=== PATIENT | male | born 1980 | race Caucasian/White ===

== ENCOUNTER 2016-10-29 21:00 | Emergency (ER) | payer OTHER ==
[2016-10-29 21:20] VITALS: BP 158/86
--- NOTE | 2016-10-29 23:52 | ED ---
Antoine Weinberg Adam, scribed for Rashel Azevedo MD on 10/29/16 at 2129 . Complex/Multi-Sys Presentation - HPI Summary HPI Summary: Pt is a 35 year old male presenting with concerns about fluctuating body temperature today. He states that his temperature was 95.6 F at 14:00 today, using an oral thermometer. He also c/o sinus congestion for months and has been on prednisone for 6 days (with 4 left). He began having a sinus FOX today. He also c/o intermittent diarrhea and constipation for over a month. He reports having a productive cough with phlegm as well. PMHx of thyroid disease, asthma, sleep apnea, and anxiety. - History Of Current Complaint Chief Complaint: EDGeneral Time Seen by Provider: 10/29/16 21:21 Hx Obtained From: Patient Onset/Duration: Gradual Onset, Lasting Hours, Still Present Timing: Constant Severity Currently: Moderate Severity Initially: Moderate Character: Unable To Describe - Fluctuating temperature Aggravating Factor(s): Nothing Alleviating Factor(s): Nothing Associated Signs And Symptoms: Positive: Other - Sinus congestion - Allergies/Home Medications Allergies/Adverse Reactions: Allergies Allergy/AdvReac Type Severity Reaction Status Date / Time Bupropion [From Zyban] Allergy Severe Difficulty Verified 10/17/16 16:58 Breathing Penicillins Allergy Severe Rash Verified 10/17/16 16:58 Cephalexin [From Keflex] Allergy Mild Rash Verified 10/17/16 16:58 Famotidine [From Pepcid AC] Allergy Mild Rash Verified 10/17/16 16:58 Fluticasone Allergy Mild Difficulty Verified 10/17/16 16:58 [From Advair Diskus] Breathing Moxifloxacin [From Avelox] Allergy Mild Hives Verified 10/17/16 16:58 Omeprazole [From Prilosec] Allergy Mild Rash Verified 10/17/16 16:58 Quinolones Allergy Mild Rash Verified 10/17/16 16:58 Salmeterol Allergy Mild Difficulty Verified 10/17/16 16:58 [From Advair Diskus] Breathing Sulfamethoxazole Allergy Mild Rash Verified 10/17/16 16:58 w/Trimethoprim [From Bactrim] Codeine Allergy Unknown Difficulty Verified 10/17/16 16:58 Breathing Doxycycline Allergy Unknown Rash Verified 10/17/16 16:58 Sertraline [From Zoloft] AdvReac Severe Hallucinati Verified 10/17/16 16:58 ons Buspirone [From Buspar] AdvReac Mild Dizziness Verified 10/17/16 16:58 Escitalopram [From Lexapro] AdvReac Unknown See Comment Verified 10/17/16 16:58 Citalopram [From Celexa] AdvReac See Comment Verified 10/17/16 16:58 PMH/Surg Hx/FS Hx/Imm Hx Endocrine/Hematology History: Reports: Hx Thyroid Disease Denies: Hx Anticoagulant Therapy, Hx Diabetes Cardiovascular History: Denies: Hx Congestive Heart Failure, Hx Deep Vein Thrombosis, Hx Hypertension , Hx Myocardial Infarction, Hx Pacemaker/ICD Respiratory History: Reports: Hx Asthma, Hx Sleep Apnea - that was cured via surgery Denies: Hx Chronic Obstructive Pulmonary Disease (COPD), Hx Lung Cancer, Hx Pneumonia, Hx Pulmonary Embolism GI History: Denies: Hx Gall Bladder Disease, Hx Gastrointestinal Bleed, Hx Ulcer, Hx Urosepsis History: Denies: Hx Kidney Stones, Hx Renal Disease Sensory History: Denies: Hx Contacts or Glasses, Hx Hearing Aid Opthamlomology History: Denies: Hx Contacts or Glasses Neurological History: Denies: Hx Dementia, Hx Migraine, Hx Seizures Psychiatric History: Reports: Hx Anxiety, Hx Panic Disorder - TO TAKE MEDICATION PRIOR TO MRI Denies: Hx Depression, Hx Schizophrenia, Hx Bipolar Disorder, Hx Substance Abuse - Surgical History Surgery Procedure, Year, and Place: RIGHT ELBOW RECONSTRUCTION SURGERY 1983,. SLEEP APNEA SURGERY 2010 - Tonsilectomy, uvula, stretching throat. CHOLECYSTECTOMY - 09/10/16 - Immunization History Date of Tetanus Vaccine: unknown Date of Influenza Vaccine: 07/12/15 Infectious Disease History: No Infectious Disease History: Denies: Hx Clostridium Difficile, Hx Hepatitis, Hx Human Immunodeficiency Virus (HIV), Hx of Known/Suspected MRSA, Hx Shingles, Hx Tuberculosis, Hx Known/ Suspected VRE, Hx Known/Suspected VRSA, History Other Infectious Disease, Traveled Outside the [place] in Last 30 Days - Family History Known Family History: Positive: Cardiac Disease, Hypertension, Diabetes, Other - TIA on paternal side, cancer on both sides, blood clots Family History: FHx of seasonal allergies - both parents - Social History Occupation: Unemployed Lives: Alone Alcohol Use: None Hx Substance Use: Yes Substance Use Comment - Amount & Last Used: benzo's in the past Hx Tobacco Use: Yes Smoking Status (MU): Former Smoker Type: Cigarettes Amount Used/How Often: 8 cigs per day previously Length of Time of Smoking/Using Tobacco: mid April 2016 Have You Smoked in the Last Year: No Review of Systems Positive: Other - Fluctuating temperature Positive: Other - Sinus congestion Positive: Cough Positive: Diarrhea Positive: Headache All Other Systems Reviewed And Are Negative: Yes Physical Exam Triage Information Reviewed: Yes Vital Signs On Initial Exam: Initial Vitals Temp Pulse Resp BP Pulse Ox 98.7 F 77 16 158/86 95 10/29/16 21:16 10/29/16 21:16 10/29/16 21:16 10/29/16 21:16 10/29/16 21:16 Vital Signs Reviewed: Yes Appearance: Positive: Well-Appearing, No Pain Distress Skin: Positive: Warm, Skin Color Reflects Adequate Perfusion, Dry Head/Face: Positive: Normal Head/Face Inspection Eyes: Positive: Normal ENT: Positive: Normal ENT inspection Neck: Positive: Supple, Nontender Respiratory/Lung Sounds: Positive: Clear to Auscultation, Breath Sounds Present Cardiovascular: Positive: RRR Abdomen Description: Positive: Nontender, Soft Bowel Sounds: Positive: Present Musculoskeletal: Positive: Normal Neurological: Positive: Normal Psychiatric: Positive: Normal, Affect/Mood Appropriate Diagnostics - Vital Signs Vital Signs Temp Pulse Resp BP Pulse Ox 10/29/16 21:16 98.7 F 77 16 158/86 95 - Laboratory Lab Statement: Any lab studies that have been ordered have been reviewed, and results considered in the medical decision making process. Complex Multi-Symp Course/Dx - Diagnoses Provider Diagnoses: Anxiety Discharge - Discharge Plan Condition: Stable Disposition: HOME Referrals: Shad Uriostegui MD [Primary Care Provider] - Additional Instructions: Return to the ED for any problems. Follow up with Dr. Uriostegui. The documentation as recorded by the Antoine castillo Adam accurately reflects the service I personally performed and the decisions made by , Rashel Azevedo MD.
== END 2016-10-29 22:07 | disposition home or self-care (01) ==
LOC: ED 21:00
DX: F41.9 Anxiety disorder, unspecified (principal); Z86.39 Personal history of other endocrine, nutritional and metabolic disease
CPT/HCPCS: 99281

== ENCOUNTER 2016-10-30 19:05 | Emergency (ER) | payer OTHER ==
[2016-10-30 19:20] VITALS: BP 135/95
--- NOTE | 2016-10-30 20:33 | UC ---
Cardiac HPI - HPI Summary HPI Summary: Started getting crampy pain through upper chest, back, shoulders, and low back about 3 hours ago. Has been taking prednisone for several days for asthma symptoms. Denies SOB, sweating, n/v, or hx of cardiac disease. - History of Current Complaint Chief Complaint: UC Stated Complaint: CHEST PAIN Time Seen by Provider: 10/30/16 20:12 Hx Obtained From: Patient Onset/Duration: Sudden Onset, Lasting Minutes, Still Present Timing: Constant Initial Severity: Moderate Current Severity: Mild Chest Pain Location: Diffuse Character: Sharp/Stabbing Aggravating: Exertion, Movement Alleviating: Nothing - getting better over time Associated Signs & Symptoms: Positive: Chest Pain, Cough, Back Pain. Negative: Headaches, Numbness, Tingling, Weakness, Dizziness, SOB, Swelling, Syncope, Fever, Nausea/Vomiting, Hemoptysis - Risk Factors Cardiac Risk Factors: Smoking, Family History - Allergy/Home Medications Allergies/Adverse Reactions: Allergies Allergy/AdvReac Type Severity Reaction Status Date / Time Bupropion [From Zyban] Allergy Severe Difficulty Verified 10/17/16 16:58 Breathing Penicillins Allergy Severe Rash Verified 10/17/16 16:58 Cephalexin [From Keflex] Allergy Mild Rash Verified 10/17/16 16:58 Famotidine [From Pepcid AC] Allergy Mild Rash Verified 10/17/16 16:58 Fluticasone Allergy Mild Difficulty Verified 10/17/16 16:58 [From Advair Diskus] Breathing Moxifloxacin [From Avelox] Allergy Mild Hives Verified 10/17/16 16:58 Omeprazole [From Prilosec] Allergy Mild Rash Verified 10/17/16 16:58 Quinolones Allergy Mild Rash Verified 10/17/16 16:58 Salmeterol Allergy Mild Difficulty Verified 10/17/16 16:58 [From Advair Diskus] Breathing Sulfamethoxazole Allergy Mild Rash Verified 10/17/16 16:58 w/Trimethoprim [From Bactrim] Codeine Allergy Unknown Difficulty Verified 10/17/16 16:58 Breathing Doxycycline Allergy Unknown Rash Verified 10/17/16 16:58 Sertraline [From Zoloft] AdvReac Severe Hallucinati Verified 10/17/16 16:58 ons Buspirone [From Buspar] AdvReac Mild Dizziness Verified 10/17/16 16:58 Escitalopram [From Lexapro] AdvReac Unknown See Comment Verified 10/17/16 16:58 Citalopram [From Celexa] AdvReac See Comment Verified 10/17/16 16:58 Home Medications: Home Medications predniSONE TAB* [Deltasone TAB*] 40 mg PO DAILY 10/30/16 [History Confirmed 01/11] PMH/Surg Hx/FS Hx/Imm Hx Endocrine History Of: Reports: Thyroid Disease, Hypothyroidism, Dyslipidemia - Not on medications. Denies: Diabetes Cardiovascular History Of: Denies: Cardiac Disorders, Hypertension, Pacemaker/ICD, Myocardial Infarction , Congestive Heart Failure, Atrial Fibrillation, Deep Vein Thrombosis, Bleeding Disorders Respiratory History Of: Reports: Asthma Denies: COPD, Bronchitis, Pneumonia, Pulmonary Embolism GI/ History Of: Denies: Gastroesophageal Reflux, Ulcer, Gastrointestinal Bleed, Gall Bladder Disease, Kidney Stones, Diverticulitis, Renal Disease, Urosepsis Neurological History Of: Denies: CVA, Dementia, Seizures, Migraine Psychological History Of: Reports: Anxiety Denies: Depression, Bipolar Disorder, Schizophrenia, Post Traumatic Stress Disorder Cancer History Of: Denies: Lung Cancer, Colorectal Cancer, Breast Cancer, Prostate Cancer, Cervical Cancer Other History Of: Negative For: HIV, Hepatitis B, Hepatitis C, Anticoagulant Therapy - Surgical History Surgical History: Yes Surgery Procedure, Year, and Place: RIGHT ELBOW RECONSTRUCTION SURGERY 1983,. SLEEP APNEA SURGERY 2010 - Tonsilectomy, uvula, stretching throat. CHOLECYSTECTOMY - 09/10/16 - Family History Known Family History: Positive: Cardiac Disease - two uncles in their 40s, no primary relatives, Hypertension, Diabetes, Other - TIA on paternal side, cancer on both sides, blood clots Family History: FHx of seasonal allergies - both parents - Social History Occupation: Employed Part-time Alcohol Use: None Substance Use Type: None Substance Use Comment - Amount & Last Used: benzo's in the past Smoking Status (MU): Former Smoker Type: Cigarettes Amount Used/How Often: 8 cigs per day previously Length of Time of Smoking/Using Tobacco: mid April 2016 Have You Smoked in the Last Year: No When Did the Patient Quit Smoking/Using Tobacco: quit 4 days ago Household Exposure Type: Cigarettes - Immunization History Most Recent Influenza Vaccination: Most Recent Tetanus Shot: utd Most Recent Pneumonia Vaccination: 2016 Review of Systems Constitutional: Negative Skin: Negative Eyes: Negative ENT: Negative Respiratory: Cough Cardiovascular: Chest Pain Gastrointestinal: Negative Genitourinary: Negative Motor: Negative Neurovascular: Negative Musculoskeletal: Negative Neurological: Negative Psychological: Negative All Other Systems Reviewed And Are Negative: Yes Physical Exam Triage Information Reviewed: Yes Appearance: Well-Appearing, No Pain Distress, Well-Nourished Vital Signs: Initial Vital Signs Pulse 88 10/30/16 19:16 Resp 16 10/30/16 19:16 BP 135/95 10/30/16 19:16 Pulse Ox 96 10/30/16 19:16 Vital Signs Reviewed: Yes Eye Exam: Normal Eyes: Positive: Conjunctiva Clear ENT Exam: Normal ENT: Positive: Normal ENT inspection, Hearing grossly normal, Pharynx normal, TMs normal Dental Exam: Normal Dental: Negative: Percussion Tenderness @, Dental Fracture @ Neck exam: Normal Neck: Positive: Supple, Nontender, No Lymphadenopathy Respiratory: Positive: Lungs clear, Normal breath sounds, No respiratory distress, No accessory muscle use. Negative: Chest non-tender - mild soreness with palpation anterior sternum and low back Cardiovascular Exam: Normal Cardiovascular: Positive: RRR, No Murmur Musculoskeletal Exam: Normal Neurological Exam: Normal Neurological: Positive: Alert Psychological Exam: Normal Skin Exam: Normal - Clinical Impression Provider Diagnoses: chest wall pain Discharge - Discharge Plan Condition: Stable Disposition: HOME Patient Education Materials: Thoracic Pain (ED) Referrals: Shad Uriostegui MD [Primary Care Provider] - Additional Instructions: As we discussed, I do not see any strong indications of heart problems on exam. Furthermore, your age helps put you in a low-risk category. If your symptoms suddenly worsen, or if you develop nausea, vomiting, sweating, or shortness of breath, please go right to the emergency department.
== END 2016-10-30 20:28 | disposition home or self-care (01) ==
LOC: UCEAST 19:05
DX: R07.89 Other chest pain (principal); J45.909 Unspecified asthma, uncomplicated; Z87.891 Personal history of nicotine dependence; Z88.0 Allergy status to penicillin; Z88.1 Allergy status to other antibiotic agents; Z88.5 Allergy status to narcotic agent; Z88.8 Allergy status to other drugs, medicaments and biological substances
CPT/HCPCS: 93005; 99211; G0463

== ENCOUNTER 2016-11-01 22:31 | Emergency (ER) | payer OTHER ==
--- NOTE | 2016-11-01 23:47 | ED ---
Nina Weinberg Claudia, scribed for Tj Villarreal MD on 11/01/16 at 2309 . Abdominal Pain/Male - HPI Summary HPI Summary: 35 year old male presents to the ED with abd pain and nausea. Pt notes gradual onset over the last week worsening today. Pt describes the abd pain as cramping. Pt was able to eat a sub and several fiber one bars. Pt notes pain aggravated with PO intake. - History of Current Complaint Chief Complaint: EDAbdPain Stated Complaint: ABD PAIN Time Seen by Provider: 11/01/16 23:03 Hx Obtained From: Patient Onset/Duration: Gradual Onset, Lasting Days, Worse Since - today Timing: Constant Location: Diffuse Radiates: No Character: Cramping Aggravating Factor(s): Food Alleviating Factor(s): Nothing Associated Signs And Symptoms: Positive: Nausea. Negative: Vomiting, Diarrhea - Allergies/Home Medications Allergies/Adverse Reactions: Allergies Allergy/AdvReac Type Severity Reaction Status Date / Time Bupropion [From Zyban] Allergy Severe Difficulty Verified 10/17/16 16:58 Breathing Penicillins Allergy Severe Rash Verified 10/17/16 16:58 Cephalexin [From Keflex] Allergy Mild Rash Verified 10/17/16 16:58 Famotidine [From Pepcid AC] Allergy Mild Rash Verified 10/17/16 16:58 Fluticasone Allergy Mild Difficulty Verified 10/17/16 16:58 [From Advair Diskus] Breathing Moxifloxacin [From Avelox] Allergy Mild Hives Verified 10/17/16 16:58 Omeprazole [From Prilosec] Allergy Mild Rash Verified 10/17/16 16:58 Quinolones Allergy Mild Rash Verified 10/17/16 16:58 Salmeterol Allergy Mild Difficulty Verified 10/17/16 16:58 [From Advair Diskus] Breathing Sulfamethoxazole Allergy Mild Rash Verified 10/17/16 16:58 w/Trimethoprim [From Bactrim] Codeine Allergy Unknown Difficulty Verified 10/17/16 16:58 Breathing Doxycycline Allergy Unknown Rash Verified 10/17/16 16:58 Sertraline [From Zoloft] AdvReac Severe Hallucinati Verified 10/17/16 16:58 ons Buspirone [From Buspar] AdvReac Mild Dizziness Verified 10/17/16 16:58 Escitalopram [From Lexapro] AdvReac Unknown See Comment Verified 10/17/16 16:58 Citalopram [From Celexa] AdvReac See Comment Verified 10/17/16 16:58 PMH/Surg Hx/FS Hx/Imm Hx Previously Healthy: Yes Endocrine/Hematology History: Reports: Hx Thyroid Disease Denies: Hx Anticoagulant Therapy, Hx Diabetes Cardiovascular History: Denies: Hx Congestive Heart Failure, Hx Deep Vein Thrombosis, Hx Hypertension , Hx Myocardial Infarction, Hx Pacemaker/ICD Respiratory History: Reports: Hx Asthma, Hx Sleep Apnea - that was cured via surgery Denies: Hx Chronic Obstructive Pulmonary Disease (COPD), Hx Lung Cancer, Hx Pneumonia, Hx Pulmonary Embolism GI History: Denies: Hx Gall Bladder Disease, Hx Gastrointestinal Bleed, Hx Ulcer, Hx Urosepsis History: Denies: Hx Kidney Stones, Hx Renal Disease Sensory History: Denies: Hx Contacts or Glasses, Hx Hearing Aid Opthamlomology History: Denies: Hx Contacts or Glasses Neurological History: Denies: Hx Dementia, Hx Migraine, Hx Seizures Psychiatric History: Reports: Hx Anxiety, Hx Panic Disorder - TO TAKE MEDICATION PRIOR TO MRI Denies: Hx Depression, Hx Schizophrenia, Hx Bipolar Disorder, Hx Substance Abuse - Surgical History Surgery Procedure, Year, and Place: RIGHT ELBOW RECONSTRUCTION SURGERY 1983,. SLEEP APNEA SURGERY 2010 - Tonsilectomy, uvula, stretching throat. CHOLECYSTECTOMY - 09/10/16 - Immunization History Date of Tetanus Vaccine: unknown Date of Influenza Vaccine: 07/12/15 Infectious Disease History: Denies: Hx Clostridium Difficile, Hx Hepatitis, Hx Human Immunodeficiency Virus (HIV), Hx of Known/Suspected MRSA, Hx Shingles, Hx Tuberculosis, Hx Known/ Suspected VRE, Hx Known/Suspected VRSA, History Other Infectious Disease, Traveled Outside the [place] in Last 30 Days - Family History Known Family History: Positive: Cardiac Disease - two uncles in their 40s, no primary relatives, Hypertension, Diabetes, Other - TIA on paternal side, cancer on both sides, blood clots Family History: FHx of seasonal allergies - both parents - Social History Occupation: Employed Full-time Lives: With Family Alcohol Use: None Hx Substance Use: Yes Substance Use Type: Reports: None Substance Use Comment - Amount & Last Used: benzo's in the past Hx Tobacco Use: Yes Smoking Status (MU): Former Smoker Type: Cigarettes Amount Used/How Often: 8 cigs per day previously Length of Time of Smoking/Using Tobacco: mid April 2016 Have You Smoked in the Last Year: No Review of Systems Constitutional: Negative Negative: Fever Eyes: Negative ENT: Negative Cardiovascular: Negative Respiratory: Negative Positive: Abdominal Pain, Nausea. Negative: Vomiting Genitourinary: Negative Musculoskeletal: Negative Skin: Negative Neurological: Negative Psychological: Normal All Other Systems Reviewed And Are Negative: Yes Physical Exam Triage Information Reviewed: Yes Vital Signs Reviewed: Yes Appearance: Positive: Well-Appearing, No Pain Distress Skin: Positive: Warm Head/Face: Positive: Normal Head/Face Inspection Eyes: Positive: GABINO ENT: Positive: Hearing grossly normal Neck: Positive: Supple Respiratory/Lung Sounds: Positive: Clear to Auscultation, Breath Sounds Present Cardiovascular: Positive: Normal Abdomen Description: Positive: Nontender, No Organomegaly, Soft Bowel Sounds: Positive: Present Neurological: Positive: Sensory/Motor Intact, Alert, Oriented to Person Place, Time, Normal Gait Psychiatric: Positive: Affect/Mood Appropriate AVPU Assessment: Alert - [place] Coma Scale Coma Scale Total: 15 Re-Evaluation - Re-Evaluation First Eval Change: Improved Abdominal Pain Fem Course/Dx - Course Assessment/Plan: Pt presents with abd pain and nausea. After observation pt is agreeable with d/c home and follow-up with PCP and bland diet. - Diagnoses Provider Diagnoses: Abdominal pain Discharge - Discharge Plan Condition: Stable Disposition: HOME Patient Education Materials: Diet for Ulcers and Gastritis (ED), Acute Nausea and Vomiting (ED), Acute Abdominal Pain (ED) Referrals: Shad Uriostegui MD [Primary Care Provider] - 2 Days The documentation as recorded by the Nina castillo Claudia accurately reflects the service I personally performed and the decisions made by , Tj Villarreal MD.
== END 2016-11-01 23:29 | disposition home or self-care (01) ==
LOC: ED 22:31
DX: R10.9 Unspecified abdominal pain (principal); R11.0 Nausea; Z87.891 Personal history of nicotine dependence
CPT/HCPCS: 99285

== ENCOUNTER 2016-11-02 17:06 | Emergency (ER) | payer OTHER ==
[2016-11-02 17:29] VITALS: BP 135/95
[2016-11-03 12:14] LABS: Hematocrit 50 % (42-52); Hemoglobin 16.5 g/dl (14.0-18.0); Mean Corpuscular HGB Conc 33 g/dl (31-36); Mean Corpuscular Hemoglobin 29 pg (27-31); Mean Corpuscular Volume 87 fL (80-94); Mean Platelet Volume 10 um3 (7.4-10.4); Red Blood Count 5.75 10^6/ul (4.0-5.4); Red Cell Distribution Width 14 % (10.5-15); White Blood Count 13.2 10^3/ul (3.5-10.8)
[2016-11-03 12:15] LABS: Add Diff/Slide Review? Slide Review Added; Comments Flag Yes
[2016-11-03 12:31] LABS: TSH (Thyroid Stimulating Horm) 1.57 mcIU/mL (0.34-5.60)
[2016-11-03 13:02] LABS: BUN/Creatinine Ratio 13.4 (8-20); Calcium 10.3 mg/dL (8.6-10.3); EGFR Non-African American 105.7 (>60); Magnesium 2.4 mg/dL (1.9-2.7); Potassium 4.4 mmol/L (3.5-5.0)
--- NOTE | 2016-12-17 14:23 | UC ---
Qiana Weinberg Anna, scribed for Briana Andrade MD on 11/02/16 at 1812 . Dizzy HPI HPI Summary: Patient is a 35 y/o male coming to [facility] presenting with gradual worsening of dizziness and lightheadedness that began one week ago. The patient additionally reports left abdominal pain and shoulder pain that began at the same time. Per triage notes, he additionally reports his appetite has decreased over the last week. He has also felt some congestion. He had a thyroid panel done in July that came back normal. He reports his anxiety has been exacerbated lately, in addition to his depression. He has an appointment scheduled with his doctor for Saturday, four days from now. Mr. Segovia is requesting that his thyroid be checked. "I think it is off." - History Of Current Complaint Chief Complaint: UCDizziness Stated Complaint: LIGHTHEADED Time Seen by Provider: 11/02/16 17:47 Hx Obtained From: Patient - Allergies/Home Medications Allergies/Adverse Reactions: Allergies Allergy/AdvReac Type Severity Reaction Status Date / Time Bupropion [From Zyban] Allergy Severe Difficulty Verified 12/16/16 13:57 Breathing Penicillins Allergy Severe Rash Verified 12/16/16 13:57 Cephalexin [From Keflex] Allergy Mild Rash Verified 12/16/16 13:57 Famotidine [From Pepcid AC] Allergy Mild Rash Verified 12/16/16 13:57 Fluticasone Allergy Mild Difficulty Verified 12/16/16 13:57 [From Advair Diskus] Breathing Moxifloxacin [From Avelox] Allergy Mild Hives Verified 12/16/16 13:57 Omeprazole [From Prilosec] Allergy Mild Rash Verified 12/16/16 13:57 Quinolones Allergy Mild Rash Verified 12/16/16 13:57 Salmeterol Allergy Mild Difficulty Verified 12/16/16 13:57 [From Advair Diskus] Breathing Sulfamethoxazole Allergy Mild Rash Verified 12/16/16 13:57 w/Trimethoprim [From Bactrim] Codeine Allergy Unknown Difficulty Verified 12/16/16 13:57 Breathing Doxycycline Allergy Unknown Rash Verified 12/16/16 13:57 Albuterol [From Ventolin] Allergy Difficulty Verified 12/16/16 13:57 Breathing Sertraline [From Zoloft] AdvReac Severe Hallucinati Verified 12/16/16 13:57 ons Buspirone [From Buspar] AdvReac Mild Dizziness Verified 12/16/16 13:57 Escitalopram [From Lexapro] AdvReac Unknown See Comment Verified 12/16/16 13:57 Citalopram [From Celexa] AdvReac See Comment Verified 12/16/16 13:57 PMH/Surg Hx/FS Hx/Imm Hx Endocrine History Of: Reports: Thyroid Disease, Hypothyroidism, Dyslipidemia - Not on medications. Denies: Diabetes Cardiovascular History Of: Denies: Cardiac Disorders, Hypertension, Pacemaker/ICD, Myocardial Infarction , Congestive Heart Failure, Atrial Fibrillation, Deep Vein Thrombosis, Bleeding Disorders Respiratory History Of: Reports: Asthma Denies: COPD, Bronchitis, Pneumonia, Pulmonary Embolism GI/ History Of: Denies: Gastroesophageal Reflux, Ulcer, Gastrointestinal Bleed, Gall Bladder Disease, Kidney Stones, Diverticulitis, Renal Disease, Urosepsis Neurological History Of: Denies: CVA, Dementia, Seizures, Migraine Psychological History Of: Reports: Anxiety Denies: Depression, Bipolar Disorder, Schizophrenia, Post Traumatic Stress Disorder Cancer History Of: Denies: Lung Cancer, Colorectal Cancer, Breast Cancer, Prostate Cancer, Cervical Cancer Other History Of: Negative For: HIV, Hepatitis B, Hepatitis C, Anticoagulant Therapy - Surgical History Surgical History: Yes Surgery Procedure, Year, and Place: RIGHT ELBOW RECONSTRUCTION SURGERY 1983,. SLEEP APNEA SURGERY 2010 - Tonsilectomy, uvula, stretching throat. CHOLECYSTECTOMY - 09/10/16 - Family History Known Family History: Positive: Cardiac Disease - two uncles in their 40s, no primary relatives, Hypertension, Diabetes, Other - TIA on paternal side, cancer on both sides, blood clots Family History: FHx of seasonal allergies - both parents - Social History Alcohol Use: None Substance Use Type: None Substance Use Comment - Amount & Last Used: benzo's in the past Smoking Status (MU): Former Smoker Type: Cigarettes Amount Used/How Often: 8 cigs per day previously Length of Time of Smoking/Using Tobacco: mid April 2016 Have You Smoked in the Last Year: No When Did the Patient Quit Smoking/Using Tobacco: quit 4 days ago Household Exposure Type: Cigarettes - Immunization History Most Recent Influenza Vaccination: 2015/2016 Most Recent Tetanus Shot: utd Most Recent Pneumonia Vaccination: 2016 Review of Systems Constitutional: Other - change in appetite ENT: Other - Congestion Gastrointestinal: Abdominal Pain Musculoskeletal: Arthralgia - shoulder pain Neurological: Other - dizziness, lightheadedness Psychological: Anxious, Depressed All Other Systems Reviewed And Are Negative: Yes Physical Exam Triage Information Reviewed: Yes Appearance: Well-Nourished - d Vital Signs: Initial Vital Signs Temp 98.6 F 11/02/16 17:25 Pulse 78 11/02/16 17:25 Resp 18 11/02/16 17:25 BP 135/95 11/02/16 17:25 Pulse Ox 97 11/02/16 17:25 Vital Signs Reviewed: Yes Eye Exam: Normal ENT Exam: Normal ENT: Positive: TM dull - Left TM dull and mendez Neck exam: Normal - No adenopathy appreciated Respiratory Exam: Normal - No dyspnea, no tachypnea, normal respiratory rate. Chest non-tender, lungs clear, normal breath sounds, no respiratory distress, no accessory muscle use. Cardiovascular Exam: Normal - RRR, No murmur, pulses normal - sitting up, Brisk capillary refill Abdomen Description: Positive: Nontender, No Organomegaly, Soft Bowel Sounds: Positive: Hyperactive Musculoskeletal Exam: Normal Musculoskeletal: Positive: Strength Intact Neurological Exam: Normal - Nonfocal, grossly intact Psychological Exam: Normal - Conversing easily and appropriately Skin Exam: Normal - no visible or reported rash Diagnostics - EKG Cardiac Rate: NL - 64 bpm, SR, no change from 10/30/2016 Dizzy Course/Dx - Course Course Of Treatment: No new problems in CCC. Considered below differential diagnoses. Reviewed ed / ccc reports dating back to Aug 2016. Reviewed associated ancillaries. EKG w/o sign change from 10/30/16. Labs drawn (ft4, tsh , bmp, magn). [facility] glucose 113mg/dl. Reviewed w / pt and lubricator granulator present. F/u on Saturday as scheduled. Seek medical attention for worse or new problems in the meantime. Questions answered to the best of my ability. - Differential Dx/Diagnosis Provider Diagnoses: Lightheaded Discharge - Discharge Plan Condition: Stable Disposition: HOME Patient Education Materials: Lightheadedness (ED) Referrals: Shad Uriostegui MD [Primary Care Provider] - Additional Instructions: Please follow up with your primary care provider on Saturday as scheduled. Seek medical attention for worsening problems in the meantime. Blood tests today. See attached. Blood glucose fingerstick is 113mg/dl. The documentation as recorded by the Qiana castillo Anna accurately reflects the service I personally performed and the decisions made by me, Briana Andrade MD.
== END 2016-11-02 19:30 | disposition home or self-care (01) ==
LOC: UCEAST 17:06
DX: R42 Dizziness and giddiness (principal); R10.9 Unspecified abdominal pain; M25.519 Pain in unspecified shoulder; E03.9 Hypothyroidism, unspecified; Z90.49 Acquired absence of other specified parts of digestive tract; Z88.1 Allergy status to other antibiotic agents; Z88.0 Allergy status to penicillin; Z88.2 Allergy status to sulfonamides; Z88.8 Allergy status to other drugs, medicaments and biological substances; Z87.891 Personal history of nicotine dependence
CPT/HCPCS: 36415; 80048; 81002; 83735; 84439; 84443; 85025; 93005; 99211; G0463

== ENCOUNTER 2016-11-03 21:24 | Emergency (ER) | payer OTHER ==
[2016-11-03 21:41] VITALS: BP 147/84
--- NOTE | 2016-11-08 06:57 | ED ---
Praneeth Weinberg Billy, scribed for Tj Villarreal MD on 11/03/16 at 2155 . Complex/Multi-Sys Presentation - HPI Summary HPI Summary: 35 year-old male to the ED with CC of sinus congestion and intermittent dizziness for several days. He was seen at the [facility] a few days ago and was told to come to the ED if his symptoms do not improve. He has been taking benadryl and prednisone for his symptoms with little improvement. He denies any other complaints at this time. - History Of Current Complaint Chief Complaint: EDGeneral Time Seen by Provider: 11/03/16 21:48 Hx Obtained From: Patient Onset/Duration: Gradual Onset, Lasting Days, Still Present Timing: Intermittent, Lasting:, Days Severity Currently: Moderate Severity Initially: Moderate Aggravating Factor(s): n/a Alleviating Factor(s): benadryl, prednisone Associated Signs And Symptoms: Positive: Dizziness, Other - sinus discomfort - Allergies/Home Medications Allergies/Adverse Reactions: Allergies Allergy/AdvReac Type Severity Reaction Status Date / Time Bupropion [From Zyban] Allergy Severe Difficulty Verified 10/17/16 16:58 Breathing Penicillins Allergy Severe Rash Verified 10/17/16 16:58 Cephalexin [From Keflex] Allergy Mild Rash Verified 10/17/16 16:58 Famotidine [From Pepcid AC] Allergy Mild Rash Verified 10/17/16 16:58 Fluticasone Allergy Mild Difficulty Verified 10/17/16 16:58 [From Advair Diskus] Breathing Moxifloxacin [From Avelox] Allergy Mild Hives Verified 10/17/16 16:58 Omeprazole [From Prilosec] Allergy Mild Rash Verified 10/17/16 16:58 Quinolones Allergy Mild Rash Verified 10/17/16 16:58 Salmeterol Allergy Mild Difficulty Verified 10/17/16 16:58 [From Advair Diskus] Breathing Sulfamethoxazole Allergy Mild Rash Verified 10/17/16 16:58 w/Trimethoprim [From Bactrim] Codeine Allergy Unknown Difficulty Verified 10/17/16 16:58 Breathing Doxycycline Allergy Unknown Rash Verified 10/17/16 16:58 Sertraline [From Zoloft] AdvReac Severe Hallucinati Verified 10/17/16 16:58 ons Buspirone [From Buspar] AdvReac Mild Dizziness Verified 10/17/16 16:58 Escitalopram [From Lexapro] AdvReac Unknown See Comment Verified 10/17/16 16:58 Citalopram [From Celexa] AdvReac See Comment Verified 10/17/16 16:58 PMH/Surg Hx/FS Hx/Imm Hx Endocrine/Hematology History: Reports: Hx Thyroid Disease Denies: Hx Anticoagulant Therapy, Hx Diabetes Cardiovascular History: Denies: Hx Congestive Heart Failure, Hx Deep Vein Thrombosis, Hx Hypertension , Hx Myocardial Infarction, Hx Pacemaker/ICD Respiratory History: Reports: Hx Asthma, Hx Sleep Apnea - that was cured via surgery Denies: Hx Chronic Obstructive Pulmonary Disease (COPD), Hx Lung Cancer, Hx Pneumonia, Hx Pulmonary Embolism GI History: Denies: Hx Gall Bladder Disease, Hx Gastrointestinal Bleed, Hx Ulcer, Hx Urosepsis History: Denies: Hx Kidney Stones, Hx Renal Disease Sensory History: Denies: Hx Contacts or Glasses, Hx Hearing Aid Opthamlomology History: Denies: Hx Contacts or Glasses Neurological History: Denies: Hx Dementia, Hx Migraine, Hx Seizures Psychiatric History: Reports: Hx Anxiety, Hx Panic Disorder - TO TAKE MEDICATION PRIOR TO MRI Denies: Hx Depression, Hx Schizophrenia, Hx Bipolar Disorder, Hx Substance Abuse - Surgical History Surgery Procedure, Year, and Place: RIGHT ELBOW RECONSTRUCTION SURGERY 1983,. SLEEP APNEA SURGERY 2010 - Tonsilectomy, uvula, stretching throat. CHOLECYSTECTOMY - 09/10/16 - Immunization History Date of Tetanus Vaccine: unknown Date of Influenza Vaccine: 07/12/15 Infectious Disease History: No Infectious Disease History: Denies: Hx Clostridium Difficile, Hx Hepatitis, Hx Human Immunodeficiency Virus (HIV), Hx of Known/Suspected MRSA, Hx Shingles, Hx Tuberculosis, Hx Known/ Suspected VRE, Hx Known/Suspected VRSA, History Other Infectious Disease, Traveled Outside the [place] in Last 30 Days - Family History Known Family History: Positive: Cardiac Disease - two uncles in their 40s, no primary relatives, Hypertension, Diabetes, Other - TIA on paternal side, cancer on both sides, blood clots Family History: FHx of seasonal allergies - both parents - Social History Alcohol Use: None Hx Substance Use: Yes Substance Use Type: Reports: None Substance Use Comment - Amount & Last Used: benzo's in the past Hx Tobacco Use: Yes Smoking Status (MU): Former Smoker Type: Cigarettes Amount Used/How Often: 8 cigs per day previously Length of Time of Smoking/Using Tobacco: mid April 2016 Have You Smoked in the Last Year: No Review of Systems Positive: Other - sinus discomfort Neurological: Other - dizziness All Other Systems Reviewed And Are Negative: Yes Physical Exam Triage Information Reviewed: Yes Vital Signs On Initial Exam: Initial Vitals Temp Pulse Resp BP Pulse Ox 98.0 F 80 15 147/84 97 11/03/16 21:26 11/03/16 21:26 11/03/16 21:26 11/03/16 21:26 11/03/16 21:26 Vital Signs Reviewed: Yes Appearance: Positive: Well-Appearing, No Pain Distress Skin: Positive: Warm Eyes: Positive: Normal ENT: Positive: Hearing grossly normal Neck: Positive: Supple Respiratory/Lung Sounds: Positive: Clear to Auscultation, Breath Sounds Present Cardiovascular: Positive: Normal Abdomen Description: Positive: Nontender, Soft Bowel Sounds: Positive: Present Musculoskeletal: Positive: Strength/ROM Intact Neurological: Positive: Sensory/Motor Intact, Alert, Oriented to Person Place, Time, Normal Gait Psychiatric: Positive: Affect/Mood Appropriate Diagnostics - Vital Signs Vital Signs Temp Pulse Resp BP Pulse Ox 11/03/16 21:26 98.0 F 80 15 147/84 97 - Laboratory Lab Statement: Any lab studies that have been ordered have been reviewed, and results considered in the medical decision making process. Complex Multi-Symp Course/Dx - Diagnoses Provider Diagnoses: Upper respiratory infection Discharge - Discharge Plan Condition: Guarded Disposition: HOME Patient Education Materials: Upper Respiratory Infection (ED) Referrals: Shad Uriostegui MD [Primary Care Provider] - Additional Instructions: USE A HUMIDIFIER TO IMPROVE SYMPTOMS. The documentation as recorded by the Praneeth castillo Billy accurately reflects the service I personally performed and the decisions made by , Tj Villarreal MD.
== END 2016-11-03 22:04 | disposition home or self-care (01) ==
LOC: ED 21:24
DX: J06.9 Acute upper respiratory infection, unspecified (principal); Z87.891 Personal history of nicotine dependence; Z88.0 Allergy status to penicillin; Z88.2 Allergy status to sulfonamides; Z88.5 Allergy status to narcotic agent
CPT/HCPCS: 99281

== ENCOUNTER 2016-11-11 19:06 | Emergency (ER) | payer OTHER ==
[2016-11-11 19:25] VITALS: BP 145/89
[2016-11-11] MEDS ORDERED: Ondansetron ODT TAB* 4 MG PO ONE (19:27)
[2016-11-11] MEDS ORDERED: Ondansetron ODT TAB* 4 MG ONE (19:30)
--- NOTE | 2016-11-11 20:15 | UC ---
Denise Weinberg Michael, scribed for Marii Schultz MD on 11/11/16 at 1934 . General HPI - HPI Summary HPI Summary: 35 y/o male comes to the presenting with intermittent episodes for diarrhea for one month. The pt reports after every meal he has a diarrhea episode. He also c/o n/v that started 3 days ago and diffuse abd pain. The abd pain is rated a 7 out of 10 on a pain assessment scale. The pt denies fever. The PMHx is significant for Cholecystectomy in August 2016. 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 Negative: Fever - Allergy/Home Medications Allergies/Adverse Reactions: Allergies Allergy/AdvReac Type Severity Reaction Status Date / Time Bupropion [From Zyban] Allergy Severe Difficulty Verified 10/17/16 16:58 Breathing Penicillins Allergy Severe Rash Verified 10/17/16 16:58 Cephalexin [From Keflex] Allergy Mild Rash Verified 10/17/16 16:58 Famotidine [From Pepcid AC] Allergy Mild Rash Verified 10/17/16 16:58 Fluticasone Allergy Mild Difficulty Verified 10/17/16 16:58 [From Advair Diskus] Breathing Moxifloxacin [From Avelox] Allergy Mild Hives Verified 10/17/16 16:58 Omeprazole [From Prilosec] Allergy Mild Rash Verified 10/17/16 16:58 Quinolones Allergy Mild Rash Verified 10/17/16 16:58 Salmeterol Allergy Mild Difficulty Verified 10/17/16 16:58 [From Advair Diskus] Breathing Sulfamethoxazole Allergy Mild Rash Verified 10/17/16 16:58 w/Trimethoprim [From Bactrim] Codeine Allergy Unknown Difficulty Verified 10/17/16 16:58 Breathing Doxycycline Allergy Unknown Rash Verified 10/17/16 16:58 Sertraline [From Zoloft] AdvReac Severe Hallucinati Verified 10/17/16 16:58 ons Buspirone [From Buspar] AdvReac Mild Dizziness Verified 10/17/16 16:58 Escitalopram [From Lexapro] AdvReac Unknown See Comment Verified 10/17/16 16:58 Citalopram [From Celexa] AdvReac See Comment Verified 10/17/16 16:58 Home Medications: Home Medications Gabapentin CAP(*) [Neurontin 300 CAP(*)] 300 mg PO BEDTIME 11/11/16 [History Confirmed 11/11/16] PMH/Surg Hx/FS Hx/Imm Hx Endocrine History Of: Reports: Thyroid Disease, Hypothyroidism, Dyslipidemia - Not on medications. Respiratory History Of: Reports: Asthma Psychological History Of: Reports: Anxiety - Surgical History Surgical History: Yes Surgery Procedure, Year, and Place: RIGHT ELBOW RECONSTRUCTION SURGERY 1983,. SLEEP APNEA SURGERY 2010 - Tonsilectomy, uvula, stretching throat. CHOLECYSTECTOMY - 09/10/16 - Family History Known Family History: Positive: Cardiac Disease - two uncles in their 40s, no primary relatives, Hypertension, Diabetes, Other - TIA on paternal side, cancer on both sides, blood clots Family History: FHx of seasonal allergies - both parents - Social History Occupation: Unemployed Lives: Alone Alcohol Use: None Substance Use Type: None Substance Use Comment - Amount & Last Used: benzo's in the past Smoking Status (MU): Former Smoker Type: Cigarettes Amount Used/How Often: 8 cigs per day previously Length of Time of Smoking/Using Tobacco: mid April 2016 Have You Smoked in the Last Year: No When Did the Patient Quit Smoking/Using Tobacco: quit 4 days ago Household Exposure Type: Cigarettes - Immunization History Most Recent Influenza Vaccination: 2015/2016 Most Recent Tetanus Shot: utd Most Recent Pneumonia Vaccination: 2016 Review of Systems Constitutional: Negative - fever Gastrointestinal: Abdominal Pain, Vomiting, Diarrhea, Other - nausea All Other Systems Reviewed And Are Negative: Yes Physical Exam Triage Information Reviewed: Yes Appearance: No Pain Distress, Well-Nourished, Ill-Appearing Vital Signs: Initial Vital Signs Temp 99.0 F 11/11/16 19:22 Pulse 80 11/11/16 19:22 Resp 18 11/11/16 19:22 BP 145/89 11/11/16 19:22 Pulse Ox 97 11/11/16 19:22 Vital Signs Reviewed: Yes Eyes: Positive: Conjunctiva Clear ENT Exam: Normal Neck: Positive: Supple Respiratory: Positive: Lungs clear, Normal breath sounds, No respiratory distress Cardiovascular: Positive: RRR, No Murmur, Pulses Normal, Brisk Capillary Refill Abdomen Description: Positive: Nontender, No Organomegaly, Soft, Other: - well healed gallbladder scars. Negative: CVA Tenderness (R), CVA Tenderness (L), Distended, Guarding, McBurney's Point Tenderness, Peritoneal Signs, Splenomegaly Bowel Sounds: Positive: Present Musculoskeletal: Positive: Strength Intact, ROM Intact Neurological: Positive: Alert, Muscle Tone Normal Psychological Exam: Normal Skin Exam: Normal Course/Dx - Course Course Of Treatment: pt unable to provide stool speciment in UC. Sent home with stool kit. - Differential Dx - Multi-Symptom Differential Diagnoses: Metabolic Abnormality, Other - gastroenteritis Provider Diagnoses: gastroenteritis Discharge - Discharge Plan Condition: Stable Disposition: HOME Patient Education Materials: Gastroenteritis (ED) Referrals: Shad Uriostegui MD [Primary Care Provider] - Additional Instructions: Dr. Schultz has sent you home with a stool kit so you can give us a sample. We an base our treatment based on those results. Dr. Schultz gave you one tablet of ondansetron 4mg as treatment for nausea. The documentation as recorded by the Denise castillo Michael accurately reflects the service I personally performed and the decisions made by me, Marii Schultz MD.
== END 2016-11-11 20:16 | disposition home or self-care (01) ==
LOC: UCEAST 19:06
DX: K52.9 Noninfective gastroenteritis and colitis, unspecified (principal); Z88.1 Allergy status to other antibiotic agents; Z88.6 Allergy status to analgesic agent; Z88.0 Allergy status to penicillin; Z88.2 Allergy status to sulfonamides; Z88.8 Allergy status to other drugs, medicaments and biological substances; Z90.49 Acquired absence of other specified parts of digestive tract; Z87.891 Personal history of nicotine dependence
CPT/HCPCS: 99212; A9270-GY; G0463

== ENCOUNTER 2016-12-05 07:04 | Emergency (ER) | payer OTHER ==
[2016-12-05 07:20] VITALS: BP 155/92
--- NOTE | 2016-12-05 07:25 | UC ---
Respiratory Complaint HPI - HPI Summary HPI Summary: 1.5 WEEKS OF COUGH AND CONGESTION. NO FEVER, ST, EAR PAIN, N/V/D. - History of Current Complaint Chief Complaint: UCRespiratory Stated Complaint: COUGH CONGESTION Time Seen by Provider: 12/05/16 07:22 Hx Obtained From: Patient Onset/Duration: Gradual Onset, Lasting Days, Still Present Timing: Constant Severity Initially: Moderate Severity Currently: Moderate Pain Intensity: 0 Pain Scale Used: 0-10 Numeric Character: Cough: Productive Aggravating Factors: Nothing Alleviating Factors: Nothing Associated Signs And Symptoms: Positive: URI, Nasal Congestion. Negative: Dyspnea, Fever, Chills, Pleuritic Chest Pain, Wheezing, Hemoptysis, Dizziness - Allergies/Home Medications Allergies/Adverse Reactions: Allergies Allergy/AdvReac Type Severity Reaction Status Date / Time Bupropion [From Zyban] Allergy Severe Difficulty Verified 10/17/16 16:58 Breathing Penicillins Allergy Severe Rash Verified 10/17/16 16:58 Cephalexin [From Keflex] Allergy Mild Rash Verified 10/17/16 16:58 Famotidine [From Pepcid AC] Allergy Mild Rash Verified 10/17/16 16:58 Fluticasone Allergy Mild Difficulty Verified 10/17/16 16:58 [From Advair Diskus] Breathing Moxifloxacin [From Avelox] Allergy Mild Hives Verified 10/17/16 16:58 Omeprazole [From Prilosec] Allergy Mild Rash Verified 10/17/16 16:58 Quinolones Allergy Mild Rash Verified 10/17/16 16:58 Salmeterol Allergy Mild Difficulty Verified 10/17/16 16:58 [From Advair Diskus] Breathing Sulfamethoxazole Allergy Mild Rash Verified 10/17/16 16:58 w/Trimethoprim [From Bactrim] Codeine Allergy Unknown Difficulty Verified 10/17/16 16:58 Breathing Doxycycline Allergy Unknown Rash Verified 10/17/16 16:58 Albuterol [From Ventolin] Allergy Difficulty Verified 12/05/16 07:11 Breathing Sertraline [From Zoloft] AdvReac Severe Hallucinati Verified 10/17/16 16:58 ons Buspirone [From Buspar] AdvReac Mild Dizziness Verified 10/17/16 16:58 Escitalopram [From Lexapro] AdvReac Unknown See Comment Verified 10/17/16 16:58 Citalopram [From Celexa] AdvReac See Comment Verified 10/17/16 16:58 PMH/Surg Hx/FS Hx/Imm Hx Endocrine History Of: Reports: Thyroid Disease, Hypothyroidism, Dyslipidemia - Not on medications. Denies: Diabetes Cardiovascular History Of: Denies: Cardiac Disorders, Hypertension, Pacemaker/ICD, Myocardial Infarction , Congestive Heart Failure, Atrial Fibrillation, Deep Vein Thrombosis, Bleeding Disorders Respiratory History Of: Reports: Asthma Denies: COPD, Bronchitis, Pneumonia, Pulmonary Embolism GI/ History Of: Denies: Gastroesophageal Reflux, Ulcer, Gastrointestinal Bleed, Gall Bladder Disease, Kidney Stones, Diverticulitis, Renal Disease, Urosepsis Neurological History Of: Denies: CVA, Dementia, Seizures, Migraine Psychological History Of: Reports: Anxiety Denies: Depression, Bipolar Disorder, Schizophrenia, Post Traumatic Stress Disorder Cancer History Of: Denies: Lung Cancer, Colorectal Cancer, Breast Cancer, Prostate Cancer, Cervical Cancer Other History Of: Negative For: HIV, Hepatitis B, Hepatitis C, Anticoagulant Therapy - Surgical History Surgical History: Yes Surgery Procedure, Year, and Place: RIGHT ELBOW RECONSTRUCTION SURGERY 1983,. SLEEP APNEA SURGERY 2010 - Tonsilectomy, uvula, stretching throat. CHOLECYSTECTOMY - 09/10/16 - Family History Known Family History: Positive: Cardiac Disease - two uncles in their 40s, no primary relatives, Hypertension, Diabetes, Other - TIA on paternal side, cancer on both sides, blood clots Family History: FHx of seasonal allergies - both parents - Social History Alcohol Use: None Substance Use Type: None Substance Use Comment - Amount & Last Used: benzo's in the past Smoking Status (MU): Former Smoker Type: Cigarettes Amount Used/How Often: 8 cigs per day previously Length of Time of Smoking/Using Tobacco: mid April 2016 Have You Smoked in the Last Year: No When Did the Patient Quit Smoking/Using Tobacco: quit 4 days ago Household Exposure Type: Cigarettes - Immunization History Most Recent Influenza Vaccination: 2016/2016 Most Recent Tetanus Shot: utd Most Recent Pneumonia Vaccination: 2016 Review of Systems Constitutional: Negative ENT: Nasal Discharge Respiratory: Cough Cardiovascular: Negative Gastrointestinal: Negative All Other Systems Reviewed And Are Negative: Yes Physical Exam Triage Information Reviewed: Yes Appearance: Well-Appearing, No Pain Distress, Well-Nourished Vital Signs: Initial Vital Signs Temp 98.2 F 12/05/16 07:14 Pulse 100 12/05/16 07:14 Resp 16 12/05/16 07:14 BP 155/92 12/05/16 07:14 Pulse Ox 96 12/05/16 07:14 Vital Signs Reviewed: Yes Eyes: Positive: Conjunctiva Clear ENT: Positive: Hearing grossly normal, Pharynx normal, TMs normal Neck: Positive: Supple, Nontender, No Lymphadenopathy Respiratory Exam: Normal Cardiovascular Exam: Normal Abdomen Description: Positive: Soft Musculoskeletal: Positive: No Edema Neurological: Positive: Alert Psychological: Positive: Age Appropriate Behavior Skin: Negative: rashes UC Diagnostic Evaluation - Laboratory O2 Sat by Pulse Oximetry: 96 Respiratory Course/Dx - Differential Dx/Diagnosis Provider Diagnoses: ACUTE URI Discharge - Discharge Plan Condition: Stable Disposition: HOME Patient Education Materials: Upper Respiratory Infection (ED) Referrals: Shad Uriostegui MD [Primary Care Provider] - If Needed
== END 2016-12-05 07:41 | disposition home or self-care (01) ==
LOC: UCEAST 07:04
DX: J06.9 Acute upper respiratory infection, unspecified (principal); Z87.891 Personal history of nicotine dependence; Z88.5 Allergy status to narcotic agent; Z88.1 Allergy status to other antibiotic agents; Z88.0 Allergy status to penicillin
CPT/HCPCS: 99211; G0463

== ENCOUNTER 2016-12-16 13:03 | Emergency (ER) | payer OTHER ==
[2016-12-16 13:56] VITALS: BP 144/94
--- NOTE | 2016-12-16 14:14 | UC ---
Throat Pain/Nasal Casimiro HPI - HPI Summary HPI Summary: complaint of nasal congestion and cough that started approx 3 weeks ago took antibiotic but can't recall which one -he never felt any better since antibiotic productive cough with thick yellow phlegm constant cough - using albuterol inhaler with some relief some sinus pressure in his face and forehead denies fever and chills - History of Current Complaint Chief Complaint: UCRespiratory Stated Complaint: CHEST CONGESTION Time Seen by Provider: 12/16/16 14:06 Hx Obtained From: Patient - Allergies/Home Medications Allergies/Adverse Reactions: Allergies Allergy/AdvReac Type Severity Reaction Status Date / Time Bupropion [From Zyban] Allergy Severe Difficulty Verified 12/16/16 13:57 Breathing Penicillins Allergy Severe Rash Verified 12/16/16 13:57 Cephalexin [From Keflex] Allergy Mild Rash Verified 12/16/16 13:57 Famotidine [From Pepcid AC] Allergy Mild Rash Verified 12/16/16 13:57 Fluticasone Allergy Mild Difficulty Verified 12/16/16 13:57 [From Advair Diskus] Breathing Moxifloxacin [From Avelox] Allergy Mild Hives Verified 12/16/16 13:57 Omeprazole [From Prilosec] Allergy Mild Rash Verified 12/16/16 13:57 Quinolones Allergy Mild Rash Verified 12/16/16 13:57 Salmeterol Allergy Mild Difficulty Verified 12/16/16 13:57 [From Advair Diskus] Breathing Sulfamethoxazole Allergy Mild Rash Verified 12/16/16 13:57 w/Trimethoprim [From Bactrim] Codeine Allergy Unknown Difficulty Verified 12/16/16 13:57 Breathing Doxycycline Allergy Unknown Rash Verified 12/16/16 13:57 Albuterol [From Ventolin] Allergy Difficulty Verified 12/16/16 13:57 Breathing Sertraline [From Zoloft] AdvReac Severe Hallucinati Verified 12/16/16 13:57 ons Buspirone [From Buspar] AdvReac Mild Dizziness Verified 12/16/16 13:57 Escitalopram [From Lexapro] AdvReac Unknown See Comment Verified 12/16/16 13:57 Citalopram [From Celexa] AdvReac See Comment Verified 12/16/16 13:57 PMH/Surg Hx/FS Hx/Imm Hx Previously Healthy: Yes Endocrine History Of: Reports: Thyroid Disease, Hypothyroidism, Dyslipidemia - Not on medications. Denies: Diabetes Cardiovascular History Of: Denies: Cardiac Disorders, Hypertension, Pacemaker/ICD, Myocardial Infarction , Congestive Heart Failure, Atrial Fibrillation, Deep Vein Thrombosis, Bleeding Disorders Respiratory History Of: Reports: Asthma Denies: COPD, Bronchitis, Pneumonia, Pulmonary Embolism GI/ History Of: Denies: Gastroesophageal Reflux, Ulcer, Gastrointestinal Bleed, Gall Bladder Disease, Kidney Stones, Diverticulitis, Renal Disease, Urosepsis Neurological History Of: Denies: CVA, Dementia, Seizures, Migraine Psychological History Of: Reports: Anxiety Denies: Depression, Bipolar Disorder, Schizophrenia, Post Traumatic Stress Disorder Cancer History Of: Denies: Lung Cancer, Colorectal Cancer, Breast Cancer, Prostate Cancer, Cervical Cancer Other History Of: Negative For: HIV, Hepatitis B, Hepatitis C, Anticoagulant Therapy - Surgical History Surgical History: Yes Surgery Procedure, Year, and Place: RIGHT ELBOW RECONSTRUCTION SURGERY 1983,. SLEEP APNEA SURGERY 2010 - Tonsilectomy, uvula, stretching throat. CHOLECYSTECTOMY - 09/10/16 - Family History Known Family History: Positive: Cardiac Disease - two uncles in their 40s, no primary relatives, Hypertension, Diabetes, Other - TIA on paternal side, cancer on both sides, blood clots Family History: FHx of seasonal allergies - both parents - Social History Occupation: Employed Part-time Lives: With Family Alcohol Use: None Substance Use Type: None Substance Use Comment - Amount & Last Used: benzo's in the past Smoking Status (MU): Former Smoker Type: Cigarettes Amount Used/How Often: 8 cigs per day previously Length of Time of Smoking/Using Tobacco: mid April 2016 Have You Smoked in the Last Year: No When Did the Patient Quit Smoking/Using Tobacco: quit 4 days ago Household Exposure Type: Cigarettes - Immunization History Most Recent Influenza Vaccination: 2015/2016 Most Recent Tetanus Shot: utd Most Recent Pneumonia Vaccination: 2016 Review of Systems Constitutional: Negative Skin: Negative Eyes: Negative ENT: Nasal Discharge Respiratory: Cough Cardiovascular: Negative Gastrointestinal: Negative Genitourinary: Negative Motor: Negative Neurovascular: Negative Musculoskeletal: Negative Neurological: Negative Psychological: Negative All Other Systems Reviewed And Are Negative: Yes Physical Exam Triage Information Reviewed: Yes Appearance: No Pain Distress, Well-Nourished Vital Signs: Initial Vital Signs Temp 97.8 F 12/16/16 13:52 Pulse 94 12/16/16 13:52 Resp 20 02/19/17 13:52 BP 144/94 12/16/16 13:52 Pulse Ox 96 12/16/16 13:52 Vital Signs Reviewed: Yes Eyes: Positive: Conjunctiva Clear ENT: Positive: Pharyngeal erythema, Nasal congestion, Nasal drainage, TMs normal , Other: - frontal and maxillary sinus tenderness. Negative: TM bulging Neck: Positive: No Lymphadenopathy, Enlarged Nodes @ Respiratory: Positive: Lungs clear, Normal breath sounds, No respiratory distress Cardiovascular: Positive: RRR, No Murmur, Pulses Normal Abdomen Description: Positive: Nontender, Soft Bowel Sounds: Positive: Present Musculoskeletal: Positive: No Edema Neurological: Positive: Alert Psychological Exam: Normal Skin Exam: Normal Throat Pain/Nasal Course/Dx - Course Course Of Treatment: exam completed. d/t allergies will rx for zithromax- encouraged sinus rinse - Differential Dx/Diagnosis Differential Diagnosis/HQI/PQRI: Pharyngitis, Sinusitis, Tonsillitis, URI Provider Diagnoses: sinusitis Discharge - Discharge Plan Condition: Stable Disposition: HOME Prescriptions: Azithromycin TAB* [Zithromax TAB (Z-SHANT) 250 mg #6 tabs] 2 tab PO .TODAY, THEN 1 DAILY #1 shant Patient Education Materials: Sinusitis (ED) Referrals: Shad Uriostegui MD [Primary Care Provider] - Additional Instructions: SINUSITIS What is Sinusitis? Sinusitis is inflammation or infection of the lining of the sinuses behind the bones in your cheeks or forehead. Sinusitis may occur following a common cold, flu, or other infection; allergies; a tooth infection that spreads to the sinuses; swimming in contaminated water; pressure changes in airplanes at high altitudes; violent sneezing or nose blowing or smoking or breathing other peoples smoke. Symptoms Might Include: Nasal Congestion Sneezing Watery eyes, eye irritation, or eye itching Headaches Pressure in the cheeks Wheezing Trouble smelling Sore throat and coughing may occur Treatment Recommendations: Take medicines as prescribed until completely gone. Drink plenty of fluids. Use saline nose spray to thin the mucous and help the sinuses drain. Use a vaporizer or humidifier. Apply warm compresses to the face or forehead several times a day for 10 to 20 minutes. Call Your Doctor or Return Here IF: Your pain increases during treatment. You develop a high temperature. You develop unusual swelling around the eyes. You have difficulty with your vision. You develop a severe headache, earache, or toothache. You develop increased fever or fever that does not respond to medication such as Tylenol?. You have difficulty breathing or catching your breath. You begin to have any other new symptoms that worry you.
== END 2016-12-16 14:23 | disposition home or self-care (01) ==
LOC: UCEAST 13:03
DX: J02.9 Acute pharyngitis, unspecified (principal); J32.9 Chronic sinusitis, unspecified; J03.90 Acute tonsillitis, unspecified; J06.9 Acute upper respiratory infection, unspecified
CPT/HCPCS: 99212; G0463

== ENCOUNTER 2017-01-12 16:18 | Emergency (ER) | payer OTHER ==
[2017-01-12 16:51] VITALS: BP 142/88
--- NOTE | 2017-01-12 17:19 | UC ---
Respiratory Complaint HPI - History of Current Complaint Chief Complaint: UCRespiratory Stated Complaint: COUGH Time Seen by Provider: 01/12/17 17:01 Hx Obtained From: Patient Onset/Duration: Gradual Onset - pt has been exp URI symps over past week. pover past 2 days he feels his cough is worse, no SOB, coughing up just a little phlegm Timing: Intermittent Episodes Severity Initially: Mild Severity Currently: Mild Character: Cough: Productive Aggravating Factors: Recumbent Position Alleviating Factors: Nothing Associated Signs And Symptoms: Positive: Nasal Congestion. Negative: Dyspnea, Fever, Chills, Hemoptysis, Dizziness - Allergies/Home Medications Allergies/Adverse Reactions: Allergies Allergy/AdvReac Type Severity Reaction Status Date / Time Bupropion [From Zyban] Allergy Severe Difficulty Verified 01/12/17 16:52 Breathing Penicillins Allergy Severe Rash Verified 01/12/17 16:52 Cephalexin [From Keflex] Allergy Mild Rash Verified 01/12/17 16:52 Famotidine [From Pepcid AC] Allergy Mild Rash Verified 01/12/17 16:52 Fluticasone Allergy Mild Difficulty Verified 01/12/17 16:52 [From Advair Diskus] Breathing Moxifloxacin [From Avelox] Allergy Mild Hives Verified 01/12/17 16:52 Omeprazole [From Prilosec] Allergy Mild Rash Verified 01/12/17 16:52 Quinolones Allergy Mild Rash Verified 01/12/17 16:52 Salmeterol Allergy Mild Difficulty Verified 01/12/17 16:52 [From Advair Diskus] Breathing Sulfamethoxazole Allergy Mild Rash Verified 01/12/17 16:52 w/Trimethoprim [From Bactrim] Codeine Allergy Unknown Difficulty Verified 01/12/17 16:52 Breathing Doxycycline Allergy Unknown Rash Verified 01/12/17 16:52 Albuterol [From Ventolin] Allergy Difficulty Verified 01/12/17 16:52 Breathing Sertraline [From Zoloft] AdvReac Severe Hallucinati Verified 01/12/17 16:52 ons Buspirone [From Buspar] AdvReac Mild Dizziness Verified 01/12/17 16:52 Escitalopram [From Lexapro] AdvReac Unknown See Comment Verified 01/12/17 16:52 Citalopram [From Celexa] AdvReac See Comment Verified 01/12/17 16:52 Home Medications: Home Medications Albuterol HFA INHALER* [Ventolin HFA Inhaler*] 2 puff INH TID PRN 01/12/17 [ History Confirmed 01/12/17] PMH/Surg Hx/FS Hx/Imm Hx Previously Healthy: Yes Endocrine History Of: Reports: Thyroid Disease, Hypothyroidism, Dyslipidemia - Not on medications. Denies: Diabetes Cardiovascular History Of: Denies: Cardiac Disorders, Hypertension, Pacemaker/ICD, Myocardial Infarction , Congestive Heart Failure, Atrial Fibrillation, Deep Vein Thrombosis, Bleeding Disorders Respiratory History Of: Reports: Asthma Denies: COPD, Bronchitis, Pneumonia, Pulmonary Embolism GI/ History Of: Denies: Gastroesophageal Reflux, Ulcer, Gastrointestinal Bleed, Gall Bladder Disease, Kidney Stones, Diverticulitis, Renal Disease, Urosepsis Neurological History Of: Denies: CVA, Dementia, Seizures, Migraine Psychological History Of: Reports: Anxiety Denies: Depression, Bipolar Disorder, Schizophrenia, Post Traumatic Stress Disorder Cancer History Of: Denies: Lung Cancer, Colorectal Cancer, Breast Cancer, Prostate Cancer, Cervical Cancer Other History Of: Negative For: HIV, Hepatitis B, Hepatitis C, Anticoagulant Therapy - Surgical History Surgical History: Yes Surgery Procedure, Year, and Place: RIGHT ELBOW RECONSTRUCTION SURGERY 1983,. SLEEP APNEA SURGERY 2010 - Tonsilectomy, uvula, stretching throat. CHOLECYSTECTOMY - 09/10/16 - Family History Known Family History: Positive: Cardiac Disease - two uncles in their 40s, no primary relatives, Hypertension, Diabetes, Other - TIA on paternal side, cancer on both sides, blood clots Family History: FHx of seasonal allergies - both parents - Social History Occupation: Employed Full-time - [employer] Lives: With Family Alcohol Use: None Substance Use Type: None Substance Use Comment - Amount & Last Used: benzo's in the past Smoking Status (MU): Former Smoker Type: Cigarettes Amount Used/How Often: 8 cigs per day previously Length of Time of Smoking/Using Tobacco: mid April 2016 Have You Smoked in the Last Year: No When Did the Patient Quit Smoking/Using Tobacco: quit 4 days ago Household Exposure Type: Cigarettes - Immunization History Most Recent Influenza Vaccination: 2015/2016 Most Recent Tetanus Shot: utd Most Recent Pneumonia Vaccination: 2016 Review of Systems Constitutional: Negative Skin: Negative Eyes: Negative ENT: Negative Respiratory: Cough Cardiovascular: Negative Gastrointestinal: Negative Neurological: Negative Psychological: Negative All Other Systems Reviewed And Are Negative: Yes Physical Exam Triage Information Reviewed: Yes Appearance: Well-Appearing, No Pain Distress, Obese Vital Signs: Initial Vital Signs Temp 97.9 F 01/12/17 16:44 Pulse 69 01/12/17 16:44 Resp 18 01/12/17 16:44 BP 142/88 01/12/17 16:44 Pulse Ox 97 01/12/17 16:44 Vital Signs Reviewed: Yes Eyes: Positive: Conjunctiva Clear Neck exam: Normal Neck: Positive: Supple, Nontender, No Lymphadenopathy Respiratory: Positive: Lungs clear, Other: - no cough. Negative: Rhonchi, Wheezing Cardiovascular Exam: Normal Cardiovascular: Positive: RRR, No Murmur, Pulses Normal Musculoskeletal: Positive: Strength Intact Psychological Exam: Normal Skin Exam: Normal Skin: Negative: rashes UC Diagnostic Evaluation - Laboratory O2 Sat by Pulse Oximetry: 97 Respiratory Course/Dx - Differential Dx/Diagnosis Differential Diagnosis/HQI/PQRI: Asthma, Bronchitis, Influenza, Lower Resp Infection Provider Diagnoses: Upper Respiratory Infection Discharge - Discharge Plan Condition: Good Disposition: HOME Patient Education Materials: Upper Respiratory Infection (ED) Forms: *Gen. Provider Communication Referrals: Shad Uriostegui MD [Primary Care Provider] - 2 Days (for recheck) Additional Instructions: drink plenty of fluids try over the counter cough syrup if needed Return here or to the ER if your symptoms worsen at anytime
--- NOTE | 2017-01-12 18:25 | RAD ---
Indication: Persistent cough. Comparison is made with previous exam dated October 27, 2016. 2 views of the chest including dual energy PA views demonstrate no mediastinal shift. Heart is of normal size and configuration. Lung sandoval demonstrate no pleural fluid, pneumonia or pneumothorax. IMPRESSION: NO ACTIVE CARDIOPULMONARY DISEASE IS IDENTIFIED.
== END 2017-01-12 18:10 | disposition home or self-care (01) ==
LOC: UCEAST 16:18
DX: J06.9 Acute upper respiratory infection, unspecified (principal); E66.9 Obesity, unspecified; Z90.49 Acquired absence of other specified parts of digestive tract; Z88.1 Allergy status to other antibiotic agents; Z88.5 Allergy status to narcotic agent; Z88.0 Allergy status to penicillin; Z88.2 Allergy status to sulfonamides; Z88.8 Allergy status to other drugs, medicaments and biological substances; Z87.891 Personal history of nicotine dependence
CPT/HCPCS: 71020; 99212; G0463

== ENCOUNTER 2017-02-01 08:47 | Emergency (ER) | payer OTHER ==
--- NOTE | 2017-02-01 10:40 | UC ---
Throat Pain/Nasal Casimiro HPI - HPI Summary HPI Summary: started 2 weeks ago-nasal congestion and cough, sore throat saw PCP put on zpack and cough medication and ligia felt better for 2 days after antibiotics and now all his symptoms have returned - finishe zpack 3 days ago cough - productive nasal congestion - frequent headaches sinus tenderness in face and forehead denies ear pain, sore throat, denies N/V/D denies muscle achiness denies fever, wheezing using his albuterol 2x day - History of Current Complaint Chief Complaint: UCRespiratory Stated Complaint: COUGH CONGESTION Time Seen by Provider: 02/01/17 10:38 Hx Obtained From: Patient - Allergies/Home Medications Allergies/Adverse Reactions: Allergies Allergy/AdvReac Type Severity Reaction Status Date / Time Bupropion [From Zyban] Allergy Severe Difficulty Verified 02/01/17 09:14 Breathing Penicillins Allergy Severe Rash Verified 02/01/17 09:14 Cephalexin [From Keflex] Allergy Mild Rash Verified 02/01/17 09:14 Famotidine [From Pepcid AC] Allergy Mild Rash Verified 02/01/17 09:14 Fluticasone Allergy Mild Difficulty Verified 02/01/17 09:14 [From Advair Diskus] Breathing Moxifloxacin [From Avelox] Allergy Mild Hives Verified 02/01/17 09:14 Omeprazole [From Prilosec] Allergy Mild Rash Verified 02/01/17 09:14 Quinolones Allergy Mild Rash Verified 02/01/17 09:14 Salmeterol Allergy Mild Difficulty Verified 02/01/17 09:14 [From Advair Diskus] Breathing Sulfamethoxazole Allergy Mild Rash Verified 02/01/17 09:14 w/Trimethoprim [From Bactrim] Codeine Allergy Unknown Difficulty Verified 02/01/17 09:14 Breathing Doxycycline Allergy Unknown Rash Verified 02/01/17 09:14 Albuterol [From Ventolin] Allergy Difficulty Verified 02/01/17 09:14 Breathing Sertraline [From Zoloft] AdvReac Severe Hallucinati Verified 02/01/17 09:14 ons Buspirone [From Buspar] AdvReac Mild Dizziness Verified 02/01/17 09:14 Escitalopram [From Lexapro] AdvReac Unknown See Comment Verified 02/01/17 09:14 Citalopram [From Celexa] AdvReac See Comment Verified 02/01/17 09:14 Home Medications: Home Medications Oxymetazoline HCl [Afrin Nasal [place]] 0.05 % NA DAILY 02/01/17 [History Confirmed 02/01/17] [id number] W/ APAP [Delsym Cough + Cold D... [id number] mg/10Ml] 1 liq PO DAILY 02/01/17 [History Confirmed 02/01/17] PMH/Surg Hx/FS Hx/Imm Hx Previously Healthy: No - URI Endocrine History Of: Reports: Thyroid Disease - hypo, Hypothyroidism, Dyslipidemia - Not on medications. Denies: Diabetes Cardiovascular History Of: Denies: Cardiac Disorders, Hypertension, Pacemaker/ICD, Myocardial Infarction , Congestive Heart Failure, Atrial Fibrillation, Deep Vein Thrombosis, Bleeding Disorders Respiratory History Of: Reports: Asthma Denies: COPD, Bronchitis, Pneumonia, Pulmonary Embolism GI/ History Of: Denies: Gastroesophageal Reflux, Ulcer, Gastrointestinal Bleed, Gall Bladder Disease, Kidney Stones, Diverticulitis, Renal Disease, Urosepsis Neurological History Of: Denies: CVA, Dementia, Seizures, Migraine Psychological History Of: Reports: Anxiety Denies: Depression, Bipolar Disorder, Schizophrenia, Post Traumatic Stress Disorder Cancer History Of: Denies: Lung Cancer, Colorectal Cancer, Breast Cancer, Prostate Cancer, Cervical Cancer Other History Of: Negative For: HIV, Hepatitis B, Hepatitis C, Anticoagulant Therapy - Surgical History Surgical History: Yes Surgery Procedure, Year, and Place: RIGHT ELBOW RECONSTRUCTION SURGERY 1983,. SLEEP APNEA SURGERY 2010 - Tonsilectomy, uvula, stretching throat. CHOLECYSTECTOMY - 09/10/16 - Family History Known Family History: Positive: Cardiac Disease - two uncles in their 40s, no primary relatives, Hypertension, Diabetes, Other - TIA on paternal side, cancer on both sides, blood clots Family History: FHx of seasonal allergies - both parents - Social History Occupation: Employed Full-time Lives: With Family Alcohol Use: None Substance Use Type: None Substance Use Comment - Amount & Last Used: benzo's in the past Smoking Status (MU): Former Smoker Type: Cigarettes Amount Used/How Often: 1/2 ppd Length of Time of Smoking/Using Tobacco: 15 yrs Have You Smoked in the Last Year: No When Did the Patient Quit Smoking/Using Tobacco: April 2016 Household Exposure Type: Cigarettes - Immunization History Most Recent Influenza Vaccination: Most Recent Tetanus Shot: utd Most Recent Pneumonia Vaccination: 2016 Review of Systems Constitutional: Negative Skin: Negative Eyes: Negative ENT: Nasal Discharge Respiratory: Cough Cardiovascular: Negative Gastrointestinal: Negative Genitourinary: Negative Motor: Negative Neurovascular: Negative Musculoskeletal: Negative Neurological: Headache Psychological: Negative All Other Systems Reviewed And Are Negative: Yes Physical Exam Triage Information Reviewed: Yes Appearance: No Pain Distress, Well-Nourished, Obese Vital Signs: Initial Vital Signs Temp 96.8 F 02/01/17 09:05 Pulse 85 02/01/17 09:05 Resp 14 02/01/17 09:05 BP 160/98 02/01/17 09:05 Pulse Ox 96 02/01/17 09:05 Vital Signs Reviewed: Yes Eyes: Positive: Conjunctiva Clear ENT: Positive: Pharyngeal erythema, Nasal congestion, Nasal drainage, TMs normal , Other: - frontal and maxillary sinus tenderness Neck: Positive: No Lymphadenopathy Respiratory: Positive: Lungs clear, Normal breath sounds, No respiratory distress Cardiovascular: Positive: RRR, No Murmur, Pulses Normal Bowel Sounds: Positive: Present Musculoskeletal: Positive: No Edema Neurological Exam: Normal Psychological Exam: Normal Skin Exam: Normal Throat Pain/Nasal Course/Dx - Differential Dx/Diagnosis Differential Diagnosis/HQI/PQRI: Influenza, Sinusitis, URI Provider Diagnoses: elevated blood pressure without dx of HTN. sinusitis Discharge - Discharge Plan Condition: Stable Disposition: HOME Prescriptions: Clarithromycin TAB* [Biaxin 500 MG TAB*] 500 mg PO BID #20 tab Patient Education Materials: Sinusitis (ED) Referrals: Shad Uriostegui MD [Primary Care Provider] - Additional Instructions: Your blood pressure is elevated. Please contact your primary care provider within 1 day -4 weeks for further evaluation Do not take zofran while taking your antibiotic SINUSITIS What is Sinusitis? Sinusitis is inflammation or infection of the lining of the sinuses behind the bones in your cheeks or forehead. Sinusitis may occur following a common cold, flu, or other infection; allergies; a tooth infection that spreads to the sinuses; swimming in contaminated water; pressure changes in airplanes at high altitudes; violent sneezing or nose blowing or smoking or breathing other peoples smoke. Symptoms Might Include: Nasal Congestion Sneezing Watery eyes, eye irritation, or eye itching Headaches Pressure in the cheeks Wheezing Trouble smelling Sore throat and coughing may occur Treatment Recommendations: Take medicines as prescribed until completely gone. Drink plenty of fluids. Use saline nose spray to thin the mucous and help the sinuses drain. Use a vaporizer or humidifier. Apply warm compresses to the face or forehead several times a day for 10 to 20 minutes. Call Your Doctor or Return Here IF: Your pain increases during treatment. You develop a high temperature. You develop unusual swelling around the eyes. You have difficulty with your vision. You develop a severe headache, earache, or toothache. You develop increased fever or fever that does not respond to medication such as Tylenol?. You have difficulty breathing or catching your breath. You begin to have any other new symptoms that worry you.
[2017-02-01 11:06] VITALS: BP 146/97
== END 2017-02-01 11:11 | disposition home or self-care (01) ==
LOC: UCEAST 08:47
DX: J32.9 Chronic sinusitis, unspecified (principal); R03.0 Elevated blood-pressure reading, without diagnosis of hypertension; Z87.891 Personal history of nicotine dependence; E03.9 Hypothyroidism, unspecified; Z88.0 Allergy status to penicillin; Z88.5 Allergy status to narcotic agent
CPT/HCPCS: 99212; G0463

== ENCOUNTER 2017-02-16 21:46 | Emergency (ER) | payer OTHER ==
[2017-02-16 22:48] VITALS: BP 136/96
--- NOTE | 2017-02-16 23:23 | UC ---
Respiratory Complaint HPI - HPI Summary HPI Summary: The patient comes in today for: 1. Cough Onset: "a couple weeks." Palliative/provocative: Laying down makes it better. Quality: Irritating. Region: Chest Severity: 0/10 Time: cough comes and goes. Associated symptoms: Productive: Clear to yellow. Rhinitis: Clear. Vomiting: Today, he vomited 3 times. No blood or coffee ground material. Diarrhea: He had been seen for this previously by his primary care provider. He has stool studies ordered. He only had two stools today. Imbalance: He feels this also. Chest pain: only with cough. Dyspnea: None. Inhalers: albuterol regularly recently. * - History of Current Complaint Chief Complaint: UCRespiratory Stated Complaint: COUGHING,VOMITING Time Seen by Provider: 02/16/17 23:17 Hx Obtained From: Patient - Allergies/Home Medications Allergies/Adverse Reactions: Allergies Allergy/AdvReac Type Severity Reaction Status Date / Time Bupropion [From Zyban] Allergy Severe Difficulty Verified 02/16/17 22:50 Breathing Penicillins Allergy Severe Rash Verified 02/16/17 22:50 Cephalexin [From Keflex] Allergy Mild Rash Verified 02/16/17 22:50 Famotidine [From Pepcid AC] Allergy Mild Rash Verified 02/16/17 22:50 Fluticasone Allergy Mild Difficulty Verified 02/16/17 22:50 [From Advair Diskus] Breathing Moxifloxacin [From Avelox] Allergy Mild Hives Verified 02/16/17 22:50 Omeprazole [From Prilosec] Allergy Mild Rash Verified 02/16/17 22:50 Quinolones Allergy Mild Rash Verified 02/16/17 22:50 Salmeterol Allergy Mild Difficulty Verified 02/16/17 22:50 [From Advair Diskus] Breathing Sulfamethoxazole Allergy Mild Rash Verified 02/16/17 22:50 w/Trimethoprim [From Bactrim] Codeine Allergy Unknown Difficulty Verified 02/16/17 22:50 Breathing Doxycycline Allergy Unknown Rash Verified 02/16/17 22:50 Albuterol [From Ventolin] Allergy Difficulty Verified 02/16/17 22:50 Breathing Sertraline [From Zoloft] AdvReac Severe Hallucinati Verified 02/16/17 22:50 ons Buspirone [From Buspar] AdvReac Mild Dizziness Verified 02/16/17 22:50 Escitalopram [From Lexapro] AdvReac Unknown See Comment Verified 02/16/17 22:50 Citalopram [From Celexa] AdvReac See Comment Verified 02/16/17 22:50 Home Medications: Home Medications LoraTADine TAB(NF) [Claritin 10 MG TAB(NF)] 10 mg PO DAILY 02/16/17 [History Confirmed 02/16/17] Loratadine [Claritin 10 MG CAP] 10 mg PO 02/16/17 [History] PMH/Surg Hx/FS Hx/Imm Hx Previously Healthy: No Endocrine History Of: Reports: Thyroid Disease - hypo, Hypothyroidism, Dyslipidemia - Not on medications. Denies: Diabetes Cardiovascular History Of: Denies: Cardiac Disorders, Hypertension, Pacemaker/ICD, Myocardial Infarction , Congestive Heart Failure, Atrial Fibrillation, Deep Vein Thrombosis, Bleeding Disorders Respiratory History Of: Reports: Asthma Denies: COPD, Bronchitis, Pneumonia, Pulmonary Embolism GI/ History Of: Denies: Gastroesophageal Reflux, Ulcer, Gastrointestinal Bleed, Gall Bladder Disease, Kidney Stones, Diverticulitis, Renal Disease, Urosepsis Neurological History Of: Denies: CVA, Dementia, Seizures, Migraine Psychological History Of: Reports: Anxiety Denies: Depression, Bipolar Disorder, Schizophrenia, Post Traumatic Stress Disorder Cancer History Of: Denies: Lung Cancer, Colorectal Cancer, Breast Cancer, Prostate Cancer, Cervical Cancer Other History Of: Negative For: HIV, Hepatitis B, Hepatitis C, Anticoagulant Therapy - Surgical History Surgical History: Yes Surgery Procedure, Year, and Place: RIGHT ELBOW RECONSTRUCTION SURGERY 1983,. SLEEP APNEA SURGERY 2010 - Tonsilectomy, uvula, stretching throat. CHOLECYSTECTOMY - 09/10/16. cicumcision with biopsy - Family History Known Family History: Positive: Cardiac Disease - two uncles in their 40s, no primary relatives, Hypertension, Diabetes, Other - TIA on paternal side, cancer on both sides, blood clots Family History: FHx of seasonal allergies - both parents - Social History Occupation: Employed Full-time Alcohol Use: Rare Substance Use Type: None Substance Use Comment - Amount & Last Used: benzo's in the past Smoking Status (MU): Former Smoker Type: Cigarettes Amount Used/How Often: 1/2 ppd Length of Time of Smoking/Using Tobacco: 15 yrs Have You Smoked in the Last Year: No When Did the Patient Quit Smoking/Using Tobacco: April 2016 Household Exposure Type: Cigarettes - Immunization History Most Recent Influenza Vaccination: fall 2015 Most Recent Tetanus Shot: utd Most Recent Pneumonia Vaccination: fall 2015 Review of Systems Constitutional: Negative Skin: Negative Eyes: Negative ENT: Nasal Discharge Respiratory: Cough Cardiovascular: Negative Gastrointestinal: Negative, Vomiting, Diarrhea Genitourinary: Negative All Other Systems Reviewed And Are Negative: Yes Physical Exam Triage Information Reviewed: Yes Appearance: Well-Appearing, No Pain Distress, Well-Nourished Vital Signs: Initial Vital Signs Temp 98.2 F 02/16/17 22:36 Pulse 71 02/16/17 22:36 Resp 18 02/16/17 22:36 BP 136/96 02/16/17 22:36 Pulse Ox 97 02/16/17 22:36 Vital Signs Reviewed: Yes Eyes: Positive: Conjunctiva Clear. Negative: Discharge ENT: Positive: Hearing grossly normal. Negative: Pharyngeal erythema, Nasal congestion, Nasal drainage, TM bulging, TM dull, TM red, Tonsillar swelling, Tonsillar exudate Dental: Negative: Gross Decay/Caries @, Dental Fracture @ Neck: Positive: Supple, Nontender, No Lymphadenopathy. Negative: Nuchal Rigidity Respiratory: Positive: Chest non-tender, Lungs clear, No respiratory distress, No accessory muscle use. Negative: Crackles, Wheezing Cardiovascular: Positive: RRR, No Murmur Abdomen Description: Positive: Nontender, No Organomegaly, Soft. Negative: Distended, Guarding Musculoskeletal: Positive: Strength Intact, ROM Intact Neurological: Positive: Alert, Muscle Tone Normal Psychological: Positive: Age Appropriate Behavior, Consolable Skin: Negative: rashes, breakdown UC Diagnostic Evaluation - Laboratory O2 Sat by Pulse Oximetry: 97 Respiratory Course/Dx - Differential Dx/Diagnosis Differential Diagnosis/HQI/PQRI: Asthma, Bronchitis, Laryngitis Provider Diagnoses: Upper respiratory infection. Bronchitis. Asthma Discharge - Discharge Plan Condition: Stable Disposition: HOME Patient Education Materials: Acute Bronchitis (ED), Asthma (ED) Forms: *Work Release Referrals: Shad Uriostegui MD [Primary Care Provider] -
[2017-02-16] MEDS ORDERED: Azithromycin TAB* 250 MG PO ONE (23:34)
== END 2017-02-16 23:45 | disposition home or self-care (01) ==
LOC: UCEAST 21:46
DX: J06.9 Acute upper respiratory infection, unspecified (principal); J45.909 Unspecified asthma, uncomplicated; Z88.1 Allergy status to other antibiotic agents; Z88.0 Allergy status to penicillin; Z88.2 Allergy status to sulfonamides; Z88.8 Allergy status to other drugs, medicaments and biological substances; F41.9 Anxiety disorder, unspecified; Z90.49 Acquired absence of other specified parts of digestive tract; Z87.891 Personal history of nicotine dependence
CPT/HCPCS: 99212; A9270-GY; G0463

== ENCOUNTER 2017-05-18 18:36 | Emergency (ER) | payer OTHER ==
[2017-05-18 18:49] VITALS: BP 147/93
[2017-05-18] MEDS ORDERED: Azithromycin TAB* 250 MG PO ONE (19:14)
--- NOTE | 2017-05-18 19:15 | UC ---
Respiratory Complaint HPI - HPI Summary HPI Summary: 36 yo male with cough x 4-5 days wheezing using rescue inhaler no f/c low energy - History of Current Complaint Chief Complaint: UCRespiratory Stated Complaint: COUGH Time Seen by Provider: 05/18/17 19:00 Hx Obtained From: Patient Onset/Duration: Gradual Onset, Lasting Days Timing: Constant Severity Initially: Mild Severity Currently: Moderate Pain Intensity: 2 Pain Scale Used: 0-10 Numeric Character: Cough: Nonproductive Aggravating Factors: Exertion, Deep Breaths Alleviating Factors: Bronchodilator Associated Signs And Symptoms: Positive: Dizziness Related History: Similar Episode/Dx as: - bronchitis - Allergies/Home Medications Allergies/Adverse Reactions: Allergies Allergy/AdvReac Type Severity Reaction Status Date / Time Bupropion [From Zyban] Allergy Severe Difficulty Verified 05/18/17 18:50 Breathing Penicillins Allergy Severe Rash Verified 05/18/17 18:50 Cephalexin [From Keflex] Allergy Mild Rash Verified 05/18/17 18:50 Famotidine [From Pepcid AC] Allergy Mild Rash Verified 05/18/17 18:50 Fluticasone Allergy Mild Difficulty Verified 05/18/17 18:50 [From Advair Diskus] Breathing Moxifloxacin [From Avelox] Allergy Mild Hives Verified 05/18/17 18:50 Omeprazole [From Prilosec] Allergy Mild Rash Verified 05/18/17 18:50 Quinolones Allergy Mild Rash Verified 05/18/17 18:50 Salmeterol Allergy Mild Difficulty Verified 05/18/17 18:50 [From Advair Diskus] Breathing Sulfamethoxazole Allergy Mild Rash Verified 05/18/17 18:50 w/Trimethoprim [From Bactrim] Codeine Allergy Unknown Difficulty Verified 05/18/17 18:50 Breathing Doxycycline Allergy Unknown Rash Verified 05/18/17 18:50 Albuterol [From Ventolin] Allergy Difficulty Verified 05/18/17 18:50 Breathing Sertraline [From Zoloft] AdvReac Severe Hallucinati Verified 05/18/17 18:50 ons Buspirone [From Buspar] AdvReac Mild Dizziness Verified 05/18/17 18:50 Escitalopram [From Lexapro] AdvReac Unknown See Comment Verified 05/18/17 18:50 Citalopram [From Celexa] AdvReac See Comment Verified 05/18/17 18:50 Home Medications: Home Medications Atorvastatin* [Lipitor 40 MG*] 05/18/17 [History] PMH/Surg Hx/FS Hx/Imm Hx Endocrine History: Dyslipidemia Respiratory History: Asthma Psychological History: Anxiety Other History Of: Negative For: HIV, Hepatitis B, Hepatitis C, Anticoagulant Therapy - Surgical History Surgical History: Yes Surgery Procedure, Year, and Place: RIGHT ELBOW RECONSTRUCTION SURGERY 1983,. SLEEP APNEA SURGERY 2010 - Tonsilectomy, uvula, stretching throat. CHOLECYSTECTOMY - 09/10/16. cicumcision with biopsy - Family History Known Family History: Positive: Cardiac Disease - two uncles in their 40s, no primary relatives, Hypertension, Diabetes, Other - TIA on paternal side, cancer on both sides, blood clots Family History: FHx of seasonal allergies - both parents - Social History Alcohol Use: Rare Substance Use Type: None Substance Use Comment - Amount & Last Used: benzo's in the past Smoking Status (MU): Former Smoker Type: Cigarettes Amount Used/How Often: 1/2 ppd Length of Time of Smoking/Using Tobacco: 15 yrs Have You Smoked in the Last Year: No When Did the Patient Quit Smoking/Using Tobacco: April 2016 Household Exposure Type: Cigarettes - Immunization History Most Recent Influenza Vaccination: fall 2015 Most Recent Tetanus Shot: utd Most Recent Pneumonia Vaccination: fall 2015 Review of Systems Constitutional: Fatigue Skin: Negative Eyes: Negative ENT: Negative Respiratory: Cough, Other - wheezing Cardiovascular: Negative Gastrointestinal: Other - anorexia Genitourinary: Negative Motor: Negative Neurovascular: Negative Musculoskeletal: Negative Neurological: Negative Psychological: Negative All Other Systems Reviewed And Are Negative: Yes Physical Exam Triage Information Reviewed: Yes Appearance: Well-Appearing, No Pain Distress, Well-Nourished Vital Signs: Initial Vital Signs Temp 98.6 F 05/18/17 18:46 Pulse 95 05/18/17 18:46 Resp 12 05/18/17 18:46 BP 147/93 05/18/17 18:46 Pulse Ox 99 05/18/17 18:46 Eyes: Positive: Conjunctiva Clear ENT: Positive: Hearing grossly normal. Negative: Nasal congestion, Nasal drainage, Trismus, Muffled/hoarse voice Neck: Positive: Supple, Nontender Respiratory: Positive: No respiratory distress, No accessory muscle use, Wheezing - with forced expiration Cardiovascular: Positive: RRR, No Murmur Bowel Sounds: Positive: Present Musculoskeletal: Positive: ROM Intact, No Edema Neurological Exam: Normal Neurological: Positive: Alert Psychological Exam: Normal UC Diagnostic Evaluation - Laboratory O2 Sat by Pulse Oximetry: 99 - normal/not hypoxic Respiratory Course/Dx - Differential Dx/Diagnosis Provider Diagnoses: bronchospasm/bronchitis Discharge - Discharge Plan Condition: Stable Disposition: HOME Prescriptions: Azithromycin TAB* [Zithromax TAB*] 250 mg PO DAILY #6 tab Patient Education Materials: Acute Bronchitis (ED) Referrals: Shad Uriostegui MD [Primary Care Provider] - 3 Days
== END 2017-05-18 19:20 | disposition home or self-care (01) ==
LOC: UCEAST 18:36
DX: J20.9 Acute bronchitis, unspecified (principal); E78.5 Hyperlipidemia, unspecified; Z72.0 Tobacco use
CPT/HCPCS: 99212; A9270-GY; G0463

== ENCOUNTER 2017-05-31 19:15 | Emergency (ER) | payer OTHER ==
[2017-05-31 19:20] VITALS: BP 152/94
--- NOTE | 2017-05-31 20:05 | UC ---
Respiratory Complaint HPI - HPI Summary HPI Summary: Mild chest congestion with ST starting 3 days ago. Feels tightness and wheezing in the morning, but feels better after using inhaler. Denies fever, chest pain, or nasal congestion. Pt has hx of tachycardia, for which he has seen director integrated and no major problems found. Pt denies CP, palpitations, or trouble breathing - History of Current Complaint Chief Complaint: UCRespiratory Stated Complaint: CHEST CONGESTION Time Seen by Provider: 05/31/17 19:44 Hx Obtained From: Patient Onset/Duration: Gradual Onset, Lasting Days Timing: Constant Severity Initially: Mild Severity Currently: Mild Character: Cough: Productive Aggravating Factors: Deep Breaths, Recumbent Position Alleviating Factors: Bronchodilator Associated Signs And Symptoms: Positive: Wheezing. Negative: Dyspnea, Fever, Chills, URI, Nasal Congestion - Allergies/Home Medications Allergies/Adverse Reactions: Allergies Allergy/AdvReac Type Severity Reaction Status Date / Time Bupropion [From Zyban] Allergy Severe Difficulty Verified 05/31/17 19:20 Breathing Penicillins Allergy Severe Rash Verified 05/31/17 19:20 Cephalexin [From Keflex] Allergy Mild Rash Verified 05/31/17 19:20 Famotidine [From Pepcid AC] Allergy Mild Rash Verified 05/31/17 19:20 Fluticasone Allergy Mild Difficulty Verified 05/31/17 19:20 [From Advair Diskus] Breathing Moxifloxacin [From Avelox] Allergy Mild Hives Verified 05/31/17 19:20 Omeprazole [From Prilosec] Allergy Mild Rash Verified 05/31/17 19:20 Quinolones Allergy Mild Rash Verified 05/31/17 19:20 Salmeterol Allergy Mild Difficulty Verified 05/31/17 19:20 [From Advair Diskus] Breathing Sulfamethoxazole Allergy Mild Rash Verified 05/31/17 19:20 w/Trimethoprim [From Bactrim] Codeine Allergy Unknown Difficulty Verified 05/31/17 19:20 Breathing Doxycycline Allergy Unknown Rash Verified 05/31/17 19:20 Albuterol [From Ventolin] Allergy Difficulty Verified 05/31/17 19:20 Breathing Sertraline [From Zoloft] AdvReac Severe Hallucinati Verified 05/31/17 19:20 ons Buspirone [From Buspar] AdvReac Mild Dizziness Verified 05/31/17 19:20 Escitalopram [From Lexapro] AdvReac Unknown See Comment Verified 05/31/17 19:20 Citalopram [From Celexa] AdvReac See Comment Verified 05/31/17 19:20 PMH/Surg Hx/FS Hx/Imm Hx Cardiovascular History: Hypertension Other Cardiovascular History: hx tachycardia Respiratory History: Asthma Psychological History: Anxiety Other History Of: Negative For: HIV, Hepatitis B, Hepatitis C, Anticoagulant Therapy - Surgical History Surgical History: Yes Surgery Procedure, Year, and Place: RIGHT ELBOW RECONSTRUCTION SURGERY 1983,. SLEEP APNEA SURGERY 2010 - Tonsilectomy, uvula, stretching throat. CHOLECYSTECTOMY - 09/10/16. cicumcision with biopsy - Family History Known Family History: Positive: Cardiac Disease - two uncles in their 40s, no primary relatives, Hypertension, Diabetes, Other - TIA on paternal side, cancer on both sides, blood clots Family History: FHx of seasonal allergies - both parents - Social History Alcohol Use: Rare Substance Use Type: None Substance Use Comment - Amount & Last Used: benzo's in the past Smoking Status (MU): Former Smoker Type: Cigarettes Amount Used/How Often: 1/2 ppd Length of Time of Smoking/Using Tobacco: 15 yrs Have You Smoked in the Last Year: No When Did the Patient Quit Smoking/Using Tobacco: April 2016 Household Exposure Type: Cigarettes - Immunization History Most Recent Influenza Vaccination: fall 2015 Most Recent Tetanus Shot: utd Most Recent Pneumonia Vaccination: fall 2015 Review of Systems Constitutional: Negative Skin: Negative Eyes: Negative ENT: Sore Throat Respiratory: Cough Cardiovascular: Negative Gastrointestinal: Negative Genitourinary: Negative Motor: Negative Neurovascular: Negative Musculoskeletal: Negative Neurological: Negative Psychological: Negative All Other Systems Reviewed And Are Negative: Yes Physical Exam Triage Information Reviewed: Yes Appearance: Well-Appearing, No Pain Distress, Well-Nourished Vital Signs: Initial Vital Signs Temp 96.3 F 05/31/17 19:17 Pulse 120 05/31/17 19:17 Resp 18 05/31/17 19:17 BP 152/94 05/31/17 19:17 Pulse Ox 98 05/31/17 19:17 Vital Signs Reviewed: Yes Eye Exam: Normal Eyes: Positive: Conjunctiva Clear ENT Exam: Normal ENT: Positive: Normal ENT inspection, Hearing grossly normal, Pharynx normal, TMs normal. Negative: Tonsillar swelling Dental Exam: Normal Neck exam: Normal Neck: Positive: Supple, Nontender, No Lymphadenopathy Respiratory Exam: Normal Respiratory: Positive: Chest non-tender, Lungs clear, Normal breath sounds, No respiratory distress, No accessory muscle use Cardiovascular Exam: Other - HR low 100s on exam Cardiovascular: Positive: No Murmur, Tachycardia Musculoskeletal Exam: Normal Neurological Exam: Normal Neurological: Positive: Alert Psychological Exam: Normal Skin Exam: Normal UC Diagnostic Evaluation - Laboratory O2 Sat by Pulse Oximetry: 98 Respiratory Course/Dx - Differential Dx/Diagnosis Provider Diagnoses: URI, likely viral. tachycardia Discharge - Discharge Plan Condition: Stable Disposition: HOME Patient Education Materials: Upper Respiratory Infection (ED) Referrals: Shad Uriostegui MD [Primary Care Provider] - Additional Instructions: Keep using your inhaler as needed for coughing and wheezing. Your symptoms are all within the realm of normal for your -- it will probably take another week or more for you to go back to normal.
== END 2017-05-31 20:07 | disposition home or self-care (01) ==
LOC: UCEAST 19:15
DX: J06.9 Acute upper respiratory infection, unspecified (principal); R00.0 Tachycardia, unspecified; I10 Essential (primary) hypertension; J45.909 Unspecified asthma, uncomplicated; F41.9 Anxiety disorder, unspecified; Z90.49 Acquired absence of other specified parts of digestive tract; Z88.1 Allergy status to other antibiotic agents; Z88.0 Allergy status to penicillin; Z88.2 Allergy status to sulfonamides; Z88.8 Allergy status to other drugs, medicaments and biological substances; Z87.891 Personal history of nicotine dependence
CPT/HCPCS: 99212; G0463

== ENCOUNTER 2017-06-01 22:40 | Emergency (ER) | payer OTHER ==
[2017-06-01 23:44] LABS: Hematocrit 44 % (42-52); Hemoglobin 15.1 g/dl (14.0-18.0); Mean Corpuscular HGB Conc 34 g/dl (31-36); Mean Corpuscular Hemoglobin 29 pg (27-31); Mean Corpuscular Volume 84 fL (80-94); Mean Platelet Volume 8 um3 (7.4-10.4); Red Blood Count 5.23 10^6/ul (4.0-5.4); Red Cell Distribution Width 14 % (10.5-15); White Blood Count 10.8 10^3/ul (3.5-10.8)
[2017-06-02 00:01] LABS: Albumin 3.9 g/dL (3.2-5.2); BUN/Creatinine Ratio 18.9 (8-20); Calcium 9.4 mg/dL (8.6-10.3); EGFR African American 152.2 (>60); EGFR Non-African American 118.4 (>60); Globulin 3.1 g/dL (2-4); Total Bilirubin 0.4 mg/dL (0.2-1.0)
--- NOTE | 2017-06-02 04:12 | ED ---
I, Oh,Kathryn, scribed for Peggy Baltazar MD on 06/01/17 at 2317 . HPI Chest Pain - HPI Summary HPI Summary: This 36 y/o male presents to ED for acute onset of CP since 0 PM. Pain radiates to right jaws. ASA and NTG given en route [employer] as EMS, which alleviate pain. PMH xincludes HLD, GERD, anxiety, and asthma, which is controlled with inhaler. FHx is positive for HTN. Former smoker, nondrinker. Plan of care involving bloodwork with trop is discussed with pt, and he is agreeable. Pt is requesting his anxiety medication at this moment. - History of Current Complaint Chief Complaint: EDChestPainROMI Time Seen by Provider: 06/01/17 22:42 Hx Obtained From: Patient, Medical Records Onset/Duration: Started Hours Ago, Atraumatic, Still Present Timing: Constant Pain Intensity: 6 Pain Scale Used: 0-10 Numeric Chest Pain Location: Diffuse Chest Pain Radiates: Yes Chest Pain Radiates To:: Jaw Character: Dull/Aching Aggravating Factor(s): Nothing Alleviating Factor(s): NTG 123, EMS Tx - ASA and NTG Associated Signs and Symptoms: Positive: Chest Pain, Shortness of Breath. Negative: Fever - Allergy/Home Medications Allergies/Adverse Reactions: Allergies Allergy/AdvReac Type Severity Reaction Status Date / Time Bupropion [From Zyban] Allergy Severe Difficulty Verified 05/31/17 19:20 Breathing Penicillins Allergy Severe Rash Verified 05/31/17 19:20 Cephalexin [From Keflex] Allergy Mild Rash Verified 05/31/17 19:20 Famotidine [From Pepcid AC] Allergy Mild Rash Verified 05/31/17 19:20 Fluticasone Allergy Mild Difficulty Verified 05/31/17 19:20 [From Advair Diskus] Breathing Moxifloxacin [From Avelox] Allergy Mild Hives Verified 05/31/17 19:20 Omeprazole [From Prilosec] Allergy Mild Rash Verified 05/31/17 19:20 Quinolones Allergy Mild Rash Verified 05/31/17 19:20 Salmeterol Allergy Mild Difficulty Verified 05/31/17 19:20 [From Advair Diskus] Breathing Sulfamethoxazole Allergy Mild Rash Verified 05/31/17 19:20 w/Trimethoprim [From Bactrim] Codeine Allergy Unknown Difficulty Verified 05/31/17 19:20 Breathing Doxycycline Allergy Unknown Rash Verified 05/31/17 19:20 Albuterol [From Ventolin] Allergy Difficulty Verified 05/31/17 19:20 Breathing Sertraline [From Zoloft] AdvReac Severe Hallucinati Verified 05/31/17 19:20 ons Buspirone [From Buspar] AdvReac Mild Dizziness Verified 05/31/17 19:20 Escitalopram [From Lexapro] AdvReac Unknown See Comment Verified 05/31/17 19:20 Citalopram [From Celexa] AdvReac See Comment Verified 05/31/17 19:20 PMH/Surg Hx/FS Hx/Imm Hx Endocrine/Hematology History: Reports: Hx Thyroid Disease - hypothyroid Denies: Hx Anticoagulant Therapy, Hx Diabetes Cardiovascular History: Denies: Hx Congestive Heart Failure, Hx Deep Vein Thrombosis, Hx Hypertension , Hx Myocardial Infarction, Hx Pacemaker/ICD Respiratory History: Reports: Hx Asthma, Hx Sleep Apnea - that was cured via surgery, Other Respiratory Problems/Disorders - pneumonia 2x Denies: Hx Chronic Obstructive Pulmonary Disease (COPD), Hx Lung Cancer, Hx Pneumonia, Hx Pulmonary Embolism GI History: Denies: Hx Gall Bladder Disease, Hx Gastrointestinal Bleed, Hx Ulcer, Hx Urosepsis History: Denies: Hx Kidney Stones, Hx Renal Disease Sensory History: Denies: Hx Contacts or Glasses, Hx Hearing Aid Opthamlomology History: Denies: Hx Contacts or Glasses Neurological History: Denies: Hx Dementia, Hx Migraine, Hx Seizures Psychiatric History: Reports: Hx Anxiety, Hx Panic Disorder - TO TAKE MEDICATION PRIOR TO MRI Denies: Hx Depression, Hx Schizophrenia, Hx Bipolar Disorder, Hx Substance Abuse - Surgical History Surgery Procedure, Year, and Place: RIGHT ELBOW RECONSTRUCTION SURGERY 1983,. SLEEP APNEA SURGERY 2010 - Tonsilectomy, uvula, stretching throat. CHOLECYSTECTOMY - 09/10/16. cicumcision with biopsy - Immunization History Date of Tetanus Vaccine: unknown Date of Influenza Vaccine: 07/12/15 Infectious Disease History: No Infectious Disease History: Denies: Hx Clostridium Difficile, Hx Hepatitis, Hx Human Immunodeficiency Virus (HIV), Hx of Known/Suspected MRSA, Hx Shingles, Hx Tuberculosis, Hx Known/ Suspected VRE, Hx Known/Suspected VRSA, History Other Infectious Disease, Traveled Outside the [place] in Last 30 Days - Family History Known Family History: Positive: Cardiac Disease - two uncles in their 40s, no primary relatives, Hypertension, Diabetes, Other - TIA on paternal side, cancer on both sides, blood clots Family History: FHx of seasonal allergies - both parents - Social History Alcohol Use: None Hx Substance Use: Yes Substance Use Type: Reports: None Substance Use Comment - Amount & Last Used: benzo's in the past Hx Tobacco Use: Yes Smoking Status (MU): Former Smoker Type: Cigarettes Amount Used/How Often: 1/2 ppd Length of Time of Smoking/Using Tobacco: 15 yrs Have You Smoked in the Last Year: No Review of Systems Negative: Fever Positive: Chest Pain Negative: Shortness Of Breath All Other Systems Reviewed And Are Negative: Yes Physical Exam Triage Information Reviewed: Yes Vital Signs On Initial Exam: Initial Vitals Temp Pulse Resp BP Pulse Ox 98.3 F 94 16 132/78 98 06/01/17 22:44 06/01/17 22:44 06/01/17 22:44 06/01/17 22:44 06/01/17 22:44 Vital Signs Reviewed: Yes Appearance: Positive: Well-Appearing, No Pain Distress Skin: Positive: Warm, Skin Color Reflects Adequate Perfusion, Dry Head/Face: Positive: Normal Head/Face Inspection Eyes: Positive: EOMI, GABINO Neck: Positive: Supple, Nontender Respiratory/Lung Sounds: Positive: Clear to Auscultation, Breath Sounds Present Cardiovascular: Positive: RRR, Pulses are Symmetrical in both Upper and Lower Extremities. Negative: Murmur, Rub, Other - gallops Abdomen Description: Positive: Other: - RUQ tenderness Musculoskeletal: Positive: Strength/ROM Intact Neurological: Positive: Sensory/Motor Intact, Alert, Oriented to Person Place, Time Psychiatric: Positive: Affect/Mood Appropriate AVPU Assessment: Alert - Yolande Coma Scale Coma Scale Total: 15 Diagnostics - Vital Signs Vital Signs Temp Pulse Resp BP Pulse Ox 06/01/17 22:49 98.3 F 98 18 132/78 99 06/01/17 22:44 98.3 F 94 16 132/78 98 - Laboratory Lab Results: Lab Results 06/01/17 06/01/17 06/01/17 Range/Units 23:35 23:35 23:35 WBC 10.8 (3.5-10.8) 10^3/ul RBC 5.23 (4.0-5.4) 10^6/ul Hgb 15.1 (14.0-18.0) g/dl Hct 44 (42-52) % MCV 84 (80-94) fL MCH 29 (27-31) pg MCHC 34 (31-36) g/dl RDW 14 (10.5-15) % Plt Count 222 (150-450) 10^3/ul MPV 8 (7.4-10.4) um3 Neut % (Auto) 56.9 (38-83) % Lymph % (Auto) 28.8 (25-47) % Mcclain % (Auto) 9.2 H (1-9) % Eos % (Auto) 4.6 (0-6) % Baso % (Auto) 0.5 (0-2) % Absolute Neuts (auto) 6.1 (1.5-7.7) 10^3/ul Absolute Lymphs (auto) 3.1 (1.0-4.8) 10^3/ul Absolute Monos (auto) 1.0 H (0-0.8) 10^3/ul Absolute Eos (auto) 0.5 (0-0.6) 10^3/ul Absolute Basos (auto) 0.1 (0-0.2) 10^3/ul Absolute Nucleated RBC 0.01 10^3/ul Nucleated RBC % 0.1 Sodium 136 (133-145) mmol/L Potassium 4.0 (3.5-5.0) mmol/L Chloride 105 (101-111) mmol/L Carbon Dioxide 25 (22-32) mmol/L Anion Gap 6 (2-11) mmol/L BUN 14 (6-24) mg/dL Creatinine 0.74 (0.67-1.17) mg/dL Est GFR ( Amer) 152.2 (>60) Est GFR (Non-Af Amer) 118.4 (>60) BUN/Creatinine Ratio 18.9 (8-20) Glucose 108 H (70-100) mg/dL Lactic Acid 1.3 (0.5-2.0) mmol/L Calcium 9.4 (8.6-10.3) mg/dL Total Bilirubin 0.40 (0.2-1.0) mg/dL AST 36 (13-39) U/L ALT 28 (7-52) U/L Alkaline Phosphatase 83 (34-104) U/L Troponin I 0.00 (<0.04) ng/mL Total Protein 7.0 (6.4-8.9) g/dL Albumin 3.9 (3.2-5.2) g/dL Globulin 3.1 (2-4) g/dL Albumin/Globulin Ratio 1.3 (1-3) 06/02/17 Range/Units 03:08 WBC (3.5-10.8) 10^3/ul RBC (4.0-5.4) 10^6/ul Hgb (14.0-18.0) g/dl Hct (42-52) % MCV (80-94) fL MCH (27-31) pg MCHC (31-36) g/dl RDW (10.5-15) % Plt Count (150-450) 10^3/ul MPV (7.4-10.4) um3 Neut % (Auto) (38-83) % Lymph % (Auto) (25-47) % Mcclain % (Auto) (1-9) % Eos % (Auto) (0-6) % Baso % (Auto) (0-2) % Absolute Neuts (auto) (1.5-7.7) 10^3/ul Absolute Lymphs (auto) (1.0-4.8) 10^3/ul Absolute Monos (auto) (0-0.8) 10^3/ul Absolute Eos (auto) (0-0.6) 10^3/ul Absolute Basos (auto) (0-0.2) 10^3/ul Absolute Nucleated RBC 10^3/ul Nucleated RBC % Sodium (133-145) mmol/L Potassium (3.5-5.0) mmol/L Chloride (101-111) mmol/L Carbon Dioxide (22-32) mmol/L Anion Gap (2-11) mmol/L BUN (6-24) mg/dL Creatinine (0.67-1.17) mg/dL Est GFR ( Amer) (>60) Est GFR (Non-Af Amer) (>60) BUN/Creatinine Ratio (8-20) Glucose (70-100) mg/dL Lactic Acid (0.5-2.0) mmol/L Calcium (8.6-10.3) mg/dL Total Bilirubin (0.2-1.0) mg/dL AST (13-39) U/L ALT (7-52) U/L Alkaline Phosphatase (34-104) U/L Troponin I 0.01 (<0.04) ng/mL Total Protein (6.4-8.9) g/dL Albumin (3.2-5.2) g/dL Globulin (2-4) g/dL Albumin/Globulin Ratio (1-3) Result Diagrams: 06/01/17 23:35 06/01/17 23:35 Lab Statement: Any lab studies that have been ordered have been reviewed, and results considered in the medical decision making process. - Radiology CXR Xray Interpretation: No Acute Changes Radiology Interpretation Completed By: ED Physician - EKG 2250 Cardiac Rate: NL - 90 bpm EKG Rhythm: Sinus Rhythm EKG Comparison: No Significant Change - 11/02/2016 Chest Pain Course/Dx - Course Course Of Treatment: 36 yo male with cp two neg trops normal ekg ok to go home with stress test as an outpt - Diagnoses Provider Diagnoses: Chest pain Discharge - Discharge Plan Condition: Stable Disposition: HOME The documentation as recorded by the Ascencion castillo Soohyun accurately reflects the service I personally performed and the decisions made by me, Peggy Baltazar MD.
[2017-06-02 04:17] VITALS: BP 108/72
--- NOTE | 2017-06-02 11:41 | RAD ---
Indication: Asthma. Mid chest pain radiating into the RIGHT jaw. Comparison: January 12, 2017 Technique: Upright AP 2348 hours Report: Obesity limits image quality. No pulmonary infiltrate, focal pulmonary lesion, pleural effusion, pneumothorax. Upper normal heart size accounting for AP portable technique. Unremarkable central pulmonary vasculature and mediastinal contours. IMPRESSION: No evidence for acute intrathoracic disease.
== END 2017-06-02 04:23 | disposition home or self-care (01) ==
LOC: ED 22:40
DX: R07.9 Chest pain, unspecified (principal); R06.02 Shortness of breath; Z87.891 Personal history of nicotine dependence
CPT/HCPCS: 36415; 71010; 80053; 83605; 84484; 85025; 93005; 99282

== ENCOUNTER 2017-06-18 11:04 | Emergency (ER) | payer OTHER ==
--- NOTE | 2017-06-18 11:31 | UC ---
Respiratory Complaint HPI - HPI Summary HPI Summary: Mr Segovia is a 36 yo gentleman, presents today accompanied by mom, c/o approx several weeks of productive cough, wheezing, worse the last 4 days. No hemoptysis, + productive cough (doesn't look at color). No n/v. + constipation , taking miralax. Some pain R upper abd, attributes to constipation and /or gas , no n/v. Appetite good. No rash. Denies urinary sx. Reports that he is allergic to lots of abx, but can take clarithromycin and azithromycin. - History of Current Complaint Chief Complaint: UCRespiratory Stated Complaint: COUGH CONGESTION Time Seen by Provider: 06/18/17 11:30 Hx Obtained From: Patient Onset/Duration: Gradual Onset Severity Initially: Moderate Severity Currently: Moderate Character: Cough: Productive - Allergies/Home Medications Allergies/Adverse Reactions: Allergies Allergy/AdvReac Type Severity Reaction Status Date / Time Bupropion [From Zyban] Allergy Severe Difficulty Verified 06/18/17 11:25 Breathing Penicillins Allergy Severe Rash Verified 06/18/17 11:25 Cephalexin [From Keflex] Allergy Mild Rash Verified 06/18/17 11:25 Famotidine [From Pepcid AC] Allergy Mild Rash Verified 06/18/17 11:25 Fluticasone Allergy Mild Difficulty Verified 06/18/17 11:25 [From Advair Diskus] Breathing Moxifloxacin [From Avelox] Allergy Mild Hives Verified 06/18/17 11:25 Omeprazole [From Prilosec] Allergy Mild Rash Verified 06/18/17 11:25 Quinolones Allergy Mild Rash Verified 06/18/17 11:25 Salmeterol Allergy Mild Difficulty Verified 06/18/17 11:25 [From Advair Diskus] Breathing Sulfamethoxazole Allergy Mild Rash Verified 06/18/17 11:25 w/Trimethoprim [From Bactrim] Codeine Allergy Unknown Difficulty Verified 06/18/17 11:25 Breathing Doxycycline Allergy Unknown Rash Verified 06/18/17 11:25 Albuterol [From Ventolin] Allergy Difficulty Verified 06/18/17 11:25 Breathing Sertraline [From Zoloft] AdvReac Severe Hallucinati Verified 06/18/17 11:25 ons Buspirone [From Buspar] AdvReac Mild Dizziness Verified 06/18/17 11:25 Escitalopram [From Lexapro] AdvReac Unknown See Comment Verified 06/18/17 11:25 Citalopram [From Celexa] AdvReac See Comment Verified 06/18/17 11:25 Home Medications: Home Medications Albuterol Sulfate [Proair Respiclick] 2 puff INH DAILY PRN 06/18/17 [History Confirmed 06/18/17] Diphenhydramine HCl 50 mg PO BID PRN 06/18/17 [History Confirmed 06/18/17] Polyethylene Glycol 3350* [Miralax*] 1 packet PO BID 06/18/17 [History Confirmed 06/18/17] PMH/Surg Hx/FS Hx/Imm Hx Previously Healthy: Yes - except as noted Other History Of: Negative For: HIV, Hepatitis B, Hepatitis C, Anticoagulant Therapy - Surgical History Surgical History: Yes Surgery Procedure, Year, and Place: RIGHT ELBOW RECONSTRUCTION SURGERY 1983,. SLEEP APNEA SURGERY 2010 - Tonsilectomy, uvula, stretching throat. CHOLECYSTECTOMY - 09/10/16. cicumcision with biopsy - Family History Known Family History: Positive: Cardiac Disease - two uncles in their 40s, no primary relatives, Hypertension, Diabetes, Other - TIA on paternal side, cancer on both sides, blood clots Family History: FHx of seasonal allergies - both parents - Social History Alcohol Use: None Substance Use Type: None Substance Use Comment - Amount & Last Used: benzo's in the past Smoking Status (MU): Former Smoker Type: Cigarettes Amount Used/How Often: 1/2 ppd Length of Time of Smoking/Using Tobacco: 15 yrs Have You Smoked in the Last Year: No When Did the Patient Quit Smoking/Using Tobacco: April 2016 Household Exposure Type: Cigarettes - Immunization History Most Recent Influenza Vaccination: fall 2015 Most Recent Tetanus Shot: utd Most Recent Pneumonia Vaccination: fall 2015 Review of Systems Constitutional: Fatigue Skin: Negative Eyes: Negative ENT: Negative Respiratory: Negative Cardiovascular: Negative Gastrointestinal: Negative Genitourinary: Negative Motor: Negative Neurovascular: Negative Musculoskeletal: Negative Neurological: Negative Psychological: Negative All Other Systems Reviewed And Are Negative: Yes Physical Exam Triage Information Reviewed: Yes Appearance: Well-Nourished Vital Signs: Initial Vital Signs Temp 99.0 F 06/18/17 11:19 Pulse 110 06/18/17 11:19 Resp 18 06/18/17 11:19 BP 143/102 06/18/17 11:19 Pulse Ox 97 06/18/17 11:19 Vital Signs Reviewed: Yes Eye Exam: Normal ENT Exam: Other ENT: Positive: TM dull - dull, mendez au Neck exam: Normal Neck: Positive: Supple, Nontender, No Lymphadenopathy Respiratory Exam: Normal - rhonchorus cough Respiratory: Positive: Chest non-tender, Lungs clear, No respiratory distress, Wheezing - occas exp wheeze Cardiovascular Exam: Normal Cardiovascular: Positive: RRR, No Murmur, Pulses Normal, Brisk Capillary Refill Abdominal Exam: Normal Abdomen Description: Positive: Nontender, No Organomegaly, Soft Bowel Sounds: Positive: Present - gait steady Musculoskeletal Exam: Normal Neurological Exam: Normal - grossly nonfocal Psychological Exam: Normal - conversing easily and appropriately Skin Exam: Normal - no visible or reported rash UC Diagnostic Evaluation - Laboratory O2 Sat by Pulse Oximetry: 97 Respiratory Course/Dx - Course Course Of Treatment: Reports feeling constipated, has started generic miralax, some bm, but still constipated. Uses proair at home, it helps but still coughs. Urine dip noted. D/w pt. Reviewed cxr report from 06/01/17. Mr. Segovia will f/u with Dr. Uriostegui in the next 1-2 weeks. Seems pleased with care today, questions answered to the best of my ability. Aware to seek more immediate care for worse or new problems. - Differential Dx/Diagnosis Provider Diagnoses: Bronchitis Discharge - Discharge Plan Condition: Stable Disposition: HOME Prescriptions: Azithromyxin SHANT (NF) [Z-Shant (Zithromax) 250 mg tabs #6] 2 tab PO .TODAY, THEN 1 DAILY #6 tab Patient Education Materials: Acute Bronchitis (ED), Hypertension (ED) Referrals: Shad Uriostegui MD [Primary Care Provider] - Additional Instructions: Blood pressure 143 / 102 - please follow up with your doctor in the next 7 days if posssible. Seek medical attention for worse or new problems. Avoid "decongestants."
[2017-06-18 12:12] VITALS: BP 138/98
== END 2017-06-18 12:15 | disposition home or self-care (01) ==
LOC: UCEAST 11:04
DX: J40 Bronchitis, not specified as acute or chronic (principal); Z88.6 Allergy status to analgesic agent; Z88.1 Allergy status to other antibiotic agents; Z88.5 Allergy status to narcotic agent; Z88.8 Allergy status to other drugs, medicaments and biological substances
CPT/HCPCS: 81003; 99212; G0463

== ENCOUNTER 2017-07-08 19:50 | Emergency (ER) | payer OTHER ==
[2017-07-08 20:05] VITALS: BP 151/101
--- NOTE | 2017-07-08 20:24 | UC ---
Respiratory Complaint HPI - HPI Summary HPI Summary: 36 YEAR OLD MALE PRESENTS WITH COMPLAINS OF PRODUCTIVE COUGH AND CHEST CONGESTION. - History of Current Complaint Chief Complaint: UCRespiratory Stated Complaint: COUGH, AND CONGESTION Time Seen by Provider: 07/08/17 20:19 Hx Obtained From: Patient Onset/Duration: Sudden Onset Severity Initially: Moderate Severity Currently: Moderate Pain Scale Used: 0-10 Numeric - 5 - Allergies/Home Medications Allergies/Adverse Reactions: Allergies Allergy/AdvReac Type Severity Reaction Status Date / Time Bupropion [From Zyban] Allergy Severe Difficulty Verified 07/08/17 20:06 Breathing Penicillins Allergy Severe Rash Verified 07/08/17 20:06 Cephalexin [From Keflex] Allergy Mild Rash Verified 07/08/17 20:06 Famotidine [From Pepcid AC] Allergy Mild Rash Verified 07/08/17 20:06 Fluticasone Allergy Mild Difficulty Verified 07/08/17 20:06 [From Advair Diskus] Breathing Moxifloxacin [From Avelox] Allergy Mild Hives Verified 07/08/17 20:06 Omeprazole [From Prilosec] Allergy Mild Rash Verified 07/08/17 20:06 Quinolones Allergy Mild Rash Verified 07/08/17 20:06 Salmeterol Allergy Mild Difficulty Verified 07/08/17 20:06 [From Advair Diskus] Breathing Sulfamethoxazole Allergy Mild Rash Verified 07/08/17 20:06 w/Trimethoprim [From Bactrim] Codeine Allergy Unknown Difficulty Verified 07/08/17 20:06 Breathing Doxycycline Allergy Unknown Rash Verified 07/08/17 20:06 Albuterol [From Ventolin] Allergy Difficulty Verified 07/08/17 20:06 Breathing Sertraline [From Zoloft] AdvReac Severe Hallucinati Verified 07/08/17 20:06 ons Buspirone [From Buspar] AdvReac Mild Dizziness Verified 07/08/17 20:06 Escitalopram [From Lexapro] AdvReac Unknown See Comment Verified 07/08/17 20:06 Citalopram [From Celexa] AdvReac See Comment Verified 06/18/17 11:25 PMH/Surg Hx/FS Hx/Imm Hx Previously Healthy: Yes Other History Of: Negative For: HIV, Hepatitis B, Hepatitis C, Anticoagulant Therapy - Surgical History Surgical History: Yes Surgery Procedure, Year, and Place: RIGHT ELBOW RECONSTRUCTION SURGERY 1983,. SLEEP APNEA SURGERY 2010 - Tonsilectomy, uvula, stretching throat. CHOLECYSTECTOMY - 09/10/16. cicumcision with biopsy - Family History Known Family History: Positive: Cardiac Disease - two uncles in their 40s, no primary relatives, Hypertension, Diabetes, Other - TIA on paternal side, cancer on both sides, blood clots Family History: FHx of seasonal allergies - both parents - Social History Alcohol Use: None Substance Use Type: None Substance Use Comment - Amount & Last Used: benzo's in the past Smoking Status (MU): Former Smoker Type: Cigarettes Amount Used/How Often: 1/2 ppd Length of Time of Smoking/Using Tobacco: 15 yrs Have You Smoked in the Last Year: No When Did the Patient Quit Smoking/Using Tobacco: April 2016 Household Exposure Type: Cigarettes - Immunization History Most Recent Influenza Vaccination: fall 2015 Most Recent Tetanus Shot: utd Most Recent Pneumonia Vaccination: fall 2015 Review of Systems Constitutional: Negative Skin: Negative Eyes: Negative ENT: Negative, Nasal Discharge, Sinus Congestion, Sinus Pain/Tenderness Respiratory: Cough Cardiovascular: Negative Gastrointestinal: Negative Genitourinary: Negative Motor: Negative Neurovascular: Negative Musculoskeletal: Negative Neurological: Negative Psychological: Negative All Other Systems Reviewed And Are Negative: Yes Physical Exam Triage Information Reviewed: Yes Vital Signs: Initial Vital Signs Temp 36.1 C 07/08/17 20:02 Pulse 117 07/08/17 20:02 Resp 18 07/08/17 20:02 BP 151/101 07/08/17 20:02 Pulse Ox 99 07/08/17 20:02 Eye Exam: Normal ENT Exam: Normal Dental Exam: Normal Neck exam: Normal Neck: Positive: 1 Respiratory: Positive: Rhonchi, Wheezing Cardiovascular Exam: Normal Abdominal Exam: Normal Musculoskeletal Exam: Normal Neurological Exam: Normal Psychological Exam: Normal Skin Exam: Normal UC Diagnostic Evaluation - Laboratory O2 Sat by Pulse Oximetry: 99 Respiratory Course/Dx - Differential Dx/Diagnosis Provider Diagnoses: PRODUCTIVE COUGH. SINUS CONGESTION Discharge - Discharge Plan Condition: Stable Disposition: HOME Prescriptions: Azithromyxin SHANT (NF) [Z-Shant (Zithromax) 250 mg tabs #6] 2 tab PO .TODAY, THEN 1 DAILY #6 tab Promethazine-Dm [Promethazine/Dextromethor 6.25-15 mg/5Ml] 5 ml PO Q8H #120 ml Patient Education Materials: Acute Bronchitis (ED) Referrals: Kari Jensen MD [Medical Doctor] - Shad Uriostegui MD [Primary Care Provider] -
[2017-07-08] MEDS ORDERED: Azithromycin TAB* 250 MG PO ONE (20:29)
== END 2017-07-08 20:39 | disposition home or self-care (01) ==
LOC: UCEAST 19:50
DX: R05 Cough (principal); J34.89 Other specified disorders of nose and nasal sinuses; Z87.891 Personal history of nicotine dependence
CPT/HCPCS: 99212; A9270-GY; G0463

== ENCOUNTER 2017-07-24 11:07 | Emergency (ER) | payer OTHER ==
[2017-07-24] MEDS ORDERED: Al Hydrox/Mg Hydrox/Simet LIQ* 30 ML UDC PO ONE (12:20)
[2017-07-24] MEDS ORDERED: Lidocaine 2% VISCOUS* 15 ML UDC PO ONE (12:22)
--- NOTE | 2017-07-24 12:28 | UC ---
Abdominal Pain Male HPI - HPI Summary HPI Summary: INTERMITTENT EPIGASTRIC, SHARP PAIN THIS MORNING. ATE SOME CHOCOLATE CHIP COOKIES AND A CHOCOLATE MILKSHAKE - SYMPTOMS UNCHANGED. IS BURPING. NO FEVER. DENIES CP, SO. - History of Current Complaint Chief Complaint: UCGI Stated Complaint: CHEST COMPLAINT Time Seen by Provider: 07/24/17 12:12 Hx Obtained From: Patient Onset/Duration: Sudden Onset, Lasting Hours, Still Present Timing: Intermittent Episodes Lasting: Severity Initially: Moderate Severity Currently: None Pain Intensity: 0 Pain Scale Used: 0-10 Numeric Location: Epigastric Character: Cramping Aggravating Factor(s): Nothing Alleviating Factor(s): Nothing Associated Signs And Symptoms: Positive: Decreased Appetite, Nausea - Allergies/Home Medications Allergies/Adverse Reactions: Allergies Allergy/AdvReac Type Severity Reaction Status Date / Time Bupropion [From Zyban] Allergy Severe Difficulty Verified 07/08/17 20:06 Breathing Penicillins Allergy Severe Rash Verified 07/08/17 20:06 Cephalexin [From Keflex] Allergy Mild Rash Verified 07/08/17 20:06 Famotidine [From Pepcid AC] Allergy Mild Rash Verified 07/08/17 20:06 Fluticasone Allergy Mild Difficulty Verified 07/08/17 20:06 [From Advair Diskus] Breathing Moxifloxacin [From Avelox] Allergy Mild Hives Verified 07/08/17 20:06 Omeprazole [From Prilosec] Allergy Mild Rash Verified 07/08/17 20:06 Quinolones Allergy Mild Rash Verified 07/08/17 20:06 Salmeterol Allergy Mild Difficulty Verified 07/08/17 20:06 [From Advair Diskus] Breathing Sulfamethoxazole Allergy Mild Rash Verified 07/08/17 20:06 w/Trimethoprim [From Bactrim] Codeine Allergy Unknown Difficulty Verified 07/08/17 20:06 Breathing Doxycycline Allergy Unknown Rash Verified 07/08/17 20:06 Albuterol [From Ventolin] Allergy Difficulty Verified 07/08/17 20:06 Breathing Sertraline [From Zoloft] AdvReac Severe Hallucinati Verified 07/08/17 20:06 ons Buspirone [From Buspar] AdvReac Mild Dizziness Verified 07/08/17 20:06 Escitalopram [From Lexapro] AdvReac Unknown See Comment Verified 07/08/17 20:06 Citalopram [From Celexa] AdvReac See Comment Verified 06/18/17 11:25 PMH/Surg Hx/FS Hx/Imm Hx Endocrine History: Hypothyroidism, Dyslipidemia Respiratory History: Asthma GI/ History: Gastroesophageal Reflux Psychological History: Anxiety Other History Of: Negative For: HIV, Hepatitis B, Hepatitis C, Anticoagulant Therapy - Surgical History Surgical History: Yes Surgery Procedure, Year, and Place: RIGHT ELBOW RECONSTRUCTION SURGERY 1983,. SLEEP APNEA SURGERY 2010 - Tonsilectomy, uvula, stretching throat. CHOLECYSTECTOMY - 09/10/16. cicumcision with biopsy - Family History Known Family History: Positive: Cardiac Disease - two uncles in their 40s, no primary relatives, Hypertension, Diabetes, Other - TIA on paternal side, cancer on both sides, blood clots Family History: FHx of seasonal allergies - both parents - Social History Alcohol Use: None Substance Use Type: None Substance Use Comment - Amount & Last Used: benzo's in the past Smoking Status (MU): Former Smoker Type: Cigarettes Amount Used/How Often: 1/2 ppd Length of Time of Smoking/Using Tobacco: 15 yrs Have You Smoked in the Last Year: No When Did the Patient Quit Smoking/Using Tobacco: April 2016 Household Exposure Type: Cigarettes - Immunization History Most Recent Influenza Vaccination: fall 2015 Most Recent Tetanus Shot: utd Most Recent Pneumonia Vaccination: fall 2015 Review of Systems Constitutional: Negative Respiratory: Negative Cardiovascular: Negative Gastrointestinal: Abdominal Pain, Nausea Genitourinary: Negative All Other Systems Reviewed And Are Negative: Yes Physical Exam Triage Information Reviewed: Yes Appearance: Well-Appearing, No Pain Distress, Well-Nourished Vital Signs: Initial Vital Signs Temp 99.1 F 07/24/17 11:17 Pulse 93 07/24/17 11:17 Resp 16 07/24/17 11:17 BP 132/94 07/24/17 11:17 Pulse Ox 97 07/24/17 11:17 Vital Signs Reviewed: Yes Eyes: Positive: Conjunctiva Clear ENT: Positive: Hearing grossly normal Neck: Positive: Supple Respiratory Exam: Normal Cardiovascular Exam: Normal Abdomen Description: Positive: Soft, Other: - TTP UPPER ABD AND LLQ. NO REBOUND OR RIGIDITY. Negative: CVA Tenderness (R), CVA Tenderness (L), Distended, Guarding Bowel Sounds: Positive: Present Musculoskeletal: Positive: No Edema Neurological: Positive: Alert Psychological: Positive: Age Appropriate Behavior Skin: Negative: rashes Re-Evaluation - Re-Evaluation First Eval Re-Evaluation Time: 13:13 - NO CHANGE IN HIS ABD PAIN WITH GI COCKTAIL. PT OPTS TO GO TO ER AND REQUESTS AMBULANCE Change: Unchanged Abd Pain Male Course/Dx - Differential Dx/Clinical Impression Provider Diagnoses: EPIGASTRIC/LLQ PAIN - Physician Notification/Consults Discussed Patient Care With: Rashel Azevedo - [place] [facility] [place] Time Discussed With Above Provider: 13:17 Instructed by Provider To: Will See In ED Discharge - Discharge Plan Condition: Stable Disposition: TRANS HIGHER LVL OF CARE FAC Referrals: Shad Uriostegui MD [Primary Care Provider] -
[2017-07-24 13:15] VITALS: BP 132/90
== END 2017-07-24 13:55 | disposition short-term general hospital (02) ==
LOC: UCEAST 11:07
DX: R10.32 Left lower quadrant pain (principal); Z88.1 Allergy status to other antibiotic agents; Z88.2 Allergy status to sulfonamides; Z87.891 Personal history of nicotine dependence; R10.13 Epigastric pain
CPT/HCPCS: 99213; A9270-GY; G0463

== ENCOUNTER → 2017-07-24 14:00 | Emergency (ER) | payer OTHER ==
[~2017-07-24 14:00] MED LIST: NS 0.9% 1000 ML* 1,000 ML IV ONE; Sucralfate TAB* 1 GM PO ONE
[2017-07-24 14:46] LABS: Albumin 4.5 g/dL (3.2-5.2); BUN/Creatinine Ratio 11.5 (8-20); C Reactive Protein 12.69 mg/L (< 5.00); Calcium 9.9 mg/dL (8.6-10.3); EGFR African American 143.3 (>60); EGFR Non-African American 111.4 (>60); Globulin 3.6 g/dL (2-4); Total Bilirubin 0.5 mg/dL (0.2-1.0); Total Protein 8.1 g/dL (6.4-8.9)
[2017-07-24 14:48] LABS: Hematocrit 48 % (42-52); Mean Corpuscular HGB Conc 33 g/dl (31-36); Mean Corpuscular Hemoglobin 28 pg (27-31); Mean Corpuscular Volume 85 fL (80-94); Mean Platelet Volume 9 um3 (7.4-10.4); Red Blood Count 5.67 10^6/ul (4.0-5.4); Red Cell Distribution Width 14 % (10.5-15); White Blood Count 9.8 10^3/ul (3.5-10.8)
--- NOTE | 2017-07-24 17:05 | RAD ---
INDICATION: Right upper quadrant pain. COMPARISON: Comparison is made with a prior CT of the abdomen and pelvis from October 14, 2016. TECHNIQUE: Multiple real-time images of the right upper quadrant were obtained. FINDINGS: The patient is status post cholecystectomy. No intra or extrahepatic ductal distention is present. The common bile duct measured 0.6 cm in diameter. The liver is increased in echogenicity which correlates with fatty infiltration on the prior CT study. No significant focal abnormality is seen. The pancreas is partially obscured by overlying bowel gas. The right kidney is normal in size without evidence for hydronephrosis. IMPRESSION: 1. STATUS POST CHOLECYSTECTOMY. 2. HEPATIC STEATOSIS.
[2017-07-24 17:47] VITALS: BP 143/78
--- NOTE | 2017-07-26 11:46 | ED ---
Kenny Weinberg Benjamin, scribed for Rashel Azevedo MD on 07/24/17 at 1419 . Abdominal Pain/Male - HPI Summary HPI Summary: 36yo male c/o epigastric pain since this morning. Pt states that he didnt wake up with the pain but was asymptomatic last night. Pt describes the pain in diffuse abdomen, but mostly in the epigastric region. Also reports nausea and burning sensation in his throat. Surgical hx of cholecystectomy, and PMHx of thyroid sz, anxiety, asthma, sleep apnea, and HLD. 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 Onset/Duration: Sudden Onset - this morning, Still Present Timing: Constant Severity Initially: Mild Severity Currently: Mild Location: Diffuse, Epigastric - mostly in epigastric Radiates: No Aggravating Factor(s): Nothing Alleviating Factor(s): Nothing Associated Signs And Symptoms: Positive: Nausea, Other - burning sensation in throat - Allergies/Home Medications Allergies/Adverse Reactions: Allergies Allergy/AdvReac Type Severity Reaction Status Date / Time Bupropion [From Zyban] Allergy Severe Difficulty Verified 07/08/17 20:06 Breathing Penicillins Allergy Severe Rash Verified 07/08/17 20:06 Cephalexin [From Keflex] Allergy Mild Rash Verified 07/08/17 20:06 Famotidine [From Pepcid AC] Allergy Mild Rash Verified 07/08/17 20:06 Fluticasone Allergy Mild Difficulty Verified 07/08/17 20:06 [From Advair Diskus] Breathing Moxifloxacin [From Avelox] Allergy Mild Hives Verified 07/08/17 20:06 Omeprazole [From Prilosec] Allergy Mild Rash Verified 07/08/17 20:06 Quinolones Allergy Mild Rash Verified 07/08/17 20:06 Salmeterol Allergy Mild Difficulty Verified 07/08/17 20:06 [From Advair Diskus] Breathing Sulfamethoxazole Allergy Mild Rash Verified 07/08/17 20:06 w/Trimethoprim [From Bactrim] Codeine Allergy Unknown Difficulty Verified 07/08/17 20:06 Breathing Doxycycline Allergy Unknown Rash Verified 07/08/17 20:06 Albuterol [From Ventolin] Allergy Difficulty Verified 07/08/17 20:06 Breathing Sertraline [From Zoloft] AdvReac Severe Hallucinati Verified 07/08/17 20:06 ons Buspirone [From Buspar] AdvReac Mild Dizziness Verified 07/08/17 20:06 Escitalopram [From Lexapro] AdvReac Unknown See Comment Verified 07/08/17 20:06 Citalopram [From Celexa] AdvReac See Comment Verified 06/18/17 11:25 PMH/Surg Hx/FS Hx/Imm Hx Endocrine/Hematology History: Reports: Hx Thyroid Disease - hypothyroid Denies: Hx Anticoagulant Therapy, Hx Diabetes Cardiovascular History: Denies: Hx Congestive Heart Failure, Hx Deep Vein Thrombosis, Hx Hypertension , Hx Myocardial Infarction, Hx Pacemaker/ICD Respiratory History: Reports: Hx Asthma, Hx Sleep Apnea - that was cured via surgery, Other Respiratory Problems/Disorders - pneumonia 2x Denies: Hx Chronic Obstructive Pulmonary Disease (COPD), Hx Lung Cancer, Hx Pneumonia, Hx Pulmonary Embolism GI History: Denies: Hx Gall Bladder Disease, Hx Gastrointestinal Bleed, Hx Ulcer, Hx Urosepsis History: Denies: Hx Kidney Stones, Hx Renal Disease Sensory History: Denies: Hx Contacts or Glasses, Hx Hearing Aid Opthamlomology History: Denies: Hx Contacts or Glasses Neurological History: Denies: Hx Dementia, Hx Migraine, Hx Seizures Psychiatric History: Reports: Hx Anxiety, Hx Panic Disorder - TO TAKE MEDICATION PRIOR TO MRI Denies: Hx Depression, Hx Schizophrenia, Hx Bipolar Disorder, Hx Substance Abuse - Surgical History Surgery Procedure, Year, and Place: RIGHT ELBOW RECONSTRUCTION SURGERY 1983,. SLEEP APNEA SURGERY 2010 - Tonsilectomy, uvula, stretching throat. CHOLECYSTECTOMY - 09/10/16. cicumcision with biopsy - Immunization History Date of Tetanus Vaccine: unknown Date of Influenza Vaccine: 07/12/15 Infectious Disease History: Denies: Hx Clostridium Difficile, Hx Hepatitis, Hx Human Immunodeficiency Virus (HIV), Hx of Known/Suspected MRSA, Hx Shingles, Hx Tuberculosis, Hx Known/ Suspected VRE, Hx Known/Suspected VRSA, History Other Infectious Disease - Family History Known Family History: Positive: Cardiac Disease - two uncles in their 40s, no primary relatives, Hypertension, Diabetes, Other - TIA on paternal side, cancer on both sides, blood clots Family History: FHx of seasonal allergies - both parents - Social History Lives: With Family Alcohol Use: None Hx Substance Use: Yes Substance Use Type: Reports: None Substance Use Comment - Amount & Last Used: benzo's in the past Hx Tobacco Use: Yes Smoking Status (MU): Former Smoker Type: Cigarettes Amount Used/How Often: 1/2 ppd Length of Time of Smoking/Using Tobacco: 15 yrs Have You Smoked in the Last Year: No Review of Systems Constitutional: Negative Eyes: Negative Positive: Sore Throat - burning Cardiovascular: Negative Respiratory: Negative Positive: Abdominal Pain - epigastric, Nausea Genitourinary: Negative Positive: no symptoms reported Musculoskeletal: Negative Skin: Negative Neurological: Negative Psychological: Normal All Other Systems Reviewed And Are Negative: Yes Physical Exam Triage Information Reviewed: Yes Vital Signs On Initial Exam: Initial Vitals Temp Pulse Resp BP Pulse Ox 97.9 F 80 16 139/75 96 07/24/17 14:15 07/24/17 14:15 07/24/17 14:15 07/24/17 14:15 07/24/17 14:15 Vital Signs Reviewed: Yes Appearance: Positive: Well-Appearing, No Pain Distress, Obese Skin: Positive: Warm, Skin Color Reflects Adequate Perfusion, Dry Head/Face: Positive: Normal Head/Face Inspection Eyes: Positive: Normal, EOMI, GABINO ENT: Positive: Normal ENT inspection, Hearing grossly normal Neck: Positive: Supple, Nontender Respiratory/Lung Sounds: Positive: Clear to Auscultation, Breath Sounds Present Cardiovascular: Positive: RRR, Pulses are Symmetrical in both Upper and Lower Extremities Abdomen Description: Positive: Soft, Other: - obese. Negative: Nontender - epigastric tenderness Bowel Sounds: Positive: Present Musculoskeletal: Positive: Strength/ROM Intact Neurological: Positive: Sensory/Motor Intact, Alert, Oriented to Person Place, Time Psychiatric: Positive: Affect/Mood Appropriate Diagnostics - Vital Signs Vital Signs Temp Pulse Resp BP Pulse Ox 07/24/17 18:02 98.0 F 77 16 143/78 07/24/17 17:30 74 18 143/78 93 07/24/17 17:00 75 15 142/75 96 07/24/17 16:30 77 20 142/90 96 07/24/17 16:00 75 13 135/60 97 07/24/17 15:30 74 16 139/74 96 07/24/17 15:00 80 16 128/67 97 07/24/17 14:37 83 20 94 07/24/17 14:36 139/75 07/24/17 14:15 97.9 F 80 16 139/75 96 - Laboratory Lab Results: Lab Results 07/24/17 07/24/17 07/24/17 Range/Units 13:26 13:26 13:26 WBC 9.8 (3.5-10.8) 10^3/ul RBC 5.67 H (4.0-5.4) 10^6/ul Hgb 16.0 (14.0-18.0) g/dl Hct 48 (42-52) % MCV 85 (80-94) fL MCH 28 (27-31) pg MCHC 33 (31-36) g/dl RDW 14 (10.5-15) % Plt Count 261 (150-450) 10^3/ul MPV 9 (7.4-10.4) um3 Neut % (Auto) 49.3 (38-83) % Lymph % (Auto) 35.6 (25-47) % Rolette % (Auto) 9.3 H (1-9) % Eos % (Auto) 4.6 (0-6) % Baso % (Auto) 1.2 (0-2) % Absolute Neuts (auto) 4.8 (1.5-7.7) 10^3/ul Absolute Lymphs (auto) 3.5 (1.0-4.8) 10^3/ul Absolute Monos (auto) 0.9 H (0-0.8) 10^3/ul Absolute Eos (auto) 0.5 (0-0.6) 10^3/ul Absolute Basos (auto) 0.1 (0-0.2) 10^3/ul Absolute Nucleated RBC 0.01 10^3/ul Nucleated RBC % 0.1 Sodium 137 (133-145) mmol/L Potassium 4.0 (3.5-5.0) mmol/L Chloride 103 (101-111) mmol/L Carbon Dioxide 26 (22-32) mmol/L Anion Gap 8 (2-11) mmol/L BUN 9 (6-24) mg/dL Creatinine 0.78 (0.67-1.17) mg/dL Est GFR ( Amer) 143.3 (>60) Est GFR (Non-Af Amer) 111.4 (>60) BUN/Creatinine Ratio 11.5 (8-20) Glucose 88 (70-100) mg/dL Lactic Acid 1.1 (0.5-2.0) mmol/L Calcium 9.9 (8.6-10.3) mg/dL Total Bilirubin 0.50 (0.2-1.0) mg/dL AST 42 H (13-39) U/L ALT 36 (7-52) U/L Alkaline Phosphatase 110 H (34-104) U/L Troponin I 0.00 (<0.04) ng/mL C-Reactive Protein 12.69 H (< 5.00) mg/L Total Protein 8.1 (6.4-8.9) g/dL Albumin 4.5 (3.2-5.2) g/dL Globulin 3.6 (2-4) g/dL Albumin/Globulin Ratio 1.3 (1-3) Lipase 23 (11.0-82.0) U/L Result Diagrams: 07/24/17 13:26 07/24/17 13:26 Lab Statement: Any lab studies that have been ordered have been reviewed, and results considered in the medical decision making process. - Additional Comments Diagnostic Additional Comments: US ABDOMEN LIMITED IMPRESSION: 1. STATUS POST CHOLECYSTECTOMY. 2. HEPATIC STEATOSIS. ED physician has reviewed the radiology report and agrees with the findings. Re-Evaluation - Re-Evaluation First Eval Re-Evaluation Time: 17:39 Comment: Reviewed pts lab and imaging results with the pt. Abdominal Pain Fem Course/Dx - Course Course Of Treatment: Mr. Segovia presented with epigastric and RUQ pain. He is S /P choecyctectomy but his ALP was elevated so he got an U?S which was negative. He did get some relief from sucralfate (he is intolerant of PPI's and H2 Blockers) so I will give him a trial of a few days and recommend close F/U. - Diagnoses Provider Diagnoses: Epigastric abdominal pain Discharge - Discharge Plan Condition: Stable Disposition: HOME Prescriptions: Sucralfate TAB* [Carafate*] 1 gm PO QID #40 tab Patient Education Materials: Epigastric Pain (ED) Referrals: Shad Uriostegui MD [Primary Care Provider] - The documentation as recorded by the Kenny castillo Benjamin accurately reflects the service I personally performed and the decisions made by , Rashel Azevedo MD.
== END | disposition home or self-care (01) ==
LOC: ED 14:00
DX: R10.13 Epigastric pain (principal); R11.0 Nausea; N28.89 Other specified disorders of kidney and ureter; J02.9 Acute pharyngitis, unspecified; Z87.891 Personal history of nicotine dependence
CPT/HCPCS: 36415; 76705; 80053; 83605; 83690; 84484; 85025; 86140; 99284; A9270-GY

== ENCOUNTER 2017-08-27 22:21 | Emergency (ER) | payer OTHER ==
[2017-08-28 00:14] LABS: Hematocrit 41 % (42-52); Hemoglobin 13.7 g/dl (14.0-18.0); Mean Corpuscular HGB Conc 34 g/dl (31-36); Mean Corpuscular Hemoglobin 28 pg (27-31); Mean Corpuscular Volume 83 fL (80-94); Mean Platelet Volume 9 um3 (7.4-10.4); Red Cell Distribution Width 14 % (10.5-15); White Blood Count 7.9 10^3/ul (3.5-10.8)
--- NOTE | 2017-08-28 00:29 | ED ---
HPI Chest Pain - HPI Summary HPI Summary: 36M w/ PMH of asthma and GERD presents for intermittent chest pain today. He states he had eaten some fast food and then 15 mins later felt some sharp burning pain in his chest off the the side of his chest. This episode lasted 15 mins. then later that day he had a cough fit and developed right side sharp chest pain that radiated to his jaw for 10 mins. He has not had chest pain in 3 hours. He admits to cough and nasal congestion. He states he feels he is developing bronchitis again. He had a negative stress test two months ago. He is follow up with his GI dr the end of the month. He denies any pain into his arm. He states he has occasionally SOB. He has been using his inhaler more frequently. He denies any nausea. He had a cholecystecomy. He has a follow up with his pulomonologist to discuss his multiple episode of bronchitis. He recently restarted his CPAP again and it is triggering his asthma. He denies any fever. He admits to epigastric pain occasionally that is relieved with tums. He did not take an ASA. - History of Current Complaint Chief Complaint: EDChestPainROMI Time Seen by Provider: 08/27/17 23:29 Pain Intensity: 8 - Allergy/Home Medications Allergies/Adverse Reactions: Allergies Allergy/AdvReac Type Severity Reaction Status Date / Time Bupropion [From Zyban] Allergy Severe Difficulty Verified 08/27/17 22:26 Breathing Penicillins Allergy Severe Rash Verified 08/27/17 22:26 Cephalexin [From Keflex] Allergy Mild Rash Verified 08/27/17 22:26 Famotidine [From Pepcid AC] Allergy Mild Rash Verified 08/27/17 22:26 Fluticasone Allergy Mild Difficulty Verified 08/27/17 22:26 [From Advair Diskus] Breathing Moxifloxacin [From Avelox] Allergy Mild Hives Verified 08/27/17 22:26 Omeprazole [From Prilosec] Allergy Mild Rash Verified 08/27/17 22:26 Quinolones Allergy Mild Rash Verified 08/27/17 22:26 Salmeterol Allergy Mild Difficulty Verified 08/27/17 22:26 [From Advair Diskus] Breathing Sulfamethoxazole Allergy Mild Rash Verified 08/27/17 22:26 w/Trimethoprim [From Bactrim] Codeine Allergy Unknown Difficulty Verified 08/27/17 22:26 Breathing Doxycycline Allergy Unknown Rash Verified 08/27/17 22:26 Albuterol [From Ventolin] Allergy Difficulty Verified 08/27/17 22:26 Breathing Sertraline [From Zoloft] AdvReac Severe Hallucinati Verified 08/27/17 22:26 ons Buspirone [From Buspar] AdvReac Mild Dizziness Verified 08/27/17 22:26 Escitalopram [From Lexapro] AdvReac Unknown See Comment Verified 08/27/17 22:26 Citalopram [From Celexa] AdvReac See Comment Verified 08/27/17 22:26 PMH/Surg Hx/FS Hx/Imm Hx Endocrine/Hematology History: Reports: Hx Thyroid Disease - hypothyroid Denies: Hx Anticoagulant Therapy, Hx Diabetes Cardiovascular History: Denies: Hx Congestive Heart Failure, Hx Deep Vein Thrombosis, Hx Hypertension , Hx Myocardial Infarction, Hx Pacemaker/ICD Respiratory History: Reports: Hx Asthma, Hx Sleep Apnea - that was cured via surgery, Other Respiratory Problems/Disorders - pneumonia 2x Denies: Hx Chronic Obstructive Pulmonary Disease (COPD), Hx Lung Cancer, Hx Pneumonia, Hx Pulmonary Embolism GI History: Denies: Hx Gall Bladder Disease, Hx Gastrointestinal Bleed, Hx Ulcer, Hx Urosepsis History: Denies: Hx Kidney Stones, Hx Renal Disease Sensory History: Denies: Hx Contacts or Glasses, Hx Hearing Aid Opthamlomology History: Denies: Hx Contacts or Glasses Neurological History: Denies: Hx Dementia, Hx Migraine, Hx Seizures Psychiatric History: Reports: Hx Anxiety, Hx Panic Disorder - TO TAKE MEDICATION PRIOR TO MRI Denies: Hx Depression, Hx Schizophrenia, Hx Bipolar Disorder, Hx Substance Abuse - Surgical History Surgery Procedure, Year, and Place: RIGHT ELBOW RECONSTRUCTION SURGERY 1983,. SLEEP APNEA SURGERY 2010 - Tonsilectomy, uvula, stretching throat. CHOLECYSTECTOMY - 09/10/16. cicumcision with biopsy - Immunization History Date of Tetanus Vaccine: unknown Date of Influenza Vaccine: 07/12/15 Infectious Disease History: No Infectious Disease History: Denies: Hx Clostridium Difficile, Hx Hepatitis, Hx Human Immunodeficiency Virus (HIV), Hx of Known/Suspected MRSA, Hx Shingles, Hx Tuberculosis, Hx Known/ Suspected VRE, Hx Known/Suspected VRSA, History Other Infectious Disease, Traveled Outside the [place] in Last 30 Days - Family History Known Family History: Positive: Cardiac Disease - two uncles in their 40s, no primary relatives, Hypertension, Diabetes, Other - TIA on paternal side, cancer on both sides, blood clots Family History: FHx of seasonal allergies - both parents - Social History Alcohol Use: None Hx Substance Use: Yes Substance Use Type: Reports: None Substance Use Comment - Amount & Last Used: benzo's in the past Hx Tobacco Use: Yes Smoking Status (MU): Former Smoker Type: Cigarettes Amount Used/How Often: 1/2 ppd Length of Time of Smoking/Using Tobacco: 15 yrs Have You Smoked in the Last Year: No Review of Systems Negative: Fever Positive: Chest Pain Positive: Shortness Of Breath, Cough All Other Systems Reviewed And Are Negative: Yes Physical Exam Triage Information Reviewed: Yes Vital Signs On Initial Exam: Initial Vitals Temp Pulse Resp BP Pulse Ox 98.2 F 81 16 115/79 97 08/27/17 22:23 08/27/17 22:23 08/27/17 22:23 08/27/17 22:23 08/27/17 22:23 Vital Signs Reviewed: Yes Appearance: Positive: Well-Appearing Skin: Positive: Warm, Dry Head/Face: Positive: Normal Head/Face Inspection Eyes: Positive: Normal, EOMI, GABINO, Conjunctiva Clear ENT: Positive: Normal ENT inspection, Pharynx normal, Nasal congestion, TMs normal Neck: Positive: Supple, Nontender, No Lymphadenopathy Respiratory/Lung Sounds: Positive: Clear to Auscultation, Breath Sounds Present , Other - neg egophony Cardiovascular: Positive: Normal, RRR Abdomen Description: Positive: Soft, Other: - mild epigastric pain Bowel Sounds: Positive: Present Musculoskeletal: Positive: Normal Neurological: Positive: Normal Psychiatric: Positive: Normal Diagnostics - Vital Signs Vital Signs Temp Pulse Resp BP Pulse Ox 08/27/17 22:23 98.2 F 81 16 115/79 97 - Laboratory Lab Results: Lab Results 08/27/17 Range/Units 23:05 WBC 7.9 (3.5-10.8) 10^3/ul RBC 4.90 (4.0-5.4) 10^6/ul Hgb 13.7 L (14.0-18.0) g/dl Hct 41 L (42-52) % MCV 83 (80-94) fL MCH 28 (27-31) pg MCHC 34 (31-36) g/dl RDW 14 (10.5-15) % Plt Count 238 (150-450) 10^3/ul MPV 9 (7.4-10.4) um3 Neut % (Auto) 51.8 (38-83) % Lymph % (Auto) 34.3 (25-47) % [place] % (Auto) 7.9 (1-9) % Eos % (Auto) 4.8 (0-6) % Baso % (Auto) 1.2 (0-2) % Absolute Neuts (auto) 4.1 (1.5-7.7) 10^3/ul Absolute Lymphs (auto) 2.7 (1.0-4.8) 10^3/ul Absolute Monos (auto) 0.6 (0-0.8) 10^3/ul Absolute Eos (auto) 0.4 (0-0.6) 10^3/ul Absolute Basos (auto) 0.1 (0-0.2) 10^3/ul Absolute Nucleated RBC 0.01 10^3/ul Nucleated RBC % 0.1 Result Diagrams: 08/27/17 23:05 08/27/17 23:05 Lab Statement: Any lab studies that have been ordered have been reviewed, and results considered in the medical decision making process. - EKG No standard instances Cardiac Rate: NL EKG Rhythm: Sinus Rhythm ST Segment: Normal EKG Interpretation: normal sinus rhythm EKG Comparison: No Significant Change Chest Pain Course/Dx - Course Course Of Treatment: 36M w/ PMH of asthma and GERD presents for intermittent chest pain today. He states he had eaten some fast food and then 15 mins later felt some sharp burning pain in his chest off the the side of his chest. This episode lasted 15 mins. then later that day he had a cough fit and developed right side sharp chest pain that radiated to his jaw for 10 mins. He has not had chest pain in 3 hours. He admits to cough and nasal congestion. He states he feels he is developing bronchitis again. He had a negative stress test two months ago. He is follow up with his GI dr the end of the month. He denies any pain into his arm. He states he has occasionally SOB. He has been using his inhaler more frequently. He denies any nausea. He had a cholecystecomy. He has a follow up with his pulomonologist to discuss his multiple episode of bronchitis. He recently restarted his CPAP again and it is triggering his asthma. He denies any fever. He admits to epigastric pain occasionally that is relieved with tums. He did not take an ASA. on exam heart RRR and lungs CTA. ekg sinus rhythmn. chest xray normal, may be possible infiltrate. due to normal ekg, troponin 3 hour out from chest pain normal and negative stress test two months ago will discharge without second troponin which patient agrees to as unlikely cardiac related. will treat as bronchitis with zpack which patient can take. symptoms either due to GERD or bronchitis. patient understand and agrees with plan. - Chest Pain Differential Diagnosis/HQI/PQRI: ACS, Chest Wall, GI Disease, Lower Respiratory Infection, Pulmonary Embolism - Diagnoses Provider Diagnoses: Chest pain, Bronchitis Discharge - Discharge Plan Condition: Good Disposition: HOME Prescriptions: Azithromycin TAB* [Zithromax TAB (Z-SHANT) 250 mg #6 tabs] 250 mg PO DAILY #4 tab Patient Education Materials: Acute Bronchitis (ED) Referrals: Shad Uriostegui MD [Primary Care Provider] - Additional Instructions: Take antibiotic once a day starting tomorrow for 4 more days Take inhaler every 4-6 hours for SOB or cough Take tums for acid reflex Follow up with primary, pulmonology and GI Return to ED if develop any new or worsening symptoms
[2017-08-28 00:36] LABS: Albumin 3.9 g/dL (3.2-5.2); BUN/Creatinine Ratio 8.2 (8-20); Calcium 9.4 mg/dL (8.6-10.3); EGFR African American 154.6 (>60); EGFR Non-African American 120.2 (>60); Globulin 3.1 g/dL (2-4); Potassium 3.3 mmol/L (3.5-5.0); Total Bilirubin 0.5 mg/dL (0.2-1.0)
[2017-08-28] MEDS ORDERED: Azithromycin TAB* 250 MG PO ONE (00:57)
[2017-08-28 01:21] VITALS: BP 122/73
--- NOTE | 2017-08-28 07:49 | RAD ---
INDICATION: Cough. Short of breath COMPARISON: June 01, 2017 TECHNIQUE: PA and lateral dual-energy views were obtained. FINDINGS: Bones/Soft Tissues: There are no acute bony findings. Cardiomediastinal: The cardiomediastinal silhouette is normal. Lungs: There are no infiltrates. Pleura: There are no pleural effusions. Other: None IMPRESSION: NO ACTIVE DISEASE.
== END 2017-08-28 01:20 | disposition home or self-care (01) ==
LOC: ED 22:21
DX: R07.9 Chest pain, unspecified (principal); J40 Bronchitis, not specified as acute or chronic; Z87.09 Personal history of other diseases of the respiratory system; R06.02 Shortness of breath; Z87.891 Personal history of nicotine dependence
CPT/HCPCS: 36415; 71020; 80053; 83605; 84484; 85025; 85379; 93005; 99284; A9270-GY

== ENCOUNTER 2017-09-19 01:14 | Emergency (ER) | payer OTHER ==
[2017-09-19] MEDS ORDERED: Metoclopramide IV* 5 MG/ML 2 ML VIAL IV ONE (01:49)
[2017-09-19] MEDS ORDERED: Morphine INJ* 4 MG/ML 1 ML CARPUJECT IV ONE (01:49)
[2017-09-19] MEDS ORDERED: NS 0.9% 1000 ML* 1,000 ML IV ONE (01:49)
[2017-09-19 02:07] LABS: Hematocrit 43 % (42-52); Hemoglobin 14.7 g/dl (14.0-18.0); Mean Corpuscular HGB Conc 34 g/dl (31-36); Mean Corpuscular Hemoglobin 29 pg (27-31); Mean Corpuscular Volume 85 fL (80-94); Mean Platelet Volume 8 um3 (7.4-10.4); Red Blood Count 5.08 10^6/ul (4.0-5.4); Red Cell Distribution Width 14 % (10.5-15); White Blood Count 9.3 10^3/ul (3.5-10.8)
[2017-09-19 02:21] LABS: Albumin 4.2 g/dL (3.2-5.2); C Reactive Protein 8.31 mg/L (< 5.00); Calcium 9.8 mg/dL (8.6-10.3); EGFR African American 170.7 (>60); EGFR Non-African American 132.8 (>60); Potassium 3.3 mmol/L (3.5-5.0); Total Bilirubin 0.5 mg/dL (0.2-1.0); Total Protein 7.2 g/dL (6.4-8.9)
[2017-09-19 03:24] LABS: Urine Bacteria Absent (Absent); Urine Bilirubin Negative (Negative); Urine Glucose Negative (Negative); Urine Nitrite Negative (Negative)
[2017-09-19] MEDS ORDERED: Iohexol 300* (CONTRAST) 10 ML SDV IV ONE (03:27)
[2017-09-19] MEDS ORDERED: Dexamethasone IV* 4 MG/ML 5 ML VIAL (20 MG) ONE (03:56)
[2017-09-19] MEDS ORDERED: diPHENhydraMINE IV* 50 MG/ML 1 ml VIAL (BENADRYL) ONE (03:56)
[2017-09-19] MEDS ORDERED: Dexamethasone IV* 4 MG/ML 1 ML (4 MG) ONE (03:57)
[2017-09-19] MEDS ORDERED: diPHENhydraMINE IV* 50 MG/ML 1 ml VIAL (BENADRYL) IV ONE (04:01)
[2017-09-19] MEDS ORDERED: Dexamethasone IV* 4 MG/ML 1 ML (4 MG) IV SLOW PU ONE (04:02)
[2017-09-19] MEDS ORDERED: Potassium Chlor TAB* 20 MEQ TAB.ER PO ONE (04:43)
[2017-09-19 04:44] VITALS: BP 147/90
--- NOTE | 2017-09-19 04:54 | ED ---
Temo Weinberg Nilda, scribed for Mabel Patel MD on 09/19/17 at 0155 . Abdominal Pain/Male - HPI Summary HPI Summary: This patient is a 36 year old M presenting to [facility] with a chief complaint of diffuse intermittent (lasting 30 mins) abd pain that radiates to back since 4 days ago. Today, abd cramping has lasted for a few hours. The patient rates the pain 8/10 in severity. Symptoms aggravated by palpation and alleviated by nothing. Patient reports nausea and difficulty moving bowels. Last BM was 2 days ago. Patient states he is seeing a GI specialist who placed him on a bland diet. He denies GI PMHx. - History of Current Complaint Chief Complaint: EDAbdPain Stated Complaint: ABD CRAMPS/BACK PAIN Time Seen by Provider: 09/19/17 01:38 Hx Obtained From: Patient Onset/Duration: Gradual Onset, Lasting Days, Still Present Timing: Intermittent Severity Currently: Severe Pain Intensity: 8 Pain Scale Used: 0-10 Numeric Location: Diffuse Radiates: Yes Radiates to: Back Character: Cramping Aggravating Factor(s): Other: - palpation Alleviating Factor(s): Nothing Associated Signs And Symptoms: Positive: Nausea, Other - difficulty moving bowels - Allergies/Home Medications Allergies/Adverse Reactions: Allergies Allergy/AdvReac Type Severity Reaction Status Date / Time Bupropion [From Zyban] Allergy Severe Difficulty Verified 08/27/17 22:26 Breathing Penicillins Allergy Severe Rash Verified 08/27/17 22:26 Cephalexin [From Keflex] Allergy Mild Rash Verified 08/27/17 22:26 Famotidine [From Pepcid AC] Allergy Mild Rash Verified 08/27/17 22:26 Fluticasone Allergy Mild Difficulty Verified 08/27/17 22:26 [From Advair Diskus] Breathing Iodinated Diagnostic Agents Allergy Mild Itching Verified 09/19/17 04:05 Moxifloxacin [From Avelox] Allergy Mild Hives Verified 08/27/17 22:26 Omeprazole [From Prilosec] Allergy Mild Rash Verified 08/27/17 22:26 Quinolones Allergy Mild Rash Verified 08/27/17 22:26 Salmeterol Allergy Mild Difficulty Verified 08/27/17 22:26 [From Advair Diskus] Breathing Sulfamethoxazole Allergy Mild Rash Verified 08/27/17 22:26 w/Trimethoprim [From Bactrim] Codeine Allergy Unknown Difficulty Verified 08/27/17 22:26 Breathing Doxycycline Allergy Unknown Rash Verified 08/27/17 22:26 Albuterol [From Ventolin] Allergy Difficulty Verified 08/27/17 22:26 Breathing Sertraline [From Zoloft] AdvReac Severe Hallucinati Verified 08/27/17 22:26 ons Buspirone [From Buspar] AdvReac Mild Dizziness Verified 08/27/17 22:26 Escitalopram [From Lexapro] AdvReac Unknown See Comment Verified 08/27/17 22:26 Citalopram [From Celexa] AdvReac See Comment Verified 08/27/17 22:26 PMH/Surg Hx/FS Hx/Imm Hx Endocrine/Hematology History: Reports: Hx Thyroid Disease - hypothyroid Denies: Hx Anticoagulant Therapy, Hx Diabetes Cardiovascular History: Denies: Hx Congestive Heart Failure, Hx Deep Vein Thrombosis, Hx Hypertension , Hx Myocardial Infarction, Hx Pacemaker/ICD Respiratory History: Reports: Hx Asthma, Hx Sleep Apnea - that was cured via surgery, Other Respiratory Problems/Disorders - pneumonia 2x Denies: Hx Chronic Obstructive Pulmonary Disease (COPD), Hx Lung Cancer, Hx Pneumonia, Hx Pulmonary Embolism GI History: Denies: Hx Gall Bladder Disease, Hx Gastrointestinal Bleed, Hx Ulcer, Hx Urosepsis History: Denies: Hx Kidney Stones, Hx Renal Disease Sensory History: Denies: Hx Contacts or Glasses, Hx Hearing Aid Opthamlomology History: Denies: Hx Contacts or Glasses Neurological History: Denies: Hx Dementia, Hx Migraine, Hx Seizures Psychiatric History: Reports: Hx Anxiety, Hx Panic Disorder - TO TAKE MEDICATION PRIOR TO MRI Denies: Hx Depression, Hx Schizophrenia, Hx Bipolar Disorder, Hx Substance Abuse - Surgical History Surgery Procedure, Year, and Place: RIGHT ELBOW RECONSTRUCTION SURGERY 1983,. SLEEP APNEA SURGERY 2010 - Tonsilectomy, uvula, stretching throat. CHOLECYSTECTOMY - 09/10/16. cicumcision with biopsy - Immunization History Date of Tetanus Vaccine: unknown Date of Influenza Vaccine: 07/12/15 Infectious Disease History: No Infectious Disease History: Denies: Hx Clostridium Difficile, Hx Hepatitis, Hx Human Immunodeficiency Virus (HIV), Hx of Known/Suspected MRSA, Hx Shingles, Hx Tuberculosis, Hx Known/ Suspected VRE, Hx Known/Suspected VRSA, History Other Infectious Disease, Traveled Outside the [place] in Last 30 Days - Family History Known Family History: Positive: Cardiac Disease - two uncles in their 40s, no primary relatives, Hypertension, Diabetes, Other - TIA on paternal side, cancer on both sides, blood clots Family History: FHx of seasonal allergies - both parents - Social History Alcohol Use: None Hx Substance Use: Yes Substance Use Type: Reports: None Substance Use Comment - Amount & Last Used: benzo's in the past Hx Tobacco Use: Yes Smoking Status (MU): Former Smoker Type: Cigarettes Amount Used/How Often: 1/2 ppd Length of Time of Smoking/Using Tobacco: 15 yrs Have You Smoked in the Last Year: No Review of Systems Positive: Abdominal Pain, Nausea, Other - difficulty moving bowels Positive: Other - back pain All Other Systems Reviewed And Are Negative: Yes Physical Exam - Summary Physical Exam Summary: GENERAL: Patient is a well-developed and nourished male who is lying comfortable in the stretcher. Patient is not in any acute respiratory distress. HEAD AND FACE: No signs of trauma. No ecchymosis, hematomas or skull depressions. No sinus tenderness. EYES: PERRLA, EOMI x 2, No injected conjunctiva, no nystagmus. EARS: Hearing grossly intact. Ear canals and tympanic membranes are within normal limits. MOUTH: Oropharynx within normal limits. NECK: Supple, trachea is midline, no adenopathy, no JVD, no carotid bruit, no c- spine tenderness, neck with full ROM. CHEST: Symmetric, no tenderness at palpation LUNGS: Clear to auscultation bilaterally. No wheezing or crackles. CVS: Regular rate and rhythm, S1 and S2 present, no murmurs or gallops appreciated. ABDOMEN: Soft with bilateral lower quadrant tenderness (right worse than left). No signs of distention. No rebound no guarding, and no masses palpated. Bowel sounds are normal. EXTREMITIES: FROM in all major joints, no edema, no cyanosis or clubbing. NEURO: Alert and oriented x 3. No acute neurological deficits. Speech is normal and follows commands. SKIN: Dry and warm Triage Information Reviewed: Yes Vital Signs On Initial Exam: Initial Vitals Temp Pulse Resp BP Pulse Ox 98.2 F 86 18 151/92 97 09/19/17 01:22 09/19/17 01:22 09/19/17 01:22 09/19/17 01:22 09/19/17 01:22 Vital Signs Reviewed: Yes Diagnostics - Vital Signs Vital Signs Temp Pulse Resp BP Pulse Ox 09/19/17 01:22 98.2 F 86 18 151/92 97 - Laboratory Result Diagrams: 09/19/17 01:55 09/19/17 01:55 Lab Statement: Any lab studies that have been ordered have been reviewed, and results considered in the medical decision making process. - CT Abd/Pel CT Interpretation Completed By: Radiologist - CT Abd/Pel, per radiologist, reveals no acute pathology. Solid splenic lesion can be further evaluated with nonemergent MRI. Degenerative changes of the spine as described above. ED Taryn reviewed this report and agrees. Re-Evaluation - Re-Evaluation First Eval Re-Evaluation Time: 03:55 Comment: Pt feels better after pain medication administered. Discussed lab results. Abdominal Pain Fem Course/Dx - Course Course Of Treatment: This patient is a 36 year old M presenting to [facility] with a chief complaint of diffuse intermittent (lasting 30 mins) abd pain that radiates to back since 4 days ago. Today, abd cramping has lasted for a few hours. The patient rates the pain 8/10 in severity. Symptoms aggravated by palpation and alleviated by nothing. Patient reports nausea and difficulty moving bowels. Last BM was 2 days ago. Patient states he is seeing a GI specialist who placed him on a bland diet. He denies GI PMHx. Pending CT Abd/ Pel. CT Abd/Pel, per radiologist, reveals no acute pathology. Solid splenic lesion can be further evaluated with nonemergent MRI. Degenerative changes of the spine as described above. ED Taryn reviewed this report and agrees. Pt feels better after pain medication administered. Discussed lab results. Pt is stable and will be D/C with a diagnosis of abdominal pain and follow up with PCP and GI. Pt understands and is agreeable with this plan. - Diagnoses Provider Diagnoses: Abdominal pain Discharge - Discharge Plan Condition: Stable Disposition: HOME Patient Education Materials: Abdominal Pain (ED) Referrals: Shad Uriostegui MD [Primary Care Provider] - 2 Days Additional Instructions: Follow up with PCP and GI doctors in two days. RETURN TO THE EMERGENCY DEPARTMENT FOR CHANGING OR WORSENING SYMPTOMS. The documentation as recorded by the scribe, Plascencia,Chayito accurately reflects the service I personally performed and the decisions made by me, Mabel Patel MD.
--- NOTE | 2017-09-19 09:54 | RAD ---
CLINICAL HISTORY: Abdominal cramps and "difficulty with moving bowels". Relevant surgical history includes cholecystectomy. COMPARISON: Multiple prior CTs, most recently dated October 14, 2016 TECHNIQUE: Contrast enhanced CT examination of the abdomen and pelvis from the lung bases through the initial tuberosities. The patient received 150 mL Omnipaque 300 intravenously prior to imaging.The patient received oral contrast as well prior to imaging. FINDINGS: Unless otherwise specified, comparisons made below reference to October 14, 2016 CT. VISUALIZED LUNG BASES: The visualized lung bases are grossly clear. There is no pleural effusion. ABDOMEN AND PELVIS: In the spleen there is a focal hypodense lesion measuring 2 cm in axial dimension similar appearance to images on the ninth 1114 CT examination. The liver is homogenously hypodense relative to the spleen. There are no focal suspicious masses or lesions. The pancreas and adrenal glands are grossly normal in appearance. The gallbladder is normal. The kidneys are normal in appearance without focal mass, calcification or signs of hydronephrosis. Contrast has progressed as far as the proximal transverse colon. The small and large bowel are not distended. The patient's normal appendix is identified in the right lower quadrant measuring just under 5 mm in diameter (axial image 63). There are rectosigmoid diverticula but none exhibit focal inflammatory change characteristic of acute diverticulitis. There is no gross retroperitoneal or mesenteric lymphadenopathy. The pelvic viscera is normal in appearance. The abdominal aorta and iliac arteries are normal in course and diameter. Degenerative changes include multilevel loss of intervertebral disc height involving the lower thoracic and lumbar spine.There are no sinister bone lesions. IMPRESSION: 1. Stable 2 cm solid lesion in the spleen has not changed since the July 08, 2014 CT examination. A benign etiology is favored. 2. Diverticulosis without acute inflammatory change characteristic of diverticulitis. 3. Likely hepatic steatosis.
== END 2017-09-19 05:00 | disposition home or self-care (01) ==
LOC: ED 01:14
DX: R10.84 Generalized abdominal pain (principal); Z53.21 Procedure and treatment not carried out due to patient leaving prior to being seen by health care provider
CPT/HCPCS: 36415; 74177; 80053; 81003; 81015; 82150; 83690; 85025; 86140; 87086; A9270-GY; J1100; J1200; J2270; J2765; Q9967

== ENCOUNTER 2017-10-10 13:11 | Emergency (ER) | payer OTHER ==
[2017-10-10 13:28] VITALS: BP 128/80
--- NOTE | 2017-10-10 14:11 | UC ---
Respiratory Complaint HPI - HPI Summary HPI Summary: 36 y/o male presents to the urgent care c/o chest congestion, sore throat for the past 4 days. Pt reports his Left ear started to hurt this morning. Pt reports symptoms started about 1 week ago with a common cold. Now nasal congestion is worse with green nasal discharge, PND and sinus pain and FOX. Pain is 5/10. He has taken tylenol to alleviate symptoms Denies fever, SOB, chest pain, abdominal pain, N/V/D. - History of Current Complaint Chief Complaint: UCRespiratory Stated Complaint: CONGESTED, COUGH Time Seen by Provider: 10/10/17 14:07 Hx Obtained From: Patient Onset/Duration: Gradual Onset, Lasting Weeks - 1 week, Worse Since - yesterday Timing: Constant Severity Initially: Mild Severity Currently: Moderate Pain Intensity: 5 Pain Scale Used: 0-10 Numeric Character: Cough: Nonproductive Alleviating Factors: OTC Meds Associated Signs And Symptoms: Positive: URI, Nasal Congestion, Sinus Discomfort. Negative: Fever - Risk Factors Pulmonary Embolism Risk Factors: Negative Cardiac Risk Factors: Negative Pseudomonas Risk Factors: Negative Tuberculosis Risk Factors: Negative - Allergies/Home Medications Allergies/Adverse Reactions: Allergies Allergy/AdvReac Type Severity Reaction Status Date / Time Bupropion [From Zyban] Allergy Severe Difficulty Verified 10/10/17 13:31 Breathing Penicillins Allergy Severe Rash Verified 10/10/17 13:31 Cephalexin [From Keflex] Allergy Mild Rash Verified 10/10/17 13:31 Famotidine [From Pepcid AC] Allergy Mild Rash Verified 10/10/17 13:31 Fluticasone Allergy Mild Difficulty Verified 10/10/17 13:31 [From Advair Diskus] Breathing Iodinated Diagnostic Agents Allergy Mild Itching Verified 10/10/17 13:31 Moxifloxacin [From Avelox] Allergy Mild Hives Verified 10/10/17 13:31 Omeprazole [From Prilosec] Allergy Mild Rash Verified 10/10/17 13:31 Quinolones Allergy Mild Rash Verified 10/10/17 13:31 Salmeterol Allergy Mild Difficulty Verified 10/10/17 13:31 [From Advair Diskus] Breathing Sulfamethoxazole Allergy Mild Rash Verified 10/10/17 13:31 w/Trimethoprim [From Bactrim] Codeine Allergy Unknown Difficulty Verified 10/10/17 13:31 Breathing Doxycycline Allergy Unknown Rash Verified 10/10/17 13:31 Albuterol [From Ventolin] Allergy Difficulty Verified 10/10/17 13:31 Breathing Sertraline [From Zoloft] AdvReac Severe Hallucinati Verified 10/10/17 13:31 ons Buspirone [From Buspar] AdvReac Mild Dizziness Verified 10/10/17 13:31 Escitalopram [From Lexapro] AdvReac Unknown See Comment Verified 10/10/17 13:31 Citalopram [From Celexa] AdvReac See Comment Verified 10/10/17 13:31 Home Medications: Home Medications Oxymetazoline HCl [Afrin] 0.05 % NA PRN 10/10/17 [History] PMH/Surg Hx/FS Hx/Imm Hx Previously Healthy: Yes Endocrine History: Hyperthyroidism, Dyslipidemia Respiratory History: Asthma Other History Of: Negative For: HIV, Hepatitis B, Hepatitis C, Anticoagulant Therapy - Surgical History Surgical History: Yes Surgery Procedure, Year, and Place: RIGHT ELBOW RECONSTRUCTION SURGERY 1983,. SLEEP APNEA SURGERY 2010 - Tonsilectomy, uvula, stretching throat. CHOLECYSTECTOMY - 09/10/16. cicumcision with biopsy - Family History Known Family History: Positive: Cardiac Disease - two uncles in their 40s, no primary relatives, Hypertension, Diabetes, Other - TIA on paternal side, cancer on both sides, blood clots Family History: FHx of seasonal allergies - both parents - Social History Occupation: Employed Full-time Lives: With Family Alcohol Use: None Substance Use Type: None Substance Use Comment - Amount & Last Used: benzo's in the past Smoking Status (MU): Former Smoker Type: Cigarettes Amount Used/How Often: 1/2 ppd Length of Time of Smoking/Using Tobacco: 15 yrs Have You Smoked in the Last Year: No When Did the Patient Quit Smoking/Using Tobacco: 2016 Household Exposure Type: Cigarettes - Immunization History Most Recent Influenza Vaccination: fall 2015 Most Recent Tetanus Shot: utd Most Recent Pneumonia Vaccination: fall 2015 Review of Systems Constitutional: Negative Skin: Negative Eyes: Negative ENT: Sore Throat, Ear Ache, Nasal Discharge, Sinus Congestion, Sinus Pain/ Tenderness Respiratory: Cough - dry Cardiovascular: Negative Gastrointestinal: Negative Genitourinary: Negative Motor: Negative Neurovascular: Negative Musculoskeletal: Negative Neurological: Headache Psychological: Negative Is Patient Immunocompromised?: No All Other Systems Reviewed And Are Negative: Yes Physical Exam Triage Information Reviewed: Yes Vital Signs: Initial Vital Signs Temp 97.9 F 10/10/17 13:22 Pulse 62 10/10/17 13:22 Resp 14 10/10/17 13:22 BP 128/80 10/10/17 13:22 Pulse Ox 99 10/10/17 13:22 - Additional Comments Vitals: reviewed General: Well developed, well-nourished male patient with NAD. Head and face: Normocephalic and atraumatic, Positive tenderness over the frontal and maxillary sinuses.. Eyes: PERRLA, EOMI x 2. Normal conjunctiva. No eye discharge. ENT: Ears and TM with normal limits. Nose: with moderate yellowish discharge and erythematous mucosa. Pharynx with erythema, no exudate. Neck: Supple, no JVD, no carotid bruits and no lymphadenopathy. Lungs: clear, no rales, no rhonchi, no wheezes. CVS: RRR, S1 and S2 present no murmurs or gallops appreciated. Abdomen: soft nontender with positive bowel sounds. Extremities: no edema noted. Neuro: WNL. Skin: warm and dry UC Diagnostic Evaluation - Laboratory O2 Sat by Pulse Oximetry: 99 Respiratory Course/Dx - Course Course Of Treatment: 36 y/o male presents to the urgent care c/o chest congestion, sore throat for the past 4 days. Pt reports his Left ear started to hurt this morning. Pt reports symptoms started about 1 week ago with a common cold. Now nasal congestion is worse with green nasal discharge, PND and sinus pain and FOX. Pain is 5/10. He has taken tylenol to alleviate symptoms Denies fever, SOB, chest pain, abdominal pain, N/V/D. Hx obtained. Pt with a sinusitis on examination. Pt with 1 week of symptoms getting worse. Pt PNC allergic Rx Z- shant PO. Discharge instructions explained to Pt. Advised to Return to the clinic or PCP if symptoms do not improve.Pt understood and agreed with plan of care. - Differential Dx/Diagnosis Differential Diagnosis/HQI/PQRI: Asthma, Bronchitis, Influenza, Laryngitis, Lower Resp Infection, MRSA, Sinusitis Provider Diagnoses: 1- Acute bacterial sinusitis Discharge - Discharge Plan Condition: Stable Disposition: HOME Prescriptions: Azithromyxin SHANT (NF) [Z-Shant (Zithromax) 250 mg tabs #6] 2 tab PO .TODAY, THEN 1 DAILY #6 tab Patient Education Materials: Sinusitis (ED) Print Language: ROMANSH Referrals: [facility] [Outside] - 3 Days Additional Instructions: 1- Please increase fluid intake and rest. take full course of antibiotic to avoid resistance 2-Use saline drops to clear sinuses as directed 3-Take Sudafed or Claritin PO to alleviates sinus congestion 4-Return to the clinic or PCP if symptoms do not improve for further management and treatment
== END 2017-10-10 14:29 | disposition home or self-care (01) ==
LOC: UCEAST 13:11
DX: J01.90 Acute sinusitis, unspecified (principal); B96.89 Other specified bacterial agents as the cause of diseases classified elsewhere; Z87.891 Personal history of nicotine dependence
CPT/HCPCS: 99212; G0463

== ENCOUNTER 2017-10-27 23:22 | Emergency (ER) | payer OTHER ==
[2017-10-27 23:26] VITALS: BP 138/88
[2017-10-28] MEDS ORDERED: Acetaminophen TAB* 325 MG PO ONE (01:53)
--- NOTE | 2017-10-28 08:58 | RAD ---
Indication: Bilateral low back pain post fall yesterday. Comparison: September 19, 2017 CT. Technique: AP and lateral views lumbar sacral spine. Report: Alignment is anatomic. No cortical disruption or trabecular impaction to indicate a vertebral body fracture. Multilevel mild vertebral endplate osteophytosis. Moderate L4-L5 and L5-S1 disc space narrowing without significant change. Facet joint osteoarthritis most prominent at L4-L5 and L5-S1. Unremarkable paraspinal soft tissue contours. IMPRESSION: No traumatic lumbar sacral spine injury evident. Moderate degenerative spondylosis and facet joint osteoarthritis without significant change.
--- NOTE | 2017-11-02 00:27 | ED ---
Complex/Multi-Sys Presentation - HPI Summary HPI Summary: Pt here w/ low back pain and groin pain since falling while in shower today. Simply lost his footing and started to slip - tried to catch himself but couldn' t. Fell longterm out of the tub in a contorted fashion as he tried not to hit his head on the sink or toilet. Denies head or neck injury but thinks he pulled something in his back and B/L groin regions as he's sore in both places. Denies numbness, tingling, weakness, change in bowel/bladder habits since injury. 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 - History Of Current Complaint Chief Complaint: EDBackInjuryPain Time Seen by Provider: 10/28/17 01:11 Hx Obtained From: Patient - Allergies/Home Medications Allergies/Adverse Reactions: Allergies Allergy/AdvReac Type Severity Reaction Status Date / Time Bupropion [From Zyban] Allergy Severe Difficulty Verified 10/10/17 13:31 Breathing Penicillins Allergy Severe Rash Verified 10/10/17 13:31 Cephalexin [From Keflex] Allergy Mild Rash Verified 10/10/17 13:31 Famotidine [From Pepcid AC] Allergy Mild Rash Verified 10/10/17 13:31 Fluticasone Allergy Mild Difficulty Verified 10/10/17 13:31 [From Advair Diskus] Breathing Iodinated Diagnostic Agents Allergy Mild Itching Verified 10/10/17 13:31 Moxifloxacin [From Avelox] Allergy Mild Hives Verified 10/10/17 13:31 Omeprazole [From Prilosec] Allergy Mild Rash Verified 10/10/17 13:31 Quinolones Allergy Mild Rash Verified 10/10/17 13:31 Salmeterol Allergy Mild Difficulty Verified 10/10/17 13:31 [From Advair Diskus] Breathing Sulfamethoxazole Allergy Mild Rash Verified 10/10/17 13:31 w/Trimethoprim [From Bactrim] Codeine Allergy Unknown Difficulty Verified 10/10/17 13:31 Breathing Doxycycline Allergy Unknown Rash Verified 10/10/17 13:31 Albuterol [From Ventolin] Allergy Difficulty Verified 10/10/17 13:31 Breathing Sertraline [From Zoloft] AdvReac Severe Hallucinati Verified 10/10/17 13:31 ons Buspirone [From Buspar] AdvReac Mild Dizziness Verified 10/10/17 13:31 Escitalopram [From Lexapro] AdvReac Unknown See Comment Verified 10/10/17 13:31 Citalopram [From Celexa] AdvReac See Comment Verified 10/10/17 13:31 PMH/Surg Hx/FS Hx/Imm Hx Previously Healthy: Yes Endocrine/Hematology History: Reports: Hx Thyroid Disease - hypothyroid Denies: Hx Anticoagulant Therapy, Hx Diabetes Cardiovascular History: Denies: Hx Congestive Heart Failure, Hx Deep Vein Thrombosis, Hx Hypertension , Hx Myocardial Infarction, Hx Pacemaker/ICD Respiratory History: Reports: Hx Asthma, Hx Sleep Apnea - that was cured via surgery, Other Respiratory Problems/Disorders - pneumonia 2x Denies: Hx Chronic Obstructive Pulmonary Disease (COPD), Hx Lung Cancer, Hx Pneumonia, Hx Pulmonary Embolism GI History: Denies: Hx Gall Bladder Disease, Hx Gastrointestinal Bleed, Hx Ulcer, Hx Urosepsis History: Denies: Hx Kidney Stones, Hx Renal Disease Sensory History: Denies: Hx Contacts or Glasses, Hx Hearing Aid Opthamlomology History: Denies: Hx Contacts or Glasses Neurological History: Denies: Hx Dementia, Hx Migraine, Hx Seizures Psychiatric History: Reports: Hx Anxiety, Hx Panic Disorder - TO TAKE MEDICATION PRIOR TO MRI Denies: Hx Depression, Hx Schizophrenia, Hx Bipolar Disorder, Hx Substance Abuse - Surgical History Surgery Procedure, Year, and Place: RIGHT ELBOW RECONSTRUCTION SURGERY 1983,. SLEEP APNEA SURGERY 2010 - Tonsilectomy, uvula, stretching throat. CHOLECYSTECTOMY - 09/10/16. cicumcision with biopsy - Immunization History Date of Tetanus Vaccine: unknown Date of Influenza Vaccine: 07/12/15 Infectious Disease History: No Infectious Disease History: Denies: Hx Clostridium Difficile, Hx Hepatitis, Hx Human Immunodeficiency Virus (HIV), Hx of Known/Suspected MRSA, Hx Shingles, Hx Tuberculosis, Hx Known/ Suspected VRE, Hx Known/Suspected VRSA, History Other Infectious Disease, Traveled Outside the [place] in Last 30 Days - Family History Known Family History: Positive: Cardiac Disease - two uncles in their 40s, no primary relatives, Hypertension, Diabetes, Other - TIA on paternal side, cancer on both sides, blood clots Family History: FHx of seasonal allergies - both parents - Social History Occupation: Employed Full-time - [employer] Lives: With Family Alcohol Use: None Hx Substance Use: Yes Substance Use Type: Reports: None Substance Use Comment - Amount & Last Used: benzo's in the past Hx Tobacco Use: Yes Smoking Status (MU): Former Smoker Type: Cigarettes Amount Used/How Often: 1/2 ppd Length of Time of Smoking/Using Tobacco: 15 yrs Have You Smoked in the Last Year: No Review of Systems Constitutional: Negative Negative: Fatigue Eyes: Negative Negative: Photophobia, Blurred Vision, Diplopia ENT: Negative Negative: Dental Pain Cardiovascular: Negative Negative: Chest Pain Respiratory: Negative Negative: Shortness Of Breath Gastrointestinal: Negative Negative: Vomiting, Nausea Positive: no symptoms reported. Negative: incontinence Positive: Arthralgia, Myalgia, Decreased ROM - lumbar movements and hip stretches produce soreness but he is able to move. Negative: Edema Skin: Negative Negative: Bruising Neurological: Negative Negative: Headache, Weakness, Paresthesia, Numbness, Syncope, Slurred Speech Positive: Anxious All Other Systems Reviewed And Are Negative: Yes Physical Exam Triage Information Reviewed: Yes Vital Signs On Initial Exam: Initial Vitals Temp Pulse Resp BP Pulse Ox 98.2 F 98 16 138/88 96 10/27/17 23:23 10/27/17 23:23 10/27/17 23:23 10/27/17 23:23 10/27/17 23:23 Vital Signs Reviewed: Yes Appearance: Positive: Well-Appearing, No Pain Distress - at rest, Obese Skin: Positive: Warm, Dry - no erythema, no ecchymosis Head/Face: Positive: Normal Head/Face Inspection Eyes: Positive: Normal, EOMI, GABINO - no photophobia ENT: Positive: Normal ENT inspection, Hearing grossly normal, Pharynx normal. Negative: Nasal drainage - lips are dry Neck: Positive: Supple, Nontender Respiratory/Lung Sounds: Positive: Breath Sounds Present Cardiovascular: Positive: Normal, Pulses are Symmetrical in both Upper and Lower Extremities Abdomen Description: Positive: Nontender, Soft Bowel Sounds: Positive: Present Male Genital Exam: Positive: normal genitalia Musculoskeletal: Positive: Strength/ROM Intact - pt can stand independently on single leg B/L w/ FROM - has some pulling soreness w/ abduction of both leg movements; strength intact, Pain @ - Lumbar region w/ mild TTP Neurological: Positive: Normal, Sensory/Motor Intact, Alert, Oriented to Person Place, Time, CN Intact II-III Psychiatric: Positive: Anxious Diagnostics - Vital Signs Vital Signs Temp Pulse Resp BP Pulse Ox 10/28/17 02:53 98.2 F 98 16 138/88 98 10/27/17 23:23 98.2 F 98 16 138/88 96 - Laboratory Diagnostic Studies Comment: Lumbar XR: no acute findings Lab Statement: Any lab studies that have been ordered have been reviewed, and results considered in the medical decision making process. Complex Multi-Symp Course/Dx Course Of Treatment: Pt appears to have muscle strains d/t near fall/fall earlier today. He was able to bear weight and ambulate w/o difficulty throughout his work shift after injury. Lumbar XR neg for acute pathology and B/ L groin muscles are strained from incident. Advised rest, ice, ibuprofen with food alternating with acetaminophen and gentle stretches to prevent stiffness. Advised to f/u w/ PCP but return to ED if danger s/sx present. Offered out of work tomorrow d/t injuries and nature of his job however pt declines. Pt agrees w/ plan. - Diagnoses Provider Diagnoses: Fall in (into) shower or empty bathtub, initial encounter, Lumbar strain, Strain of groin Discharge - Discharge Plan Condition: Stable Disposition: HOME Prescriptions: Ibuprofen TAB* [Motrin TAB* 600 MG] 600 mg PO Q6H PRN #20 tab PRN Reason: Pain Patient Education Materials: Low Back Strain (ED), Groin Strain (ED), Fall Prevention (ED) Forms: *Work Release Referrals: Shad Uriostegui MD [Primary Care Provider] - Additional Instructions: Rest, alternate ice with heat - gentle stretches Continue ibuprofen with food alternating with acetaminophen Follow-up with PCP this week if pain is same or worse - otherwise, it will take time to heal so soreness is to be expected. *If you develop numbness, tingling, weakness, inability to bear weight, change in bowel/bladder habits, return to the ED
== END 2017-10-28 02:54 | disposition home or self-care (01) ==
LOC: ED 23:22
DX: S39.012A Strain of muscle, fascia and tendon of lower back, initial encounter (principal); S39.011A Strain of muscle, fascia and tendon of abdomen, initial encounter; M54.5 Low back pain; Z87.891 Personal history of nicotine dependence; W18.2XXA Fall in (into) shower or empty bathtub, initial encounter; Y92.89 Other specified places as the place of occurrence of the external cause
CPT/HCPCS: 72100; 99281; A9270-GY

== ENCOUNTER 2018-01-17 14:43 | Emergency (ER) | payer OTHER ==
[2018-01-17 15:04] VITALS: BP 122/80
--- NOTE | 2018-01-17 15:44 | RAD ---
Indication: Cough. 2 views of the chest demonstrates no mediastinal shift. Heart is of normal size and configuration. Lung sandoval are clear. When compared to previous exam of August 27, 2017 no significant change is noted. IMPRESSION: No active cardiopulmonary disease is noted.
--- NOTE | 2018-01-17 21:32 | UC ---
Dale Weinberg Nikita, scribed for Claude Doshi MD on 01/17/18 at 1512 . Respiratory Complaint HPI - HPI Summary HPI Summary: This patient is a 37 year old M presenting to [facility] with a chief complaint of chest congestion and productive cough with yellow sputum since a couple days ago. The patient rates the pain 0/10 in severity. Symptoms aggravated by nothing. Symptoms alleviated by nothing. Patient reports sore throat. Patient denies fever, N/V/D, and nasal congestion. - History of Current Complaint Chief Complaint: UCRespiratory Stated Complaint: COUGH,CONGESTED Time Seen by Provider: 01/17/18 14:44 Hx Obtained From: Patient Onset/Duration: Sudden Onset, Lasting Days, Still Present Timing: Constant Severity Currently: None Pain Intensity: 0 Pain Scale Used: 0-10 Numeric Character: Cough: Productive - yellow sputum Aggravating Factors: Nothing Alleviating Factors: Nothing Associated Signs And Symptoms: Negative: Nasal Congestion - Patient reports sore throat. Patient denies fever, N/V/D, and nasal congestion. - Allergies/Home Medications Allergies/Adverse Reactions: Allergies Allergy/AdvReac Type Severity Reaction Status Date / Time MS Bupropion [From Zyban] Allergy Severe Difficulty Verified 01/17/18 14:57 Breathing MS Penicillins [Penicillins] Allergy Severe Rash Verified 01/17/18 14:57 MS Cephalexin [From Keflex] Allergy Mild Rash Verified 01/17/18 14:57 MS Famotidine Allergy Mild Rash Verified 01/17/18 14:57 [From Pepcid AC] MS Fluticasone Allergy Mild Difficulty Verified 01/17/18 14:57 [From Advair Diskus] Breathing MS Iodinated Diagnostic Allergy Mild Itching Verified 01/17/18 14:57 Agents [Iodinated Diagnostic Agents] MS Moxifloxacin [From Avelox] Allergy Mild Hives Verified 01/17/18 14:57 MS Omeprazole [From Prilosec] Allergy Mild Rash Verified 01/17/18 14:57 MS Quinolones [Quinolones] Allergy Mild Rash Verified 01/17/18 14:57 MS Salmeterol Allergy Mild Difficulty Verified 01/17/18 14:57 [From Advair Diskus] Breathing MS Sulfamethoxazole Allergy Mild Rash Verified 01/17/18 14:57 w/Trimethoprim [From Bactrim] MS Codeine [Codeine] Allergy Unknown Difficulty Verified 01/17/18 14:57 Breathing MS Doxycycline [Doxycycline] Allergy Unknown Rash Verified 01/17/18 14:57 MS Albuterol [From Ventolin] Allergy Difficulty Verified 01/17/18 14:57 Breathing MS Sertraline [From Zoloft] AdvReac Severe Hallucinati Verified 01/17/18 14:57 ons MS Buspirone [From Buspar] AdvReac Mild Dizziness Verified 01/17/18 14:57 MS Escitalopram AdvReac Unknown See Comment Verified 01/17/18 14:57 [From Lexapro] MS Citalopram [From Celexa] AdvReac See Comment Verified 01/17/18 14:57 PMH/Surg Hx/FS Hx/Imm Hx Endocrine History: Hypothyroidism, Other Other Endocrine History: HLD Respiratory History: Asthma, Pneumonia Psychological History: Anxiety Other History Of: Negative For: HIV, Hepatitis B, Hepatitis C, Anticoagulant Therapy - Surgical History Surgical History: Yes Surgery Procedure, Year, and Place: RIGHT ELBOW RECONSTRUCTION SURGERY 1983,. SLEEP APNEA SURGERY 2010 - Tonsilectomy, uvula, stretching throat. CHOLECYSTECTOMY - 09/10/16. cicumcision with biopsy. R carpal tunnel 2018 - Family History Known Family History: Positive: Cardiac Disease - two uncles in their 40s, no primary relatives, Hypertension, Diabetes, Other - TIA on paternal side, cancer on both sides, blood clots Family History: FHx of seasonal allergies - both parents - Social History Alcohol Use: None Substance Use Type: None Substance Use Comment - Amount & Last Used: benzo's in the past Smoking Status (MU): Former Smoker Type: Cigarettes Amount Used/How Often: 1/2 ppd Length of Time of Smoking/Using Tobacco: 15 yrs Have You Smoked in the Last Year: No When Did the Patient Quit Smoking/Using Tobacco: 2016 Household Exposure Type: Cigarettes - Immunization History Most Recent Influenza Vaccination: fall 2015 Most Recent Tetanus Shot: utd Most Recent Pneumonia Vaccination: fall 2015 Review of Systems Constitutional: Other - no fever ENT: Sore Throat, Other - chest congestion; denies nasal congestion Respiratory: Cough - productive cough with yellow sputum Gastrointestinal: Other - denies N/V/D All Other Systems Reviewed And Are Negative: Yes Physical Exam - Summary Physical Exam Summary: VITAL SIGNS: Reviewed. GENERAL: ~Patient is a well-developed and nourished MALE who is lying comfortable in the stretcher. ~Patient is not in any acute respiratory distress. HEAD AND FACE: Normocephalic EYES: PERRLA, EOMI x 2. EARS: Hearing grossly intact. MOUTH: Oropharynx within normal limits. NECK: Supple, trachea is midline, no adenopathy, no JVD, no carotid bruit. CHEST: Symmetric, no tenderness at palpation LUNGS: Clear to auscultation bilaterally. No wheezing or crackles. CVS: Regular rate and rhythm, S1 and S2 present, no murmurs or gallops appreciated. ABDOMEN: Soft, non-tender. Bowel sounds are normal. No abdominal abnormal pulsations. EXTREMITIES: Full ROM in all major joints, no edema, no cyanosis or clubbing. NEURO: Alert and oriented x 3. No acute neurological deficits. Speech is normal and follows commands. SKIN: Dry and warm Triage Information Reviewed: Yes Vital Signs: Initial Vital Signs Temp 98.5 F 01/17/18 14:59 Pulse 70 01/17/18 14:59 Resp 18 01/17/18 14:59 BP 122/80 01/17/18 14:59 Pulse Ox 99 01/17/18 14:59 Diagnostic Evaluation - Laboratory O2 Sat by Pulse Oximetry: 99 - Radiology Radiology Interpretation Completed By: Radiologist - CXR reveals no active cardiopulmonary disease is noted. [facility] physician has reviewed this radiology report. Respiratory Course/Dx - Course Course Of Treatment: CXR reveals no active cardiopulmonary disease is noted. [facility] physician has reviewed this radiology report. I discussed all the findings and test results with the patient. Patient was instructed to return to the urgent care or go to ER immediately if any of the symptoms return or worsens. Plan of care was discussed with the patient, and patient understands and agrees. All questions were answered to patient satisfaction. There were no further complaints or concerns. - Differential Dx/Diagnosis Differential Diagnosis/HQI/PQRI: Other - URI Provider Diagnoses: URI Discharge - Sign-Out/Discharge Documenting (check all that apply): Discharge - Discharge Plan Condition: Stable Disposition: HOME Prescriptions: Benzonatate CAP* [Tessalon 100 MG CAP*] 100 mg PO TID PRN #12 cap PRN Reason: Cough Patient Education Materials: Antitussives (By mouth), Upper Respiratory Infection (DC) Referrals: Shad Uriostegui MD [Primary Care Provider] - Additional Instructions: Take medications as instructed Increase your fluid intake Return to the UC if symptoms worsen The documentation as recorded by the Dale castillo Nikita accurately reflects the service I personally performed and the decisions made by me, Claude Doshi MD.
== END 2018-01-17 15:48 | disposition home or self-care (01) ==
LOC: UCEAST 14:43
DX: J06.9 Acute upper respiratory infection, unspecified (principal); E03.9 Hypothyroidism, unspecified; E78.5 Hyperlipidemia, unspecified; J45.909 Unspecified asthma, uncomplicated; F41.9 Anxiety disorder, unspecified; Z88.0 Allergy status to penicillin; Z88.2 Allergy status to sulfonamides; Z88.8 Allergy status to other drugs, medicaments and biological substances; Z88.1 Allergy status to other antibiotic agents; Z91.041 Radiographic dye allergy status; Z87.891 Personal history of nicotine dependence
CPT/HCPCS: 71046; 87502; 99212; G0463

== ENCOUNTER 2018-01-30 12:06 | Emergency (ER) | payer OTHER ==
--- OUTSIDE RECORDS SUMMARY | 2018-01-30 12:15 | XMS REPORT ---
:1980 External Reference #:[id number] Author Organization [facility] Address [address] [address] Phone [phone] Care Team Providers Name Role Phone Shad Uriostegui MD Primary Care Physician Unavailable Payers Type Date Identification Numbers Payment Provider Subscriber Commercial Effective: Policy Number: Lifetime Benefit Amanda Napier 2016 [id number] Solution Expires: 2016 PayID: [id number] [address] [place] [address] Commercial Policy Number: [id number] Joshua Napier Group Number: [id number] [address] PayID: [id number] [place] [address] Problems Date Description Provider Status Onset: 06/13/2010 Hypothyroidism Arsh Baird M.D. Active Onset: 06/13/2010 Allergy Kahlil Montgomery M.D. Active Onset: 06/13/2010 Pure hypercholesterolemia Kahlil Montgomery M.D. Active Onset: 06/13/2010 Sleep disorder Elaine Colin M.D. Active Onset: 06/13/2010 Anxiety state Elaine Colin M.D. Active Onset: 08/01/2011 Carpal tunnel syndrome Arsh Baird M.D. Active Onset: 01/01/2012 Spermatocele Arsh Baird M.D. Active Onset: 01/01/2012 Neuralgia Neuritis & Radiculitis Arsh Baird M.D. Active Unspec Onset: 01/01/2012 Hyperlipidemia Arsh Baird M.D. Active Onset: 01/08/2012 Lymphadenopathy Arsh Baird M.D. Active Onset: 01/15/2012 Arthralgia of the pelvic region and Arsh Baird M.D. Active thigh Onset: 02/25/2012 Gastroesophageal reflux disease Arsh Baird M.D. Active Onset: 02/25/2012 Mixed hyperlipidemia Arsh Baird M.D. Active Onset: 02/25/2012 Asthma without status asthmaticus Arsh Baird M.D. Active Onset: 02/25/2012 Hypothyroidism Arsh Baird M.D. Active Onset: 03/04/2012 Prostatitis Arsh Baird M.D. Active Onset: 03/04/2012 Benign localized hyperplasia of Arsh Baird M.D. 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 he is straight. Allergies, Adverse Reactions, Alerts Date Description Reaction Status Severity Comments 12/16/2009 Keflex active 12/16/2009 Zyban active 12/16/2009 Advair Diskus active 12/16/2009 Prednisone active 12/16/2009 Xanax active 12/19/2009 Codeine nauseated, lightheadedness active 01/31/2010 Avelox rash active 06/13/2010 Quinolones active 06/13/2010 Lexapro active 06/13/2010 active 06/13/2010 Prilosec active 06/13/2010 Pepcid active 02/15/2012 Penicillin sob, rash active 02/15/2012 Levaquin sob, rash active 04/06/2016 Zoloft active 06/15/2016 Sulfa Antibiotics Rash active Rash 06/18/2016 Bactrim active rash 08/14/2017 Ventolin Made breathing worse active 08/14/2017 Flovent Made breathing worse active 08/16/2017 Biaxin active Medications Medication Date Status Form Strength Qnty SIG Indications Ordering Provider Asmanex HFA 08/16 Active Aerosol 100mcg/Ac 26uni 2 puff J45.909 Kari /2017 t ts twice a day MD Camila (not currently taking) Proair HFA 06/08 Active Aerosol 108(90Bas 25.5g 1 to 2 J45.30 e) m inhalations MD Camila mcg/Act every 4 hours as needed Levothyroxine Active Tablets 150mcg 1 by mouth Unknown Sodium /0000 every day Klonopin Active Tablets 3mg 1 tabs po Unknown /0000 daily Atorvastatin Active Tablets 40mg 1 by mouth Unknown Calcium /0000 every day Flovent HFA 08/22 Hx Aerosol 110mcg/Ac 24gm 2 puffs /2016 t twice a day MD Camila - 09/12 Nitrofurantoin 06/13 Hx Capsules 100mg 14cap 1 by mouth N39.0 Lesley Monohyd Macro s twice a day Varn, N.P. - for 7 days 06/20 Prednisone 06/08 Hx Tablets 10mg 14tab take 3 J45.30 s daily for 3 Varn, N.P. - days, take 06/11 2 tablets /2015 for 2 days, then 1 tablet for 1 day Pulmicort 06/06 Hx Aerosol 180mcg/Ac 1unit 2 puffs J45.30 Lesley Flexhaler /2015 t s twice daily Varn, N.P. - 05/21 Qvar 06/05 Hx Aerosol 40mcg/Act 8.700 2 puff Francisco /2015 gm twice a day Mely Gonzalez M.D.,FACP 06/06 Diclofenac 05/31 Hx Gel 1% 100gm Apply to M89.8x8 David Sodium affected JACQUELINE [place] - area twice 06/17 daily /2015 Flomax 03/04 Hx Capsules 0.4mg 30cap 1 po qd at 600.20 Ozone /2011 s 6pm Mely Baird M.D. 04/06 Albuterol 02/24 Hx Nebulizer 0.63mg/3M 120un four times J45.909 David Sulfate L its a day as JACQUELINE [place] - needed 05/21 Nexium 01/[address] 40mg 20cap 1 po qd 530.81 Karly /2011 Mely Oliva M.D. 04/06 Naprosyn 01/23 Hx Tablets 500mg 60tab one twice a s day with Cuauhtemoc, Mely food M.DNatalie 02/24 Celebrex 01/14 Hx Capsules 200mg 2box 1 po qd 719.45 Mely Leo M.D. 03/04 Tums E-X 750 11/01 Hx Chewtabs 750mg 1 daily Mely Leo M.D. 04/17 Azithromycin 11/01 Hx Tablets 250mg 6tabs take 2 tab 461.9 on day 1 Felipa, - then 1 tab M.D. 12/31 daily x days Medrol Dosepak 11/01 Hx Tablets 4mg 1tabs as directed 786.2 on the edmund Mely Leo M.D. 01/27 Zithromax Z-Edmund 01/03 Hx Tablets 250mg 1tabs 2tab today 461.9 Claude E. and 1tab Rose, - daily x M.D. 11/01 4d Celebrex 01/03 Hx Capsules 200mg 30cap 1 po qd 724.2 Mely Meyer M.D. 02/26 Zithromax Z-Edmund 12/05 Hx Tablets 250mg 1tabs 2tab today 244.8 and 1tab Oli, - daily x M.D. 12/15 4d Zithromax Z-Edmund 11/29 Hx Tablets 250mg 1tabs 2tab today 466.0 and 1tab Pachika, - daily x M.D. 12/05 4d Celebrex 10/17 Hx Capsules 200mg 30cap 1 po qd 722.91 Mely Meyer M.D. 02/26 Off Work For 08/11 Hx 722.0 Claude Rodriguez Mely Rose M.D. 10/03 Celebrex 08/04 Hx Capsules 200mg 40cap 1 po bid 722.0 Francisco Mely Whittaker M.D.,[facility] 10/03 Azithromycin 08/04 Hx Tablets 250mg 6tabs 2 tabs po 493.00 Francisco on day 1; 1 Syed Mcdonald, - tab po qd M.DNatalie,[facility] 08/07 on days 2- Zithromax Z-Edmund 07/24 Hx Tablets 250mg 1tabs 2tab today 466.0 and 1tab Sherronika, - daily x M.D. 08/04 4d Levothyroxine 06/13 Hx Tablets 75mcg 30tab 1 by mouth Laz Sodium s every day [place]nut - M.D. 05/21 Zithromax Z-Edmund 06/13 Hx Tablets 250mg 6tabs 2tab today 466.0 and 1tab Sherronika, - daily x M.D. 06/28 4d Sudafed 12 Hour 01/20 Hx Tablets ER 120mg 995.3 12HR Valentina - M.DNatalie 01/20 Ibuprofen 01/17 Hx Capsules 200mg 30cap one or two 789.01 s every six Valentina, - hours as M.D. 06/13 needed Peak Flow Meter 01/16 Hx 1unit use as s directed Valentina - M.DNatalie 05/21 Levothyroxine 01/16 Hx Tablets 88mcg po qam Murli Sodium Valentina, - M.D. 06/13 Nasonex 01/13 Hx Suspension 50mcg/Act 1mont 2 sprays auguste each Valentina, - nostril M.D. 03/04 Vitamin D 01/10 Hx Capsules 15586Mgwa 3caps every four 272.0 Murli (Ergocalciferol /2009 weeks for 3 Valentina, ) - months. M.D. 06/13 Flonase 01/10 Hx Suspension 50mcg/Act 1Bott 1 272.0 le intranasal Valentina, - puff to M.D. 01/10 nostril daily Astelin 01/10 Hx Solution 137mcg/Sp 30ml two spray 272.0 Murli ray each Valentina, - nostril M.D. 06/13 once a day. Azithromycin 12/23 Hx Tablets 250mg 6tabs 2 tabs po 463 Elaine on day 1; 1 Cotton, - tab po qd M.D. 01/03 on days 2- Klonopin 12/16 Hx Tablets 1mg 60tab 1.5 mg po Ozone /2009 s bid Sherronika, - M.D. 05/21 Levothyroxine 12/16 Hx Tablets 100mcg 90tab take 1 Elaine Sodium s tablet by Cotton, - mouth 6 M.D. 01/16 days/ week Albuterol 12/16 Hx 1unit 2 puffs up Elaine Inhaler s to qid prn Cristi - M.D. 04/06 Fluticasone 12/16 Hx Suspension 50mcg/Act 16gm 2 477.9 Elaine Propionate intranasal Cotton, - puffs qd M.D. 01/03 Neurontin Hx Capsules 500mg 2 PO in am Unknown /0000 - 04/06 Azithromycin Hx Tablets 250mg 6tabs two tabs Unknown /0000 day one, - one daily 01/27 till Zithromax Hx Tablets 250mg 5tabs 2 qd x Unknown /0000 10 - 02/24 Tylenol Hx Capsules 500mg/15M 6-8 tablets Unknown /0000 L daily prn - 04/06 Proair HFA Hx Aerosol 108(90Bas 2 puffs by Unknown /0000 e) mouth every mcg/Act 4 hours as needed Ventolin HFA Hx Aerosol 108(90Bas 2 puffs by Unknown /0000 e) mouth four - mcg/Act times a day 06/11 as needed Sulfamethoxazol Hx Tablets 800-160mg Unknown e/Trimethoprim /0000 DS - 06/13 Azithromycin Hx Tablets 250mg Unknown /0000 - 05/21 Gabapentin Hx Capsules 300mg 1 by mouth Unknown /0000 tid - 01/27 Metamucil Hx Powder 1 cap by Unknown /0000 mouth twice - a day with 08/15 Immunizations CPT Code Status Date Vaccine Lot # [id number] Given 08/06/2016 Influenza Virus 3Yrs & Over [id number] Given 09/27/2010 Influenza Virus 3Yrs & Over [id number] Vital Signs Date Vital Result Comment 01/28/2018 Height 70 inches 5'10" Weight 249.00 lb Heart Rate 76 /min BP Systolic Sitting 112 mmHg BP Diastolic Sitting 80 mmHg Respiratory Rate 14 /min O2 % BldC Oximetry 96 % BMI (Body Mass Index) 35.7 kg/m2 09/13/2017 Height 70 inches 5'10" Weight 263.00 lb Heart Rate 56 /min BP Systolic Sitting 118 mmHg BP Diastolic Sitting 72 mmHg Respiratory Rate 14 /min O2 % BldC Oximetry 98 % BMI (Body Mass Index) 37.7 kg/m2 08/16/2017 Height 70 inches 5'10" Weight 274.00 lb Heart Rate 68 /min BP Systolic Sitting 130 mmHg BP Diastolic Sitting 86 mmHg Respiratory Rate 14 /min O2 % BldC Oximetry 99 % BMI (Body Mass Index) 39.3 kg/m2 08/14/2017 Height 70 inches 5'10" Weight 275.25 lb with shoes Heart Rate 104 /min BP Systolic Sitting 132 mmHg Lue large cuff BP Diastolic Sitting 86 mmHg Lue large cuff Respiratory Rate 16 /min O2 % BldC Oximetry 96 % BMI (Body Mass Index) 39.5 kg/m2 05/22/2017 Height 70 inches 5'10" Weight 276.00 lb Heart Rate 94 /min BP Systolic Sitting 126 mmHg BP Diastolic Sitting 84 mmHg Respiratory Rate 20 /min O2 % BldC Oximetry 98 % room air BMI (Body Mass Index) 39.6 kg/m2 Neck Circumference in inches 18 06/26/2016 Weight 218.00 lb Heart Rate 63 /min BP Systolic Sitting 111 mmHg BP Diastolic Sitting 69 mmHg Respiratory Rate 15 /min Body Temperature 97.9 F O2 % BldC Oximetry 98 % 06/18/2016 Heart Rate 65 /min BP Systolic Sitting 125 mmHg BP Diastolic Sitting 82 mmHg O2 % BldC Oximetry 97 % 06/13/2016 Weight 215.00 lb Heart Rate 78 /min BP Systolic Sitting 126 mmHg BP Diastolic Sitting 84 mmHg Respiratory Rate 15 /min Body Temperature 98.5 F O2 % BldC Oximetry 98 % 06/11/2016 Weight 219.00 lb Heart Rate 62 /min BP Systolic Sitting 122 mmHg BP Diastolic Sitting 86 mmHg Body Temperature 97.9 F O2 % BldC Oximetry 98 % 06/08/2016 Heart Rate 62 /min BP Systolic Sitting 105 mmHg BP Diastolic Sitting 64 mmHg O2 % BldC Oximetry 97 % 06/06/2016 Heart Rate 80 /min BP Systolic Sitting 111 mmHg BP Diastolic Sitting 71 mmHg Body Temperature 97.8 F O2 % BldC Oximetry 97 % 05/31/2016 Weight 218.75 lb Heart Rate 81 /min BP Systolic Sitting 111 mmHg BP Diastolic Sitting 67 mmHg O2 % BldC Oximetry 97 % 04/17/2016 Height 68.5 inches 5'8.50" Weight 218.12 lb Heart Rate 64 /min BP Systolic Sitting 129 mmHg BP Diastolic Sitting 78 mmHg Body Temperature 97.7 F O2 % BldC Oximetry 98 % BMI (Body Mass Index) 32.7 kg/m2 04/06/2016 Height 68.5 inches 5'8.50" Weight 219.00 lb Heart Rate 82 /min BP Systolic Sitting 128 mmHg BP Diastolic Sitting 92 mmHg Respiratory Rate 14 /min Body Temperature 98.5 F O2 % BldC Oximetry 98 % BMI (Body Mass Index) 32.8 kg/m2 03/11/2012 Height 69.5 inches 5'9.50" Weight 190.00 lb Heart Rate 74 /min BP Systolic Sitting 110 mmHg BP Diastolic Sitting 68 mmHg Body Temperature 98.1 F rt ear BMI (Body Mass Index) 27.7 kg/m2 03/04/2012 Height 69.5 inches 5'9.50" Weight 189.00 lb Heart Rate 56 /min BP Systolic Sitting 100 mmHg BP Diastolic Sitting 68 mmHg Body Temperature 98.0 F BMI (Body Mass Index) 27.5 kg/m2 02/25/2012 Height 69.5 inches 5'9.50" Weight 178.00 lb Heart Rate 63 /min BP Systolic Sitting 102 mmHg BP Diastolic Sitting 78 mmHg BMI (Body Mass Index) 25.9 kg/m2 02/15/2012 Height 69.5 inches 5'9.50" Weight 178.00 lb Heart Rate 104 /min BP Systolic Sitting 100 mmHg BP Diastolic Sitting 88 mmHg Body Temperature 98.4 F BMI (Body Mass Index) 25.9 kg/m2 01/31/2012 Height 69.5 inches 5'9.50" Weight 183.00 lb BP Systolic Sitting 118 mmHg L BP Diastolic Sitting 70 mmHg L Body Temperature 98.0 F BMI (Body Mass Index) 26.6 kg/m2 01/28/2012 Height 69.5 inches 5'9.50" Weight 188.00 lb Heart Rate 64 /min BP Systolic Sitting 108 mmHg L BP Diastolic Sitting 60 mmHg L Body Temperature 97.9 F BMI (Body Mass Index) 27.4 kg/m2 01/15/2012 Height 69.5 inches 5'9.50" Weight 190.00 lb Heart Rate 64 /min BP Systolic Sitting 110 mmHg BP Diastolic Sitting 70 mmHg BMI (Body Mass Index) 27.7 kg/m2 01/08/2012 Height 69.5 inches 5'9.50" Weight 193.00 lb Heart Rate 76 /min BP Systolic Sitting 124 mmHg BP Diastolic Sitting 90 mmHg BMI (Body Mass Index) 28.1 kg/m2 01/01/2012 Height 69.5 inches 5'9.50" Weight 198.00 lb Heart Rate 74 /min BP Systolic Sitting 132 mmHg L BP Diastolic Sitting 72 mmHg L Body Temperature 97.5 F BMI (Body Mass Index) 28.8 kg/m2 11/01/2011 Height 69.5 inches 5'9.50" Weight 187.75 lb Heart Rate 92 /min BP Systolic Sitting 110 mmHg BP Diastolic Sitting 62 mmHg Body Temperature 98.1 F BMI (Body Mass Index) 27.3 kg/m2 08/09/2011 Height 70 inches 5'10" Weight 186.00 lb Heart Rate 73 /min BP Systolic 125 mmHg BP Diastolic 75 mmHg Body Temperature 98.1 F BMI (Body Mass Index) 26.7 kg/m2 08/01/2011 Height 70 inches 5'10" Weight 193.00 lb Heart Rate 60 /min BP Systolic Sitting 120 mmHg BP Diastolic Sitting 80 mmHg BMI (Body Mass Index) 27.7 kg/m2 06/18/2011 Height 70 inches 5'10" Weight 199.00 lb Heart Rate 78 /min BP Systolic Sitting 108 mmHg BP Diastolic Sitting 70 mmHg BMI (Body Mass Index) 28.6 kg/m2 05/31/2011 Weight 205.00 lb Heart Rate 64 /min BP Systolic Sitting 110 mmHg BP Diastolic Sitting 80 mmHg 03/08/2011 Weight 256.00 lb Heart Rate 76 /min BP Systolic Sitting 120 mmHg BP Diastolic Sitting 82 mmHg 02/26/2011 Height 70 inches 5'10" Weight 256.00 lb Heart Rate 82 /min BP Systolic Sitting 130 mmHg BP Diastolic Sitting 80 mmHg BMI (Body Mass Index) 36.7 kg/m2 01/03/2011 Heart Rate 96 /min BP Systolic Sitting 134 mmHg BP Diastolic Sitting 88 mmHg 12/15/2010 Weight 259.00 lb Heart Rate 87 /min BP Systolic Sitting 124 mmHg BP Diastolic Sitting 90 mmHg Body Temperature 96.8 F tympanically O2 % BldC Oximetry 95 % 12/05/2010 Heart Rate 91 /min BP Systolic Sitting 132 mmHg BP Diastolic Sitting 84 mmHg O2 % BldC Oximetry 96 % 11/29/2010 Weight 256.00 lb Heart Rate 85 /min BP Systolic Sitting 132 mmHg BP Diastolic Sitting 82 mmHg Body Temperature 96.5 F O2 % BldC Oximetry 95 % 11/07/2010 Weight 259.00 lb Heart Rate 75 /min BP Systolic Sitting 122 mmHg BP Diastolic Sitting 84 mmHg O2 % BldC Oximetry 95 % 10/30/2010 Heart Rate 105 /min BP Systolic Sitting 140 mmHg BP Diastolic Sitting 80 mmHg Body Temperature 97.9 F 10/17/2010 Weight 250.00 lb Heart Rate 78 /min BP Systolic Sitting 122 mmHg BP Diastolic Sitting 88 mmHg 10/02/2010 Weight 248.00 lb Heart Rate 75 /min BP Systolic Sitting 130 mmHg BP Diastolic Sitting 80 mmHg O2 % BldC Oximetry 97 % 09/18/2010 Weight 250.00 lb Heart Rate 100 /min BP Systolic Sitting 134 mmHg BP Diastolic Sitting 82 mmHg 09/06/2010 Weight 248.00 lb Heart Rate 84 /min BP Systolic Sitting 120 mmHg BP Diastolic Sitting 90 mmHg 08/28/2010 Weight 247.00 lb Heart Rate 72 /min BP Systolic Sitting 124 mmHg BP Diastolic Sitting 80 mmHg 08/11/2010 Weight 239.00 lb Heart Rate 74 /min BP Systolic Sitting 130 mmHg BP Diastolic Sitting 80 mmHg 08/07/2010 Weight 239.00 lb Heart Rate 98 /min BP Systolic Sitting 120 mmHg BP Diastolic Sitting 80 mmHg 08/04/2010 Weight 239.00 lb Heart Rate 80 /min BP Systolic Sitting 120 mmHg BP Diastolic Sitting 80 mmHg O2 % BldC Oximetry 98 % 07/31/2010 Weight 239.00 lb Heart Rate 82 /min BP Systolic Sitting 120 mmHg BP Diastolic Sitting 90 mmHg 07/24/2010 Weight 238.00 lb 07/18/2010 Weight 237.00 lb Heart Rate 76 /min BP Systolic Sitting 120 mmHg BP Diastolic Sitting 88 mmHg 06/28/2010 Weight 240.00 lb Heart Rate 78 /min BP Systolic Sitting 138 mmHg BP Diastolic Sitting 80 mmHg 06/21/2010 Weight 240.00 lb Heart Rate 97 /min BP Systolic Sitting 120 mmHg BP Diastolic Sitting 82 mmHg Body Temperature 97.3 F 06/13/2010 Height 70 inches 5'10" Weight 236.00 lb Heart Rate 86 /min BP Systolic Sitting 130 mmHg BP Diastolic Sitting 90 mmHg Body Temperature 96.8 F O2 % BldC Oximetry 97 % BMI (Body Mass Index) 33.9 kg/m2 01/31/2010 Height 70 inches 5'10" Weight 247.75 lb Heart Rate 84 /min BP Systolic Sitting 120 mmHg BP Diastolic Sitting 80 mmHg BMI (Body Mass Index) 35.5 kg/m2 01/24/2010 Heart Rate 100 /min BP Systolic 132 mmHg BP Diastolic 90 mmHg Respiratory Rate 16 /min 01/20/2010 Height 70 inches 5'10" Weight 249.00 lb Heart Rate 72 /min BP Systolic 124 mmHg BP Diastolic 90 mmHg Body Temperature 97.7 F BMI (Body Mass Index) 35.7 kg/m2 01/17/2010 Height 70 inches 5'10" Weight 254.00 lb Heart Rate 80 /min BP Systolic 130 mmHg BP Diastolic 90 mmHg BMI (Body Mass Index) 36.4 kg/m2 01/10/2010 Height 70 inches 5'10" Weight 249.00 lb Heart Rate 66 /min BP Systolic Sitting 124 mmHg BP Diastolic Sitting 82 mmHg BMI (Body Mass Index) 35.7 kg/m2 01/06/2010 Heart Rate 78 /min BP Systolic Sitting 110 mmHg BP Diastolic Sitting 70 mmHg 01/03/2010 Weight 249.00 lb Heart Rate 80 /min BP Systolic Sitting 114 mmHg BP Diastolic Sitting 80 mmHg 12/27/2009 Height 69.75 inches 5'9.75" Weight 250.00 lb Heart Rate 78 /min BP Systolic Sitting 130 mmHg BP Diastolic Sitting 90 mmHg BMI (Body Mass Index) 36.1 kg/m2 12/23/2009 Height 69.75 inches 5'9.75" Weight 283.00 lb Heart Rate 60 /min BP Systolic Sitting 126 mmHg BP Diastolic Sitting 80 mmHg Body Temperature 97.3 F BMI (Body Mass Index) 40.9 kg/m2 12/19/2009 Height 69.75 inches 5'9.75" Weight 246.00 lb Heart Rate 64 /min BP Systolic Sitting 110 mmHg BP Diastolic Sitting 60 mmHg Body Temperature 98.2 F BMI (Body Mass Index) 35.5 kg/m2 12/16/2009 Height 69.75 inches 5'9.75" Weight 252.00 lb Heart Rate 80 /min BP Systolic Sitting 120 mmHg BP Diastolic Sitting 94 mmHg Respiratory Rate 16 /min Body Temperature 97.9 F BMI (Body Mass Index) 36.4 kg/m2 Results Test Date Test Result H/L Range Note CBC Auto Diff 06/27/2016 White Blood Count 8.9 10^3/uL 3.5-10.8 Red Blood Count 5.01 10^6/uL 4.0-5.4 Hemoglobin 14.8 g/dL 14.0-18.0 Hematocrit 44 % 42-52 Mean Corpuscular Volume 87 fL 80-94 Mean Corpuscular Hemoglobin 30 pg 27-31 Mean Corpuscular HGB Conc 34 g/dL 31-36 Red Cell Distribution Width 13 % 10.5-15 Platelet Count 223 10^3/uL 150-450 Mean Platelet Volume 9 um3 7.4-10.4 Abs Neutrophils 4.1 10^3/uL 1.5-7.7 Abs Lymphocytes 3.7 10^3/uL 1.0-4.8 Abs Monocytes 0.8 10^3/uL 0-0.8 Abs Eosinophils 0.3 10^3/uL 0-0.6 Abs Basophils 0 10^3/uL 0-0.2 Abs Nucleated RBC 0.01 10^3/uL Granulocyte % 46.5 % 38-83 Lymphocyte % 41.3 % 25-47 Monocyte % 8.5 % 1-9 Eosinophil % 3.5 % 0-6 Basophil % 0.2 % 0-2 Nucleated Red Blood Cells % 0.1 Comp Metabolic Panel 06/27/2016 Sodium 138 mmol/L 133-145 Potassium 3.9 mmol/L 3.5-5.0 Chloride 105 mmol/L 101-111 Co2 Carbon Dioxide 27 mmol/L 22-32 Anion Gap 6 mmol/L 2-11 Glucose 90 mg/dL 70-100 Blood Urea Nitrogen 11 mg/dL 6-24 Creatinine 0.72 mg/dL 0.67-1.17 BUN/Creatinine Ratio 15.3 8-20 Calcium 9.6 mg/dL 8.6-10.3 Total Protein 6.9 g/dL 6.4-8.9 Albumin 4.1 g/dL 3.2-5.2 Globulin 2.8 g/dL 2-4 Albumin/Globulin Ratio 1.5 1-3 Total Bilirubin 0.40 mg/dL 0.2-1.0 Alkaline Phosphatase 63 U/L 34-104 Alt 8 U/L 7-52 Ast 12 U/L Low 13-39 Egfr Non- 122.8 >60 Egfr 158.0 >60 1 Laboratory test finding 06/27/2016 Lipase 29 U/L 11.0-82.0 C Reactive Protein 2.41 mg/L < 5.00 2 Lactic Acid 1.2 mmol/L 0.5-2.0 3 Urinalysis Profile 06/27/2016 Urine Color Yellow Urine Appearance Cloudy Urine Specific [place] 1.012 1.010-1.030 Urine pH 7.0 5-9 Urine Urobilinogen Negative Negative Urine Ketones Negative Negative Urine Protein Negative Negative Urine Leukocytes Trace Negative Urine Blood Negative Negative Urine Nitrite Negative Negative Urine Bilirubin Negative Negative Urine Glucose Negative Negative Urine White Blood Cell 1+(6-10/hpf) Absent Urine Red Blood Cell Trace(0-2/hpf) Absent Urine Bacteria Absent Absent Urine Yeast Present Absent Urine Culture And 06/27/2016 Urine Culture SEE RESULT BELOW 4 Sensitivities CBC Auto Diff 06/16/2016 White Blood Count 10.0 10^3/uL 3.5-10.8 5 Red Blood Count 5.07 10^6/uL 4.0-5.4 5 Hemoglobin 14.8 g/dL 14.0-18.0 5 Hematocrit 45 % 42-52 5 Mean Corpuscular Volume 88 fL 80-94 5 Mean Corpuscular Hemoglobin 29 pg 27-31 5 Mean Corpuscular HGB Conc 33 g/dL 31-36 5 Red Cell Distribution Width 14 % 10.5-15 5 Platelet Count 265 10^3/uL 150-450 5 Mean Platelet Volume 9 um3 7.4-10.4 5 Abs Neutrophils 5.6 10^3/uL 1.5-7.7 5 Abs Lymphocytes 3.0 10^3/uL 1.0-4.8 5 Abs Monocytes 0.9 10^3/uL High 0-0.8 5 Abs Eosinophils 0.4 10^3/uL 0-0.6 5 Abs Basophils 0.1 10^3/uL 0-0.2 5 Abs Nucleated RBC 0.01 10^3/uL 5 Granulocyte % 56.4 % 38-83 5 Lymphocyte % 30.0 % 25-47 5 Monocyte % 8.5 % 1-9 5 Eosinophil % 3.7 % 0-6 5 Basophil % 1.4 % 0-2 5 Nucleated Red Blood Cells % 0.1 5 Comp Metabolic Panel 06/16/2016 Sodium 138 mmol/L 133-145 5 Potassium 3.9 mmol/L 3.5-5.0 5 Chloride 104 mmol/L 101-111 5 Co2 Carbon Dioxide 28 mmol/L 22-32 5 Anion Gap 6 mmol/L 2-11 5 Glucose 89 mg/dL 70-100 5 Blood Urea Nitrogen 7 mg/dL 6-24 5 Creatinine 0.82 mg/dL 0.67-1.17 5 BUN/Creatinine Ratio 8.5 8-20 5 Calcium 9.6 mg/dL 8.6-10.3 5 Total Protein 7.0 g/dL 6.4-8.9 5 Albumin 4.5 g/dL 3.2-5.2 5 Globulin 2.5 g/dL 2-4 5 Albumin/Globulin Ratio 1.8 1-3 5 Total Bilirubin 0.30 mg/dL 0.2-1.0 5 Alkaline Phosphatase 62 U/L 34-104 5 Alt 7 U/L 7-52 5 Ast 14 U/L 13-39 5 Egfr Non- 105.7 >60 5 Egfr 136.0 >60 5, 6 Laboratory test finding 06/16/2016 TSH (Thyroid Stim 4.39 mcIU/mL 0.34- 5.60 5, 7 Horm) Ua Routine 06/13/2016 Ua Specific [place] 1.005 Ua PH 8 Ua Color yellow Ua Appera clear Ua WBC small Ua Protein neg Ua Glucose neg Ua Ketones neg Ua Bilirubin neg Ua Urobilinogen neg Ua Nitrite neg Ua Occult Blood neg GC/Chlamydia Amplified Rna 06/13/2016 Chlamydia trachomatis Rna Negative Negative Neisseria gonorrhoeae (GC) Rna Negative Negative CBC Auto Diff 06/12/2016 White Blood Count 9.9 10^3/uL 3.5-10.8 Red Blood Count 5.47 10^6/uL High 4.0-5.4 Hemoglobin 15.9 g/dL 14.0-18.0 Hematocrit 48 % 42-52 Mean Corpuscular Volume 88 fL 80-94 Mean Corpuscular Hemoglobin 29 pg 27-31 Mean Corpuscular HGB Conc 33 g/dL 31-36 Red Cell Distribution Width 14 % 10.5-15 Platelet Count 304 10^3/uL 150-450 Mean Platelet Volume 9 um3 7.4-10.4 Abs Neutrophils 5.4 10^3/uL 1.5-7.7 Abs Lymphocytes 3.4 10^3/uL 1.0-4.8 Abs Monocytes 0.6 10^3/uL 0-0.8 Abs Eosinophils 0.4 10^3/uL 0-0.6 Abs Basophils 0.1 10^3/uL 0-0.2 Abs Nucleated RBC 0.02 10^3/uL Granulocyte % 54.7 % 38-83 Lymphocyte % 34.3 % 25-47 Monocyte % 6.0 % 1-9 Eosinophil % 3.7 % 0-6 Basophil % 1.3 % 0-2 Nucleated Red Blood Cells % 0.2 Urinalysis Profile 06/12/2016 Urine Color Yellow Urine Appearance Clear Urine Specific [place] 1.009 Low 1.010-1.030 Urine pH 6.0 5-9 Urine Urobilinogen Negative Negative Urine Ketones Negative Negative Urine Protein Negative Negative Urine Leukocytes 3+ Negative Urine Blood Negative Negative Urine Nitrite Negative Negative Urine Bilirubin Negative Negative Urine Glucose Negative Negative Urine White Blood Cell 3+(>20/hpf) Absent Urine Red Blood Cell Trace(0-2/hpf) Absent Urine Bacteria Absent Absent Urine Squamous Epithelial Cell Present Absent Comp Metabolic Panel 06/12/2016 Sodium 137 mmol/L 133-145 Potassium 3.8 mmol/L 3.5-5.0 Chloride 102 mmol/L 101-111 Co2 Carbon Dioxide 29 mmol/L 22-32 Anion Gap 6 mmol/L 2-11 Glucose 84 mg/dL 70-100 Blood Urea Nitrogen 11 mg/dL 6-24 Creatinine 0.74 mg/dL 0.67-1.17 BUN/Creatinine Ratio 14.9 8-20 Calcium 9.9 mg/dL 8.6-10.3 Total Protein 8.0 g/dL 6.4-8.9 Albumin 4.6 g/dL 3.2-5.2 Globulin 3.4 g/dL 2-4 Albumin/Globulin Ratio 1.4 1-3 Total Bilirubin 0.50 mg/dL 0.2-1.0 Alkaline Phosphatase 71 U/L 34-104 Alt 9 U/L 7-52 Ast 15 U/L 13-39 Egfr Non- 119.0 >60 Egfr 153.1 >60 8 Laboratory test finding 06/12/2016 Amylase 33 U/L 29-103 Lipase 12 U/L 11.0-82.0 C Reactive Protein 3.88 mg/L < 5.00 9 Urine Culture And 06/12/2016 Urine Culture SEE RESULT BELOW 10, 11 Sensitivities Ua Routine 06/11/2016 Ua Specific [place] 1.000 Ua PH 8 Ua Color yellow Ua Appera clear Ua WBC trace Ua Protein neg Ua Glucose neg Ua Ketones neg Ua Bilirubin neg Ua Urobilinogen normal Ua Nitrite neg Ua Occult Blood neg Laboratory test finding 06/10/2016 Troponin-I (TnI) 0.00 ng/mL <0.03 12 Inr/Protime 06/10/2016 Inr 0.91 0.89-1.11 Laboratory test finding 06/10/2016 Partial Thrombo Time 29.4 seconds 26.0 -36.3 PTT CBC Auto Diff 06/10/2016 White Blood Count 8.3 10^3/uL 3.5-10.8 Red Blood Count 5.20 10^6/uL 4.0-5.4 Hemoglobin 15.2 g/dL 14.0-18.0 Hematocrit 46 % 42-52 Mean Corpuscular Volume 88 fL 80-94 Mean Corpuscular Hemoglobin 29 pg 27-31 Mean Corpuscular HGB Conc 33 g/dL 31-36 Red Cell Distribution Width 14 % 10.5-15 Platelet Count 277 10^3/uL 150-450 Mean Platelet Volume 9 um3 7.4-10.4 Abs Neutrophils 4.9 10^3/uL 1.5-7.7 Abs Lymphocytes 2.5 10^3/uL 1.0-4.8 Abs Monocytes 0.5 10^3/uL 0-0.8 Abs Eosinophils 0.2 10^3/uL 0-0.6 Abs Basophils 0.1 10^3/uL 0-0.2 Abs Nucleated RBC 0.01 10^3/uL Granulocyte % 59.4 % 38-83 Lymphocyte % 30.0 % 25-47 Monocyte % 6.6 % 1-9 Eosinophil % 2.7 % 0-6 Basophil % 1.3 % 0-2 Nucleated Red Blood Cells % 0.1 Laboratory test finding 06/10/2016 Lactic Acid 1.0 mmol/L 0.5-2.0 13 Comp Metabolic Panel 06/10/2016 Sodium 138 mmol/L 133-145 Potassium 4.1 mmol/L 3.5-5.0 Chloride 105 mmol/L 101-111 Co2 Carbon Dioxide 28 mmol/L 22-32 Anion Gap 5 mmol/L 2-11 Glucose 85 mg/dL 70-100 Blood Urea Nitrogen 11 mg/dL 6-24 Creatinine 0.77 mg/dL 0.67-1.17 BUN/Creatinine Ratio 14.3 8-20 Calcium 9.5 mg/dL 8.6-10.3 Total Protein 7.1 g/dL 6.4-8.9 Albumin 4.3 g/dL 3.2-5.2 Globulin 2.8 g/dL 2-4 Albumin/Globulin Ratio 1.5 1-3 Total Bilirubin 0.50 mg/dL 0.2-1.0 Alkaline Phosphatase 57 U/L 34-104 Alt 10 U/L 7-52 Ast 16 U/L 13-39 Egfr Non- 113.7 >60 Egfr 146.2 >60 14 CBC Auto Diff 05/25/2016 White Blood Count 10.5 10^3/uL 3.5-10.8 Red Blood Count 5.20 10^6/uL 4.0-5.4 Hemoglobin 15.1 g/dL 14.0-18.0 Hematocrit 46 % 42-52 Mean Corpuscular Volume 88 fL 80-94 Mean Corpuscular Hemoglobin 29 pg 27-31 Mean Corpuscular HGB Conc 33 g/dL 31-36 Red Cell Distribution Width 14 % 10.5-15 Platelet Count 247 10^3/uL 150-450 Mean Platelet Volume 9 um3 7.4-10.4 Abs Neutrophils 6.3 10^3/uL 1.5-7.7 Abs Lymphocytes 3.1 10^3/uL 1.0-4.8 Abs Monocytes 0.5 10^3/uL 0-0.8 Abs Eosinophils 0.4 10^3/uL 0-0.6 Abs Basophils 0.3 10^3/uL High 0-0.2 Abs Nucleated RBC 0 10^3/uL Granulocyte % 59.8 % 38-83 Lymphocyte % 29.3 % 25-47 Monocyte % 4.7 % 1-9 Eosinophil % 3.6 % 0-6 Basophil % 2.6 % High 0-2 Nucleated Red Blood Cells % 0 Comp Metabolic Panel 05/25/2016 Sodium 138 mmol/L 133-145 Potassium 3.3 mmol/L Low 3.5-5.0 Chloride 103 mmol/L 101-111 Co2 Carbon Dioxide 26 mmol/L 22-32 Anion Gap 9 mmol/L 2-11 Glucose 117 mg/dL High 70-100 Blood Urea Nitrogen 8 mg/dL 6-24 Creatinine 0.65 mg/dL Low 0.67-1.17 BUN/Creatinine Ratio 12.3 8-20 Calcium 9.5 mg/dL 8.6-10.3 Total Protein 7.2 g/dL 6.4-8.9 Albumin 4.3 g/dL 3.2-5.2 Globulin 2.9 g/dL 2-4 Albumin/Globulin Ratio 1.5 1-3 Total Bilirubin 0.50 mg/dL 0.2-1.0 Alkaline Phosphatase 63 U/L 34-104 Alt 10 U/L 7-52 Ast 16 U/L 13-39 Egfr Non- 138.2 >60 Egfr 177.8 >60 15 Laboratory test finding 05/25/2016 Troponin-I (TnI) 0.00 ng/mL <0.03 16 Urinalysis Profile 05/25/2016 Urine Color Colorless Urine Appearance Clear Urine Specific [place] 1.002 Low 1.010-1.030 Urine pH 7.0 5-9 Urine Urobilinogen Negative Negative Urine Ketones Negative Negative Urine Protein Negative Negative Urine Leukocytes Trace Negative Urine Blood 1+ Negative Urine Nitrite Negative Negative Urine Bilirubin Negative Negative Urine Glucose Negative Negative Urine White Blood Cell Trace(0-5/hpf) Absent Urine Red Blood Cell Absent Absent Urine Bacteria Absent Absent Urine Culture And 05/25/2016 Urine Culture SEE RESULT BELOW 17 Sensitivities Comp Metabolic Panel 05/12/2016 Sodium 137 mmol/L 133-145 Potassium 3.7 mmol/L 3.5-5.0 Chloride 105 mmol/L 101-111 Co2 Carbon Dioxide 27 mmol/L 22-32 Anion Gap 5 mmol/L 2-11 Glucose 84 mg/dL 70-100 Blood Urea Nitrogen 8 mg/dL 6-24 Creatinine 0.69 mg/dL 0.67-1.17 BUN/Creatinine Ratio 11.6 8-20 Calcium 9.5 mg/dL 8.6-10.3 Total Protein 7.1 g/dL 6.4-8.9 Albumin 4.3 g/dL 3.2-5.2 Globulin 2.8 g/dL 2-4 Albumin/Globulin Ratio 1.5 1-3 Total Bilirubin 0.50 mg/dL 0.2-1.0 Alkaline Phosphatase 66 U/L 34-104 Alt 7 U/L 7-52 Ast 17 U/L 13-39 Egfr Non- 129.0 >60 Egfr 165.9 >60 18 Laboratory test finding 05/12/2016 Magnesium 2.2 mg/dL 1.9-2.7 Creatine Kinase(CK) 203 U/L 10-223 Troponin-I (TnI) 0.00 ng/mL <0.03 19 CKMB 05/12/2016 CKMB ng/mL 4.0 ng/mL 0.6-6.3 Laboratory test 05/12/2016 D Dimer Quantitative < 200 ng/mL Less Than 230 20 finding CBC Auto Diff 05/12/2016 White Blood Count 10.8 10^3/uL 3.5-10.8 Red Blood Count 5.20 10^6/uL 4.0-5.4 Hemoglobin 15.1 g/dL 14.0-18.0 Hematocrit 45 % 42-52 Mean Corpuscular Volume 87 fL 80-94 Mean Corpuscular Hemoglobin 29 pg 27-31 Mean Corpuscular HGB Conc 33 g/dL 31-36 Red Cell Distribution Width 14 % 10.5-15 Platelet Count 248 10^3/uL 150-450 Mean Platelet Volume 9 um3 7.4-10.4 Abs Neutrophils 8.3 10^3/uL High 1.5-7.7 Abs Lymphocytes 1.4 10^3/uL 1.0-4.8 Abs Monocytes 0.3 10^3/uL 0-0.8 Abs Eosinophils 0.2 10^3/uL 0-0.6 Abs Basophils 0.5 10^3/uL High 0-0.2 Abs Nucleated RBC 0.02 10^3/uL Granulocyte % 77.3 % 38-83 Lymphocyte % 13.0 % Low 25-47 Monocyte % 2.6 % 1-9 Eosinophil % 2.2 % 0-6 Basophil % 4.9 % High 0-2 Nucleated Red Blood Cells % 0.2 Laboratory test finding 04/09/2016 TSH (Thyroid Stim Horm) 1.39 ?IU/mL 0.34-5.60 Lipid Profile 04/09/2016 Triglycerides 198 mg/dL 21 (Trig/Chol/HDL) Cholesterol 273 mg/dL 22 HDL Cholesterol 38.1 mg/dL 23 LDL Cholesterol 195 mg/dL 24 CBC Auto Diff 03/18/2014 White Blood Count 10.9 10^3/uL High 4.8-10.8 Red Blood Count 5.33 10^6/uL 4.0-5.4 Hemoglobin 15.9 g/dL 14.0-18.0 Hematocrit 46 % 42-52 Mean Corpuscular Volume 87 fL 80-94 Mean Corpuscular Hemoglobin 30 pg 27-31 Mean Corpuscular HGB Conc 34 g/dL 31-36 Red Cell Distribution Width 14 % 10.5-15 Platelet Count 225 10^3/uL 150-450 Mean Platelet Volume 9 um3 7.4-10.4 Abs Neutrophils 7.4 10^3/uL 1.5-7.7 Abs Lymphocytes 2.4 10^3/uL 1.0-4.8 Abs Monocytes 0.6 10^3/uL 0-0.8 Abs Eosinophils 0.2 10^3/uL 0-0.6 Abs Basophils 0.1 10^3/uL 0-0.2 Abs Nucleated RBC 0.01 10^3/uL Granulocyte % 68.5 % 38-83 Lymphocyte % 22.5 % Low 25-47 Monocyte % 5.7 % 1-9 Eosinophil % 2.1 % 0-6 Basophil % 1.2 % 0-2 Nucleated Red Blood Cells % 0 Comp Metabolic Panel 03/18/2014 Sodium 136 mmol/L 133-145 Potassium 4.1 mmol/L 3.7-5.6 Chloride 102 mmol/L 101-111 Co2 Carbon Dioxide 29 mmol/L 22-32 Anion Gap 5 mmol/L 2-11 Glucose 85 mg/dL 70-100 Blood Urea Nitrogen 12 mg/dL 6-24 Creatinine 0.80 mg/dL 0.67-1.17 BUN/Creatinine Ratio 15.0 8-20 Calcium 9.9 mg/dL 8.6-10.3 Total Protein 7.6 g/dL 6.4-8.9 Albumin 4.7 g/dL 3.2-5.2 Globulin 2.9 g/dL 2-4 Albumin/Globulin Ratio 1.6 1-3 Total Bilirubin 0.40 mg/dL 0.2-1.0 Alkaline Phosphatase 75 U/L 34-104 Alt 8 U/L 7-52 Ast 17 U/L 13-39 Egfr Non- 110.0 >60 Egfr 141.5 >60 25 Basic Metabolic Panel 07/18/2012 Sodium 139 mmol/L 135-145 Potassium 3.8 mmol/L 3.5-5.0 Chloride 103 mmol/L 101-111 Co2 (Carbon Dioxide) 28.0 mmol/L 22-32 Anion Gap 8.0 mmol/L 2-11 26 Glucose 98 mg/dL 70-100 BUN 14 mg/dL 6-24 Creatinine 0.8 mg/dL 0.50-1.40 One Over Creatinine 1.25 BUN/Creatinine Ratio 17.5 8-20 Calcium 9.8 mg/dL 8.1-9.9 eGFR Non- 111.3 > 60 eGFR 143.2 > 60 27 CBC Auto Diff 07/18/2012 White Blood Count 10.6 CUMM 4.8-10.8 Red Cell Count 5.45 CUMM 4.6-6.2 Hemoglobin 16.1 g/dL 14.0-18.0 Hematocrit 47 % 42-52 Mean Corpuscular Volume 86 um3 80-94 Mean Corpuscular Hemoglob 30 pg 27-31 Mean Corpuscular HGB Cone 34 g/dL 32-36 Redcell Distribution WDTH 14 % 10.5-15 Platelet Count 250 CUMM 150-450 Mean Platelet Volume 8.7 um3 7.4-10.4 Gran % 58.8 % 38-83 Lymph % 30.0 % 20-45 Mononuclear % 7.7 % 1-9 Eosinophil % 2.7 % 0-6 Basophil % 0.8 % 0-2 Abs Lymphs 3.2 1.0-4.8 Abs Mononuclear 0.8 0-0.8 Absolute Neutrophil Count 6.2 1.5-7.7 Abs Eosinophils 0.3 0-0.6 Abs Basophils 0.1 0-0.2 Urinalysis W/Microscopic 07/18/2012 Ua Color YELLOW Yellow Appearance-Urine CLEAR Clear Specific [place]-Ur 1.026 1.010-1.030 Esterase-Urine 1+ Negative Nitrite NEGATIVE Negative [id number]-[id number] NEGATIVE Negative Protein-Urine NEGATIVE Negative PH-Urine 5.5 5-9 Blood-Urine NEGATIVE Negative Ketones-Urine NEGATIVE Negative Bilirubin-Ur NEGATIVE Negative Glucose-Urine NEGATIVE Negative WBC-Urine 10-15 0-5 RBC-Urine 0-2 0-2 Epith Cells-Ur RARE None Bacteria-Urine TRACE None Amorphous Sed-U TRACE None Urine Culture & 07/18/2012 M <SEE 28 Sensitivi NOTE> Urine Culture & 02/14/2012 M <SEE 29 Sensitivi NOTE> Laboratory test 01/28/2012 Throat Culture <SEE 30 finding Full NOTE> Rapid Strep A 10/23/2011 M <SEE 31 NOTE> MRSA/Vre Screen 03/21/2011 MRSA/Vre Culture [facility] 32 CBC With Electronic 12/05/2010 White Blood 9.7 CUMM 4.8-10.8 Diff Count Red Cell Count 5.42 CUMM 4.6-6.2 Hemoglobin 15.2 g/dL 14.0-18.0 Hematocrit 46 % 42-52 Mean Corpuscular Volume 86 um3 80-94 Mean Corpuscular Hemoglob 28 pg 27-31 Mean Corpuscular HGB Cone 33 g/dL 32-36 Redcell Distribution WDTH 13 % 10.5-15 Platelet Count 223 CUMM 150-450 Mean Platelet Volume 10.0 um3 7.4-10.4 Gran % 50.9 % 38-83 Lymph % 38.2 % 25-47 Mononuclear % 7.3 % 1-9 Eosinophil % 2.9 % 0-6 Basophil % 0.7 % 0-2 Abs Lymphs 3.7 1.0-4.8 Abs Mononuclear 0.7 0-0.8 Absolute Neutrophil Count 4.9 1.5-7.7 Abs Eosinophils 0.3 0-0.6 Abs Basophils 0.1 0-0.2 Comp Metabolic Panel 12/05/2010 Sodium 140 mmol/L 135-145 Potassium 4.2 mmol/L 3.5-5.0 Chloride 103 mmol/L 101-111 Co2 (Carbon Dioxide) 28.0 mmol/L 22-32 Anion Gap 9.0 mmol/L 2-11 33 Glucose 77 mg/dL 70-100 BUN 11 mg/dL 6-24 Creatinine 0.70 mg/dL 0.50-1.40 One Over Creatinine 1.40 BUN/Creatinine Ratio 15.7 8-20 Calcium 9.8 mg/dL 8.1-9.9 Total Protein 7.2 GM/DL 6.2-8.1 Albumin 4.0 GM/DL 3.6-5.4 Globulin 3.2 GM/DL 2-4 Albumin/Globulin Ratio 1.3 1-3 Bilirubin Total 0.7 mg/dL 0.4-1.5 34 Alkaline Phosphatase 69 U/L 39-117 Alt (SGPT) 26 U/L 17-63 Ast (Sgot) 32 U/L 12-42 eGFR Non- 131.5 > 60 eGFR 169.2 > 60 35 Laboratory test finding 12/05/2010 TSH 2.87 MIU/ML 0.34-5.60 Thyroxine Free 0.62 NG/ML 0.61-1.24 CBC With Electronic Diff 10/30/2010 White Blood Count 12.8 CUMM High 4.8- 10.8 Red Cell Count 5.50 CUMM 4.6-6.2 Hemoglobin 15.8 g/dL 14.0-18.0 Hematocrit 47 % 42-52 Mean Corpuscular Volume 85 um3 80-94 Mean Corpuscular Hemoglob 29 pg 27-31 Mean Corpuscular HGB Cone 34 g/dL 32-36 Redcell Distribution WDTH 14 % 10.5-15 Platelet Count 231 CUMM 150-450 Mean Platelet Volume 8.4 um3 7.4-10.4 36 Comp Metabolic Panel 10/30/2010 Sodium 135 mmol/L 135-145 Potassium 3.9 mmol/L 3.5-5.0 Chloride 100 mmol/L Low 101-111 Co2 (Carbon Dioxide) 27.0 mmol/L 22-32 Anion Gap 8.0 mmol/L 2-11 37 Glucose 96 mg/dL 70-100 BUN 7 mg/dL 6-24 Creatinine 0.80 mg/dL 0.50-1.40 One Over Creatinine 1.20 BUN/Creatinine Ratio 8.8 8-20 Calcium 10.0 mg/dL High 8.1-9.9 Total Protein 6.9 GM/DL 6.2-8.1 Albumin 4.2 GM/DL 3.6-5.4 Globulin 2.7 GM/DL 2-4 Albumin/Globulin Ratio 1.6 1-3 Bilirubin Total 1.0 mg/dL 0.4-1.5 38 Alkaline Phosphatase 87 U/L 39-117 Alt (SGPT) 21 U/L 17-63 Ast (Sgot) 23 U/L 12-42 eGFR Non- 119.8 > 60 eGFR 145.0 > 60 39 Manual Differential 10/30/2010 Polysegmented Neutrophil 67 % 38-83 Band Neutrophil 3 % 0-8 Lymphocyte 19 % Low 25-47 Monocyte 7 % 0-13 Eosinophil 3 % 0-6 Basophil 1 % 0-2 Absolute Neutrophil Count 8.9 RBC Morphology NORMAL Urinalysis 10/13/2010 Ua Color YELLOW Yellow Appearance-Urine CLEAR Clear Specific [place]-Ur 1.014 1.010-1.030 Esterase-Urine NEGATIVE Negative Nitrite NEGATIVE Negative [id number] NEGATIVE Negative Protein-Urine NEGATIVE Negative PH-Urine 6.5 5-9 Blood-Urine NEGATIVE Negative Ketones-Urine NEGATIVE Negative Bilirubin-Ur NEGATIVE Negative Glucose-Urine NEGATIVE Negative Comp Metabolic Panel 06/26/2010 Sodium 139 mmol/L 135-145 Potassium 3.6 mmol/L 3.5-5.0 Chloride 105 mmol/L 101-111 Co2 (Carbon Dioxide) 28.0 mmol/L 22-32 Anion Gap 6.0 mmol/L 2-11 40 Glucose 92 mg/dL 70-100 41 BUN 9 mg/dL 6-24 Creatinine 0.73 mg/dL 0.50-1.40 One Over Creatinine 1.30 BUN/Creatinine Ratio 12.3 8-20 Calcium 9.9 mg/dL 8.1-9.9 42 Total Protein 8.4 GM/DL High 6.2-8.1 Albumin 4.4 GM/DL 3.6-5.4 Globulin 4.0 GM/DL 2-4 Albumin/Globulin Ratio 1.1 1-3 Bilirubin Total 0.5 mg/dL 0.4-1.5 43 Alkaline Phosphatase 83 U/L 39-117 Alt (SGPT) 18 U/L 17-63 Ast (Sgot) 31 U/L 12-42 eGFR Non- 133.2 > 60 eGFR 161.2 > 60 44 Laboratory test 06/26/2010 Troponin-I (TnI) 0.01 NG/ML 45 finding Urine Drug SCR ED 06/26/2010 Amphetamines Urine NONE DETECTED None Detect Pain Clinic Screen Barbituates Urine Screen NONE DETECTED None Detect Benzodiazepine Ur Screen NONE DETECTED None Detect Cannabinoid Urine Screen NONE DETECTED None Detect Cocaine Metabolites Urine NONE DETECTED None Detect Opiates Urine Screen NONE DETECTED None Detect PCP Urine Screen NONE DETECTED None Detect 46 Urinalysis 06/26/2010 Ua Color YELLOW Yellow Appearance-Urine CLEAR Clear Specific [place]-Ur 1.006 Low 1.010-1.030 Esterase-Urine NEGATIVE Negative Nitrite NEGATIVE Negative Uyumjosblcbn-[id number] NEGATIVE Negative Protein-Urine NEGATIVE Negative PH-Urine 7.5 5-9 Blood-Urine NEGATIVE Negative Ketones-Urine NEGATIVE Negative Bilirubin-Ur NEGATIVE Negative Glucose-Urine NEGATIVE Negative CBC With Electronic Diff 06/26/2010 White Blood Count 11.6 CUMM High 4.8- 10.8 Red Cell Count 5.63 CUMM 4.6-6.2 Hemoglobin 16.3 g/dL 14.0-18.0 Hematocrit 47 % 42-52 Mean Corpuscular Volume 84 um3 80-94 Mean Corpuscular Hemoglob 29 pg 27-31 Mean Corpuscular HGB Cone 34 g/dL 32-36 Redcell Distribution WDTH 13 % 10.5-15 Platelet Count 267 CUMM 150-450 Mean Platelet Volume 7.9 um3 7.4-10.4 47 Manual Differential 06/26/2010 Polysegmented Neutrophil 66 % 38-83 Lymphocyte 27 % 25-47 Monocyte 4 % 0-13 Eosinophil 3 % 0-6 Absolute Neutrophil Count 7.6 Anisocytosis SLIGHT Thyroid Panel 06/16/2010 Free Thyroxine 0.65 NG/ML 0.61-1.24 48 Thyroxine 7.0 g/dL 5-12 TSH 4.22 MIU/ML 0.34-5.60 Comp Metabolic Panel 06/16/2010 Sodium 138 mmol/L 135-145 Potassium 3.9 mmol/L 3.5-5.0 Chloride 106 mmol/L 101-111 Co2 (Carbon Dioxide) 27.0 mmol/L 22-32 Anion Gap 5.0 mmol/L 2-11 49 Glucose 83 mg/dL 70-100 50 BUN 8 mg/dL 6-24 Creatinine 0.90 mg/dL 0.50-1.40 One Over Creatinine 1.10 BUN/Creatinine Ratio 8.9 8-20 Calcium 9.8 mg/dL 8.1-9.9 51 Total Protein 7.2 GM/DL 6.2-8.1 Albumin 4.1 GM/DL 3.6-5.4 Globulin 3.1 GM/DL 2-4 Albumin/Globulin Ratio 1.3 1-3 Bilirubin Total 0.7 mg/dL 0.4-1.5 52 Alkaline Phosphatase 78 U/L 39-117 Alt (SGPT) 15 U/L Low 17-63 Ast (Sgot) 23 U/L 12-42 eGFR Non- 104.6 > 60 eGFR 126.6 > 60 53 Lipid Profile (Trig/Chol/HDL) 06/16/2010 Triglyceride 303 mg/dL High 40- 200 Cholesterol 254 mg/dL High Less Than 200 54 High Density Lipoprotein 32 mg/dL Low 40-60 55 Cholesterol/HDL Ratio 7.94 AVERAGE High 1-4.97 Low Density Lipoprotein 161 mg/dL High Less Than 100 56 Hepatitis Acute Panel 01/17/2010 Hepatitis C Antibody NEGATIVE Negative Hepatitis A AB Igm NONREACTIVE Negative Hepatitis B Core Igm NONREACTIVE Negative Hepatitis B Surface Ag NONREACTIVE Negative Liver Function Panel 01/17/2010 Total Protein 6.6 GM/DL 6.2-8.1 Albumin 4.0 GM/DL 3.6-5.4 Globulin 2.6 GM/DL 2-4 Albumin/Globulin Ratio 1.5 1-3 Bilirubin Total 0.7 mg/dL 0.4-1.5 57 Bilirubin Direct 0.2 mg/dL 0.1-0.5 Indirect Bilirubin 0.5 mg/dL 0.1-0.75 Alkaline Phosphatase 72 U/L 39-117 Alt (SGPT) 51 U/L 17-63 Ast (Sgot) 80 U/L High 12-42 Laboratory test finding 01/10/2010 Culture Sensitivity BETA STREP GROUP 58 <SEE NOTE> Culture & 01/10/2010 Ampicillin <=0.25 Sensitivies 1 Levofloxacin 2 Linezolid 2 Penicillin <=0.12 Tetracycline >=16 Tigecycline <=0.12 Vancomycin <=0.5 Urinalysis W/Microscopic 01/09/2010 Ua Color YELLOW Yellow Appearance-Urine CLEAR Clear Specific [place]-Ur 1.015 1.010-1.030 Esterase-Urine NEGATIVE Negative Nitrite NEGATIVE Negative Hjzgkuwxpgxc-Rz-XRT NEGATIVE Negative Protein-Urine NEGATIVE Negative PH-Urine 6.0 5-9 Blood-Urine NEGATIVE Negative Ketones-Urine NEGATIVE Negative Bilirubin-Ur NEGATIVE Negative Glucose-Urine NEGATIVE Negative WBC-Urine 0-2 0-5 RBC-Urine NONE 0-2 Epith Cells-Ur NONE None Bacteria-Urine TRACE None Amorphous Sed-U TRACE None Urine Culture & 01/09/2010 Urine Culture NG 59 Sensitivi Sensitivi Vitamin D 1,25 And 01/04/2010 Vitamin D, 1,25 44 pg/mL 18-64 60 Vitamin D,2 Dihydroxy Vitamin D, 25 Hydroxy 01/04/2010 25-Hydroxy Vitamin D2 <4.0 ng/mL () 25-Hydroxy Vitamin D3 17 ng/mL () 25-Hydroxy Vitamin D Total 17 ng/mL () 61 PTH Intact, Inc Total Calcium 01/04/2010 PTH Intact 2.8 PMOL/L 1.3-9.3 62 Calcium For Pthi 9.8 mg/dL 8.1-9.9 63 Laboratory test finding 01/04/2010 Calcium Ionized 4.74 mg/dL 4.65-5.28 CBC With Electronic Diff 01/04/2010 White Blood Count 6.8 CUMM 4.8-10.8 Red Cell Count 5.58 CUMM 4.6-6.2 Hemoglobin 16.4 g/dL 14.0-18.0 Hematocrit 48 % 42-52 Mean Corpuscular Volume 85 um3 80-94 Mean Corpuscular Hemoglob 29 pg 27-31 Mean Corpuscular HGB Cone 34 g/dL 32-36 Redcell Distribution WDTH 12 % 10.5-15 Platelet Count 216 CUMM 150-450 Mean Platelet Volume 9.4 um3 7.4-10.4 Gran % 54.9 % 38-83 Lymph % 33.6 % 25-47 Mononuclear % 6.4 % 1-9 Eosinophil % 3.5 % 0-6 Basophil % 1.6 % 0-2 Abs Lymphs 2.3 1.0-4.8 Abs Mononuclear 0.4 0-0.8 Absolute Neutrophil Count 3.8 1.5-7.7 Abs Eosinophils 0.2 0-0.6 Abs Basophils 0.1 0-0.2 CBC With Electronic Diff 01/03/2010 White Blood Count 8.9 CUMM 4.8-10.8 Red Cell Count 5.79 CUMM 4.6-6.2 Hemoglobin 16.4 g/dL 14.0-18.0 Hematocrit 51 % 42-52 Mean Corpuscular Volume 87 um3 80-94 Mean Corpuscular Hemoglob 28 pg 27-31 Mean Corpuscular HGB Cone 33 g/dL 32-36 Redcell Distribution WDTH 13 % 10.5-15 Platelet Count 255 CUMM 150-450 Mean Platelet Volume 9.4 um3 7.4-10.4 Gran % 50.7 % 38-83 Lymph % 38.8 % 25-47 Mononuclear % 6.4 % 1-9 Eosinophil % 3.5 % 0-6 Basophil % 0.6 % 0-2 Abs Lymphs 3.5 1.0-4.8 Abs Mononuclear 0.6 0-0.8 Absolute Neutrophil Count 4.5 1.5-7.7 Abs Eosinophils 0.3 0-0.6 Abs Basophils 0.1 0-0.2 Laboratory test finding 01/03/2010 Ictotest-Urine NEGATIVE 64 Laboratory test finding 01/03/2010 TSH 0.24 MIU/ML Low 0.34-5.60 Urinalysis W/Microscopic 01/03/2010 Ua Color RISA Yellow Appearance-Urine CLEAR Clear Specific [place]-Ur 1.030 1.010-1.030 Esterase-Urine 1+ Negative Nitrite NEGATIVE Negative Cppejhntuphc-Hk-ELX NEGATIVE Negative Protein-Urine TRACE Negative PH-Urine 6.0 5-9 Blood-Urine NEGATIVE Negative Ketones-Urine TRACE Negative Bilirubin-Ur SEE ICTOTEST Negative Glucose-Urine NEGATIVE Negative WBC-Urine 5-10 0-5 RBC-Urine 0-2 0-2 Mucus Urine LARGE None Bacteria-Urine TRACE None Lipid Profile (Trig/Chol/HDL) 01/03/2010 Triglyceride 190 mg/dL 40-200 Cholesterol 265 mg/dL High Less Than 200 65 High Density Lipoprotein 35 mg/dL Low 40-60 66 Cholesterol/HDL Ratio 7.57 AVERAGE High 1-4.97 Low Density Lipoprotein 192 mg/dL High Less Than 100 67 Comp Metabolic Panel 01/03/2010 Sodium 135 mmol/L 135-145 Potassium 3.9 mmol/L 3.5-5.0 Chloride 99 mmol/L Low 101-111 Co2 (Carbon Dioxide) 28.0 mmol/L 22-32 Anion Gap 8.0 mmol/L 2-11 68 Glucose 95 mg/dL 70-100 69 BUN 7 mg/dL 6-24 Creatinine 0.80 mg/dL 0.50-1.40 One Over Creatinine 1.20 BUN/Creatinine Ratio 8.8 8-20 Calcium 10.0 mg/dL High 8.1-9.9 70 Total Protein 7.2 GM/DL 6.2-8.1 Albumin 4.2 GM/DL 3.6-5.4 Globulin 3.0 GM/DL 2-4 Albumin/Globulin Ratio 1.4 1-3 Bilirubin Total 1.5 mg/dL 0.4-1.5 71 Alkaline Phosphatase 74 U/L 39-117 Alt (SGPT) 64 U/L High 17-63 Ast (Sgot) 104 U/L High 12-42 eGFR Non- 119.8 > 60 eGFR 145.0 > 60 72 Laboratory test finding 01/03/2010 Acth 18 pg/mL () 73 Urine Culture & 01/03/2010 Urine Culture BETA STREP GROUP 74 Sensitivi Sensitivi <SEE NOTE> 1 Because ethnic data is not always readily available, this report includes an eGFR for both -Americans and non- Americans. The National Kidney Disease Education Program (NKDEP) does not endorse the use of the MDRD equation for patients that are not between the ages of 18 and 70, are , have extremes of body size, muscle mass, or nutritional status, or are non- or non-. According to the National Kidney Foundation, irrespective of diagnosis, the stage of the disease is based on the level of kidney function: Stage Description GFR(mL/min/1.73 m(2)) 1 Kidney damage with normal or decreased GFR 90 2 Kidney damage with mild decrease in GFR 60-89 3 Moderate decrease in GFR 30-59 4 Severe decrease in GFR 15-29 5 Kidney failure <15 (or dialysis) 2 Acute inflammation: >10.00 3 [place] Severe Sepsis and Septic Shock Management Bundle Measure requires all lactic acids initially measuring >2.0 mmol/L be repeated. 4 SEE RESULT BELOW Name: AMANDA NAPIER Madelaine : [address]: Lalo Head MD Acct: [id number] Unit: [id number] AGE: 35 Location: ED Re06/27/16 SEX: M Status: DEP ER SPEC: [id number] JAIRO: 06/27/16-[address]: Lalo Head MD REQ: [id number] RECD: 06/27/16 STATUS: SARI BANUELOS DR: Laz Shiedls MD _ SOURCE: URINE SPDESC: ORDERED: Urine Culture Procedure Result Reported Site Urine Culture Final 06/28/16- 0906 ML No Growth (<1,000 CFU/mL) * ML - MAIN LAB ([facility]) . END OF REPORT * ML=Testing performed at Main Lab DEPARTMENT OF PATHOLOGY, [address] [place] [address] Ahsan Fam M.D. Director [facility] # [id number] 5 [id number] 6 Because ethnic data is not always readily available, this report includes an eGFR for both -Americans and non- Americans. The National Kidney Disease Education Program (NKDEP) does not endorse the use of the MDRD equation for patients that are not between the ages of 18 and 70, are , have extremes of body size, muscle mass, or nutritional status, or are non- or non-. According to the National Kidney Foundation, irrespective of diagnosis, the stage of the disease is based on the level of kidney function: Stage Description GFR(mL/min/1.73 m(2)) 1 Kidney damage with normal or decreased GFR 90 2 Kidney damage with mild decrease in GFR 60-89 3 Moderate decrease in GFR 30-59 4 Severe decrease in GFR 15-29 5 Kidney failure <15 (or dialysis) 7 [id number] 8 Because ethnic data is not always readily available, this report includes an eGFR for both -Americans and non- Americans. The National Kidney Disease Education Program (NKDEP) does not endorse the use of the MDRD equation for patients that are not between the ages of 18 and 70, are , have extremes of body size, muscle mass, or nutritional status, or are non- or non-. According to the National [employer], irrespective of diagnosis, the stage of the disease is based on the level of kidney function: Stage Description GFR(mL/min/1.73 m(2)) 1 Kidney damage with normal or decreased GFR 90 2 Kidney damage with mild decrease in GFR 60-89 3 Moderate decrease in GFR 30-59 4 Severe decrease in GFR 15-29 5 Kidney failure <15 (or dialysis) 9 Acute inflammation: >10.00 10 [id number] SEE RESULT BELOW Name: AMANDA NAPIER : [address]: Janiya Lucas MD Acct: [id number] Unit: [id number] AGE: 35 Location: [facility] Re06/12/16 SEX: M Status: DEP ER SPEC: [id number] JAIRO: 06/12/16-1613 [facility] DR: Janiya Lucas MD REQ: [id number] RECD: 06/12/16 STATUS: SARI BANUELOS DR: Laz Shields MD _ SOURCE: URINE SPDESC: ORDERED: Urine Culture COMMENTS: [id number] Procedure Result Reported Site Urine Culture Final 06/14/16- 0853 ML No Growth (<1,000 CFU/mL) * ML - MAIN LAB ([facility]) . END OF REPORT * ML=Testing performed at Main Lab DEPARTMENT OF PATHOLOGY, [address] [place] [address] Ahsan Fam M.D. Director [facility] # [id number] 12 Reference Range and Interpretation: TnI (ng/mL) Interpretation Less Than 0.03 ng/mL Not supportive of diagnosis of ND 0.03 - 0.50 ng/mL Indeterminate: suggest serial studies if clinically indicated. Greater than 0.5 ng/mL Consistent with diagnosis of ND 13 [facility] Severe Sepsis and Septic Shock Management Bundle Measure requires all lactic acids initially measuring >2.0 mmol/L be repeated. 14 Because ethnic data is not always readily available, this report includes an eGFR for both -Americans and non- Americans. The National Kidney Disease Education Program (NKDEP) does not endorse the use of the MDRD equation for patients that are not between the ages of 18 and 70, are , have extremes of body size, muscle mass, or nutritional status, or are non- or non-. According to the National Kid[employer] Foundation, irrespective of diagnosis, the stage of the disease is based on the level of kidney function: Stage Description GFR(mL/min/1.73 m(2)) 1 Kidney damage with normal or decreased GFR 90 2 Kidney damage with mild decrease in GFR 60-89 3 Moderate decrease in GFR 30-59 4 Severe decrease in GFR 15-29 5 Kidney failure <15 (or dialysis) 15 Because ethnic data is not always readily available, this report includes an eGFR for both -Americans and non- Americans. The National Kidney Disease Education Program (NKDEP) does not endorse the use of the MDRD equation for patients that are not between the ages of 18 and 70, are , have extremes of body size, muscle mass, or nutritional status, or are non- or non-. According to the National Kidney Foundation, irrespective of diagnosis, the stage of the disease is based on the level of kidney function: Stage Description GFR(mL/min/1.73 m(2)) 1 Kidney damage with normal or decreased GFR 90 2 Kidney damage with mild decrease in GFR 60-89 3 Moderate decrease in GFR 30-59 4 Severe decrease in GFR 15-29 5 Kidney failure <15 (or dialysis) 16 Reference Range and Interpretation: TnI (ng/mL) Interpretation Less Than 0.03 ng/mL Not supportive of diagnosis of ND 0.03 - 0.50 ng/mL Indeterminate: suggest serial studies if clinically indicated. Greater than 0.5 ng/mL Consistent with diagnosis of ND 17 SEE RESULT BELOW Name: AMANDA NAPIER : [address]: Rashel Azevedo MD Acct: [id number] Unit: [id number] AGE: 35 Location: ED Re05/25/16 SEX: M Status: DEP ER SPEC: [id number] JAIRO: 05/25/[address] [facility] [address]: Rashel Azevedo MD REQ: [id number] RECD: 05/25/16 STATUS: SARI BANUELOS DR: Laz Shields MD _ SOURCE: URINE SPDESC: ORDERED: Urine Culture Procedure Result Reported Site Urine Culture Final 05/26/16- 1617 ML No Growth (<1,000 CFU/mL) * ML - [facility] . END OF REPORT * ML=Testing performed at Main Lab DEPARTMENT OF PATHOLOGY, [address] [place] [address] Ahsan Fam M.D. Director [facility] # [id number] 18 Because ethnic data is not always readily available, this report includes an eGFR for both -Americans and non- Americans. The National Kidney Disease Education Program (NKDEP) does not endorse the use of the MDRD equation for patients that are not between the ages of 18 and 70, are , have extremes of body size, muscle mass, or nutritional status, or are non- or non-. According to the National Kidney Foundation, irrespective of diagnosis, the stage of the disease is based on the level of kidney function: Stage Description GFR(mL/min/1.73 m(2)) 1 Kidney damage with normal or decreased GFR 90 2 Kidney damage with mild decrease in GFR 60-89 3 Moderate decrease in GFR 30-59 4 Severe decrease in GFR 15-29 5 Kidney failure <15 (or dialysis) 19 Reference Range and Interpretation: TnI (ng/mL) Interpretation Less Than 0.03 ng/mL Not supportive of diagnosis of ND 0.03 - 0.50 ng/mL Indeterminate: suggest serial studies if clinically indicated. Greater than 0.5 ng/mL Consistent with diagnosis of ND 20 Please note: The following may produce a false positive D Dimer test: - Rheumatoid factor greater than 60 IU/ml - Plasma hemoglobin greater than 0.05 gm/dl - Bilirubin greater than 50 mg/dl - Lipids greater than 1000 mg/dl - FDP greater than 20 ug/ml 21 Desirable <150 Borderline high 150-199 High 200-499 Very High >500 22 Desirable <200 Borderline high 200-239 High >239 23 Low <40 Desirable: 40-60 High: >60 24 Desirable: <100 mg/dL Near Optimal: 100-129 mg/dL Borderline High: 130-159 mg/dL High: 160-189 mg/dL Very High: >189 mg/dL 25 Because ethnic data is not always readily available, this report includes an eGFR for both -Americans and non- Americans. The National Kidney Disease Education Program (NKDEP) does not endorse the use of the MDRD equation for patients that are not between the ages of 18 and 70, are , have extremes of body size, muscle mass, or nutritional status, or are non- or non-. According to the National Kidney Foundation, irrespective of diagnosis, the stage of the disease is based on the level of kidney function: Stage Description GFR(mL/min/1.73 m(2)) 1 Kidney damage with normal or decreased GFR 90 2 Kidney damage with mild decrease in GFR 60-89 3 Moderate decrease in GFR 30-59 4 Severe decrease in GFR 15-29 5 Kidney failure <15 (or dialysis) 26 Anion gap measurement may be of limited value in the presence of any alkalosis, especially in a combined acid base disorder. . 27 Because ethnic data is not always readily available, this report includes an eGFR for both -Americans and non- Americans. The National Kidney Disease Education Program (NKDEP) does not endorse the use of the MDRD equation for patients that are not between the ages of 18 and 70, are , have extremes of body size, muscle mass, or nutritional status, or are non- or non-. According to the National Kidney Foundation, irrespective of diagnosis, the stage of the disease is based on the level of kidney function: Stage Description GFR(mL/min/1.73 m(2)) 1 Kidney damage with normal or decreased GFR 90 2 Kidney damage with mild decrease in GFR 60-89 3 Moderate decrease in GFR 30-59 4 Severe decrease in GFR 15-29 5 Kidney failure <15 (or dialysis) 28 RUN DATE: 07/20/12 [facility] NMI LIVE PAGE 1 RUN TIME: 1000 Specimen Inquiry RUN USER: INTERFACE Name: AMANDA NAPIER Status: DEP ER Re07/18/12 Age/Sex: 31/M Unit#: [id number] Location: : 76 SPEC #: [id number] JAIRO: 07/18/12 STATUS: COMP REQ #: [id number] RECD: 07/18/[address] [facility] [address]: Roberto Carlos DRAKE,Rashel Joaquin SOURCE: URINE ENTR: 07/18/12 [facility] [address]: Oli DRAKE, Arsh Barragan [facility]: ORDERED: URINE C S ACT WKST: UR 07/20/12 #1 Procedure Result Verified Site > URINE CULTURE SENSITIVI Final -1000 ML FINAL: NO GROWTH DAY 2 (<1,000 CFU/mL) [facility] Permit #[id number] [address] [place] [address] DEPARTMENT OF PATHOLOGY, [address] [place] [address] [facility] Permit #[id number] Ahsan Fam M.D. Director Consuelo Herrera M.D. [employer]ana [employer] 29 RUN DATE: 02/17/12 [facility] NMI LIVE PAGE 1 RUN TIME: 105 Specimen Inquiry RUN USER: INTERFACE Name: AMANDA NAPIER Status: DEP CLI Re02/14/12 Age/Sex: 31/M Unit#: [id number] Location: [facility] : 76 SPEC #: [id number] JAIRO: 02/14/12 STATUS: COMP REQ #: [id number] RECD: 02/15/[address] [facility] [address]: Ignacio DRAKE,Tj Campos SOURCE: URINE ENTR: 02/15/[address]: Oli DRAKE, Arsh Barragan SPDESC: ORDERED: URINE C S QUERIES: SPECIMEN DESCRIPTION: URINE, CLEAN CATCH ACT WKST: UR 02/17/12 #1 Procedure Result Verified Site > URINE CULTURE SENSITIVI Final -1051 ML FINAL: NO GROWTH DAY 2 (<1,000 CFU/mL) ML - [facility] Permit #[id number] [address] [place] [address] DEPARTMENT OF PATHOLOGY, [address] [place] [address] [facility] Permit #[id number] Kirsten Seaman M.D. Banana Grader 30 RUN DATE: 01/30/12 [facility] NMI LIVE PAGE 1 RUN TIME: 1107 Specimen Inquiry RUN USER: INTERFACE Name: QUYENTHELMAAMANDA Madelaine Status: REG REF Re01/28/12 Age/Sex: 31/M Unit#: [id number] Location: [facility] : 76 SPEC #: [id number] JAIRO: 01/28/12-1206 STATUS: COMP REQ #: [id number] RECD: 01/28/[address] [facility] [address] SOURCE: THROAT ENTR: 01/28/[address]: QUE: ORDERED: THROAT CULTURE QUERIES: MEDENT REQUISITION # [id number] ACT WKST: B 01/30/12 #1 Procedure Result Verified Site > THROAT CULTURE FULL Final -1107 ML NORMAL THROAT LING FULL THROAT CULTURES ARE CLINICALLY INDICATED TO DETECT THE PRESENCE OF GROUP A STREP, ARCANOBACTERIUM AND YEAST. - [facility] Permit #[id number] [address] [place] [address] DEPARTMENT OF PATHOLOGY, [address] [place] [address] [facility] Permit #[id number] Ahsan Fam M.D. Director Consuelo Herrera M.D. Banana Grader 31 RUN DATE: 10/25/11 [facility] NMI LIVE PAGE 1 RUN TIME: 815 Specimen Inquiry RUN USER: INTERFACE Name: QUYENTHELMAAMANDA Madelaine Status: ANGELA ER Re10/22/11 Age/Sex: 30/M Unit#: [id number] Location: [facility] : 76 SPEC #: [id number] JAIRO: 10/23/11 STATUS: SARI REQ #: [id number] RECD: 10/23/[address]: Ayden Garcia DO SOURCE: THROAT ENTR: 10/23/[address]: Oli DRAKE, Arsh Barragan SPDESC: ORDERED: RAPID STREP A, THROAT-BETA STR ACT WKST: BS 12/29/11 #1 Procedure Result Verified Site > RAPID STREP A Final -0056 ML RAPID STREP NEGATIVE FOR GROUP A STREP BY ENZYME IMMUNOASSAY The iron launder operator and regulatory agencies both recommend that a throat culture for beta strep be performed if a Rapid Group A Strep assay yields a negative result. Therefore a culture will be automatically performed on all negative samples. > THROAT-BETA STREP CULTURE Final -0816 ML NEGATIVE FOR GROUP A BETA STREPTOCOCCUS ML - [facility] Permit #[id number] [address] [place] [address] DEPARTMENT OF PATHOLOGY, [address] [place] [address] [facility] Permit #[id number] Ahsan Fam M.D. Director Consuelo Herrera M.D. Banana Grader 32 NO MRSA ISOLATED 33 Anion gap measurement may be of limited value in the presence of any alkalosis, especially in a combined acid base disorder. . 34 A metabolite of Naproxen, O-desmethylnaproxen, has been shown to interfere with the [place]rass[place] method for measuring total bilirubin. Samples from patients who have taken Naproxen have shown spurious elevation in total bilirubin levels. 35 Because ethnic data is not always readily available, this report includes an eGFR for both -Americans and non- Americans. The National Kidney Disease Education Program (NKDEP) does not endorse the use of the MDRD equation for patients that are not between the ages of 18 and 70, are , have extremes of body size, muscle mass, or nutritional status, or are non- or non-. According to the National Kidney Foundation, irrespective of diagnosis, the stage of the disease is based on the level of kidney function: Stage Description GFR(mL/min/1.73 m(2)) 1 Kidney damage with normal or decreased GFR 90 2 Kidney damage with mild decrease in GFR 60-89 3 Moderate decrease in GFR 30-59 4 Severe decrease in GFR 15-29 5 Kidney failure <15 (or dialysis) 36 Imm. NE 1 37 Anion gap measurement may be of limited value in the presence of any alkalosis, especially in a combined acid base disorder. . 38 A metabolite of Naproxen, O-desmethylnaproxen, has been shown to interfere with the Jendrassik-Neisha method for measuring total bilirubin. Samples from patients who have taken Naproxen have shown spurious elevation in total bilirubin levels. 39 Because ethnic data is not always readily available, this report includes an eGFR for both -Americans and non- Americans. The National Kidney Disease Education Program (NKDEP) does not endorse the use of the MDRD equation for patients that are not between the ages of 18 and 70, are , have extremes of body size, muscle mass, or nutritional status, or are non- or non-. According to the National Kidney Foundation, irrespective of diagnosis, the stage of the disease is based on the level of kidney function: Stage Description GFR(mL/min/1.73 m(2)) 1 Kidney damage with normal or decreased GFR 90 2 Kidney damage with mild decrease in GFR 60-89 3 Moderate decrease in GFR 30-59 4 Severe decrease in GFR 15-29 5 Kidney failure <15 (or dialysis) 40 Anion gap measurement may be of limited value in the presence of any alkalosis, especially in a combined acid base disorder. . 41 Note change in reference range as of 06/17/08. The change was based on recommendations from the [place] [employer]. 42 Please note change in reference range effective 08 . 43 A metabolite of Naproxen, O-desmethylnaproxen, has been shown to interfere with the [place]rass[place] method for measuring total bilirubin. Samples from patients who have taken Naproxen have shown spurious elevation in total bilirubin levels. 44 Because ethnic data is not always readily available, this report includes an eGFR for both -Americans and non- Americans. The National Kidney Disease Education Program (NKDEP) does not endorse the use of the MDRD equation for patients that are not between the ages of 18 and 70, are , have extremes of body size, muscle mass, or nutritional status, or are non- or non-. According to the National Kidney Foundation, irrespective of diagnosis, the stage of the disease is based on the level of kidney function: Stage Description GFR(mL/min/1.73 m(2)) 1 Kidney damage with normal or decreased GFR 90 2 Kidney damage with mild decrease in GFR 60-89 3 Moderate decrease in GFR 30-59 4 Severe decrease in GFR 15-29 5 Kidney failure <15 (or dialysis) 45 New Reference Range and Interpretation effective 07/31/2002 TnI (ng/ml) INTERPRETATION Less Than 0.06 ng/mL NOT SUPPORTIVE OF DIAGNOSIS OF ND 0.06 - 0.50 ng/ml INDETERMINATE: SUGGEST SERIAL STUDIES IF CLINICALLY INDICATED. Greater than 0.5 ng/mL CONSISTENT WITH DIAGNOSIS OF ND . 46 THE URINE SPECIMEN WAS TESTED AT THE LISTED CUTOFFS: DRUG CLASS TEST LEVEL (NG/ML) AMPHETAMINES 300 BARBITUATES 200 BENZODIAZEPINE METABOLITES 200 COCAINE METABOLITES 300 CANNABINOIDS 25 OPIATES 200 PCP 25 THIS IS A SCREENING PROCEDURE. POSITIVE RESULTS ARE NOT CONFIRMED. SPECIMEN WAS RECEIVED WITHOUT CHAIN OF CUSTODY. RESULTS SHOULD BE USED FOR MEDICAL PURPOSES ONLY. . 47 Imm. NE 1 48 PLEASE NOTE NEW REFERENCE RANGES. 49 Anion gap measurement may be of limited value in the presence of any alkalosis, especially in a combined acid base disorder. . 50 Note change in reference range as of 06/17/08. The change was based on recommendations from the [place] [employer]. 51 Please note change in reference range effective 08 . 52 A metabolite of Naproxen, O-desmethylnaproxen, has been shown to interfere with the Jendrassik-Neisha method for measuring total bilirubin. Samples from patients who have taken Naproxen have shown spurious elevation in total bilirubin levels. 53 Because ethnic data is not always readily available, this report includes an eGFR for both -Americans and non- Americans. The National Kidney Disease Education Program (NKDEP) does not endorse the use of the MDRD equation for patients that are not between the ages of 18 and 70, are , have extremes of body size, muscle mass, or nutritional status, or are non- or non-. According to the National Kidney Foundation, irrespective of diagnosis, the stage of the disease is based on the level of kidney function: Stage Description GFR(mL/min/1.73 m(2)) 1 Kidney damage with normal or decreased GFR 90 2 Kidney damage with mild decrease in GFR 60-89 3 Moderate decrease in GFR 30-59 4 Severe decrease in GFR 15-29 5 Kidney failure <15 (or dialysis) 54 CHOLESTEROL INTERPRETATION: Desirable: Less than 200 MG/DL Borderline-High Risk: 200-239 MG/DL High-Risk: 240 MG/DL and over 55 HDL INTERPRETATION: Undesirable: High Risk: Less than 40 MG/DL Desirable: Low Risk: Greater than 60 MG/DL 56 LDL INTERPRETATION: Low Risk Optimal Level: LDL Less than 100 MG/DL Near or Above Optimal: LDL 100-129 MG/DL Borderline High Risk: LDL 130-159 MG/DL High Risk: LDL 160-189 MG/DL Very High Risk: LDL Greater than 189 MG/DL 57 A metabolite of Naproxen, O-desmethylnaproxen, has been shown to interfere with the [place]endrassik-[place] method for measuring total bilirubin. Samples from patients who have taken Naproxen have shown spurious elevation in total bilirubin levels. 58 BETA STREP GROUP B MOD^MODERATE^QTY NORMAL LING MOD^MODERATE^QTY 59 FINAL: NO GROWTH DAY 2 (<1,000 CFU/mL) 60 Test Performed by: [facility] Dpt of Lab Med and Pathology [address] [place] [address] Inspector Final Assembly Electrical: Darian Paul III, M.D. 61 Interpretation: 10-24 (mild to moderate deficiency) -- REFERENCE VALUE -- 25-HYDROXY D TOTAL (D2+D3) Optimum levels in the normal population are 25-80 Test Performed by: [facility] Dpt of Lab Med and Pathology [address] [place] [address] Inspector Final Assembly Electrical: Darian Paul III, M.D. 62 PLEASE NOTE CHANGE IN REFERENCE RANGE OF 11/04/06. 63 Please note change in reference range effective 08 . 64 ICTOTEST IS A QUALITATIVE CONFIRMATORY TEST FOR BILIRUBIN. 65 CHOLESTEROL INTERPRETATION: Desirable: Less than 200 MG/DL Borderline-High Risk: 200-239 MG/DL High-Risk: 240 MG/DL and over 66 HDL INTERPRETATION: Undesirable: High Risk: Less than 40 MG/DL Desirable: Low Risk: Greater than 60 MG/DL 67 LDL INTERPRETATION: Low Risk Optimal Level: LDL Less than 100 MG/DL Near or Above Optimal: LDL 100-129 MG/DL Borderline High Risk: LDL 130-159 MG/DL High Risk: LDL 160-189 MG/DL Very High Risk: LDL Greater than 189 MG/DL 68 Anion gap measurement may be of limited value in the presence of any alkalosis, especially in a combined acid base disorder. . 69 Note change in reference range as of 06/17/08. The change was based on recommendations from the [place] [employer]. 70 Please note change in reference range effective 08 . 71 A metabolite of Naproxen, O-desmethylnaproxen, has been shown to interfere with the Jendrassik-Neisha method for measuring total bilirubin. Samples from patients who have taken Naproxen have shown spurious elevation in total bilirubin levels. 72 Because ethnic data is not always readily available, this report includes an eGFR for both -Americans and non- Americans. The National Kidney Disease Education Program (NKDEP) does not endorse the use of the MDRD equation for patients that are not between the ages of 18 and 70, are , have extremes of body size, muscle mass, or nutritional status, or are non- or non-. According to the National Kidney Foundation, irrespective of diagnosis, the stage of the disease is based on the level of kidney function: Stage Description GFR(mL/min/1.73 m(2)) 1 Kidney damage with normal or decreased GFR 90 2 Kidney damage with mild decrease in GFR 60-89 3 Moderate decrease in GFR 30-59 4 Severe decrease in GFR 15-29 5 Kidney failure <15 (or dialysis) 73 -- REFERENCE VALUE -- 10-60 (a.m. draw) Test Performed by: [facility] Dpt of Lab Med and Pathology [address] [place] [address] Inspector Final Assembly Electrical: Darian Paul III, M.D. 74 BETA STREP GROUP B 10^1-10,000 ORGANISMS/ML (FEW)^CCU Procedures Date CPT Code Description Status 10/03/2017 67463 Diffusing Capacity Completed 10/03/2017 49035 Plethysmography Determination Lung Volumes & Per Completed Airway Resist 10/03/2017 16533 Spirometry Incl Graphic Record Completed 07/23/2017 61454 Polysomnography Sleep Staging 4+ Parameters Completed 02/28/2012 43937 Pulmonary Function><Bronchodilator Completed 08/04/2010 63153 Noninvasive Ear Or Pulse Oximetry For Oxygen Saturation Completed 06/30/2010 33514 Treadmill Interp/Report Only Completed 06/30/2010 81372 Stress Test Supervsn W/Out I/R Completed 06/13/2010 47391 Noninvasive Ear Or Pulse Oximetry For Oxygen Saturation Completed 06/13/2010 25824 EKG Tracing & Interpretation Completed Encounters Type Date Location Provider CPT E/M Dx Office Visit 09/13/2017 [place] [address] J45.909 9:45a [facility] G47.33 K21.9 Office Visit 08/16/2017 7:30a [facility] [address] J45.909 [facility] G47.33 E66.01 K21.9 Office Visit 08/14/2017 9:30a [facility] Cassie Leong 15689 G47.33 [facility] RN[facility]- Z68.39 Office Visit 05/22/2017 8:45a [facility] [address] G47.33 [facility] E66.01 Z68.39 Office Visit 06/26/2016 11:40a [facility] [place] [address] J18.8 Nada Office Visit 06/18/2016 2:00p [facility] [place] [address] M89.8x8 Mo M54.9 R10.10 Office Visit 06/13/2016 1:00p [facility] Internal Lesley Mari, N.P. 96196 T37.0x5A Medicine - Mo L27.1 N30.00 Office Visit 06/11/2016 11:40a [facility] Medicine Claude Rose 65535 R10.10 - Mo Curtis R39.12 Office Visit 06/08/2016 1:00p [facility] Lesley Mari N.P. 29036 J45.30 - Nada J30.9 Office Visit 06/06/2016 2:20p [facility] Lesley Mari N.P. 56948 J45.30 - Nada J30.9 Office Visit 05/31/2016 2:40p [facility] Medicine - David Cleveland, BAND SAWYER 37294 R10.9 Nada M89.8x8 Office Visit 04/17/2016 1:20p [facility] Arsh Baird M.D. 52498 E03.9 Medicine - [address] E78.2 J45.909 F41.9 Z12.5 Z00.00 Office Visit 04/06/2016 3:00p [facility] Laz Shields M.D. 53624 E03.9 - Nada E78.2 R05 G56.01 M54.5 Office Visit 03/11/2012 4:40p [facility] Qiana Nichols M.D. 22769 461.1 - Nada Office Visit 03/04/2012 10:40a [facility] rAsh Baird, 23825 600.20 - Mo Curtis Office Visit 02/25/2012 3:20p [facility] Arsh Baird 98410 530.81 - Mo Curtis 272.2 493.90 244.9 Office Visit 02/15/2012 3:30p [facility] Claude Rose, 52668 599.72 - Mo Curtis 466.0 Office Visit 01/31/2012 2:15p [facility] Karly Leo 60930 719.45 - Mo Curtis 244.8 780.79 530.81 Office Visit 01/28/2012 11:30a [facility] Karly Leo 64239 465.9 Mo Curtis Office Visit 01/24/2012 2:30p [facility], 83627 724.3 C.MDaina Curtis 848.8 Office Visit 01/15/2012 3:20p [facility] Arsh Baird 98078 719.45 Medicine Mo Curtis Office Visit 01/08/2012 9:00a [facility], 21712 785.6 Medicine - Mo Curtis Office Visit 01/01/2012 3:20p [facility], 61076 608.1 Medicine Mo Curtis 729.2 244.8 272.4 Office Visit 11/01/2011 2:30p [facility] Karly Leo M.D. 89094 461.9 - Nada 786.2 Office Visit 08/09/2011 4:00p DO Not Use [facility] At Claude Rose, 23590 466.0 Dulce Curtis Office Visit 08/09/2011 10:15a [facility] 24144 354.0 Indira Robles M.D. Office Visit 08/01/2011 2:40p DO Not Use [employer] At Arsh Baird, 41759 354.0 Dulce Curtis 244.9 272.4 Office Visit 06/18/2011 1:40p DO Not Use [employer] At Arsh Baird, 10340 354.0 Dulce Curtis Office Visit 05/31/2011 1:45p DO Not Use [employer] At Brooke Mcclain, N.P. 47646 724.2 [facility] Office Visit 03/08/2011 2:40p DO Not Use [employer] At Qiana Nichols M.D. 71825 722.91 [place] Office Visit 02/26/2011 4:00p DO Not Use [employer] At Arsh Baird, 51301 722.91 Dulce Curtis 278.00 244.9 272.4 Office Visit 01/03/2011 4:40p DO Not Use [employer] At Arsh Baird M.D. 56371 461.9 Dulce 724.2 Office Visit 12/15/2010 2:40p DO Not Use [employer] At Francisco Mcdonald, 08155 079.99 Dulce Curtis,FACP Office Visit 12/05/2010 2:40p DO Not Use [employer] At Arsh Baird 27227 780.79 [place] M.D. Office Visit 11/29/2010 1:20p DO Not Use [employer] At [facility], 20130 466.0 [place] M.D. 530.81 272.4 Office Visit 11/07/2010 4:20p DO Not Use [employer] Developer At [facility], 27236 722.91 [place] M.D. Office Visit 10/30/2010 9:40a DO Not Use [employer] Developer At [facility] 65842 789.03 [place] M.D. Office Visit 10/17/2010 11:20a DO Not Use [employer] At [facility], 02314 722.91 [place] M.D. 300.02 Office Visit 10/02/2010 4:20p DO Not Use [employer] Developer At [facility], 10363 722.0 [place] M.D. Office Visit 09/18/2010 1:00p DO Not Use [employer] At [facility], 80051 752.69 [place] M.D. 757.39 722.91 Office Visit 09/14/2010 3:30p [facility] Lew Herring, 10805 723.1 Of Django Developer M.D. Office Visit 09/06/2010 4:20p DO Not Use [employer] Developer At [facility], 11394 722.0 [place] M.D. Office Visit 08/28/2010 9:40a DO Not Use [employer] Developer At [facility], [id number] 722.91 [place] M.D. 272.4 Office Visit 08/11/2010 10:20a DO Not Use [employer] Developer At [place] Jennifer Rose, 72500 722.0 [place] M.D. Office Visit 08/07/2010 3:00p DO Not Use [employer] Developer At [place] Rose, 98550 722.0 [place] M.D. Office Visit 08/04/2010 1:20p DO Not Use Django Developer At Francisco Mcdonald, 76901 722.0 [place] M.D.,FACP 493.00 Office Visit 07/31/2010 4:00p DO Not Use Django Developer At [facility], 51971 722.91 [place] M.D. Office Visit 07/24/2010 4:40p DO Not Use Django Developer At [facility], 72003 722.91 [facility] M.DNatalie 466.0 Office Visit 07/18/2010 4:00p DO Not Use Django Developer At [facility], 85773 722.91 [facility] M.DNatalie 477.9 Office Visit 06/30/2010 10:00a [facility] Robi Louise, 40520 794.31 M.D. 786.50 272.4 Office Visit 06/28/2010 10:40a DO Not Use Django Developer At [facility], [address]18 786.50 [facility] M.[facility]. Office Visit 06/21/2010 2:40p DO Not Use Django Developer At [facility], 30819 780.79 [facility] M.D. 300.02 272.4 786.59 Office Visit 06/13/2010 2:20p DO Not Use [employer] Developer At Arsh Baird M.D. 22472 244.8 [facility] 571.49 307.49 466.0 278.00 300.02 786.50 Office Visit 01/31/2010 8:30a DO Not Use [employer] Developer At Kahlil Montgomery M.D. 45916 465.9 [facility] 693.0 Office Visit 01/24/2010 4:00p DO Not Use [employer] Developer At Kahlil Montgomery M.D. 12230 388.30 [facility] Office Visit 01/20/2010 3:00p DO Not Use [employer] Developer At Kahlil Montgomery M.D. 69755 995.3 [facility] Office Visit 01/17/2010 3:45p DO Not Use [employer] Developer At Kahlil Montgomery M.D. 85350 789.01 [facility] Office Visit 01/10/2010 3:00p DO Not Use [employer] Developer At Kahlil Montgomery M.D. 67322 272.0 [facility] 607.1 790.6 Office Visit 01/03/2010 8:30a DO Not Use [employer] Developer At Kahlil Montgomery M.D. 99657 465.9 [facility] 477.9 Office Visit 12/27/2009 10:45a DO Not Use [employer] Developer At Kahlil Montgomery M.D. 23997 995.20 [facility] Office Visit 12/23/2009 3:00p DO Not Use Django Developer At [facility], 79497 463 Dulce Curtis Office Visit 12/19/2009 3:30p DO Not [place] [address] 477.9 [facility] 847.1 Office Visit 12/16/2009 4:00p DO Not Use Django Developer At [facility], 35709 477.9 [place] 307.49 300.00 786.50 790.4 Plan of Care Future Appointment(s):01/28/2019 11:30 am - Kari Jensen MD at [facility]01/28/2018 - Kari Jensen MDJ45.909 Unspecified asthma, uncomplicatedFollow up:1 yearG47.33 Obstructive sleep apnea (adult) ( pediatric)E66.09 Other obesity due to excess calories
[2018-01-30 12:16] VITALS: BP 148/99
--- NOTE | 2018-01-30 13:14 | UC ---
Respiratory Complaint HPI - HPI Summary HPI Summary: 37 yo WM c/o cough x 3 weeks , cough not improving in spite of taking a course of Z shant after a bout of the flu 2 weeks ago. Denies f/c/sputum but still c/o pleuritic CP and refractory nasal congestion - History of Current Complaint Chief Complaint: UCRespiratory Stated Complaint: COUGH,CONGESTED Time Seen by Provider: 01/30/18 12:39 Hx Obtained From: Patient Onset/Duration: Lasting Weeks, Still Present Severity Initially: Moderate Severity Currently: Moderate Pain Intensity: 0 Character: Cough: Nonproductive Aggravating Factors: Deep Breaths Alleviating Factors: Nothing - Allergies/Home Medications Allergies/Adverse Reactions: Allergies Allergy/AdvReac Type Severity Reaction Status Date / Time albuterol [From Ventolin HFA] Allergy Difficulty Verified 01/30/18 12:52 Breathing bupropion Allergy Difficulty Verified 01/30/18 12:52 Breathing buspirone [From BuSpar] Allergy Dizziness Verified 01/30/18 12:52 cephalexin Allergy Rash Verified 01/30/18 12:52 codeine Allergy Difficulty Verified 01/30/18 12:52 Breathing doxycycline Allergy Rash Verified 01/30/18 12:52 escitalopram [From Lexapro] Allergy See Comment Verified 01/30/18 12:52 famotidine Allergy Rash Verified 01/30/18 12:52 fluticasone Allergy Difficulty Verified 01/30/18 12:52 [From Advair Diskus] Breathing Iodinated Contrast- Oral and Allergy Itching Verified 01/30/18 12:52 IV Dye moxifloxacin Allergy Hives Verified 01/30/18 12:52 MS Albuterol [From Ventolin] Allergy Difficulty Verified 01/17/18 14:57 Breathing omeprazole [From Prilosec] Allergy Rash Verified 01/30/18 12:52 Penicillins Allergy Rash Verified 01/30/18 12:52 Quinolones Allergy Rash Verified 01/30/18 12:52 salmeterol Allergy Difficulty Verified 01/30/18 12:52 [From Advair Diskus] Breathing sertraline [From Zoloft] Allergy Hallucinati Verified 01/30/18 12:52 ons sulfamethoxazole Allergy Rash Verified 01/30/18 12:52 [From Bactrim] trimethoprim [From Bactrim] Allergy Rash Verified 01/30/18 12:52 MS Sertraline [From Zoloft] AdvReac Severe Hallucinati Verified 01/17/18 14:57 ons MS Buspirone [From Buspar] AdvReac Mild Dizziness Verified 01/17/18 14:57 MS Escitalopram AdvReac Unknown See Comment Verified 01/17/18 14:57 [From Lexapro] MS Citalopram [From Celexa] AdvReac See Comment Verified 01/17/18 14:57 PMH/Surg Hx/FS Hx/Imm Hx Previously Healthy: Yes Other History Of: Negative For: HIV, Hepatitis B, Hepatitis C, Anticoagulant Therapy - Surgical History Surgical History: Yes Surgery Procedure, Year, and Place: RIGHT ELBOW RECONSTRUCTION SURGERY 1983,. SLEEP APNEA SURGERY 2010 - Tonsilectomy, uvula, stretching throat. CHOLECYSTECTOMY - 09/10/16. cicumcision with biopsy. R carpal tunnel 2017 - Family History Known Family History: Positive: Cardiac Disease - two uncles in their 40s, no primary relatives, Hypertension, Diabetes, Other - TIA on paternal side, cancer on both sides, blood clots Family History: FHx of seasonal allergies - both parents - Social History Alcohol Use: None Substance Use Type: None Substance Use Comment - Amount & Last Used: benzo's in the past Smoking Status (MU): Former Smoker Type: Cigarettes Amount Used/How Often: 1/2 ppd Length of Time of Smoking/Using Tobacco: 15 yrs Have You Smoked in the Last Year: No When Did the Patient Quit Smoking/Using Tobacco: 2016 Household Exposure Type: Cigarettes - Immunization History Most Recent Influenza Vaccination: fall 2015 Most Recent Tetanus Shot: utd Most Recent Pneumonia Vaccination: fall 2015 Review of Systems Constitutional: Negative Skin: Negative Eyes: Negative ENT: Negative Respiratory: Cough Cardiovascular: Negative Gastrointestinal: Negative Genitourinary: Negative Motor: Negative Neurovascular: Negative Musculoskeletal: Negative Neurological: Negative Psychological: Negative All Other Systems Reviewed And Are Negative: Yes Physical Exam Triage Information Reviewed: Yes Vital Signs: Initial Vital Signs Temp 36.2 C 01/30/18 12:11 Pulse 75 01/30/18 12:11 Resp 16 01/30/18 12:11 BP 148/99 01/30/18 12:11 Pulse Ox 98 01/30/18 12:11 Eye Exam: Normal ENT Exam: Normal Dental Exam: Normal Neck exam: Normal Neck: Positive: No Lymphadenopathy Respiratory: Positive: Other: - Coarse B/S B/L. Negative: Crackles, Rhonchi, Stridor, Wheezing Cardiovascular Exam: Normal Abdominal Exam: Normal Musculoskeletal Exam: Normal Neurological Exam: Normal Psychological Exam: Normal Skin Exam: Normal UC Diagnostic Evaluation - Laboratory O2 Sat by Pulse Oximetry: 98 Respiratory Course/Dx - Course Course Of Treatment: CXR- Faint bibasilar haziness, and in light of persistent cough x 3 weeks wiht h/o asthma, will tx with additional course of abx but due to his "many drug allergies" will do another round of Z-shant with PO prednisone - Differential Dx/Diagnosis Provider Diagnoses: asthmatic bronchitis Discharge - Sign-Out/Discharge Documenting (check all that apply): Discharge - Discharge Plan Condition: Stable Disposition: HOME Prescriptions: Azithromycin TAB* [Zithromax TAB (Z-SHANT) 250 mg #6 tabs] 2 tab PO .TODAY, THEN 1 DAILY #1 shant predniSONE TAB* [Deltasone TAB*] 10 mg PO DAILY 5 Days #5 tab Patient Education Materials: Acute Bronchitis (ED) Referrals: Shad Uriostegui MD [Primary Care Provider] - - Billing Disposition and Condition Condition: STABLE Disposition: HOME
--- NOTE | 2018-01-30 13:30 | RAD ---
INDICATION: Bilateral chest pain, shortness of breath, cough. Cough and cold symptoms for 3 weeks. History of asthma. COMPARISON: January 17, 2018 TECHNIQUE: Dual energy PA and routine lateral views of the chest were obtained. REPORT: Clear lungs and pleural spaces. Negative for pneumothorax. The heart, pulmonary vasculature, and mediastinal contours are unremarkable. Unremarkable osseous structures and soft tissue contours. IMPRESSION: No evidence for pneumonia. Negative exam.
== END 2018-01-30 13:53 | disposition home or self-care (01) ==
LOC: UCEAST 12:06
DX: J45.909 Unspecified asthma, uncomplicated (principal); Z88.5 Allergy status to narcotic agent; Z88.0 Allergy status to penicillin; Z88.2 Allergy status to sulfonamides; Z88.8 Allergy status to other drugs, medicaments and biological substances; Z88.1 Allergy status to other antibiotic agents; Z91.041 Radiographic dye allergy status; Z87.891 Personal history of nicotine dependence
CPT/HCPCS: 71046; 99212; G0463

== ENCOUNTER 2018-04-12 07:24 | Emergency (ER) | payer OTHER ==
[2018-04-12 08:37] VITALS: BP 133/87
--- NOTE | 2018-04-12 09:13 | UC ---
Respiratory Complaint HPI - HPI Summary HPI Summary: 37 y/o male presents to the urgent care c/o sinus congestion, pain, FOX and yellowish nasal discharge, w/ +PND for the past week. Pt also states mild sore throat. Pain is 4/10. He has taken ibuprofen PO to alleviate symptoms w/o any improvement. Pt states multiple medication allergies and states only Z-shant is the one that works. Pt denies fever, SOB, chest pain, cough, abdominal pain, N/v/D, - History of Current Complaint Chief Complaint: UCGeneralIllness Stated Complaint: URI Time Seen by Provider: 04/12/18 09:05 Hx Obtained From: Patient Onset/Duration: Gradual Onset, Lasting Weeks - 1 week, Still Present, Worse Since - yesterday Timing: Constant Severity Initially: Mild Severity Currently: Mild Pain Intensity: 4 Pain Scale Used: 0-10 Numeric Character: Cough: Nonproductive Aggravating Factors: Recumbent Position Alleviating Factors: OTC Meds Associated Signs And Symptoms: Positive: URI, Nasal Congestion, Sinus Discomfort. Negative: Dyspnea, Fever, Chills, Wheezing Related History: Seasonal Allergies - Risk Factors Pulmonary Embolism Risk Factors: Negative Cardiac Risk Factors: Negative Pseudomonas Risk Factors: Negative Tuberculosis Risk Factors: Negative - Allergies/Home Medications Allergies/Adverse Reactions: Allergies Allergy/AdvReac Type Severity Reaction Status Date / Time albuterol [From Ventolin HFA] Allergy Difficulty Verified 01/30/18 12:52 Breathing bupropion Allergy Difficulty Verified 01/30/18 12:52 Breathing buspirone [From BuSpar] Allergy Dizziness Verified 01/30/18 12:52 cephalexin Allergy Rash Verified 01/30/18 12:52 citalopram [From Celexa] Allergy See Comment Verified 04/12/18 08:29 codeine Allergy Difficulty Verified 01/30/18 12:52 Breathing doxycycline Allergy Rash Verified 01/30/18 12:52 escitalopram [From Lexapro] Allergy See Comment Verified 01/30/18 12:52 famotidine Allergy Rash Verified 01/30/18 12:52 fluticasone Allergy Difficulty Verified 01/30/18 12:52 [From Advair Diskus] Breathing Iodinated Contrast- Oral and Allergy Itching Verified 01/30/18 12:52 IV Dye moxifloxacin Allergy Hives Verified 01/30/18 12:52 omeprazole [From Prilosec] Allergy Rash Verified 01/30/18 12:52 Penicillins Allergy Rash Verified 01/30/18 12:52 Quinolones Allergy Rash Verified 01/30/18 12:52 salmeterol Allergy Difficulty Verified 01/30/18 12:52 [From Advair Diskus] Breathing sertraline [From Zoloft] Allergy Hallucinati Verified 01/30/18 12:52 ons sulfamethoxazole Allergy Rash Verified 01/30/18 12:52 [From Bactrim] trimethoprim [From Bactrim] Allergy Rash Verified 01/30/18 12:52 PMH/Surg Hx/FS Hx/Imm Hx Previously Healthy: Yes Endocrine History: Hypothyroidism Psychological History: Depression Other History Of: Negative For: HIV, Hepatitis B, Hepatitis C, Anticoagulant Therapy - Surgical History Surgical History: Yes Surgery Procedure, Year, and Place: RIGHT ELBOW RECONSTRUCTION SURGERY 1983,. SLEEP APNEA SURGERY 2010 - Tonsilectomy, uvula, stretching throat. CHOLECYSTECTOMY - 09/10/16. cicumcision with biopsy. R carpal tunnel 2017 - Family History Known Family History: Positive: Cardiac Disease - two uncles in their 40s, no primary relatives, Hypertension, Diabetes Family History: FHx of seasonal allergies - both parents. TIA on paternal side, cancer on both sides, blood clots - Social History Occupation: Employed Full-time Lives: With Family Alcohol Use: None Substance Use Type: None Substance Use Comment - Amount & Last Used: benzo's in the past Smoking Status (MU): Former Smoker Type: Cigarettes Amount Used/How Often: 1/2 ppd Length of Time of Smoking/Using Tobacco: 15 yrs Have You Smoked in the Last Year: No When Did the Patient Quit Smoking/Using Tobacco: 2016 Household Exposure Type: Cigarettes - Immunization History Most Recent Influenza Vaccination: fall 2015 Most Recent Tetanus Shot: utd Most Recent Pneumonia Vaccination: fall 2015 Review of Systems Constitutional: Negative Skin: Negative Eyes: Negative ENT: Sore Throat, Nasal Discharge, Sinus Congestion, Sinus Pain/Tenderness Respiratory: Negative Cardiovascular: Negative Gastrointestinal: Negative Genitourinary: Negative Motor: Negative Neurovascular: Negative Musculoskeletal: Negative Neurological: Headache Psychological: Negative Is Patient Immunocompromised?: No All Other Systems Reviewed And Are Negative: Yes Physical Exam - Summary Physical Exam Summary: Vitals: reviewed General: Well developed, well-nourished male patient with NAD. Head and face: Normocephalic and atraumatic, Positive tenderness over the frontal and maxillary sinuses.. Eyes: PERRLA, EOMI x 2. Normal conjunctiva. No eye discharge. ENT: Ears and TM with normal limits. Nose: edematous and erythematous nasal mucosa with with yellowish discharge and erythematous mucosa. Pharynx with erythema, no exudate. +PND yellowish Neck: Supple, no JVD, no carotid bruits and no lymphadenopathy. Lungs: clear, no rales, no rhonchi, no wheezes. CVS: RRR, S1 and S2 present no murmurs or gallops appreciated. Abdomen: soft nontender with positive bowel sounds. Extremities: no edema noted. Neuro: WNL. Skin: warm and dry Triage Information Reviewed: Yes Vital Signs: Initial Vital Signs Temp 98.5 F 04/12/18 08:31 Pulse 82 04/12/18 08:31 Resp 18 04/12/18 08:31 BP 133/87 04/12/18 08:31 Pulse Ox 95 04/12/18 08:31 UC Diagnostic Evaluation - Laboratory O2 Sat by Pulse Oximetry: 95 Respiratory Course/Dx - Course Course Of Treatment: 37 y/o male presents to the urgent care c/o sinus congestion, pain, FOX and yellowish nasal discharge, w/ +PND for the past week. Pt also states mild sore throat. Pain is 4/10. He has taken ibuprofen PO to alleviate symptoms w/o any improvement. Pt states multiple medication allergies and states only Z-shant is the one that works. Pt denies fever, SOB, chest pain, cough, abdominal pain, N/v/D. Hx obtained. Pt w/ acute bacterial sinusitis on examination. Pt with 1 week of symptoms getting worse. Pt Rx Azitromycin PO. Advised to use saline drops to clear sinuses since he is allergi to fluticasone. Also advised to take Claritin PO. Discharge instructions explained to Pt. Advised to Return to the clinic or PCP if symptoms do not improve.Pt understood and agreed with plan of care. - Differential Dx/Diagnosis Differential Diagnosis/HQI/PQRI: Asthma, Bronchitis, Laryngitis, Lower Resp Infection, Sinusitis Provider Diagnoses: 1- Acute bacterial sinusitis Discharge - Sign-Out/Discharge Documenting (check all that apply): Discharge/Admit/Transfer - D/c home - Discharge Plan Condition: Stable Disposition: HOME Prescriptions: Azithromyxin SHANT (NF) [Z-Shant (Zithromax) 250 mg tabs #6] 2 tab PO .TODAY, THEN 1 DAILY #6 tab Patient Education Materials: Sinusitis (ED) Referrals: Shad Uriostegui MD [Primary Care Provider] - 3 Days Additional Instructions: 1- Please increase fluid intake and rest. take full course of antibiotic to avoid resistance 2-Use saline drops to clear sinuses 3-Take Claritin PO to alleviates sinus congestion 4-Return to the clinic or PCP 3 days if symptoms do not improve for further management and treatment - Billing Disposition and Condition Condition: STABLE Disposition: Home
== END 2018-04-12 09:32 | disposition home or self-care (01) ==
LOC: UCEAST 07:24
DX: J01.90 Acute sinusitis, unspecified (principal); E03.9 Hypothyroidism, unspecified; F32.9 Major depressive disorder, single episode, unspecified; Z88.5 Allergy status to narcotic agent; Z88.0 Allergy status to penicillin; Z88.2 Allergy status to sulfonamides; Z88.8 Allergy status to other drugs, medicaments and biological substances; Z88.1 Allergy status to other antibiotic agents; Z91.041 Radiographic dye allergy status; Z87.891 Personal history of nicotine dependence; Z82.49 Family history of ischemic heart disease and other diseases of the circulatory system; Z80.9 Family history of malignant neoplasm, unspecified; Z83.2 Family history of diseases of the blood and blood-forming organs and certain disorders involving the immune mechanism
CPT/HCPCS: 99212; G0463

== ENCOUNTER 2018-05-19 01:28 | Emergency (ER) | payer OTHER ==
[2018-05-19] MEDS ORDERED: Ibuprofen TAB* 800 MG PO ONE (02:36)
[2018-05-19] MEDS ORDERED: LoraTADine TAB(NF) 10 MG TAB (AUTOSUB to CETIRIZINE) PO ONE (02:36)
[2018-05-19] MEDS ORDERED: Pseudoephedrine TAB* 30 MG PO ONE (02:37)
--- NOTE | 2018-05-19 03:34 | ED ---
HPI Chest Pain - HPI Summary HPI Summary: This is scribe Hari Cordero documenting for attending Dr. Mabel Patel MD. A 37 y/o male presents to the ED c/o chest congestion. Additionally c/o nasal congestion. As per triage, "37y/o male PMH of HLD, asthma, sleep apnea, anxiety , hypothyroidism presents to ER with c/c of sinus and chest congestion which is worse with exertion". According to the patient he has been experiencing chest congrestion and nasal congestion for the past week. Pt denies any coughing. Patient has no major surgeries. Current medications are for thyroid, anxiety and asthma. - History of Current Complaint Chief Complaint: EDChestPainROMI Time Seen by Provider: 05/19/18 02:35 Hx Obtained From: Patient Onset/Duration: Started Weeks Ago, Still Present Timing: Constant Initial Severity: Moderate Current Severity: Moderate Pain Intensity: 6 Pain Scale Used: 0-10 Numeric Chest Pain Radiates: No Character: Other: - Congestion Aggravating Factor(s): Nothing Alleviating Factor(s): Nothing Associated Signs and Symptoms: Positive: Other: - Nasal congestion. Negative: Cough - Allergy/Home Medications Allergies/Adverse Reactions: Allergies Allergy/AdvReac Type Severity Reaction Status Date / Time albuterol [From Ventolin HFA] Allergy Difficulty Verified 01/30/18 12:52 Breathing bupropion Allergy Difficulty Verified 01/30/18 12:52 Breathing buspirone [From BuSpar] Allergy Dizziness Verified 01/30/18 12:52 cephalexin Allergy Rash Verified 01/30/18 12:52 citalopram [From Celexa] Allergy See Comment Verified 04/12/18 08:29 codeine Allergy Difficulty Verified 01/30/18 12:52 Breathing doxycycline Allergy Rash Verified 01/30/18 12:52 escitalopram [From Lexapro] Allergy See Comment Verified 01/30/18 12:52 famotidine Allergy Rash Verified 01/30/18 12:52 fluticasone Allergy Difficulty Verified 01/30/18 12:52 [From Advair Diskus] Breathing Iodinated Contrast- Oral and Allergy Itching Verified 01/30/18 12:52 IV Dye moxifloxacin Allergy Hives Verified 01/30/18 12:52 omeprazole [From Prilosec] Allergy Rash Verified 01/30/18 12:52 Penicillins Allergy Rash Verified 01/30/18 12:52 Quinolones Allergy Rash Verified 01/30/18 12:52 salmeterol Allergy Difficulty Verified 01/30/18 12:52 [From Advair Diskus] Breathing sertraline [From Zoloft] Allergy Hallucinati Verified 01/30/18 12:52 ons sulfamethoxazole Allergy Rash Verified 01/30/18 12:52 [From Bactrim] trimethoprim [From Bactrim] Allergy Rash Verified 01/30/18 12:52 PMH/Surg Hx/FS Hx/Imm Hx Endocrine/Hematology History: Reports: Hx Thyroid Disease Denies: Hx Anticoagulant Therapy, Hx Diabetes Cardiovascular History: Denies: Hx Congestive Heart Failure, Hx Deep Vein Thrombosis, Hx Hypertension , Hx Myocardial Infarction, Hx Pacemaker/ICD Respiratory History: Reports: Hx Asthma - ON MEDS, Hx Sleep Apnea - that was cured via surgery, Other Respiratory Problems/Disorders - pneumonia 2x Denies: Hx Chronic Obstructive Pulmonary Disease (COPD), Hx Lung Cancer, Hx Pneumonia, Hx Pulmonary Embolism GI History: Denies: Hx Gall Bladder Disease, Hx Gastrointestinal Bleed, Hx Ulcer, Hx Urosepsis History: Denies: Hx Kidney Stones, Hx Renal Disease Sensory History: Denies: Hx Contacts or Glasses, Hx Hearing Aid Opthamlomology History: Denies: Hx Contacts or Glasses Neurological History: Denies: Hx Dementia, Hx Migraine, Hx Seizures Psychiatric History: Reports: Hx Anxiety, Hx Panic Disorder - TO TAKE MEDICATION PRIOR TO MRI Denies: Hx Depression, Hx Schizophrenia, Hx Bipolar Disorder, Hx Substance Abuse - Surgical History Surgery Procedure, Year, and Place: RIGHT ELBOW RECONSTRUCTION SURGERY 1983,. SLEEP APNEA SURGERY 2010 - Tonsilectomy, uvula, stretching throat. CHOLECYSTECTOMY - 09/10/16. cicumcision with biopsy. R carpal tunnel 2018 - Immunization History Date of Tetanus Vaccine: unknown Date of Influenza Vaccine: 07/12/15 Infectious Disease History: No Infectious Disease History: Denies: Hx Clostridium Difficile, Hx Hepatitis, Hx Human Immunodeficiency Virus (HIV), Hx of Known/Suspected MRSA, Hx Shingles, Hx Tuberculosis, Hx Known/ Suspected VRE, Hx Known/Suspected VRSA, History Other Infectious Disease, Traveled Outside the [place] in Last 30 Days - Family History Known Family History: Positive: Cardiac Disease - two uncles in their 40s, no primary relatives, Hypertension, Diabetes, Other - TIA on paternal side, cancer on both sides, blood clots Family History: FHx of seasonal allergies - both parents. TIA on paternal side, cancer on both sides, blood clots - Social History Alcohol Use: None Hx Substance Use: Yes Substance Use Type: Reports: None Substance Use Comment - Amount & Last Used: benzo's in the past Hx Tobacco Use: No Smoking Status (MU): Former Smoker Type: Cigarettes Amount Used/How Often: 1/2 ppd Length of Time of Smoking/Using Tobacco: 15 yrs Have You Smoked in the Last Year: No Review of Systems Negative: Fever Positive: Other - POSITIVE: Nasal congestion Positive: Other - POSITIVE: Chest congestion Negative: Cough All Other Systems Reviewed And Are Negative: Yes Physical Exam - Summary Physical Exam Summary: VITAL SIGNS: Reviewed. GENERAL: Patient is a well-developed and nourished MALE who is lying comfortable in the stretcher. Patient is not in any acute respiratory distress. HEAD AND FACE: No signs of trauma. No ecchymosis, hematomas or skull depressions. No sinus tenderness. EYES: PERRLA, EOMI x 2, No injected conjunctiva, no nystagmus. EARS: Hearing grossly intact. Ear canals and tympanic membranes are within normal limits. MOUTH: Oropharynx within normal limits. NECK: Supple, trachea is midline, no adenopathy, no JVD, no carotid bruit, no c- spine tenderness, neck with full ROM. CHEST: Symmetric, no tenderness at palpation LUNGS: Clear to auscultation bilaterally. No wheezing or crackles. CVS: Regular rate and rhythm, S1 and S2 present, no murmurs or gallops appreciated. ABDOMEN: Soft, non-tender. No signs of distention. No rebound no guarding, and no masses palpated. Bowel sounds are normal. EXTREMITIES: FROM in all major joints, no edema, no cyanosis or clubbing. NEURO: Alert and oriented x 3. No acute neurological deficits. Speech is normal and follows commands. SKIN: Dry and warm Triage Information Reviewed: Yes Vital Signs On Initial Exam: Initial Vitals Temp Pulse Resp BP Pulse Ox 97.8 F 75 16 136/88 98 05/19/18 01:38 05/19/18 01:38 05/19/18 01:38 05/19/18 01:38 05/19/18 01:38 Vital Signs Reviewed: Yes Diagnostics - Vital Signs Vital Signs Temp Pulse Resp BP Pulse Ox 05/19/18 01:38 97.8 F 75 16 136/88 98 - Laboratory Lab Statement: Any lab studies that have been ordered have been reviewed, and results considered in the medical decision making process. Chest Pain Course/Dx - Course Course Of Treatment: A 37 y/o male presents to the ED c/o chest congestion. Additionally c/o nasal congestion. No laboratory scans were done. In the ED course, the patient recieved Motrin, Claritin, Zyrtec and Sudafed. Patient will be discharged with a diagnosis of viral URI. Pt is to follow up with PCP in 1-2 days. Pt is agreeable with this plan. - Diagnoses Provider Diagnoses: Viral URI Discharge - Sign-Out/Discharge Documenting (check all that apply): Patient Departure - DISCHARGE - Discharge Plan Condition: Stable Disposition: HOME Prescriptions: Cetirizine HCl/Pseudoephedrine [Zyrtec-D Tablet] 1 each PO BID #10 tab.er.12h Ibuprofen TAB* [Motrin TAB* 800 MG] 800 mg PO Q6H PRN #30 tab PRN Reason: Pain Patient Education Materials: Upper Respiratory Infection (ED) Referrals: Shad Uriostegui MD [Primary Care Provider] - 2 Days Additional Instructions: FOLLOW UP WITH PRIMARY CARE PHYSICIAN IN 1-2 DAYS. RETURN TO ED FOR ANY NEW OR WORSENING SYMPTOMS.
[2018-05-19 03:46] VITALS: BP 118/82
[2018-05-19] MEDS ORDERED: Cetirizine* 10 MG TAB PO ONE (04:00)
== END 2018-05-19 03:40 | disposition home or self-care (01) ==
LOC: ED 01:28
DX: J06.9 Acute upper respiratory infection, unspecified (principal); R09.89 Other specified symptoms and signs involving the circulatory and respiratory systems; Z87.891 Personal history of nicotine dependence
CPT/HCPCS: 99282; A9270-GY

== ENCOUNTER 2018-06-03 14:28 | Emergency (ER) | payer OTHER ==
[2018-06-03 15:30] VITALS: BP 143/89
--- NOTE | 2018-06-03 16:03 | UC ---
Throat Pain/Nasal Casimiro HPI - HPI Summary HPI Summary: This is scribe Cirilo Madden documenting for attending Lalo Head MD. This patient is a 37 year old M presenting to [facility] with a chief complaint of worsening chest cold since 2 weeks ago. The patient rates the pain 6/10 in severity. Patient reports chest congestion, sinus congestion, cough, sore throat , post nasal drip, rhinorrhea, and hoarse voice. Patient denies fever, colored nasal discharge, or wheezing. Pt also reports jaw pain because of a root canal earlier today. Pt tried to take allergy pills to alleviate his symptoms, but states it has gotten worse since he started them. Pt says he responds well to Z- paks. Pts dentist gave him an antibiotic but said to use the one from a doctor if they prescribe him one. PMHx asthma. No PMHx HTN. SHx former smoker. FHx asthma, HTN. Rx albuterol inhaler. I, Dr. Head, personally performed the services described in this documentation as scribed in my presence and it is both accurate and complete. - History of Current Complaint Chief Complaint: UCRespiratory Stated Complaint: CONGESTION COUGH Time Seen by Provider: 06/03/18 15:38 Hx Obtained From: Patient Onset/Duration: Gradual Onset, Lasting Weeks - 2 Severity: Moderate Pain Intensity: 6 Pain Scale Used: 0-10 Numeric Cough: Nonproductive Associated Signs & Symptoms: Positive: Hoarseness, Sinus Discomfort, Nasal Discharge. Negative: Wheezing - Allergies/Home Medications Allergies/Adverse Reactions: Allergies Allergy/AdvReac Type Severity Reaction Status Date / Time albuterol [From Ventolin HFA] Allergy Difficulty Verified 06/03/18 15:31 Breathing bupropion Allergy Difficulty Verified 06/03/18 15:31 Breathing buspirone [From BuSpar] Allergy Dizziness Verified 06/03/18 15:31 cephalexin Allergy Rash Verified 06/03/18 15:31 citalopram [From Celexa] Allergy See Comment Verified 06/03/18 15:31 codeine Allergy Difficulty Verified 06/03/18 15:31 Breathing doxycycline Allergy Rash Verified 06/03/18 15:31 escitalopram [From Lexapro] Allergy See Comment Verified 06/03/18 15:31 famotidine Allergy Rash Verified 06/03/18 15:31 fluticasone Allergy Difficulty Verified 06/03/18 15:31 [From Advair Diskus] Breathing Iodinated Contrast- Oral and Allergy Itching Verified 06/03/18 15:31 IV Dye moxifloxacin Allergy Hives Verified 06/03/18 15:31 omeprazole [From Prilosec] Allergy Rash Verified 06/03/18 15:31 Penicillins Allergy Rash Verified 06/03/18 15:31 Quinolones Allergy Rash Verified 06/03/18 15:31 salmeterol Allergy Difficulty Verified 06/03/18 15:31 [From Advair Diskus] Breathing sertraline [From Zoloft] Allergy Hallucinati Verified 06/03/18 15:31 ons sulfamethoxazole Allergy Rash Verified 06/03/18 15:31 [From Bactrim] trimethoprim [From Bactrim] Allergy Rash Verified 06/03/18 15:31 PMH/Surg Hx/FS Hx/Imm Hx Cardiovascular History: Other - none Other Cardiovascular History: . Respiratory History: Asthma Other History Of: Negative For: HIV, Hepatitis B, Hepatitis C, Anticoagulant Therapy - Surgical History Surgical History: Yes Surgery Procedure, Year, and Place: RIGHT ELBOW RECONSTRUCTION SURGERY 1983,. SLEEP APNEA SURGERY 2010 - Tonsilectomy, uvula, stretching throat. CHOLECYSTECTOMY - 09/10/16. carpal tunnel 2018. cicumcision with biopsy. R carpal tunnel 2018 - Family History Known Family History: Positive: Cardiac Disease - two uncles in their 40s, no primary relatives, Hypertension, Diabetes, Other - TIA on paternal side, cancer on both sides, blood clots, asthma Family History: FHx of seasonal allergies - both parents. TIA on paternal side, cancer on both sides, blood clots - Social History Alcohol Use: None Substance Use Type: None Substance Use Comment - Amount & Last Used: benzo's in the past Smoking Status (MU): Former Smoker Type: Cigarettes Amount Used/How Often: 1/2 ppd Length of Time of Smoking/Using Tobacco: 15 yrs Have You Smoked in the Last Year: No When Did the Patient Quit Smoking/Using Tobacco: 2016 Household Exposure Type: Cigarettes - Immunization History Most Recent Influenza Vaccination: fall 2015 Most Recent Tetanus Shot: utd Most Recent Pneumonia Vaccination: fall 2015 Review of Systems Constitutional: Negative ENT: Sore Throat, Nasal Discharge, Sinus Congestion, Other - hoarse voice Respiratory: Cough All Other Systems Reviewed And Are Negative: Yes Physical Exam - Summary Physical Exam Summary: General: well-appearing, no pain distress Skin: warm, color reflects adequate perfusion, dry Head: normal Eyes: EOMI, GABINO ENT: positive rhinorrhea, positive posterior pharynx erythema. Neck: supple, nontender Respiratory: CTA, breath sounds present. Lungs clear. Cardiovascular: RRR Abdomen: soft, nontender Bowel: present Musculoskeletal: normal, strength/ROM intact Neurological: sensory/motor intact, A&O x3 Psychological: affect/mood appropriate Triage Information Reviewed: Yes Vital Signs: Initial Vital Signs Temp 98.2 F 06/03/18 15:26 Pulse 82 06/03/18 15:26 Resp 18 06/03/18 15:26 BP 143/89 06/03/18 15:26 Pulse Ox 98 06/03/18 15:26 Vital Signs Reviewed: Yes Throat Pain/Nasal Course/Dx - Course Course Of Treatment: SX > 10 DAYS. PATIENT HAS HIS OWN ALBUTEROL RX. F/U PMD; RECHECK SOONER IF WORSE. - Differential Dx/Diagnosis Provider Diagnoses: SINUSITIS. BRONCHITIS Discharge - Sign-Out/Discharge Documenting (check all that apply): Patient Departure - Discharge Plan Condition: Stable Disposition: HOME Prescriptions: Azithromyxin EDMUND (NF) [Z-Edmund (Zithromax) 250 mg tabs #6] 2 tab PO .TODAY, THEN 1 DAILY #6 tab Patient Education Materials: Sinusitis (ED), Acute Bronchitis (ED) Referrals: Shad Uriostegui MD [Primary Care Provider] - Additional Instructions: FOLLOW UP WITH YOUR DOCTOR IF NOT COMPLETELY IMPROVED. GET RECHECKED FOR ANY WORSENING OF YOUR CONDITION OR QUESTIONS OR CONCERNS. - Billing Disposition and Condition Condition: STABLE Disposition: Home
== END 2018-06-03 16:12 | disposition home or self-care (01) ==
LOC: UCEAST 14:28
DX: J45.909 Unspecified asthma, uncomplicated (principal); Z88.8 Allergy status to other drugs, medicaments and biological substances; Z87.891 Personal history of nicotine dependence
CPT/HCPCS: 99212; G0463

== ENCOUNTER 2018-06-17 01:07 | Emergency (ER) | payer OTHER ==
[2018-06-17] MEDS ORDERED: Benzonatate CAP* 100 MG PO ONE (01:51)
--- NOTE | 2018-06-17 01:55 | ED ---
HPI Febrile Illness - HPI Summary HPI Summary: Pt is 37 y/o M who presents to ED c/o cough for a few days. Notes that hes been coughing all day today and it has gotten worse which prompted him to come to ED. Rates his pain intensity a 7/10 in severity. He visited walk-in clinic earlier this month for very similar symptoms and was given antibiotics. The antibiotics helped him feel a little bit better, but not a full recovery. Sometimes the cough is productive with phlegm, but not a large amount. Notes nasal congestion but states it could be from allergies. Denies SOB or fever. PMHx of bronchitis. Previously was a smoker. - History of Current Complaint Chief Complaint: EDUpperRespComplaint Time Seen by Provider: 06/17/18 01:30 Hx Obtained From: Patient Onset/Duration: Started Days Ago, Still Present Temperature: 36.9 C Current Severity: Moderate Pain Intensity: 7 Pain Scale Used: 0-10 Numeric Aggravating Factors: Nothing Alleviating Factors: Nothing Associated Signs and Symptoms: Cough, SOB - NEGATIVE, Other: - nasal congestion - Allergy/Home Medications Allergies/Adverse Reactions: Allergies Allergy/AdvReac Type Severity Reaction Status Date / Time albuterol [From Ventolin HFA] Allergy Difficulty Verified 06/03/18 15:31 Breathing bupropion Allergy Difficulty Verified 06/03/18 15:31 Breathing buspirone [From BuSpar] Allergy Dizziness Verified 06/03/18 15:31 cephalexin Allergy Rash Verified 06/03/18 15:31 citalopram [From Celexa] Allergy See Comment Verified 06/03/18 15:31 codeine Allergy Difficulty Verified 06/03/18 15:31 Breathing doxycycline Allergy Rash Verified 06/03/18 15:31 escitalopram [From Lexapro] Allergy See Comment Verified 06/03/18 15:31 famotidine Allergy Rash Verified 06/03/18 15:31 fluticasone Allergy Difficulty Verified 06/03/18 15:31 [From Advair Diskus] Breathing Iodinated Contrast- Oral and Allergy Itching Verified 06/03/18 15:31 IV Dye moxifloxacin Allergy Hives Verified 06/03/18 15:31 omeprazole [From Prilosec] Allergy Rash Verified 06/03/18 15:31 Penicillins Allergy Rash Verified 06/03/18 15:31 Quinolones Allergy Rash Verified 06/03/18 15:31 salmeterol Allergy Difficulty Verified 06/03/18 15:31 [From Advair Diskus] Breathing sertraline [From Zoloft] Allergy Hallucinati Verified 06/03/18 15:31 ons sulfamethoxazole Allergy Rash Verified 06/03/18 15:31 [From Bactrim] trimethoprim [From Bactrim] Allergy Rash Verified 06/03/18 15:31 PMH/Surg Hx/FS Hx/Imm Hx Endocrine/Hematology History: Reports: Hx Thyroid Disease Denies: Hx Anticoagulant Therapy, Hx Diabetes Cardiovascular History: Denies: Hx Congestive Heart Failure, Hx Deep Vein Thrombosis, Hx Hypertension , Hx Myocardial Infarction, Hx Pacemaker/ICD Respiratory History: Reports: Hx Asthma - ON MEDS, Hx Sleep Apnea - that was cured via surgery, Other Respiratory Problems/Disorders - pneumonia 2x Denies: Hx Chronic Obstructive Pulmonary Disease (COPD), Hx Lung Cancer, Hx Pneumonia, Hx Pulmonary Embolism GI History: Denies: Hx Gall Bladder Disease, Hx Gastrointestinal Bleed, Hx Ulcer, Hx Urosepsis History: Denies: Hx Kidney Stones, Hx Renal Disease Sensory History: Denies: Hx Contacts or Glasses, Hx Hearing Aid Opthamlomology History: Denies: Hx Contacts or Glasses Neurological History: Denies: Hx Dementia, Hx Migraine, Hx Seizures Psychiatric History: Reports: Hx Anxiety, Hx Panic Disorder - TO TAKE MEDICATION PRIOR TO MRI Denies: Hx Depression, Hx Schizophrenia, Hx Bipolar Disorder, Hx Substance Abuse - Surgical History Surgery Procedure, Year, and Place: RIGHT ELBOW RECONSTRUCTION SURGERY 1983,. SLEEP APNEA SURGERY 2010 - Tonsilectomy, uvula, stretching throat. CHOLECYSTECTOMY - 09/10/16. carpal tunnel 2018. cicumcision with biopsy. R carpal tunnel 2018 - Immunization History Date of Tetanus Vaccine: unknown Date of Influenza Vaccine: 07/12/15 Infectious Disease History: No Infectious Disease History: Denies: Hx Clostridium Difficile, Hx Hepatitis, Hx Human Immunodeficiency Virus (HIV), Hx of Known/Suspected MRSA, Hx Shingles, Hx Tuberculosis, Hx Known/ Suspected VRE, Hx Known/Suspected VRSA, History Other Infectious Disease, Traveled Outside the [place] in Last 30 Days - Family History Known Family History: Positive: Cardiac Disease - two uncles in their 40s, no primary relatives, Hypertension, Diabetes, Other - TIA on paternal side, cancer on both sides, blood clots, asthma Family History: FHx of seasonal allergies - both parents. TIA on paternal side, cancer on both sides, blood clots - Social History Alcohol Use: None Hx Substance Use: Yes Substance Use Type: Reports: None Substance Use Comment - Amount & Last Used: benzo's in the past Hx Tobacco Use: No Smoking Status (MU): Former Smoker Type: Cigarettes Amount Used/How Often: 1/2 ppd Length of Time of Smoking/Using Tobacco: 15 yrs Have You Smoked in the Last Year: No Review of Systems Negative: Fever Positive: Other - Nasal congestion Positive: Cough. Negative: Shortness Of Breath All Other Systems Reviewed And Are Negative: Yes Physical Exam - Summary Physical Exam Summary: Appearance: Well-appearing, Well-nourished, lying in bed comfortable Skin: Warm, dry, no obvious rash Eyes: sclera anicteric, no conjunctival pallor ENT: mucous membranes moist Neck: deferred Respiratory: No signs of respiratory distress Cardiovascular: Appears well perfused, pulses are nml Abdomen: deferred Musculoskeletal: Moving all 4 extremities without obvious discomfort Neurological: Awake and alert, mentation is normal, speech is fluent and appropriate Psychiatric: affect is normal, does not appear anxious or depressed Triage Information Reviewed: Yes Vital Signs On Initial Exam: Initial Vitals Temp Pulse Resp BP Pulse Ox 98.5 F 85 16 161/93 96 06/17/18 01:10 06/17/18 01:10 06/17/18 01:10 06/17/18 01:10 06/17/18 01:10 Vital Signs Reviewed: Yes Diagnostics - Vital Signs Vital Signs Temp Pulse Resp BP Pulse Ox 06/17/18 01:10 98.5 F 85 16 161/93 96 - Laboratory Lab Statement: Any lab studies that have been ordered have been reviewed, and results considered in the medical decision making process. Course/Dx - Course Course Of Treatment: This is a generally healthy middle-aged man with acute cough for a couple of days, consistent with acute bronchitis. There are no findings to suggest pneumonia, such as high fever, purulent sputum, chest pain, dyspnea, or other red flags. Accordingly, he will be treated for his cough, but I have deferred further antibiotic therapy. - Diagnoses Provider Diagnoses: Acute bronchitis Discharge - Sign-Out/Discharge Documenting (check all that apply): Patient Departure - Discharge Plan Condition: Good Disposition: HOME Prescriptions: Benzonatate CAP* [Tessalon 100 MG CAP*] 100 mg PO TID PRN #20 cap PRN Reason: Cough Patient Education Materials: Acute Bronchitis (ED) Referrals: Shad Uriostegui MD [Primary Care Provider] - - Billing Disposition and Condition Condition: GOOD Disposition: Home - Attestation Statements Document Initiated by Scribe: Yes Documenting Scribe: Jean-Claude Estrada Provider For Whom Aroldoibe is Documenting (Include Credential): Rashel So MD Scribe Attestation: Jean-Claude Weinberg, scribed for Rashel So MD on 06/17/18 at 0557. Scribe Documentation Reviewed: Yes Provider Attestation: The documentation as recorded by the Jean-Claude castillo accurately reflects the service I personally performed and the decisions made by me, Rashel So MD
[2018-06-17 02:06] VITALS: BP 133/94
== END 2018-06-17 02:05 | disposition home or self-care (01) ==
LOC: ED 01:07
DX: J20.9 Acute bronchitis, unspecified (principal); R09.81 Nasal congestion; J45.909 Unspecified asthma, uncomplicated; Z79.899 Other long term (current) drug therapy; Z87.09 Personal history of other diseases of the respiratory system; Z87.891 Personal history of nicotine dependence; Z82.49 Family history of ischemic heart disease and other diseases of the circulatory system; Z82.3 Family history of stroke; Z83.2 Family history of diseases of the blood and blood-forming organs and certain disorders involving the immune mechanism; Z88.3 Allergy status to other anti-infective agents; Z88.5 Allergy status to narcotic agent; Z88.0 Allergy status to penicillin; Z88.2 Allergy status to sulfonamides; Z91.041 Radiographic dye allergy status
CPT/HCPCS: 99282; A9270-GY

== ENCOUNTER 2018-07-28 02:29 | Emergency (ER) | payer OTHER ==
[2018-07-28] MEDS ORDERED: Meclizine TAB* 12.5 MG PO ONE (03:21)
--- NOTE | 2018-07-28 03:23 | ED ---
Dizziness - HPI Summary HPI Summary: This patient is a 37 year old M presenting to [facility] with a chief complaint of dizziness since 0000. He endorses intermittent CP and lightheadedness. Pt denies N/V, and SOB. He notes his dizziness is aggravated by head movements and change in position. Pt endorses a stress test last year, unsure about cardiac catheterization. He denies any recent URIs or ear infections. - History Of Current Complaint Chief Complaint: EDChestPainROMI Stated Complaint: CHEST PAIN/DIZZINESS Time Seen by Provider: 07/28/18 02:39 Hx Obtained From: Patient Onset/Duration: Suddenly Timing: Constant Severity Initially: Moderate Severity Currently: Mild Character: Lightheaded, Dizzy Aggravating Factor(s): Position Change, Change In Head Position Alleviating Factor(s): Nothing Associated Signs And Symptoms: Positive: Chest Pain. Negative: Nausea, Vomiting , SOB, Fever - Allergies/Home Medications Allergies/Adverse Reactions: Allergies Allergy/AdvReac Type Severity Reaction Status Date / Time albuterol [From Ventolin HFA] Allergy Difficulty Verified 07/28/18 02:51 Breathing bupropion Allergy Difficulty Verified 07/28/18 02:51 Breathing buspirone [From BuSpar] Allergy Dizziness Verified 07/28/18 02:51 cephalexin Allergy Rash Verified 07/28/18 02:51 citalopram [From Celexa] Allergy See Comment Verified 07/28/18 02:51 codeine Allergy Difficulty Verified 07/28/18 02:51 Breathing doxycycline Allergy Rash Verified 07/28/18 02:51 escitalopram [From Lexapro] Allergy See Comment Verified 07/28/18 02:51 famotidine Allergy Rash Verified 07/28/18 02:51 fluticasone Allergy Difficulty Verified 07/28/18 02:51 [From Advair Diskus] Breathing Iodinated Contrast- Oral and Allergy Itching Verified 07/28/18 02:51 IV Dye moxifloxacin Allergy Hives Verified 07/28/18 02:51 omeprazole [From Prilosec] Allergy Rash Verified 07/28/18 02:51 Penicillins Allergy Rash Verified 07/28/18 02:51 Quinolones Allergy Rash Verified 07/28/18 02:51 salmeterol Allergy Difficulty Verified 07/28/18 02:51 [From Advair Diskus] Breathing sertraline [From Zoloft] Allergy Hallucinati Verified 07/28/18 02:51 ons sulfamethoxazole Allergy Rash Verified 07/28/18 02:51 [From Bactrim] trimethoprim [From Bactrim] Allergy Rash Verified 07/28/18 02:51 PMH/Surg Hx/FS Hx/Imm Hx Endocrine/Hematology History: Reports: Hx Thyroid Disease Denies: Hx Anticoagulant Therapy, Hx Diabetes Cardiovascular History: Denies: Hx Congestive Heart Failure, Hx Deep Vein Thrombosis, Hx Hypertension , Hx Myocardial Infarction, Hx Pacemaker/ICD Respiratory History: Reports: Hx Asthma - ON MEDS, Hx Sleep Apnea - that was cured via surgery, Other Respiratory Problems/Disorders - pneumonia 2x Denies: Hx Chronic Obstructive Pulmonary Disease (COPD), Hx Lung Cancer, Hx Pneumonia, Hx Pulmonary Embolism GI History: Denies: Hx Gall Bladder Disease, Hx Gastrointestinal Bleed, Hx Ulcer, Hx Urosepsis History: Denies: Hx Kidney Stones, Hx Renal Disease Sensory History: Denies: Hx Contacts or Glasses, Hx Hearing Aid Opthamlomology History: Denies: Hx Contacts or Glasses Neurological History: Denies: Hx Dementia, Hx Migraine, Hx Seizures Psychiatric History: Reports: Hx Anxiety, Hx Panic Disorder - TO TAKE MEDICATION PRIOR TO MRI Denies: Hx Depression, Hx Schizophrenia, Hx Bipolar Disorder, Hx Substance Abuse - Surgical History Surgery Procedure, Year, and Place: RIGHT ELBOW RECONSTRUCTION SURGERY 1983,. SLEEP APNEA SURGERY 2010 - Tonsilectomy, uvula, stretching throat. CHOLECYSTECTOMY - 09/10/16. carpal tunnel 2018. cicumcision with biopsy. R carpal tunnel 2018 - Immunization History Date of Tetanus Vaccine: unknown Date of Influenza Vaccine: 07/12/15 Infectious Disease History: No Infectious Disease History: Denies: Hx Clostridium Difficile, Hx Hepatitis, Hx Human Immunodeficiency Virus (HIV), Hx of Known/Suspected MRSA, Hx Shingles, Hx Tuberculosis, Hx Known/ Suspected VRE, Hx Known/Suspected VRSA, History Other Infectious Disease, Traveled Outside the [place] in Last 30 Days - Family History Known Family History: Positive: Cardiac Disease - two uncles in their 40s, no primary relatives, Hypertension, Diabetes, Other - TIA on paternal side, cancer on both sides, blood clots, asthma Family History: FHx of seasonal allergies - both parents. TIA on paternal side, cancer on both sides, blood clots - Social History Alcohol Use: None Hx Substance Use: No Substance Use Type: Reports: None Substance Use Comment - Amount & Last Used: benzo's in the past Hx Tobacco Use: Yes Smoking Status (MU): Former Smoker Type: Cigarettes Amount Used/How Often: 1/2 ppd Length of Time of Smoking/Using Tobacco: 15 yrs Have You Smoked in the Last Year: No Review of Systems Negative: Fever Positive: Chest Pain Negative: Shortness Of Breath Negative: Vomiting, Nausea Positive: no symptoms reported Neurological: Other - Lightheaded, dizzy All Other Systems Reviewed And Are Negative: Yes Physical Exam - Summary Physical Exam Summary: Appearance: Well appearing, no pain distress Skin: warm, dry, reflects adequate perfusion Head/face: normal Eyes: EOMI, GABINO ENT: normal Neck: supple, non-tender Respiratory: CTA, breath sounds present Cardiovascular: RRR, pulses symmetrical Abdomen: non-tender, soft Bowel: present Musculoskeletal: normal, strength/ROM intact Neuro: dizziness with head movement, sensory motor intact, A&Ox3 Triage Information Reviewed: Yes Vital Signs On Initial Exam: Initial Vitals Temp Pulse Resp BP Pulse Ox 98.2 F 75 15 149/95 98 07/28/18 02:31 07/28/18 02:31 07/28/18 02:31 07/28/18 02:31 07/28/18 02:31 Vital Signs Reviewed: Yes - Hamilton Coma Scale Best Eye Response: 4 - Spontaneous Best Motor Response: 6 - Obeys Commands Best Verbal Response: 5 - Oriented Coma Scale Total: 15 Diagnostics - Vital Signs Vital Signs Temp Pulse Resp BP Pulse Ox 07/28/18 02:31 98.2 F 75 15 149/95 98 - Laboratory Result Diagrams: 07/28/18 03:24 07/28/18 03:24 Lab Statement: Any lab studies that have been ordered have been reviewed, and results considered in the medical decision making process. - Radiology CXR Xray Interpretation: No Acute Changes Radiology Interpretation Completed By: ED Physician - Negative. Pending official imaging report. - CT Brain CT Interpretation: No Acute Changes CT Interpretation Completed By: Radiologist - No acute abnormality. If symptoms persist a short interval MRI can be obtained if there are no contraindications for MRI. Dr. Herndon has reviewed this report. - EKG 0236 Cardiac Rate: NL - 0236 EKG Rhythm: Sinus Rhythm ST Segment: Normal Ectopy: None EKG Interpretation: No acute changes. Dizzy Course/Dx - Course Course Of Treatment: A 37-year-old M presents to the ED with a CC of dizziness since 0000. (+) CP, lightheadedness. (-) N/V, SOB. Sx worsened with head movement and position change. A CXR was (-). A CT brain was (-). An EKG reveals NSR at 73 BPM with no acute changes. In the ED course, pt was given meclizine. Labs obtained and reviewed. pt feels better at present so will dc home on meclizine, - Diagnoses Differential Diagnosis/HQI/PQRI: Benign Paroxysmal Positional Vertigo, Labyrinthitis, Vasovagal Reaction Provider Diagnoses: Vertigo, Atypical chest pain Discharge - Sign-Out/Discharge Documenting (check all that apply): Patient Departure - discharge - Discharge Plan Condition: Stable Disposition: HOME Prescriptions: Meclizine TAB* [Antivert 12.5 TAB*] 25 mg PO TID PRN #15 tab MDD 3 PRN Reason: Dizziness Patient Education Materials: Chest Pain (ED), Vertigo (ED) Referrals: Shad Uriostegui MD [Primary Care Provider] - 3 Days Additional Instructions: Return to the emergency department for any new or worsening symptoms. - Billing Disposition and Condition Condition: STABLE Disposition: Home - Attestation Statements Document Initiated by Jean: Yes Documenting Scribe: Ras Huynh Provider For Whom Jean is Documenting (Include Credential): Dr. Simba Herndon MD Scribe Attestation: Ras Weinberg scribed for Dr. Simba Herndon MD on 07/28/18 at 0532. Scribe Documentation Reviewed: Yes Provider Attestation: The documentation as recorded by the Ras castillo accurately reflects the service I personally performed and the decisions made by me, Dr. Simba Herndon MD
[2018-07-28 03:36] LABS: ABS Basophils 0.1 10^3/ul (0-0.2); ABS Eosinophils 0.4 10^3/ul (0-0.6); ABS Lymphocytes 3.6 10^3/ul (1.0-4.8); ABS Monocytes 0.9 10^3/ul (0-0.8); ABS Neutrophils 4.9 10^3/ul (1.5-7.7); ABS Nucleated RBC 0 10^3/ul; Eosinophil % 4.1 % (0-6); Hematocrit 45 % (42-52); Hemoglobin 14.8 g/dl (14.0-18.0); Lymphocyte % 35.8 % (25-47); Mean Corpuscular HGB Conc 33 g/dl (31-36); Mean Corpuscular Hemoglobin 29 pg (27-31); Mean Corpuscular Volume 87 fL (80-94); Mean Platelet Volume 8.2 um3 (7.4-10.4); Nucleated Red Blood Cells % 0.1; Platelet Count 235 10^3/ul (150-450); Red Blood Count 5.11 10^6/ul (4.00-5.40); Red Cell Distribution Width 14 % (10.5-15); White Blood Count 9.9 10^3/ul (3.5-10.8)
[2018-07-28 03:43] LABS: INR 0.91 (0.77-1.02)
[2018-07-28 03:52] LABS: EGFR Non-African American 129.8 (>60)
--- NOTE | 2018-07-28 04:07 | RAD ---
EXAM: CT Head Without Intravenous Contrast CLINICAL HISTORY: 37 years old, male; Signs and symptoms; Dizziness; Additional info: Dizzy TECHNIQUE: Axial computed tomography images of the head/brain without intravenous contrast. All CT scans at this facility use at least one of these dose optimization techniques: automated exposure control; mA and/or kV adjustment per patient size (includes targeted exams where dose is matched to clinical indication); or iterative reconstruction. COMPARISON: No relevant prior studies available. FINDINGS: Brain: Unremarkable. No hemorrhage. No significant white matter disease. No edema. Ventricles: Unremarkable. No ventriculomegaly. Bones/joints: Unremarkable. No acute fracture. Soft tissues: Unremarkable. Sinuses: Unremarkable as visualized. No acute sinusitis. Mastoid air cells: Unremarkable as visualized. No mastoid effusion. IMPRESSION: No acute abnormality. If symptoms persist a short interval MRI can be obtained if there are no contraindications for MRI.
[2018-07-28 04:29] LABS: Urine Appearance Clear; Urine Blood Negative (Negative); Urine Color Straw; Urine Ketones Negative (Negative); Urine Protein Negative (Negative); Urine Specific Gravity 1.003 (1.010-1.030); Urine Urobilinogen Negative (Negative)
[2018-07-28 05:31] VITALS: BP 137/96
--- NOTE | 2018-07-28 08:33 | RAD ---
HISTORY: cp COMPARISONS: January 30, 2018 VIEWS: 1: frontal AP view of the chest at 3:57 AM FINDINGS: LINES AND TUBES: None. CARDIOMEDIASTINAL SILHOUETTE: The cardiomediastinal silhouette is normal for portable technique. PLEURA: The costophrenic angles are sharp. No pleural abnormalities are noted. LUNG PARENCHYMA: The lungs are clear. ABDOMEN: The upper abdomen is clear. There is no subphrenic gas. BONES AND SOFT TISSUES: No bone or soft tissue abnormalities are noted. IMPRESSION: NO ACTIVE CARDIOPULMONARY DISEASE. R0
== END 2018-07-28 05:36 | disposition home or self-care (01) ==
LOC: ED 02:29
DX: R42 Dizziness and giddiness (principal); R07.89 Other chest pain; J45.909 Unspecified asthma, uncomplicated; F41.0 Panic disorder [episodic paroxysmal anxiety]; Z88.5 Allergy status to narcotic agent; Z88.0 Allergy status to penicillin; Z88.2 Allergy status to sulfonamides; Z88.8 Allergy status to other drugs, medicaments and biological substances; Z88.1 Allergy status to other antibiotic agents; Z91.041 Radiographic dye allergy status; Z87.891 Personal history of nicotine dependence
CPT/HCPCS: 36415; 70450; 71045; 80053; 81003; 83690; 84484; 85025; 85610; 85730; 93005; 99283; A9270-GY

== ENCOUNTER 2018-09-26 22:23 | Emergency (ER) | payer OTHER ==
--- OUTSIDE RECORDS SUMMARY | 2018-09-26 22:34 | XMS REPORT | Continuity of Care Document ---
:1980 External Reference #:[id number] Author Name Baron Collado M.D. Address [address] [address] Care Team Providers Name Role Phone Love Naqvi Care Team Information Video Games Storywriter Unavailable Gila DRAKE, Shad Primary Care Physician Unavailable Payers Type Date Identification Numbers Payment Provider Subscriber Expires: 2016 Policy Number: [id number] [facility] Amanda Segovia PayID: [id number] [address] [address] [place] [address] Policy Number: [id number] [facility] Amanda Segovia Group Number: [id number] [address] PayID: [id number] [place] [address] Advance Directives Description No Information Available Problems Date Description Provider Status Onset: 07/26/2011 Obstructive sleep apnea syndrome Baron Collado M.D. Active Onset: 07/26/2011 Hypertrophy of tonsils Baron Collado M.D. Active Onset: 07/26/2011 Hypertrophy of nasal turbinates Baron Collado M.D. Active Onset: 07/26/2011 Disorder of nasal cavity Baron Collado M.D. Active Onset: 07/26/2011 Disorder of nasal cavity Baron Collado M.D. Active Onset: 07/26/2011 Morbid obesity Baron Collado M.D. Active Onset: 08/07/2011 Allergic rhinitis Baron Collado M.D. Active Family History Date Family Member(s) Problem(s) Comments General Allergies General Asthma General Cancer General Diabetes General Heart Attack General Thyroid Disease Social History Type Date Description Comments Sex Unknown Occupation [employer] Ghulam Santana Tobacco Use Start: Unknown End: Former Cigarette Smoker Packs for 5 years Unknown Daily 2 Tobacco Use Start: Unknown quit at age 25 Tobacco Use Start: Unknown Never Smoked Cigars Tobacco Use Start: Unknown Never Smoked A Pipe Smoking Status Reviewed: 09/02/18 Never Smoked A Pipe Smokeless Tobacco Never Used Smokeless Tobacco ETOH Use Denies alcohol use Tobacco Use Start: Unknown End: Patient is a former smoker Unknown Allergies, Adverse Reactions, Alerts Date Description Reaction Status Severity Comments 01/30/2011 Penicillin rash Active 01/30/2011 Codeine breathing Active 01/30/2011 Keflex rash Active 01/30/2011 Advair HFA breathing and rash Active 01/30/2011 Prilosec Active 01/30/2011 Pepcid Active 01/30/2011 Buspar Active 01/30/2011 Xonox Active 01/30/2011 Lexapro Active 01/30/2011 Doxycycline Active 01/30/2011 Quinolones Active 07/28/2018 Albuteral breathing problems Active 07/28/2018 Sulfamethoxazole/Trimethopri rash Active m 07/28/2018 Dye Urticaria Active 07/28/2018 Moxifloxacin rash Active 07/28/2018 Morphine respitory reaction Active 07/28/2018 Bupropion respitory reaction Active 07/28/2018 Pantoprazole rash Active 01/30/2011 Ibuprofen Inactive Medications Medication Date Status Form Strength Qnty SIG Indications Ordering Provider Neurontin / Active Capsules 300mg 100ca 1 tab qhs Unknown 0000 ps for 3 days, then 1 tab bid for 3 days, then 1 tab tid Neurontin / Active Capsules 100mg Unknown 0000 Levothyroxine / Active Unknown Sodium 0000 Clonazepam / Active Unknown 0000 Proair HFA / Active Aerosol 108(90Bas 2unit use as Unknown 0000 e) mcg/ac s directed Nasonex / Active Suspension 50mcg/Act 17GMS 2 sprays Baron N. 0000 intranasal Strominge daily r, M.D. Tums / Active Unknown 0000 Clindamycin HCL 07/28/ Hx Capsules 300mg 56cap Take 1 J32.4 Baron NNatalie 2018 - s capsule by Strominge 09/02/ mouth every r, M.D. 2018 6 hours for 14 days for infection Immunizations Description No Information Available Vital Signs Date Vital Result Comment 07/28/2018 11:31am Weight 260.00 lb Weight 117.936 kg Height 70 inches 5'10" Height in cm's 177.8 cm BMI (Body Mass Index) 37.3 kg/m2 08/07/2011 3:37pm BP Systolic 118 mmHg BP Diastolic 77 mmHg Heart Rate 64 /min Respiratory Rate 16 /min Weight 193.00 lb Weight 87.545 kg Height 70 inches 5'10" Height in cm's 177.8 cm BMI (Body Mass Index) 27.7 kg/m2 03/07/2011 3:42pm BP Systolic 128 mmHg BP Diastolic 88 mmHg Heart Rate 76 /min Respiratory Rate 16 /min 02/13/2011 3:17pm Weight 253.00 lb Weight 114.761 kg Height 70 inches 5'10" Height in cm's 177.8 cm BMI (Body Mass Index) 36.3 kg/m2 02/13/2011 3:01pm BP Systolic 136 mmHg BP Diastolic 85 mmHg Heart Rate 69 /min Respiratory Rate 16 /min Results Test Date Facility Test Result H/L Range Note Surgical 03/21/2011 [facility] Surgical 1 Pathology c/o Department of Laboratories Pathology ----- <[place] [address] NOTE> [phone] MRSA/Vre Screen 03/21/2011 [facility] MRSA/Vre NFICU 2 c/o Department [place] [address] [phone] CBC No Diff 03/14/2011 [facility] White Blood 9.6 CUMM 4.8-10.8 c/o Department of Laboratories Count [place], [place] [id number] [phone] Red Cell Count 5.52 CUMM 4.6-6.2 Hemoglobin 15.5 g/dL 14.0-18.0 Hematocrit 47 % 42-52 Mean Corpuscular Volume 86 um3 80-94 Mean Corpuscular Hemoglob 28 pg 27-31 Mean Corpuscular HGB [facility] 33 g/dL 32-36 Redcell Distribution WDTH 14 % 10.5-15 Platelet Count 231 CUMM 150-450 Mean Platelet Volume 9.4 um3 7.4-10.4 Basic Metabolic 03/14/2011 [facility] Sodium 138 mmol/ L 135-145 Panel c/o Department [place] [address] [phone] Potassium 4.0 mmol/L 3.5-5.0 Chloride 104 mmol/L 101-111 Co2 (Carbon Dioxide) 27.0 mmol/L 22-32 Anion Gap 7.0 mmol/L 2-11 3 Glucose 102 mg/dL High 70-100 BUN 9 mg/dL 6-24 Creatinine 0.80 mg/dL 0.50-1.40 One Over Creatinine 1.20 BUN/Creatinine Ratio 11.3 8-20 Calcium 9.9 mg/dL 8.1-9.9 eGFR Non- 112.0 > 60 eGFR 144.1 > 60 4 1 --- RUN DATE: 03/22/11 [facility] NMI LIVE PAGE 1 RUN TIME: 1429 Specimen Inquiry RUN USER: INTERFACE -- Name: AMANDA SEGOVIA Status: DIS IN Re03/21/11 Age/Sex: 30/M Unit#: [id number] Location: ICU : 78 -- Specimen: [id number] Spec Date: 03/21/[address]: Baron soto MD Spec Type: SURGICAL P Received: 03/21/11-1258 Copies to: SPECIMEN 1) RIGHT TONSIL 2) LEFT TONSIL 3) TIP OF UVULA HISTORY PRE-OP DIAGNOSIS: Sleep apnea. GROSS DESCRIPTION 1) The specimen is received in formalin labelled Amanda Segovia, Right Tonsil, and consists of a tonsil measuring 4.0 x 1.5 x 1.5 cm. Cut section demonstrates moss-pink, lobulated parenchyma. Frame Repairer section, one cassette. 2) The specimen is received in formalin labelled Amanda Segovia, Left Tonsil, and consists of a tonsil measuring 3.0 x 2.0 x 1.2 cm. Cut section demonstrates lobulated moss fleshy parenchyma. Frame Repairer section, one cassette. 3) The specimen is received in formalin labelled Amanda Segovia, Uvula Tip, and consists of a uvula tip measuring 0.7 x 0.6 x 0.5 cm. Submitted entirely, one cassette. DIAGNOSIS 1) Oropharynx, right tonsil, tonsillectomy: Tonsillar tissue with follicular lymphoid hyperplasia. 2) Oropharynx, left tonsil, tonsillectomy: Tonsillar tissue with follicular lymphoid hyperplasia. 3) Tip of uvula, resection: Segment of uvula. Signed Electronically by: AHSAN FAM MD 03/22/11 1429 -- -- DEPARTMENT OF PATHOLOGY, [address] [place] [address] [facility] Permit #[id number] Ahsan Fam M.D. Director Consuelo Herrera M.D. Occupational Therapy Specialist Dir elmo -- 2 NO MRSA ISOLATED 3 Anion gap measurement may be of limited value in the presence of any alkalosis, especially in a combined acid base disorder. . 4 Because ethnic data is not always readily [...] 15-29 5 Kidney failure <15 (or dialysis) Procedures Date Code Description Status 09/02/2018 32542 Bronchospasm Evaluation Completed 03/21/2011 79578 Tonsillectomy Age 12 And Over Completed 03/21/2011 25754 Uvulopalatopharyngoplasty Completed 03/21/2011 53427 Cautery Of Turbinates/Intramural Completed Encounters Type Date Location Provider Dx Diagnosis Office Visit 09/02/2018 [place] Baron Santana.20 Mild intermittent 2:15p 10/28/07 Kirsten Collado asthma, uncomplicated J32.4 Chronic pansinusitis Office Visit 07/28/2018 [place] Baron Acosta J32.4 Chronic 11:15a 10/28/07 Kirsten Collado pansinusitis J45.20 Mild intermittent asthma, uncomplicated G47.33 Obstructive sleep apnea (adult) (pediatric) Office Visit 08/07/2011 [place] Baron Acosta 327.23 Obstructive 3:30p 10/28/07 Kirsten Collado Sleep Apnea Adult Pediatric 477.9 Rhinitis, Allergic Office Visit 03/07/2011 [place] Baron Acosta 327.23 Obstructive 3:45p 10/28/07 Kirsten Collado Sleep Apnea Adult Pediatric 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 478.1-4 Obstruction Of Nasal Airway 474.11 Hypertrophy, Tonsils 478.0 Hypertrophy, Nasal Turbinates Office Visit 02/13/2011 [place] Baron Acosta 327.23 Obstructive 3:00p 10/28/07 Kirsten Collado Sleep Apnea Adult Pediatric 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 He uses his Proair up to once per week. He had a PFT at [facility] in March thatlooks really good. Today on his PFT there is no evidence of reversible obstruction. I think it is okfor him to continue as he is.J32.4 Chronic pansinusitisComments: He responded to the Clindamycin and is doing well.
--- NOTE | 2018-09-27 00:31 | ED ---
Respiratory - HPI Summary HPI Summary: 37-year-old male presents with cough for the past 3 days. He admits to some chest tightness. He has a history of asthma. He is nonsmoker currently. He states his cough is productive. Denies any fevers. He denies any sinus congestion or sore throat. He denies any bowel pain nausea or vomiting. He states he can only take pro-air as he is allergic to everything else. He has been taking his inhaler with minimal relief. - History of Current Complaint Chief Complaint: EDGeneral Stated Complaint: CONGESTION/DIFF BREATHING Time Seen by Provider: 09/27/18 00:15 Pain Intensity: 0 - Allergy/Home Medications Allergies/Adverse Reactions: Allergies Allergy/AdvReac Type Severity Reaction Status Date / Time albuterol [From Ventolin HFA] Allergy Difficulty Verified 07/28/18 02:51 Breathing bupropion Allergy Difficulty Verified 07/28/18 02:51 Breathing buspirone [From BuSpar] Allergy Dizziness Verified 07/28/18 02:51 cephalexin Allergy Rash Verified 07/28/18 02:51 citalopram [From Celexa] Allergy See Comment Verified 07/28/18 02:51 codeine Allergy Difficulty Verified 07/28/18 02:51 Breathing doxycycline Allergy Rash Verified 07/28/18 02:51 escitalopram [From Lexapro] Allergy See Comment Verified 07/28/18 02:51 famotidine Allergy Rash Verified 07/28/18 02:51 fluticasone Allergy Difficulty Verified 07/28/18 02:51 [From Advair Diskus] Breathing Iodinated Contrast- Oral and Allergy Itching Verified 07/28/18 02:51 IV Dye moxifloxacin Allergy Hives Verified 07/28/18 02:51 omeprazole [From Prilosec] Allergy Rash Verified 07/28/18 02:51 Penicillins Allergy Rash Verified 07/28/18 02:51 Quinolones Allergy Rash Verified 07/28/18 02:51 salmeterol Allergy Difficulty Verified 07/28/18 02:51 [From Advair Diskus] Breathing sertraline [From Zoloft] Allergy Hallucinati Verified 07/28/18 02:51 ons sulfamethoxazole Allergy Rash Verified 07/28/18 02:51 [From Bactrim] trimethoprim [From Bactrim] Allergy Rash Verified 10/01/18 02:51 PMH/Surg Hx/FS Hx/Imm Hx Endocrine/Hematology History: Reports: Hx Thyroid Disease Denies: Hx Anticoagulant Therapy, Hx Diabetes Cardiovascular History: Denies: Hx Congestive Heart Failure, Hx Deep Vein Thrombosis, Hx Hypertension , Hx Myocardial Infarction, Hx Pacemaker/ICD Respiratory History: Reports: Hx Asthma - ON MEDS, Hx Sleep Apnea - that was cured via surgery, Other Respiratory Problems/Disorders - pneumonia 2x Denies: Hx Chronic Obstructive Pulmonary Disease (COPD), Hx Lung Cancer, Hx Pneumonia, Hx Pulmonary Embolism GI History: Denies: Hx Gall Bladder Disease, Hx Gastrointestinal Bleed, Hx Ulcer, Hx Urosepsis History: Denies: Hx Kidney Stones, Hx Renal Disease Sensory History: Denies: Hx Contacts or Glasses, Hx Hearing Aid Opthamlomology History: Denies: Hx Contacts or Glasses Neurological History: Denies: Hx Dementia, Hx Migraine, Hx Seizures Psychiatric History: Reports: Hx Anxiety, Hx Panic Disorder - TO TAKE MEDICATION PRIOR TO MRI Denies: Hx Depression, Hx Schizophrenia, Hx Bipolar Disorder, Hx Substance Abuse - Surgical History Surgery Procedure, Year, and Place: RIGHT ELBOW RECONSTRUCTION SURGERY 1983,. SLEEP APNEA SURGERY 2010 - Tonsilectomy, uvula, stretching throat. CHOLECYSTECTOMY - 09/10/16. carpal tunnel 2018. cicumcision with biopsy. R carpal tunnel 2018 - Immunization History Date of Tetanus Vaccine: unknown Date of Influenza Vaccine: 07/12/15 Infectious Disease History: No Infectious Disease History: Denies: Hx Clostridium Difficile, Hx Hepatitis, Hx Human Immunodeficiency Virus (HIV), Hx of Known/Suspected MRSA, Hx Shingles, Hx Tuberculosis, Hx Known/ Suspected VRE, Hx Known/Suspected VRSA, History Other Infectious Disease, Traveled Outside the [place] in Last 30 Days - Family History Known Family History: Positive: Cardiac Disease - two uncles in their 40s, no primary relatives, Hypertension, Diabetes, Other - TIA on paternal side, cancer on both sides, blood clots, asthma Family History: FHx of seasonal allergies - both parents. TIA on paternal side, cancer on both sides, blood clots - Social History Alcohol Use: None Hx Substance Use: No Substance Use Type: Reports: None Substance Use Comment - Amount & Last Used: benzo's in the past Hx Tobacco Use: Yes Smoking Status (MU): Former Smoker Type: Cigarettes Amount Used/How Often: 1/2 ppd Length of Time of Smoking/Using Tobacco: 15 yrs Have You Smoked in the Last Year: No Review of Systems Negative: Fever Negative: Chest Pain Positive: Shortness Of Breath, Cough Negative: Abdominal Pain All Other Systems Reviewed And Are Negative: Yes Physical Exam Triage Information Reviewed: Yes Vital Signs On Initial Exam: Initial Vitals Temp Pulse Resp BP Pulse Ox 98.9 F 82 18 155/104 96 09/26/18 22:25 09/26/18 22:25 09/26/18 22:25 09/26/18 22:25 09/26/18 22:25 Vital Signs Reviewed: Yes Appearance: Positive: Well-Appearing Skin: Positive: Warm, Dry Head/Face: Positive: Normal Head/Face Inspection Eyes: Positive: Normal, Conjunctiva Clear ENT: Positive: Normal ENT inspection, Pharynx normal, TMs normal Neck: Positive: Supple, Nontender, No Lymphadenopathy Respiratory/Lung Sounds: Positive: Clear to Auscultation, Breath Sounds Present , Wheezes - mild Cardiovascular: Positive: Normal, RRR Abdomen Description: Positive: Nontender, Soft Bowel Sounds: Positive: Present Musculoskeletal: Positive: Normal Neurological: Positive: Normal Psychiatric: Positive: Normal Diagnostics - Vital Signs Vital Signs Temp Pulse Resp BP Pulse Ox 09/26/18 22:25 98.9 F 82 18 155/104 96 - Laboratory Lab Statement: Any lab studies that have been ordered have been reviewed, and results considered in the medical decision making process. - Radiology chest Radiology Interpretation Completed By: ED Physician Summary of Radiographic Findings: possible pneumonia RLL Disposition - Course Course Of Treatment: 37-year-old male presents with cough for the past 3 days. He admits to some chest tightness. He has a history of asthma. He is nonsmoker currently. He states his cough is productive. Denies any fevers. He denies any sinus congestion or sore throat. He denies any bowel pain nausea or vomiting. He states he can only take pro-air as he is allergic to everything else. He has been taking his inhaler with minimal relief. On exam has mild wheezing noted. Chest x-ray shows possible right lower pneumonia as read by me. Discussed will place on the Z-Shant. will give low-dose of prednisone as it makes his anxiety worse. Told to follow up primary. Patient understands agrees plan. - Differential Dx - Cardiopulmonary Differential Diagnoses - Cardiopulmonary: Asthma, Bronchitis, Lower Resp Infection - Diagnoses Provider Diagnoses: Bronchitis, Asthma Discharge - Sign-Out/Discharge Documenting (check all that apply): Patient Departure - Discharge Plan Condition: Good Disposition: HOME Prescriptions: Azithromycin TAB* [Zithromax TAB (Z-SHANT) 250 mg #6 tabs] 250 mg PO DAILY #4 tab predniSONE TAB* [Deltasone 20 MG TAB*] 20 mg PO DAILY #5 tab Patient Education Materials: Acute Bronchitis (ED) Forms: *Work Release Referrals: Shad Uriostegui MD [Primary Care Provider] - Additional Instructions: Use inhaler up to two puffs every 4 hours for cough and wheezing Take steroid once a day for 5 days Take antibiotic once daily starting tomorrow for 4 days Take Tylenol or ibuprofen for pain every 6 hours Return to ED if develop severe shortness of breath, worsening chest pain, or any new or worsening symptoms - Billing Disposition and Condition Condition: GOOD Disposition: Home
[2018-09-27] MEDS ORDERED: Azithromycin TAB* 250 MG PO ONE (00:34)
[2018-09-27 00:55] VITALS: BP 150/79
== END 2018-09-27 00:54 | disposition home or self-care (01) ==
LOC: ED 22:23
DX: J40 Bronchitis, not specified as acute or chronic (principal); J45.909 Unspecified asthma, uncomplicated; R06.02 Shortness of breath; R05 Cough; Z87.891 Personal history of nicotine dependence; Z88.0 Allergy status to penicillin; Z88.6 Allergy status to analgesic agent
CPT/HCPCS: 71046; 99282; A9270-GY

== ENCOUNTER 2018-10-11 22:55 | Emergency (ER) | payer OTHER ==
[2018-10-11] MEDS ORDERED: predniSONE TAB* 20 MG PO ONE (23:33)
--- NOTE | 2018-10-11 23:42 | ED ---
Respiratory - HPI Summary HPI Summary: The patient is a 37 y/o M presenting to [facility] with a chief complaint of an intermittent nonproductive cough and SOB for a few days. He was recently being treated for bronchitis with Zithromax and prednisone, but these are similar symptoms that have returned. He also initially thought that it was his asthma flaring up, but his symptoms have been continuing to worsen. The pain is currently rated 6/10 in severity. He denies sore throat and rhinorrhea. 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 Former smoker. - History of Current Complaint Chief Complaint: EDGeneral Stated Complaint: CHEST DISCOMFORT Time Seen by Provider: 10/11/18 23:24 Hx Obtained From: Patient Onset/Duration: Lasting Days, Still Present Initial Severity: Mild Current Severity: Moderate Pain Intensity: 6 Character: Cough (Nonproductive) - intermittent Sputum Amount: None Aggravating Factor(s): Nothing Alleviating Factor(s): Other - proair inhaler Associated Signs and Symptoms: SOB - Allergy/Home Medications Allergies/Adverse Reactions: Allergies Allergy/AdvReac Type Severity Reaction Status Date / Time albuterol [From Ventolin HFA] Allergy Difficulty Verified 10/11/18 23:01 Breathing bupropion Allergy Difficulty Verified 07/28/18 02:51 Breathing buspirone [From BuSpar] Allergy Dizziness Verified 07/28/18 02:51 cephalexin Allergy Rash Verified 10/11/18 23:01 citalopram [From Celexa] Allergy See Comment Verified 10/11/18 23:01 codeine Allergy Difficulty Verified 10/11/18 23:01 Breathing doxycycline Allergy Rash Verified 10/11/18 23:01 escitalopram [From Lexapro] Allergy See Comment Verified 10/11/18 23:01 famotidine Allergy Rash Verified 10/11/18 23:01 fluticasone Allergy Difficulty Verified 10/11/18 23:01 [From Advair Diskus] Breathing Iodinated Contrast- Oral and Allergy Itching Verified 10/11/18 23:01 IV Dye moxifloxacin Allergy Hives Verified 10/11/18 23:01 omeprazole [From Prilosec] Allergy Rash Verified 10/11/18 23:01 Penicillins Allergy Rash Verified 10/11/18 23:01 Quinolones Allergy Rash Verified 10/11/18 23:01 salmeterol Allergy Difficulty Verified 10/11/18 23:01 [From Advair Diskus] Breathing sertraline [From Zoloft] Allergy Hallucinati Verified 10/11/18 23:01 ons sulfamethoxazole Allergy Rash Verified 10/11/18 23:01 [From Bactrim] trimethoprim [From Bactrim] Allergy Rash Verified 10/11/18 23:01 Home Medications: Home Medications Buspirone HCl 1 tab PO DAILY 10/11/18 [History Confirmed 10/11/18] PMH/Surg Hx/FS Hx/Imm Hx Endocrine/Hematology History: Reports: Hx Thyroid Disease Denies: Hx Anticoagulant Therapy, Hx Diabetes Cardiovascular History: Denies: Hx Congestive Heart Failure, Hx Deep Vein Thrombosis, Hx Hypertension , Hx Myocardial Infarction, Hx Pacemaker/ICD Respiratory History: Reports: Hx Asthma - ON MEDS, Hx Sleep Apnea - that was cured via surgery, Other Respiratory Problems/Disorders - pneumonia 2x Denies: Hx Chronic Obstructive Pulmonary Disease (COPD), Hx Lung Cancer, Hx Pneumonia, Hx Pulmonary Embolism GI History: Denies: Hx Gall Bladder Disease, Hx Gastrointestinal Bleed, Hx Ulcer, Hx Urosepsis History: Denies: Hx Kidney Stones, Hx Renal Disease Sensory History: Denies: Hx Contacts or Glasses, Hx Hearing Aid Opthamlomology History: Denies: Hx Contacts or Glasses Neurological History: Denies: Hx Dementia, Hx Migraine, Hx Seizures Psychiatric History: Reports: Hx Anxiety, Hx Panic Disorder - TO TAKE MEDICATION PRIOR TO MRI Denies: Hx Depression, Hx Schizophrenia, Hx Bipolar Disorder, Hx Substance Abuse - Surgical History Surgery Procedure, Year, and Place: RIGHT ELBOW RECONSTRUCTION SURGERY 1983,. SLEEP APNEA SURGERY 2010 - Tonsilectomy, uvula, stretching throat. CHOLECYSTECTOMY - 09/10/16. carpal tunnel 2018. cicumcision with biopsy. R carpal tunnel 2018 - Immunization History Date of Tetanus Vaccine: unknown Date of Influenza Vaccine: 07/12/15 Infectious Disease History: No Infectious Disease History: Denies: Hx Clostridium Difficile, Hx Hepatitis, Hx Human Immunodeficiency Virus (HIV), Hx of Known/Suspected MRSA, Hx Shingles, Hx Tuberculosis, Hx Known/ Suspected VRE, Hx Known/Suspected VRSA, History Other Infectious Disease, Traveled Outside the [place] in Last 30 Days - Family History Known Family History: Positive: Cardiac Disease - two uncles in their 40s, no primary relatives, Hypertension, Diabetes, Other - TIA on paternal side, cancer on both sides, blood clots, asthma Family History: FHx of seasonal allergies - both parents. TIA on paternal side, cancer on both sides, blood clots - Social History Alcohol Use: None Hx Substance Use: No Substance Use Type: Reports: None Substance Use Comment - Amount & Last Used: benzo's in the past Hx Tobacco Use: Yes Smoking Status (MU): Former Smoker Type: Cigarettes Amount Used/How Often: 1/2 ppd Length of Time of Smoking/Using Tobacco: 15 yrs Have You Smoked in the Last Year: No Review of Systems Negative: Sore Throat, Nasal Discharge Positive: Shortness Of Breath, Cough - nonproductive, intermittent All Other Systems Reviewed And Are Negative: Yes Physical Exam - Summary Physical Exam Summary: Appearance: Well-appearing, Well-nourished, lying in bed comfortable Skin: Warm, dry, no obvious rash Eyes: sclera anicteric, no conjunctival pallor ENT: mucous membranes moist Neck: deferred Respiratory: No signs of respiratory distress Cardiovascular: Appears well perfused, pulses are nml Abdomen: deferred Musculoskeletal: Moving all 4 extremities without obvious discomfort Neurological: Awake and alert, mentation is normal, speech is fluent and appropriate Psychiatric: affect is normal, does not appear anxious or depressed Triage Information Reviewed: Yes Vital Signs On Initial Exam: Initial Vitals Temp Pulse Resp BP Pulse Ox 99.0 F 78 16 125/92 94 10/11/18 22:57 10/11/18 22:57 10/11/18 22:57 10/11/18 22:57 10/11/18 22:57 Vital Signs Reviewed: Yes Diagnostics - Vital Signs Vital Signs Temp Pulse Resp BP Pulse Ox 10/11/18 23:13 84 97 10/11/18 23:12 89 153/105 95 10/11/18 22:57 99.0 F 78 16 125/92 94 - Laboratory Lab Statement: Any lab studies that have been ordered have been reviewed, and results considered in the medical decision making process. Disposition - Course Course Of Treatment: The patient is a 37 y/o M presenting with a chief complaint of an intermittent nonproductive cough and SOB for a few days. He denies sore throat and rhinorrhea. He was recently being treated for bronchitis with Zithromax and prednisone. 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 Former smoker. Physical exam is normal. In the ED course, the patient is given Prednisone. He is diagnosed with bronchitis. He will be discharged home with a prescription for Beclomethasone and Prednisone. He will follow up with his PCP. He agrees with this plan and understands the need for return to the ED if symptoms worsen. - Diagnoses Provider Diagnoses: Bronchitis Discharge - Sign-Out/Discharge Documenting (check all that apply): Patient Departure - Patient will be discharged home. - Discharge Plan Condition: Good Disposition: HOME Prescriptions: Beclomethasone 80 MCG MDI(NF) [Qvar 80 MCG MDI(NF)] 1 puff INH BID #1 mdi predniSONE TAB* [Deltasone 20 MG TAB*] 40 mg PO DAILY 4 Days #8 tab Forms: *Work Release Referrals: Shad Uriostegui MD [Primary Care Provider] - 2 Days Additional Instructions: Given your extensive history of allergies to antibiotics, I have decided to hold on an antibiotic as I don't think it is likely to be very helpful to you. Close followup with your primary care doctor to manage your asthma better is important. The ED is not set up to provide that kind of ongoing help. - Billing Disposition and Condition Condition: GOOD Disposition: Home - Attestation Statements Document Initiated by Jean: Yes Documenting Aroldoibe: Cammie Yanez Provider For Whom Jean is Documenting (Include Credential): MD Jean Lucia Attestation: Cammie Weinberg scribed for Dr. Rashel So MD on 10/12/18 at 0646. Scribe Documentation Reviewed: Yes Provider Attestation: The documentation as recorded by the Cammie castillo accurately reflects the service I personally performed and the decisions made by me, Dr. Rashel So MD Status of Scrjames Document: Viewed
[2018-10-11 23:51] VITALS: BP 158/102
== END 2018-10-11 23:53 | disposition home or self-care (01) ==
LOC: ED 22:55
DX: J45.909 Unspecified asthma, uncomplicated (principal); F41.0 Panic disorder [episodic paroxysmal anxiety]; Z88.5 Allergy status to narcotic agent; Z88.0 Allergy status to penicillin; Z88.2 Allergy status to sulfonamides; Z88.8 Allergy status to other drugs, medicaments and biological substances; Z88.1 Allergy status to other antibiotic agents; Z91.041 Radiographic dye allergy status; Z87.891 Personal history of nicotine dependence
CPT/HCPCS: 99283; J7512

== ENCOUNTER 2018-11-08 16:39 | Emergency (ER) | payer OTHER ==
[2018-11-08 17:07] VITALS: BP 141/105
--- NOTE | 2018-11-08 18:09 | UC ---
Throat Pain/Nasal Casimiro HPI - HPI Summary HPI Summary: 7-10 days of worsening sinus pain nasal and chest congestion, low grade temps- no cough - History of Current Complaint Chief Complaint: UCGeneralIllness Stated Complaint: CONGESTED Time Seen by Provider: 11/08/18 17:56 Hx Obtained From: Patient Onset/Duration: Gradual Onset, Lasting Days - 7 Pain Intensity: 6 Pain Scale Used: 0-10 Numeric Cough: None Associated Signs & Symptoms: Positive: Negative - Allergies/Home Medications Allergies/Adverse Reactions: Allergies Allergy/AdvReac Type Severity Reaction Status Date / Time albuterol [From Ventolin HFA] Allergy Difficulty Verified 10/11/18 23:01 Breathing bupropion Allergy Difficulty Verified 07/28/18 02:51 Breathing buspirone [From BuSpar] Allergy Dizziness Verified 07/28/18 02:51 cephalexin Allergy Rash Verified 10/11/18 23:01 citalopram [From Celexa] Allergy See Comment Verified 10/11/18 23:01 codeine Allergy Difficulty Verified 10/11/18 23:01 Breathing doxycycline Allergy Rash Verified 10/11/18 23:01 escitalopram [From Lexapro] Allergy See Comment Verified 10/11/18 23:01 famotidine Allergy Rash Verified 10/11/18 23:01 fluticasone Allergy Difficulty Verified 10/11/18 23:01 [From Advair Diskus] Breathing Iodinated Contrast- Oral and Allergy Itching Verified 10/11/18 23:01 IV Dye moxifloxacin Allergy Hives Verified 10/11/18 23:01 omeprazole [From Prilosec] Allergy Rash Verified 10/11/18 23:01 Penicillins Allergy Rash Verified 10/11/18 23:01 Quinolones Allergy Rash Verified 10/11/18 23:01 salmeterol Allergy Difficulty Verified 10/11/18 23:01 [From Advair Diskus] Breathing sertraline [From Zoloft] Allergy Hallucinati Verified 10/11/18 23:01 ons sulfamethoxazole Allergy Rash Verified 10/11/18 23:01 [From Bactrim] trimethoprim [From Bactrim] Allergy Rash Verified 10/11/18 23:01 Home Medications: Home Medications Ibuprofen [Ibu] 600 mg PO 11/08/18 [History] PMH/Surg Hx/FS Hx/Imm Hx Endocrine History: Hypothyroidism, Dyslipidemia Psychological History: Anxiety Other History Of: Negative For: HIV, Hepatitis B, Hepatitis C, Anticoagulant Therapy - Surgical History Surgical History: Yes Surgery Procedure, Year, and Place: RIGHT ELBOW RECONSTRUCTION SURGERY 1983,. SLEEP APNEA SURGERY 2010 - Tonsilectomy, uvula, stretching throat. CHOLECYSTECTOMY - 09/10/16. carpal tunnel 2018. cicumcision with biopsy. R carpal tunnel 2018 - Family History Known Family History: Positive: Cardiac Disease - two uncles in their 40s, no primary relatives, Hypertension, Diabetes, Other - TIA on paternal side, cancer on both sides, blood clots, asthma Family History: FHx of seasonal allergies - both parents. TIA on paternal side, cancer on both sides, blood clots - Social History Occupation: Unemployed Lives: With Family Alcohol Use: None Substance Use Type: None Substance Use Comment - Amount & Last Used: benzo's in the past Smoking Status (MU): Former Smoker Type: Cigarettes Amount Used/How Often: 1/2 ppd Length of Time of Smoking/Using Tobacco: 15 yrs Have You Smoked in the Last Year: No When Did the Patient Quit Smoking/Using Tobacco: 2016 Household Exposure Type: Cigarettes - Immunization History Most Recent Influenza Vaccination: fall 2015 Most Recent Tetanus Shot: utd Most Recent Pneumonia Vaccination: fall 2015 Review of Systems All Other Systems Reviewed And Are Negative: Yes Constitutional: Positive: Fever, Fatigue Skin: Positive: Negative Eyes: Positive: Negative ENT: Positive: Nasal Discharge, Sinus Congestion Respiratory: Positive: Negative Cardiovascular: Positive: Negative Gastrointestinal: Positive: Negative Genitourinary: Positive: Negative Motor: Positive: Negative Neurovascular: Positive: Negative Musculoskeletal: Positive: Arthralgia Neurological: Positive: Headache Psychological: Positive: Negative Is Patient Immunocompromised?: No Physical Exam Triage Information Reviewed: Yes Appearance: Well-Appearing, No Pain Distress, Obese Vital Signs: Initial Vital Signs Temp 99.7 F 11/08/18 17:02 Pulse 114 11/08/18 17:02 Resp 16 11/08/18 17:02 BP 141/105 11/08/18 17:02 Pulse Ox 98 11/08/18 17:02 Vital Signs Reviewed: Yes Eye Exam: Normal Eyes: Positive: Conjunctiva Clear ENT Exam: Normal ENT: Positive: Normal ENT inspection, Hearing grossly normal, Pharynx normal, Nasal congestion, Nasal drainage, TMs normal, Sinus tenderness, Uvula midline. Negative: Tonsillar swelling, Tonsillar exudate, Trismus, Muffled voice, Hoarse voice, Dental tenderness Dental Exam: Normal Neck exam: Normal Neck: Positive: Supple, Nontender, No Lymphadenopathy Respiratory Exam: Normal Respiratory: Positive: Chest non-tender, Lungs clear, Normal breath sounds, No respiratory distress, No accessory muscle use Cardiovascular Exam: Normal Cardiovascular: Positive: RRR, No Murmur, Pulses Normal, Brisk Capillary Refill Musculoskeletal Exam: Normal Musculoskeletal: Positive: Strength Intact, ROM Intact, No Edema Neurological Exam: Normal Neurological: Positive: Alert, Muscle Tone Normal Psychological Exam: Normal Skin Exam: Normal Throat Pain/Nasal Course/Dx - Course Assessment/Plan: stop benadryl, use nasal saline, zithromax, increase fluids follow wiht pcp prn - Differential Dx/Diagnosis Provider Diagnosis: Hypertension, Sinusitis Discharge - Sign-Out/Discharge Documenting (check all that apply): Patient Departure All imaging exams completed and their final reports reviewed: No Studies - Discharge Plan Condition: Stable Disposition: HOME Prescriptions: Azithromycin TAB* [Zithromax TAB (Z-SHANT) 250 mg #6 tabs] 2 tab PO .TODAY, THEN 1 DAILY #1 shant Patient Education Materials: Sodium Chloride (Into the nose), Sinusitis (ED), Hypertension (ED), Cold Symptoms (ED), How to Use Nasal [place] (ED) Referrals: Shad Uriostegui MD [Primary Care Provider] - 2 Weeks - Billing Disposition and Condition Condition: STABLE Disposition: Home - Attestation Statements Provider Attestation: Per institutional requirements, I have reviewed the chart, however, I was not consulted specifically or made aware of this patient by the midlevel provider. I did not personally evaluate, interact with , or disposition this patient.
== END 2018-11-08 18:19 | disposition home or self-care (01) ==
LOC: UCEAST 16:39
DX: J32.9 Chronic sinusitis, unspecified (principal); I10 Essential (primary) hypertension; Z88.5 Allergy status to narcotic agent; Z88.0 Allergy status to penicillin; Z88.2 Allergy status to sulfonamides; Z88.8 Allergy status to other drugs, medicaments and biological substances; Z88.1 Allergy status to other antibiotic agents; Z91.041 Radiographic dye allergy status; Z87.891 Personal history of nicotine dependence
CPT/HCPCS: 99202; G0463

== ENCOUNTER 2018-12-14 23:01 | Emergency (ER) | payer OTHER ==
--- OUTSIDE RECORDS SUMMARY | 2018-12-14 23:25 | XMS REPORT | Continuity of Care Document ---
:1980 External Reference #:[id number] Author Name Shannon Mayer PA-C Address [address] [place] [address] Care Team Providers Name Role Phone Shad Uriostegui MD Care Team Information Machine Specialist Unavailable Shad Uriostegui MD Primary Care Physician Unavailable Payers Date Identification Numbers Payment Provider Subscriber Expires: 2016 Policy Number: [id number] [facility] Amanda Segovia PayID: [id number] [address] [address] [place] [address] Policy Number: [id number] [facility] Amanda Segovia Group Number: [id number] [address] PayID: [id number] [place] [address] Advance Directives Description No Information Available Problems [...] M.D. 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 Tobacco Use Start: Unknown End: Former Cigarette Smoker Packs for 5 years Unknown Daily 2 Tobacco Use Start: Unknown quit at age 25 Tobacco Use Start: Unknown Never Smoked Cigars Tobacco Use Start: Unknown Never Smoked A Pipe Smoking Status Reviewed: 12/10/18 Never Smoked A Pipe Smokeless Tobacco Never [...] Form Strength Qnty SIG Indications Ordering Provider Clonazepam / Active Unknown 0000 Proair HFA / Active Aerosol 108(90Bas 2unit use as Unknown 0000 e) mcg/ac s directed Tums / Active Unknown 0000 Levothyroxine / Active Tablets 137mcg Earl Sodium 0000 , Natali PHILLIPS Losartan / Active Tablets 100mg Earl Potassium 0000 , Natali PHILLIPS Clindamycin HCL 07/28/ Hx Capsules 300mg 56cap Take 1 J32.4 Baron Acosta 2018 - s capsule by Cody 09/02/ mouth every r, M.D. 2018 6 hours for 14 days for infection Neurontin /00/ Hx Capsules 300mg 100ca 1 tab qhs Unknown 0000 - ps for 3 days, then 1 tab 2019 bid for 3 days, then 1 tab tid Neurontin /00/ Hx Capsules 100mg Unknown 0000 - 2018 Levothyroxine / Hx Unknown Sodium 0000 - 2018 Nasonex 00/ Hx Suspension 50mcg/Act 17GMS 2 sprays Baron N. 0000 - intranasal Strominge 12/10/ daily Kirsten bernal 2019 Immunizations Description No Information Available Vital Signs Date Vital Result Comment 12/10/2018 1:59pm Weight 280.00 lb Weight 127.008 kg Height 70 inches 5'10" Height in cm's 177.8 cm BMI (Body Mass Index) 40.2 kg/m2 07/28/2018 11:31am Weight 260.00 lb Weight 117.936 [...] Test Result H/L Range Note Surgical 03/21/2011 [facility] Surgical 1 Pathology c/o Department of Laboratories Pathology ----- <[place] [address] NOTE> [phone] MRSA/Vre Screen 03/21/2011 [facility] MRSA/Vre NFICU 2 c/o Department [place] [address] [phone] CBC No Diff 03/14/2011 [facility] White Blood 9.6 CUMM 4.8-10.8 c/o Department [place] [address] [phone] Red Cell Count 5.52 CUMM 4.6-6.2 Hemoglobin 15.5 g/dL 14.0-18.0 Hematocrit 47 % 42-52 Mean Corpuscular Volume 86 um3 80-94 Mean Corpuscular Hemoglob 28 pg 27-31 Mean Corpuscular HGB Cone 33 g/dL 32-36 Redcell Distribution WDTH 14 % 10.5-15 Platelet Count 231 CUMM 150-450 Mean Platelet Volume 9.4 um3 7.4-10.4 Basic Metabolic 03/14/2011 [facility] Sodium 138 mmol/ L 135-145 Panel c/o Department [place] [address] [phone] Potassium 4.0 mmol/L 3.5-5.0 Chloride 104 mmol/L 101-111 Co2 (Carbon Dioxide) 27.0 mmol/L 22-32 Anion Gap 7.0 mmol/L 2-11 3 Glucose 102 mg/dL High 70-100 BUN 9 mg/dL 6-24 Creatinine 0.80 mg/dL 0.50-1.40 One Over Creatinine 1.20 BUN/Creatinine Ratio 11.3 8-20 Calcium 9.9 mg/dL 8.1-9.9 eGFR Non- 112.0 > 60 eGFR 144.1 > 60 4 1 --- RUN DATE: 03/22/11 [facility] NMI LIVE PAGE 1 RUN TIME: 1429 Specimen Inquiry RUN USER: INTERFACE -- Name: AMANDA SEGOVIA#: [id number] Status: DIS IN Re03/21/11 Age/Sex: 30/M Unit#: [id number] Location: [facility]. : 76 -- Specimen: [id number] SOUT Spec Date: 03/21/[address] [facility] [address]: Baron soto MD Spec Type: SURGICAL P Received: 03/21/11-1258 Copies to: SPECIMEN 1) RIGHT TONSIL 2) LEFT TONSIL 3) TIP OF UVULA HISTORY PRE-OP DIAGNOSIS: Sleep apnea. GROSS DESCRIPTION 1) The specimen is received in formalin labelled Amanda Segovia, Right Tonsil, and consists of a tonsil measuring 4.0 x 1.5 x 1.5 cm. Cut section demonstrates moss-pink, lobulated parenchyma. Senior Web Applications Developer section, one cassette. 2) The specimen is received in formalin labelled Amanda Segovia, Left Tonsil, and consists of a tonsil measuring 3.0 x 2.0 x 1.2 cm. Cut section demonstrates lobulated moss fleshy parenchyma. Senior Web Applications Developer section, one cassette. 3) The specimen is [...] 03/22/11 1429 -- -- DEPARTMENT OF PATHOLOGY, [address] [place] [address] [facility] Permit #[id number] Ahsan Fam M.D. Director Consuelo Herrera M.D. Arm Rest Builder Dir elmo -- 2 NO MRSA ISOLATED [...] (or dialysis) Procedures Date Code Description Status 12/10/2018 19967 Nasal Endoscopy, Diagnostic Completed 09/02/2018 89496 Bronchospasm Evaluation Completed 03/21/2011 92621 Tonsillectomy Age 12 And Over Completed 03/21/2011 95929 Uvulopalatopharyngoplasty Completed 03/21/2011 76746 Cautery Of Turbinates/Intramural Completed Encounters Type Date Location Provider Dx Diagnosis Office Visit 12/10/2018 [place] Saud Neal45.20 Mild intermittent 1:45p 10/28/07 [facility] asthma, uncomplicated J32.4 Chronic pansinusitis G47.33 Obstructive sleep apnea (adult) (pediatric) J41.0 Simple chronic bronchitis Office Visit 09/02/2018 [place] Baron Villavicencio45.20 Mild intermittent 2:15p 10/28/07 Kirsten Collado asthma, uncomplicated J32.4 Chronic pansinusitis Office Visit 07/28/2018 [place] Baron Villavicencio32.4 Chronic 11:15a 10/28/07 Kirsten Collado pansinusitis J45.20 Mild intermittent asthma, uncomplicated G47.33 Obstructive sleep apnea (adult) (pediatric) Office Visit 08/07/2011 [place] Baron Acosta 327.23 Obstructive 3:30p 10/28/07 Kirsten Collado Sleep Apnea Adult Pediatric 477.9 Rhinitis, Allergic Office Visit 03/07/2011 [place] Baron Acosta 327.23 Obstructive 3:45p 10/28/07 Kirsten Collado Sleep Apnea Adult Pediatric 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 478.1-4 Obstruction Of Nasal Airway 474.11 Hypertrophy, Tonsils 478.0 Hypertrophy, Nasal Turbinates Office Visit 02/13/2011 [place] Baron Acosta 327.23 Obstructive 3:00p 10/28/07 Kirsten Collado Sleep Apnea Adult Pediatric 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
--- NOTE | 2018-12-14 23:37 | ED ---
Hypertension - HPI Summary HPI Summary: This patient is a 38 year old M brought in by ambulance to ED with a chief complaint of heart racing and HTN since yesterday afternoon. BP showed 170/99 earlier today. Patient takes BP medicine but did not take it today, because he takes it at night. The patient rates the pain 4/10 in severity. Symptoms aggravated by nothing. Symptoms alleviated by nothing. PMHx of clonopin (3mg 1x a day usually at night, took it today at around 2145, for anxiety). - History of Current Complaint Chief Complaint: EDDysrhythmPalp Stated Complaint: CARDIAC ISSUE Time Seen by Provider: 12/14/18 23:12 Hx Obtained From: Patient Onset/Duration: Started Hours Ago Aggravating Factor(s): Nothing Alleviating Factor(s): Nothing - Allergies/Home Medications Allergies/Adverse Reactions: Allergies Allergy/AdvReac Type Severity Reaction Status Date / Time albuterol [From Ventolin HFA] Allergy Difficulty Verified 10/11/18 23:01 Breathing bupropion Allergy Difficulty Verified 07/28/18 02:51 Breathing buspirone [From BuSpar] Allergy Dizziness Verified 07/28/18 02:51 cephalexin Allergy Rash Verified 10/11/18 23:01 citalopram [From Celexa] Allergy See Comment Verified 10/11/18 23:01 codeine Allergy Difficulty Verified 10/11/18 23:01 Breathing doxycycline Allergy Rash Verified 10/11/18 23:01 escitalopram [From Lexapro] Allergy See Comment Verified 10/11/18 23:01 famotidine Allergy Rash Verified 10/11/18 23:01 fluticasone Allergy Difficulty Verified 10/11/18 23:01 [From Advair Diskus] Breathing Iodinated Contrast- Oral and Allergy Itching Verified 10/11/18 23:01 IV Dye moxifloxacin Allergy Hives Verified 10/11/18 23:01 omeprazole [From Prilosec] Allergy Rash Verified 10/11/18 23:01 Penicillins Allergy Rash Verified 10/11/18 23:01 Quinolones Allergy Rash Verified 10/11/18 23:01 salmeterol Allergy Difficulty Verified 10/11/18 23:01 [From Advair Diskus] Breathing sertraline [From Zoloft] Allergy Hallucinati Verified 10/11/18 23:01 ons sulfamethoxazole Allergy Rash Verified 10/11/18 23:01 [From Bactrim] trimethoprim [From Bactrim] Allergy Rash Verified 10/11/18 23:01 Home Medications: Home Medications Losartan Potassium 100 mg PO DAILY 12/14/18 [History Confirmed 12/14/18] PMH/Surg Hx/FS Hx/Imm Hx Endocrine/Hematology History: Reports: Hx Thyroid Disease Denies: Hx Anticoagulant Therapy, Hx Diabetes Cardiovascular History: Denies: Hx Congestive Heart Failure, Hx Deep Vein Thrombosis, Hx Hypertension , Hx Myocardial Infarction, Hx Pacemaker/ICD Respiratory History: Reports: Hx Asthma - ON MEDS, Hx Sleep Apnea - that was cured via surgery, Other Respiratory Problems/Disorders - pneumonia 2x Denies: Hx Chronic Obstructive Pulmonary Disease (COPD), Hx Lung Cancer, Hx Pneumonia, Hx Pulmonary Embolism GI History: Denies: Hx Gall Bladder Disease, Hx Gastrointestinal Bleed, Hx Ulcer, Hx Urosepsis History: Denies: Hx Kidney Stones, Hx Renal Disease Sensory History: Denies: Hx Contacts or Glasses, Hx Hearing Aid Opthamlomology History: Denies: Hx Contacts or Glasses Neurological History: Denies: Hx Dementia, Hx Migraine, Hx Seizures Psychiatric History: Reports: Hx Anxiety, Hx Panic Disorder - TO TAKE MEDICATION PRIOR TO MRI Denies: Hx Depression, Hx Schizophrenia, Hx Bipolar Disorder, Hx Substance Abuse - Surgical History Surgery Procedure, Year, and Place: RIGHT ELBOW RECONSTRUCTION SURGERY 1983,. SLEEP APNEA SURGERY 2010 - Tonsilectomy, uvula, stretching throat. CHOLECYSTECTOMY - 09/10/16. carpal tunnel 2018. cicumcision with biopsy. R carpal tunnel 2018 - Immunization History Date of Tetanus Vaccine: unknown Date of Influenza Vaccine: 07/12/15 Infectious Disease History: No Infectious Disease History: Denies: Hx Clostridium Difficile, Hx Hepatitis, Hx Human Immunodeficiency Virus (HIV), Hx of Known/Suspected MRSA, Hx Shingles, Hx Tuberculosis, Hx Known/ Suspected VRE, Hx Known/Suspected VRSA, History Other Infectious Disease, Traveled Outside the [place] in Last 30 Days - Family History Known Family History: Positive: Cardiac Disease - two uncles in their 40s, no primary relatives, Hypertension, Diabetes, Other - TIA on paternal side, cancer on both sides, blood clots, asthma Family History: FHx of seasonal allergies - both parents. TIA on paternal side, cancer on both sides, blood clots - Social History Alcohol Use: None Hx Substance Use: No Substance Use Type: Reports: None Substance Use Comment - Amount & Last Used: benzo's in the past Hx Tobacco Use: Yes Smoking Status (MU): Former Smoker Type: Cigarettes Amount Used/How Often: 1/2 ppd Length of Time of Smoking/Using Tobacco: 15 yrs Have You Smoked in the Last Year: No Review of Systems Negative: Fever Positive: Palpitations - heart racing, Other - HTN All Other Systems Reviewed And Are Negative: Yes Physical Exam - Summary Physical Exam Summary: VITAL SIGNS: Reviewed. GENERAL: Patient is a well-developed and nourished MALE who is lying comfortable in the stretcher. Patient is not in any acute respiratory distress. HEAD AND FACE: No signs of trauma. No ecchymosis, hematomas or skull depressions. No sinus tenderness. EYES: PERRLA, EOMI x 2, No injected conjunctiva, no nystagmus. EARS: Hearing grossly intact. Ear canals and tympanic membranes are within normal limits. MOUTH: Oropharynx within normal limits. NECK: Supple, trachea is midline, no adenopathy, no JVD, no carotid bruit, no c- spine tenderness, neck with full ROM. CHEST: Symmetric, no tenderness at palpation LUNGS: Clear to auscultation bilaterally. No wheezing or crackles. CVS: Regular rate and rhythm, S1 and S2 present, no murmurs or gallops appreciated. ABDOMEN: Soft, non-tender. No signs of distention. No rebound no guarding, and no masses palpated. Bowel sounds are normal. EXTREMITIES: FROM in all major joints, no edema, no cyanosis or clubbing. NEURO: Alert and oriented x 3. No acute neurological deficits. Speech is normal and follows commands. SKIN: Dry and warm Triage Information Reviewed: Yes Vital Signs On Initial Exam: Initial Vitals Temp Pulse Resp BP Pulse Ox 98.6 F 100 18 117/92 94 12/14/18 23:05 12/14/18 23:05 12/14/18 23:05 12/14/18 23:05 12/14/18 23:05 Vital Signs Reviewed: Yes Diagnostics - Vital Signs Vital Signs Temp Pulse Resp BP Pulse Ox 12/14/18 23:05 98.6 F 100 18 117/92 94 - Laboratory Lab Statement: Any lab studies that have been ordered have been reviewed, and results considered in the medical decision making process. - EKG 2311 Cardiac Rate: NL - 102 BPM EKG Rhythm: Sinus Rhythm Summary of EKG Findings: Normal axis. Normal interval. No ischemic changes. Hypertension Course/Dx - Course Assessment/Plan: This patient is a 38 year old M brought in by ambulance to ED with a chief complaint of heart racing and HTN since yesterday afternoon. BP showed 170/99 earlier today. Patient takes BP medicine but did not take it today , because he takes it at night. Upon arrival in the ED, the patient's BP is normal. EKG done at 2312 reveals NSR at 102 BPM and normal axis, normal interval , and no ischemic changes. This patient has been asymptomatic since he arrived in the ED. He will be discharged with dx of anxiety. Patient understands and agrees with this plan. - Diagnoses Differential Diagnosis/HQI PQRI: Other - anxiety Provider Diagnoses: Anxiety Discharge - Sign-Out/Discharge Documenting (check all that apply): Patient Departure - discharge Patient Received Moderate/Deep Sedation with Procedure: No - Discharge Plan Condition: Stable Disposition: HOME Patient Education Materials: Anxiety (ED) Referrals: Shad Uriostegui MD [Primary Care Provider] - (Follow up in 1-2 days.) Additional Instructions: RETURN TO THE EMERGENCY DEPARTMENT FOR CHANGING OR WORSENING SYMPTOMS. FOLLOW UP WITH PCP IN 1-2 DAYS. - Attestation Statements Document Initiated by Scribe: Yes Documenting Scribe: Bernardo Hunter Provider For Whom Scribe is Documenting (Include Credential): Mabel Patel MD Scribe Attestation: Bernardo Weinberg, scribed for Mabel Patel MD on 12/15/18 at 0018. Status of Scribe Document: Ready
[2018-12-15 00:50] VITALS: BP 101/81
== END 2018-12-15 00:50 | disposition home or self-care (01) ==
LOC: ED 23:01
DX: F41.0 Panic disorder [episodic paroxysmal anxiety] (principal); J45.909 Unspecified asthma, uncomplicated; Z88.5 Allergy status to narcotic agent; Z88.0 Allergy status to penicillin; Z88.2 Allergy status to sulfonamides; Z88.8 Allergy status to other drugs, medicaments and biological substances; Z88.1 Allergy status to other antibiotic agents; Z91.041 Radiographic dye allergy status; Z82.49 Family history of ischemic heart disease and other diseases of the circulatory system; Z83.3 Family history of diabetes mellitus; Z82.5 Family history of asthma and other chronic lower respiratory diseases; Z80.9 Family history of malignant neoplasm, unspecified; Z87.891 Personal history of nicotine dependence
CPT/HCPCS: 93005; 99283

== ENCOUNTER 2019-01-17 15:44 | Emergency (ER) | payer OTHER ==
--- OUTSIDE RECORDS SUMMARY | 2019-01-17 15:51 | XMS REPORT | Continuity of Care Document ---
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 Shad Uriostegui MD Primary Care Physician Unavailable Payers Date Identification Numbers Payment Provider Subscriber Expires: 2016 Policy Number: [id number] [facility] Amanda Napier PayID: [id number] [address] [address] [place] [address] Policy Number: [id number] [facility] Amanda Napier Group Number: [id number] [address] PayID: [id number] [place] [address] Advance Directives Description No Information Available Problems [...] Type Date Description Comments Sex Unknown 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 0000 - intranasal Strominge 12/10/ rnadall bernal M.D. 2019 Immunizations Description No Information Available Vital Signs Date Vital Result Comment 12/22/2018 2:16pm Weight 280.00 lb Weight 127.008 kg Height 70 inches 5'10" Height in cm's 177.8 cm BMI (Body Mass Index) 40.2 kg/m2 12/10/2018 1:59pm Weight 280.00 lb Weight 127.008 [...] Test Result H/L Range Note Surgical 03/21/2011 [facility] Surgical 1 Pathology c/o Department of Laboratories Pathology ----- <[place] [address] NOTE> [phone] MRSA/Vre Screen 03/21/2011 [facility] MRSA/Vre NFICU 2 c/o Department [place] [address] [phone] CBC No Diff 03/14/2011 [facility] White Blood 9.6 CUMM 4.8-10.8 c/o Department [place] [address] [phone] Red Cell Count 5.52 CUMM 4.6-6.2 Hemoglobin 15.5 g/dL 14.0-18.0 Hematocrit 47 % 42-52 Mean Corpuscular Volume 86 um3 80-94 Mean Corpuscular Hemoglob 28 pg 27-31 Mean Corpuscular HGB Cone 33 g/dL 32-36 Redcell Distribution WDTH 14 % 10.5-15 Platelet Count 231 CUMM 150-450 Mean Platelet Volume 9.4 um3 7.4-10.4 Basic Metabolic 03/14/2011 [facility] Sodium 138 mmol/ L 135-145 Panel c/o Department [place] [address] [phone] Potassium 4.0 mmol/L 3.5-5.0 Chloride 104 mmol/L 101-111 Co2 (Carbon Dioxide) 27.0 mmol/L 22-32 Anion Gap 7.0 mmol/L 2-11 3 Glucose 102 mg/dL High 70-100 BUN 9 mg/dL 6-24 Creatinine 0.80 mg/dL 0.50-1.40 One Over Creatinine 1.20 BUN/Creatinine Ratio 11.3 8-20 Calcium 9.9 mg/dL 8.1-9.9 eGFR Non- 112.0 > 60 eGFR 144.1 > 60 4 1 --- RUN DATE: 03/22/11 [facility] NMI LIVE PAGE 1 RUN TIME: 1429 Specimen Inquiry RUN USER: INTERFACE -- [id number] Status: DIS IN Re03/21/11 Age/Sex: 30/M Unit#: [id number] Location: [facility]. : [birth year] -- Specimen: [id number] [facility] Spec Date: 03/21/[address] [facility] [address]: Baron soto MD Spec Type: SURGICAL P Received: 03/21/11-1258 Copies to: SPECIMEN 1) RIGHT TONSIL 2) LEFT TONSIL 3) TIP OF UVULA HISTORY PRE-OP DIAGNOSIS: Sleep apnea. GROSS DESCRIPTION 1) The specimen is received in formalin labelled Amanda Napier, Right Tonsil, and consists of a tonsil measuring 4.0 x 1.5 x 1.5 cm. Cut section demonstrates moss-pink, lobulated parenchyma. Supervisor [employer] section, one cassette. 2) The specimen is received in formalin labelled Amanda Napier, Left Tonsil, and consists of a tonsil measuring 3.0 x 2.0 x 1.2 cm. Cut section demonstrates lobulated moss fleshy parenchyma. Supervisor [employer] section, one cassette. 3) The specimen is received in formalin labelled Amanda Napier, Uvula Tip, and consists of a uvula tip measuring 0.7 x 0.6 x 0.5 cm. Submitted entirely, one cassette. DIAGNOSIS 1) Oropharynx, right tonsil, tonsillectomy: Tonsillar tissue with follicular lymphoid hyperplasia. 2) Oropharynx, left tonsil, tonsillectomy: Tonsillar tissue with follicular lymphoid hyperplasia. 3) Tip of uvula, resection: Segment of uvula. Signed Electronically by: AHSAN FAM MD 03/22/11 1429 -- -- DEPARTMENT OF PATHOLOGY, [address] [place] [address] [facility] Permit #[id number] Ahsan Fam M.D. Director Consuelo Herrera M.D. Music Video Producer Dir elmo -- 2 NO MRSA ISOLATED [...] dialysis) Procedures Date Code Description Status 12/10/2018 50866 Nasal Endoscopy, Diagnostic Completed 09/02/2018 81794 Bronchospasm Evaluation Completed 03/21/2011 57042 Tonsillectomy Age 12 And Over Completed 03/21/2011 84213 Uvulopalatopharyngoplasty Completed 03/21/2011 75283 Cautery Of Turbinates/Intramural Completed Encounters Type Date Location Provider Dx Diagnosis Office Visit 12/10/2018 [place] Esther Neal.20 Mild intermittent 1:45p 10/28/07 [facility] asthma, uncomplicated J32.4 Chronic pansinusitis G47.33 Obstructive sleep apnea (adult) (pediatric) J41.0 Simple chronic bronchitis Office Visit 09/02/2018 [place],After Baron Santana.20 Mild intermittent 2:15p 10/28/07 Kirsten Collado asthma, uncomplicated J32.4 Chronic pansinusitis Office Visit 07/28/2018 [place],After Baron Billings4 Chronic 11:15a 10/28/07 Kirsten Collado pansinusitis J45.20 Mild intermittent asthma, uncomplicated G47.33 Obstructive sleep apnea (adult) (pediatric) Office Visit 08/07/2011 [place],After Baron De La Cruz.23 Obstructive 3:30p 10/28/07 Kirsten Clolado Sleep Apnea Adult Pediatric 477.9 Rhinitis, Allergic Office Visit 03/07/2011 [place],After Baron De La Cruz.23 Obstructive 3:45p 10/28/07 Kirsten Collado Sleep Apnea Adult Pediatric 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
[2019-01-17 15:54] VITALS: BP 134/92
[2019-01-17] MEDS ORDERED: Levalbuterol 0.63MG/3ML NEB* UNIT OF USE INH ONE (16:06)
--- NOTE | 2019-01-17 16:09 | UC ---
Throat Pain/Nasal Casimiro HPI - HPI Summary HPI Summary: feeling ill for about a week with head and chest congestion, cough, lightheadedness, headache. had a CT of the sinuses which showed acute sinusitis , he was prescribed something but insurance would not cover it so he was never treated. - History of Current Complaint Chief Complaint: UCRespiratory Stated Complaint: CONGESTED Time Seen by Provider: 01/17/19 15:54 Hx Obtained From: Patient Onset/Duration: Gradual Onset, Lasting Weeks Severity: Moderate Pain Intensity: 4 Associated Signs & Symptoms: Positive: Sinus Discomfort, Nasal Discharge - Allergies/Home Medications Allergies/Adverse Reactions: Allergies Allergy/AdvReac Type Severity Reaction Status Date / Time albuterol [From Ventolin HFA] Allergy Difficulty Verified 01/17/19 15:55 Breathing bupropion Allergy Difficulty Verified 01/17/19 15:55 Breathing buspirone [From BuSpar] Allergy Dizziness Verified 01/17/19 15:55 cephalexin Allergy Rash Verified 01/17/19 15:55 citalopram [From Celexa] Allergy See Comment Verified 01/17/19 15:55 codeine Allergy Difficulty Verified 01/17/19 15:55 Breathing doxycycline Allergy Rash Verified 01/17/19 15:55 escitalopram [From Lexapro] Allergy See Comment Verified 01/17/19 15:55 famotidine Allergy Rash Verified 01/17/19 15:55 fluticasone Allergy Difficulty Verified 01/17/19 15:55 [From Advair Diskus] Breathing Iodinated Contrast- Oral and Allergy Itching Verified 01/17/19 15:55 IV Dye moxifloxacin Allergy Hives Verified 01/17/19 15:55 omeprazole [From Prilosec] Allergy Rash Verified 01/17/19 15:55 Penicillins Allergy Rash Verified 01/17/19 15:55 Quinolones Allergy Rash Verified 01/17/19 15:55 salmeterol Allergy Difficulty Verified 01/17/19 15:55 [From Advair Diskus] Breathing sertraline [From Zoloft] Allergy Hallucinati Verified 01/17/19 15:55 ons sulfamethoxazole Allergy Rash Verified 01/17/19 15:55 [From Bactrim] trimethoprim [From Bactrim] Allergy Rash Verified 01/17/19 15:55 Home Medications: Home Medications Calcium Carbonate CHEW TAB* [Tums*] 1,000 mg PO BID PRN 01/17/19 [History Confirmed 01/17/19] diphenhydrAMINE HCl [Benadryl Allergy 25 MG CAP] 25 mg PO QPM PRN 01/17/19 [ History Confirmed 01/17/19] PMH/Surg Hx/FS Hx/Imm Hx Previously Healthy: Yes Other History Of: Negative For: HIV, Hepatitis B, Hepatitis C, Anticoagulant Therapy - Surgical History Surgical History: Yes Surgery Procedure, Year, and Place: RIGHT ELBOW RECONSTRUCTION SURGERY 1983,. SLEEP APNEA SURGERY 2010 - Tonsilectomy, uvula, stretching throat. CHOLECYSTECTOMY - 09/10/16, deviated septum. carpal tunnel 2017. cicumcision with biopsy. R carpal tunnel 2017 - Family History Known Family History: Positive: Cardiac Disease - two uncles in their 40s, no primary relatives, Hypertension, Diabetes, Other - TIA on paternal side, cancer on both sides, blood clots, asthma Family History: FHx of seasonal allergies - both parents. TIA on paternal side, cancer on both sides, blood clots - Social History Alcohol Use: None Substance Use Type: None Substance Use Comment - Amount & Last Used: benzo's in the past Smoking Status (MU): Former Smoker Type: Cigarettes Amount Used/How Often: 1/2 ppd Length of Time of Smoking/Using Tobacco: 15 yrs Have You Smoked in the Last Year: No When Did the Patient Quit Smoking/Using Tobacco: 2016 Household Exposure Type: Cigarettes - Immunization History Most Recent Influenza Vaccination: fall 2015 Most Recent Tetanus Shot: utd Most Recent Pneumonia Vaccination: fall 2015 Review of Systems All Other Systems Reviewed And Are Negative: Yes Constitutional: Positive: Negative Skin: Positive: Negative Eyes: Positive: Negative ENT: Positive: Sinus Congestion, Sinus Pain/Tenderness Respiratory: Positive: Shortness Of Breath, Cough Cardiovascular: Positive: Negative Gastrointestinal: Positive: Negative Genitourinary: Positive: Negative Motor: Positive: Negative Neurovascular: Positive: Negative Musculoskeletal: Positive: Negative Neurological: Positive: Negative Psychological: Positive: Negative Is Patient Immunocompromised?: No Physical Exam Triage Information Reviewed: Yes Appearance: Ill-Appearing, Pain Distress, Obese Vital Signs: Initial Vital Signs Temp 98.8 F 01/17/19 15:48 Pulse 110 01/17/19 15:48 Resp 24 01/17/19 15:48 BP 134/92 01/17/19 15:48 Pulse Ox 95 01/17/19 15:48 Vital Signs Reviewed: Yes Eye Exam: Normal ENT: Positive: Pharynx normal, Nasal congestion, Nasal drainage, TM bulging Dental Exam: Normal Neck exam: Normal Respiratory Exam: Normal Respiratory: Positive: Chest non-tender, Lungs clear, Normal breath sounds Cardiovascular Exam: Normal Cardiovascular: Positive: RRR, No Murmur, Pulses Normal Abdominal Exam: Normal Bowel Sounds: Positive: Present Musculoskeletal Exam: Normal Neurological Exam: Normal Psychological Exam: Normal Skin Exam: Normal Throat Pain/Nasal Course/Dx - Course Course Of Treatment: hx obtained, exam performed ,meds reviewed, neb treatment given and prescribed augmentin for his sinusitis that has remained untreated. - Differential Dx/Diagnosis Differential Diagnosis/HQI/PQRI: Influenza, Laryngitis, Otitis Media, Pharyngitis, Sinusitis, URI Provider Diagnosis: Sinusitis, Bronchospasm Discharge - Sign-Out/Discharge Documenting (check all that apply): Patient Departure All imaging exams completed and their final reports reviewed: No Studies - Discharge Plan Condition: Stable Disposition: HOME Prescriptions: Amoxicillin/Clavulanate TAB* [Augmentin TAB 875*] 875 mg PO BID #14 tab Patient Education Materials: Sinusitis (ED) Referrals: Shad Uriostegui MD [Primary Care Provider] - Additional Instructions: 1. take the medication as prescribed. 2. Get rest and use t your ihaler as needed. 3. Follow up if not improving with treatment - Billing Disposition and Condition Condition: STABLE Disposition: Home
== END 2019-01-17 16:52 | disposition home or self-care (01) ==
LOC: UCEAST 15:44
DX: J32.9 Chronic sinusitis, unspecified (principal); J98.01 Acute bronchospasm; Z88.8 Allergy status to other drugs, medicaments and biological substances; Z88.1 Allergy status to other antibiotic agents; Z91.041 Radiographic dye allergy status; Z87.891 Personal history of nicotine dependence; E66.9 Obesity, unspecified
CPT/HCPCS: 99212; G0463

== ENCOUNTER 2019-01-19 12:27 | Emergency (ER) | payer OTHER ==
[2019-01-19 12:36] VITALS: BP 126/87
--- NOTE | 2019-01-19 12:43 | UC ---
FLU HPI - HPI Summary HPI Summary: 38 y/o male presents to the urgent care c/o sinus pressure getting worse, productive cough w/ mild SOB specially at night time for the past 10 days. Pt reports symptoms started w/ a common cold and then worsen w/ the days, despite taking OTC medication. He was seen here at the clinic 2 days ago and Dx Sinusitis and Rx Biaxen PO. He also has Hx of chronic sinusitis and a sinus CT was done by his ENT DR Grimes or Dr Mayer and a nasal spur was found. He has a f/ u appt next Saturday01/26/2019. In the Ct sinusitis was also observed, but he never got treatment. He has been taken Biaxen and taken Delsym and other OTC medication to alleviate sinus congestion. He has also been using the the CPAV at night. Sinus pain and pressure w/ FOX is 8/10. Pt denies fever, SOB, chest pain, abdominal pain, N/v/D, dizziness, ear pain. - History of Current Complaint Chief Complaint: UCRespiratory Stated Complaint: FLU LIKE SYMP Time Seen by Provider: 01/19/19 12:41 Hx Obtained From: Patient Onset/Duration: Gradual Onset, Lasting Weeks - 10 days, Still Present, Worse Since - 2 days Severity Currently: Mild Severity Initially: Moderate Pain Intensity: 8 Pain Scale Used: 0-10 Numeric Associated Signs & Symptoms: Positive: Cough, Nasal Congestion - yellowish, Headache - Risk Factors Influenza Risk Factors: Negative - Allergy/Home Medications Allergies/Adverse Reactions: Allergies Allergy/AdvReac Type Severity Reaction Status Date / Time albuterol [From Ventolin HFA] Allergy Difficulty Verified 01/19/19 12:37 Breathing bupropion Allergy Difficulty Verified 01/19/19 12:37 Breathing cephalexin Allergy Rash Verified 01/19/19 12:37 citalopram [From Celexa] Allergy See Comment Verified 01/19/19 12:37 codeine Allergy Difficulty Verified 01/19/19 12:37 Breathing doxycycline Allergy Rash Verified 01/19/19 12:37 escitalopram [From Lexapro] Allergy See Comment Verified 01/19/19 12:37 famotidine Allergy Rash Verified 01/19/19 12:37 fluticasone Allergy Difficulty Verified 01/19/19 12:37 [From Advair Diskus] Breathing Iodinated Contrast- Oral and Allergy Itching Verified 01/19/19 12:37 IV Dye moxifloxacin Allergy Hives Verified 01/19/19 12:37 omeprazole [From Prilosec] Allergy Rash Verified 01/19/19 12:37 Penicillins Allergy Rash Verified 01/19/19 12:37 Quinolones Allergy Rash Verified 01/19/19 12:37 salmeterol Allergy Difficulty Verified 01/19/19 12:37 [From Advair Diskus] Breathing sertraline [From Zoloft] Allergy Hallucinati Verified 01/19/19 12:37 ons sulfamethoxazole Allergy Rash Verified 01/19/19 12:37 [From Bactrim] trimethoprim [From Bactrim] Allergy Rash Verified 01/19/19 12:37 Home Medications: Home Medications Diphenhydra/Phenyleph/Acetamin [Delsym Cough-Cold Nighttime Lq] 10 mg PO ONCE PRN 01/19/19 [History Confirmed 01/19/19] PMH/Surg Hx/FS Hx/Imm Hx Previously Healthy: Yes Endocrine History: Hypothyroidism Respiratory History: Asthma Other Respiratory History: Sleep apnea Other History Of: Negative For: HIV, Hepatitis B, Hepatitis C, Anticoagulant Therapy - Surgical History Surgical History: Yes Surgery Procedure, Year, and Place: RIGHT ELBOW RECONSTRUCTION SURGERY 1983,. SLEEP APNEA SURGERY 2010 - Tonsilectomy, uvula, stretching throat. CHOLECYSTECTOMY - 09/10/16, deviated septum. carpal tunnel 2018. cicumcision with biopsy - Family History Known Family History: Positive: Cardiac Disease - two uncles in their 40s, no primary relatives, Hypertension, Diabetes, Other - TIA on paternal side, cancer on both sides, blood clots, asthma Family History: FHx of seasonal allergies - both parents. TIA on paternal side, cancer on both sides, blood clots - Social History Occupation: Employed Full-time Lives: With Family Alcohol Use: None Substance Use Type: None Substance Use Comment - Amount & Last Used: benzo's in the past Smoking Status (MU): Former Smoker Type: Cigarettes Amount Used/How Often: 1/2 ppd Length of Time of Smoking/Using Tobacco: 15 yrs Have You Smoked in the Last Year: No When Did the Patient Quit Smoking/Using Tobacco: 2016 Household Exposure Type: Cigarettes - Immunization History Most Recent Influenza Vaccination: fall 2015 Most Recent Tetanus Shot: utd Most Recent Pneumonia Vaccination: fall 2015 Review of Systems All Other Systems Reviewed And Are Negative: Yes Constitutional: Positive: Negative Skin: Positive: Negative Eyes: Positive: Negative ENT: Positive: Nasal Discharge - yellowish, Sinus Congestion, Sinus Pain/ Tenderness - a lot of pressure, Other - moderate PND Respiratory: Positive: Cough - productive Cardiovascular: Positive: Negative Gastrointestinal: Positive: Negative Genitourinary: Positive: Negative Motor: Positive: Negative Neurovascular: Positive: Negative Musculoskeletal: Positive: Negative Neurological: Positive: Headache Psychological: Positive: Negative Is Patient Immunocompromised?: No Physical Exam - Summary Physical Exam Summary: Vitals: reviewed General: Well developed, well-nourished obese male patient with NAD. Head and face: Normocephalic and atraumatic, Positive tenderness over the frontal and maxillary sinuses.. Eyes: PERRLA, EOMI x 2. Normal conjunctiva. No eye discharge. ENT: Ears and TM with normal limits. Nose: edematous and erythematous nasal mucosa with with yellowish discharge and erythematous mucosa. Pharynx with erythema, no exudate. Moderate yellowish PND Neck: Supple, no JVD, no carotid bruits and no lymphadenopathy. Lungs: clear, no rales, no rhonchi, no wheezes. CVS: RRR, S1 and S2 present no murmurs or gallops appreciated. Abdomen: soft nontender with positive bowel sounds. Extremities: no edema noted. Neuro: WNL. Skin: warm and dry Triage Information Reviewed: Yes Vital Signs: Initial Vital Signs Temp 99.1 F 01/19/19 12:32 Pulse 108 01/19/19 12:32 Resp 24 01/19/19 12:32 BP 126/87 01/19/19 12:32 Pulse Ox 97 01/19/19 12:32 Flu Course/Dx - Course Course Of Treatment: 38 y/o male presents to the urgent care c/o sinus pressure getting worse, productive cough w/ mild SOB specially at night time for the past 10 days. Pt reports symptoms started w/ a common cold and then worsen w/ the days, despite taking OTC medication. He was seen here at the clinic 2 days ago and Dx Sinusitis and Rx Biaxen PO. He also has Hx of chronic sinusitis and a sinus CT was done by his ENT DR Grimes or Dr Mayer and a nasal spur was found. He has a f/ u appt next Saturday01/26/2019. In the Ct sinusitis was also observed, but he never got treatment. He has been taken Biaxen and taken Delsym and other OTC medication to alleviate sinus congestion. He has also been using the the CPAV at night. Sinus pain and pressure w/ FOX is 8/10. Pt denies fever, SOB, chest pain, abdominal pain, N/v/D, dizziness, ear pain. Hx obtained. Pt with 10 days of symptoms getting worse. Seen here at the clinic 2 days ago and Rx Biaxen. RApid influenxa A&B ordered to r/o co-infection, result: negative. Pt is hemodinamically stable, lungs are clear on auscultation. Pt Rx APrednisone PO and Tessalon tabs to alleviate symptoms. Advised to increase hydration, rest, continue w/ antibiotic. Discharge instructions explained to Pt. Strongly advised to f/u w/ his ENT DR Mayer at Dr Magana office for further management. Pt understood and agreed with plan of care. - Differential Dx/Diagnosis Differential Diagnosis/HQI/PQRI: Bronchitis, Influenza, Pneumonia, Upper Respiratory Infection, Other - sinusitis Provider Diagnosis: Acute bacterial sinusitis, Cough Discharge - Sign-Out/Discharge Documenting (check all that apply): Patient Departure - d/c home All imaging exams completed and their final reports reviewed: No Studies - Discharge Plan Condition: Stable Disposition: HOME Prescriptions: Benzonatate CAP* [Tessalon 100 MG CAP*] 100 mg PO TID PRN #21 cap PRN Reason: Cough predniSONE TAB* [Deltasone 20 MG TAB*] 20 mg PO DAILY #11 tab Patient Education Materials: Sinusitis (ED) Forms: *Work Release Referrals: Ezekiel Grimes MD [Medical Doctor] - 3 Days Shad Uriostegui MD [Primary Care Provider] - 2 Days Additional Instructions: 1- Please increase fluid intake and rest. Continue taking Biaxen PO full course of antibiotic to avoid resistance as directed. 2-Use saline drops as directed to help drain fluid. 3-Take Tessalon tab PO as directed to alleviate cough, Stop taken OTC cough combination medications which lead miner blasting increase your Heart rate. Also use your Albuterol inhaler specially at night to alleviate bronchospam and cough. 4-F/u w/ your ENT Dr Grimes or DR Mayer in 3 days or your appt next week for further management in your chronic sinusitis 5-If you develop SOB, chest pain please go immediately to the ER for further management - Billing Disposition and Condition Condition: STABLE Disposition: Home
[2019-01-19 13:01] LABS: Influenza A Molecular NEGATIVE (Negative); Influenza B Molecular NEGATIVE (Negative)
== END 2019-01-19 13:15 | disposition home or self-care (01) ==
LOC: UCEAST 12:27
DX: J01.90 Acute sinusitis, unspecified (principal); B96.89 Other specified bacterial agents as the cause of diseases classified elsewhere; R05 Cough; R06.02 Shortness of breath; J45.909 Unspecified asthma, uncomplicated; Z88.5 Allergy status to narcotic agent; Z88.1 Allergy status to other antibiotic agents; Z88.0 Allergy status to penicillin; Z88.2 Allergy status to sulfonamides; Z88.8 Allergy status to other drugs, medicaments and biological substances; Z91.041 Radiographic dye allergy status; Z87.891 Personal history of nicotine dependence
CPT/HCPCS: 99212; G0463

== ENCOUNTER 2019-02-26 20:55 | Emergency (ER) | payer OTHER ==
[2019-02-26 21:07] VITALS: BP 140/87
[2019-02-26] MEDS ORDERED: Azithromycin TAB* 250 MG PO ONE (21:23)
--- NOTE | 2019-02-26 21:25 | UC ---
Respiratory Complaint HPI - HPI Summary HPI Summary: 38-year-old male comes in with a chief complaint of upper respiratory tract infection symptoms for 4 days. He's had some runny nose cough chest congestion. He's been using his albuterol inhaler which does help with the chest congestion. He has had some chills and feeling hot. Here in clinic his temperature is 100.6. He has been making some sputum production. - History of Current Complaint Chief Complaint: UCRespiratory Stated Complaint: CHEST CONGESTION, AND SINUS PRESSURE Time Seen by Provider: 02/26/19 21:11 Pain Intensity: 0 - Allergies/Home Medications Allergies/Adverse Reactions: Allergies Allergy/AdvReac Type Severity Reaction Status Date / Time albuterol [From Ventolin HFA] Allergy Difficulty Verified 02/26/19 21:08 Breathing bupropion Allergy Difficulty Verified 02/26/19 21:08 Breathing cephalexin Allergy Rash Verified 02/26/19 21:08 citalopram [From Celexa] Allergy See Comment Verified 02/26/19 21:08 codeine Allergy Difficulty Verified 02/26/19 21:08 Breathing doxycycline Allergy Rash Verified 02/26/19 21:08 escitalopram [From Lexapro] Allergy See Comment Verified 02/26/19 21:08 famotidine Allergy Rash Verified 02/26/19 21:08 fluticasone Allergy Difficulty Verified 02/26/19 21:08 [From Advair Diskus] Breathing Iodinated Contrast- Oral and Allergy Itching Verified 02/26/19 21:08 IV Dye moxifloxacin Allergy Hives Verified 02/26/19 21:08 omeprazole [From Prilosec] Allergy Rash Verified 02/26/19 21:08 Penicillins Allergy Rash Verified 02/26/19 21:08 Quinolones Allergy Rash Verified 02/26/19 21:08 salmeterol Allergy Difficulty Verified 02/26/19 21:08 [From Advair Diskus] Breathing sertraline [From Zoloft] Allergy Hallucinati Verified 02/26/19 21:08 ons sulfamethoxazole Allergy Rash Verified 02/26/19 21:08 [From Bactrim] trimethoprim [From Bactrim] Allergy Rash Verified 02/26/19 21:08 PMH/Surg Hx/FS Hx/Imm Hx Previously Healthy: Yes Endocrine History: Hypothyroidism, Dyslipidemia Cardiovascular History: Hypertension Respiratory History: Asthma Other History Of: Negative For: HIV, Hepatitis B, Hepatitis C, Anticoagulant Therapy - Surgical History Surgical History: Yes Surgery Procedure, Year, and Place: RIGHT ELBOW RECONSTRUCTION SURGERY 1983,. SLEEP APNEA SURGERY 2010 - Tonsilectomy, uvula, stretching throat. CHOLECYSTECTOMY - 09/10/16, deviated septum. carpal tunnel 2018. cicumcision with biopsy - Family History Known Family History: Positive: Cardiac Disease - two uncles in their 40s, no primary relatives, Hypertension, Diabetes, Other - TIA on paternal side, cancer on both sides, blood clots, asthma Family History: FHx of seasonal allergies - both parents. TIA on paternal side, cancer on both sides, blood clots - Social History Alcohol Use: None Substance Use Type: None Substance Use Comment - Amount & Last Used: benzo's in the past Smoking Status (MU): Former Smoker Type: Cigarettes Amount Used/How Often: 1/2 ppd Length of Time of Smoking/Using Tobacco: 15 yrs Have You Smoked in the Last Year: No When Did the Patient Quit Smoking/Using Tobacco: 2016 Household Exposure Type: Cigarettes - Immunization History Most Recent Influenza Vaccination: fall 2015 Most Recent Tetanus Shot: utd Most Recent Pneumonia Vaccination: fall 2015 Review of Systems All Other Systems Reviewed And Are Negative: Yes Constitutional: Positive: Fever Skin: Positive: Negative Eyes: Positive: Negative ENT: Positive: Sore Throat, Nasal Discharge, Sinus Congestion Respiratory: Positive: Cough, Other - SEE HPI Cardiovascular: Positive: Negative Gastrointestinal: Positive: Negative Motor: Positive: Negative Neurovascular: Positive: Negative Musculoskeletal: Positive: Negative Neurological: Positive: Negative Psychological: Positive: Negative Is Patient Immunocompromised?: No Physical Exam Triage Information Reviewed: Yes Appearance: No Pain Distress, Well-Nourished, Ill-Appearing - MILD Vital Signs: Initial Vital Signs Temp 100.6 F 02/26/19 21:05 Pulse 110 02/26/19 21:05 Resp 18 02/26/19 21:05 BP 140/87 02/26/19 21:05 Pulse Ox 96 02/26/19 21:05 Vital Signs Reviewed: Yes Eye Exam: Normal Eyes: Positive: Conjunctiva Clear ENT: Positive: Pharyngeal erythema, Nasal congestion, Nasal drainage, TMs normal Neck exam: Normal Neck: Positive: Supple Respiratory: Positive: Lungs clear, Normal breath sounds, No respiratory distress Cardiovascular: Positive: Tachycardia Musculoskeletal Exam: Normal Musculoskeletal: Positive: Strength Intact, ROM Intact Neurological Exam: Normal Neurological: Positive: Alert Psychological Exam: Normal Psychological: Positive: Age Appropriate Behavior Skin Exam: Normal Respiratory Course/Dx - Course Course Of Treatment: DISCUSSED VIRAL VERSES BACTERIAL INFECTION AND THE ROLE OF ANTIBIOTICS. THE PATIENT PREFERS TO BE ON ANTIBIOTICS AT THIS TIME. - Differential Dx/Diagnosis Provider Diagnosis: Bronchitis with bronchospasm Discharge - Sign-Out/Discharge Documenting (check all that apply): Patient Departure All imaging exams completed and their final reports reviewed: No Studies - Discharge Plan Condition: Stable Disposition: HOME Prescriptions: Azithromycin 250 mg PO DAILY #4 tablet Patient Education Materials: Acute Bronchitis (ED), Bronchospasm (ED) Referrals: Shad Uriostegui MD [Primary Care Provider] - Additional Instructions: FOLLOW UP WITH YOUR DOCTOR IF NOT COMPLETELY IMPROVED. GO TO THE EMERGENCY DEPARTMENT IF YOUR CONDITION WORSENS OR ANY QUESTIONS OR CONCERNS. - Billing Disposition and Condition Condition: STABLE Disposition: Home
== END 2019-02-26 21:30 | disposition home or self-care (01) ==
LOC: UCEAST 20:55
DX: J20.9 Acute bronchitis, unspecified (principal); E03.9 Hypothyroidism, unspecified; E78.5 Hyperlipidemia, unspecified; I10 Essential (primary) hypertension; J45.909 Unspecified asthma, uncomplicated; Z88.5 Allergy status to narcotic agent; Z88.0 Allergy status to penicillin; Z88.2 Allergy status to sulfonamides; Z88.8 Allergy status to other drugs, medicaments and biological substances; Z88.1 Allergy status to other antibiotic agents; Z91.041 Radiographic dye allergy status; Z87.891 Personal history of nicotine dependence
CPT/HCPCS: 99212; A9270-GY; G0463

== ENCOUNTER 2019-03-23 14:43 | Emergency (ER) | payer OTHER ==
[2019-03-23 15:17] VITALS: BP 132/86
--- NOTE | 2019-03-23 15:40 | UC ---
Respiratory Complaint HPI - HPI Summary HPI Summary: pt had rhinoplasty for deviated septum 3 days ago. doing well overall, see surgeon tomorrow and today started feeling a bit anxious. is currently on antibiotic and tramadol from ENT. has hx of anxiety and so takes clonazepam qd. took one early today which helped calm him a bit. still feels like heart is beating faster than normal. occasional productive cough, no SOB, - History of Current Complaint Chief Complaint: UCRespiratory Stated Complaint: CONGESTED Time Seen by Provider: 03/23/19 15:16 Hx Obtained From: Patient Onset/Duration: Gradual Onset - over today Timing: Constant Severity Initially: Moderate Severity Currently: Moderate Pain Intensity: 5 Character: Cough: Productive Aggravating Factors: Nothing Alleviating Factors: Nothing Associated Signs And Symptoms: Positive: Nasal Congestion. Negative: Fever, Chills, Hemoptysis, Dizziness - Allergies/Home Medications Allergies/Adverse Reactions: Allergies Allergy/AdvReac Type Severity Reaction Status Date / Time albuterol [From Ventolin HFA] Allergy Difficulty Verified 03/23/19 15:06 Breathing bupropion Allergy Difficulty Verified 03/23/19 15:06 Breathing cephalexin Allergy Rash Verified 03/23/19 15:06 citalopram [From Celexa] Allergy See Comment Verified 03/23/19 15:06 codeine Allergy Difficulty Verified 03/23/19 15:06 Breathing doxycycline Allergy Rash Verified 03/23/19 15:06 escitalopram [From Lexapro] Allergy See Comment Verified 03/23/19 15:06 famotidine Allergy Rash Verified 03/23/19 15:06 fluticasone Allergy Difficulty Verified 03/23/19 15:06 [From Advair Diskus] Breathing Iodinated Contrast- Oral and Allergy Itching Verified 03/23/19 15:06 IV Dye moxifloxacin Allergy Hives Verified 03/23/19 15:06 omeprazole [From Prilosec] Allergy Rash Verified 03/23/19 15:06 Penicillins Allergy Rash Verified 03/23/19 15:06 Quinolones Allergy Rash Verified 03/23/19 15:06 salmeterol Allergy Difficulty Verified 03/23/19 15:06 [From Advair Diskus] Breathing sertraline [From Zoloft] Allergy Hallucinati Verified 03/23/19 15:06 ons sulfamethoxazole Allergy Rash Verified 03/23/19 15:06 [From Bactrim] trimethoprim [From Bactrim] Allergy Rash Verified 03/23/19 15:06 Home Medications: Home Medications Clindamycin HCl 300 mg PO TID 03/23/19 [History Confirmed 03/23/19] Ketorolac TAB * [Toradol TAB *] 10 mg PO Q6H 03/23/19 [History Confirmed ] Mupirocin 2% OINT* [Bactroban 2 % Oint*] 1 applic TOPICAL BID 03/23/19 [History Confirmed 03/23/19] PMH/Surg Hx/FS Hx/Imm Hx Previously Healthy: Yes Endocrine History: Hypothyroidism, Dyslipidemia Cardiovascular History: Hypertension Respiratory History: Other - sleep apnea Psychological History: Anxiety Other History Of: Negative For: HIV, Hepatitis B, Hepatitis C, Anticoagulant Therapy - Surgical History Surgical History: Yes Surgery Procedure, Year, and Place: RIGHT ELBOW RECONSTRUCTION SURGERY 1983,. SLEEP APNEA SURGERY 2010 - Tonsilectomy, uvula, stretching throat. CHOLECYSTECTOMY - 09/10/16, deviated septum. carpal tunnel 2017. cicumcision with biopsy. Nasal septum surgery 03/20/2019 - Family History Known Family History: Positive: Cardiac Disease - two uncles in their 40s, no primary relatives, Hypertension, Diabetes, Other - TIA on paternal side, cancer on both sides, blood clots, asthma Family History: FHx of seasonal allergies - both parents. 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 Lives: Alone Alcohol Use: None Substance Use Type: None Substance Use Comment - Amount & Last Used: benzo's in the past Smoking Status (MU): Former Smoker Type: Cigarettes Amount Used/How Often: 1/2 ppd Length of Time of Smoking/Using Tobacco: 15 yrs Have You Smoked in the Last Year: No When Did the Patient Quit Smoking/Using Tobacco: 2016 Household Exposure Type: Cigarettes - Immunization History Most Recent Influenza Vaccination: fall 2015 Most Recent Tetanus Shot: utd Most Recent Pneumonia Vaccination: fall 2015 Review of Systems All Other Systems Reviewed And Are Negative: Yes Constitutional: Positive: Negative Skin: Positive: Negative. Negative: Rash Respiratory: Positive: Cough Cardiovascular: Positive: Other - pulse elevated today Musculoskeletal: Positive: Negative Neurological: Positive: Negative. Negative: Headache Psychological: Positive: Anxious Physical Exam Triage Information Reviewed: Yes Appearance: Well-Appearing, No Pain Distress, Obese Vital Signs: Initial Vital Signs Temp 99.3 F 03/23/19 15:11 Pulse 104 03/23/19 15:11 Resp 18 03/23/19 15:11 BP 132/86 03/23/19 15:11 Pulse Ox 98 03/23/19 15:11 Vital Signs Reviewed: Yes Eyes: Positive: Conjunctiva Clear ENT: Positive: Nasal congestion - packing. Negative: Nasal drainage, Sinus tenderness Neck exam: Normal Neck: Positive: No Lymphadenopathy Respiratory Exam: Normal Respiratory: Positive: Lungs clear, Normal breath sounds Cardiovascular: Positive: RRR, Brisk Capillary Refill Neurological Exam: Normal Neurological: Positive: Alert Psychological Exam: Other - appears anxious about not working since , cannot use CPAP and will see surgeon tomorrow. He Googled how the packin gis removed and feels anxious about procedure Skin Exam: Normal Skin: Negative: Rashes Respiratory Course/Dx - Course Course Of Treatment: pt was offered Tylenol for fever but declines preferring to take it at home - Differential Dx/Diagnosis Differential Diagnosis/HQI/PQRI: Bronchitis, Lower Resp Infection, Pulmonary Embolism, Sinusitis, Other - anxiety Provider Diagnosis: Anxiety Discharge - Sign-Out/Discharge Documenting (check all that apply): Patient Departure All imaging exams completed and their final reports reviewed: No Studies - Discharge Plan Condition: Stable Disposition: HOME Patient Education Materials: Generalized Anxiety Disorder (ED) Referrals: Shad Uriostegui MD [Primary Care Provider] - Additional Instructions: rest and drink plenty of fluids use Tylenol as directed for fever Make sure you follow-up with Surgeon tomorrow as planned Please return here or to ER if at anytime your anxiety worsens or other symptoms develop - Billing Disposition and Condition Condition: STABLE Disposition: Home - Attestation Statements Provider Attestation: I was available for consult. This patient was seen by the [facility]. The patient was not presented to , seen by or examined by ny -Celso Calloway MD
== END 2019-03-23 15:58 | disposition home or self-care (01) ==
LOC: UCEAST 14:43
DX: F41.9 Anxiety disorder, unspecified (principal); E03.9 Hypothyroidism, unspecified; E78.5 Hyperlipidemia, unspecified; I10 Essential (primary) hypertension; Z88.5 Allergy status to narcotic agent; Z88.0 Allergy status to penicillin; Z88.2 Allergy status to sulfonamides; Z87.891 Personal history of nicotine dependence
CPT/HCPCS: 99211; G0463

== ENCOUNTER 2019-04-12 02:52 | Emergency (ER) | payer MEDICAID, OTHER ==
--- NOTE | 2019-04-12 03:13 | ED ---
Upper Extremity Pain - HPI Summary HPI Summary: This patient is a 38 year old M presenting to [facility] with a chief complaint of right shoulder pain s/p shoulder surgery on 04/10/19 at [place]. Patient has been taking Tylenol for pain without relief. He states he called to make an appointment with his surgeon on Saturday, but was instructed to come to the Emergency Department if he was unable to manage his pain. Pain rated 8/10 in severity. Denies fever. - History of Current Complaint Chief Complaint: EDShoulderClavicDavij Stated Complaint: SHOULDER PAIN POST OP SATURDAY PER PT Time Seen by Provider: 04/12/19 03:01 Hx Obtained From: Patient Mechanism Of Injury: Other - post surgical Onset/Duration: Started Days Ago Timing: Constant Severity Currently: Severe Pain Location: Shoulder Alleviating Factor(s): Nothing Associated Signs & Symptoms: Positive: Negative - Allergies/Home Medications Allergies/Adverse Reactions: Allergies Allergy/AdvReac Type Severity Reaction Status Date / Time albuterol [From Ventolin HFA] Allergy Difficulty Verified 03/23/19 15:06 Breathing bupropion Allergy Difficulty Verified 03/23/19 15:06 Breathing cephalexin Allergy Rash Verified 03/23/19 15:06 citalopram [From Celexa] Allergy See Comment Verified 03/23/19 15:06 codeine Allergy Difficulty Verified 03/23/19 15:06 Breathing doxycycline Allergy Rash Verified 03/23/19 15:06 escitalopram [From Lexapro] Allergy See Comment Verified 03/23/19 15:06 famotidine Allergy Rash Verified 03/23/19 15:06 fluticasone Allergy Difficulty Verified 03/23/19 15:06 [From Advair Diskus] Breathing Iodinated Contrast- Oral and Allergy Itching Verified 03/23/19 15:06 IV Dye moxifloxacin Allergy Hives Verified 03/23/19 15:06 omeprazole [From Prilosec] Allergy Rash Verified 03/23/19 15:06 Penicillins Allergy Rash Verified 03/23/19 15:06 Quinolones Allergy Rash Verified 03/23/19 15:06 salmeterol Allergy Difficulty Verified 03/23/19 15:06 [From Advair Diskus] Breathing sertraline [From Zoloft] Allergy Hallucinati Verified 03/23/19 15:06 ons sulfamethoxazole Allergy Rash Verified 03/23/19 15:06 [From Bactrim] trimethoprim [From Bactrim] Allergy Rash Verified 03/23/19 15:06 PMH/Surg Hx/FS Hx/Imm Hx Endocrine/Hematology History: Reports: Hx Thyroid Disease Denies: Hx Anticoagulant Therapy, Hx Diabetes Cardiovascular History: Reports: Hx Hypertension Denies: Hx Congestive Heart Failure, Hx Deep Vein Thrombosis, Hx Myocardial Infarction, Hx Pacemaker/ICD Respiratory History: Reports: Hx Asthma - ON MEDS, Hx Sleep Apnea - that was cured via surgery, Other Respiratory Problems/Disorders - pneumonia 2x Denies: Hx Chronic Obstructive Pulmonary Disease (COPD), Hx Lung Cancer, Hx Pneumonia, Hx Pulmonary Embolism GI History: Denies: Hx Gall Bladder Disease, Hx Gastrointestinal Bleed, Hx Ulcer, Hx Urosepsis History: Denies: Hx Kidney Stones, Hx Renal Disease Sensory History: Denies: Hx Contacts or Glasses, Hx Hearing Aid Opthamlomology History: Denies: Hx Contacts or Glasses Neurological History: Denies: Hx Dementia, Hx Migraine, Hx Seizures Psychiatric History: Reports: Hx Anxiety, Hx Panic Disorder - TO TAKE MEDICATION PRIOR TO MRI Denies: Hx Depression, Hx Schizophrenia, Hx Bipolar Disorder, Hx Substance Abuse - Surgical History Surgery Procedure, Year, and Place: RIGHT ELBOW RECONSTRUCTION SURGERY 1983,. SLEEP APNEA SURGERY 2010 - Tonsilectomy, uvula, stretching throat. CHOLECYSTECTOMY - 09/10/16, deviated septum. carpal tunnel 2018. cicumcision with biopsy. Nasal septum surgery 03/20/2019 - Immunization History Date of Tetanus Vaccine: unknown Date of Influenza Vaccine: 07/12/15 Infectious Disease History: No Infectious Disease History: Denies: Hx Clostridium Difficile, Hx Hepatitis, Hx Human Immunodeficiency Virus (HIV), Hx of Known/Suspected MRSA, Hx Shingles, Hx Tuberculosis, Hx Known/ Suspected VRE, Hx Known/Suspected VRSA, History Other Infectious Disease, Traveled Outside the [place] in Last 30 Days - Family History Known Family History: Positive: Cardiac Disease - two uncles in their 40s, no primary relatives, Hypertension, Diabetes, Other - TIA on paternal side, cancer on both sides, blood clots, asthma Family History: FHx of seasonal allergies - both parents. TIA on paternal side, cancer on both sides, blood clots - Social History Alcohol Use: None Hx Substance Use: No Substance Use Type: Reports: None Substance Use Comment - Amount & Last Used: benzo's in the past Hx Tobacco Use: Yes Smoking Status (MU): Former Smoker Type: Cigarettes Amount Used/How Often: 1/2 ppd Length of Time of Smoking/Using Tobacco: 15 yrs Have You Smoked in the Last Year: No Review of Systems Negative: Fever Positive: Myalgia - right shoulder pain All Other Systems Reviewed And Are Negative: Yes Physical Exam - Summary Physical Exam Summary: VITAL SIGNS: Reviewed. GENERAL: Patient is a well-developed and nourished male who is lying comfortable in the stretcher. Patient is not in any acute respiratory distress. HEAD AND FACE: No signs of trauma. No ecchymosis, hematomas or skull depressions. No sinus tenderness. EYES: PERRLA, EOMI x 2, No injected conjunctiva, no nystagmus. EARS: Hearing grossly intact. Ear canals and tympanic membranes are within normal limits. MOUTH: Oropharynx within normal limits. NECK: Supple, trachea is midline, no adenopathy, no JVD, no carotid bruit, no c- spine tenderness, neck with full ROM CHEST: Symmetric, no tenderness at palpation LUNGS: Clear to auscultation bilaterally. No wheezing or crackles. CVS: Regular rate and rhythm, S1 and S2 present, no murmurs or gallops appreciated. ABDOMEN: Soft, non-tender. No signs of distention. No rebound no guarding, and no masses palpated. Bowel sounds are normal. EXTREMITIES: no cyanosis or clubbing. Dressing over right shoulder; Swelling of the right arm; Decreased ROM in Right due to Pain NEURO: Alert and oriented x 3. No acute neurological deficits. Speech is normal and follows commands. SKIN: Dry and warm Triage Information Reviewed: Yes Vital Signs On Initial Exam: Initial Vitals Temp Pulse Resp BP Pulse Ox 98.4 F 75 20 141/94 95 04/12/19 02:55 04/12/19 02:55 04/12/19 02:55 04/12/19 02:55 04/12/19 02:55 Vital Signs Reviewed: Yes Diagnostics - Vital Signs Vital Signs Temp Pulse Resp BP Pulse Ox 04/12/19 02:55 98.4 F 75 20 141/94 95 - Laboratory Lab Statement: Any lab studies that have been ordered have been reviewed, and results considered in the medical decision making process. Course/Dx - Course Course Of Treatment: 38 year old M presenting to [facility] with a chief complaint of right shoulder pain s/p shoulder surgery on 04/10/19 at [place]. Patient has been taking Tylenol for pain without relief. He states he called to make an appointment with his surgeon on Saturday, but was instructed to come to the Emergency Department if he was unable to manage his pain. Patient is given 10mg compazine and 30mg toradol. Patient reports improved pain. Patient will be discharged home with a prescription for toradol. Patient will follow up with his surgeon on Saturday. - Diagnoses Provider Diagnoses: Right shoulder pain Discharge - Sign-Out/Discharge Documenting (check all that apply): Patient Departure - discharge Patient Received Moderate/Deep Sedation with Procedure: No - Discharge Plan Condition: Stable Disposition: HOME Prescriptions: traMADol TAB* [Ultram*] 50 mg PO Q6HR PRN #14 tab MDD 4 PRN Reason: Pain Patient Education Materials: Shoulder Pain (ED) Referrals: Shad Uriostegui MD [Primary Care Provider] - Additional Instructions: RETURN TO THE EMERGENCY DEPARTMENT FOR CHANGING OR WORSENING SYMPTOMS. - Attestation Statements Document Initiated by Scribe: Yes Documenting Scribe: Priscila Hallman Provider For Whom Aroldoibjordy is Documenting (Include Credential): Mabel Patel MD Scribe Attestation: Priscila Weinberg scribed for Mabel Patel MD on 04/12/19 at 0417. Status of Scribe Document: Ready
[2019-04-12] MEDS ORDERED: Morphine 4 MG/ML VIAL (1 ml) 4 MG/ML VIAL IM ONE (03:18)
[2019-04-12] MEDS ORDERED: PROCHLORPERAZINE INJ 5 MG/ML 2 ML VIAL IM ONE ×2 (03:18)
[2019-04-12] MEDS ORDERED: Ketorolac INJ* 30 MG/ML 1 ML VIAL ONE ×2 (03:30)
[2019-04-12] MEDS: Ketorolac INJ* 30 MG/ML 1 ML VIAL IM ONE ×2 (03:30→03:31)
[2019-04-12 04:14] VITALS: BP 0/0
== END 2019-04-12 04:13 | disposition home or self-care (01) ==
LOC: ED 02:52
DX: M25.511 Pain in right shoulder (principal); Z98.890 Other specified postprocedural states; Z88.5 Allergy status to narcotic agent; Z88.0 Allergy status to penicillin; Z88.2 Allergy status to sulfonamides; Z88.8 Allergy status to other drugs, medicaments and biological substances; Z88.1 Allergy status to other antibiotic agents; Z91.041 Radiographic dye allergy status; Z87.891 Personal history of nicotine dependence
CPT/HCPCS: 96372; 99282; J0780; J1885; J2270

== ENCOUNTER 2019-04-12 14:13 | Emergency (ER) | payer MEDICAID ==
[2019-04-12 14:21] VITALS: BP 138/94
--- NOTE | 2019-04-12 14:43 | UC ---
Respiratory Complaint HPI - HPI Summary HPI Summary: Pt had shoulder surgery on Saturday (04/10/19) and did well. last pm went to ER for shot Toradol for pain. is feeling well except for some chest congestion and prod cough which he has had since Saturday. no worsening cough or SOB, no CP, used his albuterol inhaler and feels it helped. He is mostly worried that he doesn't know the med he got last night and may be having a reaction. denies rash - History of Current Complaint Chief Complaint: UCRespiratory Stated Complaint: RESP Time Seen by Provider: 04/12/19 14:21 Hx Obtained From: Patient Onset/Duration: Gradual Onset Severity Initially: Moderate Severity Currently: Moderate Pain Intensity: 5 Character: Cough: Productive - "small amount white mucous" Aggravating Factors: Nothing Alleviating Factors: Bronchodilator Associated Signs And Symptoms: Positive: Negative, Nasal Congestion. Negative: Dyspnea, Fever, Chills, Hemoptysis - Allergies/Home Medications Allergies/Adverse Reactions: Allergies Allergy/AdvReac Type Severity Reaction Status Date / Time albuterol [From Ventolin HFA] Allergy Difficulty Verified 04/12/19 14:22 Breathing bupropion Allergy Difficulty Verified 04/12/19 14:22 Breathing cephalexin Allergy Rash Verified 04/12/19 14:22 citalopram [From Celexa] Allergy See Comment Verified 04/12/19 14:22 codeine Allergy Difficulty Verified 04/12/19 14:22 Breathing doxycycline Allergy Rash Verified 04/12/19 14:22 escitalopram [From Lexapro] Allergy See Comment Verified 04/12/19 14:22 famotidine Allergy Rash Verified 04/12/19 14:22 fluticasone Allergy Difficulty Verified 04/12/19 14:22 [From Advair Diskus] Breathing Iodinated Contrast- Oral and Allergy Itching Verified 04/12/19 14:22 IV Dye moxifloxacin Allergy Hives Verified 04/12/19 14:22 omeprazole [From Prilosec] Allergy Rash Verified 04/12/19 14:22 Penicillins Allergy Rash Verified 04/12/19 14:22 Quinolones Allergy Rash Verified 04/12/19 14:22 salmeterol Allergy Difficulty Verified 04/12/19 14:22 [From Advair Diskus] Breathing sertraline [From Zoloft] Allergy Hallucinati Verified 04/12/19 14:22 ons sulfamethoxazole Allergy Rash Verified 04/12/19 14:22 [From Bactrim] trimethoprim [From Bactrim] Allergy Rash Verified 04/12/19 14:22 Home Medications: Home Medications Ibuprofen 600 mg PO 04/12/19 [History] PMH/Surg Hx/FS Hx/Imm Hx Previously Healthy: Yes Endocrine History: Hypothyroidism Cardiovascular History: Hypertension Respiratory History: Asthma Psychological History: Anxiety Other History Of: Negative For: HIV, Hepatitis B, Hepatitis C, Anticoagulant Therapy - Surgical History Surgical History: Yes Surgery Procedure, Year, and Place: RIGHT ELBOW RECONSTRUCTION SURGERY 1983,. SLEEP APNEA SURGERY 2010 - Tonsilectomy, uvula, stretching throat. CHOLECYSTECTOMY - 09/10/16, deviated septum. carpal tunnel 2017. cicumcision with biopsy. Nasal septum surgery 03/20/2019. rt shoulder surgery-bone spurs removed and bursitis - Family History Known Family History: Positive: Cardiac Disease - two uncles in their 40s, no primary relatives, Hypertension, Diabetes, Other - TIA on paternal side, cancer on both sides, blood clots, asthma Family History: FHx of seasonal allergies - both parents. TIA on paternal side, cancer on both sides, blood clots - Social History Occupation: Unemployed Lives: Alone Alcohol Use: None Substance Use Type: None Substance Use Comment - Amount & Last Used: benzo's in the past Smoking Status (MU): Former Smoker Type: Cigarettes Amount Used/How Often: 1/2 ppd Length of Time of Smoking/Using Tobacco: 15 yrs Have You Smoked in the Last Year: No When Did the Patient Quit Smoking/Using Tobacco: 2016 Household Exposure Type: Cigarettes - Immunization History Most Recent Influenza Vaccination: fall 2015 Most Recent Tetanus Shot: utd Most Recent Pneumonia Vaccination: fall 2015 Review of Systems All Other Systems Reviewed And Are Negative: Yes Constitutional: Positive: Negative. Negative: Fever, Chills Skin: Positive: Negative. Negative: Rash Respiratory: Positive: Cough Cardiovascular: Positive: Negative. Negative: Palpitations, Chest Pain Gastrointestinal: Positive: Negative. Negative: Abdominal Pain, Nausea Neurological: Positive: Negative. Negative: Headache Is Patient Immunocompromised?: No Physical Exam Triage Information Reviewed: Yes Appearance: Well-Appearing, No Pain Distress, Obese Vital Signs: Initial Vital Signs Temp 98.4 F 04/12/19 14:17 Pulse 105 04/12/19 14:17 Resp 18 04/12/19 14:17 BP 138/94 04/12/19 14:17 Pulse Ox 99 04/12/19 14:17 Vital Signs Reviewed: Yes Respiratory Exam: Normal Respiratory: Positive: Lungs clear, Other: - no cough heard during exam Cardiovascular Exam: Normal Cardiovascular: Positive: RRR, Brisk Capillary Refill - bilateral distal fingers Neurological Exam: Normal Neurological: Positive: Alert Psychological Exam: Normal Skin Exam: Normal Skin: Negative: Rashes Respiratory Course/Dx - Differential Dx/Diagnosis Differential Diagnosis/HQI/PQRI: Asthma, Bronchitis, Lower Resp Infection, Pulmonary Embolism Provider Diagnosis: Cough, Asthma Discharge - Sign-Out/Discharge Documenting (check all that apply): Patient Departure All imaging exams completed and their final reports reviewed: No Studies - Discharge Plan Condition: Good Disposition: HOME Patient Education Materials: Asthma (ED) Referrals: Shad Uriostegui MD [Primary Care Provider] - 2 Days (if no better) Additional Instructions: rest and drink plenty of fluids be sure to use your prescribed inhalers as directed report to ER if you experience shortness of breath or chest pain - Billing Disposition and Condition Condition: GOOD Disposition: Home
== END 2019-04-12 14:54 | disposition home or self-care (01) ==
LOC: UCEAST 14:13
DX: R05 Cough (principal); J45.909 Unspecified asthma, uncomplicated; Z87.891 Personal history of nicotine dependence; I10 Essential (primary) hypertension; Z87.39 Personal history of other diseases of the musculoskeletal system and connective tissue; Z98.890 Other specified postprocedural states; Z88.5 Allergy status to narcotic agent; Z88.8 Allergy status to other drugs, medicaments and biological substances; Z88.0 Allergy status to penicillin; Z88.1 Allergy status to other antibiotic agents
CPT/HCPCS: 99212; G0463

== ENCOUNTER 2019-04-20 20:42 | Emergency (ER) | payer MEDICAID ==
[2019-04-20 20:55] VITALS: BP 137/95
--- NOTE | 2019-04-20 21:50 | UC ---
Respiratory Complaint HPI - HPI Summary HPI Summary: 38 yo male asthmatic with productive cough x 2 weeks no fever using rescue inhaler had shoulder surgery recently and in sling no cp - History of Current Complaint Chief Complaint: UCRespiratory Stated Complaint: CHEST CONGESTION Time Seen by Provider: 04/20/19 21:34 Hx Obtained From: Patient Onset/Duration: Gradual Onset, Lasting Weeks Timing: Constant Severity Initially: Mild Severity Currently: Moderate Pain Intensity: 4 Pain Scale Used: 0-10 Numeric Character: Cough: Productive Aggravating Factors: Nothing Alleviating Factors: Bronchodilator Associated Signs And Symptoms: Positive: Wheezing Related History: Similar Episode/Dx as: - bronchitis - Allergies/Home Medications Allergies/Adverse Reactions: Allergies Allergy/AdvReac Type Severity Reaction Status Date / Time albuterol [From Ventolin HFA] Allergy Difficulty Verified 04/20/19 20:56 Breathing bupropion Allergy Difficulty Verified 04/20/19 20:56 Breathing cephalexin Allergy Rash Verified 04/20/19 20:56 citalopram [From Celexa] Allergy See Comment Verified 04/20/19 20:56 codeine Allergy Difficulty Verified 04/20/19 20:56 Breathing doxycycline Allergy Rash Verified 04/20/19 20:56 escitalopram [From Lexapro] Allergy See Comment Verified 04/20/19 20:56 famotidine Allergy Rash Verified 04/20/19 20:56 fluticasone Allergy Difficulty Verified 04/20/19 20:56 [From Advair Diskus] Breathing Iodinated Contrast- Oral and Allergy Itching Verified 04/20/19 20:56 IV Dye moxifloxacin Allergy Hives Verified 04/20/19 20:56 omeprazole [From Prilosec] Allergy Rash Verified 04/20/19 20:56 Penicillins Allergy Rash Verified 04/20/19 20:56 Quinolones Allergy Rash Verified 04/20/19 20:56 salmeterol Allergy Difficulty Verified 04/20/19 20:56 [From Advair Diskus] Breathing sertraline [From Zoloft] Allergy Hallucinati Verified 04/20/19 20:56 ons sulfamethoxazole Allergy Rash Verified 04/20/19 20:56 [From Bactrim] trimethoprim [From Bactrim] Allergy Rash Verified 04/20/19 20:56 Home Medications: Home Medications Levothyroxine TAB* [Synthroid 137 MCG TAB*] 137 mcg PO DAILY 04/20/19 [History Confirmed 04/20/19] PMH/Surg Hx/FS Hx/Imm Hx Previously Healthy: Yes Endocrine History: Dyslipidemia Cardiovascular History: Hypertension Respiratory History: Asthma Other History Of: Negative For: HIV, Hepatitis B, Hepatitis C, Anticoagulant Therapy - Surgical History Surgical History: Yes Surgery Procedure, Year, and Place: RIGHT ELBOW RECONSTRUCTION SURGERY 1983,. SLEEP APNEA SURGERY 2010 - Tonsilectomy, uvula, stretching throat. CHOLECYSTECTOMY - 09/10/16, deviated septum. carpal tunnel 2017. cicumcision with biopsy. Nasal septum surgery 03/20/2019. rt shoulder surgery-bone spurs removed and bursitis - Family History Known Family History: Positive: Cardiac Disease - two uncles in their 40s, no primary relatives, Hypertension, Diabetes, Other - TIA on paternal side, cancer on both sides, blood clots, asthma Family History: FHx of seasonal allergies - both parents. TIA on paternal side, cancer on both sides, blood clots - Social History Alcohol Use: None Substance Use Type: None Substance Use Comment - Amount & Last Used: benzo's in the past Smoking Status (MU): Former Smoker Type: Cigarettes Amount Used/How Often: 1/2 ppd Length of Time of Smoking/Using Tobacco: 15 yrs Have You Smoked in the Last Year: No When Did the Patient Quit Smoking/Using Tobacco: 2016 Household Exposure Type: Cigarettes - Immunization History Most Recent Influenza Vaccination: fall 2015 Most Recent Tetanus Shot: utd Most Recent Pneumonia Vaccination: fall 2015 Review of Systems All Other Systems Reviewed And Are Negative: Yes Constitutional: Positive: Negative Skin: Positive: Negative Eyes: Positive: Negative ENT: Positive: Negative Respiratory: Positive: Cough Cardiovascular: Positive: Negative Gastrointestinal: Positive: Negative Genitourinary: Positive: Negative Motor: Positive: Negative Neurovascular: Positive: Negative Musculoskeletal: Positive: Negative Neurological: Positive: Negative Psychological: Positive: Negative Physical Exam Triage Information Reviewed: Yes Appearance: Well-Appearing, No Pain Distress, Well-Nourished Vital Signs: Initial Vital Signs Temp 97.9 F 04/20/19 20:48 Pulse 105 04/20/19 20:48 Resp 18 04/20/19 20:48 BP 137/95 04/20/19 20:48 Pulse Ox 98 04/20/19 20:48 Vital Signs Reviewed: Yes Eyes: Positive: Conjunctiva Clear ENT: Positive: Hearing grossly normal, TMs normal, Uvula midline. Negative: Nasal congestion, Nasal drainage, Trismus, Muffled voice, Hoarse voice, Dental tenderness, Sinus tenderness Neck: Positive: Supple, Nontender, No Lymphadenopathy Cardiovascular: Positive: RRR, No Murmur, Pulses Normal Musculoskeletal: Positive: ROM Intact, No Edema Neurological: Positive: Alert Psychological Exam: Normal Skin Exam: Normal Respiratory Course/Dx - Differential Dx/Diagnosis Provider Diagnosis: Acute bronchitis Discharge - Sign-Out/Discharge Documenting (check all that apply): Patient Departure All imaging exams completed and their final reports reviewed: No Studies - Discharge Plan Condition: Stable Disposition: HOME Prescriptions: Clarithromycin TAB* [Biaxin 500 MG TAB*] 500 mg PO BID #14 tab Patient Education Materials: Acute Bronchitis (ED) Referrals: Shad Uriostegui MD [Primary Care Provider] - 1 Week Additional Instructions: don't take lipitor while on antibiotic use your inhalers as directed - Billing Disposition and Condition Condition: STABLE Disposition: Home
== END 2019-04-20 21:57 | disposition home or self-care (01) ==
LOC: UCEAST 20:42
DX: J20.9 Acute bronchitis, unspecified (principal); J45.909 Unspecified asthma, uncomplicated; I10 Essential (primary) hypertension; Z87.891 Personal history of nicotine dependence; Z88.8 Allergy status to other drugs, medicaments and biological substances
CPT/HCPCS: 99212; G0463

== ENCOUNTER 2019-04-27 01:17 | Emergency (ER) | payer MEDICAID, OTHER ==
[2019-04-27] MEDS ORDERED: Albuterol/Ipratropium NEB.SOL* Albuterol 2.5 MG/Ipratropium 0.5 MG 3 ML INH ONE (01:33)
[2019-04-27] MEDS ORDERED: predniSONE TAB* 20 MG PO ONE (01:35)
--- NOTE | 2019-04-27 01:47 | ED ---
Shortness of Breath - HPI Summary HPI Summary: This patient is a 38 year old M [facility] with a chief complaint of SOB since a week ago. Patient also has diffuse abdominal pain, productive cough, and vomiting 1x. Patient states he used his inhaler which made his symptoms worse. Patient denies swelling of legs and CP. The patient rates the pain 10/10 in severity. Symptoms aggravated by inhaler use. Symptoms alleviated by nothing. - History of Current Complaint Chief Complaint: EDShortnessOfBreath Time Seen by Provider: 04/27/19 01:28 Hx Obtained From: Patient Onset/Duration: Lasting Weeks - 1 week, Still Present Aggravating Factors: Other - Inhaler use Alleviating Factors: Nothing Associated Signs & Symptoms: Negative - Edema, CP, Cough (Productive) - Allergy/Home Medications Allergies/Adverse Reactions: Allergies Allergy/AdvReac Type Severity Reaction Status Date / Time albuterol [From Ventolin HFA] Allergy Difficulty Verified 04/20/19 20:56 Breathing bupropion Allergy Difficulty Verified 04/20/19 20:56 Breathing cephalexin Allergy Rash Verified 04/20/19 20:56 citalopram [From Celexa] Allergy See Comment Verified 04/20/19 20:56 codeine Allergy Difficulty Verified 04/20/19 20:56 Breathing doxycycline Allergy Rash Verified 04/20/19 20:56 escitalopram [From Lexapro] Allergy See Comment Verified 04/20/19 20:56 famotidine Allergy Rash Verified 04/20/19 20:56 fluticasone Allergy Difficulty Verified 04/20/19 20:56 [From Advair Diskus] Breathing Iodinated Contrast- Oral and Allergy Itching Verified 04/20/19 20:56 IV Dye moxifloxacin Allergy Hives Verified 04/20/19 20:56 omeprazole [From Prilosec] Allergy Rash Verified 04/20/19 20:56 Penicillins Allergy Rash Verified 04/20/19 20:56 Quinolones Allergy Rash Verified 04/20/19 20:56 salmeterol Allergy Difficulty Verified 04/20/19 20:56 [From Advair Diskus] Breathing sertraline [From Zoloft] Allergy Hallucinati Verified 04/20/19 20:56 ons sulfamethoxazole Allergy Rash Verified 04/20/19 20:56 [From Bactrim] trimethoprim [From Bactrim] Allergy Rash Verified 04/20/19 20:56 PMH/Surg Hx/FS Hx/Imm Hx Endocrine/Hematology History: Reports: Hx Thyroid Disease Denies: Hx Anticoagulant Therapy, Hx Diabetes Cardiovascular History: Reports: Hx Hypertension Denies: Hx Congestive Heart Failure, Hx Deep Vein Thrombosis, Hx Myocardial Infarction, Hx Pacemaker/ICD Respiratory History: Reports: Hx Asthma - ON MEDS, Hx Sleep Apnea - that was cured via surgery, Other Respiratory Problems/Disorders - pneumonia 2x Denies: Hx Chronic Obstructive Pulmonary Disease (COPD), Hx Lung Cancer, Hx Pneumonia, Hx Pulmonary Embolism GI History: Denies: Hx Gall Bladder Disease, Hx Gastrointestinal Bleed, Hx Ulcer, Hx Urosepsis History: Denies: Hx Kidney Stones, Hx Renal Disease Sensory History: Denies: Hx Contacts or Glasses, Hx Hearing Aid Opthamlomology History: Denies: Hx Contacts or Glasses Neurological History: Denies: Hx Dementia, Hx Migraine, Hx Seizures Psychiatric History: Reports: Hx Anxiety, Hx Panic Disorder - TO TAKE MEDICATION PRIOR TO MRI Denies: Hx Depression, Hx Schizophrenia, Hx Bipolar Disorder, Hx Substance Abuse - Surgical History Surgery Procedure, Year, and Place: RIGHT ELBOW RECONSTRUCTION SURGERY 1983,. SLEEP APNEA SURGERY 2010 - Tonsilectomy, uvula, stretching throat. CHOLECYSTECTOMY - 09/10/16, deviated septum. carpal tunnel 2017. cicumcision with biopsy. Nasal septum surgery 03/20/2019. rt shoulder surgery-bone spurs removed and bursitis - Immunization History Date of Tetanus Vaccine: unknown Date of Influenza Vaccine: 07/12/15 Infectious Disease History: No Infectious Disease History: Denies: Hx Clostridium Difficile, Hx Hepatitis, Hx Human Immunodeficiency Virus (HIV), Hx of Known/Suspected MRSA, Hx Shingles, Hx Tuberculosis, Hx Known/ Suspected VRE, Hx Known/Suspected VRSA, History Other Infectious Disease, Traveled Outside the [place] in Last 30 Days - Family History Known Family History: Positive: Cardiac Disease - two uncles in their 40s, no primary relatives, Hypertension, Diabetes, Other - TIA on paternal side, cancer on both sides, blood clots, asthma Family History: FHx of seasonal allergies - both parents. TIA on paternal side, cancer on both sides, blood clots - Social History Alcohol Use: None Hx Substance Use: No Substance Use Type: Reports: None Substance Use Comment - Amount & Last Used: benzo's in the past Hx Tobacco Use: Yes Smoking Status (MU): Former Smoker Type: Cigarettes Amount Used/How Often: 1/2 ppd Length of Time of Smoking/Using Tobacco: 15 yrs Have You Smoked in the Last Year: No Review of Systems Negative: Chest Pain Positive: Shortness Of Breath, Cough Positive: Abdominal Pain, Vomiting Negative: Edema All Other Systems Reviewed And Are Negative: Yes Physical Exam - Summary Physical Exam Summary: Appearance: Well appearing, no pain distress Skin: warm, dry, reflects adequate perfusion Head/face: normal Eyes: EOMI, GABINO ENT: normal Neck: supple, non-tender Respiratory: occasional wheezes bilaterally Cardiovascular: RRR, pulses symmetrical Abdomen: non-tender, soft Musculoskeletal: normal, strength/ROM intact Neuro: normal, sensory motor intact, A&Ox3 Triage Information Reviewed: Yes Vital Signs On Initial Exam: Initial Vitals Temp Pulse Resp BP Pulse Ox 98.3 F 104 18 140/97 97 04/27/19 01:22 04/27/19 01:22 04/27/19 01:22 04/27/19 01:22 04/27/19 01:22 Vital Signs Reviewed: Yes Diagnostics - Vital Signs Vital Signs Temp Pulse Resp BP Pulse Ox 04/27/19 01:22 98.3 F 104 18 140/97 97 - Laboratory Result Diagrams: 04/27/19 01:45 04/27/19 01:45 Lab Statement: Any lab studies that have been ordered have been reviewed, and results considered in the medical decision making process. - Radiology CXR Radiology Interpretation Completed By: ED Physician Summary of Radiographic Findings: No acute processes, pending official radiology report. - EKG 0150 Cardiac Rate: NL - 97 BPM EKG Rhythm: Sinus Rhythm EKG Comparison: No Significant Change Summary of EKG Findings: NSR at 97 BPM, minimal ST elevation similar to previous EKG taken 12/14/2018. Re-Evaluation - Re-Evaluation First Eval Re-Evaluation Time: 03:19 Comment: Discussed results with patient. Pt will be discharged w dx of asthma exacerbation and anxiety. Pt understands and agrees with this plan. Course/Dx - Course Course Of Treatment: This patient is a 38 year old M [facility] with a chief complaint of SOB since a week ago. In the ED course, patient received Duoneb and Deltasone. EKG at 0150 revealed NSR at 97 BPM, minimal ST elevation similar to previous EKG taken 12/14/2018. CXR revealed no acute processes, pending official radiology report. Pt will be discharged w dx of asthma exacerbation and anxiety. Pt understands and agrees with this plan. - Diagnoses Differential Diagnosis/HQI/PQRI: Positive: Asthma, Bronchitis, Pneumonia Provider Diagnoses: Asthma exacerbation, Anxiety Discharge - Sign-Out/Discharge Documenting (check all that apply): Patient Departure - Discharge Patient Received Moderate/Deep Sedation with Procedure: No - Discharge Plan Condition: Stable Disposition: HOME Prescriptions: methylPREDNISolone [Medrol Dosepak 4 MG*] 0 mg PO .SEE SHANT INSTRUCTION #1 tab Patient Education Materials: Asthma (ED), Anxiety (ED) Referrals: Shad Uriostegui MD [Primary Care Provider] - 3 Days Additional Instructions: Follow-up with your primary care provider in three days. RETURN TO THE ER FOR WORSENING OR CHANGING SYMPTOMS. - Billing Disposition and Condition Condition: STABLE Disposition: Home - Attestation Statements Document Initiated by Scribe: Yes Documenting Scribe: Shad Gao Provider For Whom Jean is Documenting (Include Credential): Simba Herndon MD Scribe Attestation: Shad Weinberg, scribed for Simba Herndon MD on 04/27/19 at 0443. Scribe Documentation Reviewed: Yes Provider Attestation: The documentation as recorded by the Shad castillo accurately reflects the service I personally performed and the decisions made by me, Simba Herndon MD Status of Scribe Document: Viewed
[2019-04-27 01:54] LABS: ABS Eosinophils 0.3 10^3/ul (0-0.6); ABS Lymphocytes 2.8 10^3/ul (1.0-4.8); ABS Monocytes 0.7 10^3/ul (0-0.8); ABS Neutrophils 5.5 10^3/ul (1.5-7.7); Eosinophil % 2.8 %; Hematocrit 43 % (42-52); Hemoglobin 14.6 g/dL (14.0-18.0); Lymphocyte % 29.7 %; Mean Corpuscular HGB Conc 34 g/dL (31-36); Mean Corpuscular Hemoglobin 29 pg (27-31); Mean Corpuscular Volume 85 fL (80-94); Mean Platelet Volume 8.4 fL (7.4-10.4); Platelet Count 245 10^3/uL (150-450); Red Blood Count 5.06 10^6 /uL (4.18-5.48); Red Cell Distribution Width 14 % (10-15); White Blood Count 9.3 10^3/uL (3.5-10.8)
[2019-04-27 02:11] LABS: Albumin 4.1 g/dL (3.2-5.2); Albumin/Globulin Ratio 1.3 (1-3); Calcium 9.5 mg/dL (8.6-10.3); Globulin 3.1 g/dL (2-4); Potassium 3.4 mmol/L (3.5-5.0); Total Bilirubin 0.4 mg/dL (0.2-1.0); Total Protein 7.2 g/dL (6.4-8.9)
[2019-04-27 03:29] VITALS: BP 133/78
== END 2019-04-27 03:28 | disposition home or self-care (01) ==
LOC: ED 01:17
DX: J45.901 Unspecified asthma with (acute) exacerbation (principal); F41.9 Anxiety disorder, unspecified; Z88.5 Allergy status to narcotic agent; Z88.0 Allergy status to penicillin; Z88.2 Allergy status to sulfonamides; Z88.8 Allergy status to other drugs, medicaments and biological substances; Z88.1 Allergy status to other antibiotic agents; Z91.041 Radiographic dye allergy status; E07.9 Disorder of thyroid, unspecified; I10 Essential (primary) hypertension; F41.0 Panic disorder [episodic paroxysmal anxiety]; Z79.899 Other long term (current) drug therapy; Z87.891 Personal history of nicotine dependence
CPT/HCPCS: 36415; 71046; 80053; 83690; 83880; 84484; 85025; 93005; 99283; A9270-GY; J7512

== ENCOUNTER 2019-05-06 19:45 | Emergency (ER) | payer OTHER ==
[2019-05-06 19:57] VITALS: BP 146/94
--- NOTE | 2019-05-06 21:05 | UC ---
Knee Pain HPI - History of Current Complaint Chief Complaint: UCGeneralIllness Stated Complaint: SINUS COMPLAINT Time Seen by Provider: 05/06/19 20:54 Pain Intensity: 6 - Allergies/Home Medications Allergies/Adverse Reactions: Allergies Allergy/AdvReac Type Severity Reaction Status Date / Time albuterol [From Ventolin HFA] Allergy Difficulty Verified 05/06/19 19:58 Breathing bupropion Allergy Difficulty Verified 05/06/19 19:58 Breathing cephalexin Allergy Rash Verified 05/06/19 19:58 citalopram [From Celexa] Allergy See Comment Verified 05/06/19 19:58 codeine Allergy Difficulty Verified 05/06/19 19:58 Breathing doxycycline Allergy Rash Verified 05/06/19 19:58 escitalopram [From Lexapro] Allergy See Comment Verified 05/06/19 19:58 famotidine Allergy Rash Verified 05/06/19 19:58 fluticasone Allergy Difficulty Verified 05/06/19 19:58 [From Advair Diskus] Breathing Iodinated Contrast- Oral and Allergy Itching Verified 05/06/19 19:58 IV Dye moxifloxacin Allergy Hives Verified 05/06/19 19:58 omeprazole [From Prilosec] Allergy Rash Verified 05/06/19 19:58 Penicillins Allergy Rash Verified 05/06/19 19:58 Quinolones Allergy Rash Verified 05/06/19 19:58 salmeterol Allergy Difficulty Verified 05/06/19 19:58 [From Advair Diskus] Breathing sertraline [From Zoloft] Allergy Hallucinati Verified 05/06/19 19:58 ons sulfamethoxazole Allergy Rash Verified 05/06/19 19:58 [From Bactrim] trimethoprim [From Bactrim] Allergy Rash Verified 05/06/19 19:58 Home Medications: Home Medications Atorvastatin* [Lipitor*] 40 mg PO 2100 05/06/19 [History Confirmed 05/06/19] PMH/Surg Hx/FS Hx/Imm Hx Other History Of: Negative For: HIV, Hepatitis B, Hepatitis C, Anticoagulant Therapy - Surgical History Surgical History: Yes Surgery Procedure, Year, and Place: RIGHT ELBOW RECONSTRUCTION SURGERY 1983,. SLEEP APNEA SURGERY 2010 - Tonsilectomy, uvula, stretching throat. CHOLECYSTECTOMY - 09/10/16, deviated septum. carpal tunnel 2017. cicumcision with biopsy. Nasal septum surgery 03/20/2019. rt shoulder surgery-bone spurs removed and bursitis 04/10/19 - Family History Known Family History: Positive: Cardiac Disease - two uncles in their 40s, no primary relatives, Hypertension, Diabetes, Other - TIA on paternal side, cancer on both sides, blood clots, asthma Family History: FHx of seasonal allergies - both parents. TIA on paternal side, cancer on both sides, blood clots - Social History Alcohol Use: None Substance Use Type: None Substance Use Comment - Amount & Last Used: benzo's in the past Smoking Status (MU): Former Smoker Type: Cigarettes Amount Used/How Often: 1/2 ppd Length of Time of Smoking/Using Tobacco: 15 yrs Have You Smoked in the Last Year: No When Did the Patient Quit Smoking/Using Tobacco: 2016 Household Exposure Type: Cigarettes - Immunization History Most Recent Influenza Vaccination: fall 2015 Most Recent Tetanus Shot: utd Most Recent Pneumonia Vaccination: fall 2015 Physical Exam Vital Signs: Initial Vital Signs Temp 99.5 F 05/06/19 19:52 Pulse 109 05/06/19 19:52 Resp 24 05/06/19 19:52 BP 146/94 05/06/19 19:52 Pulse Ox 97 05/06/19 19:52 Discharge - Discharge Plan Referrals: Shad Uriostegui MD [Primary Care Provider] -
[2019-05-06] MEDS ORDERED: NS 0.9% 1000 ML** 1,000 ML IV ONE (21:17)
[2019-05-06] MEDS ORDERED: Ondansetron INJ* 2 MG/ML VIAL IV ONE (21:18)
--- NOTE | 2019-05-06 21:22 | UC ---
Abdominal Pain Male HPI - HPI Summary HPI Summary: PATIENT ARRIVES COMPLAINING OF ABOUT 1 MONTH OF COUGH AND MILD CONGESTION WITH SOME SINUS PRESSURE. HAD DEVIATED SEPTUM SURGERY AT THE END OF FEBRUARY AT [facility]. HE ALSO IS COMPLAINING OF 2-3 WEEKS OF UPPER ABDOMINAL/EPIGASTRIC PAIN AND NAUSEA. HE HAS HAD SOME LOOSE STOOLS RECENTLY. HE DENIES FEVER. STATES HE HAS BEEN HYDRATING WELL BUT STILL FEELS VERY THIRSTY. - History of Current Complaint Chief Complaint: UCGeneralIllness Stated Complaint: SINUS COMPLAINT Time Seen by Provider: 05/06/19 20:54 Hx Obtained From: Patient Onset/Duration: Gradual Onset, Lasting Weeks, Still Present Timing: Constant Severity Initially: Moderate Severity Currently: Moderate Pain Intensity: 6 Pain Scale Used: 0-10 Numeric Location: Epigastric Radiates: No Character: Sharp Aggravating Factor(s): Nothing Alleviating Factor(s): Nothing Associated Signs And Symptoms: Positive: Cough, Decreased Appetite, Nausea, Diarrhea. Negative: Diaphoresis, Fever, Back Pain, Vomiting - Allergies/Home Medications Allergies/Adverse Reactions: Allergies Allergy/AdvReac Type Severity Reaction Status Date / Time albuterol [From Ventolin HFA] Allergy Difficulty Verified 05/06/19 19:58 Breathing bupropion Allergy Difficulty Verified 05/06/19 19:58 Breathing cephalexin Allergy Rash Verified 05/06/19 19:58 citalopram [From Celexa] Allergy See Comment Verified 05/06/19 19:58 codeine Allergy Difficulty Verified 05/06/19 19:58 Breathing doxycycline Allergy Rash Verified 05/06/19 19:58 escitalopram [From Lexapro] Allergy See Comment Verified 05/06/19 19:58 famotidine Allergy Rash Verified 05/06/19 19:58 fluticasone Allergy Difficulty Verified 05/06/19 19:58 [From Advair Diskus] Breathing Iodinated Contrast- Oral and Allergy Itching Verified 05/06/19 19:58 IV Dye moxifloxacin Allergy Hives Verified 05/06/19 19:58 omeprazole [From Prilosec] Allergy Rash Verified 05/06/19 19:58 Penicillins Allergy Rash Verified 05/06/19 19:58 Quinolones Allergy Rash Verified 05/06/19 19:58 salmeterol Allergy Difficulty Verified 05/06/19 19:58 [From Advair Diskus] Breathing sertraline [From Zoloft] Allergy Hallucinati Verified 05/06/19 19:58 ons sulfamethoxazole Allergy Rash Verified 05/06/19 19:58 [From Bactrim] trimethoprim [From Bactrim] Allergy Rash Verified 05/06/19 19:58 Home Medications: Home Medications Atorvastatin* [Lipitor*] 40 mg PO 2100 05/06/19 [History Confirmed 05/06/19] PMH/Surg Hx/FS Hx/Imm Hx Endocrine History: Hypothyroidism, Dyslipidemia Cardiovascular History: Hypertension Respiratory History: Asthma Psychological History: Anxiety Other History Of: Negative For: HIV, Hepatitis B, Hepatitis C, Anticoagulant Therapy - Surgical History Surgical History: Yes Surgery Procedure, Year, and Place: RIGHT ELBOW RECONSTRUCTION SURGERY 1983,. SLEEP APNEA SURGERY 2010 - Tonsilectomy, uvula, stretching throat. CHOLECYSTECTOMY - 09/10/16, deviated septum. carpal tunnel 2017. cicumcision with biopsy. Nasal septum surgery 03/20/2019. rt shoulder surgery-bone spurs removed and bursitis 04/10/19 - Family History Known Family History: Positive: Cardiac Disease - two uncles in their 40s, no primary relatives, Hypertension, Diabetes, Other - TIA on paternal side, cancer on both sides, blood clots, asthma Family History: FHx of seasonal allergies - both parents. TIA on paternal side, cancer on both sides, blood clots - Social History Alcohol Use: None Substance Use Type: None Substance Use Comment - Amount & Last Used: benzo's in the past Smoking Status (MU): Former Smoker Type: Cigarettes Amount Used/How Often: 1/2 ppd Length of Time of Smoking/Using Tobacco: 15 yrs Have You Smoked in the Last Year: No When Did the Patient Quit Smoking/Using Tobacco: 2016 Household Exposure Type: Cigarettes - Immunization History Most Recent Influenza Vaccination: fall 2015 Most Recent Tetanus Shot: utd Most Recent Pneumonia Vaccination: fall 2015 Review of Systems All Other Systems Reviewed And Are Negative: Yes Constitutional: Positive: Negative Skin: Positive: Negative ENT: Positive: Nasal Discharge, Sinus Congestion Respiratory: Positive: Cough Cardiovascular: Positive: Negative Gastrointestinal: Positive: Abdominal Pain, Diarrhea, Nausea Physical Exam Triage Information Reviewed: Yes Appearance: Well-Appearing, No Pain Distress, Well-Nourished Vital Signs: Initial Vital Signs Temp 99.5 F 05/06/19 19:52 Pulse 109 05/06/19 19:52 Resp 24 05/06/19 19:52 BP 146/94 05/06/19 19:52 Pulse Ox 97 05/06/19 19:52 Vital Signs Reviewed: Yes Eyes: Positive: Conjunctiva Clear ENT: Positive: Hearing grossly normal, Pharynx normal, TMs normal Neck: Positive: Supple, Nontender, No Lymphadenopathy Respiratory Exam: Normal Cardiovascular: Positive: Tachycardia Abdomen Description: Positive: Soft, Other: - epigastric tenderness. No rebound or rigidity. Negative: CVA Tenderness (R), CVA Tenderness (L), Distended Bowel Sounds: Positive: Present Musculoskeletal: Positive: No Edema Neurological: Positive: Alert Psychological: Positive: Age Appropriate Behavior Skin: Negative: Rashes Abd Pain Male Course/Dx - Course Course Of Treatment: PATIENT'S COUGH AND CONGESTION ARE LIKELY ALLERGICALLY MEDIATED. SX HAVE BEEN GOING ON FOR OVER A MONTH. ADVISED OTC ANTIHISTAMINES AND CONSERVATIVE MANAGEMENT FOR NOW. OF GREATER CONCERN TODAY IS HIS EPIGASTRIC ABDOMINAL PAIN AND NAUSEA. PATIENT IS SLIGHTLY TACHYCARDIC ON PRESENTATION. DISCUSSED CONSERVATIVE MANAGEMENT AT HOME WITH CLEAR LIQUIDS AND NAUSEA MEDICINE HOWEVER PATIENT PREFERS TO BE EVALUATED IN THE ER AT THIS TIME. - Differential Dx/Clinical Impression Provider Diagnosis: Epigastric abdominal pain, Allergic cough - Physician Notification/Consults Discussed Patient Care With: Tj Monahan - TO [facility] [place] [facility] BY JOSEPHINE Time Discussed With Above Provider: 21:25 Instructed by Provider To: Will See In ED Discharge - Sign-Out/Discharge Documenting (check all that apply): Patient Departure All imaging exams completed and their final reports reviewed: No Studies - Discharge Plan Condition: Stable Disposition: HOME-RECOMMEND TO ED Referrals: Shad Uriostegui MD [Primary Care Provider] - - Billing Disposition and Condition Condition: STABLE Disposition: Home-Recommend to ED
== END 2019-05-06 21:45 | disposition home health service (06) ==
LOC: UCEAST 19:45
DX: R05 Cough (principal); R10.13 Epigastric pain; I10 Essential (primary) hypertension; E03.9 Hypothyroidism, unspecified; E78.5 Hyperlipidemia, unspecified; F41.9 Anxiety disorder, unspecified; J45.909 Unspecified asthma, uncomplicated; Z88.0 Allergy status to penicillin; Z88.2 Allergy status to sulfonamides; Z88.5 Allergy status to narcotic agent; Z87.891 Personal history of nicotine dependence
CPT/HCPCS: 96360; 96374; 99213; G0463; J2405

== ENCOUNTER 2019-05-06 21:59 | Emergency (ER) | payer OTHER ==
[2019-05-06 22:39] LABS: ABS Basophils 0.1 10^3/ul (0-0.2); ABS Eosinophils 0.3 10^3/ul (0-0.6); ABS Lymphocytes 2.7 10^3/ul (1.0-4.8); ABS Monocytes 0.9 10^3/ul (0-0.8); ABS Neutrophils 7.4 10^3/ul (1.5-7.7); Eosinophil % 2.9 %; Hematocrit 47 % (42-52); Hemoglobin 15.5 g/dL (14.0-18.0); Lymphocyte % 23.7 %; Mean Corpuscular HGB Conc 33 g/dL (31-36); Mean Corpuscular Hemoglobin 28 pg (27-31); Mean Corpuscular Volume 86 fL (80-94); Platelet Count 255 10^3/uL (150-450); Red Blood Count 5.46 10^6 /uL (4.18-5.48); Red Cell Distribution Width 14 % (10-15); White Blood Count 11.5 10^3/uL (3.5-10.8)
[2019-05-06] MEDS ORDERED: NS 0.9% 1000 ML** 1,000 ML IV ONE (22:41)
[2019-05-06 22:55] LABS: Albumin 4.3 g/dL (3.2-5.2); Albumin/Globulin Ratio 1.2 (1-3); BUN/Creatinine Ratio 13.4 (8-20); C Reactive Protein 21.06 mg/L (<8.01); Calcium 9.9 mg/dL (8.6-10.3); EGFR African American 125.9 (>60); EGFR Non-African American 104.1 (>60); Globulin 3.5 g/dL (2-4); Total Bilirubin 0.6 mg/dL (0.2-1.0); Total Protein 7.8 g/dL (6.4-8.9)
[2019-05-06] MEDS ORDERED: diPHENhydraMINE IV* 50 MG/ML 1 ml VIAL (BENADRYL) IV ONE (23:08)
[2019-05-06 23:10] LABS: Potassium 3.9 mmol/L (3.5-5.0)
--- NOTE | 2019-05-06 23:25 | ED ---
Abdominal Pain/Male - HPI Summary HPI Summary: Patient sent from urgent care to ED for further evaluation of bilateral upper quadrant abdominal pain 2.5 weeks. Associated nausea. Patient states pain is intermittent, not altered with food, at worst 7/10. Current pain 4/10. Denies fever, cough, sore throat, CP, SOB, V/D, change in urine, change in BM, penile or testicular symptoms. Medical history is HTN, HDL. Abdominal surgical history is cholecystectomy. - History of Current Complaint Chief Complaint: EDAbdPain Stated Complaint: ABD PAIN PER EMS Time Seen by Provider: 05/06/19 22:16 Hx Obtained From: Patient Onset/Duration: Gradual Onset, Lasting Weeks Timing: Intermittent, Lasting Hours Severity Initially: Moderate Severity Currently: Mild Pain Intensity: 4 Pain Scale Used: 0-10 Numeric Location: Discrete At: RUQ, Discrete At: LUQ, Epigastric Radiates: No Character: Sharp, Dull, Cramping Aggravating Factor(s): Nothing Alleviating Factor(s): Nothing Associated Signs And Symptoms: Positive: Nausea - Allergies/Home Medications Allergies/Adverse Reactions: Allergies Allergy/AdvReac Type Severity Reaction Status Date / Time albuterol [From Ventolin HFA] Allergy Difficulty Verified 05/06/19 22:13 Breathing bupropion Allergy Difficulty Verified 05/06/19 22:13 Breathing cephalexin Allergy Rash Verified 05/06/19 22:13 citalopram [From Celexa] Allergy See Comment Verified 05/06/19 22:13 codeine Allergy Difficulty Verified 05/06/19 22:13 Breathing doxycycline Allergy Rash Verified 05/06/19 22:13 escitalopram [From Lexapro] Allergy See Comment Verified 05/06/19 22:13 famotidine Allergy Rash Verified 05/06/19 22:13 fluticasone Allergy Difficulty Verified 05/06/19 22:13 [From Advair Diskus] Breathing Iodinated Contrast- Oral and Allergy Itching Verified 05/06/19 22:13 IV Dye moxifloxacin Allergy Hives Verified 05/06/19 22:13 omeprazole [From Prilosec] Allergy Rash Verified 05/06/19 22:13 Penicillins Allergy Rash Verified 05/06/19 22:13 Quinolones Allergy Rash Verified 05/06/19 22:13 salmeterol Allergy Difficulty Verified 05/06/19 22:13 [From Advair Diskus] Breathing sertraline [From Zoloft] Allergy Hallucinati Verified 05/06/19 22:13 ons sulfamethoxazole Allergy Rash Verified 05/06/19 22:13 [From Bactrim] trimethoprim [From Bactrim] Allergy Rash Verified 05/06/19 22:13 PMH/Surg Hx/FS Hx/Imm Hx Endocrine/Hematology History: Reports: Hx Thyroid Disease Denies: Hx Anticoagulant Therapy, Hx Diabetes Cardiovascular History: Reports: Hx Hypertension Denies: Hx Congestive Heart Failure, Hx Deep Vein Thrombosis, Hx Myocardial Infarction, Hx Pacemaker/ICD Respiratory History: Reports: Hx Asthma - ON MEDS, Hx Sleep Apnea - that was cured via surgery, Other Respiratory Problems/Disorders - pneumonia 2x Denies: Hx Chronic Obstructive Pulmonary Disease (COPD), Hx Lung Cancer, Hx Pneumonia, Hx Pulmonary Embolism GI History: Denies: Hx Gall Bladder Disease, Hx Gastrointestinal Bleed, Hx Ulcer, Hx Urosepsis History: Denies: Hx Kidney Stones, Hx Renal Disease Sensory History: Denies: Hx Contacts or Glasses, Hx Hearing Aid Opthamlomology History: Denies: Hx Contacts or Glasses EENT History: Denies: Hx Deafness Neurological History: Denies: Hx Dementia, Hx Migraine, Hx Seizures Psychiatric History: Reports: Hx Anxiety, Hx Panic Disorder - TO TAKE MEDICATION PRIOR TO MRI Denies: Hx Depression, Hx Schizophrenia, Hx Bipolar Disorder, Hx Substance Abuse - Surgical History Surgery Procedure, Year, and Place: RIGHT ELBOW RECONSTRUCTION SURGERY 1983,. SLEEP APNEA SURGERY 2010 - Tonsilectomy, uvula, stretching throat. CHOLECYSTECTOMY - 09/10/16, deviated septum. carpal tunnel 2018. cicumcision with biopsy. Nasal septum surgery 03/20/2019. rt shoulder surgery-bone spurs removed and bursitis 04/10/19 - Immunization History Date of Tetanus Vaccine: unknown Date of Influenza Vaccine: 07/12/15 Infectious Disease History: No Infectious Disease History: Denies: Hx Clostridium Difficile, Hx Hepatitis, Hx Human Immunodeficiency Virus (HIV), Hx of Known/Suspected MRSA, Hx Shingles, Hx Tuberculosis, Hx Known/ Suspected VRE, Hx Known/Suspected VRSA, History Other Infectious Disease, Traveled Outside the [place] in Last 30 Days - Family History Known Family History: Positive: Cardiac Disease - two uncles in their 40s, no primary relatives, Hypertension, Diabetes, Other - TIA on paternal side, cancer on both sides, blood clots, asthma Family History: FHx of seasonal allergies - both parents. TIA on paternal side, cancer on both sides, blood clots - Social History Alcohol Use: None Hx Substance Use: No Substance Use Type: Reports: None Substance Use Comment - Amount & Last Used: benzo's in the past Hx Tobacco Use: Yes Smoking Status (MU): Former Smoker Type: Cigarettes Amount Used/How Often: 1/2 ppd Length of Time of Smoking/Using Tobacco: 15 yrs Have You Smoked in the Last Year: No Review of Systems Constitutional: Negative Eyes: Negative ENT: Negative Cardiovascular: Negative Respiratory: Negative Positive: Abdominal Pain, Nausea Genitourinary: Negative Musculoskeletal: Negative Skin: Negative Neurological: Negative Psychological: Normal All Other Systems Reviewed And Are Negative: Yes Physical Exam - Summary Physical Exam Summary: Moderate tenderness to palpation of bilateral upper quadrants and epigastrium. Area mild tenderness to palpation lower quadrants bilaterally. Triage Information Reviewed: Yes Vital Signs On Initial Exam: Initial Vitals Temp Pulse Resp BP Pulse Ox 98.5 F 104 16 149/91 95 05/06/19 22:00 05/06/19 22:00 05/06/19 22:00 05/06/19 22:00 05/06/19 22:00 Vital Signs Reviewed: Yes Appearance: Positive: Well-Appearing Skin: Positive: Warm Head/Face: Positive: Normal Head/Face Inspection Eyes: Positive: Normal Neck: Positive: Supple Respiratory/Lung Sounds: Positive: Clear to Auscultation Cardiovascular: Positive: Normal Abdomen Description: Positive: Other: Musculoskeletal: Positive: Normal Neurological: Positive: Normal Psychiatric: Positive: Normal AVPU Assessment: Alert - [place] Coma Scale Best Eye Response: 4 - Spontaneous Best Motor Response: 6 - Obeys Commands Best Verbal Response: 5 - Oriented Coma Scale Total: 15 Diagnostics - Vital Signs Vital Signs Temp Pulse Resp BP Pulse Ox 05/06/19 22:07 149/91 05/06/19 22:00 98.5 F 104 16 149/91 95 - Laboratory Lab Results: Lab Results 05/06/19 05/06/19 Range/Units 21:30 21:30 WBC 11.5 H (3.5-10.8) 10^3/uL RBC 5.46 (4.18-5.48) 10^6 /uL Hgb 15.5 (14.0-18.0) g/dL Hct 47 (42-52) % MCV 86 (80-94) fL MCH 28 (27-31) pg MCHC 33 (31-36) g/dL RDW 14 (10-15) % Plt Count 255 (150-450) 10^3/uL MPV 9.0 (7.4-10.4) fL Neut % (Auto) 64.9 % Lymph % (Auto) 23.7 % Curry % (Auto) 7.6 % Eos % (Auto) 2.9 % Baso % (Auto) 0.9 % Absolute Neuts (auto) 7.4 (1.5-7.7) 10^3/ul Absolute Lymphs (auto) 2.7 (1.0-4.8) 10^3/ul Absolute Monos (auto) 0.9 H (0-0.8) 10^3/ul Absolute Eos (auto) 0.3 (0-0.6) 10^3/ul Absolute Basos (auto) 0.1 (0-0.2) 10^3/ul Absolute Nucleated RBC 0.0 10^3/ul Nucleated RBC % 0.0 Sodium 137 (135-145) mmol/L Potassium 3.9 (3.5-5.0) mmol/L Chloride 102 (101-111) mmol/L Carbon Dioxide 24 (22-32) mmol/L Anion Gap 11 (2-11) mmol/L BUN 11 (6-24) mg/dL Creatinine 0.82 (0.67-1.17) mg/dL Est GFR ( Amer) 125.9 (>60) Est GFR (Non-Af Amer) 104.1 (>60) BUN/Creatinine Ratio 13.4 (8-20) Glucose 117 H (70-100) mg/dL Calcium 9.9 (8.6-10.3) mg/dL Total Bilirubin 0.60 (0.2-1.0) mg/dL AST 57 H (13-39) U/L ALT 50 (7-52) U/L Alkaline Phosphatase 118 H (34-104) U/L C-Reactive Protein 21.06 H (<8.01) mg/L Total Protein 7.8 (6.4-8.9) g/dL Albumin 4.3 (3.2-5.2) g/dL Globulin 3.5 (2-4) g/dL Albumin/Globulin Ratio 1.2 (1-3) Lipase 31 (11.0-82.0) U/L Result Diagrams: 05/06/19 21:30 05/06/19 21:30 Lab Statement: Any lab studies that have been ordered have been reviewed, and results considered in the medical decision making process. Abdominal Pain Male Course/Dx - Course Course Of Treatment: Patient sent from urgent care to ED for further evaluation of bilateral upper quadrant abdominal pain 2.5 weeks. Associated nausea. Patient states pain is intermittent, not altered with food, at worst 7/10. Current pain 4/10. Denies fever, cough, sore throat, CP, SOB, V/D, change in urine, change in BM, penile or testicular symptoms. Medical history is HTN, HDL. Abdominal surgical history is cholecystectomy. Vital signs within normal limits. Labs unremarkable. CT abdomen and pelvis positive for fatty infiltration of the liver seen on prior CT. Solitary stable splenic lesion of indeterminate etiology and change from prior CT. Small fat-containing umbilical hernia. Symptoms possibly due to gastritis or acid reflux. Patient allergic to PPIs. Discussed following up with his GI doctor. Patient understands and approves of plan. - Diagnoses Provider Diagnoses: Abdominal pain Discharge - Sign-Out/Discharge Documenting (check all that apply): Patient Departure Patient Received Moderate/Deep Sedation with Procedure: No - Discharge Plan Condition: Stable Disposition: HOME Patient Education Materials: Abdominal Pain (ED) Referrals: Shad Uriostegui MD [Primary Care Provider] - Additional Instructions: Follow-up with your GI doctor for further evaluation of symptoms and splenic lesion. Return to the ED for any new or worsening symptoms. - Billing Disposition and Condition Condition: STABLE Disposition: Home
[2019-05-06 23:44] LABS: Urine Appearance Clear; Urine Bilirubin Negative (Negative); Urine Blood Negative (Negative); Urine Color Straw; Urine Glucose Negative (Negative); Urine Ketones Negative (Negative); Urine Nitrite Negative (Negative); Urine Protein Negative (Negative); Urine Specific Gravity 1.003 (1.010-1.030); Urine Urobilinogen Negative (Negative)
[2019-05-07] MEDS ORDERED: methylPREDNISolone 125 MG* 2 ML VIAL IV ONE (00:42)
[2019-05-07] MEDS ORDERED: Iohexol 300* (CONTRAST) 10 ML SDV IV ONE (00:58)
[2019-05-07 02:35] VITALS: BP 125/81
== END 2019-05-07 02:37 | disposition home or self-care (01) ==
LOC: ED 21:59
DX: R10.10 Upper abdominal pain, unspecified (principal); R11.0 Nausea; Z88.0 Allergy status to penicillin; Z88.2 Allergy status to sulfonamides; I10 Essential (primary) hypertension; Z86.39 Personal history of other endocrine, nutritional and metabolic disease; F41.9 Anxiety disorder, unspecified; Z87.891 Personal history of nicotine dependence
CPT/HCPCS: 36415; 74177; 80053; 81003; 83690; 85025; 86140; 96361; 96374; 96375; 99284; J1200; J2930; Q9967

== ENCOUNTER 2019-06-03 19:52 | Emergency (ER) | payer OTHER ==
--- NOTE | 2019-06-03 20:44 | ED ---
Abdominal Pain/Male - HPI Summary HPI Summary: A 38 y/o male presents to [facility] with a chief complaint of RLQ abdominal pain since yesterday. He denies any back pain but notes that he had some blood in his urine. He reports nausea without vomiting. He notes some constipation but denies dysuria, fevers, chills, CP, SOB, sore throat, runny nose, cough, new swelling on his legs or rashes anywhere. He has been taking Ibuprofen but it has not been alleviating his symptoms. He came to the ED because a provider at [facility] told him to come to the ED today if his symptoms worsened. He says that he took his first Z-pack and was diagnosed with a UTI today. He also says that he is on his last dose of Prednisone for an asthma flare up. - History of Current Complaint Chief Complaint: EDAbdPain Stated Complaint: ABD PAIN PER PT Time Seen by Provider: 06/03/19 20:15 Hx Obtained From: Patient Onset/Duration: Sudden Onset, Lasting Hours, Still Present Timing: Constant Severity Initially: Moderate Severity Currently: Severe Pain Intensity: 10 Pain Scale Used: 0-10 Numeric Location: Discrete At: RLQ Radiates: No Character: Other: - unable to describe Aggravating Factor(s): Nothing Alleviating Factor(s): Nothing Associated Signs And Symptoms: Positive: Urinary Symptoms - blood in urine, UTI , Nausea. Negative: Fever, Cough, Chest Pain, Vomiting, Diarrhea - Allergies/Home Medications Allergies/Adverse Reactions: Allergies Allergy/AdvReac Type Severity Reaction Status Date / Time albuterol [From Ventolin HFA] Allergy Difficulty Verified 05/06/19 22:13 Breathing bupropion Allergy Difficulty Verified 05/06/19 22:13 Breathing cephalexin Allergy Rash Verified 05/06/19 22:13 citalopram [From Celexa] Allergy See Comment Verified 05/06/19 22:13 codeine Allergy Difficulty Verified 05/06/19 22:13 Breathing doxycycline Allergy Rash Verified 05/06/19 22:13 escitalopram [From Lexapro] Allergy See Comment Verified 05/06/19 22:13 famotidine Allergy Rash Verified 05/06/19 22:13 fluticasone Allergy Difficulty Verified 05/06/19 22:13 [From Advair Diskus] Breathing Iodinated Contrast- Oral and Allergy Itching Verified 05/06/19 22:13 IV Dye moxifloxacin Allergy Hives Verified 05/06/19 22:13 omeprazole [From Prilosec] Allergy Rash Verified 05/06/19 22:13 Penicillins Allergy Rash Verified 05/06/19 22:13 Quinolones Allergy Rash Verified 05/06/19 22:13 salmeterol Allergy Difficulty Verified 05/06/19 22:13 [From Advair Diskus] Breathing sertraline [From Zoloft] Allergy Hallucinati Verified 05/06/19 22:13 ons sulfamethoxazole Allergy Rash Verified 05/06/19 22:13 [From Bactrim] trimethoprim [From Bactrim] Allergy Rash Verified 05/06/19 22:13 Home Medications: Home Medications Azithromycin 250 mg PO DAILY 06/03/19 [History Confirmed 06/03/19] PMH/Surg Hx/FS Hx/Imm Hx Endocrine/Hematology History: Reports: Hx Thyroid Disease Denies: Hx Anticoagulant Therapy, Hx Diabetes Cardiovascular History: Reports: Hx Hypertension Denies: Hx Congestive Heart Failure, Hx Deep Vein Thrombosis, Hx Myocardial Infarction, Hx Pacemaker/ICD Respiratory History: Reports: Hx Asthma - ON MEDS, Hx Sleep Apnea - that was cured via surgery, Other Respiratory Problems/Disorders - pneumonia 2x Denies: Hx Chronic Obstructive Pulmonary Disease (COPD), Hx Lung Cancer, Hx Pneumonia, Hx Pulmonary Embolism GI History: Denies: Hx Gall Bladder Disease, Hx Gastrointestinal Bleed, Hx Ulcer, Hx Urosepsis History: Denies: Hx Kidney Stones, Hx Renal Disease Sensory History: Denies: Hx Contacts or Glasses, Hx Deafness, Hx Hearing Aid Opthamlomology History: Denies: Hx Contacts or Glasses Neurological History: Denies: Hx Dementia, Hx Migraine, Hx Seizures Psychiatric History: Reports: Hx Anxiety, Hx Panic Disorder - TO TAKE MEDICATION PRIOR TO MRI Denies: Hx Depression, Hx Schizophrenia, Hx Bipolar Disorder, Hx Substance Abuse - Surgical History Surgery Procedure, Year, and Place: RIGHT ELBOW RECONSTRUCTION SURGERY 1983,. SLEEP APNEA SURGERY 2010 - Tonsilectomy, uvula, stretching throat. CHOLECYSTECTOMY - 09/10/16, deviated septum. carpal tunnel 2018. cicumcision with biopsy. Nasal septum surgery 03/20/2019. rt shoulder surgery-bone spurs removed and bursitis 04/10/19 - Immunization History Date of Tetanus Vaccine: unknown Date of Influenza Vaccine: 07/12/15 Infectious Disease History: No Infectious Disease History: Denies: Hx Clostridium Difficile, Hx Hepatitis, Hx Human Immunodeficiency Virus (HIV), Hx of Known/Suspected MRSA, Hx Shingles, Hx Tuberculosis, Hx Known/ Suspected VRE, Hx Known/Suspected VRSA, History Other Infectious Disease, Traveled Outside the [place] in Last 30 Days - Family History Known Family History: Positive: Cardiac Disease - two uncles in their 40s, no primary relatives, Hypertension, Diabetes, Other - TIA on paternal side, cancer on both sides, blood clots, asthma Family History: FHx of seasonal allergies - both parents. TIA on paternal side, cancer on both sides, blood clots - Social History Alcohol Use: None Hx Substance Use: No Substance Use Type: Reports: None Substance Use Comment - Amount & Last Used: benzo's in the past Hx Tobacco Use: Yes Smoking Status (MU): Former Smoker Type: Cigarettes Amount Used/How Often: 1/2 ppd Length of Time of Smoking/Using Tobacco: 15 yrs Have You Smoked in the Last Year: No Review of Systems Negative: Fever, Chills Negative: Sore Throat Negative: Chest Pain Negative: Shortness Of Breath, Cough Positive: Abdominal Pain, Nausea. Negative: Vomiting, Diarrhea, Other - constipation Negative: dysuria Negative: Myalgia - back pain, Edema Negative: Rash All Other Systems Reviewed And Are Negative: Yes Physical Exam - Summary Physical Exam Summary: Constitutional: Well-developed, Well-nourished, Alert. (-) Distressed Skin: Warm, Dry HENT: Normocephalic; Atraumatic Eyes: Conjunctiva normal Neck: Musculoskeletal ROM normal neck. (-) JVD, (-) Stridor, (-) Tracheal deviation Cardio: Rhythm regular, rate normal, Heart sounds normal; Intact distal pulses; The pedal pulses are 2+ and symmetric. Radial pulses are 2+ and symmetric. (-) Murmur Pulmonary/Chest wall: Effort normal. (-) Respiratory distress, (-) Wheezes, (-) Rales Abd: Soft, (-) tenderness, (-) Distension, (-) Guarding, (-) Rebound Musculoskeletal: (-) Edema Lymph: (-) Cervical adenopathy Neuro: Alert, Oriented x3 Psych: Mood and affect Normal Triage Information Reviewed: Yes Vital Signs On Initial Exam: Initial Vitals Temp Pulse Resp BP Pulse Ox 99 F 97 22 152/100 95 06/03/19 20:00 06/03/19 20:00 06/03/19 20:00 06/03/19 20:00 06/03/19 20:00 Vital Signs Reviewed: Yes Diagnostics - Vital Signs Vital Signs Temp Pulse Resp BP Pulse Ox 06/03/19 20:00 99 F 97 22 152/100 95 - Laboratory Result Diagrams: 06/03/19 22:21 06/03/19 22:21 Lab Statement: Any lab studies that have been ordered have been reviewed, and results considered in the medical decision making process. - CT abdomen/pelvis Summary of CT Findings: 1. No CT findings to correlate with patient's symptomatology. Specifically no appendicitis. 2. Right nephrolithiasis. 3. Moderate hepatic steatosis (14-28% fat fraction). 4. Stable splenic lymphangioma, hemangioma, or hamartoma. No followup imaging. indicated per ACR guidelines. ED physician has reviewed this imaging report. Re-Evaluation - Re-Evaluation First Eval Re-Evaluation Time: 23:42 Change: Unchanged Comment: has mild tenderness on prostate exam, complains of constipation. Abdominal Pain Male Course/Dx - Course Course Of Treatment: A 38 y/o male presents to [facility] with a chief complaint of RLQ abdominal pain since yesterday. The physical exam revealed RLQ tenderness. CT abdomen/pelvis impression: 1. No CT findings to correlate with patient's symptomatology. Specifically no appendicitis. 2. Right nephrolithiasis. 3. Moderate hepatic steatosis (14-28% fat fraction). 4. Stable splenic lymphangioma, hemangioma, or hamartoma. No followup imaging. indicated per ACR guidelines. Blood work, chemistries and urines obtained. Urine blood 2+, trace Ur leukocyte esterase, Urine WBC 1+, Urine RBC 3+. Upon re-eval he has mild tenderness on prostate exam, complains of constipation. In the ED course the patient was given Toradol IV, Macrodantin PO, Magnesium Citrate PO and Monurol PO. Discussed case with Dr. Patel who recommended discharge. The patient will be discharged with prescriptions for Macrobid and Miralax and follow up with Dr. Patel and his PCP. THe patient is agreeable with this plan. - Diagnoses Provider Diagnoses: Constipation, Cystitis - Provider Notifications Discussed Care Of Patient With: Andrea Patel Time Discussed With Above Provider: 23:53 Instructed by Provider To: Other Discharge - Sign-Out/Discharge Documenting (check all that apply): Patient Departure - DC Patient Received Moderate/Deep Sedation with Procedure: No - Discharge Plan Condition: Stable Disposition: HOME Prescriptions: Nitrofurantoin Monohyd/M-Cryst [Macrobid 100 mg Capsule] 100 mg PO BID #19 cap Polyethylene Glycol 3350 [Miralax] 17 gm PO BEDTIME #10 [email or web address] Patient Education Materials: Constipation (ED), Urinary Tract Infection in Men (ED) Print Language: CITIZEN OF [place] Referrals: Shad Uriostegui MD [Primary Care Provider] - Andrea Patel MD [Medical Doctor] - - Billing Disposition and Condition Condition: STABLE Disposition: Home - Attestation Statements Document Initiated by Aroldoibe: Yes Documenting Scribe: Renny Ferguson Provider For Whom Scribe is Documenting (Include Credential): Qiana Messina MD Scribe Attestation: Renny Weinberg, scribed for Qiana Leone MD on 06/04/19 at 0643. Scribe Documentation Reviewed: Yes Provider Attestation: The documentation as recorded by the Renny castillo accurately reflects the service I personally performed and the decisions made by , Qiana Leone MD Status of Scribe Document: Viewed
--- OUTSIDE RECORDS SUMMARY | 2019-06-03 20:45 | XMS REPORT | Summary of Care ---
:1980 Author Organization [facility] Address [address] [facility] [place] [address] Care Team Providers Name Role Phone Shad Uriostegui MD Primary Care Provider Reason for Referral Refer to Department Only (Routine) Status Reason Specialty Diagnoses / Referred By Referred To Procedures Contact Contact Pending Review ALLERGY Diagnoses Multiple drug allergies Kym Lincoln MD [address] [place] [address] MRI/CAT/PET Scan (Routine) Status Reason Specialty Diagnoses / Procedures Referred By Referred To Contact Contact Authorized Diagnoses Generalized abdominal pain Cannariato, Procedures US RETROPERITONEAL COMPLETE Kym Villavicencio MD [address] [place] [address] MRI/CAT/PET Scan (Routine) Status Reason Specialty Diagnoses / Referred By Contact Referred To Procedures Contact Authorized Diagnoses Mass of left chest wall Cannariato, Procedures US BREAST LIMITED LEFT Kym Villavicencio MD [address] [place] [address] Reason for Visit Reason Comments Other lump on breast bone seems larger Encounter Details Date Type Department Care Team Description 06/03/2019 Office Visit [facility] [place], Mass of left chest wall ( Primary Dx); Practice Kym Villavicencio MD Generalized abdominal pain; [address] [address] [facility] Hematuria, unspecified type; [place] [address] [place] [address] Acute cystitis with hematuria; [phone] Multiple drug allergies Allergies Active Allergy Reactions Severity Noted Date Comments Advair Diskus Respiratory Reaction 08/30/2016 Moxifloxacin Rash 08/30/2016 Sulfamethoxazole Rash 09/10/2016 W/Trimethoprim Clarithromycin Other 08/15/2017 Pharmacist advised not to take it with Atorvastatin. Cephalexin Monohydrate Rash Low 08/23/2016 Citalopram Other 08/23/2016 Codeine Respiratory Reaction 08/30/2016 Doxy Rash 06/03/2019 Doxycycline Rash 09/26/2016 Per pt report Dye Intravenous Hives 09/21/2017 Itchy, hives Radiographic Imaging Contrast Escitalopram Other 08/23/2016 Famotidine Rash 10/11/2018 Fluticasone Other Low 08/23/2016 Headaches, breathing problems Iodinated Diagnostic Dermatologic Reaction Low 01/17/2018 Agents Keflex Rash 08/30/2016 Lexapro Other 08/30/2016 Suicidal thoughts Morphine Respiratory Reaction 09/21/2017 Pantoprazole Rash 12/02/2017 Penicillins Rash 08/30/2016 Pepcid Complete Rash 08/30/2016 Prednisone SDC TEACHER Reaction 08/23/2016 Prilosec Otc Rash 08/30/2016 Quinolones Rash 08/30/2016 Sertraline SDC TEACHER Reaction, Other High 08/23/2016 Trimethoprim Rash 01/30/2018 Albuterol Sulfate Other 12/07/2016 Not effective Zantac Rash Medium 11/26/2017 Bupropion Respiratory Reaction 08/30/2016 Hives documented as of this encounter (statuses as of 06/03/2019) Medications Medication Sig Dispensed Refills Start Date End Date Status clonazePAM (KLONOPIN) 1 Take 3 mg by 0 Active MG Oral Tab mouth EVERY BEDTIME. diphenhydrAMINE Take 50 mg by 0 Active (BENADRYL) 25 MG Oral mouth EVERY SIX Cap HOURS NEEDED. Calcium Carbonate Take by mouth 0 Active Antacid (TUMS PO) DAILY NEEDED. albuterol HFA (PROAIR Take 2 Puffs by 1 Inhaler 3 05/23/2018 Active HFA) 108 (90 Base) inhalation EVERY MCG/ACT Inhalation Aero FOUR HOURS SolnIndications: Mild NEEDED intermittent asthma (wheezing). with acute exacerbation atorvastatin (LIPITOR) Take 1 Tab by 90 Tab 1 04/07/2019 Active 40 MG Oral mouth DAILY. TabIndications: Mixed hyperlipidemia SALINE NASAL SPRAY NA Gay in nose 0 Active NEEDED. meclizine (ANTIVERT) 25 Take 1 Tab by 90 Tab 0 04/14/2019 Active MG Oral Tab mouth TWO TIMES DAILY NEEDED for dizziness/vertigo . Spacer/Aero Chamber 1 Act by Does not 1 Device 0 04/23/2019 Active Mouthpiece Does not apply route apply Misc NEEDED (use with inhalor, wheezing). levothyroxine Take 1 Tab by 30 Tab 4 04/27/2019 Active (SYNTHROID) 150 MCG mouth BEFORE Oral Tab BREAKFAST. predniSONE (DELTASONE) Take 1 Tab by 27 Tab 0 05/19/2019 Active 20 MG Oral Tab mouth TWICE DAILY. mometasone furoate Take 2 Puffs by 1 Inhaler 5 05/19/2019 Active (ASMANEX 60 METERED inhalation DAILY. DOSES) 220 MCG/INH LOT: [id number] Inhalation AEROSOL EXP: MARCH 27, 2020 POWDER, BREATH (2) ACTIVATED cetirizine (ZYRTEC) 10 Take 1 Tab by 30 Tab 5 05/21/2019 Active MG Oral Tab mouth DAILY. Losartan Potassium 100 TAKE 1 TABLET BY 30 Tab 5 05/26/2019 Active MG Oral Tab MOUTH EVERY DAY mometasone (NASONEX) 50 Gay 1 Gay in 1 Bottle 5 05/29/2019 Active MCG/ACT Nasal nose EVERY TWELVE Suspension HOURS. azithromycin Take 2 pills on 6 Tab 0 06/03/2019 Active (ZITHROMAX) 250 MG Oral the first day and TabIndications: Acute 1 pill each day cystitis with hematuria for 4 days Hospital, Clinic, or Other Ordered Dose Route Frequency Start Date End Date Status Facility Administered Medication ibuprofen (MOTRIN) tablet 600 mg PO Q6 HRS PRN 02/06/2019 Active 600 mg documented as of this encounter (statuses as of 06/03/2019) Active Problems Problem Noted Date Essential hypertension 05/07/2019 Seasonal allergies 05/07/2019 S/P nasal septoplasty 03/20/2019 Trigger middle finger of right hand 07/31/2018 S/P carpal tunnel release 02/10/2018 Carpal tunnel syndrome of right wrist 12/09/2017 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 Family history of early CAD 02/26/2017 Overview: Dad Irritable bowel syndrome with both constipation and diarrhea 11/14/2016 History of tobacco use 10/23/2016 S/P laparoscopic cholecystectomy 10/04/2016 Extreme obesity 08/15/2016 Obstructive sleep apnea 08/15/2016 Overview: S/p UVPP surgery 2011 retest for obstructive sleep apnea normal 2012 Hypothyroidism due to acquired atrophy of thyroid 08/15/2016 Generalized anxiety disorder 08/15/2016 Overview: Therapist [facility] Mild intermittent asthma without complication 08/15/2016 Overview: [facility] 2011 JASWINDER on CPAP Overview: [facility]- CPAP. AHI 35 on 07/23/17 NPSG through [facility] documented as of this encounter (statuses as of 06/03/2019) Resolved Problems Problem Noted Date Resolved Date Problem 03/03/2019 05/07/2019 Right wrist pain 12/09/2017 05/07/2019 Calculus of gallbladder without cholecystitis without 09/10/2016 10/04/2016 obstruction Gallbladder polyp 08/15/2016 10/04/2016 documented as of this encounter (statuses as of 06/03/2019) Immunizations Name Administration Dates Next Due Influenza (IM) Preservative Free 11/06/2018, 07/16/2017, 08/15/2016, 08/16/2015 MMR VACCINE 02/16/2019, 01/12/2019 PNEUMOCOCCAL POLYSACCHARIDE VACCINE 11/06/2016 Pneumococcal Conjugate(13 Valent) 08/15/2016 TDAP Vaccine 12/09/2018 documented as of this encounter Social History Tobacco Use Types Packs/Day Years Used Date Former Smoker Smokeless Tobacco: Never Used Alcohol Use Drinks/Week oz/Week Comments No Alcohol Habits Answer Date Recorded How often do you have a drink containing alcohol? Not asked How many drinks containing alcohol do you have on a typical Not asked day when you are drinking? How often do you have six or more drinks on one occasion? Never 03/11/2019 Sex Assigned at Date Recorded Not on file Job Start Date Occupation Industry Not on file Not on file Not on file Travel History Travel Start Travel End No recent travel history available. documented as of this encounter Last Filed Vital Signs Vital Sign Reading Time Taken Comments Blood Pressure 130/80 06/03/2019 9:01 AM EDT Pulse 96 06/03/2019 9:01 AM EDT Temperature - - Respiratory Rate - - Oxygen Saturation 94% 06/03/2019 9:01 AM EDT Inhaled Oxygen Concentration - - Weight 129.3 kg (285 lb) 06/03/2019 9:01 AM EDT Height 177.8 cm (5' 10") 06/03/2019 9:01 AM EDT Body Mass Index 40.89 06/03/2019 9:01 AM EDT documented in this encounter Patient Instructions Patient InstructionsKym Lincoln MD - 06/03/2019 9:00 AM EDTYou may have a urinary tract infection: The only antibiotic you can take is azithromycin. I sent this in for you. I ordered a renal ultrasound to rule out a renal stone. I odered laboratory tests also. I ordered an ultrasound of chest wall lump. Please go to ER for any worsening pain, especially in the right lower quadrant as this is where yourappendix is. Follow a bland dietElectronically signed by Kym Lincoln MD at 06/03 9:30 AM EDT documented in this encounter Progress Notes Kym Lincoln MD - 06/03/2019 9:00 AM EDT Nursing Notes: Rebekah Street LPN 06/03/2019 9:08 AM Signed Chief Complaint Patient presents with Other lump on breast bone seems larger Primary care provider: Shad Uriostegui Thank you, Kym Lincoln MD 06/03/2019 09:41 Chief Complaint: Be Segovia is a 38-y.o. male who presents for lump on his chest History of Present Illness/ROS: Patient has had a lump on his chest x 2 years, thinks it might be a bit larger. No pain, not red, no drainage. Also reports he came in for abdominal pain: right upper quadrant and epigastric area, radiates to right groin. Denies testicular pain. Started yesterday: comes and goes, mild. It is right upper quadrant and radiates to right lower quadrant and groin. He had similar pain in September, CT was negative for appendicitis. Appetite is up, not down. Not worsened by eating. Mild constipation: Mom helped a little Denies fevers, chills, bloody or black stool, dysuria, hematuria, nausea, vomiting. Has has intermittent constipation, but had 2 episodes of diarrhea after MOM. Review of Systems - General ROS: negative for - chills, fever or weight loss Respiratory ROS: no cough, shortness of breath, or wheezing Cardiovascular ROS: no chest pain or dyspnea on exertion Gastrointestinal ROS: positive for - abdominal pain negative for - appetite loss, blood in stools, melena or nausea/vomiting Genito-Urinary ROS: no dysuria, trouble voiding, or hematuria Past Medical History: Diagnosis Date Anxiety Asthma Disorder of thyroid High cholesterol Hypertension Hypothyroidism JASWINDER on CPAP pt uses a bipap Osteoarthritis Past Surgical History: Procedure Laterality Date ARTHROSCOPY, SHOULDER ACROMIOPLASTY, DISTAL CLAVICLE Right 04/10/2019 Procedure: RIGHT SHOULDER ARTHROSCOPIC SUBACROMIAL DECOMPRESSION ; Surgeon: Percy Funes MD; Location: [facility] MAIN OR CARPAL TUNNEL RELEASE Right CIRCUMCISION EGD N/A 11/26/2017 Procedure: EGD with biopsies; Surgeon: Brianda Fairbanks MD; Location: [facility] MAIN OR ELBOW ARTHROPLASTY NEC Right LAPAROSCOPIC CHOLECYSTECTOMY N/A 09/10/2016 Procedure: LAPAROSCOPIC CHOLECYSTECTOMY; Surgeon: Mars Nicholas MD; Location: [facility] MAIN OR NASAL SINUS OPERATIONS MO RECONSTR NOSE+JIMENEZ SEPTAL REPAIR N/A 03/20/2019 Procedure: SEPTORHINOPLASTY, REDUCTION OF INFERIOR TURBINATES; Surgeon: Zechariah Suggs Jr., MD; Location: [facility] MAIN OR MO REMOVAL GALLBLADDER 2016 MO REVISE MEDIAN N/CARPAL TUNNEL SURG Right 01/15/2018 Procedure: RELEASE CARPAL TUNNEL/RIGHT CARPAL TUNNEL RELEASE; Surgeon: Abelardo Alvarado MD; Location: [facility] MAIN OR TONSILLECTOMY Current Outpatient Medications: albuterol HFA (PROAIR HFA) 108 (90 Base) MCG/ACT Inhalation Aero Soln, Take 2 Puffs by inhalation EVERY FOUR HOURS NEEDED (wheezing)., Disp: 1 Inhaler, Rfl: 3 atorvastatin (LIPITOR) 40 MG Oral Tab, Take 1 Tab by mouth DAILY., Disp : 90 Tab, Rfl: 1 azithromycin (ZITHROMAX) 250 MG Oral Tab, Take 2 pills on the first day and 1 pill each day for 4 days, Disp: 6 Tab, Rfl: 0 Calcium Carbonate Antacid (TUMS PO), Take by mouth DAILY NEEDED., Disp: , Rfl: cetirizine (ZYRTEC) 10 MG Oral Tab, Take 1 Tab by mouth DAILY., Disp: 30 Tab, Rfl: 5 clonazePAM (KLONOPIN) 1 MG Oral Tab, Take 3 mg by mouth EVERY BEDTIME., Disp: , Rfl: diphenhydrAMINE (BENADRYL) 25 MG Oral Cap, Take 50 mg by mouth EVERY SIX HOURS NEEDED., Disp: , Rfl: levothyroxine (SYNTHROID) 150 MCG Oral Tab, Take 1 Tab by mouth BEFORE BREAKFAST., Disp: 30 Tab, Rfl: 4 Losartan Potassium 100 MG Oral Tab, TAKE 1 TABLET BY MOUTH EVERY DAY, Disp: 30 Tab, Rfl: 5 meclizine (ANTIVERT) 25 MG Oral Tab, Take 1 Tab by mouth TWO TIMES DAILY NEEDED for dizziness/vertigo., Disp: 90 Tab, Rfl: 0 mometasone (NASONEX) 50 MCG/ACT Nasal Suspension, Gay 1 Gay in nose EVERY TWELVE HOURS.,Disp: 1 Bottle, Rfl: 5 mometasone furoate (ASMANEX 60 METERED DOSES) 220 MCG/INH Inhalation AEROSOL POWDER, BREATH ACTIVATED, Take 2 Puffs by inhalation DAILY. LOT: [id number] EXP: MARCH 27, 2020 (2), Disp: 1 Inhaler, Rfl: 5 predniSONE (DELTASONE) 20 MG Oral Tab, Take 1 Tab by mouth TWICE DAILY. , Disp: 27 Tab, Rfl: 0 SALINE NASAL SPRAY NA, Gay in nose NEEDED., Disp: , Rfl: Spacer/Aero Chamber Mouthpiece Does not apply Misc, 1 Act by Does not apply route NEEDED (use with inhalor, wheezing)., Disp: 1 Device, Rfl: 0 Current Facility-Administered Medications: ibuprofen (MOTRIN) tablet 600 mg, 600 mg, Oral, Q6H PRN, Abelardo Alvarado MD Allergies Allergen Reactions Sertraline SDC TEACHER Reaction and Other Zantac Rash Advair Diskus Respiratory Reaction Avelox [Moxifloxacin] Rash Bactrim [Sulfamethoxazole W/Trimethoprim] Rash Biaxin [Clarithromycin] Other Pharmacist advised not to take it with Atorvastatin. Citalopram Other Codeine Respiratory Reaction Doxy Rash Doxycycline Rash Per pt report Dye Intravenous Radiographic Imaging Contrast Hives Itchy, hives Escitalopram Other Famotidine Rash Keflex Rash Lexapro Other Suicidal thoughts Morphine Respiratory Reaction Pantoprazole Rash Penicillins Rash Pepcid Complete Rash Prednisone SDC TEACHER Reaction Prilosec Otc Rash Quinolones Rash Trimethoprim Rash Ventolin [Albuterol Sulfate] Other Not effective Zyban [Bupropion] Respiratory Reaction Hives Cephalexin Monohydrate Rash Fluticasone Other Headaches, breathing problems Iodinated Diagnostic Agents Dermatologic Reaction Social History Socioeconomic History Marital status: Single Spouse name: Not on file Number of children: Not on file Years of education: Not on file Highest education level: Not on file Occupational History Not on file Social Needs Financial resource strain: Not on file Food insecurity: Worry: Not on file Inability: Not on file Transportation needs: Medical: Not on file Non-medical: Not on file Tobacco Use Smoking status: Former Smoker Smokeless tobacco: Never Used Substance and Sexual Activity Alcohol use: No Binge frequency: Never Drug use: No Sexual activity: Never Lifestyle Physical activity: Days per week: Not on file Minutes per session: Not on file Stress: Not on file Relationships Social connections: Talks on phone: Not on file Gets together: Not on file Attends advent service: Not on file Active member of club or organization: Not on file Attends meetings of clubs or organizations: Not on file Relationship status: Not on file Intimate partner violence: Fear of current or ex partner: Not on file Emotionally abused: Not on file Physically abused: Not on file Forced sexual activity: Not on file Other Topics Concern Back Care Not Asked Bike Helmet Not Asked Blood Transfusions Not Asked Caffeine Concern Not Asked Exercise No Hobby Hazards Not Asked International Travel Not Asked Service No Occupational Exposure Not Asked Seat Belt Not Asked Self-Exams Not Asked Sleep Concern Not Asked Special Diet No Stress Concern No Weight Concern Yes Comment: would like to 60 lbs Social History Narrative Lives in [place], [place] Lives alone no significant other Never No children 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 Family History Problem Relation Age of Onset Cancer Maternal Aunt stomach Cancer Maternal Grandmother lung Heart Maternal Grandmother PA Cancer Other colon Hypertension Mother Hypertension Father High Cholesterol Father Anesth Problems No family history Arthritis No family history Clotting Disorder No family history Diabetes No family history Heart Disease No family history Kidney Disease No family history Thyroid Disease No family history PHYSICAL EXAMINATION: BP 130/80 (BP Location: Right arm, Patient Position: Sitting) | Pulse 96 | Ht 5' 10" (1.778 m) | Wt 285 lb (129.3 kg) | SpO2 94% | BMI 40.89 kg/m Physical Examination: General appearance - alert, well appearing, and in no distress Mental status - alert, oriented to person, place, and time, normal mood, behavior, speech, dress, motor activity, and thought processes Eyes - pupils equal.sclera anicteric Neck - supple, no cervical or supraclavicular adenopathy, carotids upstroke normal bilaterally, no bruits, thyroid exam: thyroid is normal in size without nodules or tenderness, no neck masses palpated. Chest/Lungs - clear to auscultation, no wheezes, rales or rhonchi, symmetric air entry, good aeration Chest wall: 1.5 cm soft mobile mass medial to left breast, suspect lipoma. Heart - normal rate, regular rhythm, normal S1, S2, no murmurs, rubs, clicks or gallops Abdomen - soft, mildly tender right upper quadrant, right groin, intermittent with palpation in right lower quadrant, mild suprapubic tenderness and mild left lower quadrant tenderness., nondistended, no masses or hepatosplenomegaly, bowel sounds normal, normal to percussion, no guarding or rebound. No pain with walking, jumping. Negative psoas and obturator signs. No costervertebral angle tenderness Neurological - alert, oriented, normal speech, no gross focal findings or movement disorder noted Extremities - dorsalis pedis pulses normal, no pedal edema, no clubbing or cyanosis : normal circumcised male, no testicular pain or lumps, no hernias Urine dip positive for blood and leukoctyes ASSESSMENT/PLAN: ICD-9-CM ICD-10-CM 1. Mass of left chest wall 786.6 R22.2 US BREAST LIMITED LEFT 2. Generalized abdominal pain 789.07 R10.84 CBC WITH DIFFERENTIAL COMPREHENSIVE METABOLIC PANEL LIPASE URINE DIP MANUAL (AMB POCT) US RETROPERITONEAL COMPLETE 3. Hematuria, unspecified type 599.70 R31.9 URINE CULTURE (C&S) 4. Acute cystitis with hematuria 595.0 N30.01 URINE CULTURE (C&S) azithromycin (ZITHROMAX) 250 MG Oral Tab 5. Multiple drug allergies V14.9 Z88.9 REFER TO ALLERGY Do laboratory tests today. Ultrasound ordered for this afternoon Doubt appendicitis, but to to ER for any worsening pain where they can do a CT and treat appendicitis. Follow up with Dr Uriostegui next week. Many antibiotic allergies make treatment of urinary tract infection difficult. He says all he can take is azithromycin. Prescription sent. Refer to allergy for the medication allergies. Patient Instructions You may have a urinary tract infection: The only antibiotic you can take is azithromycin. I sent this in for you. I ordered a renal ultrasound to rule out a renal stone. I odered laboratory tests also. I ordered an ultrasound of chest wall lump. Please go to ER for any worsening pain, especially in the right lower quadrant as this is where yourappendix is. Follow a bland diet Author: Kym Lincoln MD 06/03/2019 09:41 documented in this encounter Plan of Treatment Date Type Specialty Care Team Description 06/03/2019 Ancillary Procedure Radiology 06/05/2019 Office Visit Orthopedics Percy Funes MD [address] [address] 06/08/2019 Ancillary Procedure Radiology 06/09/2019 Office Visit Otorhinolaryngology Zechariah Suggs Jr., MD [address] [place] [address] 07/01/2019 Office Visit Internal Medicine Shad Uriostegui MD [address] [place] [address] [phone] 09/03/2019 Office Visit Pulmonary Sandro Iyer MD [address] [place] [address] [phone] 03/09/2020 Office Visit Cardiology Jeanie Whitt CRNP [address] [address] 04/21/2020 Office Visit Endocrinology Cheri Redmond FNP [address] [facility] [place] [address] Name Type Priority Associated Diagnoses Order Schedule US BREAST LIMITED LEFT Imaging Routine Mass of left chest Expected: 2018, wall Expires: 09/03/2020 CBC WITH DIFFERENTIAL Lab Routine Generalized abdominal Expected: 2018 pain (Approximate), Expires: 06/03/2020 COMPREHENSIVE METABOLIC Lab Routine Generalized abdominal Expected: 2018 PANEL pain (Approximate), Expires: 06/03/2020 LIPASE Lab Routine Generalized abdominal Expected: 06/03/2019 pain (Approximate), Expires: 06/03/2020 URINE CULTURE (C&S) Lab Routine Hematuria, 1 Occurrences unspecified type starting 06/03/2019 Acute cystitis with until 11/30/2019 hematuria US RETROPERITONEAL Imaging Routine Generalized abdominal Expected: 2018, COMPLETE pain Expires: 06/02/2020 Name Type Priority Associated Diagnoses Order Schedule REFER TO ALLERGY Referral Routine Multiple drug allergies Expected: 2018, Expires: 06/03/2020 documented as of this encounter Goals Goal Patient Goal Associated Recent Patient-Stated? Author Type Problems Progress Blood Pressure Blood Pressure 130/80 No Earl, < 140/90 (06/03/2019 NATALIYA Hurst 9:01 AM EDT) Note: This is an individualized treatment (blood pressure) goal for Be Madelaine Segovia: Displayed above (on the left) is your goal for blood pressure control. Your most recent blood pressure is also shown above, on the right. You should try to achieve blood pressures that are lower than your goal listed above (on the left). Weight loss vs. 18 mo Lifestyle 13 (06/03/2019 9:01 AM No Natali Elliott FNP max (lbs) >=10 EDT) Note: This is an individualized lifestyle goal for Be Segovia: Your body mass index (BMI) is more than 30. You should lose weight. A reasonable starting goal is to lose 10 pounds. Displayed above is how many pounds you have lost thus far towards your 10 pound weight loss goal. Take all prescribed medications as Self-management No Natali Elliott FNP directed Note: This is an individualized self-management goal for Be Segovia: Please take all prescribed medications as directed. 1. Do not skip doses. If you cannot afford your medications, talk with your doctor. 2. Use a pill reminder system such as a pill box if needed. Your pharmacist can help you with this. 3. Contact your Pharmacy 5 days before your medication runs out. If you cannot take your medications for any reasons, talk with your doctor. 4. Please bring all of your medication bottles and inhalers (or a list of all your medications/inhalers) with you to every visit. Potential barriers to meeting all of your care plan goals will continue to be addressed on an ongoing basis. documented as of this encounter Procedures Procedure Name Priority Date/Time Associated Diagnosis Comments URINE DIP MANUAL Routine 06/03/2019 9:20 AM Generalized Results for this (AMB POCT) EDT abdominal pain procedure are in the results section. documented in this encounter Results URINE DIP MANUAL (AMB POCT) (06/03/2019 9:20 AM EDT) URINE GLUCOSE (POCT) Negative Negative mg/dl [facility] POCT URINE BILIRUBIN Negative Negative [facility] [place] (POCT) POCT Urine Ketones (POCT) Negative Negative [facility] POCT URINE SPECIFIC 1.010 1.005 - 1.030 [facility] GRAVITY (POCT) POCT URINE BLOOD (POCT) Large (A) Negative [facility] POCT URINE PH (POCT) 6.5 5.0 - 8.0 [facility] POCT URINE PROTEIN (POCT) Negative Negative mg/dl [facility] POCT URINE UROBILINOGEN 0.2 0.2 - 1.0 mg/dl [facility] (POCT) POCT URINE NITRITES Negative Negative [facility] (POCT) POCT URINE LEUKOCYTES Moderate (A) Negative [facility] (POCT) Cells/uL POCT Specimen Urine Performing Organization Address City/State/Zipcode Phone Number [facility] [address] [place] [address] documented in this encounter Visit Diagnoses Diagnosis Mass of left chest wall - Primary Generalized abdominal pain Abdominal pain, generalized Hematuria, unspecified type Acute cystitis with hematuria Acute cystitis Multiple drug allergies Other drug allergy documented in this encounter ([address] [place], [place] (Work) [id number] documented as of this encounter
[2019-06-03 22:28] LABS: ABS Eosinophils 0.2 10^3/ul (0-0.6); ABS Lymphocytes 4.3 10^3/ul (1.0-4.8); ABS Monocytes 1.1 10^3/ul (0-0.8); ABS Neutrophils 8.2 10^3/ul (1.5-7.7); Eosinophil % 1.4 %; Hematocrit 43 % (42-52); Hemoglobin 14.3 g/dL (14.0-18.0); Mean Corpuscular HGB Conc 33 g/dL (31-36); Mean Corpuscular Hemoglobin 29 pg (27-31); Mean Corpuscular Volume 87 fL (80-94); Mean Platelet Volume 8.4 fL (7.4-10.4); Nucleated Red Blood Cells % 0.1; Platelet Count 230 10^3/uL (150-450); Red Blood Count 4.99 10^6 /uL (4.18-5.48); Red Cell Distribution Width 15 % (10-15); White Blood Count 13.8 10^3/uL (3.5-10.8)
[2019-06-03 22:47] LABS: Albumin/Globulin Ratio 1.4 (1-3); BUN/Creatinine Ratio 22.6 (8-20); C Reactive Protein 5.97 mg/L (<8.01); Calcium 9.5 mg/dL (8.6-10.3); EGFR African American 173.9 (>60); EGFR Non-African American 143.7 (>60); Globulin 2.8 g/dL (2-4); Total Bilirubin 0.4 mg/dL (0.2-1.0); Total Protein 6.8 g/dL (6.4-8.9)
[2019-06-03] MEDS ORDERED: Ketorolac INJ* 30 MG/ML 1 ML VIAL IM ONE (23:15)
[2019-06-03 23:24] LABS: Urine Appearance Clear; Urine Bacteria Absent (Absent); Urine Bilirubin Negative (Negative); Urine Blood 2+ (Negative); Urine Color Yellow; Urine Glucose Negative (Negative); Urine Ketones Negative (Negative); Urine Nitrite Negative (Negative); Urine Protein Negative (Negative); Urine Red Blood Cell 3+(>10/hpf) (Absent); Urine Urobilinogen Negative (Negative); Urine White Blood Cell 1+(6-10/hpf) (Absent)
[2019-06-03] MEDS ORDERED: Ketorolac INJ* 30 MG/ML 1 ML VIAL IV PUSH ONE (23:27)
[2019-06-03] MEDS ORDERED: Fosfomycin(NF) 3 GM PAK PO ONE (23:40)
[2019-06-03] MEDS ORDERED: Nitrofurantoin Macrocrystals* 100 MG CAP PO ONE (23:58)
[2019-06-04] MEDS ORDERED: Magnesium CITRATE* 300 ML BTL PO ONE (00:01)
[2019-06-04 00:28] VITALS: BP 130/82
== END 2019-06-04 00:28 | disposition home or self-care (01) ==
LOC: ED 19:52
DX: K59.00 Constipation, unspecified (principal); N30.90 Cystitis, unspecified without hematuria; E07.9 Disorder of thyroid, unspecified; I10 Essential (primary) hypertension; J45.909 Unspecified asthma, uncomplicated; Z79.899 Other long term (current) drug therapy; Z88.5 Allergy status to narcotic agent; Z88.0 Allergy status to penicillin; Z88.2 Allergy status to sulfonamides; Z88.8 Allergy status to other drugs, medicaments and biological substances; Z88.1 Allergy status to other antibiotic agents; Z91.041 Radiographic dye allergy status; Z87.891 Personal history of nicotine dependence
CPT/HCPCS: 36415; 74176; 80053; 81003; 81015; 83605; 83690; 85025; 86140; 87040; 87086; 96372; 96374; 99284; A9270-GY; J1885

== ENCOUNTER 2019-06-07 16:55 | Emergency (ER) | payer OTHER ==
[2019-06-07 17:31] LABS: ABS Basophils 0.1 10^3/ul (0-0.2); ABS Eosinophils 0.3 10^3/ul (0-0.6); ABS Lymphocytes 2.9 10^3/ul (1.0-4.8); ABS Neutrophils 7.7 10^3/ul (1.5-7.7); Eosinophil % 2.4 %; Hematocrit 46 % (42-52); Hemoglobin 15.1 g/dL (14.0-18.0); Lymphocyte % 24.2 %; Mean Corpuscular HGB Conc 33 g/dL (31-36); Mean Corpuscular Hemoglobin 29 pg (27-31); Mean Corpuscular Volume 87 fL (80-94); Mean Platelet Volume 8.2 fL (7.4-10.4); Platelet Count 234 10^3/uL (150-450); Red Blood Count 5.25 10^6 /uL (4.18-5.48); Red Cell Distribution Width 15 % (10-15)
--- NOTE | 2019-06-07 17:34 | ED ---
Abdominal Pain/Male - HPI Summary HPI Summary: This patient is a 38 year old M presenting to [facility] with a chief complaint of worsening right flank pain since 06/05/19. Pt was seen at [facility] on 06/05/19 , and was dx with kidney stones. However he reports pain has only worsened. This was pts first dx of kidney stones. Patient reports fevers. Patient denies chills. Per triage, the patient rates the pain 8/10 in severity. - History of Current Complaint Chief Complaint: EDFlankPain Stated Complaint: KIDNEY STONES IN PAIN PER PT Time Seen by Provider: 06/07/19 17:15 Hx Obtained From: Patient Onset/Duration: Lasting Days, Still Present, Worse Since Timing: Lasting Days Severity Initially: Moderate Severity Currently: Severe Pain Intensity: 8 Pain Scale Used: 0-10 Numeric Location: Flank Aggravating Factor(s): Nothing Alleviating Factor(s): Nothing Associated Signs And Symptoms: Positive: Fever. Negative: Other - chills - Allergies/Home Medications Allergies/Adverse Reactions: Allergies Allergy/AdvReac Type Severity Reaction Status Date / Time albuterol [From Ventolin HFA] Allergy Difficulty Verified 06/07/19 17:01 Breathing bupropion Allergy Difficulty Verified 06/07/19 17:01 Breathing cephalexin Allergy Rash Verified 06/07/19 17:01 citalopram [From Celexa] Allergy See Comment Verified 06/07/19 17:01 codeine Allergy Difficulty Verified 06/07/19 17:01 Breathing doxycycline Allergy Rash Verified 06/07/19 17:01 escitalopram [From Lexapro] Allergy See Comment Verified 06/07/19 17:01 famotidine Allergy Rash Verified 06/07/19 17:01 fluticasone Allergy Difficulty Verified 06/07/19 17:01 [From Advair Diskus] Breathing Iodinated Contrast Media Allergy Itching Verified 06/07/19 17:01 [Iodinated Contrast- Oral and IV Dye] moxifloxacin Allergy Hives Verified 06/07/19 17:01 omeprazole [From Prilosec] Allergy Rash Verified 06/07/19 17:01 Penicillins Allergy Rash Verified 06/07/19 17:01 Quinolones Allergy Rash Verified 06/07/19 17:01 salmeterol Allergy Difficulty Verified 06/07/19 17:01 [From Advair Diskus] Breathing sertraline [From Zoloft] Allergy Hallucinati Verified 06/07/19 17:01 ons sulfamethoxazole Allergy Rash Verified 06/07/19 17:01 [From Bactrim] trimethoprim [From Bactrim] Allergy Rash Verified 06/07/19 17:01 Home Medications: Home Medications Mometasone 220 MCG MDI * [Asmanex 220 MCG MDI *] 1 puff INH DAILY 06/07/19 [ History Confirmed 06/07/19] PMH/Surg Hx/FS Hx/Imm Hx Endocrine/Hematology History: Reports: Hx Thyroid Disease Denies: Hx Anticoagulant Therapy, Hx Diabetes Cardiovascular History: Reports: Hx Hypertension Denies: Hx Congestive Heart Failure, Hx Deep Vein Thrombosis, Hx Myocardial Infarction, Hx Pacemaker/ICD Respiratory History: Reports: Hx Asthma - ON MEDS, Hx Sleep Apnea - that was cured via surgery, Other Respiratory Problems/Disorders - pneumonia 2x Denies: Hx Chronic Obstructive Pulmonary Disease (COPD), Hx Lung Cancer, Hx Pneumonia, Hx Pulmonary Embolism GI History: Denies: Hx Gall Bladder Disease, Hx Gastrointestinal Bleed, Hx Ulcer, Hx Urosepsis History: Denies: Hx Kidney Stones, Hx Renal Disease Sensory History: Denies: Hx Contacts or Glasses, Hx Deafness, Hx Hearing Aid Opthamlomology History: Denies: Hx Contacts or Glasses Neurological History: Denies: Hx Dementia, Hx Migraine, Hx Seizures Psychiatric History: Reports: Hx Anxiety, Hx Panic Disorder - TO TAKE MEDICATION PRIOR TO MRI Denies: Hx Depression, Hx Schizophrenia, Hx Bipolar Disorder, Hx Substance Abuse - Surgical History Surgery Procedure, Year, and Place: RIGHT ELBOW RECONSTRUCTION SURGERY 1983,. SLEEP APNEA SURGERY 2010 - Tonsilectomy, uvula, stretching throat. CHOLECYSTECTOMY - 09/10/16, deviated septum. carpal tunnel 2018. cicumcision with biopsy. Nasal septum surgery 03/20/2019. rt shoulder surgery-bone spurs removed and bursitis 04/10/19 - Immunization History Date of Tetanus Vaccine: unknown Date of Influenza Vaccine: 07/12/15 Infectious Disease History: No Infectious Disease History: Denies: Hx Clostridium Difficile, Hx Hepatitis, Hx Human Immunodeficiency Virus (HIV), Hx of Known/Suspected MRSA, Hx Shingles, Hx Tuberculosis, Hx Known/ Suspected VRE, Hx Known/Suspected VRSA, History Other Infectious Disease, Traveled Outside the [place] in Last 30 Days - Family History Known Family History: Positive: Cardiac Disease - two uncles in their 40s, no primary relatives, Hypertension, Diabetes, Other - TIA on paternal side, cancer on both sides, blood clots, asthma Family History: FHx of seasonal allergies - both parents. TIA on paternal side, cancer on both sides, blood clots - Social History Alcohol Use: None Hx Substance Use: No Substance Use Type: Reports: None Substance Use Comment - Amount & Last Used: benzo's in the past Hx Tobacco Use: Yes Smoking Status (MU): Former Smoker Type: Cigarettes Amount Used/How Often: 1/2 ppd Length of Time of Smoking/Using Tobacco: 15 yrs Have You Smoked in the Last Year: No Review of Systems Positive: Fever. Negative: Chills Positive: Abdominal Pain All Other Systems Reviewed And Are Negative: Yes Physical Exam - Summary Physical Exam Summary: GENERAL: Patient is a well-developed and nourished M who is lying comfortable in the stretcher. Patient is not in any acute respiratory distress. HEAD AND FACE: Normocephalic EYES: PERRLA, EOMI x 2. EARS: Hearing grossly intact. MOUTH: Oropharynx within normal limits. NECK: Supple, trachea is midline, no adenopathy, no JVD, no carotid bruit. CHEST: Symmetric, no tenderness at palpation LUNGS: Clear to auscultation bilaterally. No wheezing or crackles. CVS: Regular rate and rhythm, S1 and S2 present, no murmurs or gallops appreciated. ABDOMEN: Soft, tender to palpation in epigastric region. Bowel sounds are normal. No abnormal abdominal pulsations. EXTREMITIES: Full ROM in all major joints, no edema, no cyanosis or clubbing. NEURO: Alert and oriented x 3. No acute neurological deficits. Speech is normal and follows commands. SKIN: Dry and warm Triage Information Reviewed: Yes Vital Signs On Initial Exam: Initial Vitals Temp Pulse Resp BP Pulse Ox 98.2 F 84 18 131/95 98 06/07/19 16:57 06/07/19 16:57 06/07/19 16:57 06/07/19 16:57 06/07/19 16:57 Vital Signs Reviewed: Yes Diagnostics - Vital Signs Vital Signs Temp Pulse Resp BP Pulse Ox 06/07/19 16:57 98.2 F 84 18 131/95 98 - Laboratory Result Diagrams: 06/07/19 17:25 06/07/19 17:25 Lab Statement: Any lab studies that have been ordered have been reviewed, and results considered in the medical decision making process. Re-Evaluation - Re-Evaluation First Eval Re-Evaluation Time: 18:46 Comment: Discussed plan of care with pt. Abdominal Pain Male Course/Dx - Course Course Of Treatment: This patient is a 38 year old M presenting to [facility] with a chief complaint of worsening right flank pain since 06/05/19. Physical exam findings nml except for tender to palpation in epigastric region. Blood work obtained. WBC is 12.0, and AST is 45. UA obtained. Urine is red. Ur Specific [place] is 1.003, Urine blood is 3+, Ur Leukocycte Esterase is trace, Urine bacteria is 1+. In the ED course the patient was given Toradol, Zofran, and fluids. I discussed results with patient, and he reports feeling better. He is hemodynamically stable and safe for discharge. Strict return precautions given and he will otherwise follow up with his PCP. I Reviewed patients CT scan from 4 days ago, which showed stones in kidney but none were obstructive. The patients UA is similar to previous, except previously there were no red blood cells. Urine culture did not grow bacteria, and pt still has prescription for macrobid and should take it until called with culture result. Pt will follow up with urology. I discussed results with patient, and he reports feeling better. He is hemodynamically stable and safe for discharge. Strict return precautions given and he will otherwise follow up with urologist. Pt will be discharged. - Diagnoses Provider Diagnoses: Hematuria Discharge - Sign-Out/Discharge Documenting (check all that apply): Patient Departure - Discharge Patient Received Moderate/Deep Sedation with Procedure: No - Discharge Plan Condition: Stable Disposition: HOME Patient Education Materials: Hematuria (ED) Referrals: Shad Uriostegui MD [Primary Care Provider] - Terrence Emmanuel MD [Medical Doctor] - 3 Days Additional Instructions: Follow up with urologist in 1-3 days. Pt still has prescription for macrobid and should take it until called with culture result. RETURN TO THE EMERGENCY DEPARTMENT FOR CHANGING OR WORSENING SYMPTOMS. - Billing Disposition and Condition Condition: STABLE Disposition: Home - Attestation Statements Document Initiated by Scribe: Yes Documenting Scribe: Jessika Everton Provider For Whom Scribe is Documenting (Include Credential): Dr. Brenda Meraz MD Scribe Attestation: Jessika Weinberg, scribed for Dr. Brenda Meraz MD on 06/08/19 at 1206. Scribe Documentation Reviewed: Yes Provider Attestation: The documentation as recorded by the [email or web address] spence accurately reflects the service I personally performed and the decisions made by me, Dr. Brenda Meraz MD Status of Scribe Document: Viewed
[2019-06-07] MEDS ORDERED: NS 0.9% 1000 ML** 1,000 ML IV ONE (17:47)
[2019-06-07] MEDS ORDERED: Ketorolac INJ* 30 MG/ML 1 ML VIAL IV PUSH ONE (17:47)
[2019-06-07] MEDS ORDERED: Ondansetron INJ* 2 MG/ML VIAL IV ONE (17:47)
[2019-06-07 17:48] LABS: Albumin 4.3 g/dL (3.2-5.2); Albumin/Globulin Ratio 1.4 (1-3); BUN/Creatinine Ratio 8.6 (8-20); EGFR African American 127.7 (>60); EGFR Non-African American 105.5 (>60); Potassium 3.8 mmol/L (3.5-5.0); Total Bilirubin 0.6 mg/dL (0.2-1.0); Total Protein 7.3 g/dL (6.4-8.9)
[2019-06-07 18:33] LABS: Urine Appearance Clear; Urine Bacteria 1+ (Absent); Urine Bilirubin Negative (Negative); Urine Blood 3+ (Negative); Urine Color Red; Urine Glucose Negative (Negative); Urine Ketones Negative (Negative); Urine Nitrite Negative (Negative); Urine Protein Negative (Negative); Urine Red Blood Cell 3+(>10/hpf) (Absent); Urine Specific Gravity 1.003 (1.010-1.030); Urine Urobilinogen Negative (Negative); Urine White Blood Cell 2+(11-20/hpf) (Absent)
[2019-06-07 18:45] LABS: C Reactive Protein 14.47 mg/L (<8.01)
[2019-06-07 19:41] VITALS: BP 117/95
--- OUTSIDE RECORDS SUMMARY | 2019-06-08 01:26 | XMS REPORT | Summary of Care ---
:1980 Author Organization [facility] Address [address] [address] Care Team Providers Name Role Phone Shad Uriostegui MD Primary Care Provider Reason for Visit Reason Comments Abdominal Pain Encounter Details Date Type Department Care Team Description 06/05/2019 Emergency [facility] Emergency Department Emergency [address] [id number] Allergies Active Allergy Reactions Severity Noted Date [...] Rash 08/30/2016 Pepcid Complete Rash 08/30/2016 Prednisone FIRST LEVELER Reaction 08/23/2016 Prilosec Otc Rash 08/30/2016 Quinolones Rash 08/30/2016 Sertraline FIRST LEVELER Reaction, Other High 08/23/2016 Trimethoprim Rash 01/30/2018 Albuterol Sulfate Other 12/07/2016 Not effective Zantac Rash Medium 11/26/2017 Bupropion Respiratory Reaction 08/30/2016 Hives documented as of this encounter (statuses as of 06/06/2019) Medications Medication Sig Dispensed Refills Start End Date Status Date clonazePAM Take 3 mg by 0 Active (KLONOPIN) 1 MG Oral mouth EVERY Tab BEDTIME. albuterol HFA Take 2 Puffs 1 Inhaler 3 Active (PROAIR HFA) 108 (90 by inhalation 8 Base) MCG/ACT EVERY FOUR Inhalation Aero HOURS SolnIndications: NEEDED Mild intermittent (wheezing). asthma with acute exacerbation atorvastatin Take 1 Tab by 90 Tab 1 Active (LIPITOR) 40 MG Oral mouth DAILY. 9 TabIndications: Mixed hyperlipidemia meclizine (ANTIVERT) Take 1 Tab by 90 Tab 0 Active 25 MG Oral Tab mouth TWO 9 TIMES DAILY NEEDED for dizziness/vert igo. Spacer/Aero Chamber 1 Act by Does 1 Device 0 Active Mouthpiece Does not not apply 9 apply Misc route NEEDED (use with inhalor, wheezing). levothyroxine Take 1 Tab by 30 Tab 4 Active (SYNTHROID) 150 MCG mouth BEFORE 9 Oral Tab BREAKFAST. mometasone furoate Take 2 Puffs 1 Inhaler 5 Active (ASMANEX 60 METERED by inhalation 9 DOSES) 220 MCG/INH DAILY. LOT: Inhalation AEROSOL [id number] POWDER, BREATH EXP: MARCH 272019 (2) cetirizine (ZYRTEC) Take 1 Tab by 30 Tab 5 Active 10 MG Oral Tab mouth DAILY. 9 Losartan Potassium TAKE 1 TABLET 30 Tab 5 Active 100 MG Oral Tab BY MOUTH EVERY 9 DAY fluticasone [place] 2 Sprays 1 Bottle 5 06/02/20 Active (FLONASE) 50 MCG/ACT in nose DAILY. 9 20 Nasal Suspension ondansetron (ZOFRAN Take 1 Tab by 12 Tab 0 06/12/20 Active ODT) 4 MG Oral mouth EVERY 9 19 TABLET DISPERSIBLE EIGHT HOURS NEEDED (nausea and vomiting) for up to 7 days. Tamsulosin HCl Take 1 Cap by 14 Cap 0 06/19/20 Active (FLOMAX) 0.4 MG Oral mouth DAILY 9 19 Cap for 14 days. diphenhydrAMINE Take 50 mg by 0 06/05/20 Discontinued (BENADRYL) 25 MG mouth EVERY 19 (Error) Oral Cap SIX HOURS NEEDED. Calcium Carbonate Take by mouth 0 06/05/20 Discontinued Antacid (TUMS PO) DAILY 19 (Error) NEEDED. SALINE NASAL SPRAY [place] in nose 0 06/05/20 Discontinued NA NEEDED. 19 (Error) predniSONE Take 1 Tab by 27 Tab 0 06/05/20 Discontinued (DELTASONE) 20 MG mouth TWICE 9 19 (Error) Oral Tab DAILY. azithromycin Take 2 pills 6 Tab 0 06/05/20 Discontinued (ZITHROMAX) 250 MG on the first 07 16 (Error) Oral TabIndications: day and 1 pill Acute cystitis with each day for 4 hematuria days Tamsulosin HCl Take 1 Cap by 60 Cap 0 06/05/20 Discontinued (FLOMAX) 0.4 MG Oral mouth DAILY. 9 19 (Reorder) Cap Hospital, Clinic, or Other Ordered Dose Route Frequency Start Date End Date Status Facility Administered Medication ibuprofen (MOTRIN) tablet 600 mg PO Q6 HRS PRN 02/06/2019 Active 600 mg documented as of this encounter (statuses as of 06/06/2019) Active Problems Problem Noted Date Essential hypertension [...] 2011 retest for obstructive sleep apnea normal 2011 Hypothyroidism due to acquired atrophy of thyroid 08/15/2016 Generalized anxiety disorder 08/15/2016 Overview: Therapist [facility] Mild intermittent asthma without complication 08/15/2016 Overview: pfts [facility] 2011 JASWINDER on CPAP Overview: [facility]- CPAP. AHI 35 on 07/23/17 [place] [facility] [place] as of this encounter (statuses as of 06/06/2019) Resolved Problems Problem Noted Date Resolved Date Problem 03/03/2019 05/07/2019 Right wrist pain 12/09/2017 05/07/2019 Calculus of gallbladder without cholecystitis without 09/10/2016 10/04/2016 obstruction Gallbladder polyp 08/15/2016 10/04/2016 documented as of this encounter (statuses as of 06/06/2019) Immunizations Name Administration Dates Next Due Influenza [...] Sign Reading Time Taken Comments Blood Pressure 124/68 06/05/2019 6:00 PM EDT Pulse 73 06/05/2019 6:00 PM EDT Temperature 36.4 06/05/2019 3:41 PM EDT C (97.6 F) Respiratory Rate 18 06/05/2019 6:00 PM EDT Oxygen Saturation 95% 06/05/2019 6:00 PM EDT Inhaled Oxygen Concentration - - Weight - - Height - - Body Mass Index - - documented in this encounter Discharge Instructions Raj Mills PA-C - 06/05/2019Ibuprofen as needed for pain as directed. Max 2400 mg/day Zofran, 1 tablet every 8 hours as needed for nausea and vomiting Flomax, 1 tablet daily Drink plenty of water [place] diet as tolerated: Bananas, rice, apple sauce, toast, chicken broth Strain urine for stone. Bring stone to Urology appointment. Follow-up with Urology Follow-up with PCP Return to the emergency department or call if your symptoms worsen or you have any other concerns: worsening pain, fever, shortness of breath, chest pain documented in this encounter Plan of Treatment Date Type Specialty Care Team Description 06/08/2019 Ancillary Procedure Radiology 06/09/2019 Office Visit Otorhinolaryngology Zechariah Suggs Jr., MD [address] [place] [address] 07/01/2019 Office Visit Internal Medicine Shad Uriostegui MD [address] [place] [address] 07/01/2019 Office Visit Orthopedics Percy Funes MD [address] [address] 09/03/2019 Office Visit Pulmonary Sandro Iyer MD [address] [place] [address] 03/09/2020 Office Visit Cardiology Jeanie Whitt CRNP [address] [address] 04/21/2020 Office Visit Endocrinology Cheri Redmond FNP [address] [facility] [place] [address] documented as of this encounter Goals Goal Patient Goal Associated Recent Patient-Stated? Author Type Problems Progress Blood Pressure Blood Pressure 124/68 No Earl, < 140/90 (06/05/2019 NATALIYA Hurst 6:00 PM EDT) Note: This is an individualized treatment (blood pressure) goal for Be Segovia: Displayed above (on the left) is your goal for blood pressure control. Your most recent blood pressure is also shown above, on the right. You should try to achieve blood pressures that are lower than your goal listed above (on the left). Weight loss vs. 18 mo Lifestyle 15 (06/05/2019 2:22 PM No Natali Elliott FNP max (lbs) >=10 [...] encounter Procedures Procedure Name Priority Date/Time Associated Comments Diagnosis CBC WITH DIFFERENTIAL STAT 06/05/2019 5:26 Results for this PM EDT procedure are in the results section. URINE MICROSCOPIC WITH STAT 06/05/2019 5:26 Results for this REFLEX CULTURE PM EDT procedure are in the results section. URINALYSIS (LAB) WITH STAT 06/05/2019 5:26 Results for this REFLEX CULTURE PM EDT procedure are in the results section. LIPASE STAT 06/05/2019 5:26 Results for this PM EDT procedure are in the results section. COMPREHENSIVE STAT 06/05/2019 5:26 Results for this METABOLIC PANEL PM EDT procedure are in the results section. CT ABDOMEN PELVIS STAT 06/05/2019 5:18 Results for this WITHOUT IV CONTRAST PM EDT procedure are in the results section. documented in this encounter Results URINE MICROSCOPIC WITH REFLEX CULTURE (06/05/2019 5:26 PM EDT) Urine Wbc 0-2 0 - 5 /HPF [facility] Urine Rbc TNTC (A) 0 - 2 /HPF [facility] Urine Epithelial Few None Seen /HPF [facility] Specimen Urine Performing Organization Address [facility] [place] Phone Number [facility] [address] [address] LIPASE (06/05/2019 5:26 PM EDT) Lipase 370 (H) 23 - 300 U/L [facility] Specimen Blood Performing Organization Address [facility] [place] Phone Number [facility] [address] [place] [address] COMPREHENSIVE METABOLIC PANEL (06/05/2019 5:26 PM EDT) Sodium 140 134 - 145 mmol/L [facility] Potassium 3.7 3.5 - 5.1 mmol/L [facility] Chloride 104 98 - 107 mmol/L [facility] CO2 27 22 - 30 mmol/L [facility] Calcium 9.4 8.3 - 10.1 mg/dl [facility] Albumin 4.3 3.5 - 5.0 g/dl [facility] BUN 10 9 - 20 mg/dl [facility] Creatinine 0.7 (L) 0.8 - 1.5 mg/dl [facility] Glucose 83 70 - 99 mg/dl [facility] Total Protein 7.7 6.3 - 8.2 g/dl [facility] Total Bilirubin 0.9 0.0 - 1.1 MG/DL [facility] AST 82 (H) 17 - 59 U/L [facility] ALT 74 (H) 21 - 72 U/L [facility] Alkaline 102 40 - 150 U/L [facility] Phosphatase [facility] eGFR >60 See Interpretation [facility] Comment: Below ml/min/1.73ml GROUP Sq LABORATORY Estimated GFR Interpretation: Above 60ml/min/1.97h0=Pynynx Renal Function 30-59 ml/min/1.49m4=Dgjnr 3 Chronic Kidney Disease 15-29 ml/min/1.13x8=Hcdok 4 Chronic Kidney Disease Less than 15 ml/min/1.41i5=Jwvda 5 Chronic Kidney Disease The GFR value is calculated using the Modification of Diet in Renal Disease ( MDRD) Study Equation which can be found at: https://www.kidney.org/content/prfd-bqwvn-bdipmdbx BUN/Creatinine 14 6 - 22 RATIO [facility] Anion Gap 9 3 - 11 mmol/L [facility] A/G Ratio 1.3 0.8 - 2.0 ratio [facility] Specimen Blood Performing Organization Address City/State/Zipcode Phone Number [facility] [address] [place] [address] [phone] CBC WITH DIFFERENTIAL (06/05/2019 5:26 PM EDT) WBC Count 13.28 (H) 4.23 - 9.07 K/uL [facility] RBC Count 5.41 4.30 - 5.89 M/UL [facility] Hemoglobin 15.5 13.7 - 17.5 g/dL [facility] Hematocrit 47.9 40.1 - 51.0 % [facility] MCV 88.5 79.0 - 92.2 FL [facility] MCH 28.7 25.7 - 32.2 PG [facility] MCHC 32.4 32.3 - 36.5 g/dL [facility] Platelet Count 257 163 - 337 K/uL [facility] MPV 10.2 9.4 - 12.4 FL [facility] RDW 14.6 (H) 11.6 - 14.4 % [facility] Neutrophil % 65.3 34.0 - 67.9 % [facility] Lymphocyte % 22.7 21.8 - 53.1 % [facility] Monocyte % 8.1 5.3 - 12.2 % [facility] Eosinophil % 2.1 0.8 - 7.0 % [facility] Basophil % 0.8 0.2 - 1.2 % [facility] nRBC % 0.0 0.0 - 0.2 % [facility] Neutrophil # 8.66 (H) 1.78 - 5.38 K/UL [facility] Lymphocyte # 3.02 1.32 - 3.57 K/UL [facility] Monocyte # 1.08 (H) 0.30 - 0.82 K/UL [facility] Eosinophil # 0.28 0.04 - 0.54 K/UL [facility] Basophil # 0.11 (H) 0.01 - 0.08 K/UL [facility] Immature Gran % 1.0 (H) 0.0 - 0.4 % [facility] Immature Gran # 0.13 (H) 0.00 - 0.03 K/uL [facility] NRBC # 0.00 0.00 - 0.12 K/uL [facility] Specimen Blood Performing Organization Address [facility] [place] Phone Number [facility] [address] [place] [address] URINALYSIS (LAB) WITH REFLEX CULTURE (06/05/2019 5:26 PM EDT) Urine Color Yellow Yellow [facility] Urine Appearance Cloudy (A) Clear [facility] Urine Glucose Negative Negative mg/dl [facility] Urine Bilirubin Negative Negative [facility] Urine Ketones Negative Negative [facility] Urine Specific 1.014 1.005 - 1.030 [facility] Urine Blood Large (A) Negative [facility] Urine Ph 7.0 5.0 - 8.0 [facility] Urine Protein Negative Negative mg/dl [facility] Urine Urobilinogen 0.2 0.2 - 1.0 [facility] E.U./DL [facility] Urine Nitrite Negative Negative [facility] Urine Leukocytes Trace (A) Negative [facility] Specimen Urine Performing Organization Address [facility] [place] Phone Number [facility] [address] [place] [address] CT ABDOMEN PELVIS WITHOUT IV CONTRAST (06/05/2019 5:18 PM EDT) Specimen Impressions Performed At Mild degree of right-sided hydronephrosis secondary to a 2.7 mm calculus in right proximal ureter at L3-4 level and at least 1 or 2 additional calculi within the right medial ureter at approximately the L4-5 level. Individually measuring 1 to 2 mm. Urgency: IMPORTANT. This report contains IMPORTANT results which require clinical attention. Recommendation: No specific imaging recommendation. Signed by Percy Zhu MD on 06/05/2019 5:44 PM Narrative Performed At Procedure(s): CT ABDOMEN PELVIS WITHOUT IV CONTRAST Date of service: 06/05/2019 5:08 PM Provided clinical information: 38 years, Male, "right flank pain x 3 days, has had nausea" Procedure and materials: Standard protocol. Contrast: None. Comparison studies: CT abdomen pelvis with contrast 10/16/2018 and recent renal ultrasound 06/03/2019 Observations: Lung bases show no focal infiltrates or pleural effusion.. . Noncontrast Liver again shows diffuse low-attenuation with steatosis. Low-attenuation area within spleen again seen similar to previous exam. Pancreas and adrenal show no acute abnormality. Gallbladder shows no obvious calcified gallstones or pericholecystic fluid. There is approximately a 2.7mm calculus in right proximal ureter at approximately the L3-4 vertebral body level with at least 1 0r 2 additional 1 to 2 mm calculi also seen within the right ureter at approximately L4-5 level best seen on sagittal series 5 image #98 and coronal images #71 and #74-75. A mild degree of right-sided hydronephrosis and proximal right hydroureter is noted. No evidence of left-sided hydronephrosis. A few punctate nonobstructing right renal calculi are noted at least 1 punctate nonobstructing left renal calculus is also suspected.. Urinary bladder grossly unremarkable. Noncontrast Bowel shows no definite evidence of obstruction or inflammatory change in the pericecal region or elsewhere. A normal-appearing appendix is identified. No free air , free fluid or significant adenopathy seen in either the abdomen or pelvis. No acute osseous abnormalities are seen. Procedure Note Interface, Rad Results - 06/05/2019 5:46 PM EDT Procedure(s): CT ABDOMEN PELVIS WITHOUT IV CONTRAST Date of service: 06/05/2019 5:08 PM Provided clinical information: 38 years, Male, "right flank pain x 3 days, has had nausea" Procedure and materials: Standard protocol. Contrast: None. Comparison studies: CT abdomen pelvis with contrast 10/16/2018 and recent renal ultrasound 06/03/2019 Observations: Lung bases show no focal infiltrates or pleural effusion.. . Noncontrast Liver again shows diffuse low-attenuation with steatosis. Low-attenuation area within spleen again seen similar to previous exam. Pancreas and adrenal show no acute abnormality. Gallbladder shows no obvious calcified gallstones or pericholecystic fluid. There is approximately a 2.7mm calculus in right proximal ureter at approximately the L3-4 vertebral body level with at least 1 0r 2 additional 1 to 2 mm calculi also seen within the right ureter at approximately L4-5 level best seen on sagittal series 5 image #98 and coronal images #71 and #74-75. A mild degree of right-sided hydronephrosis and proximal right hydroureter is noted. No evidence of left-sided hydronephrosis. A few punctate nonobstructing right renal calculi are noted at least 1 punctate nonobstructing left renal calculus is also suspected.. Urinary bladder grossly unremarkable. Noncontrast Bowel shows no definite evidence of obstruction or inflammatory change in the pericecal region or elsewhere. A normal-appearing appendix is identified. No free air , free fluid or significant adenopathy seen in either the abdomen or pelvis. No acute osseous abnormalities are seen. IMPRESSION Mild degree of right-sided hydronephrosis secondary to a 2.7 mm calculus in right proximal ureter at L3-4 level and at least 1 or 2 additional calculi within the right medial ureter at approximately the L4-5 level. Individually measuring 1 to 2 mm. Urgency: IMPORTANT. This report contains IMPORTANT results which require clinical attention. Recommendation: No specific imaging recommendation. Signed by Percy Zhu MD on 06/05/2019 5:44 PM documented in this encounter Visit Diagnoses Diagnosis Right ureteral stone - Primary Calculus of ureter documented in this encounter Administered Medications Medication Order MAR Action Action Date Dose Rate Site ketorolac (TORADOL) injection 30 Given 06/05/2019 5:28 PM EDT 30 mg mg 30 mg, Intravenous Push, NOW, 1 dose, Sat06/05/19 at 1705 normal saline bolus 1,000 mL New Bag 06/05/2019 5:28 PM EDT 1,000 mL 1,000 mL, Intravenous, BOLUS, 1 dose, 06/05/19 at 1805 ondansetron (ZOFRAN) injection 4 mg Given 06/05/2019 5:28 PM EDT 4 mg 4 mg, Intravenous Push, X1, 1 dose, First dose on Sat06/05/19 at 1805 documented in this encounter (Home) [address] [facility] [employer] [place], [place] (Work) [address] documented as of this encounter
--- OUTSIDE RECORDS SUMMARY | 2019-06-08 01:27 | XMS REPORT | Summary of Care ---
:1980 Author Organization [facility] Address [address] [place] [address] Care Team Providers Name Role Phone Shad Uriostegui MD Primary Care Provider Reason for Visit Reason Comments Follow Up RS SAD POSS RCR 04/10/19, numbness in elbow, ROM Still working on movement. Encounter Details Date Type Department Care Team Description 06/05/2019 Office Visit [facility] Percy Funes MD S/P shoulder surgery [address] (Primary Dx) [place] [phone] [place] [address] Allergies Active Allergy Reactions Severity Noted Date [...] Rash 08/30/2016 Pepcid Complete Rash 08/30/2016 Prednisone RETURNED GOODS RECEIVING CLERK Reaction 08/23/2016 Prilosec Otc Rash 08/30/2016 Quinolones Rash 08/30/2016 Sertraline RETURNED GOODS RECEIVING CLERK Reaction, Other High 08/23/2016 Trimethoprim Rash 01/30/2018 Albuterol Sulfate Other 12/07/2016 Not effective Zantac Rash Medium 11/26/2017 Bupropion Respiratory Reaction 08/30/2016 Hives documented as of this encounter (statuses as of 06/05/2019) Medications Medication Sig Dispensed Refills Start End [...] DOSES) 220 MCG/INH DAILY. LOT: Inhalation AEROSOL [id number] POWDER, BREATH EXP: MARCH 272019 (2) cetirizine (ZYRTEC) Take 1 Tab by 30 Tab 5 Active 10 MG Oral Tab mouth DAILY. 9 Losartan Potassium TAKE 1 TABLET 30 Tab 5 Active 100 MG Oral Tab BY MOUTH EVERY 9 DAY fluticasone [place] 2 Sprays 1 Bottle 5 06/02/20 Active (FLONASE) 50 MCG/ACT in nose DAILY. 9 20 Nasal Suspension diphenhydrAMINE Take 50 mg by 0 06/05/20 Discontinued (BENADRYL) 25 MG mouth EVERY 19 (Error) Oral Cap SIX HOURS NEEDED. Calcium Carbonate Take by mouth 0 06/05/20 Discontinued Antacid (TUMS PO) DAILY 19 (Error) NEEDED. SALINE NASAL SPRAY [place] in nose 0 06/05/20 Discontinued NA NEEDED. 19 (Error) predniSONE Take 1 Tab by 27 Tab 0 06/05/20 Discontinued (DELTASONE) 20 MG mouth TWICE 9 (Error) Oral Tab DAILY. azithromycin Take 2 pills 6 Tab 0 06/05/20 Discontinued (ZITHROMAX) 250 MG on the first 07 16 (Error) Oral TabIndications: day and 1 pill Acute cystitis with each day for 4 hematuria days Hospital, Clinic, or Other Ordered Dose Route Frequency Start Date End Date Status Facility Administered Medication ibuprofen (MOTRIN) tablet 600 mg PO Q6 HRS PRN 02/06/2019 Active 600 mg documented as of this encounter (statuses as of 06/05/2019) Active Problems Problem Noted Date Essential hypertension [...] 08/15/2016 Generalized anxiety disorder 08/15/2016 Overview: Therapist [facility] Mild intermittent asthma without complication 08/15/2016 Overview: pfts [facility] 2012 JASWINDER on CPAP Overview: [facility] Professional Home Care- CPAP. AHI 35 on 07/23/17 NPSG through [facility] [place] documented as of this encounter (statuses as of 06/05/2019) Resolved Problems Problem Noted Date Resolved Date Problem 03/03/2019 05/07/2019 Right wrist pain 12/09/2017 05/07/2019 Calculus of gallbladder without cholecystitis without 09/10/2016 10/04/2016 obstruction Gallbladder polyp 08/15/2016 10/04/2016 documented as of this encounter (statuses as of 06/05/2019) Immunizations Name Administration Dates Next Due Influenza [...] Sign Reading Time Taken Comments Blood Pressure 122/64 06/05/2019 2:22 PM EDT Pulse - - Temperature - - Respiratory Rate - - Oxygen Saturation - - Inhaled Oxygen Concentration - - Weight 128.4 kg (283 lb) 06/05/2019 2:22 PM EDT Height 177.8 cm (5' 10") 06/05/2019 2:22 PM EDT Body Mass Index 40.61 06/05/2019 2:22 PM EDT documented in this encounter Progress Notes Percy Funes MD - 06/05/2019 2:45 PM EDT PATIENT: Be Segovia : 1980 DATE OF SERVICE: 06/05/2019 REFERRING PRACTITIONER: Percy Funes PRIMARY CARE PROVIDER: Shad Uriostegui CHIEF COMPLAINT: Chief Complaint Patient presents with Follow Up RS SAD POSS RCR 04/10/19, numbness in elbow, ROM Still working on movement. HISTORY OF PRESENT ILLNESS: Be Segovia is a 38-y.o. male who returns for a follow up for right shoulder subacromial decompression. 8 weeks out. PHYSICAL EXAM: Incision clean dry and intact Neurovascularly intact IMPRESSION: ICD-9-CM ICD-10-CM 1. S/P shoulder surgery V45.89 Z98.890 PLAN: His right shoulder is doing well. 8 weeks from his subacromial decompression. I went over band andscapular strengthening exercises. He should do these twice a day. Follow-up in 4 to 6 weeks at [facility]. I do not think he needs to go back to therapy to do these exercises. He thinks he can do it himself. I agree. I told him he will continue to improve and sometimes it takes up to a year to get better. Author: Percy Funes MD 06/05/2019 17:07 documented in this encounter Plan of Treatment Date Type Specialty Care Team Description 06/08/2019 Ancillary Procedure Radiology 06/09/2019 Office Visit Otorhinolaryngology Zechariah Suggs Jr., MD [address] [place] [address] 07/01/2019 Office Visit Internal Medicine Shad Uriostegui MD [address] [place] [address] [phone] 07/01/2019 Office Visit Orthopedics Percy Funes MD [address] [place] [address] 09/03/2019 Office Visit Pulmonary Sandro Iyer MD [address] [place] [address] [phone] 03/09/2020 Office Visit Cardiology Jeanie Whitt CRNP [address] [place] [address] 04/21/2020 Office Visit Endocrinology Cheri Redmond, NATALIYA [address] [place] [address] [phone] documented as of this encounter Goals Goal Patient Goal Associated Recent Patient-Stated? Author Type Problems Progress Blood Pressure Blood Pressure 141/71 No Earl, < 140/90 (06/05/2019 NATALIYA Hurst 3:41 PM EDT) Note: This is an individualized [...] ongoing basis. documented as of this encounter Results Not on filedocumented in this encounter Visit Diagnoses Diagnosis S/P shoulder surgery - Primary Other postprocedural status documented in this encounter (Home) [address] [place] [place], [place] (Work) [address] documented as of this encounter
--- OUTSIDE RECORDS SUMMARY | 2019-06-08 01:27 | XMS REPORT | Summary of Care ---
:1980 Author Organization [facility] Address 1 [facility] [place] [address] Care Team Providers Name Role Phone Shad Uriostegui MD Primary Care Provider Reason for Referral Refer to Department Only (Routine) Status Reason Specialty Diagnoses / Referred By Referred To Procedures Contact Contact Pending Review ALLERGY Diagnoses Multiple drug allergies Kym Lincoln MD [address] [place] [address] MRI/CAT/PET Scan (Routine) Status Reason Specialty Diagnoses / Procedures Referred By Referred To Contact Contact Authorized Diagnoses Generalized abdominal pain Cannariato, Procedures US RETROPERITONEAL COMPLETE Kym Villavicencio MD [address] [place] [address] MRI/CAT/PET Scan (Routine) Status Reason Specialty Diagnoses / Referred By Contact Referred To Procedures Contact Authorized Diagnoses Mass of left chest wall Cannariato, Procedures US BREAST LIMITED LEFT Kym Villavicencio MD [address] [place] [address] Reason for Visit Reason Comments Other lump on breast bone seems larger Encounter Details Date Type Department Care Team Description 06/03/2019 Office Visit [facility] [place], Mass of left chest wall ( Primary Dx); Practice Kym Villavicencio MD Generalized abdominal pain; [address] [address] [facility] Hematuria, unspecified type; [place] [address] [place] [address] Acute cystitis with hematuria; [phone] Multiple drug allergies Allergies Active Allergy Reactions [...] Rash 08/30/2016 Pepcid Complete Rash 08/30/2016 Prednisone SUPERVISOR METER REPAIR SHOP Reaction 08/23/2016 Prilosec Otc Rash 08/30/2016 Quinolones Rash 08/30/2016 Sertraline SUPERVISOR METER REPAIR SHOP Reaction, Other High 08/23/2016 Trimethoprim Rash 01/30/2018 [...] TabIndications: Mixed hyperlipidemia SALINE NASAL SPRAY NA [place] in nose 0 Active NEEDED. meclizine (ANTIVERT) [...] METERED inhalation DAILY. DOSES) 220 MCG/INH LOT: [id number] Inhalation AEROSOL EXP: MARCH 27, 2020 POWDER, BREATH (2) ACTIVATED cetirizine (ZYRTEC) 10 Take 1 Tab by 30 Tab 5 05/21/2019 Active MG Oral Tab mouth DAILY. Losartan Potassium 100 TAKE 1 TABLET BY 30 Tab 5 05/26/2019 Active MG Oral Tab MOUTH EVERY DAY mometasone (NASONEX) 50 [place] 1 [place] in 1 Bottle 5 05/29/2019 Active MCG/ACT [...] 08/15/2016 Generalized anxiety disorder 08/15/2016 Overview: Therapist [facility] Mild intermittent asthma without complication 08/15/2016 Overview: [facility] 2011 JASWINDER on CPAP Overview: [facility]- CPAP. AHI 35 on 07/23/17 NPSG through [facility] documented as of this encounter [...] breast bone seems larger Primary care provider: Shda Uriostegui Thank you, Kym Lincoln MD 06/03/2019 [...] DECOMPRESSION ; Surgeon: Percy Funes MD; Location: [facility] MAIN OR CARPAL TUNNEL RELEASE Right CIRCUMCISION EGD N/A 11/26/2017 Procedure: EGD with biopsies; Surgeon: Brianda Fairbanks MD; Location: [facility] MAIN OR ELBOW ARTHROPLASTY NEC Right LAPAROSCOPIC CHOLECYSTECTOMY N/A 09/10/2016 Procedure: LAPAROSCOPIC CHOLECYSTECTOMY; Surgeon: Mars Nicholas MD; Location: [facility] MAIN OR NASAL SINUS OPERATIONS FL RECONSTR NOSE+JIMENEZ SEPTAL REPAIR N/A 03/20/2019 Procedure: SEPTORHINOPLASTY, REDUCTION OF INFERIOR TURBINATES; Surgeon: Zechariah Suggs Jr., MD; Location: [facility] MAIN OR FL REMOVAL GALLBLADDER 2016 [place] REVISE MEDIAN N/CARPAL TUNNEL SURG Right 01/15/2018 [...] 0 mometasone (NASONEX) 50 MCG/ACT Nasal Suspension, [place] 1 [place] in nose EVERY TWELVE HOURS.,Disp: 1 Bottle, Rfl: 5 mometasone furoate (ASMANEX 60 METERED DOSES) 220 MCG/INH Inhalation AEROSOL POWDER, BREATH ACTIVATED, Take 2 Puffs by inhalation DAILY. LOT: [id number] EXP: MARCH 27, 2020 (2), Disp: 1 Inhaler, Rfl: 5 predniSONE (DELTASONE) 20 MG Oral Tab, Take 1 Tab by mouth TWICE DAILY. , Disp: 27 Tab, Rfl: 0 SALINE NASAL SPRAY NA, [place] in nose NEEDED., Disp: , Rfl: Spacer/Aero Chamber Mouthpiece Does not apply Misc, 1 Act by Does not apply route NEEDED (use with inhalor, wheezing)., Disp: 1 Device, Rfl: 0 Current Facility-Administered Medications: ibuprofen (MOTRIN) tablet 600 mg, 600 mg, Oral, Q6H PRN, Abelardo Alvarado MD Allergies Allergen Reactions Sertraline SUPERVISOR METER REPAIR SHOP Reaction and Other Zantac Rash Advair Diskus [...] Rash Penicillins Rash Pepcid Complete Rash Prednisone SUPERVISOR METER REPAIR SHOP Reaction Prilosec Otc Rash Quinolones Rash Trimethoprim [...] file Gets together: Not on file Attends faith service: Not on file Active member of [...] 60 lbs Social History Narrative Lives in [place], [place] Lives alone no significant other Never No children 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 Family History Problem Relation Age of Onset Cancer Maternal Aunt stomach Cancer Maternal Grandmother lung Heart Maternal Grandmother NM Cancer Other colon Hypertension Mother Hypertension Father [...] Visit Internal Medicine Shad Uriostegui MD [address] [place] [address] [phone] 09/03/2019 Office Visit Pulmonary Sandro Iyer MD [address] [place] [address] [phone] 03/09/2020 Office Visit Cardiology Jeanie Whitt CRNP [address] [place] [address] 04/21/2020 Office Visit Endocrinology Cheri Redmond FNP [address] [facility] [place] [address] Name Type Priority Associated [...] EDT) URINE GLUCOSE (POCT) Negative Negative mg/dl [facility] POCT URINE BILIRUBIN Negative Negative [facility] [place] (POCT) POCT Urine Ketones (POCT) Negative Negative [facility] POCT URINE SPECIFIC 1.010 1.005 - 1.030 [facility] GRAVITY (POCT) POCT URINE BLOOD (POCT) Large (A) Negative [facility] POCT URINE PH (POCT) 6.5 5.0 - 8.0 [facility] POCT URINE PROTEIN (POCT) Negative Negative mg/dl [facility] POCT URINE UROBILINOGEN 0.2 0.2 - 1.0 mg/dl [facility] (POCT) POCT URINE NITRITES Negative Negative [facility] (POCT) POCT URINE LEUKOCYTES Moderate (A) Negative [facility] (POCT) Cells/uL POCT Specimen Urine Performing Organization Address City/State/Zipcode Phone Number [facility] [address] [place] [address] documented in this encounter Visit Diagnoses Diagnosis Mass of left chest wall - Primary Generalized abdominal pain Abdominal pain, generalized Hematuria, unspecified type Acute cystitis with hematuria Acute cystitis Multiple drug allergies Other drug allergy documented in this encounter ([place]) [address] [place], [place] (Work) [address] documented as of this encounter
--- OUTSIDE RECORDS SUMMARY | 2019-06-08 01:27 | XMS REPORT | Summary of Care ---
:1980 Author Organization [facility] Address [address] [place] [address] Care Team Providers Name Role Phone Shad Uriostegui MD Primary Care Provider Reason for Visit Reason Comments Error Encounter Details Date Type Department Care Team Description 06/05/2019 Office Visit [facility] Diego Paul, NETTE [address] MARKETING ANALYST-C ENCOUNTER--DISREGARD [place] [address] [address] (Primary Dx) [phone] [place] [address] Allergies Active Allergy Reactions Severity Noted [...] Rash 08/30/2016 Pepcid Complete Rash 08/30/2016 Prednisone CLAM SHOVEL OPERATOR Reaction 08/23/2016 Prilosec Otc Rash 08/30/2016 Quinolones Rash 08/30/2016 Sertraline CLAM SHOVEL OPERATOR Reaction, Other High 08/23/2016 Trimethoprim Rash 01/30/2018 Albuterol Sulfate Other 12/07/2016 Not effective Zantac Rash Medium 11/26/2017 Bupropion Respiratory Reaction 08/30/2016 Hives documented as of this encounter (statuses as of 06/05/2019) Medications Medication Sig Dispensed Refills Start Date End Date Status clonazePAM (KLONOPIN) Take 3 mg by 0 Active 1 MG Oral Tab mouth EVERY BEDTIME. albuterol HFA (PROAIR Take 2 Puffs by 1 Inhaler 3 05/23/2018 Active HFA) 108 (90 Base) inhalation EVERY MCG/ACT Inhalation FOUR HOURS Aero SolnIndications: NEEDED Mild intermittent (wheezing). asthma with acute exacerbation atorvastatin Take 1 Tab by 90 Tab 1 04/07/2019 Active (LIPITOR) 40 MG Oral mouth DAILY. TabIndications: Mixed hyperlipidemia meclizine (ANTIVERT) Take 1 Tab by 90 Tab 0 04/14/2019 Active 25 MG Oral Tab mouth TWO TIMES DAILY NEEDED for dizziness/vertigo . Spacer/Aero Chamber 1 Act by Does not 1 Device 0 04/23/2019 Active Mouthpiece Does not apply route apply Misc NEEDED (use with inhalor, wheezing). levothyroxine Take 1 Tab by 30 Tab 4 04/27/2019 Active (SYNTHROID) 150 MCG mouth BEFORE Oral Tab BREAKFAST. mometasone furoate Take 2 Puffs by 1 Inhaler 5 05/19/2019 Active (ASMANEX 60 METERED inhalation DAILY. DOSES) 220 MCG/INH LOT: [id number] Inhalation AEROSOL EXP: MARCH 27, 2020 POWDER, BREATH (2) ACTIVATED cetirizine (ZYRTEC) Take 1 Tab by 30 Tab 5 05/21/2019 Active 10 MG Oral Tab mouth DAILY. Losartan Potassium TAKE 1 TABLET BY 30 Tab 5 05/26/2019 Active 100 MG Oral Tab MOUTH EVERY DAY fluticasone (FLONASE) [place] 2 Sprays in 1 Bottle 5 06/03/2019 06/02/2020 Active 50 MCG/ACT Nasal nose DAILY. Suspension Hospital, Clinic, or Other Ordered Dose Route [...] sleep apnea 08/15/2016 Overview: S/p UVPP surgery 2010 retest for obstructive sleep apnea normal 2011 Hypothyroidism due to acquired atrophy of thyroid 08/15/2016 Generalized anxiety disorder 08/15/2016 Overview: Therapist [facility] Mild intermittent asthma without complication 08/15/2016 [facility] JASWINDER on CPAP Overview: [facility]- CPAP. AHI 35 on 07/23/17 NPSG through [facility] documented as of this encounter (statuses as [...] of this encounter Last Filed Vital Signs Not on filedocumented in this encounter Progress Notes Diego Paul FNP-C - 06/05/2019 3:30 PM EDTPATIENT: Be Segovia : 1980 DATE OF SERVICE: 06/05/2019 Patient comes to the Walk-in clinic with right sided abdominal pain and groin pain x 3 days. Patient was seen at [facility] within the week for constipation issues. Patient given MOM but states pain is now increased to constant 06/06. Patient will be evaluated in treated in the ED, Author: SHENA Quiros 06/05/2019 16:15 documented in this encounter Plan of Treatment Date Type Specialty Care Team Description 06/08/2019 Ancillary Procedure Radiology 06/09/2019 Office Visit Otorhinolaryngology Zechariah Suggs Jr., MD [address] [place] [address] 07/01/2019 Office Visit Internal Medicine Shad Uriostegui MD [address] [place], [place] [id number] 07/01/2019 Office Visit Orthopedics Percy Funes MD [address] [place] [address] 09/03/2019 Office Visit Pulmonary Sandro Iyer MD [address] [place] [address] [phone] 03/09/2020 Office Visit Cardiology Jeanie Whitt CRNP [address] [address] 04/21/2020 Office Visit Endocrinology Cheri Redmond, NATALIYA [address] [place] [address] documented as of this encounter Goals Goal Patient Goal Associated Recent Patient-Stated? Author Type Problems Progress Blood Pressure Blood Pressure 141/71 No Earl, < 140/90 (06/05/2019 NATALIYA Hurst 3:41 PM EDT) Note: This is an individualized treatment (blood pressure) goal for Be Burkett Luca: Displayed above (on the left) is your [...] is an individualized lifestyle goal for Be Madelaine Segovia: Your body mass index (BMI) is more than 30. You should lose weight. A reasonable starting goal is to lose 10 pounds. Displayed above is how many pounds you have lost thus far towards your 10 pound weight loss goal. Take all prescribed medications as Self-management Natali Jones FNP directed Note: This is an individualized self-management goal for Be Burkett Luca: Please take all prescribed medications as directed. [...] filedocumented in this encounter Visit Diagnoses Diagnosis ERRONEOUS ENCOUNTER--DISREGARD - Primary documented in this encounter (Home) [address] [place], [place] (Work) [address] documented as of this encounter
== END 2019-06-07 19:40 | disposition home or self-care (01) ==
LOC: ED 16:55
DX: R31.9 Hematuria, unspecified (principal); R50.9 Fever, unspecified; Z87.442 Personal history of urinary calculi; I10 Essential (primary) hypertension; J45.909 Unspecified asthma, uncomplicated; Z88.5 Allergy status to narcotic agent; Z88.0 Allergy status to penicillin; Z88.2 Allergy status to sulfonamides; Z88.8 Allergy status to other drugs, medicaments and biological substances; Z88.1 Allergy status to other antibiotic agents; Z91.041 Radiographic dye allergy status; Z87.891 Personal history of nicotine dependence
CPT/HCPCS: 36415; 80053; 81003; 81015; 83690; 85025; 86140; 87086; 96361; 96374; 96375; 99282; J1885; J2405

== ENCOUNTER 2019-06-08 01:14 | Emergency (ER) | payer OTHER ==
--- NOTE | 2019-06-08 01:38 | ED ---
GI/ HPI - HPI Summary HPI Summary: Patient is a 38 y/o M presenting to ED via EMS with complaints of chest pain, hematuria and right flank pain. He was diagnosed with right kidney stones on 06/05. Patient was evaluated at [facility] on 06/07 and 06/03 for similar Sx. Patient states that he has been taking ibuprofen for pain and was prescribed Flomax when he was evaluated at [facility]. He reports flank pain has worsened and he also states that he has had minimal chest pain. On triage, pain is rated 10/10, nothing is noted to aggravate/alleviate Sx. Home medications and allergies are reviewed. - History of Current Complaint Chief Complaint: EDAbdPain Time Seen by Provider: 06/08/19 01:31 Stated Complaint: FLANK PAIN PER EMS Hx Obtained From: Patient Onset/Duration: Still Present, Worse Since Timing: Constant Severity: Moderate Current Severity: Severe Pain Intensity: 10 Location of Pain: Flank - right Associated Signs and Symptoms: Positive: Hematuria, Flank Pain - right, Chest Pain Aggravating Factor(s): Nothing Alleviating Factor(s): Nothing - Allergy/Home Medications Allergies/Adverse Reactions: Allergies Allergy/AdvReac Type Severity Reaction Status Date / Time albuterol [From Ventolin HFA] Allergy Difficulty Verified 06/07/19 17:01 Breathing bupropion Allergy Difficulty Verified 06/07/19 17:01 Breathing cephalexin Allergy Rash Verified 06/07/19 17:01 citalopram [From Celexa] Allergy See Comment Verified 06/07/19 17:01 codeine Allergy Difficulty Verified 06/07/19 17:01 Breathing doxycycline Allergy Rash Verified 06/07/19 17:01 escitalopram [From Lexapro] Allergy See Comment Verified 06/07/19 17:01 famotidine Allergy Rash Verified 06/07/19 17:01 fluticasone Allergy Difficulty Verified 06/07/19 17:01 [From Advair Diskus] Breathing Iodinated Contrast- Oral and Allergy Itching Verified 06/07/19 17:01 IV Dye moxifloxacin Allergy Hives Verified 06/07/19 17:01 omeprazole [From Prilosec] Allergy Rash Verified 06/07/19 17:01 Penicillins Allergy Rash Verified 06/07/19 17:01 Quinolones Allergy Rash Verified 06/07/19 17:01 salmeterol Allergy Difficulty Verified 06/07/19 17:01 [From Advair Diskus] Breathing sertraline [From Zoloft] Allergy Hallucinati Verified 06/07/19 17:01 ons sulfamethoxazole Allergy Rash Verified 06/07/19 17:01 [From Bactrim] trimethoprim [From Bactrim] Allergy Rash Verified 06/07/19 17:01 PMH/Surg Hx/FS Hx/Imm Hx Endocrine/Hematology History: Reports: Hx Thyroid Disease Denies: Hx Anticoagulant Therapy, Hx Diabetes Cardiovascular History: Reports: Hx Hypertension Denies: Hx Congestive Heart Failure, Hx Deep Vein Thrombosis, Hx Myocardial Infarction, Hx Pacemaker/ICD Respiratory History: Reports: Hx Asthma - ON MEDS, Hx Sleep Apnea - that was cured via surgery, Other Respiratory Problems/Disorders - pneumonia 2x Denies: Hx Chronic Obstructive Pulmonary Disease (COPD), Hx Lung Cancer, Hx Pneumonia, Hx Pulmonary Embolism GI History: Denies: Hx Gall Bladder Disease, Hx Gastrointestinal Bleed, Hx Ulcer, Hx Urosepsis History: Denies: Hx Kidney Stones, Hx Renal Disease Sensory History: Denies: Hx Contacts or Glasses, Hx Deafness, Hx Hearing Aid Opthamlomology History: Denies: Hx Contacts or Glasses Neurological History: Denies: Hx Dementia, Hx Migraine, Hx Seizures Psychiatric History: Reports: Hx Anxiety, Hx Panic Disorder - TO TAKE MEDICATION PRIOR TO MRI Denies: Hx Depression, Hx Schizophrenia, Hx Bipolar Disorder, Hx Substance Abuse - Surgical History Surgery Procedure, Year, and Place: RIGHT ELBOW RECONSTRUCTION SURGERY 1983,. SLEEP APNEA SURGERY 2010 - Tonsilectomy, uvula, stretching throat. CHOLECYSTECTOMY - 09/10/16, deviated septum. carpal tunnel 2018. cicumcision with biopsy. Nasal septum surgery 03/20/2019. rt shoulder surgery-bone spurs removed and bursitis 04/10/19 - Immunization History Date of Tetanus Vaccine: unknown Date of Influenza Vaccine: 07/12/15 Infectious Disease History: No Infectious Disease History: Denies: Hx Clostridium Difficile, Hx Hepatitis, Hx Human Immunodeficiency Virus (HIV), Hx of Known/Suspected MRSA, Hx Shingles, Hx Tuberculosis, Hx Known/ Suspected VRE, Hx Known/Suspected VRSA, History Other Infectious Disease, Traveled Outside the [place] in Last 30 Days - Family History Known Family History: Positive: Cardiac Disease - two uncles in their 40s, no primary relatives, Hypertension, Diabetes, Other - TIA on paternal side, cancer on both sides, blood clots, asthma Family History: FHx of seasonal allergies - both parents. TIA on paternal side, cancer on both sides, blood clots - Social History Alcohol Use: None Hx Substance Use: No Substance Use Type: Reports: None Substance Use Comment - Amount & Last Used: benzo's in the past Hx Tobacco Use: Yes Smoking Status (MU): Former Smoker Type: Cigarettes Amount Used/How Often: 1/2 ppd Length of Time of Smoking/Using Tobacco: 15 yrs Have You Smoked in the Last Year: No Review of Systems Positive: Chest Pain Positive: flank pain - right, hematuria All Other Systems Reviewed And Are Negative: Yes Physical Exam - Summary Physical Exam Summary: VITAL SIGNS: Reviewed. GENERAL: Patient is a well-developed and nourished male who is lying comfortable in the stretcher. Patient is not in any acute respiratory distress. HEAD AND FACE: No signs of trauma. No ecchymosis, hematomas or skull depressions. No sinus tenderness. EYES: PERRLA, EOMI x 2, No injected conjunctiva, no nystagmus. EARS: Hearing grossly intact. Ear canals and tympanic membranes are within normal limits. MOUTH: Oropharynx within normal limits. NECK: Supple, trachea is midline, no adenopathy, no JVD, no carotid bruit, no c- spine tenderness, neck with full ROM CHEST: Symmetric, no tenderness at palpation LUNGS: Clear to auscultation bilaterally. No wheezing or crackles. CVS: Regular rate and rhythm, S1 and S2 present, no murmurs or gallops appreciated. ABDOMEN: Soft, non-tender. No signs of distention. No rebound no guarding, and no masses palpated. Bowel sounds are normal. EXTREMITIES: FROM in all major joints, no edema, no cyanosis or clubbing. NEURO: Alert and oriented x 3. No acute neurological deficits. Speech is normal and follows commands. SKIN: Dry and warm Triage Information Reviewed: Yes Vital Signs On Initial Exam: Initial Vitals Temp Pulse Resp BP Pulse Ox 98.9 F 94 18 144/96 95 06/08/19 01:20 06/08/19 01:20 06/08/19 01:20 06/08/19 01:20 06/08/19 01:20 Vital Signs Reviewed: Yes Diagnostics - Vital Signs Vital Signs Temp Pulse Resp BP Pulse Ox 06/08/19 01:20 98.9 F 94 18 144/96 95 - Laboratory Lab Statement: Any lab studies that have been ordered have been reviewed, and results considered in the medical decision making process. - Radiology abdominal x-ray Radiology Interpretation Completed By: ED Physician Summary of Radiographic Findings: Abdominal X-ray showed increased chronic stool consistent with constipation. - EKG 0130 Cardiac Rate: NL - rate of 92 BPM EKG Rhythm: Sinus Rhythm Summary of EKG Findings: EKG showed NSR with rate of 92 BPM, normal axis, normal intervals, and no ischemic changes. GIGU Course/Dx - Course Course Of Treatment: Patient is a 38 y/o M presenting to ED via EMS with complaints of chest pain, hematuria and right flank pain. He was diagnosed with right kidney stones on 06/05. Patient was evaluated at [facility] on 06/07 and 06/03 for similar Sx. Patient states that he has been taking ibuprofen for pain and was prescribed Flomax when he was evaluated at [facility]. He reports flank pain has worsened and he also states that he has had minimal chest pain. Physical exam is unremarkable. EKG showed NSR with rate of 92 BPM, normal axis, normal intervals, and no ischemic changes. Abdominal X-ray showed increased chronic stool consistent with constipation. Patient was given Toradol 30 mg IM, Citrate of Magnesia 300 ml PO and Dulcolax sup 10 mg CA. Patient was discharged to home and will follow up with PCP. - Diagnoses Provider Diagnoses: Constipation Discharge - Sign-Out/Discharge Documenting (check all that apply): Patient Departure - discharge Patient Received Moderate/Deep Sedation with Procedure: No - Discharge Plan Condition: Stable Disposition: HOME Patient Education Materials: Constipation (ED) Referrals: Shad Uriostegui MD [Primary Care Provider] - 3 Days Additional Instructions: PLEASE RETURN TO THE ED IMMEDIATELY FOR WORSENING OR CONCERNING SYMPTOMS. FOLLOW UP WITH PRIMARY CARE PHYSICIAN WITHIN 3 DAYS. - Attestation Statements Document Initiated by Scribe: Yes Documenting Scribe: SUHA DICKINSON Provider For Whom Jean is Documenting (Include Credential): KIERA CARCAMO MD Scribe Attestation: SUHA Weinberg, scribed for KIERA CARCAMO MD on 06/08/19 at 0224. Status of Scribe Document: Ready
[2019-06-08] MEDS ORDERED: Ketorolac INJ* 30 MG/ML 1 ML VIAL IM ONE (01:42)
[2019-06-08] MEDS ORDERED: Magnesium CITRATE* 300 ML BTL PO ONE (02:15)
[2019-06-08] MEDS ORDERED: Bisacodyl SUPP* 10 MG SUPP PR ONE (02:15)
[2019-06-08 02:37] VITALS: BP 125/85
== END 2019-06-08 02:36 | disposition home or self-care (01) ==
LOC: ED 01:14
DX: K59.00 Constipation, unspecified (principal); R07.9 Chest pain, unspecified; R10.84 Generalized abdominal pain; R31.9 Hematuria, unspecified; E03.9 Hypothyroidism, unspecified; I10 Essential (primary) hypertension; J45.909 Unspecified asthma, uncomplicated; G47.30 Sleep apnea, unspecified; Z87.891 Personal history of nicotine dependence
CPT/HCPCS: 74019; 93005; 96372; 99282; A9270-GY; J1885

== ENCOUNTER 2019-06-09 14:41 | Emergency (ER) | payer OTHER ==
[2019-06-09 15:06] VITALS: BP 108/86
[2019-06-09] MEDS ORDERED: predniSONE TAB* 20 MG PO ONE (15:47)
--- NOTE | 2019-06-09 15:47 | UC ---
General HPI - HPI Summary HPI Summary: 38-year-old male comes in with a chief complaint of chest tightness and shorts of breath every time he takes Macrobid. Started yesterday as he took his first dose yesterday and he had the symptoms and then he improved. This morning took Benadryl prior taking the Macrobid. That the Macrobid had no problems and then several hours later the symptoms started again. He is not worried about a heart attack he feels like this is allergic reaction. He rates his shortness of breath 10 out of 10. Is no acute respiratory distress in clinic. The chest tightness is diffuse. Patient was started on Macrobid for having white blood cells and red blood cells in his urine and an elevated white blood cell count and his blood. Urine culture from June 07, 2019 comes back negative for infection. Patient has no other infectious symptoms at this time. He did see blood in his urine 2 days ago. He does not see blood in the urine anymore. He does have a history of kidney stones. - History of Current Complaint Chief Complaint: UCAllergicReaction Stated Complaint: ALLERGIC REACTION Time Seen by Provider: 06/09/19 14:55 Pain Intensity: 10 - Allergy/Home Medications Allergies/Adverse Reactions: Allergies Allergy/AdvReac Type Severity Reaction Status Date / Time albuterol [From Ventolin HFA] Allergy Difficulty Verified 06/09/19 14:56 Breathing bupropion Allergy Difficulty Verified 06/09/19 14:56 Breathing cephalexin Allergy Rash Verified 06/09/19 14:56 citalopram [From Celexa] Allergy See Comment Verified 06/09/19 14:56 codeine Allergy Difficulty Verified 06/09/19 14:56 Breathing doxycycline Allergy Rash Verified 06/09/19 14:56 escitalopram [From Lexapro] Allergy See Comment Verified 06/09/19 14:56 famotidine Allergy Rash Verified 06/09/19 14:56 fluticasone Allergy Difficulty Verified 06/09/19 14:56 [From Advair Diskus] Breathing Iodinated Contrast Media Allergy Itching Verified 06/09/19 14:56 [Iodinated Contrast- Oral and IV Dye] moxifloxacin Allergy Hives Verified 06/09/19 14:56 omeprazole [From Prilosec] Allergy Rash Verified 06/09/19 14:56 Penicillins Allergy Rash Verified 06/09/19 14:56 Quinolones Allergy Rash Verified 06/09/19 14:56 salmeterol Allergy Difficulty Verified 06/09/19 14:56 [From Advair Diskus] Breathing sertraline [From Zoloft] Allergy Hallucinati Verified 06/09/19 14:56 ons sulfamethoxazole Allergy Rash Verified 06/09/19 14:56 [From Bactrim] trimethoprim [From Bactrim] Allergy Rash Verified 06/09/19 14:56 Home Medications: Home Medications Clear Rx Nasal [place] 1 spray INH ONCE PRN 06/09/19 [History Confirmed 06/09/19] PMH/Surg Hx/FS Hx/Imm Hx Previously Healthy: Yes GI/ History: Kidney Stones Other History Of: Negative For: HIV, Hepatitis B, Hepatitis C, Anticoagulant Therapy - Surgical History Surgical History: Yes Surgery Procedure, Year, and Place: RIGHT ELBOW RECONSTRUCTION SURGERY 1983,. SLEEP APNEA SURGERY 2010 - Tonsilectomy, uvula, stretching throat. CHOLECYSTECTOMY - 09/10/16, deviated septum. carpal tunnel 2017. cicumcision with biopsy. Nasal septum surgery 03/20/2019. rt shoulder surgery-bone spurs removed and bursitis 04/10/19 - Family History Known Family History: Positive: Cardiac Disease - two uncles in their 40s, no primary relatives, Hypertension, Diabetes, Other - TIA on paternal side, cancer on both sides, blood clots, asthma Family History: FHx of seasonal allergies - both parents. TIA on paternal side, cancer on both sides, blood clots - Social History Alcohol Use: None Substance Use Type: None Substance Use Comment - Amount & Last Used: benzo's in the past Smoking Status (MU): Former Smoker Type: Cigarettes Amount Used/How Often: 1/2 ppd Length of Time of Smoking/Using Tobacco: 15 yrs Have You Smoked in the Last Year: No When Did the Patient Quit Smoking/Using Tobacco: 2016 Household Exposure Type: Cigarettes - Immunization History Most Recent Influenza Vaccination: fall 2015 Most Recent Tetanus Shot: utd Most Recent Pneumonia Vaccination: fall 2015 Review of Systems All Other Systems Reviewed And Are Negative: Yes Constitutional: Positive: Other - SEE HPI Skin: Positive: Negative Eyes: Positive: Negative ENT: Positive: Negative Respiratory: Positive: Shortness Of Breath Cardiovascular: Positive: Chest Pain Gastrointestinal: Positive: Negative Genitourinary: Positive: Negative Motor: Positive: Negative Neurovascular: Positive: Negative Musculoskeletal: Positive: Negative Neurological: Positive: Negative Psychological: Positive: Negative Is Patient Immunocompromised?: No Physical Exam Triage Information Reviewed: Yes Appearance: Well-Appearing, No Pain Distress, Well-Nourished Vital Signs: Initial Vital Signs Temp 98.5 F 06/09/19 14:52 Pulse 106 06/09/19 14:52 Resp 18 06/09/19 14:52 BP 108/86 06/09/19 14:52 Pulse Ox 95 06/09/19 14:52 Vital Signs Reviewed: Yes Eye Exam: Normal Eyes: Positive: Conjunctiva Clear ENT: Negative: Muffled voice, Hoarse voice Neck: Positive: Supple Respiratory: Positive: Lungs clear, Normal breath sounds, No respiratory distress Cardiovascular: Positive: RRR Abdomen Description: Positive: Nontender. Negative: CVA Tenderness (R), CVA Tenderness (L) Bowel Sounds: Positive: Present Musculoskeletal: Positive: Strength Intact, ROM Intact, No Edema - NO CALF TENDERNESS Neurological: Positive: Alert, Muscle Tone Normal Psychological: Positive: Age Appropriate Behavior Skin Exam: Normal Course/Dx - Course Course Of Treatment: I reviewed the CT scan of the abdomen and pelvis done on June 07, 2019 with the patient. That shows kidney stones in the right kidney no stones in the ureters. The urine culture from June 07, 2019 does not show any growth. At this time I recommended the patient stop the Macrobid as by culture there is no urinary tract infections and he also has no urinary symptoms. Gave the patient a dose of prednisone for the possibility of his symptoms being related to having an allergy to Macrobid. Patient had no shortness of breath by appearance or on exam or by oxygen saturation in clinic however the patient did say that he was short of breath. I also prescription for more prednisone for about times a day to be used daily if needed. Review the EKG with the patient' s is no change from his EKG from June 08, 2019. I let the patient know that it is any concern of heart or if he does not improve or if he worsens he needs to go the emergency department. - Diagnoses Provider Diagnosis: Shortness of breath, Chest tightness Discharge - Sign-Out/Discharge Documenting (check all that apply): Patient Departure All imaging exams completed and their final reports reviewed: No Studies - Discharge Plan Condition: Stable Disposition: HOME Prescriptions: predniSONE TAB* [Deltasone 20 MG TAB*] 40 mg PO DAILY PRN #8 tab PRN Reason: Allergy Symptoms Patient Education Materials: Chest Pain (ED), Shortness of Breath (ED) Referrals: Shad Uriostegui MD [Primary Care Provider] - Additional Instructions: FOLLOW UP WITH YOUR DOCTOR IF NOT COMPLETELY IMPROVED. GO TO THE EMERGENCY DEPARTMENT IF YOUR CONDITION DOES NOT IMPROVE OR WORSENS OR ANY QUESTIONS OR CONCERNS. - Billing Disposition and Condition Condition: STABLE Disposition: Home
--- OUTSIDE RECORDS SUMMARY | 2019-06-09 23:23 | XMS REPORT | Summary of Care ---
:1980 Author Organization [facility] Address 1 [facility] [place] [address] Care Team Providers Name Role Phone Shad Uriostegui MD Primary Care Provider Reason for Referral Refer to Department Only (Routine) Status Reason Specialty Diagnoses / Referred By Referred To Procedures Contact Contact Pending Review UROLOGY / Diagnoses Right flank pain Kidney stone Florencio, Urolograul Aleman PA-C [address] [place] [address] Scheduling Instructions Please indicate below in the Questions section the side affected in the diagnosis. To assist the urology dept. in serving your pt please see the Investigation List needs detailed below: (click magnifying glass on left corner of this box to enlarge for ease of reviewing list) All imagining studies done outside [facility] need to be sent to urology 1 week prior to patient being seen. Hematuria: Microscopic: 2 documented positive urine analysis for RBCs Renal CT with & Without IV contrast Urine cytology Gross: Renal CT with & Without IV contrast Urine cytology Elevated PSA: Most recent PSA results PSA History if available Benign Prostatic Hyperplasia (BPH): Instruct the patient to come with full bladder - for Uroflowmetry and post voiding residual measurement testing at urology appt. Renal stone disease: Renal CT without IV contrast Renal Mass or complex cyst on Ultrasound: Renal CT with & Without IV contrast Scrotal pain or mass: Scrotal ultrasound Erectile Dysfunction: Lipid profile Hemoglobin A1c Recurrent Urinary tract infection: Most recent culture results Urine analysis Children with UTI or Pylenephritis: Most recent culture results Renal Ultrasound Reason for Visit Reason Comments Hematuria pt states blood in urine 3 days. no pain. pt has been seen at [facility] and [facility] in the past 3 days Encounter Details Date Type Department Care Team Description 06/08/2019 Office Visit Love Disla, Right flank pain ( Primary Dx); Practice PA-C Kidney stone; [address] Constipation, [place] [address] [place] [address] [phone] Allergies Active Allergy Reactions Severity Noted Date [...] Rash 08/30/2016 Pepcid Complete Rash 08/30/2016 Prednisone INSURANCE REPRESENTATIVE Reaction 08/23/2016 Prilosec Otc Rash 08/30/2016 Quinolones Rash 08/30/2016 Sertraline INSURANCE REPRESENTATIVE Reaction, Other High 08/23/2016 Trimethoprim Rash 01/30/2018 Albuterol Sulfate Other 12/07/2016 Not effective Zantac Rash Medium 11/26/2017 Bupropion Respiratory Reaction 08/30/2016 Hives documented as of this encounter (statuses as of 06/08/2019) Medications Medication Sig Dispensed Refills Start Date [...] METERED inhalation DAILY. DOSES) 220 MCG/INH LOT: [id number] Inhalation AEROSOL EXP: MARCH 27, 2020 POWDER, BREATH (2) ACTIVATED cetirizine (ZYRTEC) Take 1 Tab by 30 Tab 5 05/21/2019 Active 10 MG Oral Tab mouth DAILY. Losartan Potassium TAKE 1 TABLET BY 30 Tab 5 05/26/2019 Active 100 MG Oral Tab MOUTH EVERY DAY fluticasone (FLONASE) [place] 2 Sprays in 1 Bottle 5 06/03/2019 06/02/2020 Active 50 MCG/ACT Nasal nose DAILY. Suspension ondansetron (ZOFRAN Take 1 Tab by 12 Tab 0 06/05/2019 06/12/2019 Active ODT) 4 MG Oral TABLET mouth EVERY EIGHT DISPERSIBLE HOURS NEEDED (nausea and vomiting) for up to 7 days. Tamsulosin HCl Take 1 Cap by 14 Cap 0 06/05/2019 06/19/2019 Active (FLOMAX) 0.4 MG Oral mouth DAILY for Cap 14 days. Additional information Patient taking differently: 0.4 mg Oral DAILY, Indications: stopped taking med due to rash, Reported on 06/08/2019 2:27 PM Hospital, Clinic, or Other Ordered Dose Route Frequency Start Date End Date Status Facility Administered Medication ibuprofen (MOTRIN) tablet 600 mg PO Q6 HRS PRN 02/06/2019 Active 600 mg documented as of this encounter (statuses as of 06/08/2019) Active Problems Problem Noted Date Essential hypertension [...] 08/15/2016 Generalized anxiety disorder 08/15/2016 Overview: Therapist [facility] Mild intermittent asthma without complication 08/15/2016 Overview: pfts [facility] 2011 JASWINDER on CPAP Overview: [facility]- CPAP. AHI 35 on 07/23/17 NPSG through [facility] documented as of this encounter (statuses as of 06/08/2019) Resolved Problems Problem Noted Date Resolved Date Problem 03/03/2019 05/07/2019 Right wrist pain 12/09/2017 05/07/2019 Calculus of gallbladder without cholecystitis without 09/10/2016 10/04/2016 obstruction Gallbladder polyp 08/15/2016 10/04/2016 documented as of this encounter (statuses as of 06/08/2019) Immunizations Name Administration Dates Next Due Influenza [...] Sign Reading Time Taken Comments Blood Pressure 138/88 06/08/2019 2:27 PM EDT Pulse 110 06/08/2019 2:27 PM EDT Temperature 37.4 06/08/2019 2:27 PM EDT C (99.3 F) Respiratory Rate - - Oxygen Saturation 98% 06/08/2019 2:27 PM EDT Inhaled Oxygen Concentration - - Weight 128.8 kg (284 lb) 06/08/2019 2:27 PM EDT Height 177.8 cm (5' 10") 06/08/2019 2:27 PM EDT Body Mass Index 40.75 06/08/2019 2:27 PM EDT documented in this encounter Patient Instructions Patient InstructionsDoLove nixon PA-C - 06/08/2019 2:40 PM EDT1. Did referral to urology -- patient OK going to [facility] -- has been to [facility] ER and [facility] twice the past 5 days 2. Escribed macrobid, 1 pill twice daily x 7 days, take with food Push water Rest 3. Avoid food that can cause constipation: bananas, rice, nuts Push water OTC Miralax daily F/U with Dr. Rolon documented in this encounter Progress Notes Love Matias PA-C - 06/08/2019 2:40 PM EDT PATIENT: Be Segovia : 1980 DATE OF SERVICE: 06/08/2019 REFERRING PRACTITIONER: Khanh PRIMARY CARE PROVIDER: Shad Uriostegui CHIEF COMPLAINT: Chief Complaint Patient presents with Hematuria pt states blood in urine 3 days. no pain. pt has been seen at [facility] and [facility] in the past 3 days Subjective HISTORY OF PRESENT ILLNESS: Be Segovia is a 38-y.o. male who presents for ER follow up 06/05/19 patient went to [facility] ER with right ab pain ER DATA: Results for orders placed or performed during the hospital encounter of 06/05/19 URINALYSIS (LAB) WITH REFLEX CULTURE Result Value Ref Range Urine Color Yellow Yellow Urine Appearance Cloudy (A) Clear Urine Glucose Negative Negative mg/dl Urine Bilirubin Negative Negative Urine Ketones Negative Negative Urine Specific [place] 1.014 1.005 - 1.030 Urine Blood Large (A) Negative Urine Ph 7.0 5.0 - 8.0 Urine Protein Negative Negative mg/dl Urine Urobilinogen 0.2 0.2 - 1.0 E.U./DL Urine Nitrite Negative Negative Urine Leukocytes Trace (A) Negative CBC WITH DIFFERENTIAL Result Value Ref Range WBC Count 13.28 (H) 4.23 - 9.07 K/uL RBC Count 5.41 4.30 - 5.89 M/UL Hemoglobin 15.5 13.7 - 17.5 g/dL Hematocrit 47.9 40.1 - 51.0 % MCV 88.5 79.0 - 92.2 FL MCH 28.7 25.7 - 32.2 PG MCHC 32.4 32.3 - 36.5 g/dL Platelet Count 257 163 - 337 K/uL MPV 10.2 9.4 - 12.4 FL RDW 14.6 (H) 11.6 - 14.4 % Neutrophil % 65.3 34.0 - 67.9 % Lymphocyte % 22.7 21.8 - 53.1 % Monocyte % 8.1 5.3 - 12.2 % Eosinophil % 2.1 0.8 - 7.0 % Basophil % 0.8 0.2 - 1.2 % nRBC % 0.0 0.0 - 0.2 % Neutrophil # 8.66 (H) 1.78 - 5.38 K/UL Lymphocyte # 3.02 1.32 - 3.57 K/UL Monocyte # 1.08 (H) 0.30 - 0.82 K/UL Eosinophil # 0.28 0.04 - 0.54 K/UL Basophil # 0.11 (H) 0.01 - 0.08 K/UL Immature Gran % 1.0 (H) 0.0 - 0.4 % Immature Gran # 0.13 (H) 0.00 - 0.03 K/uL NRBC # 0.00 0.00 - 0.12 K/uL COMPREHENSIVE METABOLIC PANEL Result Value Ref Range Sodium 140 134 - 145 mmol/L Potassium 3.7 3.5 - 5.1 mmol/L Chloride 104 98 - 107 mmol/L CO2 27 22 - 30 mmol/L Calcium 9.4 8.3 - 10.1 mg/dl Albumin 4.3 3.5 - 5.0 g/dl BUN 10 9 - 20 mg/dl Creatinine 0.7 (L) 0.8 - 1.5 mg/dl Glucose 83 70 - 99 mg/dl Total Protein 7.7 6.3 - 8.2 g/dl Total Bilirubin 0.9 0.0 - 1.1 MG/DL AST 82 (H) 17 - 59 U/L ALT 74 (H) 21 - 72 U/L Alkaline Phosphatase 102 40 - 150 U/L eGFR >60 See Interpretation Below ml/min/1.73ml Sq BUN/Creatinine Ratio 14 6 - 22 RATIO Anion Gap 9 3 - 11 mmol/L A/G Ratio 1.3 0.8 - 2.0 ratio LIPASE Result Value Ref Range Lipase 370 (H) 23 - 300 U/L URINE MICROSCOPIC WITH REFLEX CULTURE Result Value Ref Range Urine Wbc 0-2 0 - 5 /HPF Urine Rbc TNTC (A) 0 - 2 /HPF Urine Epithelial Cells Few None Seen /HPF Ct Abdomen Pelvis Without Iv Contrast Result Date: 06/05/2019 Procedure(s): CT ABDOMEN PELVIS WITHOUT IV CONTRAST Date of service: 06/05/2019 5: 08 PM Provided clinical information: 38 years, Male, "right flank pain x 3 days , has had nausea" Procedure and materials:Standard protocol. Contrast: None. Comparison studies: CT abdomen [...] right hydroureter is noted. No evidence of left- sided hydronephrosis. Afew punctate nonobstructing right renal calculi are noted [...] pelvis. No acute osseous abnormalities are seen. Mild degree of right-sided hydronephrosis secondary to a 2.7 mm calculus in right proximal ureter atL3-4 level and at least 1 or 2 additional calculi within the right medial ureter at approximately the L4-5 level. Individually measuring 1 to 2 mm. Urgency: IMPORTANT. This report contains IMPORTANT results which require clinical attention. Recommendation: No specific imaging recommendation. Signed by Percy Zhu MD on 06/05/2019 5:44 PM Was given IV fluids and toradol, diagnosed with Kidney stones, prescribed Zofran and flomax and follow up with urology, was discharged home 06/07/19 went to [facility] with worsening Right flank pain WBC: 12.0; AST: 45 Was given IV fluids, zofran and toradol Diagnosed with hematuria, instructed to take Macrobid prescribed by [facility] ER, discharged home 06/08/19 patient returned to [facility] via EMS with chest pain, hematuria, right flank pain EKG: NSR with rate of 92bpm, normal axis, normal intervals and no ischemic changes Abdominal Xray: increased chronic stool consistent with constipation. Patient was again given IV Toradol, oral citrate of magnesia and dulcolax suppostitor Diagnosed with constipation discharged home Pain is much improved Asking for prescription of macrobid 100mg BID x 7days -- was prescribed, but refused it at pharmacy Agrees now to take it Drinking plenty of water Asking for referral to Urology at [facility] Denies fever, chills, nausea, vomiting, chest pains, SOB Past Medical History: Diagnosis Date Anxiety Asthma Disorder of thyroid High cholesterol Hypertension Hypothyroidism JASWINDER on CPAP pt uses a bipap Osteoarthritis Past Surgical History: Procedure Laterality Date ARTHROSCOPY, SHOULDER ACROMIOPLASTY, DISTAL CLAVICLE Right 04/10/2019 Procedure: RIGHT SHOULDER ARTHROSCOPIC SUBACROMIAL DECOMPRESSION ; Surgeon: Percy Funes MD; Location: [facility] MAIN OR CARPAL TUNNEL RELEASE Right CIRCUMCISION EGD N/A 11/26/2017 Procedure: EGD with biopsies; Surgeon: Brianda Fairbanks MD; Location: [facility] MAIN OR ELBOW ARTHROPLASTY NEC Right LAPAROSCOPIC CHOLECYSTECTOMY N/A 09/10/2016 Procedure: LAPAROSCOPIC CHOLECYSTECTOMY; Surgeon: Mars Nicholas MD; Location: [facility] MAIN OR NASAL SINUS OPERATIONS OK RECONSTR NOSE+JIMENEZ SEPTAL REPAIR N/A 03/20/2019 Procedure: SEPTORHINOPLASTY, REDUCTION OF INFERIOR TURBINATES; Surgeon: Zechariah Suggs Jr., MD; Location: [facility] MAIN OR OK REMOVAL GALLBLADDER 2016 OK REVISE MEDIAN N/CARPAL TUNNEL SURG Right 01/15/2018 Procedure: RELEASE CARPAL TUNNEL/RIGHT CARPAL TUNNEL RELEASE; Surgeon: Abelardo Alvarado MD; Location: [facility] MAIN OR TONSILLECTOMY Family History Problem Relation Age of Onset Cancer Maternal Aunt stomach Cancer Maternal Grandmother lung Heart Maternal Grandmother ME Cancer Other colon Hypertension Mother Hypertension Father High Cholesterol Father Anesth Problems No family history Arthritis No family history Clotting Disorder No family history Diabetes No family history Heart Disease No family history Kidney Disease No family history Thyroid Disease No family history Current Outpatient Medications Medication Sig albuterol HFA (PROAIR HFA) 108 (90 Base) MCG/ACT Inhalation Aero Soln Take 2 Puffs by inhalation EVERY FOUR HOURS NEEDED (wheezing). atorvastatin (LIPITOR) 40 MG Oral Tab Take 1 Tab by mouth DAILY. cetirizine (ZYRTEC) 10 MG Oral Tab Take 1 Tab by mouth DAILY. clonazePAM (KLONOPIN) 1 MG Oral Tab Take 3 mg by mouth EVERY BEDTIME. fluticasone (FLONASE) 50 MCG/ACT Nasal Suspension [place] 2 Sprays in nose DAILY. levothyroxine (SYNTHROID) 150 MCG Oral Tab Take 1 Tab by mouth BEFORE BREAKFAST. Losartan Potassium 100 MG Oral Tab TAKE 1 TABLET BY MOUTH EVERY DAY meclizine (ANTIVERT) 25 MG Oral Tab Take 1 Tab by mouth TWO TIMES DAILY NEEDED for dizziness/vertigo. mometasone furoate (ASMANEX 60 METERED DOSES) 220 MCG/INH Inhalation AEROSOL POWDER, BREATH ACTIVATED Take 2 Puffs by inhalation DAILY. LOT: [id number] EXP: MARCH 27, 2020 (2) ondansetron (ZOFRAN ODT) 4 MG Oral TABLET DISPERSIBLE Take 1 Tab by mouth EVERY EIGHT HOURS NEEDED (nausea and vomiting) for up to 7 days. Spacer/Aero Chamber Mouthpiece Does not apply Misc 1 Act by Does not apply route NEEDED (use with inhalor, wheezing). Tamsulosin HCl (FLOMAX) 0.4 MG Oral Cap Take 1 Cap by mouth DAILY for 14 days. (Patient taking differently: Take 0.4 mg by mouth DAILY. 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 Positive asthma Cardiovascular: negative chest pain Gastrointestinal: negative abdominal pain, nausea or vomiting. Constipation is resolving Genitourinary: positive burning on urination, dysuria Musculoskeletal: positive arthritis/joint pain Neurologic: negative numbness or tingling of feet or hands Psychiatric: positive anxiety Hematologic/Lymphatic/Immunologic: negative allergies Endocrine: positive hypothyroidism Objective PHYSICAL EXAMINATION: VITALS: BP 138/88 (BP Location: Right arm, Patient Position: Sitting) | Pulse 110 | Temp 99.3 F (37.4 C) | Ht 5' 10" (1.778 m) | Wt 284 lb (128.8 kg) | SpO2 98% | BMI 40.75 kg/m Body mass index is 40.75 kg/m. General appearance: alert, mild distress, cooperative, oriented times 3, morbidly obese Skin: Skin color, texture, turgor normal. No rashes or lesions. Head: Normocephalic. No masses, lesions, tenderness or abnormalities Eyes: conjunctivae/corneas clear. PERRL, EOM's intact. Neck: Neck supple, FROM. No cervical or supraclavicular adenopathy. Lungs: Good diaphragmatic excursion. Lungs clear. Chest symmetrical. Normal breath sounds. Heart: RRR. No murmurs, clicks or gallops. No peripheral edema. Abdomen: Abdomen soft. Non-tender, no flank pain. BS normal. No masses, organomegaly or hernia. . IMPRESSION: ICD-9-CM ICD-10-CM 1. Right flank pain 789.09 R10.9 REFER TO UROLOGY 2. Kidney stone 592.0 N20.0 REFER TO UROLOGY 3. Constipation, unspecified constipation type 564.00 K59.00 Plan PLAN: 1. Did referral to urology -- patient OK going to [facility] 2. Escribed macrobid, 1 pill twice daily x 7 days, take with food Push water Rest 3. Avoid food that can cause constipation: bananas, rice, nuts Push water OTC Miralax daily F/U with Dr. Uriostegui Author: Love Matias PA-C 06/08/2019 14:31 documented in this encounter Plan of Treatment Date Type Specialty Care Team Description 06/09/2019 Office Visit Otorhinolaryngology Zechariah Suggs Jr., MD [address] [place] [address] 07/01/2019 Office Visit Internal Medicine Shad Uriostegui MD [address] [place] [address] 07/01/2019 Office Visit Orthopedics Percy Funes MD [address] [place] [address] 09/03/2019 Office Visit Pulmonary Sandro Iyer MD [address] [place] [address] 03/09/2020 Office Visit Cardiology Jeanie Whitt CRNP [address] [place] [address] 04/21/2020 Office Visit Endocrinology Cheri Redmond FNP [address] [facility] [place] [address] Name Type Priority Associated Diagnoses Order Schedule REFER TO UROLOGY Referral Routine Right flank pain Expected: 06/08/2019, Kidney stone Expires: 06/08/2020 documented as of this encounter Goals Goal Patient Goal Associated Recent Patient-Stated? Author Type Problems Progress Blood Pressure Blood Pressure 138/88 No Earl, < 140/90 (06/08/2019 NATALIYA Hurst 2:27 PM EDT) Note: This is an individualized treatment (blood pressure) goal for Be Segovia: Displayed above (on the left) is your goal for blood pressure control. Your most recent blood pressure is also shown above, on the right. You should try to achieve blood pressures that are lower than your goal listed above (on the left). Weight loss vs. 18 mo Lifestyle 14 (06/08/2019 2:27 PM No Natali Elliott FNP max (lbs) [...] filedocumented in this encounter Visit Diagnoses Diagnosis Right flank pain - Primary Abdominal pain, unspecified site Kidney stone Calculus of kidney Constipation, unspecified constipation type documented in this encounter (Home) [address] [place], [place] (Work) [id number] documented as of this encounter
--- OUTSIDE RECORDS SUMMARY | 2019-06-09 23:23 | XMS REPORT | Summary of Care ---
:1980 Author Organization [facility] Address 1 [facility] [place] [address] Care Team Providers Name Role Phone Shad Uriostegui MD Primary Care Provider Reason for Visit Reason Comments Follow Up Patient underwent Septorhinoplasty 03/20/19, here for routine follow up. He is requesting some sort of nasal spray for congestion. Encounter Details Date Type Department Care Team Description 06/09/2019 Office Visit Zechariah Larson Jr., Nasal obstruction ( Primary Dx); Otorhinolaryngology Seasonal allergic rhinitis, unspecified trigger [facility] [place] [id number] [place] [phone] [address] Allergies Active Allergy Reactions Severity Noted Date [...] Iodinated Diagnostic Dermatologic Reaction Low 01/17/[address] Dye Other 03/23/2019 Keflex Rash 08/30/2016 Lexapro Other 08/30/2016 Suicidal thoughts Morphine Respiratory Reaction 09/21/2017 Pantoprazole Rash 12/02/2017 Penicillins Rash 08/30/2016 Pepcid Complete Rash 08/30/2016 Prednisone CODER Reaction 08/23/2016 Prilosec Otc Rash 08/30/2016 Quinolones Rash 08/30/2016 Sertraline CODER Reaction, Other High 08/23/2016 Sulfamethoxazole-Trimetho Other 03/23/2019 prim Trimethoprim Rash 01/30/2018 Albuterol Sulfate Other 12/07/2016 Not effective Zantac Rash Medium 11/26/2017 Bupropion Respiratory Reaction 08/30/2016 Hives documented as of this encounter (statuses as of 06/09/2019) Medications Medication Sig Dispensed Refills Start Date [...] METERED inhalation DAILY. DOSES) 220 MCG/INH LOT: [id number] Inhalation AEROSOL EXP: MARCH 27, 2020 POWDER, BREATH (2) ACTIVATED cetirizine (ZYRTEC) Take 1 Tab by 30 Tab 5 05/21/2019 Active 10 MG Oral Tab mouth DAILY. Losartan Potassium TAKE 1 TABLET BY 30 Tab 5 05/26/2019 Active 100 MG Oral Tab MOUTH EVERY DAY fluticasone (FLONASE) [place] 2 Sprays in 1 Bottle 5 06/03/2019 06/02/2020 Active 50 MCG/ACT Nasal nose DAILY. Suspension Additional information Patient taking differently: 2 [place] Nasal DAILY, Indications: causes headaches/migraines, Reported on 06/09/2019 2:15 PM ondansetron (ZOFRAN ODT) Take 1 Tab by mouth 12 Tab 0 06/05/20192018 Active 4 MG Oral TABLET EVERY EIGHT HOURS DISPERSIBLE NEEDED (nausea and vomiting) for up to 7 days. Tamsulosin HCl (FLOMAX) Take 1 Cap by mouth 14 Cap 0 06/05/20192018 Active 0.4 MG Oral Cap DAILY for 14 days. Additional information Patient taking differently: 0.4 mg Oral DAILY, Indications: stopped taking med due to rash, Reported on 06/08/2019 2:27 PM Hospital, Clinic, or Other Ordered Dose Route Frequency Start Date End Date Status Facility Administered Medication ibuprofen (MOTRIN) tablet 600 mg PO Q6 HRS PRN 02/06/2019 Active 600 mg documented as of this encounter (statuses as of 06/09/2019) Active Problems Problem Noted Date Essential hypertension [...] 08/15/2016 Generalized anxiety disorder 08/15/2016 Overview: Therapist [facility] Mild intermittent asthma without complication 08/15/2016 Overview: [facility] 2012 JASWINDER on CPAP Overview: [facility]- CPAP. AHI 35 on 07/23/17 NPSG through [facility] documented as of this encounter (statuses as of 06/09/2019) Resolved Problems Problem Noted Date Resolved Date Problem 03/03/2019 05/07/2019 Right wrist pain 12/09/2017 05/07/2019 Calculus of gallbladder without cholecystitis without 09/10/2016 10/04/2016 obstruction Gallbladder polyp 08/15/2016 10/04/2016 documented as of this encounter (statuses as of 06/09/2019) Immunizations Name Administration Dates Next Due Influenza [...] Sign Reading Time Taken Comments Blood Pressure - - Pulse - - Temperature - - Respiratory Rate - - Oxygen Saturation - - Inhaled Oxygen Concentration - - Weight 128.8 kg (284 lb) 06/09/2019 2:08 PM EDT Height 177.8 cm (5' 10") 06/09/2019 2:08 PM EDT Body Mass Index 40.75 06/09/2019 2:08 PM EDT documented in this encounter Progress Notes Zechariah Suggs Jr., MD - 06/09/2019 2:00 PM EDT03/20/19---endonasal SRP Doing much better, but allergic rhinitis Exam: expected minimal edema, good early septal position Rec: Reassured, cont NS spray prn mj after weather dries out, rtc prn any problems. He would like to restart on a steroid nasal spray for his allergies, noting that in the past Flonaseis given him bad headaches, but Flonase is the only nasal steroid his insurance company will cover.I have instructed him to restart on Flonase and quit immediately if he has headaches. He states that he has had success with Rhinocort, Nasacort and Nasonex in the past and perhaps if the fails the Flonase trial the insurance company might cover 1 of these other narrowed sprays. 2: 19 PM EDTdocumented in this encounter Plan of Treatment Date Type Specialty Care Team Description 07/01/2019 Office Visit Internal Medicine Shad Uriostegui MD [address] [place] [address] [phone] 07/01/2019 Office Visit Orthopedics Percy Funes MD [address] [place] [address] 07/29/2019 Office Visit Urology Ismael Landers MD [address] [place] [address] 09/03/2019 Office Visit Pulmonary Sandro Iyer MD [address] [place] [address] [phone] 03/09/2020 Office Visit Cardiology Jeanie Whitt CRNP [address] [place] [address] 04/21/2020 Office Visit Endocrinology Cheri Redmond FNP [address] [facility] [place] [address] documented as of this [...] Weight loss vs. 18 mo Lifestyle 14 (06/09/2019 2:08 PM No Natali Elliott FNP max (lbs) [...] filedocumented in this encounter Visit Diagnoses Diagnosis Nasal obstruction - Primary Other diseases of nasal cavity and sinuses Seasonal allergic rhinitis, unspecified trigger documented in this encounter (Home) [address] [place], [place] (Work) [id number] documented as of this encounter
== END 2019-06-09 15:58 | disposition home or self-care (01) ==
LOC: UCEAST 14:41
DX: R07.9 Chest pain, unspecified (principal); R06.02 Shortness of breath; Z88.5 Allergy status to narcotic agent; Z88.0 Allergy status to penicillin; Z88.2 Allergy status to sulfonamides; Z87.891 Personal history of nicotine dependence
CPT/HCPCS: 93005; 99212; G0463; J7512

== ENCOUNTER 2019-07-06 17:23 | Emergency (ER) | payer OTHER ==
--- OUTSIDE RECORDS SUMMARY | 2019-07-06 17:30 | XMS REPORT | Summary of Care ---
:1980 Author Organization [facility] Address [address] [address] Care Team Providers Name Role Phone Shad Uriostegui MD Primary Care Provider Reason for Visit Reason Comments Low Back Pain Groin Pain Encounter Details Date Type Department Care Team Description 06/29/2019 Emergency [facility] Emergency Department Emergency [address] [id number] Allergies Active Allergy Reactions Severity Noted Date [...] Rash 08/30/2016 Pepcid Complete Rash 08/30/2016 Prednisone [employer] WORKER Reaction 08/23/2016 Prilosec Otc Rash 08/30/2016 Quinolones Rash 08/30/2016 Sertraline SHEETMET[employer] WORKER Reaction, Other High 08/23/2016 Sulfamethoxazole-Trimetho Other 03/23/2019 prim Trimethoprim Rash 01/30/2018 Albuterol Sulfate Other 12/07/2016 Not effective Zantac Rash Medium 11/26/2017 Bupropion Respiratory Reaction 08/30/2016 Hives documented as of this encounter (statuses as of 06/30/2019) Medications Medication Sig Dispensed Refills Start Date [...] MG Oral mouth DAILY. TabIndications: Mixed hyperlipidemia Spacer/Aero Chamber 1 Act by Does not 1 Device 0 04/23/2019 Active Mouthpiece Does not apply route apply Misc NEEDED (use with inhalor, wheezing). levothyroxine Take 1 Tab by 30 Tab 4 04/27/2019 Active (SYNTHROID) 150 MCG mouth BEFORE Oral Tab BREAKFAST. mometasone furoate Take 2 Puffs by 1 Inhaler 5 05/19/2019 Active (ASMANEX 60 METERED inhalation DAILY. DOSES) 220 MCG/INH LOT: [id number] Inhalation AEROSOL EXP: MARCH 27, 2020 POWDER, BREATH (2) ACTIVATED cetirizine (ZYRTEC) Take 1 Tab by 30 Tab 5 05/21/2019 Active 10 MG Oral Tab mouth DAILY. Losartan Potassium TAKE 1 TABLET BY 30 Tab 5 05/26/2019 Active 100 MG Oral Tab MOUTH EVERY DAY fluticasone (FLONASE) [place] 2 Sprays in 1 Bottle 5 06/03/2019 06/02/2020 Active 50 MCG/ACT Nasal nose DAILY. Suspension Additional information Patient taking differently: 2 [place] Nasal DAILY, Indications: causes headaches/migraines, Reported on 06/09/2019 2:15 PM metoprolol Take 1 Tab by mouth 60 Tab 1 06/24/2019 Active (LOPRESSOR) 25 MG THREE TIMES DAILY Oral Tab NEEDED (heart palpitaitons). diclofenac Take 1 Tab by mouth 20 Tab 0 06/29/2019 Active (VOLTAREN) 75 MG TWICE DAILY for 10 019 Oral Tab EC days. meclizine Take 1 Tab by mouth 90 Tab 0 04/14/2019 Discontinued (ANTIVERT) 25 MG TWO TIMES DAILY 019 (Reorder) Oral Tab NEEDED for dizziness/vertigo. Hospital, Clinic, or Other Ordered Dose Route Frequency Start Date End Date Status Facility Administered Medication ibuprofen (MOTRIN) tablet 600 mg PO Q6 HRS PRN 02/06/2019 Active 600 mg documented as of this encounter (statuses as of 06/30/2019) Active Problems Problem Noted Date Essential hypertension [...] 08/15/2016 Generalized anxiety disorder 08/15/2016 Overview: Therapist [facility] Mild intermittent asthma without complication 08/15/2016 Overview: [facility] 2011 JASWINDER on CPAP Overview: [facility]- CPAP. AHI 35 on 07/23/17 NPSG through [facility] documented as of this encounter (statuses as of 06/30/2019) Resolved Problems Problem Noted Date Resolved Date Problem 03/03/2019 05/07/2019 Right wrist pain 12/09/2017 05/07/2019 Calculus of gallbladder without cholecystitis without 09/10/2016 10/04/2016 obstruction Gallbladder polyp 08/15/2016 10/04/2016 documented as of this encounter (statuses as of 06/30/2019) Immunizations Name Administration Dates Next Due Influenza [...] Sign Reading Time Taken Comments Blood Pressure 138/87 06/29/2019 7:51 AM EDT Pulse 98 06/29/2019 7:51 AM EDT Temperature 36.4 06/29/2019 7:51 AM EDT C (97.5 F) Respiratory Rate 16 06/29/2019 7:51 AM EDT Oxygen Saturation 95% 06/29/2019 7:51 AM EDT Inhaled Oxygen Concentration - - Weight - - Height - - Body Mass Index - - documented in this encounter Discharge Instructions Raj Mills PA-C - 06/29/2019Voltaren 75 mg, 1 tablet twice a day. Do not take with other NSAIDs (Ibuprofen, Aleve, Naproxen). OTC solanpas lidocaine patch as directed Rest, avoid aggravating activities Avoid strict bed rest, this may prolong recovery time Warm moist compresses to back Warm soaks in tub Note for work Follow-up with PCP Return to the emergency department or call if your symptoms worsen or you have any other concerns: bowel or bladder incontinence, numbness into groin and genitals, inability to move lower extremities. documented in this encounter Plan of Treatment Date Type Specialty Care Team Description 07/01/2019 Office Visit Orthopedics Percy Funes MD [address] [address] [phone] 07/06/2019 [facility] Cardiology 09/03/2019 Office Visit Pulmonary Sandro Iyer MD [address] [place] [address] [phone] 03/09/2020 Office Visit Cardiology Jeanie Whitt CRNP [address] [address] 04/21/2020 Office Visit Endocrinology Cheri Redmond FNP [address] [facility] [address] [address] documented as of this encounter Goals Goal Patient Goal Associated Recent Patient-Stated? Author Type Problems Progress Blood Pressure Blood Pressure 138/87 No Earl, < 140/90 (06/29/2019 NATALIYA Hurst 7:51 AM EDT) Note: This is an individualized treatment (blood pressure) goal for Be L Luca: Displayed above (on the left) is your goal for blood pressure control. Your most recent blood pressure is also shown above, on the right. You should try to achieve blood pressures that are lower than your goal listed above (on the left). Weight loss vs. 18 mo Lifestyle 10 (06/24/2019 11:04 AM No Natali Elliott FNP max (lbs) >= 10 EDT) Note: This is an individualized lifestyle goal for Be L Luca: Your body mass index (BMI) is more than 30. You should lose weight. A reasonable starting goal is to lose 10 pounds. Displayed above is how many pounds you have lost thus far towards your 10 pound weight loss goal. Take all prescribed medications as Self-management No Natali Elliott FNP directed Note: This is an individualized self-management goal for Be L Luca: Please take all prescribed medications as [...] Procedure Name Priority Date/Time Associated Comments Diagnosis CT ABDOMEN PELVIS STAT 06/29/2019 9:40 Results for this WITHOUT IV CONTRAST AM EDT procedure are in the results section. CBC WITH DIFFERENTIAL STAT 06/29/2019 9:08 Results for this AM EDT procedure are in the results section. URINE MICROSCOPIC WITH STAT 06/29/2019 9:08 Results for this REFLEX CULTURE AM EDT procedure are in the results section. URINALYSIS (LAB) WITH STAT 06/29/2019 9:08 Results for this REFLEX CULTURE AM EDT procedure are in the results section. URINE CULTURE (C&S) STAT 06/29/2019 9:08 Results for this AM EDT procedure are in the results section. GC/CHLAMYDIA DNA PROBE STAT 06/29/2019 9:08 Results for this AM EDT procedure are in the results section. LIPASE STAT 06/29/2019 9:08 Results for this AM EDT procedure are in the results section. COMPREHENSIVE STAT 06/29/2019 9:08 Results for this METABOLIC PANEL AM EDT procedure are in the results section. documented in this encounter Results CT ABDOMEN PELVIS WITHOUT IV CONTRAST (06/29/2019 9:40 AM EDT) Specimen Impressions Performed At 1. No CT evidence of an acute inflammatory process in the abdomen or pelvis to account for the patient's pain. 2. Hepatomegaly with diffuse steatosis. 3. Status post cholecystectomy. Urgency: Routine. This is a routine medical imaging report. Recommendation: No specific imaging recommendation. Signed by Saad Callejas on 06/29/2019 10:15 AM Narrative Performed At Procedure(s): CT ABDOMEN PELVIS WITHOUT IV CONTRAST Date of service: 06/29/2019 9:30 AM Provided clinical information: 38 years, Male, "right back pain into right groin x 4 days, h/o kidney stones" Procedure and materials: Standard protocol. Contrast: None Comparison studies: 06/05/2019 Findings: Evaluation of the lungs bases demonstrate no significant abnormality. Mild linear subsegmental atelectasis in the left lower lobe. There is no pleural effusion. The heart appears within normal limits in size, with no pericardial effusion. The liver is enlarged, with redemonstration of diffuse steatosis. There is no intra- or extrahepatic biliary ductal dilatation. The gallbladder is surgically absent. Stable splenic hypodensity. The unenhanced biliary tract, pancreas, adrenal glands, and kidneys are grossly unremarkable, noting limitation of lack of intravenous contrast material. There are scattered mesenteric and retroperitoneal sub-centimeter lymph nodes, with no nodes identified which meet CT size criteria for pathologic enlargement. Stomach is grossly unremarkable. Small bowel and colon are within normal limits in caliber with no evidence of intestinal obstruction or surrounding inflammatory changes. The appendix is normal in appearance. There is no evidence of ascites or pneumoperitoneum. The urinary bladder is poorly distended, limiting evaluation. The prostate gland and seminal vesicles are normal in appearance. There is no pelvic ascites or lymphadenopathy. Evaluation of the osseous structures demonstrates degenerative changes in the lower thoracic spine. Procedure Note Interface, Rad Results - 06/29/2019 10:17 AM EDT Procedure(s): CT ABDOMEN PELVIS WITHOUT IV CONTRAST Date of service: 06/29/2019 9:30 AM Provided clinical information: 38 years, Male, "right back pain into right groin x 4 days, h/o kidney stones" Procedure and materials: Standard protocol. Contrast: None Comparison studies: 06/05/2019 Findings: Evaluation of the lungs bases demonstrate no significant abnormality. Mild linear subsegmental atelectasis in the left lower lobe. There is no pleural effusion. The heart appears within normal limits in size, with no pericardial effusion. The liver is enlarged, with redemonstration of diffuse steatosis. There is no intra- or extrahepatic biliary ductal dilatation. The gallbladder is surgically absent. Stable splenic hypodensity. The unenhanced biliary tract, pancreas, adrenal glands, and kidneys are grossly unremarkable, noting limitation of lack of intravenous contrast material. There are scattered mesenteric and retroperitoneal sub-centimeter lymph nodes, with no nodes identified which meet CT size criteria for pathologic enlargement. Stomach is grossly unremarkable. Small bowel and colon are within normal limits in caliber with no evidence of intestinal obstruction or surrounding inflammatory changes. The appendix is normal in appearance. There is no evidence of ascites or pneumoperitoneum. The urinary bladder is poorly distended, limiting evaluation. The prostate gland and seminal vesicles are normal in appearance. There is no pelvic ascites or lymphadenopathy. Evaluation of the osseous structures demonstrates degenerative changes in the lower thoracic spine. IMPRESSION 1. No CT evidence of an acute inflammatory process in the abdomen or pelvis to account for the patient's pain. 2. Hepatomegaly with diffuse steatosis. 3. Status post cholecystectomy. Urgency: Routine. This is a routine medical imaging report. Recommendation: No specific imaging recommendation. Signed by Saad Callejas on 06/29/2019 10:15 AM URINE CULTURE (C&S) (06/29/2019 9:08 AM EDT) Urine Culture No growth of clinical [facility] Specimen Urine Performing Organization Address [facility] Phone Number [facility] [address] [address] URINE MICROSCOPIC WITH REFLEX CULTURE (06/29/2019 9:08 AM EDT) Urine Wbc 5-10 (A) 0 - 5 /HPF [facility] Urine Rbc 0-2 0 - 2 /HPF [facility] Urine Epithelial Few None Seen /HPF [facility] Specimen Urine Performing Organization Address [facility] Phone Number [facility] [address] [id number] [phone] GC/CHLAMYDIA PCR ASSAY (06/29/2019 9:08 AM EDT) Chlamydia trachomatis Negative Negative [facility] Neisseria gonorrhoeae Negative Negative [facility] Specimen Urogenital Narrative Performed At This assay has not been evaluated in patients less [facility] than 14 years of age, in women, or in patients with a history of hysterectomy. The assay should not be used for the evaluation of suspected sexual abuse or for other medico-legal indications. Performing Organization Address [facility] Phone Number [facility] [address] [address] URINALYSIS (LAB) WITH REFLEX CULTURE (06/29/2019 9:08 AM EDT) Urine Color Yellow Yellow [facility] Urine Appearance Clear Clear [facility] Urine Glucose Negative Negative mg/dl [facility] Urine Bilirubin Negative Negative [facility] Urine Ketones Negative Negative [facility] Urine Specific 1.005 1.005 - 1.030 [facility] Urine Blood Negative Negative [facility] Urine Ph 6.0 5.0 - 8.0 [facility] Urine Protein Negative Negative mg/dl [facility] Urine Urobilinogen 0.2 0.2 - 1.0 [facility] Urine Nitrite Negative Negative [facility] Urine Leukocytes Moderate (A) Negative [facility] Specimen Urine Performing Organization Address [facility] Phone Number [facility] [address] [facility] [address] [address] [phone] LIPASE (06/29/2019 9:08 AM EDT) Lipase 67 23 - 300 U/L [facility] Specimen Blood Performing Organization Address [facility] Phone Number [facility] [address] [address] COMPREHENSIVE METABOLIC PANEL (06/29/2019 9:08 AM EDT) Sodium 141 134 - 145 mmol/L [facility] Potassium 3.8 3.5 - 5.1 mmol/L [facility] Chloride 106 98 - 107 mmol/L [facility] CO2 25 22 - 30 mmol/L [facility] Calcium 9.6 8.3 - 10.1 mg/dl [facility] Albumin 4.3 3.5 - 5.0 g/dl [facility] BUN 7 (L) 9 - 20 mg/dl [facility] Creatinine 0.7 (L) 0.8 - 1.5 mg/dl [facility] Glucose 101 (H) 70 - 99 mg/dl [facility] Total Protein 7.8 6.3 - 8.2 g/dl [facility] Total Bilirubin 0.4 0.0 - 1.1 MG/DL [facility] AST 50 17 - 59 U/L [facility] ALT 51 21 - 72 U/L [facility] Alkaline 101 40 - 150 U/L [facility] eGFR >60 See Interpretation [facility] Comment: Below ml/min/1.73ml GROUP S[facility] Estimated GFR Interpretation: Above 60ml/min/1.73m2 = Normal Renal Function 30-59 ml/min/1.73m2 = Stage 3 Chronic Kidney Disease 15-29 ml/min/1.73m2 = Stage 4 Chronic Kidney Disease Less than 15 ml/min/1.73m2 = Stage 5 Chronic Kidney Disease The GFR value is calculated using the Modification of Diet in Renal Disease ( MDRD) Study Equation which can be found at: https://www.kidney.org/content/qixj-bjiyx-lkcaqemn BUN/Creatinine 10 6 - 22 RATIO [facility] Anion Gap 10 3 - 11 mmol/L [facility] A/G Ratio 1.2 0.8 - 2.0 ratio [facility] Specimen Blood Performing Organization Address City/State/Zipcode Phone Number [facility] [address] [place] [address] [phone] CBC WITH DIFFERENTIAL (06/29/2019 9:08 AM EDT) WBC Count 10.84 (H) 4.23 - 9.07 K/uL [facility] RBC Count 5.11 4.30 - 5.89 M/UL [facility] Hemoglobin 14.7 13.7 - 17.5 g/dL [facility] Hematocrit 44.0 40.1 - 51.0 % [facility] MCV 86.1 79.0 - 92.2 FL [facility] MCH 28.8 25.7 - 32.2 PG [facility] MCHC 33.4 32.3 - 36.5 g/dL [facility] Platelet Count 258 163 - 337 K/uL [facility] MPV 10.3 9.4 - 12.4 FL [facility] RDW 13.5 11.6 - 14.4 % [facility] Neutrophil % 52.7 34.0 - 67.9 % [facility] Lymphocyte % 33.9 21.8 - 53.1 % [facility] Monocyte % 8.6 5.3 - 12.2 % [facility] Eosinophil % 2.9 0.8 - 7.0 % [facility] Basophil % 1.2 0.2 - 1.2 % [facility] nRBC % 0.0 0.0 - 0.2 % [facility] Neutrophil # 5.71 (H) 1.78 - 5.38 K/UL [facility] Lymphocyte # 3.68 (H) 1.32 - 3.57 K/UL [facility] Monocyte # 0.93 (H) 0.30 - 0.82 K/UL [facility] Eosinophil # 0.31 0.04 - 0.54 K/UL [facility] Basophil # 0.13 (H) 0.01 - 0.08 K/UL [facility] Immature Gran % 0.7 (H) 0.0 - 0.4 % [facility] Immature Gran # 0.08 (H) 0.00 - 0.03 K/uL [facility] NRBC # 0.00 0.00 - 0.12 K/uL [facility] Specimen Blood Performing Organization Address City/State/[facility] Phone Number [facility] [address] [address] [phone] documented in this encounter Visit Diagnoses Diagnosis Strain of lumbar region, initial encounter - Primary documented in this encounter Administered Medications Medication Order MAR Action Action Date Dose Rate Site normal saline bolus 1,000 mL New Bag 06/29/2019 9:44 AM EDT 1,000 mL 1,000 mL, Intravenous, BOLUS, 1 dose, 06/29/19 at 1000 documented in this encounter (Home) [address], [place] (Work) [id number] documented as of this encounter
--- OUTSIDE RECORDS SUMMARY | 2019-07-06 17:30 | XMS REPORT | Summary of Care ---
:1980 Author Organization [facility] Address [address] [address] Care Team Providers Name Role Phone Shad Uriostegui MD Primary Care Provider Reason for Visit Reason Comments Low Back Pain Groin Pain Encounter Details Date Type Department Care Team Description 06/29/2019 Emergency [facility] Emergency Department Emergency [address] [id number] Allergies Active Allergy Reactions Severity Noted Date [...] Rash 08/30/2016 Pepcid Complete Rash 08/30/2016 Prednisone MENTAL HEALTH PROFESSIONAL Reaction 08/23/2016 Prilosec Otc Rash 08/30/2016 Quinolones Rash 08/30/2016 Sertraline MENTAL HEALTH PROFESSIONAL Reaction, Other High 08/23/2016 Sulfamethoxazole-Trimetho Other 03/23/2019 [...] METERED inhalation DAILY. DOSES) 220 MCG/INH LOT: [id number] Inhalation AEROSOL EXP: MARCH 27, 2020 POWDER, BREATH (2) ACTIVATED cetirizine (ZYRTEC) Take 1 Tab by 30 Tab 5 05/21/2019 Active 10 MG Oral Tab mouth DAILY. Losartan Potassium TAKE 1 TABLET BY 30 Tab 5 05/26/2019 Active 100 MG Oral Tab MOUTH EVERY DAY fluticasone (FLONASE) Foster 2 Sprays in 1 Bottle 5 06/03/2019 06/02/2020 Active 50 MCG/ACT Nasal nose DAILY. Suspension Additional information Patient taking differently: 2 Foster Nasal DAILY, Indications: causes headaches/migraines, Reported on [...] 08/15/2016 Generalized anxiety disorder 08/15/2016 Overview: Therapist [facility] Mild intermittent asthma without complication 08/15/2016 Overview: [facility] 2011 JASWINDER on CPAP Overview: [facility]- CPAP. AHI 35 on 07/23/17 NPSG through [facility] documented as of this encounter (statuses as [...] Orthopedics Percy Funes MD [address] [address] [phone] 07/06/2019 IPPR Cardiology 09/03/2019 Office Visit Pulmonary Sandro Iyer MD [address] [place] [address] [phone] 03/09/2020 Office Visit Cardiology Jeanie Whitt CRNP [address] [address] 04/21/2020 Office Visit Endocrinology Cheri Redmond FNP [address] [facility] [address] [place] [address] documented as [...] GROUP LABORATORY Specimen Urine Performing Organization Address [facility] Phone Number [email or web address] [address] [address] URINE MICROSCOPIC WITH REFLEX CULTURE (06/29/2019 9:08 AM EDT) Urine Wbc 5-10 (A) 0 - 5 /HPF [email or web address] Urine Rbc 0-2 0 - 2 /HPF [email or web address] Urine Epithelial Few None Seen /HPF [email or web address] Cells GROUP LABORATORY Specimen Urine Performing Organization Address [facility] Phone Number [email or web address] [address] [phone] GC/CHLAMYDIA PCR ASSAY (06/29/2019 9:08 AM EDT) Chlamydia trachomatis Negative Negative [email or web address] PCR Assay LABORATORY Neisseria gonorrhoeae Negative Negative [email or web address] PCR Assay LABORATORY Specimen Urogenital Narrative Performed At This assay has not been evaluated in patients less [facility] than 14 years of age, in women, or in patients with a history of hysterectomy. The assay should not be used for the evaluation of suspected sexual abuse or for other medico-legal indications. Performing Organization Address [facility] Phone Number [email or web address] [address] [address] URINALYSIS (LAB) WITH REFLEX CULTURE (06/29/2019 9:08 AM EDT) Urine Color Yellow Yellow [facility] Urine Appearance Clear Clear [facility] Urine Glucose Negative Negative mg/dl [facility] Urine Bilirubin Negative Negative [facility] Urine Ketones Negative Negative [facility] Urine Specific 1.005 1.005 - 1.030 [facility] Urine Blood Negative Negative [facility] Urine Ph 6.0 5.0 - 8.0 [facility] Urine Protein Negative Negative mg/dl [facility] Urine Urobilinogen 0.2 0.2 - [address].0 [facility] E.U./DL GROUP LABORATORY Urine Nitrite Negative Negative [facility] Urine Leukocytes Moderate (A) Negative [facility] Specimen Urine Performing Organization Address [facility] Phone Number [facility] [address] [facility] [address] [place] [address] LIPASE (06/29/2019 9:08 AM EDT) Lipase 67 23 - 300 U/L [facility] Specimen Blood Performing Organization Address [facility] Phone Number [facility] [address] [address] COMPREHENSIVE METABOLIC PANEL (06/29/2019 9:08 AM EDT) Sodium 141 134 - 145 mmol/L [facility] Potassium 3.8 3.5 - 5.1 mmol/L [facility] Chloride 106 98 - 107 mmol/L [facility] CO2 25 22 - 30 mmol/L [facility] Calcium 9.6 8.3 - 10.1 mg/dl [facility] Albumin 4.3 3.5 - 5.0 g/dl [facility] BUN 7 (L) 9 - 20 mg/dl [facility] Creatinine 0.7 (L) 0.8 - 1.5 mg/dl [facility] Glucose 101 (H) 70 - 99 mg/dl [facility] Total Protein 7.8 6.3 - 8.2 g/dl [facility] Total Bilirubin 0.4 0.0 - 1.1 MG/DL [facility] AST 50 17 - 59 U/L [facility] ALT 51 21 - 72 U/L [facility] Alkaline 101 40 - 150 U/L [facility]ORY eGFR >[address] [facility] Comment: Below ml/min/1.73ml GROUP Sq LABORATORY [...] Study Equation which can be found at: https://www.kidney.org/content/zrbn-xppys-ohcxrbnx BUN/Creatinine 10 6 - 22 RATIO [facility] GROUP LABORATORY Anion Gap 10 3 - 11 mmol/L [facility] A/G Ratio 1.2 0.8 - 2.0 ratio [facility] Specimen Blood Performing Organization Address City/State/Zipcode Phone Number [facility] [address] [place] [address] CBC WITH DIFFERENTIAL (06/29/2019 9:08 AM EDT) WBC Count 10.84 (H) 4.23 - 9.07 K/uL [facility] RBC Count 5.11 4.30 - 5.89 M/UL [facility] Hemoglobin 14.7 13.7 - 17.5 g/dL [facility] Hematocrit 44.0 40.1 - 51.0 % [facility] MCV 86.1 79.0 - 92.2 FL [facility] MCH 28.8 25.7 - 32.2 PG [facility] MCHC 33.4 32.3 - 36.5 g/dL [facility] Platelet Count 258 163 - 337 K/uL [facility] MPV 10.3 9.4 - 12.4 FL [facility] RDW 13.5 11.6 - 14.4 % [facility] Neutrophil % 52.7 34.0 - 67.9 % [facility] Lymphocyte % 33.9 21.8 - 53.1 % [facility] Monocyte % 8.6 5.3 - 12.2 % [facility] Eosinophil % 2.9 0.8 - 7.0 % [facility] Basophil % 1.2 0.2 - 1.2 % [facility] nRBC % 0.0 0.0 - 0.2 % [facility] Neutrophil # 5.71 (H) 1.78 - 5.38 K/UL [facility] Lymphocyte # 3.68 (H) 1.32 - 3.57 K/UL [facility] Monocyte # 0.93 (H) 0.30 - 0.82 K/UL [facility] Eosinophil # 0.31 0.04 - 0.54 K/UL [facility] Basophil # 0.13 (H) 0.01 - 0.08 K/UL [facility] Immature Gran % 0.7 (H) 0.0 - 0.4 % [facility] Immature Gran # 0.08 (H) 0.00 - 0.03 K/uL [facility] NRBC # 0.00 0.00 - 0.12 K/uL [facility] Specimen Blood Performing Organization Address City/State/[facility] Phone Number [facility] [address] [address] [phone] documented in this encounter Visit Diagnoses Diagnosis Strain of lumbar region, initial encounter - Primary documented in this encounter Administered Medications Medication Order MAR Action Action Date Dose Rate Site normal saline bolus 1,000 mL New Bag 06/29/2019 9:44 AM EDT 1,000 mL 1,000 mL, Intravenous, BOLUS, 1 dose, 06/29/19 at 1000 documented in this encounter (Home) [address] [place], [place] (Work) [address] documented as of this encounter
--- OUTSIDE RECORDS SUMMARY | 2019-07-06 17:30 | XMS REPORT | Summary of Care ---
:1980 Author Organization [facility] [address] Address [address] [facility] [address] [address] Care Team Providers Name Role Phone Shad Uriostegui MD Primary Care Provider Reason for Visit Reason Comments ER F/U Patient was [place] [facility] [place] yesterday for palpitations caused by anxiety per ER doctor. Patient checked with Nathalie and it is not due to his thyroid medication. Encounter Details Date Type Department Care Team Description 06/24/2019 Office Visit [place] [facility] Shad Uriostegui, Ventricular ectopy (Primary Dx); Medicine Heart palpitations; [address] Essential hypertension; [place], [place] [id number] [place] [address] Routine general medical examination at a health care facility [phone] Allergies Active Allergy Reactions Severity Noted Date [...] Rash 08/30/2016 Pepcid Complete Rash 08/30/2016 Prednisone MEDIA PLANNER Reaction 08/23/2016 Prilosec Otc Rash 08/30/2016 Quinolones Rash 08/30/2016 Sertraline MEDIA PLANNER Reaction, Other High 08/23/2016 Sulfamethoxazole-Trimetho Other 03/23/2019 prim Trimethoprim Rash 01/30/2018 Albuterol Sulfate Other 12/07/2016 Not effective Zantac Rash Medium 11/26/2017 Bupropion Respiratory Reaction 08/30/2016 Hives documented as of this encounter (statuses as of 06/24/2019) Medications Medication Sig Dispensed Refills Start Date [...] METERED inhalation DAILY. DOSES) 220 MCG/INH LOT: [id number] Inhalation AEROSOL EXP: MARCH 27, 2020 POWDER, BREATH (2) ACTIVATED cetirizine (ZYRTEC) Take 1 Tab by 30 Tab 5 05/21/2019 Active 10 MG Oral Tab mouth DAILY. Losartan Potassium TAKE 1 TABLET BY 30 Tab 5 05/26/2019 Active 100 MG Oral Tab MOUTH EVERY DAY fluticasone (FLONASE) Dent 2 Sprays in 1 Bottle 5 06/03/2019 06/02/2020 Active 50 MCG/ACT Nasal nose DAILY. Suspension Additional information Patient taking differently: 2 Dent Nasal DAILY, Indications: causes headaches/migraines, Reported on 06/09/2019 2:15 PM metoprolol (LOPRESSOR) 25 Take 1 Tab by mouth THREE 60 Tab 1 06/24/2019 Active MG Oral Tab TIMES DAILY NEEDED (heart palpitaitons). Hospital, Clinic, or Other Ordered Dose Route Frequency Start Date End Date Status Facility Administered Medication ibuprofen (MOTRIN) tablet 600 mg PO Q6 HRS PRN 02/06/2019 Active 600 mg documented as of this encounter (statuses as of 06/24/2019) Active Problems Problem Noted Date Essential hypertension [...] disorder 08/15/2016 Overview: Therapist [facility] Mild intermittent asthma without complication 08/15/2016 Overview: [facility] 2012 JASWINDER on CPAP Overview: [facility] Professional Home Care- CPAP. AHI 35 on 07/23/17 NPSG through [facility] documented as of this encounter (statuses as of 06/24/2019) Resolved Problems Problem Noted Date Resolved Date Problem 03/03/2019 05/07/2019 Right wrist pain 12/09/2017 05/07/2019 Calculus of gallbladder without cholecystitis without 09/10/2016 10/04/2016 obstruction Gallbladder polyp 08/15/2016 10/04/2016 documented as of this encounter (statuses as of 06/24/2019) Immunizations Name Administration Dates Next Due Influenza [...] Sign Reading Time Taken Comments Blood Pressure 124/80 06/24/2019 11:04 AM EDT Pulse 74 06/24/2019 11:04 AM EDT Temperature - - Respiratory Rate - - Oxygen Saturation - - Inhaled Oxygen Concentration - - Weight 130.6 kg (288 lb) 06/24/2019 11:04 AM EDT Height 177.8 cm (5' 10") 06/24/2019 11:04 AM EDT Body Mass Index 41.32 06/24/2019 11:04 AM EDT documented in this encounter Patient Instructions Patient InstructionsShad Uriostegui MD - 06/24/2019 11:00 AM EDTHeart palpitations due to premature heart beats Use metoprolol three times daily As needed if you get heart palpitations Tb skin test today Nurse visit 48 hours documented in this encounter Progress Notes Shad Uriostegui MD - 06/24/2019 11:00 AM EDT PATIENT: Be Segovia : 1980 DATE OF SERVICE: 06/24/2019 CHIEF COMPLAINT: Chief Complaint Patient presents with ER F/U Patient was seen yesterday [place] [facility] yesterday for palpitations caused by anxiety per ER doctor. Patient checked with Nathalie and it is not due to his thyroid medication. Subjective HISTORY OF PRESENT ILLNESS: Be Segovia is a 38-y.o. male. HPI Here for follow up to [facility] emergency room for heart palpitations he has 1 hour spell no chest pain syncope no other cardiovascular symptoms he has just used clonazepam and he did not feel it was anxiety Er work up was negative and [facility] 2 range last night He has had extensive cardiovascular work up negative exercise stress test and holter in past showing ventricular ectopy but no other arrythmia Patient Active Problem List Diagnosis Extreme obesity Obstructive sleep apnea Hypothyroidism due to acquired atrophy of thyroid Generalized anxiety disorder Mild intermittent asthma without complication S/P laparoscopic cholecystectomy History of tobacco use Irritable bowel syndrome with both constipation and diarrhea Post-cholecystectomy syndrome Family history of early CAD JASWINDER on CPAP Carpal tunnel syndrome of right wrist S/P carpal tunnel release Trigger middle finger of right hand S/P nasal septoplasty Essential hypertension Seasonal allergies Family History Problem Relation Age of Onset Cancer Maternal Aunt stomach Cancer Maternal Grandmother lung Heart Maternal Grandmother [place] Cancer Other colon Hypertension Mother Hypertension Father [...] BEDTIME. fluticasone (FLONASE) 50 MCG/ACT Nasal Suspension Dent 2 Sprays in nose DAILY. (Patient taking differently: Dent 2 Sprays in nose DAILY. Indications: causes headaches/migraines) levothyroxine (SYNTHROID) 150 MCG Oral Tab Take 1 Tab by mouth BEFORE BREAKFAST. Losartan Potassium 100 MG Oral Tab TAKE 1 TABLET BY MOUTH EVERY DAY meclizine (ANTIVERT) 25 MG Oral Tab Take 1 Tab by mouth TWO TIMES DAILY NEEDED for dizziness/vertigo. metoprolol (LOPRESSOR) 25 MG Oral Tab Take 1 Tab by mouth THREE TIMES DAILY NEEDED (heart palpitaitons). mometasone furoate (ASMANEX 60 METERED DOSES) 220 MCG/INH Inhalation AEROSOL POWDER, BREATH ACTIVATED Take 2 Puffs by inhalation DAILY. LOT: [id number] EXP: MARCH 27, 2020 (2) Spacer/Aero Chamber Mouthpiece Does not apply Misc 1 Act by Does not apply route NEEDED (use with inhalor, wheezing). Current Facility-Administered Medications Medication ibuprofen (MOTRIN) tablet 600 mg Allergies Allergen Reactions Sertraline MEDIA PLANNER Reaction and Other Zantac Rash Advair Diskus Respiratory Reaction Avelox [Moxifloxacin] Rash Bactrim [Sulfamethoxazole W/Trimethoprim] Rash Biaxin [Clarithromycin] Other Pharmacist advised not to take it with Atorvastatin. Citalopram Other Codeine Respiratory Reaction Doxy Rash Doxycycline Rash Per pt report Dye Intravenous Radiographic Imaging Contrast Hives Itchy, hives Escitalopram Other Famotidine Rash Iv Dye [Ct Dye] Other Keflex Rash Lexapro Other Suicidal thoughts Morphine Respiratory Reaction Pantoprazole Rash Penicillins Rash Pepcid Complete Rash Prednisone MEDIA PLANNER Reaction Prilosec Otc Rash Quinolones Rash Sulfamethoxazole-Trimethoprim Other Trimethoprim Rash Ventolin [Albuterol Sulfate] Other Not [...] file Gets together: Not on file Attends jewish service: Not on file Active member of [...] 60 lbs Social History Narrative Lives in [place], [place] Lives alone no significant other Never No children 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 Physical Exam S1 and S2 normal, no murmurs, clicks, gallops or rubs. Regular rate and rhythm. Chest is clear; nowheezes or rales. No edema or JVD. KARSTEN 7 Score (generalized anxiety disorder) is: 05/17 ASSESSMENT / IMPRESSION: ICD-9-CM ICD-10-CM 1. Ventricular ectopy normal tsh work up negative in past reassurance and as needed metoprolol 427.69 I49.3 2. Heart palpitations 785.1 R00.2 3. Essential hypertension at goal continue current medications 401.9 I10 4. Routine general medical examination at a health care facility V70.0 Z00.00 Patient Instructions Heart palpitations due to premature heart beats Use metoprolol three times daily As needed if you get heart palpitations Tb skin test today Nurse visit 48 hours Shad Uriostegui MD 06/24/2019 11:28 documented in this encounter Plan of Treatment Date Type Specialty Care Team Description 06/30/2019 Ancillary Procedure Radiology 07/01/2019 Office Visit Orthopedics Percy Funes MD [address] [address] [phone] 07/06/2019 Office Visit Cardiology 09/03/2019 Office Visit Pulmonary Sandro Iyer MD [address] [place] [address] [phone] 03/09/2020 Office Visit Cardiology Jeanie Whitt CRNP [address] [place] [address] 04/21/2020 Office Visit Endocrinology Cheri Redmond FNP [address] [facility] [address] [address] documented as of this encounter Goals Goal Patient Goal Associated Recent Patient-Stated? Author Type Problems Progress Blood Pressure Blood Pressure 124/80 No Earl, < 140/90 (06/24/2019 NATALIYA Hurst 11:04 AM EDT) Note: This is an individualized [...] filedocumented in this encounter Visit Diagnoses Diagnosis Ventricular ectopy - Primary Other premature beats Heart palpitations Palpitations Essential hypertension Unspecified essential hypertension Routine general medical examination at a health care facility documented in this encounter (Home) [address] [facility] [place], [place] (Work) [address] documented as of this encounter
[2019-07-06 17:41] VITALS: BP 126/86
--- NOTE | 2019-07-06 17:56 | UC ---
Respiratory Complaint HPI - HPI Summary HPI Summary: 38 yo male present with sinus pain/pressure/congestion, post nasal drip, and intermittent cough for the last 4 days. He has been using flonase, his albuterol inhaler, and taking mucinex with little relief. He denies fever, chills, sore throat, SOB, rash, n/v. - History of Current Complaint Chief Complaint: UCRespiratory Stated Complaint: RESP COMPLAINT Time Seen by Provider: 07/06/19 17:51 Hx Obtained From: Patient Onset/Duration: Gradual Onset Severity Currently: Mild Pain Intensity: 2 Pain Scale Used: 0-10 Numeric - Allergies/Home Medications Allergies/Adverse Reactions: Allergies Allergy/AdvReac Type Severity Reaction Status Date / Time albuterol [From Ventolin HFA] Allergy Difficulty Verified 07/06/19 17:42 Breathing bupropion Allergy Difficulty Verified 07/06/19 17:42 Breathing cephalexin Allergy Rash Verified 07/06/19 17:42 citalopram [From Celexa] Allergy See Comment Verified 07/06/19 17:42 codeine Allergy Difficulty Verified 07/06/19 17:42 Breathing doxycycline Allergy Rash Verified 07/06/19 17:42 escitalopram [From Lexapro] Allergy See Comment Verified 07/06/19 17:42 famotidine Allergy Rash Verified 07/06/19 17:42 fluticasone Allergy Difficulty Verified 07/06/19 17:42 [From Advair Diskus] Breathing Iodinated Contrast Media Allergy Itching Verified 07/06/19 17:42 [Iodinated Contrast- Oral and IV Dye] moxifloxacin Allergy Hives Verified 07/06/19 17:42 nitrofurantoin Allergy Shortness Verified 07/06/19 17:42 of Breath omeprazole [From Prilosec] Allergy Rash Verified 07/06/19 17:42 Penicillins Allergy Rash Verified 07/06/19 17:42 Quinolones Allergy Rash Verified 07/06/19 17:42 salmeterol Allergy Difficulty Verified 07/06/19 17:42 [From Advair Diskus] Breathing sertraline [From Zoloft] Allergy Hallucinati Verified 07/06/19 17:42 ons sulfamethoxazole Allergy Rash Verified 07/06/19 17:42 [From Bactrim] trimethoprim [From Bactrim] Allergy Rash Verified 07/06/19 17:42 Home Medications: Home Medications Metoprolol Succinate [Metoprolol Succinate ER] 25 mg PO 07/06/19 [History] PMH/Surg Hx/FS Hx/Imm Hx Endocrine History: Hypothyroidism, Dyslipidemia Respiratory History: Asthma Psychological History: Anxiety Other History Of: Negative For: HIV, Hepatitis B, Hepatitis C, Anticoagulant Therapy - Surgical History Surgical History: Yes Surgery Procedure, Year, and Place: RIGHT ELBOW RECONSTRUCTION SURGERY 1983,. SLEEP APNEA SURGERY 2010 - Tonsilectomy, uvula, stretching throat. CHOLECYSTECTOMY - 09/10/16, deviated septum. carpal tunnel 2017. cicumcision with biopsy. Nasal septum surgery 03/20/2019. rt shoulder surgery-bone spurs removed and bursitis 04/10/19 - Family History Known Family History: Positive: Cardiac Disease - two uncles in their 40s, no primary relatives, Hypertension, Diabetes, Other - TIA on paternal side, cancer on both sides, blood clots, asthma Family History: FHx of seasonal allergies - both parents. TIA on paternal side, cancer on both sides, blood clots - Social History Lives: With Family Alcohol Use: None Substance Use Type: None Substance Use Comment - Amount & Last Used: benzo's in the past Smoking Status (MU): Former Smoker Type: Cigarettes Amount Used/How Often: 1/2 ppd Length of Time of Smoking/Using Tobacco: 15 yrs Have You Smoked in the Last Year: No When Did the Patient Quit Smoking/Using Tobacco: 2016 Household Exposure Type: Cigarettes - Immunization History Most Recent Influenza Vaccination: fall 2015 Most Recent Tetanus Shot: utd Most Recent Pneumonia Vaccination: fall 2015 Review of Systems All Other Systems Reviewed And Are Negative: No Constitutional: Positive: Negative, Fever Eyes: Positive: Negative ENT: Positive: Nasal Discharge, Sinus Congestion, Sinus Pain/Tenderness Respiratory: Positive: Cough Cardiovascular: Positive: Negative Gastrointestinal: Positive: Negative Neurovascular: Positive: Negative Neurological: Positive: Negative Psychological: Positive: Negative Physical Exam - Summary Physical Exam Summary: GENERAL: NAD. WDWN. No pain distress. SKIN: No rashes, sores, lesions, or open wounds. HEENT: Head: AT/NC Eyes: EOM intact. Conjunctiva clear without inflammation or discharge. Ears: Hearing grossly normal. TMs intact, no bulging, erythema, or edema. Nose: Nasal mucosa pink and moist. Mild TTP frontal sinus. Throat: Posterior oropharynx without exudates, erythema, or tonsillar enlargement. Uvula midline. NECK: Supple. Nontender. No lymphadenopathy. CHEST: CTAB. No r/r/w. No accessory muscle use. Breathing comfortably and in no distress. CV: RRR. Without m/r/g. Pulses intact. Cap refill <2seconds NEURO: Alert. PSYCH: Age appropriate behavior. Triage Information Reviewed: Yes Vital Signs: Initial Vital Signs Temp 98.3 F 07/06/19 17:39 Pulse 106 07/06/19 17:39 Resp 18 07/06/19 17:39 BP 126/86 07/06/19 17:39 Pulse Ox 98 07/06/19 17:39 Vital Signs Reviewed: Yes Respiratory Course/Dx - Course Course Of Treatment: Sinusitis. Discussed bacterial vs viral causes with the pt and he prefers to be on antibiotics at this time. - Differential Dx/Diagnosis Provider Diagnosis: Sinusitis Discharge ED - Sign-Out/Discharge Documenting (check all that apply): Patient Departure All imaging exams completed and their final reports reviewed: No Studies - Discharge Plan Condition: Stable Disposition: HOME Prescriptions: Azithromycin TAB* [Zithromax TAB (Z-SHANT) 250 mg #6 tabs] 2 tab PO .TODAY, THEN 1 DAILY #1 shant Patient Education Materials: Sinusitis (ED) Referrals: Shad Uriostegui MD [Primary Care Provider] - Additional Instructions: If you develop a fever, shortness of breath, chest pain, new or worsening symptoms - please call your PCP or go to the ED immediately. - Billing Disposition and Condition Condition: STABLE Disposition: Home
== END 2019-07-06 18:00 | disposition home or self-care (01) ==
LOC: UCEAST 17:23
DX: J32.9 Chronic sinusitis, unspecified (principal); E03.9 Hypothyroidism, unspecified; E78.5 Hyperlipidemia, unspecified; J45.909 Unspecified asthma, uncomplicated; F41.9 Anxiety disorder, unspecified; Z87.891 Personal history of nicotine dependence; Z88.0 Allergy status to penicillin; Z88.2 Allergy status to sulfonamides; Z88.5 Allergy status to narcotic agent
CPT/HCPCS: 99212; G0463

== ENCOUNTER 2019-08-11 13:25 | Emergency (ER) | payer OTHER ==
[2019-08-11 13:46] VITALS: BP 128/88
--- NOTE | 2019-08-11 14:41 | UC ---
Respiratory Complaint HPI - HPI Summary HPI Summary: 38-year-old male presents with 4 day history of nasal congestion, head congestion, sore throat, chest congestion, and a nonproductive cough. History of asthma. States has been using his albuterol inhaler 2-3 times a day which is typical for him. Denies fever, chills, ear pain, dysphagia, chest pain, abdominal pain, nausea, or vomiting. - History of Current Complaint Chief Complaint: UCGeneralIllness Stated Complaint: CHEST CONGESTION Time Seen by Provider: 08/11/19 14:35 Hx Obtained From: Patient Pain Intensity: 4 - Allergies/Home Medications Allergies/Adverse Reactions: Allergies Allergy/AdvReac Type Severity Reaction Status Date / Time albuterol [From Ventolin HFA] Allergy Difficulty Verified 08/11/19 13:47 Breathing bupropion Allergy Difficulty Verified 08/11/19 13:47 Breathing cephalexin Allergy Rash Verified 08/11/19 13:47 citalopram [From Celexa] Allergy See Comment Verified 08/11/19 13:47 codeine Allergy Difficulty Verified 08/11/19 13:47 Breathing doxycycline Allergy Rash Verified 08/11/19 13:47 escitalopram [From Lexapro] Allergy See Comment Verified 08/11/19 13:47 famotidine Allergy Rash Verified 08/11/19 13:47 fluticasone Allergy Difficulty Verified 08/11/19 13:47 [From Advair Diskus] Breathing Iodinated Contrast Media Allergy Itching Verified 08/11/19 13:47 [Iodinated Contrast- Oral and IV Dye] moxifloxacin Allergy Hives Verified 08/11/19 13:47 nitrofurantoin Allergy Shortness Verified 08/11/19 13:47 of Breath omeprazole [From Prilosec] Allergy Rash Verified 08/11/19 13:47 Penicillins Allergy Rash Verified 08/11/19 13:47 Quinolones Allergy Rash Verified 08/11/19 13:47 salmeterol Allergy Difficulty Verified 08/11/19 13:47 [From Advair Diskus] Breathing sertraline [From Zoloft] Allergy Hallucinati Verified 08/11/19 13:47 ons sulfamethoxazole Allergy Rash Verified 08/11/19 13:47 [From Bactrim] trimethoprim [From Bactrim] Allergy Rash Verified 08/11/19 13:47 PMH/Surg Hx/FS Hx/Imm Hx Endocrine History: Thyroid Disease, Dyslipidemia Cardiovascular History: Hypertension Respiratory History: Asthma Other History Of: Negative For: HIV, Hepatitis B, Hepatitis C, Anticoagulant Therapy - Surgical History Surgical History: Yes Surgery Procedure, Year, and Place: RIGHT ELBOW RECONSTRUCTION SURGERY 1983,. SLEEP APNEA SURGERY 2010 - Tonsilectomy, uvula, stretching throat. CHOLECYSTECTOMY - 09/10/16, deviated septum. carpal tunnel 2017. cicumcision with biopsy. Nasal septum surgery 03/20/2019. rt shoulder surgery-bone spurs removed and bursitis 04/10/19 - Family History Known Family History: Positive: Cardiac Disease - two uncles in their 40s, no primary relatives, Hypertension, Diabetes, Other - TIA on paternal side, cancer on both sides, blood clots, asthma Family History: FHx of seasonal allergies - both parents. TIA on paternal side, cancer on both sides, blood clots - Social History Occupation: Employed Full-time Lives: With Family Alcohol Use: None Substance Use Type: None Substance Use Comment - Amount & Last Used: benzo's in the past Smoking Status (MU): Former Smoker Type: Cigarettes Amount Used/How Often: 1/2 ppd Length of Time of Smoking/Using Tobacco: 15 yrs Have You Smoked in the Last Year: No When Did the Patient Quit Smoking/Using Tobacco: 2016 Household Exposure Type: Cigarettes - Immunization History Most Recent Influenza Vaccination: fall 2015 Most Recent Tetanus Shot: utd Most Recent Pneumonia Vaccination: fall 2015 Review of Systems All Other Systems Reviewed And Are Negative: Yes Constitutional: Negative: Fever, Chills Skin: Negative: Rash Eyes: Negative: Drainage, Eye Redness ENT: Positive: Sore Throat, Nasal Discharge, Sinus Congestion. Negative: Ear Ache, Sinus Pain/Tenderness Respiratory: Positive: Cough. Negative: Shortness Of Breath Cardiovascular: Negative: Palpitations, Chest Pain Gastrointestinal: Negative: Abdominal Pain, Vomiting, Diarrhea, Nausea Genitourinary: Positive: Negative Musculoskeletal: Positive: Negative Neurological: Positive: Negative Is Patient Immunocompromised?: No Physical Exam - Summary Physical Exam Summary: GENERAL APPEARANCE: Well developed, well nourished, alert and cooperative, and appears to be in no acute distress. EYES: Conjunctiva clear. No drainage. EARS: External auditory canals and tympanic membranes clear, hearing grossly intact. NOSE: Mild nasal congestion. No nasal discharge. THROAT: Pharynx normal. Tonsils surgically absent. NECK: Neck supple, non-tender without lymphadenopathy. CARDIAC: Normal S1 and S2. No S3, S4 or murmurs. Rhythm is regular. There is no peripheral edema, cyanosis or pallor. Extremities are warm and well perfused. Capillary refill is less than 2 seconds. Peripheral pulses intact. LUNGS: Clear to auscultation without rales, rhonchi, wheezing or diminished breath sounds. Dry non-productive cough. ABDOMEN: Positive bowel sounds. Soft, nondistended, nontender. No guarding or rebound. No masses or hepatosplenomegally. MUSKULOSKELETAL: ROM intact to all extremities. No joint erythema or tenderness. Normal muscular development. Normal gait. SKIN: Skin normal color, texture and turgor with no lesions or eruptions. Triage Information Reviewed: Yes Vital Signs: Initial Vital Signs Temp 98.7 F 08/11/19 13:42 Pulse 85 08/11/19 13:42 Resp 18 08/11/19 13:42 BP 128/88 08/11/19 13:42 Pulse Ox 99 08/11/19 13:42 Vital Signs Reviewed: Yes Respiratory Course/Dx - Course Course Of Treatment: 38-year-old male presents with 4 day history of nasal congestion, head congestion, sore throat, chest congestion, and a nonproductive cough. History of asthma. States has been using his albuterol inhaler 2-3 times a day which is typical for him. Denies fever, chills, ear pain, dysphagia, chest pain, abdominal pain, nausea, or vomiting. Afebrile. Vital signs stable. Patient had mild nasal congestion, clear bilateral breath sounds, a dry nonproductive cough, and otherwise unremarkable exam. I discussed with the patient that his symptoms were most likely of viral origin especially considering the lack of fever and short duration of symptoms however the patient is requesting treatment with an antibiotic at this time. I went over the risks and benefits of treating an antibiotic especially if this is a viral origin. Patient verbalizes understanding and continues to request an antibiotic. I will treat course of azithromycin as well as recommend symptomatic treatment for an acute bronchitis at this time. He is to follow-up with his primary care provider in 3 days especially if symptoms are not improving. Anticipatory guidance and warning symptoms reviewed of the patient. Verbalizes understanding and agrees with plan of care. - Differential Dx/Diagnosis Differential Diagnosis/HQI/PQRI: Asthma, Bronchitis, Exacerbation Of COPD, Lower Resp Infection, Sinusitis Provider Diagnosis: Bronchitis Discharge ED - Sign-Out/Discharge Documenting (check all that apply): Patient Departure All imaging exams completed and their final reports reviewed: No Studies - Discharge Plan Condition: Stable Disposition: HOME Prescriptions: Azithromyxin SHANT (NF) [Z-Shant (Zithromax) 250 mg tabs #6] 2 tab PO .TODAY, THEN 1 DAILY #6 tab Patient Education Materials: Acute Bronchitis (ED) Referrals: Shad Uriostegui MD [Primary Care Provider] - 3 Days Additional Instructions: Your history and exam are consistent with acute bronchitis. As we discussed bronchitis is most often caused by a viral infection however you have elected to treat with an antibiotic. Start azithromycin 2 tabs today then 1 tab a day for next 4 days. Continue to use your albuterol inhaler as needed. Get plenty of rest. Drink plenty of fluids. Run a cool mist humidifer in your room at night. Take over the counter acetaminophen (Tylenol) or ibuprofen (Advil, Motrin) according to directions as needed for pain or fever. Follow up with your primary care provider in 3 days especially if symptoms do not improve. Seek immediate medical attention in the emergency room if you have fever greater than 100.5 F despite taking acetaminophen or ibuprofen, have chest pain , difficulty breathing, or have any worsening of symptoms. - Billing Disposition and Condition Condition: STABLE Disposition: Home - Attestation Statements Provider Attestation: Per institutional requirements, I have reviewed the chart, however, I was not consulted specifically or made aware of this patient by the midlevel provider. I did not personally evaluate, interact with , or disposition this patient.
== END 2019-08-11 14:56 | disposition home or self-care (01) ==
LOC: UCEAST 13:25
DX: J45.909 Unspecified asthma, uncomplicated (principal); R09.81 Nasal congestion; Z79.899 Other long term (current) drug therapy; Z88.8 Allergy status to other drugs, medicaments and biological substances; Z88.1 Allergy status to other antibiotic agents; Z88.5 Allergy status to narcotic agent; Z91.041 Radiographic dye allergy status; Z88.2 Allergy status to sulfonamides; Z87.891 Personal history of nicotine dependence
CPT/HCPCS: 99212; G0463

== ENCOUNTER 2019-09-06 07:47 | Emergency (ER) | payer OTHER ==
--- OUTSIDE RECORDS SUMMARY | 2019-09-06 07:55 | XMS REPORT | Summary of Care ---
:1980 Author Organization [facility] Address [address] [place] [address] Care Team Providers Name Role Phone Shad Uriostegui Primary Care Provider Reason for Referral MRI/CAT/PET Scan (Routine) Status Reason Specialty Diagnoses / Referred By Referred To Procedures Contact Contact Authorized Diagnoses RLQ abdominal pain [place], [place], Procedures US ABDOMEN LIMITED PA-C [address] [place] [address] Reason for Visit Reason Comments Abdominal Pain Lower right abd pain comes and goes, pt has noticed this has been happening for the past 3 weeks. Pt states he is also feeling sick, cough, chest congestion, sinus pain Encounter Details Date Type Department Care Team Description 08/20/2019 Office Visit [facility] Matias, RLQ abdominal pain ( Primary Dx); Practice PA-C Hypothyroidism due to acquired atrophy of thyroid [address] [place] [address] [place] [address] [phone] Allergies Active Allergy Reactions Severity Noted Date [...] Rash 08/30/2016 Pepcid Complete Rash 08/30/2016 Prednisone MARBLE CLEANER Reaction 08/23/2016 Prilosec Otc Rash 08/30/2016 Quinolones Rash 08/30/2016 Sertraline MARBLE CLEANER Reaction, Other High 08/23/2016 Sulfamethoxazole-Trimetho Other 03/23/2019 prim Trimethoprim Rash 01/30/2018 Albuterol Sulfate Other 12/07/2016 Not effective Zantac Rash Medium 11/26/2017 Bupropion Respiratory Reaction 08/30/2016 Hives documented as of this encounter (statuses as of 08/20/2019) Medications Medication Sig Dispensed Refills Start End Date Status Date clonazePAM Take 3 mg by 0 Active (KLONOPIN) 1 MG mouth EVERY Oral Tab BEDTIME. Spacer/Aero Chamber 1 Act by Does 1 Device 0 Active Mouthpiece Does not not apply 9 apply Misc route NEEDED (use with inhalor, wheezing). cetirizine (ZYRTEC) Take 1 Tab by 30 Tab 5 Active 10 MG Oral Tab mouth DAILY. 9 Losartan Potassium TAKE 1 TABLET 30 Tab 5 Active 100 MG Oral Tab BY MOUTH 9 EVERY DAY meclizine Take 1 Tab by 90 Tab 0 Active (ANTIVERT) 25 MG mouth TWO 9 Oral Tab TIMES DAILY NEEDED for dizziness/asim tigo. albuterol HFA INHALE 2 8.5 Inhaler 3 Active (VENTOLIN) 108 (90 PUFFS BY 9 Base) MCG/ACT MOUTH EVERY 4 Inhalation Aero HOURS SolnIndications: NEEDED FOR Mild intermittent WHEEZING asthma with acute exacerbation fluticasone [place] 2 1 Bottle 5 07/23/20 Active (FLONASE) 50 Sprays in 9 20 MCG/ACT Nasal nose DAILY. 2 Suspension sprays each nostril daily atorvastatin Take 1 Tab by 90 Tab 1 Active (LIPITOR) 40 MG mouth DAILY. 9 Oral TabIndications: Mixed hyperlipidemia metoprolol Take 1 Tab by 60 Tab 1 Active (LOPRESSOR) 25 MG mouth THREE 9 Oral Tab TIMES DAILY NEEDED (heart palpitaitons) . levothyroxine Take 1 Tab by 30 Tab 4 Active (SYNTHROID) 150 MCG mouth BEFORE 9 Oral Tab BREAKFAST. levothyroxine Take 1 Tab by 30 Tab 4 08/20/20 Discontinued (SYNTHROID) 150 MCG mouth BEFORE 9 19 (Reorder) Oral Tab BREAKFAST. Hospital, Clinic, or Other Ordered Dose Route Frequency Start Date End Date Status Facility Administered Medication ibuprofen (MOTRIN) tablet 600 mg PO Q6 HRS PRN 02/06/2019 Active 600 mg documented as of this encounter (statuses as of 08/20/2019) Active Problems Problem Noted Date Essential hypertension [...] 08/15/2016 Generalized anxiety disorder 08/15/2016 Overview: Therapist [facility] Mild intermittent asthma without complication 08/15/2016 [facility] JAS[facility] Overview: [facility]- CPAP. AHI 35 on 07/23/17 NPSG through [facility] documented as of this encounter (statuses as of 08/20/2019) Resolved Problems Problem Noted Date Resolved Date Problem 03/03/2019 05/07/2019 Right wrist pain 12/09/2017 05/07/2019 Calculus of gallbladder without cholecystitis without 09/10/2016 10/04/2016 obstruction Gallbladder polyp 08/15/2016 10/04/2016 documented as of this encounter (statuses as of 08/20/2019) Immunizations Name Administration Dates Next Due Influenza (IM) Preservative Free 08/06/2019, 11/06/2018, 07/16/2017, 08/15/2016, 08/16/2015 MMR VACCINE 02/16/2019, 01/12/2019 PNEUMOCOCCAL POLYSACCHARIDE VACCINE 11/06/2016 Pneumococcal Conjugate(13 Valent) 08/15/2016 TDAP Vaccine 12/09/2018 documented as of this encounter Social History Tobacco Use Types Packs/Day Years Used Date Former Smoker 0 Smokeless Tobacco: Never Used Alcohol Use Drinks/Week [...] Sign Reading Time Taken Comments Blood Pressure 132/78 08/20/2019 7:51 AM EDT Pulse 89 08/20/2019 7:51 AM EDT Temperature - - Respiratory Rate - - Oxygen Saturation 97% 08/20/2019 7:51 AM EDT Inhaled Oxygen Concentration - - Weight 132.4 kg (291 lb 12.8 oz) 08/20/2019 7:51 AM EDT Height 177.8 cm (5' 10") 08/20/2019 7:51 AM EDT Body Mass Index 41.87 08/20/2019 7:51 AM EDT documented in this encounter Patient Instructions Patient InstructionsLove Matias PA-C - 08/20/2019 7:40 AM EDT1. Discussed with patient, could be appendicitis, or hernia Ordered US -- need approval from insurance, PSS will call once she gets approval and schedule US [place] diet, no heavy lifting Ordered labs -- will do now -- will call with results 2. Ordered labs -- escribed refill of levothyroxine documented in this encounter Progress Notes Love Matias PA-C - 08/20/2019 7:40 AM EDT PATIENT: Be Segovia : 1980 DATE OF SERVICE: 08/20/2019 REFERRING PRACTITIONER: Shad Uriostegui PRIMARY CARE PROVIDER: Shad Uriostegui CHIEF COMPLAINT: Chief Complaint Patient presents with Abdominal Pain Lower right abd pain comes and goes, pt has noticed this has been happening for the past 3 weeks. Pt states he is also feeling sick, cough, chest congestion , sinus pain Subjective HISTORY OF PRESENT ILLNESS: Be Segovai is a 38-y.o. male who presents with intermittent RLQ pain and nausea x 3 weeks No pain right now No recent injury or strenuous activity Heat gives some relief Denies lump in groin area Moving bowels normally Also coughing, chest congestion, sinus pain x 1 week Went to [facility] urgent care 08/11/19 diagnosed with bronchitis, prescribed Zpak -- finished full course 3 days ago Needs refill of synthroid -- has hypothyroidism Denies fever, chills, vomiting, diarrhea, chest pains, SOB Past Medical History: Diagnosis Date Anxiety Asthma Cardiac dysrhythmia Disorder of thyroid Dizziness GERD (gastroesophageal reflux disease) Headache disorder High cholesterol Hypertension Hypothyroidism JASWINDER on CPAP pt uses a bipap Osteoarthritis Otitis media Sinusitis, chronic Past Surgical History: Procedure Laterality Date ARTHROSCOPY, SHOULDER ACROMIOPLASTY, DISTAL CLAVICLE Right 04/10/2019 Procedure: RIGHT SHOULDER ARTHROSCOPIC SUBACROMIAL DECOMPRESSION ; Surgeon: Percy Funes MD; Location: [facility] MAIN OR CARPAL TUNNEL RELEASE Right CIRCUMCISION EGD N/A 11/26/2017 Procedure: EGD with biopsies; Surgeon: Brianda Fairbanks MD; Location: [facility] MAIN OR ELBOW ARTHROPLASTY NEC Right LAPAROSCOPIC CHOLECYSTECTOMY N/A 09/10/2016 Procedure: LAPAROSCOPIC CHOLECYSTECTOMY; Surgeon: Mars Nicholas MD; Location: [facility] MAIN OR NASAL SINUS OPERATIONS [place] RECONSTR NOSE+JIMENEZ SEPTAL REPAIR N/A 03/20/2019 Procedure: SEPTORHINOPLASTY, REDUCTION OF INFERIOR TURBINATES; Surgeon: Zechariah Suggs Jr., MD; Location: [facility] MAIN OR [place] REMOVAL GALLBLADDER 2016 [place] REMOVE TONSILS/ADENOIDS,12+ Y/O tonsillectomy [place] REVISE MEDIAN N/CARPAL TUNNEL SURG Right 01/15/2018 Procedure: RELEASE CARPAL TUNNEL/RIGHT CARPAL TUNNEL RELEASE; Surgeon: Abelardo Alvarado MD; Location: [facility] MAIN OR TONSILLECTOMY Family History Problem Relation Age of Onset Cancer Maternal Aunt stomach Cancer Maternal Grandmother lung Heart Maternal Grandmother [place] Cancer Other colon Hypertension Mother Hypertension Father High Cholesterol Father Anesth Problems No family history Arthritis No family history Clotting Disorder No family history Diabetes No family history Heart Disease No family history Kidney Disease No family history Thyroid Disease No family history Current Outpatient Medications Medication Sig albuterol HFA (VENTOLIN) 108 (90 Base) MCG/ACT Inhalation Aero Soln INHALE 2 PUFFS BY MOUTH EVERY 4 HOURS NEEDED FOR WHEEZING atorvastatin (LIPITOR) 40 MG Oral Tab Take 1 Tab by mouth DAILY. cetirizine (ZYRTEC) 10 MG Oral Tab Take 1 Tab by mouth DAILY. clonazePAM (KLONOPIN) 1 MG Oral Tab Take 3 mg by mouth EVERY BEDTIME. fluticasone (FLONASE) 50 MCG/ACT Nasal Suspension [place] 2 Sprays in nose DAILY. 2 sprays eachnostril daily levothyroxine (SYNTHROID) 150 MCG Oral Tab Take 1 Tab by mouth BEFORE BREAKFAST. Losartan Potassium 100 MG Oral Tab TAKE 1 TABLET BY MOUTH EVERY DAY meclizine (ANTIVERT) 25 MG Oral Tab Take 1 Tab by mouth TWO TIMES DAILY NEEDED for dizziness/vertigo. metoprolol (LOPRESSOR) 25 MG Oral Tab Take 1 Tab by mouth THREE TIMES DAILY NEEDED (heart palpitaitons). Spacer/Aero Chamber Mouthpiece Does not apply Misc 1 Act by Does not apply route NEEDED (use with inhalor, wheezing). Current Facility-Administered Medications Medication ibuprofen (MOTRIN) tablet 600 mg Allergies Allergen Reactions Sertraline MARBLE CLEANER Reaction and Other Zantac Rash Advair Diskus [...] Rash Penicillins Rash Pepcid Complete Rash Prednisone MARBLE CLEANER Reaction Prilosec Otc Rash Quinolones Rash Sulfamethoxazole-Trimethoprim [...] file Tobacco Use Smoking status: Former Smoker Packs/day: 0.00 Smokeless tobacco: Never Used Substance and Sexual Activity Alcohol use: No Binge frequency: Never Drug use: No Sexual activity: Never Lifestyle Physical activity: Days per week: Not on file Minutes per session: Not on file Stress: Not on file Relationships Social connections: Talks on phone: Not on file Gets together: Not on file Attends cheondoism service: Not on file Active member of [...] 60 lbs Social History Narrative Lives in [place], [place] Lives alone no significant other Never No children 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 Positive asthma Cardiovascular: negative chest pain Gastrointestinal: positive intermittent RLQ abdominal pain, nausea. Negative constipation, diarrhea or vomiting Genitourinary: negative burning on urination, dysuria Musculoskeletal: positive arthritis/joint pain Neurologic: negative numbness or tingling of feet or hands Psychiatric: positive anxiety Hematologic/Lymphatic/Immunologic: negative allergies Endocrine: positive hypothyroidism Objective PHYSICAL EXAMINATION: VITALS: BP 132/78 (BP Location: Right arm, Patient Position: Sitting) | Pulse 89 | Ht 5' 10" (1.778 m) | Wt 291 lb 12.8 oz (132.4 kg) | SpO2 97% | BMI 41.87 kg/m Body mass index is 41.87 kg/m. General appearance: alert, mild distress, cooperative, oriented times 3, morbidly obese Skin: Skin color, texture, turgor normal. No rashes or lesions. Head: Normocephalic. No masses, lesions, tenderness or abnormalities Eyes: conjunctivae/corneas clear. PERRL, EOM's intact. Ears: positive findings: TMs bulging mildly bilaterally Nose/Sinuses: positive findings: mucosa erythematous, no rhinorrhea Oropharynx: positive findings: mild oropharyngeal erythema, post nasal drip present Neck: Neck supple, FROM. No cervical or supraclavicular adenopathy. Lungs: Lungs clear. Chest symmetrical. Normal breath sounds. Heart: RRR. No murmur, clicks or gallops. No peripheral edema ABDOMEN: soft, tenderness with moderate palpation RLQ. Bowel sounds normal. No masses, no organomegaly. .. . IMPRESSION: ICD-9-CM ICD-10-CM 1. RLQ abdominal pain 789.03 R10.31 US ABDOMEN LIMITED COMPREHENSIVE METABOLIC PANEL CBC WITH DIFFERENTIAL LIPASE AMYLASE AMYLASE LIPASE CBC WITH DIFFERENTIAL COMPREHENSIVE METABOLIC PANEL 2. Hypothyroidism due to acquired atrophy of thyroid 244.8 E03.4 THYROID STIMULATING HORMONE 246.8 THYROID STIMULATING HORMONE Plan PLAN: 1. Discussed with patient, could be appendicitis, or hernia Ordered US -- need approval from insurance, PSS will call once she gets approval and schedule US [place] diet, no heavy lifting Ordered labs -- will do now -- will call with results 2. Ordered labs -- escribed refill of levothyroxine Author: Love Matias PA-C 08/20/2019 07:48 documented in this encounter Plan of Treatment Date Type Specialty Care Team Description 08/21/2019 Office Visit Orthopedics Abelardo Alvarado MD [address] [place], [place] [id number] [phone] 09/03/2019 Office Visit Pulmonary Sandro Iyer MD [address] [place] [address] [phone] 09/30/2019 Office Visit Endocrinology Cheri Redmond, SENIOR NETWORK SECURITY ENGINEER [facility] [id number] 03/09/2020 Office Visit Cardiology Jeanie Whitt CRNP [address] [id number] 04/21/2020 Office Visit Endocrinology Cheri Redmond, SENIOR NETWORK SECURITY ENGINEER [address] [facility] [place] [phone] Name Type Priority Associated Diagnoses Date/Time COMPREHENSIVE METABOLIC Lab Routine RLQ abdominal pain 08/20/2019 8:13 AM PANEL EDT CBC WITH DIFFERENTIAL Lab Routine RLQ abdominal pain 08/20/2019 8:13 AM EDT THYROID STIMULATING Lab Routine Hypothyroidism due to 08/20/2019 8:13 AM HORMONE acquired atrophy of EDT thyroid LIPASE Lab Routine RLQ abdominal pain 08/20/2019 8:13 AM EDT AMYLASE Lab Routine RLQ abdominal pain 08/20/2019 8:13 AM EDT Name Type Priority Associated Diagnoses Order Schedule US ABDOMEN LIMITED Imaging Routine RLQ abdominal pain Expected: 08/20/2019, Expires: 08/19/2020 COMPREHENSIVE METABOLIC Lab Routine RLQ abdominal pain Expected: PANEL 08/20/2019 (Approximate), Expires: 08/20/2020 CBC WITH DIFFERENTIAL Lab Routine RLQ abdominal pain Expected: 08/20/2019 (Approximate), Expires: 08/20/2020 THYROID STIMULATING Lab Routine Hypothyroidism due to Expected: HORMONE acquired atrophy of 08/20/2019 thyroid (Approximate), Expires: 08/20/2020 LIPASE Lab Routine RLQ abdominal pain Expected: 08/20/2019 (Approximate), Expires: 08/20/2020 AMYLASE Lab Routine RLQ abdominal pain Expected: 08/20/2019 (Approximate), Expires: 08/20/2020 documented as of this encounter Goals Goal Patient Goal Associated Recent Patient-Stated? Author Type Problems Progress Blood Pressure Blood Pressure 132/78 No Earl, < 140/90 (08/20/2019 NATALIYA Hurst 7:51 AM EDT) Note: This is an individualized treatment (blood pressure) goal for Be Segovia: Displayed above (on the left) is your goal for blood pressure control. Your most recent blood pressure is also shown above, on the right. You should try to achieve blood pressures that are lower than your goal listed above (on the left). Work with your Dry Placer Machine Operator General Love Solis PA-C Note: This is an individualized treatment (frequent ED use) goal for Be Segovia: Please work with your Dry Placer Machine Operator, who will assist you in meeting your goals of care. Weight loss vs. 18 mo Lifestyle 6.2 (08/20/2019 7:51 AM Natali Jones FNP max (lbs) >= 10 EDT) Note: This is an individualized lifestyle goal for Be Segovia: Your body mass index (BMI) is more than 30. You should lose weight. A reasonable starting goal is to lose 10 pounds. Displayed above is how many pounds you have lost thus far towards your 10 pound weight loss goal. Regular appointments with primary care Lifestyle Loev Solis PA- C provider (PCP) Note: This is an individualized lifestyle goal for eB Segovia: Please schedule regular visits with your primary care provider (PCP). Care provided in your PCP's office can help reduce your need for additional trips to the Emergency Room. Take all prescribed medications as Self-management Natali [...] filedocumented in this encounter Visit Diagnoses Diagnosis RLQ abdominal pain - Primary Abdominal pain, right lower quadrant Hypothyroidism due to acquired atrophy of thyroid documented in this encounter (Home) [address] [phone] [place], [place] (Work) [id number] documented as of this encounter
--- OUTSIDE RECORDS SUMMARY | 2019-09-06 07:55 | XMS REPORT | Summary of Care ---
:1980 Author Organization [facility] Address [address] [facility] [place] [address] Care Team Providers Name Role Phone GuaynaboShad Kavon Primary Care Provider Reason for Visit Reason Comments Insomnia Cough Encounter Details Date Type Department Care Team Description 09/02/2019 Office Visit [place] [facility] Stephenie Zaragoza, Acute URI (Primary Dx); Practice [employer] Sleep disturbance [address] [place] [address] [place] [address] [phone] Allergies Active Allergy Reactions Severity Noted Date [...] Rash 08/30/2016 Pepcid Complete Rash 08/30/2016 Prednisone CHILD CARE CENTER ADMINISTRATOR Reaction 08/23/2016 Prilosec Otc Rash 08/30/2016 Quinolones Rash 08/30/2016 Sertraline CHILD CARE CENTER ADMINISTRATOR Reaction, Other High 08/23/2016 Sulfamethoxazole-Trimetho Other 03/23/2019 prim Trimethoprim Rash 01/30/2018 Albuterol Sulfate Other 12/07/2016 Not effective Zantac Rash Medium 11/26/2017 Bupropion Respiratory Reaction 08/30/2016 Hives documented as of this encounter (statuses as of 09/02/2019) Medications Medication Sig Dispensed Refills Start Date End Date Status clonazePAM (KLONOPIN) Take 3 mg by 0 Active 1 MG Oral Tab mouth EVERY BEDTIME. Spacer/Aero Chamber 1 Act by Does 1 Device 0 04/23/2019 Active Mouthpiece Does not not apply route apply Misc NEEDED (use with inhalor, wheezing). cetirizine (ZYRTEC) Take 1 Tab by 30 Tab 5 05/21/2019 Active 10 MG Oral Tab mouth DAILY. Losartan Potassium TAKE 1 TABLET 30 Tab 5 05/26/2019 Active 100 MG Oral Tab BY MOUTH EVERY DAY meclizine (ANTIVERT) Take 1 Tab by 90 Tab 0 06/30/2019 Active 25 MG Oral Tab mouth TWO TIMES DAILY NEEDED for dizziness/verti go. albuterol HFA INHALE 2 PUFFS 8.5 Inhaler 3 07/03/2019 Active (VENTOLIN) 108 (90 BY MOUTH EVERY Base) MCG/ACT 4 HOURS Inhalation Aero NEEDED FOR SolnIndications: Mild WHEEZING intermittent asthma with acute exacerbation fluticasone (FLONASE) [place] 2 Sprays 1 Bottle 5 07/24/2019 07/23/2020 Active 50 MCG/ACT Nasal in nose DAILY. Suspension 2 sprays each nostril daily atorvastatin Take 1 Tab by 90 Tab 1 08/17/2019 Active (LIPITOR) 40 MG Oral mouth DAILY. TabIndications: Mixed hyperlipidemia metoprolol Take 1 Tab by 60 Tab 1 08/17/2019 Active (LOPRESSOR) 25 MG mouth THREE Oral Tab TIMES DAILY NEEDED (heart palpitaitons). levothyroxine Take 1 Tab by 30 Tab 4 08/20/2019 Active (SYNTHROID) 150 MCG mouth BEFORE Oral Tab BREAKFAST. trazodone (DESYREL) Take 1 Tab by 30 Tab 0 09/02/2019 Active 50 MG Oral mouth EVERY TabIndications: Sleep BEDTIME disturbance NEEDED (sleep). Hospital, Clinic, or Other Ordered Dose Route Frequency Start Date End Date Status Facility Administered Medication ibuprofen (MOTRIN) tablet 600 mg PO Q6 HRS PRN 02/06/2019 Active 600 mg documented as of this encounter (statuses as of 09/02/2019) Active Problems Problem Noted Date Essential hypertension [...] 08/15/2016 Generalized anxiety disorder 08/15/2016 Overview: Therapist [facility] Mild intermittent asthma without complication 08/15/2016 Overview: [facility] 2011 JASWINDER on CPAP Overview: [facility]- CPAP. AHI 35 on 07/23/17 NPSG through [facility] documented as of this encounter (statuses as of 09/02/2019) Resolved Problems Problem Noted Date Resolved Date Problem 03/03/2019 05/07/2019 Right wrist pain 12/09/2017 05/07/2019 Calculus of gallbladder without cholecystitis without 09/10/2016 10/04/2016 obstruction Gallbladder polyp 08/15/2016 10/04/2016 documented as of this encounter (statuses as of 09/02/2019) Immunizations Name Administration Dates Next Due Influenza [...] Sign Reading Time Taken Comments Blood Pressure 148/70 09/02/2019 11:18 AM EST Pulse 84 09/02/2019 11:18 AM EST Temperature 36.4 09/02/2019 11:18 AM EST C (97.6 F) Respiratory Rate - - Oxygen Saturation 96% 09/02/2019 11:18 AM EST Inhaled Oxygen Concentration - - Weight 130.2 kg (287 lb) 09/02/2019 11:18 AM EST Height 177.8 cm (5' 10") 09/02/2019 11:18 AM EST Body Mass Index 41.18 09/02/2019 11:18 AM EST documented in this encounter Patient Instructions Patient InstructionsStephenie Zaragoza FNP - 09/02/2019 11:20 AM ESTUse inhaler as needed for cough and Short of breath Salt water gargles as needed Delsym as needed for cough Trial Trazodone at bedtime for sleep documented in this encounter Progress Notes Stephenie Zaragoza FNP - 09/02/2019 11:20 AM EST PATIENT: Be Segovia : 1980 DATE OF SERVICE: 09/02/2019 CHIEF COMPLAINT: Chief Complaint Patient presents with Insomnia Cough Subjective HISTORY OF PRESENT ILLNESS: Be Segovia is a 38-y.o. male. HPI Difficulty sleeping x 2 weeks - denies any change in activity or situation. States has tried OTC treatments in past that didn't work. Cough x 1 day - no meds. Works over nights Past Medical History: Diagnosis Date Anxiety Asthma Cardiac dysrhythmia Disorder of thyroid Dizziness GERD (gastroesophageal reflux disease) Headache disorder High cholesterol Hypertension Hypothyroidism JASWINDER on CPAP pt uses a bipap Osteoarthritis Otitis media Sinusitis, chronic Family History Problem Relation Age of Onset Cancer Maternal Aunt stomach Cancer Maternal Grandmother lung Heart Maternal Grandmother [place] Cancer Other colon Hypertension Mother Hypertension Father [...] BEDTIME. fluticasone (FLONASE) 50 MCG/ACT Nasal Suspension [place] 2 Sprays in nose DAILY. 2 sprays [...] apply route NEEDED (use with inhalor, wheezing). trazodone (DESYREL) 50 MG Oral Tab Take 1 Tab by mouth EVERY BEDTIME NEEDED (sleep). 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 Negative for chills and fever. HENT: Positive for sore throat. Negative for congestion and ear pain. Respiratory: Positive for cough. Negative for sputum production, shortness of breath and wheezing. Musculoskeletal: Negative for myalgias. Neurological: Negative for headaches. Psychiatric/Behavioral: The patient has insomnia. Objective PHYSICAL EXAM: VITALS: BP 148/70 | Pulse 84 | Temp 97.6 F (36.4 C) (Tympanic) | Ht 5' 10" (1.778 m) | Wt 287 lb (130.2 kg) | SpO2 96% | BMI 41.18 kg/m Body mass index is 41.18 kg/m. Physical Exam Vitals signs reviewed. Constitutional: Appearance: He is obese. HENT: Head: Normocephalic and atraumatic. Right Ear: Tympanic membrane normal. Left Ear: Tympanic membrane normal. Nose: Rhinorrhea present. Mouth/Throat: Mouth: Mucous membranes are moist. Pharynx: Oropharynx is clear. Uvula midline. Eyes: Pupils: Pupils are equal, round, and reactive to light. Neck: Musculoskeletal: Normal range of motion. Cardiovascular: Rate and Rhythm: Normal rate and regular rhythm. Pulmonary: Effort: Pulmonary effort is normal. No respiratory distress. Breath sounds: Normal breath sounds. No wheezing, rhonchi or rales. Skin: General: Skin is warm and dry. Neurological: Mental Status: He is alert and oriented to person, place, and time. Cranial Nerves: Cranial nerves are intact. Gait: Gait is intact. Psychiatric: Mood and Affect: Mood is anxious. Comments: Increased trouble sleeping - has been working over night guard - sx started after that.OTC meds not helpful. Will try low dose Trazodone as needed ASSESSMENT / IMPRESSION: ICD-9-CM ICD-10-CM 1. Acute URI 465.9 J06.9 2. Sleep disturbance 780.50 G47.9 trazodone (DESYREL) 50 MG Oral Tab Plan Use inhaler as needed for cough and Short of breath Salt water gargles as needed Delsym as needed for cough Trial Trazodone at bedtime for sleep Author: NATALIYA Oviedo 09/02/2019 11:40 documented in this encounter Plan of Treatment Date Type Specialty Care Team Description 09/03/2019 Office Visit Pulmonary Sandro Iyer MD [address] [place] [address] [phone] 09/10/2019 Office Visit Orthopedics Jorge Wahl MD [address] [place] [address] [phone] 09/30/2019 Office Visit Endocrinology Cheri Redmond FNP [address] [place] [address] 03/09/2020 Office Visit Cardiology Jeanie Whitt CRNP 1 [facility] [place] [address] 04/21/2020 Office Visit Endocrinology Cheri Redmond FNP [address] [facility] [place] [address] documented as of this encounter Goals Goal Patient Goal Associated Recent Patient-Stated? Author Type Problems Progress Blood Pressure Blood Pressure 148/70 No Earl, < 140/90 (09/02/2019 NATALIYA Hurst 11:18 AM EST) Note: This is an individualized treatment (blood pressure) goal for Be Segovia: Displayed above (on the left) is your goal for blood pressure control. Your most recent blood pressure is also shown above, on the right. You should try to achieve blood pressures that are lower than your goal listed above (on the left). Work with your Dermatology Teacher General Love Solis PA-C Note: This is an individualized treatment (frequent ED use) goal for Be Segovia: Please work with your Dermatology Teacher, who will assist you in meeting your goals of care. Weight loss vs. 18 mo Lifestyle 11 (09/02/2019 11:18 AM No Natali Elliott FNP max (lbs) >= 10 EST) Note: This is an individualized lifestyle goal for Be Segovia: Your body mass index (BMI) is more than 30. You should lose weight. A reasonable starting goal is to lose 10 pounds. Displayed above is how many pounds you have lost thus far towards your 10 pound weight loss goal. Regular appointments with primary care Lifestyle Love Solis PA- C provider (PCP) Note: This is an individualized lifestyle goal for Be Segovia: Please schedule regular visits with your primary care provider (PCP). Care provided in your PCP's office can help reduce your need for additional trips to the Emergency Room. Take all prescribed medications as Self-management No Natali Elliott FNP directed Note: This is an individualized self-management goal for Be Madelaine Segovia: Please take all prescribed medications as [...] filedocumented in this encounter Visit Diagnoses Diagnosis Acute URI - Primary Acute upper respiratory infections of unspecified site Sleep disturbance Sleep disturbance, unspecified documented in this encounter (Home) [address] [place], [place] (Work) [address] documented as of this encounter
--- OUTSIDE RECORDS SUMMARY | 2019-09-06 07:55 | XMS REPORT | Summary of Care ---
:1980 Author Organization [facility] Address [address] [facility] [place] [address] Care Team Providers Name Role Phone GilaShad Kavon Primary Care Provider Reason for Referral Durable Medical Equipment (Routine) Status Reason Specialty Diagnoses / Referred By Referred To Procedures Contact Contact Pending Review Diagnoses JASWINDER on CPAP JASWINDER (obstructive sleep apnea) Sandro Iyer MD [address] [place] [address] Reason for Visit Reason Comments Sleep Apnea Asthma Encounter Details Date Type Department Care Team Description 09/03/2019 Office Visit Post Pulmonary Sandro Iyer, Moderate persistent asthma without complication (Primary Dx) ; [address] [facility] JASWINDER on CPAP; [place] [address] [address] JASWINDER (obstructive sleep apnea) [phone] [place] [address] [phone] Allergies Active Allergy Reactions Severity Noted Date [...] Rash 08/30/2016 Pepcid Complete Rash 08/30/2016 Prednisone SURGICAL SCRUB TECH Reaction 08/23/2016 Prilosec Otc Rash 08/30/2016 Quinolones Rash 08/30/2016 Sertraline SURGICAL SCRUB TECH Reaction, Other High 08/23/2016 Sulfamethoxazole-Trimetho Other 03/23/2019 prim Trimethoprim Rash 01/30/2018 Albuterol Sulfate Other 12/07/2016 Not effective Zantac Rash Medium 11/26/2017 Bupropion Respiratory Reaction 08/30/2016 Hives documented as of this encounter (statuses as of 09/03/2019) Medications Medication Sig Dispensed Refills Start Date [...] 100 MG Oral Tab MOUTH EVERY DAY meclizine (ANTIVERT) Take 1 Tab by 90 Tab 0 06/30/2019 Active 25 MG Oral Tab mouth TWO TIMES DAILY NEEDED for dizziness/vertig o. albuterol HFA INHALE 2 PUFFS 8.5 Inhaler 3 07/03/2019 Active (VENTOLIN) 108 (90 BY MOUTH EVERY 4 Base) MCG/ACT HOURS NEEDED Inhalation Aero FOR WHEEZING SolnIndications: Mild intermittent asthma with acute exacerbation fluticasone (FLONASE) [place] 2 Sprays 1 Bottle 5 07/24/2019 07/23/2020 Active 50 MCG/ACT Nasal in nose DAILY. 2 Suspension sprays each nostril [...] EVERY TabIndications: Sleep BEDTIME disturbance NEEDED (sleep). mometasone furoate Take 2 Puffs by 1 Inhaler 5 09/03/2019 Active (ASMANEX HFA) 200 inhalation MCG/ACT Inhalation DAILY. Aerosol Hospital, Clinic, or Other Ordered Dose Route Frequency Start Date End Date Status Facility Administered Medication ibuprofen (MOTRIN) tablet 600 mg PO Q6 HRS PRN 02/06/2019 Active 600 mg documented as of this encounter (statuses as of 09/03/2019) Active Problems Problem Noted Date Essential hypertension [...] 08/15/2016 Generalized anxiety disorder 08/15/2016 Overview: Therapist [facility] Mild intermittent asthma without complication 08/15/2016 Overview: [facility] 2011 JASWINDER on CPAP Overview: [facility] Professional Home Care- CPAP. AHI 35 on 07/23/17 NPSG through [facility] documented as of this encounter (statuses as of 09/03/2019) Resolved Problems Problem Noted Date Resolved Date Problem 03/03/2019 05/07/2019 Right wrist pain 12/09/2017 05/07/2019 Calculus of gallbladder without cholecystitis without 09/10/2016 10/04/2016 obstruction Gallbladder polyp 08/15/2016 10/04/2016 documented as of this encounter (statuses as of 09/03/2019) Immunizations Name Administration Dates Next Due Influenza [...] Sign Reading Time Taken Comments Blood Pressure 118/84 09/03/2019 3:08 PM EST Pulse 77 09/03/2019 3:08 PM EST Temperature - - Respiratory Rate - - Oxygen Saturation 99% 09/03/2019 3:08 PM room air at rest EST Inhaled Oxygen Concentration - - Weight 131.3 kg (289 lb 8 09/03/2019 3:08 PM oz) EST Height 177.8 cm (5' 10") 09/03/2019 3:08 PM EST Body Mass Index 41.54 09/03/2019 3:08 PM EST documented in this encounter Progress Notes Sandro Iyer MD - 09/03/2019 3:00 PM EST Name: Be Segovia : 1980 Date of Service: 09/03/2019 Referring Practioner: Sandro Iyer Primary Care Provider: Shad Uriostegui History of Present Illness Be Segovia is a 38-y.o. male who presents for a reevaluation of his obstructive sleep apnea aswell as his asthma. As far as asthma, the patient had to discontinue his inhaled steroid because his insurance will not cover Asmanex without a prior authorization so he ran out of medication. Since then, he has had some increased cough and wheezing. Preferred brand from his insurance Arnuity and Flovent and the patient has tried both of them and he cannot tolerate either one. Both of them makes him feel more short of breath. As a result, his exhaled nitric oxide has gone up to the 40s. As faras his sleep apnea, the patient is wearing his device about 6-1/2 hours a night. His AHI is 1.3. His mean pressure is 10 cmH2O and he does not have any leak. The patient denies any chest pain, abdominal pain, melena, hematuria,rash or swelling of any joints. 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 fluticasone (FLONASE) 50 MCG/ACT Nasal Suspension [place] 2 Sprays in nose DAILY. 2 sprays [...] DAILY NEEDED (heart palpitaitons). mometasone furoate (ASMANEX HFA) 200 MCG/ACT Inhalation Aerosol Take 2 Puffs by inhalation DAILY. Spacer/Aero Chamber Mouthpiece Does not apply Misc 1 Act by Does not apply route NEEDED (use with inhalor, wheezing). trazodone (DESYREL) 50 MG Oral Tab Take 1 Tab by mouth EVERY BEDTIME NEEDED (sleep). Current Facility-Administered Medications Medication ibuprofen (MOTRIN) tablet 600 mg Past Medical History: Diagnosis Date Anxiety Asthma Cardiac dysrhythmia Disorder of thyroid Dizziness GERD (gastroesophageal reflux disease) Headache disorder High cholesterol Hypertension Hypothyroidism JASWINDER on CPAP pt uses a bipap Osteoarthritis Otitis media Sinusitis, chronic Past Surgical History: Procedure Laterality Date ARTHROSCOPY, SHOULDER ACROMIOPLASTY, DISTAL CLAVICLE Right 04/10/2019 Procedure: RIGHT SHOULDER ARTHROSCOPIC SUBACROMIAL DECOMPRESSION ; Surgeon: Percy Funes MD; Location: [facility] MAIN OR CARPAL TUNNEL RELEASE Right CIRCUMCISION EGD N/A 11/26/2017 Procedure: EGD with biopsies; Surgeon: Brianda Fairbanks MD; Location: [facility] MAIN OR ELBOW ARTHROPLASTY NEC Right LAPAROSCOPIC CHOLECYSTECTOMY N/A 09/10/2016 Procedure: LAPAROSCOPIC CHOLECYSTECTOMY; Surgeon: Mars Nicholas MD; Location: [facility] MAIN OR NASAL SINUS OPERATIONS NC RECONSTR NOSE+JIMENEZ SEPTAL REPAIR N/A 03/20/2019 Procedure: SEPTORHINOPLASTY, REDUCTION OF INFERIOR TURBINATES; Surgeon: Zechariah Suggs Jr., MD; Location: [facility] MAIN OR NC REMOVAL GALLBLADDER 2016 NC REMOVE TONSILS/ADENOIDS,12+ Y/O tonsillectomy NC REVISE MEDIAN N/CARPAL TUNNEL SURG Right 01/15/2018 Procedure: RELEASE CARPAL TUNNEL/RIGHT CARPAL TUNNEL RELEASE; Surgeon: Abelardo Alvarado MD; Location: [facility] MAIN OR TONSILLECTOMY Family History Problem Relation Age of Onset Cancer Maternal Aunt stomach Cancer Maternal Grandmother lung Heart Maternal Grandmother [place] Cancer Other colon Hypertension Mother Hypertension Father High Cholesterol Father Anesth Problems No family history Arthritis No family history Clotting Disorder No family history Diabetes No family history Heart Disease No family history Kidney Disease No family history Thyroid Disease No family history REVIEW OF SYSTEMS: A remaining review of systems was negative except for as noted in the history of present illness/subjective. PHYSICAL EXAMINATION: VITALS: Vitals: 09/03/19 1508 BP: 118/84 BP Location: Left arm Patient Position: Sitting Pulse: 77 SpO2: 99% Weight: 289 lb 8 oz (131.3 kg) Height: 5' 10" (1.778 m) GENERAL: alert, oriented, no acute distress, moderately obese HEENT: sclera normal, anicteric, mucous membrane moist, conjunctivitis pink and pale, pupils equal,round, reactive to light, extraocular movement intact, posterior pharynx: crowded, tongue midline ,dry mucous membranes, Mallampati Score: Class IV: hard palate only. NECK: no mass, no adenopathy, no thyromegaly, supple, thyroid: not enlarged, symmetric, no tenderness/mass/nodules, no jugular venous distention. LUNGS: diminished breath sounds bilateral. Mild bilateral expiratory wheezes HEART: regular rhythm, no murmurs, no gallops, no rubs S1: normal S2: normal. ABDOMEN: soft, non tender, without masses or organomegaly, protuberant, nondistended, normal bowel sounds, without guarding, without rebound. EXTREMITIES: no clubbing, cyanosis, or edema. NEUROLOGICAL: alert and oriented x3 gait: normal. Impression/Plan: 1. Moderate persistent asthma, poorly controlled. There is no question that the patient needs to be on an inhaled steroid. He wants to try the HFA version of Asmanex. I will put him on Asmanex 220 mcg using 2 inhalations once a day. I did find some samples and that would give us enough time to get the prior authorization. 2. Obstructive sleep apnea. Doing well on his auto BiPAP. Continue with the present therapy. The patient will come back for follow-up in 6 months Author: Sandro Iyer MD 15:27 09/03/2019 documented in this encounter Plan of Treatment Date Type Specialty Care Team Description 09/10/2019 Office Visit Orthopedics Jorge Wahl MD [address] [address] [phone] 09/30/2019 Office Visit Endocrinology Cheri Redmond FNP [address] [facility] [place] [address] 03/03/2020 Office Visit Pulmonary Sandro Iyer MD [address] [place] [address] 03/09/2020 Office Visit Cardiology Jeanie Whitt CRNP [address] [place] [address] 04/21/2020 Office Visit Endocrinology Cheri Redmond FNP [address] [facility] [place] [address] [phone] Name Type Priority Associated Diagnoses Order Schedule DME RESPIRATORY ASSIST Referral Routine JASWINDER on CPAP Ordered: 09/03/2019 DEVICE (BIPAP/CPAP JASWINDER (obstructive sleep SUPPLIES) apnea) documented as of this encounter Goals Goal Patient Goal Associated Recent Patient-Stated? Author Type Problems Progress Blood Pressure Blood Pressure 118/84 No Earl, < 140/90 (09/03/2019 NATALIYA Hurst 3:08 PM EST) Note: This is an individualized treatment (blood pressure) goal for Be Madelaine Segovia: Displayed above (on the left) is your goal for blood pressure control. Your most recent blood pressure is also shown above, on the right. You should try to achieve blood pressures that are lower than your goal listed above (on the left). Work with your Baker Test General Love Solis PA-C Note: This is an individualized treatment (frequent ED use) goal for Be Segovia: Please work with your Baker Test, who will assist you in meeting your goals of care. Weight loss vs. 18 mo Lifestyle 8.5 (09/03/2019 3:08 PM Natali Jones FNP max (lbs) >= 10 EST) Note: [...] filedocumented in this encounter Visit Diagnoses Diagnosis Moderate persistent asthma without complication - Primary Unspecified asthma JASWINDER on CPAP Obstructive sleep apnea (adult) (pediatric) JASWINDER (obstructive sleep apnea) Obstructive sleep apnea (adult) (pediatric) documented in this encounter (Home) [address] [facility] [address] [place], [place] (Work) [address] documented as of this encounter
--- OUTSIDE RECORDS SUMMARY | 2019-09-06 07:55 | XMS REPORT | Summary of Care ---
:1980 Author Organization [facility] Address [address] [facility] [place] [address] Care Team Providers Name Role Phone Shad Uriostegui Primary Care Provider Reason for Visit Reason Comments Follow Up Hypothyroidism Encounter Details Date Type Department Care Team Description 08/06/2019 Office Visit [facility] [place], Flu vaccine need [address] [facility] NATALIYA Alonzo (Primary Dx) [place] [address] [place] [address] [place] [address] Allergies Active Allergy Reactions [...] Rash 08/30/2016 Pepcid Complete Rash 08/30/2016 Prednisone FINAL CIGAR AND BOX EXAMINER Reaction 08/23/2016 Prilosec Otc Rash 08/30/2016 Quinolones Rash 08/30/2016 Sertraline FINAL CIGAR AND BOX EXAMINER Reaction, Other High 08/23/2016 Sulfamethoxazole-Trimetho Other 03/23/2019 prim Trimethoprim Rash 01/30/2018 Albuterol Sulfate Other 12/07/2016 Not effective Zantac Rash Medium 11/26/2017 Bupropion Respiratory Reaction 08/30/2016 Hives documented as of this encounter (statuses as of 08/06/2019) Medications Medication Sig Dispensed Refills Start Date End Date Status clonazePAM (KLONOPIN) Take 3 mg by 0 Active 1 MG Oral Tab mouth EVERY BEDTIME. atorvastatin Take 1 Tab by 90 Tab 1 04/07/2019 Active (LIPITOR) 40 MG Oral mouth DAILY. TabIndications: Mixed hyperlipidemia Spacer/Aero Chamber 1 Act by Does 1 Device 0 04/23/2019 Active Mouthpiece Does not not apply route apply Misc NEEDED (use with inhalor, wheezing). levothyroxine Take 1 Tab by 30 Tab 4 04/27/2019 Active (SYNTHROID) 150 MCG mouth BEFORE Oral Tab BREAKFAST. cetirizine (ZYRTEC) Take 1 Tab by 30 Tab 5 05/21/2019 Active 10 MG Oral Tab mouth DAILY. Losartan Potassium TAKE 1 TABLET 30 Tab 5 05/26/2019 Active 100 MG Oral Tab BY MOUTH EVERY DAY metoprolol Take 1 Tab by 60 Tab 1 06/24/2019 Active (LOPRESSOR) 25 MG mouth THREE Oral Tab TIMES DAILY NEEDED (heart palpitaitons). meclizine (ANTIVERT) Take 1 Tab by 90 Tab 0 06/30/2019 Active 25 MG Oral Tab mouth TWO TIMES DAILY NEEDED for dizziness/verti go. albuterol HFA INHALE 2 PUFFS 8.5 Inhaler 3 07/03/2019 Active (VENTOLIN) 108 (90 BY MOUTH EVERY Base) MCG/ACT 4 HOURS Inhalation Aero NEEDED FOR SolnIndications: Mild WHEEZING intermittent asthma with acute exacerbation fluticasone (FLONASE) [place] 2 Sprays 1 Bottle 5 07/24/2019 07/23/2020 Active 50 MCG/ACT Nasal in nose DAILY. Suspension 2 sprays each nostril daily Hospital, Clinic, or Other Ordered Dose Route Frequency Start Date End Date Status Facility Administered Medication ibuprofen (MOTRIN) tablet 600 mg PO Q6 HRS PRN 02/06/2019 Active 600 mg documented as of this encounter (statuses as of 08/06/2019) Active Problems Problem Noted Date Essential hypertension [...] 08/15/2016 Generalized anxiety disorder 08/15/2016 Overview: Therapist [facility] Mild intermittent asthma without complication [facility] Overview: [email or web address]- CPAP. AHI 35 on 07/23/17 NPSG through [facility] documented as of this encounter (statuses as of 08/06/2019) Resolved Problems Problem Noted Date Resolved Date Problem 03/03/2019 05/07/2019 Right wrist pain 12/09/2017 05/07/2019 Calculus of gallbladder without cholecystitis without 09/10/2016 10/04/2016 obstruction Gallbladder polyp 08/15/2016 10/04/2016 documented as of this encounter (statuses as of 08/06/2019) Immunizations Name Administration Dates Next Due Influenza [...] Sign Reading Time Taken Comments Blood Pressure 120/78 08/06/2019 9:47 AM EDT Pulse 77 08/06/2019 9:47 AM EDT Temperature - - Respiratory Rate - - Oxygen Saturation 95% 08/06/2019 9:47 AM EDT Inhaled Oxygen Concentration - - Weight 130.2 kg (287 lb) 08/06/2019 9:47 AM EDT Height - - Body Mass Index 41.18 07/30/2019 11:21 AM EDT documented in this encounter Progress Notes Cheri Redmond FNP - 08/06/2019 10:20 AM EDT NAME: Be Sgeovia : 1980 DATE: 08/06/2019 SUBJECTIVE: Be Segovia is a 38-y.o. male is here for a follow-up for his Hypothyroidism. Seen today at his request. he had done labs for me on an increased dose. I sent him a letter stating that his TSHwas higher than previous and his free T4 was lower. He wanted to see me to discuss. Clinically , hecontinued to note fatigue, weight struggles, depression, memory fog. In discussing, He does not and "has never" taken his replacement on an empty stomach. Current medications, allergies, and all history have been reviewed. Current Outpatient Medications Medication Sig albuterol HFA [...] BEDTIME. fluticasone (FLONASE) 50 MCG/ACT Nasal Suspension [place] 2 Sprays in nose DAILY. 2 sprays [...] tablet 600 mg Allergies Allergen Reactions Sertraline FINAL CIGAR AND BOX EXAMINER Reaction and Other Zantac Rash Advair Diskus [...] Rash Penicillins Rash Pepcid Complete Rash Prednisone FINAL CIGAR AND BOX EXAMINER Reaction Prilosec Otc Rash Quinolones Rash Sulfamethoxazole-Trimethoprim Other Trimethoprim Rash Ventolin [Albuterol Sulfate] Other Not effective Zyban [Bupropion] Respiratory Reaction Hives Cephalexin Monohydrate Rash Fluticasone Other Headaches, breathing problems Iodinated Diagnostic Agents Dermatologic Reaction Past Medical History: Diagnosis Date Anxiety Asthma Cardiac dysrhythmia Disorder of thyroid Dizziness GERD (gastroesophageal reflux disease) Headache disorder High cholesterol Hypertension Hypothyroidism JASWINDER on CPAP pt uses a bipap Osteoarthritis Otitis media Sinusitis, chronic Social History Socioeconomic History Marital status: Single [...] file Gets together: Not on file Attends muslim service: Not on file Active member of [...] 60 lbs Social History Narrative Lives in [place], [place] Lives alone no significant other Never No children 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 General: no distress. Eyes: conjunctiva pink Neck: no thyroid enlargement or nodules. Heart: regular rate and rhythm, no murmur. Lungs: Clear to auscultation. Abdomen: Normal bowel sounds Neuro: 2+ DTR Extremities: No edema. Psych: Alert and oriented. ASSESSMENT and PLAN: 1. Hypothyroidism. He will begin taking on empty stomach Labs in two months Adjust for clinical status then 2. Hyperlipidemia Monitor as thyroid levels improve NATALIYA Villegas Section of Endocrinology 08/06/2019 10:02 documented in this encounter Plan of Treatment Date Type Specialty Care Team Description 09/03/2019 Office Visit Pulmonary Sandro Iyer MD [address] [place] [address] [phone] 03/09/2020 Office Visit Cardiology Jeanie Whitt CRNP [address] [facility] [place] [address] 04/21/2020 Office Visit Endocrinology Cheri Redmond FNP [address] [facility] [place] [address] documented as of this encounter Goals Goal Patient Goal Associated Recent Patient-Stated? Author Type Problems Progress Blood Pressure Blood Pressure 120/78 No Earl, < 140/90 (08/06/2019 NATALIYA Hurst 9:47 AM EDT) Note: This is an individualized treatment (blood pressure) goal for Be Madelaine Segovia: Displayed above (on the left) is your goal for blood pressure control. Your most recent blood pressure is also shown above, on the right. You should try to achieve blood pressures that are lower than your goal listed above (on the left). Weight loss vs. 18 mo Lifestyle 11 (08/06/2019 9:47 AM No Natali Elliott FNP max (lbs) [...] filedocumented in this encounter Visit Diagnoses Diagnosis Flu vaccine need - Primary Need for prophylactic vaccination and inoculation against influenza documented in this encounter (Home) [address] [facility] [place], [place] (Work) [id number] documented as of this encounter
--- OUTSIDE RECORDS SUMMARY | 2019-09-06 07:55 | XMS REPORT | Summary of Care ---
:1980 Author Organization [facility] Address [address] [facility] [place] [address] Care Team Providers Name Role Phone Shad Uriostegui Primary Care Provider Reason for Visit Reason Comments Follow Up F/U right middle trigger finger. Patient states that some days his finger is good and some days it is not so good. Patient reports when making a fist, sometimes his middle finger does not release. Encounter Details Date Type Department Care Team Description 08/21/2019 Office Visit [facility] - Abelardo Alvarado MD Trigger middle finger [place] [address] [facility] of right hand [address] [facility] [address] (Primary Dx) [place] [address] [place] [address] [phone] Allergies Active Allergy Reactions Severity Noted Date [...] Rash 08/30/2016 Pepcid Complete Rash 08/30/2016 Prednisone SCRATCHER Reaction 08/23/2016 Prilosec Otc Rash 08/30/2016 Quinolones Rash 08/30/2016 Sertraline SCRATCHER Reaction, Other High 08/23/2016 Sulfamethoxazole-Trimetho Other 03/23/2019 prim Trimethoprim Rash 01/30/2018 Albuterol Sulfate Other 12/07/2016 Not effective Zantac Rash Medium 11/26/2017 Bupropion Respiratory Reaction 08/30/2016 Hives documented as of this encounter (statuses as of 08/21/2019) Medications Medication Sig Dispensed Refills Start Date [...] intermittent asthma with acute exacerbation fluticasone (FLONASE) [place] 2 Sprays 1 Bottle 5 07/24/2019 07/23/2020 [...] 150 MCG mouth BEFORE Oral Tab BREAKFAST. Hospital, Clinic, or Other Ordered Dose Route Frequency Start Date End Date Status Facility Administered Medication ibuprofen (MOTRIN) tablet 600 mg PO Q6 HRS PRN 02/06/2019 Active 600 mg documented as of this encounter (statuses as of 08/21/2019) Active Problems Problem Noted Date Essential hypertension [...] 08/15/2016 Generalized anxiety disorder 08/15/2016 Overview: Therapist [facility] Mild intermittent asthma without complication 08/15/[facility]: [facility]- CPAP. AHI 35 on 07/23/17 [place] [facility] as of this encounter (statuses as of 08/21/2019) Resolved Problems Problem Noted Date Resolved Date Problem 03/03/2019 05/07/2019 Right wrist pain 12/09/2017 05/07/2019 Calculus of gallbladder without cholecystitis without 09/10/2016 10/04/2016 obstruction Gallbladder polyp 08/15/2016 10/04/2016 documented as of this encounter (statuses as of 08/21/2019) Immunizations Name Administration Dates Next Due Influenza [...] Sign Reading Time Taken Comments Blood Pressure 126/83 08/21/2019 10:05 AM EDT Pulse 78 08/21/2019 10:05 AM EDT Temperature - - Respiratory Rate - - Oxygen Saturation - - Inhaled Oxygen Concentration - - Weight 130.2 kg (287 lb) 08/21/2019 10:05 AM EDT Height 177.8 cm (5' 10") 08/21/2019 10:05 AM EDT Body Mass Index 41.18 08/21/2019 10:05 AM EDT documented in this encounter Progress Notes Abelardo Alvarado MD - 08/21/2019 9:45 AM EDT Name: Be Segovia : 1980 Date of Service: 08/21/2019 Chief Complaint Patient presents with Follow Up F/U right middle trigger finger. Patient states that some days his finger is good and some days itis not so good. Patient reports when making a fist, sometimes his middle finger does not release. History of Present Illness: Be Segovia is a 38-y.o. male. The above is noted. Patient is in today for follow-up of trigger digit right long finger. Patient states that the triggering of his long finger is intermittent. Physical Examination: BP 126/83 | Pulse 78 | Ht 5' 10" (1.778 m) | Wt 287 lb (130.2 kg) | BMI 41.18 kg/m Well-developed well-nourished male in minimal discomfort at rest. Patient has no obvious triggering on palpation of his right dominant hand long finger A1 fabian base. Patient is neurovascularly intact. Impression: Trigger digit? Plan: We will refer to Dr. Wahl for an opinion All questions were answered. There are no Patient Instructions on file for this visit. Author: Abelardo Alvarado MD 08/21/2019 10:11 documented in this encounter Plan of Treatment Date Type Specialty Care Team Description 08/25/2019 Ancillary Procedure Radiology 09/03/2019 Office Visit Pulmonary Sandro Iyer MD [address] [place] [address] [phone] 09/10/2019 Office Visit Orthopedics Jorge Wahl MD [address] [facility] [address] [place] [address] 09/30/2019 Office Visit Endocrinology Cheri Redmond FNP [address] [facility] [place] [address] 03/09/2020 Office Visit Cardiology Jeanie Whitt CRNP 1 [place] [id number] 04/21/2020 Office Visit Endocrinology Cheri Redmond FNP [address] [facility] [place] [address] documented as of this encounter Goals Goal Patient Goal Associated Recent Patient-Stated? Author Type Problems Progress Blood Pressure Blood Pressure 126/83 No Earl, < 140/90 (08/21/2019 NATALIYA Hurst 10:05 AM EDT) Note: This is an individualized treatment (blood pressure) goal for Be Segovia: Displayed above (on the left) is your goal for blood pressure control. Your most recent blood pressure is also shown above, on the right. You should try to achieve blood pressures that are lower than your goal listed above (on the left). Work with your Financial Administrative Assistant Love Wall PA-C Note: This is an individualized treatment (frequent ED use) goal for Be Segovia: Please work with your Financial Administrative Assistant, who will assist you in meeting your goals of care. Weight loss vs. 18 mo Lifestyle 11 (08/21/2019 10:05 AM No Natali Elliott FNP max (lbs) [...] goal. Regular appointments with primary care Lifestyle No Love Matias PA- C provider (PCP) Note: This is [...] filedocumented in this encounter Visit Diagnoses Diagnosis Trigger middle finger of right hand - Primary Trigger finger (acquired) documented in this encounter (Home) [phone] [place], [place] (Work) [id number] documented as of this encounter
--- OUTSIDE RECORDS SUMMARY | 2019-09-06 07:56 | XMS REPORT | Summary of Care ---
:1980 Author Organization [facility] Address [address] [facility] [place] [address] Care Team Providers Name Role Phone Shad Uriostegui MD Primary Care Provider Reason for Visit Reason Comments Sinus Problem pt states 1 month of sinus inf. [place] [facility] [place] times in the last month. 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 Mild intermittent asthma without complication; [address] S/P nasal septoplasty; [place] [address] [place] [id number] Seasonal allergies [phone] Allergies Active Allergy Reactions Severity Noted Date [...] Rash 08/30/2016 Pepcid Complete Rash 08/30/2016 Prednisone WELL LOGGING CAPTAIN Reaction 08/23/2016 Prilosec Otc Rash 08/30/2016 Quinolones Rash 08/30/2016 Sertraline WELL LOGGING CAPTAIN Reaction, Other High 08/23/2016 Sulfamethoxazole-Trimetho Other 03/23/2019 prim Trimethoprim Rash 01/30/2018 Albuterol Sulfate Other 12/07/2016 Not effective Zantac Rash Medium 11/26/2017 Bupropion Respiratory Reaction 08/30/2016 Hives documented as of this encounter (statuses as of 07/13/2019) Medications Medication Sig Dispensed Refills Start Date End Date Status clonazePAM (KLONOPIN) 1 Take 3 mg by 0 Active MG Oral Tab mouth EVERY BEDTIME. atorvastatin (LIPITOR) Take 1 Tab by 90 Tab 1 04/07/2019 Active 40 MG Oral mouth DAILY. TabIndications: Mixed hyperlipidemia Spacer/Aero Chamber 1 Act by Does 1 Device 0 04/23/2019 Active Mouthpiece Does not not apply route apply Misc NEEDED (use with inhalor, wheezing). levothyroxine Take 1 Tab by 30 Tab 4 04/27/2019 Active (SYNTHROID) 150 MCG mouth BEFORE Oral Tab BREAKFAST. cetirizine (ZYRTEC) 10 Take 1 Tab by 30 Tab 5 05/21/2019 Active MG Oral Tab mouth DAILY. Losartan Potassium 100 TAKE 1 TABLET 30 Tab 5 05/26/2019 Active MG Oral Tab BY MOUTH EVERY DAY fluticasone (FLONASE) [place] 2 Sprays 1 Bottle 5 06/03/2019 06/02/2020 Active 50 MCG/ACT Nasal in nose DAILY. Suspension Additional information Patient taking differently: 2 [place] Nasal DAILY, Indications: causes headaches/migraines, Reported on 06/09/2019 2:15 PM metoprolol Take 1 Tab by mouth 60 Tab 1 06/24/2019 Active (LOPRESSOR) 25 MG THREE TIMES DAILY Oral Tab NEEDED (heart palpitaitons). meclizine Take 1 Tab by mouth 90 Tab 0 06/30/2019 Active (ANTIVERT) 25 MG TWO TIMES DAILY Oral Tab NEEDED for dizziness/vertigo. albuterol HFA INHALE 2 PUFFS BY 8.5 Inhaler 3 07/03/2019 Active (VENTOLIN) 108 (90 MOUTH EVERY 4 HOURS Base) MCG/ACT NEEDED FOR Inhalation Aero WHEEZING SolnIndications: Mild intermittent asthma with acute exacerbation Clindamycin HCl 300 Take 1 Cap by mouth 28 Cap 0 07/13/2019 Active MG Oral FOUR TIMES DAILY. CapIndications: Acute recurrent sinusitis, unspecified location mometasone furoate Take 2 Puffs by 1 Inhaler 5 06/30/2019 Discontinued (ASMANEX, 60 inhalation DAILY. 019 METERED DOSES,) 220 MCG/INH Inhalation AEROSOL POWDER, BREATH ACTIVATED Hospital, Clinic, or Other Ordered Dose Route Frequency Start Date End Date Status Facility Administered Medication ibuprofen (MOTRIN) tablet 600 mg PO Q6 HRS PRN 02/06/2019 Active 600 mg documented as of this encounter (statuses as of 07/13/2019) Active Problems Problem Noted Date Essential hypertension [...] 08/15/2016 Generalized anxiety disorder 08/15/2016 Overview: Therapist [facility] Mild intermittent asthma without complication 08/15/2016 Overview: pfts [facility] 2012 JASWINDER on CPAP Overview: [facility]- CPAP. AHI 35 on 07/23/17 NPSG through [facility] documented as of this encounter (statuses as of 07/13/2019) Resolved Problems Problem Noted Date Resolved Date Problem 03/03/2019 05/07/2019 Right wrist pain 12/09/2017 05/07/2019 Calculus of gallbladder without cholecystitis without 09/10/2016 10/04/2016 obstruction Gallbladder polyp 08/15/2016 10/04/2016 documented as of this encounter (statuses as of 07/13/2019) Immunizations Name Administration Dates Next Due Influenza [...] Sign Reading Time Taken Comments Blood Pressure 132/82 07/13/2019 1:53 PM EDT Pulse 86 07/13/2019 1:53 PM EDT Temperature 36.7 07/13/2019 1:53 PM EDT C (98.1 F) Respiratory Rate - - Oxygen Saturation 96% 07/13/2019 1:53 PM EDT Inhaled Oxygen Concentration - - Weight 130.2 kg (287 lb) 07/13/2019 1:53 PM EDT Height 177.8 cm (5' 10") 07/13/2019 1:53 PM EDT Body Mass Index 41.18 07/13/2019 1:53 PM EDT documented in this encounter Patient Instructions Patient InstructionsStephenie Zaragoza FNP - 07/13/2019 2:00 PM EDTRest Fluids medications as directed salt water nasal as needed Call if symptoms fail to resolve or worsen documented in this encounter Progress Notes Stephenie Zaragoza FNP - 07/13/2019 2:00 PM EDT PATIENT: Be Segovia : 1980 DATE OF SERVICE: 07/13/2019 CHIEF COMPLAINT: Chief Complaint Patient presents with Sinus Problem pt states 1 month of sinus inf. [place] [facility] [place] in the last month. Subjective HISTORY OF PRESENT ILLNESS: Be Segovia is a 38-y.o. male. HPI Seen in x 2 in past month for sinusitis - treated with Zpack x 2. Having head congestion, headache, sore throat, post nasal drip, runny nose at times. Uses nasal spray - Flonase Daily - not helping Also has environmental allergies - not taking Zyrtec daily Feels asthma starting to flair up Past Medical History: Diagnosis Date Anxiety Asthma Disorder of thyroid High cholesterol Hypertension Hypothyroidism JASWINDER on CPAP pt uses a bipap Osteoarthritis Family History Problem Relation Age of Onset Cancer Maternal Aunt stomach Cancer Maternal Grandmother lung Heart Maternal Grandmother [place] Cancer Other colon Hypertension Mother Hypertension Father [...] Tab Take 1 Tab by mouth DAILY. Clindamycin HCl 300 MG Oral Cap Take 1 Cap by mouth FOUR TIMES DAILY. clonazePAM (KLONOPIN) 1 MG Oral Tab Take 3 mg by mouth EVERY BEDTIME. fluticasone (FLONASE) 50 MCG/ACT Nasal Suspension [place] 2 Sprays in nose DAILY. (Patient taking differently: [place] 2 Sprays in nose DAILY. 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 Negative for chills and fever. HENT: Positive for congestion, sinus pain and sore throat. Negative for ear pain. Respiratory: Positive for cough. Negative for sputum production, shortness of breath and wheezing. Neurological: Positive for headaches. Negative for dizziness. Objective PHYSICAL EXAM: VITALS: BP 132/82 (BP Location: Left arm, Patient Position: Sitting) | Pulse 86 | Temp 98.1 F(36.7 C) | Ht 5' 10" (1.778 m) | Wt 287 lb (130.2 kg ) | SpO2 96% | BMI 41.18 kg/m Body mass index is 41.18 kg/m. Physical Exam Constitutional: He is oriented to person, place, and time. Vital signs are normal. He appears well-developed and well-nourished. HENT: Head: Normocephalic and atraumatic. Right Ear: Tympanic membrane is retracted. Tympanic membrane is not erythematous. Left Ear: Tympanic membrane is retracted. Tympanic membrane is not erythematous. Nose: Mucosal edema present. Right sinus exhibits maxillary sinus tenderness. Left sinus exhibits maxillary sinus tenderness. Mouth/Throat: Uvula is midline. Posterior oropharyngeal erythema present. Post nasal drip Eyes: Pupils are equal, round, and reactive to light. EOM are normal. Neck: Normal range of motion. No JVD present. No thyromegaly present. Cardiovascular: Normal rate and regular rhythm. Pulmonary/Chest: Effort normal and breath sounds normal. No respiratory distress. He has no wheezes.He has no rales. He exhibits no tenderness. Lymphadenopathy: He has no cervical adenopathy. Neurological: He is alert and oriented to person, place, and time. No cranial nerve deficit or sensory deficit. Skin: Skin is warm and dry. He is not diaphoretic. No cyanosis. No pallor. Vitals reviewed. ASSESSMENT / IMPRESSION: ICD-9-CM ICD-10-CM 1. Acute recurrent sinusitis, unspecified location 461.9 J01.91 Clindamycin HCl 300 MG Oral Cap 2. Mild intermittent asthma without complication 493.90 J45.20 3. S/P nasal septoplasty V45.89 Z98.890 4. Seasonal allergies 477.9 J30.2 Plan Rest Fluids medications as directed salt water nasal as needed Call if symptoms fail to resolve or worsen Author: NATALIYA Oviedo 07/13/2019 14:19 documented in this encounter Plan of Treatment Date Type Specialty Care Team Description 08/03/2019 IPPR Cardiology 09/03/2019 Office Visit Pulmonary Sandro Iyer MD [address] [place] [address] [phone] 03/09/2020 Office Visit Cardiology Jeanie Whitt CRNP [address] [place] [address] 04/21/2020 Office Visit Endocrinology Cheri Redmond FNP [address] [facility] [place] [address] documented as of this encounter Goals Goal Patient Goal Associated Recent Patient-Stated? Author Type Problems Progress Blood Pressure Blood Pressure 132/82 No Earl, < 140/90 (07/13/2019 NATALIYA Hurst 1:53 PM EDT) Note: This is an individualized treatment (blood pressure) goal for Be Segovia: Displayed above (on the left) is your goal for blood pressure control. Your most recent blood pressure is also shown above, on the right. You should try to achieve blood pressures that are lower than your goal listed above (on the left). Weight loss vs. 18 mo Lifestyle 11 (07/13/2019 1:53 PM No Natali Elliott FNP max (lbs) >= [...] in this encounter Visit Diagnoses Diagnosis Acute recurrent sinusitis, unspecified location - Primary Mild intermittent asthma without complication Unspecified asthma S/P nasal septoplasty Other postprocedural status Seasonal allergies Allergic rhinitis, cause unspecified documented in this encounter (Home) [address] [facility] [place], [place] (Work) [id number] documented as of this encounter
--- OUTSIDE RECORDS SUMMARY | 2019-09-06 07:56 | XMS REPORT | Summary of Care ---
:1980 Author Organization [facility] Address [address] [facility] [place] [address] Care Team Providers Name Role Phone Shad Uriostegui Primary Care Provider Reason for Visit Reason Comments Follow Up 38 yr old male presents today per Dr. Suggs Sinus Problem chronic sinus infections, last episode on going since last week Encounter Details Date Type Department Care Team Description 07/30/2019 Office Visit Avelino Pena LPRD (laryngopharyngeal reflux disease) (Primary Dx); Otorhinolaryngology II, Obstructive sleep apnea; [address] Obesity, Class III, BMI 40-49.9 (morbid obesity) ([facility]) [place] [address] [place] [address] Allergies Active Allergy Reactions Severity Noted [...] Rash 08/30/2016 Pepcid Complete Rash 08/30/2016 Prednisone WINDOW TRIMMER Reaction 08/23/2016 Prilosec Otc Rash 08/30/2016 Quinolones Rash 08/30/2016 Sertraline WINDOW TRIMMER Reaction, Other High 08/23/2016 Sulfamethoxazole-Trimetho Other 03/23/2019 prim Trimethoprim Rash 01/30/2018 Albuterol Sulfate Other 12/07/2016 Not effective Zantac Rash Medium 11/26/2017 Bupropion Respiratory Reaction 08/30/2016 Hives documented as of this encounter (statuses as of 07/30/2019) Medications Medication Sig Dispensed Refills Start End Date Status Date clonazePAM Take 3 mg by 0 Active (KLONOPIN) 1 MG mouth EVERY Oral Tab BEDTIME. atorvastatin Take 1 Tab by 90 Tab 1 Active (LIPITOR) 40 MG mouth DAILY. 9 Oral TabIndications: Mixed hyperlipidemia Spacer/Aero Chamber 1 Act by Does 1 Device 0 Active Mouthpiece Does not not apply 9 apply Misc route NEEDED (use with inhalor, wheezing). levothyroxine Take 1 Tab by 30 Tab 4 Active (SYNTHROID) 150 MCG mouth BEFORE 9 Oral Tab BREAKFAST. cetirizine (ZYRTEC) Take 1 Tab by 30 Tab 5 Active 10 MG Oral Tab mouth DAILY. 9 Losartan Potassium TAKE 1 TABLET 30 Tab 5 Active 100 MG Oral Tab BY MOUTH 9 EVERY DAY metoprolol Take 1 Tab by 60 Tab 1 Active (LOPRESSOR) 25 MG mouth THREE 9 Oral Tab TIMES DAILY NEEDED (heart palpitaitons) . meclizine Take 1 Tab by 90 Tab 0 Active (ANTIVERT) 25 MG mouth TWO 9 Oral Tab TIMES DAILY NEEDED for dizziness/asim tigo. albuterol HFA INHALE 2 8.5 Inhaler 3 Active (VENTOLIN) 108 (90 PUFFS BY 9 Base) MCG/ACT MOUTH EVERY 4 Inhalation Aero HOURS SolnIndications: NEEDED FOR Mild intermittent WHEEZING asthma with acute exacerbation fluticasone [place] 2 1 Bottle 5 07/23/20 Active (FLONASE) 50 Sprays in 9 20 MCG/ACT Nasal nose DAILY. 2 Suspension sprays each nostril daily Clindamycin HCl 300 Take 1 Cap by 28 Cap 0 07/30/20 Discontinued MG Oral mouth FOUR 07 16 (Therapy CapIndications: TIMES DAILY. Completed) Acute recurrent sinusitis, unspecified location Hospital, Clinic, or Other Ordered Dose Route Frequency Start Date End Date Status Facility Administered Medication ibuprofen (MOTRIN) tablet 600 mg PO Q6 HRS PRN 02/06/2019 Active 600 mg documented as of this encounter (statuses as of 07/30/2019) Active Problems Problem Noted Date Essential hypertension [...] 08/15/2016 Generalized anxiety disorder 08/15/2016 Overview: Therapist [facility] Mild intermittent asthma without complication 08/15/2016 Overview: [facility] 2011 JASWINDER on CPAP Overview: [facility]- CPAP. AHI 35 on 07/23/17 [place]PS[place] [facility] documented as of this encounter (statuses as of 07/30/2019) Resolved Problems Problem Noted Date Resolved Date Problem 03/03/2019 05/07/2019 Right wrist pain 12/09/2017 05/07/2019 Calculus of gallbladder without cholecystitis without 09/10/2016 10/04/2016 obstruction Gallbladder polyp 08/15/2016 10/04/2016 documented as of this encounter (statuses as of 07/30/2019) Immunizations Name Administration Dates Next Due Influenza [...] Sign Reading Time Taken Comments Blood Pressure 110/72 07/30/2019 11:21 AM EDT Pulse - - Temperature - - Respiratory Rate - - Oxygen Saturation - - Inhaled Oxygen Concentration - - Weight 129.2 kg (284 lb 12.8 oz) 07/30/2019 11:21 AM EDT Height 177.8 cm (5' 10") 07/30/2019 11:21 AM EDT Body Mass Index 40.86 07/30/2019 11:21 AM EDT documented in this encounter Progress Notes Avelino Ramsey II, MD - 07/30/2019 11:30 AM EDTThe patient returns today for his mother consultation because he is still uncomfortable with his nose. Dr. pike did surgery on it and he can breathe a lot better. He is still having frontal area headaches and he is concerned that he was told that he has sinusitis. The patient only blows clear rhinorrhea from his nose. He had a CT scan in November 2018 that showed minimal thickening of the left maxillary sinus with all the other sinuses being normal. On reviewing his history the patient claims to have allergies to 29 different medications. We note that the patient is 5 foot 10 inches tall and weighs 287 pounds which makes him at extremelyhigh risk for reflux. The patient claims that he is allergic to almost all forms of H2 and PPI acidinhibitors. He is currently taking nothing to suppress gastric acid reflux. Otolaryngology System Review: Ears: He denies hearing loss, vertigo, tinnitus, ear pain, ear drainage or facial paralysis. Nose: He denies chronic nasal obstruction, nasal bleeding. Oral: He denies oral pain, oral bleeding, dental pain, oral ulcerations or sores. Pharynx: He denies frequent sore throats, nausea or vomiting, dysphagia or odynophagia. Larynx: He denies hoarseness, stridor or hemoptysis Sleep: He denies loud snoring, observed apnea in sleep or frequent daytime fatigue. Neck: He denies neck masses or neck pain Thyroid: He denies thyroid area masses, chronic fatigue, decreased or increased weight, feeling cold/chilly or excessively warm, diarrhea or constipation, undue sweatiness, anxiety or palpitations. Physical examination: The patient is alert, awake, and cooperative with the examination. The facial nerve works well in all divisions. The skin of the head and neck shows no suspicious lesions. The voice is smooth and the breathing is unlabored. The eyes show pupils that are equal round and reactive to light and accommodation. The extraocular muscles are intact. There is no nystagmus. Ears: The ear canals are clear, the tympanic membranes are intact, but the patient has pushed a stain of cerumen on each tympanic membrane. There is no earwax where it belongs. The nose shows a wonderfully midline septum with a widely patent right nasal airway. The patient did have some mucus between the medial middle turbinate and the nasal septum on the left side. The oral cavity looks normal. The tonsils are small or missing. The neck contains no masses or lymphadenopathy. Impression: We will have the patient irrigate his nose because that will certainly improve the patency of his nose. The differential diagnosis here is between chronic rhinitis and nasal aspiration of reflux. Plan: With the patient's insistence that he is allergic to 29 different agents he has our hands completely tied as to suppressing the gastric acid reflux. If the nasal irrigation does not work he may have to learn to live with what he has. documented in this encounter Plan of Treatment Date Type Specialty Care Team Description 08/03/2019 IPPR Cardiology 09/03/2019 Office Visit Pulmonary Sandro Iyer MD [address] [place] [address] [phone] 03/09/2020 Office Visit Cardiology Jeanie Whitt CRNP [address] [place] [address] 04/21/2020 Office Visit Endocrinology Cheri Redmond FNP [address] [facility] [place] [address] documented as of this encounter Goals Goal Patient Goal Associated Recent Patient-Stated? Author Type Problems Progress Blood Pressure Blood Pressure 110/72 No Earl, < 140/90 (07/30/2019 NATALIYA Hurst 11:21 AM EDT) Note: This is an individualized treatment (blood pressure) goal for Be Segovia: Displayed above (on the left) is your goal for blood pressure control. Your most recent blood pressure is also shown above, on the right. You should try to achieve blood pressures that are lower than your goal listed above (on the left). Weight loss vs. 18 mo Lifestyle 13.2 (07/30/2019 11:21 AM No Natali Elliott FNP max (lbs) [...] filedocumented in this encounter Visit Diagnoses Diagnosis LPRD (laryngopharyngeal reflux disease) - Primary Esophageal reflux Obstructive sleep apnea Obstructive sleep apnea (adult) (pediatric) Obesity, Class III, BMI 40-49.9 (morbid obesity) (HCC) Morbid obesity documented in this encounter (Home) [address] [place], [place] (Work) [id number] documented as of this encounter
[2019-09-06 07:59] VITALS: BP 137/90
--- NOTE | 2019-09-06 08:15 | UC ---
General HPI - HPI Summary HPI Summary: Pleasant 38 yo gentleman c/o progressive cough, congestion x 2 weeks. No fever / chills. no rash. No GI issues. Has albuterol (has some questions about it that he will refer to pharmacist, he does not have it with him today). No issues. 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 - History of Current Complaint Chief Complaint: UCRespiratory Stated Complaint: CHEST CONGESTION SORE THROAT COUGH Time Seen by Provider: 09/06/19 08:15 Hx Obtained From: Patient Pain Intensity: 2 - Allergy/Home Medications Allergies/Adverse Reactions: Allergies Allergy/AdvReac Type Severity Reaction Status Date / Time albuterol [From Ventolin HFA] Allergy Difficulty Verified 08/11/19 13:47 Breathing bupropion Allergy Difficulty Verified 08/11/19 13:47 Breathing cephalexin Allergy Rash Verified 08/11/19 13:47 citalopram [From Celexa] Allergy See Comment Verified 08/11/19 13:47 codeine Allergy Difficulty Verified 08/11/19 13:47 Breathing doxycycline Allergy Rash Verified 08/11/19 13:47 escitalopram [From Lexapro] Allergy See Comment Verified 08/11/19 13:47 famotidine Allergy Rash Verified 08/11/19 13:47 fluticasone Allergy Difficulty Verified 08/11/19 13:47 [From Advair Diskus] Breathing Iodinated Contrast Media Allergy Itching Verified 08/11/19 13:47 [Iodinated Contrast- Oral and IV Dye] moxifloxacin Allergy Hives Verified 08/11/19 13:47 nitrofurantoin Allergy Shortness Verified 08/11/19 13:47 of Breath omeprazole [From Prilosec] Allergy Rash Verified 08/11/19 13:47 Penicillins Allergy Rash Verified 08/11/19 13:47 Quinolones Allergy Rash Verified 08/11/19 13:47 salmeterol Allergy Difficulty Verified 08/11/19 13:47 [From Advair Diskus] Breathing sertraline [From Zoloft] Allergy Hallucinati Verified 08/11/19 13:47 ons sulfamethoxazole Allergy Rash Verified 08/11/19 13:47 [From Bactrim] trimethoprim [From Bactrim] Allergy Rash Verified 08/11/19 13:47 PMH/Surg Hx/FS Hx/Imm Hx Previously Healthy: Yes Other History Of: Negative For: HIV, Hepatitis B, Hepatitis C, Anticoagulant Therapy - Surgical History Surgical History: Yes Surgery Procedure, Year, and Place: RIGHT ELBOW RECONSTRUCTION SURGERY 1983,. SLEEP APNEA SURGERY 2010 - Tonsilectomy, uvula, stretching throat. CHOLECYSTECTOMY - 09/10/16, deviated septum. carpal tunnel 2018. cicumcision with biopsy. Nasal septum surgery 03/20/2019. rt shoulder surgery-bone spurs removed and bursitis 04/10/19 - Family History Known Family History: Positive: Cardiac Disease - two uncles in their 40s, no primary relatives, Hypertension, Diabetes, Other - TIA on paternal side, cancer on both sides, blood clots, asthma Family History: FHx of seasonal allergies - both parents. TIA on paternal side, cancer on both sides, blood clots - Social History Occupation: Employed Full-time Alcohol Use: None Substance Use Type: None Substance Use Comment - Amount & Last Used: benzo's in the past Smoking Status (MU): Former Smoker Type: Cigarettes Amount Used/How Often: 1/2 ppd Length of Time of Smoking/Using Tobacco: 15 yrs Have You Smoked in the Last Year: No When Did the Patient Quit Smoking/Using Tobacco: 2016 Household Exposure Type: Cigarettes - Immunization History Most Recent Influenza Vaccination: fall 2015 Most Recent Tetanus Shot: utd Most Recent Pneumonia Vaccination: fall 2015 Review of Systems All Other Systems Reviewed And Are Negative: Yes Constitutional: Positive: Negative Skin: Positive: Negative Eyes: Positive: Negative ENT: Positive: Nasal Discharge, Sinus Congestion, Other - see hpi Respiratory: Positive: Cough Cardiovascular: Positive: Negative Genitourinary: Positive: Negative Motor: Positive: Negative Neurovascular: Positive: Negative Musculoskeletal: Positive: Negative Neurological: Positive: Negative Psychological: Positive: Negative Is Patient Immunocompromised?: No Physical Exam Triage Information Reviewed: Yes Appearance: Well-Appearing - looks tired but nad, Well-Nourished Vital Signs: Initial Vital Signs Temp 99.1 F 09/06/19 07:57 Pulse 87 09/06/19 07:57 Resp 20 09/06/19 07:57 BP 137/90 09/06/19 07:57 Pulse Ox 99 09/06/19 07:57 Vital Signs Reviewed: Yes Eye Exam: Normal ENT: Positive: Pharyngeal erythema - mild post ph redness, no sores / exudates. c/w cough / post nasal drip, TM dull Neck exam: Normal Neck: Positive: Supple, Nontender, No Lymphadenopathy Respiratory Exam: Other - + rhonchorus cough, scattered wheeze Respiratory: Positive: No respiratory distress, No accessory muscle use Cardiovascular Exam: Normal Cardiovascular: Positive: RRR, No Murmur, Pulses Normal Abdominal Exam: Normal Abdomen Description: Positive: Nontender Musculoskeletal Exam: Normal Neurological Exam: Normal Psychological Exam: Normal Skin Exam: Normal - no visible or reported rash Course/Dx - Course Course Of Treatment: bp 137/91, c/w feeling ill. BP recheck by pcp in 4 weeks recommended. Re bronchitis / wheezing - Reviewed coa / tx plan. Questions as posed answered to the best of my ability. Declines work note. - Diagnoses Provider Diagnosis: Bronchitis, Wheezing Discharge ED - Sign-Out/Discharge Documenting (check all that apply): Patient Departure All imaging exams completed and their final reports reviewed: No Studies - Discharge Plan Condition: Stable Disposition: HOME Prescriptions: Azithromyxin SHANT (NF) [Z-Shant (Zithromax) 250 mg tabs #6] 2 tab PO .TODAY, THEN 1 DAILY #6 tab predniSONE TAB* [Deltasone 10 MG TAB*] 10 mg PO DAILY #20 tab Patient Education Materials: Acute Bronchitis (ED), Wheezing (ED) Referrals: Shad Uriostegui MD [Primary Care Provider] - Additional Instructions: Hydrate. Humidified air as possible. Check with your pharmacist about your albuterol medication. Follow up with primary care physician, per routine. Seek medical attention for worse or new problems. - Billing Disposition and Condition Condition: STABLE Disposition: Home
== END 2019-09-06 08:45 | disposition home or self-care (01) ==
LOC: UCEAST 07:47
DX: J40 Bronchitis, not specified as acute or chronic (principal); R06.2 Wheezing; R09.81 Nasal congestion; Z88.8 Allergy status to other drugs, medicaments and biological substances; Z88.1 Allergy status to other antibiotic agents; Z88.5 Allergy status to narcotic agent; Z91.041 Radiographic dye allergy status; Z88.0 Allergy status to penicillin; Z88.2 Allergy status to sulfonamides; Z87.891 Personal history of nicotine dependence
CPT/HCPCS: 99212; G0463

== ENCOUNTER 2019-10-09 19:52 | Emergency (ER) | payer OTHER ==
--- OUTSIDE RECORDS SUMMARY | 2019-10-09 19:59 | XMS REPORT | Summary of Care ---
:1980 Author Organization [facility] Address [address] [facility] [place] [address] Care Team Providers Name Role Phone Gila Shad Jacobson Primary Care Provider Reason for Visit Auth/Cert Status Reason Specialty Diagnoses / Procedures Referred By Contact Referred To Contact Encounter Details Date Type Department Care Team Description 09/29/2019 Hospital Encounter [facility] Jorge Wahl [facility] [address] [facility] [address] [place] [address] [address] [place] [address] [phone] Allergies Active Allergy Reactions Severity Noted Date [...] Rash 08/30/2016 Pepcid Complete Rash 08/30/2016 Prednisone DOG RACES MANAGER Reaction 08/23/2016 Prilosec Otc Rash 08/30/2016 Quinolones Rash 08/30/2016 Sertraline DOG RACES MANAGER Reaction, Other High 08/23/2016 Sulfamethoxazole-Trimetho Other 03/23/2019 prim Trimethoprim Rash 01/30/2018 Albuterol Sulfate Other 12/07/2016 Not effective Zantac Rash Medium 11/26/2017 Bupropion Respiratory Reaction 08/30/2016 Hives documented as of this encounter (statuses as of 09/30/2019) Medications Medication Sig Dispensed Refills Start End Status Date Date clonazePAM (KLONOPIN) Take 3 mg by 0 Active 1 MG Oral Tab mouth EVERY BEDTIME. Spacer/Aero Chamber 1 Act by Does 1 Device 0 04/23/20 Active Mouthpiece Does not not apply 19 apply Misc route NEEDED (use with inhalor, wheezing). cetirizine (ZYRTEC) 10 Take 1 Tab by 30 Tab 5 05/21/20 Active MG Oral Tab mouth DAILY. 19 Losartan Potassium 100 TAKE 1 TABLET 30 Tab 5 05/26/20 Active MG Oral Tab BY MOUTH 19 EVERY DAY albuterol HFA INHALE 2 8.5 Inhaler 3 07/03/20 Active (VENTOLIN) 108 (90 PUFFS BY 19 Base) MCG/ACT MOUTH EVERY 4 Inhalation Aero HOURS SolnIndications: Mild NEEDED FOR intermittent asthma WHEEZING with acute exacerbation fluticasone (FLONASE) [place] 2 1 Bottle 5 07/24/20 Active 50 MCG/ACT Nasal Sprays in 19 020 Suspension nose DAILY. 2 sprays each nostril daily atorvastatin (LIPITOR) Take 1 Tab by 90 Tab 1 08/17/20 Active 40 MG Oral mouth DAILY. 19 TabIndications: Mixed hyperlipidemia metoprolol (LOPRESSOR) Take 1 Tab by 60 Tab 1 08/17/20 Active 25 MG Oral Tab mouth THREE 19 TIMES DAILY NEEDED (heart palpitaitons) . levothyroxine Take 1 Tab by 30 Tab 4 08/20/20 Active (SYNTHROID) 150 MCG mouth BEFORE 19 Oral Tab BREAKFAST. trazodone (DESYREL) 50 Take 1 Tab by 30 Tab 0 09/02/20 Active MG Oral mouth EVERY 19 TabIndications: Sleep BEDTIME disturbance NEEDED (sleep). mometasone furoate Take 2 Puffs 1 Inhaler 5 09/03/20 Active (ASMANEX HFA) 200 by inhalation 19 MCG/ACT Inhalation DAILY. Aerosol meclizine (ANTIVERT) TAKE 1 TABLET 60 Tab 1 09/28/20 Active 25 MG Oral Tab BY MOUTH 19 TWICE A DAY NEEDED FOR DIZZINESS/ASIM TIGO methylPREDNISolone Take by 0 Active (MEDROL PO) mouth DAILY. meclizine (ANTIVERT) Take 1 Tab by 90 Tab 0 06/30/20 Discontinued 25 MG Oral Tab mouth TWO 19 019 (Reorder) TIMES DAILY NEEDED for dizziness/asim tigo. azithromycin 2 Tabs. 0 09/06/20 Discontinued (ZITHROMAX) 250 MG 19 019 (Provider Oral Tab Discontinued) Clindamycin HCl 300 MG Take 300 mg 0 09/14/20 Oral Cap by mouth 19 019 THREE TIMES DAILY. 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 Family history of early CAD 02/26/2017 Overview: Dad Irritable bowel syndrome with both constipation and diarrhea 11/14/2016 History of tobacco use 10/23/2016 Overview: 15 years quit 2016 S/P laparoscopic cholecystectomy 10/04/2016 Extreme obesity 08/15/2016 Obstructive sleep apnea 08/15/2016 Overview: S/p UVPP surgery 2010 retest for obstructive sleep apnea normal 2011 Hypothyroidism due to acquired atrophy of thyroid 08/15/2016 Generalized anxiety disorder 08/15/2016 Overview: Therapist [facility] Mild intermittent asthma without complication 08/15/2016 Overview: [facility] 2012 JASWINDER on CPAP Overview: [facility]- CPAP. AHI 35 on 07/23/17 NPSG through [facility] documented as of this encounter (statuses as of 09/30/2019) Resolved Problems Problem Noted Date Resolved Date Problem 03/03/2019 05/07/2019 Right wrist pain 12/09/2017 05/07/2019 Calculus of gallbladder without cholecystitis without 09/10/2016 10/04/2016 obstruction Gallbladder polyp 08/15/2016 10/04/2016 documented as of this encounter (statuses as of 09/30/2019) Immunizations Name Administration Dates Next Due Influenza [...] Sign Reading Time Taken Comments Blood Pressure 112/78 09/29/2019 2:54 PM EST Pulse 67 09/29/2019 2:54 PM EST Temperature 36.9 09/29/2019 2:54 PM EST C (98.4 F) Respiratory Rate 19 09/29/2019 2:54 PM EST Oxygen Saturation 96% 09/29/2019 2:54 PM EST Inhaled Oxygen Concentration - - Weight 120.2 kg (265 lb) 09/29/2019 1:51 PM EST Height 177.8 cm (5' 10") 09/29/2019 1:51 PM EST Body Mass Index 38.02 09/29/2019 1:51 PM EST documented in this encounter Discharge Summaries Jorge Wahl MD - 09/29/2019 2:54 PM ESTGUTHRIE SP/OP DISCHARGE NOTE [place] [address] PATIENT: Be Segovia SURGEON: Jorge Wahl MD : 1980 DATE OF SURGERY: 09/29/2019 Procedure: Procedure(s): RELEASE TRIGGER FINGER rt middle Principle Diagnosis: Trigger finger, right middle finger Associated Condition(s): Same as pre-op, unless otherwise indicated Mental Status: Same as pre-op, unless otherwise indicated. Condition: Stable, unless otherwise indicated Disposition of Care: Discharge to home. Follow-up with Dr. Wahl in two weeks. Other Comments: n/a Author: Jorge Wahl MD documented in this encounter Discharge Instructions InstructionsJorge Wahl MD - 09/29/2019Provider's Instructions 1. Diet: As before unless otherwise instructed. 2. Medications: Continue all medications unless otherwise instructed, contact primary physician if any questions. 3. You could have numb areas up to 24 hours, be careful with temperature until all feeling has returned to affected area. 4. As the local anesthetic wears off, you may have pain in the area, use medication prescribed. 5. Apply ice to the site today and elevate (first 24 hours) 6. Dressing: Keep dressing on for three days then remove and apply band-aid. May shower, but don't get dressing wet (keep it covered). Stitches will be removed at follow up appointment. 7. Pain Medications: ibuprofen and tylenol 8. What You need to know following Sedation/Anesthesia: ? Call 911 or have someone else call if you have trouble breathing or cannot be woken. ? Go to emergency department if you have any concerns and cannot reach physician ? Contact your healthcare provider if you have chills or fever, skin is itchy, swollen ir you have peggy, nausea/vomiting for more than 8 hours after procedure , and any questions or concerns about your condition or care. 9. Self-care: ? Have someone stay with you for 24 hours (unless you had local anesthesia) ? Rest and do quiet activities for 24 hours ? Do not drive or use dangerous machines or tools for 24 hours, no important decisions for 24 hours (unless you had local anesthesia) ? Drink liquids as directed (start with clear liquids as juice/broth, if tolerated go to regular diet) ? Do not drink alcohol or take medications that make you drowsy for 24 hours Other instructions: Follow up appointment with surgeon: see OT at two weeks Reason for Admission or Diagnosis:Trigger finger, right middle finger Discharge Provider: Jorge Wahl MD Attending: Jorge Wahl MD Time: 14:54 If any problems occur, please contact your doctor immediately. If you can not reach your doctor, but feel that your symptoms warrant a doctor's attention, go to the emergency room that is closest to you. It is your responsibility to follow your doctor's instructions including those above. Nurse's Instructions Problems to report to your Physician: Excessive pain or discomfort Fever > 100.5 degrees Difficulty breathing Increase or smell in wound drainage *Please Return Patient Satisfaction Survey* documented in this encounter Plan of Treatment Date Type Specialty Care Team Description 10/15/2019 Office Visit Orthopedics Jorge Wahl MD [address] [facility] [address] [place] [address] 03/03/2020 Office Visit Pulmonary Sandro Iyer MD [address] [place] [address] 03/09/2020 Office Visit Cardiology Jeanie Whitt CRNP [address] [place] [address] 04/21/2020 Office Visit Endocrinology Cheri Redmond FNP [address] [facility] [place] [address] documented as of this encounter Goals Goal Patient Goal Associated Recent Patient-Stated? Author Type Problems Progress Blood Pressure Blood Pressure 112/78 No Earl, < 140/90 (09/29/2019 NATALIYA Hurst 2:54 PM EST) Note: This is an individualized treatment (blood pressure) goal for Be Segovia: Displayed above (on the left) is your goal for blood pressure control. Your most recent blood pressure is also shown above, on the right. You should try to achieve blood pressures that are lower than your goal listed above (on the left). Work with your Marketing Analytics Lead General No Love Matias PA-C Note: This is an individualized treatment (frequent ED use) goal for Be Segovia: Please work with your Marketing Analytics Lead, who will assist you in meeting your goals of care. Weight loss vs. 18 mo Lifestyle 33 (09/29/2019 1:51 PM No Natali Elliott FNP max (lbs) [...] Procedure Name Priority Date/Time Associated Diagnosis Comments RELEASE TRIGGER Planned Trip to OR 09/29/2019 3:45 PM Trigger finger, FINGER EST right middle finger Special Needs PAT done, spoke with pt over the phone. Reviewed current medications and health history. Discussed building location, the need for a coach driver and NPO status. Pt is aware he will get a call the day before his procedure with an arrival time. All question ans wered, documented in this encounter Results Not on filedocumented in this encounter Visit Diagnoses Diagnosis Trigger finger, right middle finger documented in this encounter Administered Medications Medication Order MAR Action Action Date Dose Rate Site lactated ringers IV Continued from 09/29/2019 3:10 PM 100 mL/hr Intravenous, at 100 Procedure EST mL/hr, CONTINUOUS, Starting Sat09/29/19 at 1510, Until Sat09/29/19 at 1721 New Bag 09/29/2019 2:09 PM EST 100 mL/hr documented in this encounter (Home) [address], [place] (Work) [id number] documented as of this encounter
--- OUTSIDE RECORDS SUMMARY | 2019-10-09 19:59 | XMS REPORT ---
:1980 Author Organization [facility] Care Team Providers Name Role Phone ROSEANNE BARCENAS Primary Care Physician Unavailable Allergies, Adverse Reactions, Alerts Allergy Code CodeSystem Reaction Severity Criticality Status Start Substance Date Moderate Medications Medication Medication Medication Start Stop Route Dose Status Fill Code CodeSystem Date Date Instructions clonazepam 19741205 RxNorm 2019-07 oral 1 mg completed for 1-03 tablet day(s) clonazepam 19741205 RxNorm 2018-12 oral 1 mg completed for 8-02 tablet day(s) clonazepam 19741205 RxNorm 2019-05 oral 1 mg completed for 0-03 tablet day(s) Problems Problem Name Code CodeSystem Alternate Alternate Start End Status Narrative Code CodeSystem Date Date Generalized 20898599 SNOMED-CT 2019-0 Active anxiety 3-22 disorder Dysthymia [id number] SNOMED-CT 2019- Active 4-03 Generalized [id number] SNOMED-CT 2019-0 Active anxiety 3-22 disorder Generalized [id number] SNOMED-CT 2019-0 Active anxiety 3-22 disorder Relevant diagnostic tests/laboratory data Narrative No Information Procedures Procedure Code CodeSystem Target Date of Status Service Device Device Device Name Site Procedure Delivery Code Name UID Location Psychotherap [id number] SNOMED-CT () 2019-07-22 complete Mental y, 45 04 d Health- minutes with [address], [id number] [id number] Psychotherap [id number] SNOMED-CT () 2019-08-07 complete Mental y, 45 04 d Health- minutes with [address], [id number] [id number] Psychotherap [id number] SNOMED-CT () 2019-08-20 complete Mental y, 45 04 d Health- minutes with [address], [id number] [id number] Psychotherap [id number] SNOMED-CT () 2019-08-31 complete Mental y, 45 04 d Health- minutes with [facility] patient [address], [id number] Psychotherap [id number] SNOMED-CT () 2019-02-02 complete Mental y, 45 04 d Health- minutes with [facility] patient [address], [phone] [phone] Psychotherap [id number] SNOMED-CT () 2019-04-28 complete Mental y, 45 04 d Health- minutes with [facility] patient [address], [phone] [phone] Psychotherap [id number] SNOMED-CT () 2019-05-11 complete Mental y, 45 04 d Health- minutes with [facility] patient [address], [phone] [phone] Psychotherap [id number] SNOMED-CT () 2019-05-20 complete Mental y, 45 04 d Health- minutes with [facility] patient [address], [phone] [phone] Psychotherap [id number] SNOMED-CT () 2019-03-16 complete Mental y, 45 04 d Health- minutes with [facility] patient [address], [phone] [id number] Psychotherap [id number] SNOMED-CT () 2019-03-30 complete Mental y, 45 04 d Health- minutes with [facility] patient [address], [phone] Office or [id number] SNOMED-CT () 2019-06-30 complete Mental other 7 d Health- outpatient [facility] visit for [address], established [phone] patient, [id number] which requires at least 2 of these 3 munson components: An expanded problem focused history; An expanded problem focused examination; Medical decision making of [facility] Office or [id number] SNOMED-CT () 2019-08-04 complete Mental other 6 d Health- outpatient [place] visit for [address], established [phone] patient, [id number] which requires at least 2 of these 3 munson components: A problem focused history; A problem focused examination; Straightforw deandra medical decision making. [place] Office or [id number] SNOMED-CT () 2019-03-31 complete Mental other 6 d Health- outpatient [facility] visit for [address], [facility], of an [place], established [phone] patient, [phone] which requires at least 2 of these 3 munson components: A problem focused history; A problem focused examination; Straightforw deandra medical decision making. Aliyah SNOMED-CT () 2019-03-02 complete Mental d Health- [address], [phone] SNOMED-CT () 2019-04-17 complete Mental d [address], [phone] SNOMED-CT () 2019-05-05 complete Mental d [address], [phone] Encounters/Encounter Diagnoses Encounter Encounter Diagnosis Diagnosis Name Diagnosis Date of Service Name Code Code CodeSystem Diagnosis Delivery Location [id number] Generalized SNOMED-CT [facility] , , , Vital Signs No Information Social History Element Description Description Start End Code CodeSystem AdditionalInfo Date Date SexAssignedAtBirth Male 1981-0 M AdministrativeGender 2-16 Hospital Discharge Instructions Reason For Referral Medical Equipment FDA Assessments
--- OUTSIDE RECORDS SUMMARY | 2019-10-09 19:59 | XMS REPORT | Summary of Care ---
:1980 Author Organization [facility] Address [address] [place] [address] Care Team Providers Name Role Phone Shad Uriostegui Primary Care Provider Reason for Visit Reason Comments Follow Up right middle finger trigger release Encounter Details Date Type Department Care Team Description 10/06/2019 Office Visit [facility] - Britt Leal, S/P trigger finger Morrison RPA-C release (Primary Dx) [facility] [address] [facility] [address] [place] [address] [place] [address] [phone] Allergies Active Allergy Reactions Severity Noted Date [...] Rash 08/30/2016 Pepcid Complete Rash 08/30/2016 Prednisone GAMES DEALER Reaction 08/23/2016 Prilosec Otc Rash 08/30/2016 Quinolones Rash 08/30/2016 Sertraline GAMES DEALER Reaction, Other High 08/23/2016 Sulfamethoxazole-Trimetho Other 03/23/2019 prim Trimethoprim Rash 01/30/2018 Albuterol Sulfate Other 12/07/2016 Not effective Zantac Rash Medium 11/26/2017 Bupropion Respiratory Reaction 08/30/2016 Hives documented as of this encounter (statuses as of 10/06/2019) Medications Medication Sig Dispensed Refills Start Date End Date Status clonazePAM (KLONOPIN) 1 Take 3 mg by 0 Active MG Oral Tab mouth EVERY BEDTIME. Spacer/Aero [...] MG Oral Tab BY MOUTH EVERY DAY albuterol HFA (VENTOLIN) INHALE 2 PUFFS 8.5 Inhaler 3 07/03/2019 Active 108 (90 Base) MCG/ACT BY MOUTH EVERY Inhalation Aero 4 HOURS SolnIndications: Mild NEEDED FOR intermittent asthma with WHEEZING acute exacerbation fluticasone (FLONASE) 50 [place] 2 Sprays 1 Bottle 5 07/24/2019 Active MCG/ACT Nasal Suspension in nose DAILY. 0 2 sprays each nostril daily atorvastatin (LIPITOR) Take 1 Tab by 90 Tab 1 08/17/2019 Active 40 MG Oral mouth DAILY. TabIndications: Mixed hyperlipidemia metoprolol (LOPRESSOR) Take 1 Tab by 60 Tab 1 08/17/2019 Active 25 MG Oral Tab mouth THREE TIMES DAILY NEEDED (heart palpitaitons). levothyroxine Take 1 Tab by 30 Tab 4 08/20/2019 Active (SYNTHROID) 150 MCG Oral mouth BEFORE Tab BREAKFAST. trazodone (DESYREL) 50 Take 1 Tab by 30 Tab 0 09/02/2019 Active MG Oral TabIndications: mouth EVERY Sleep disturbance BEDTIME NEEDED (sleep). mometasone furoate Take 2 Puffs by 1 Inhaler 5 09/03/2019 Active (ASMANEX HFA) 200 inhalation MCG/ACT Inhalation DAILY. Aerosol meclizine (ANTIVERT) 25 TAKE 1 TABLET 60 Tab 1 09/28/2019 Active MG Oral Tab BY MOUTH TWICE A DAY NEEDED FOR DIZZINESS/VERTI GO methylPREDNISolone Take by mouth 0 Active (MEDROL PO) DAILY. Hospital, Clinic, or Other Ordered Dose Route Frequency Start Date End Date Status Facility Administered Medication ibuprofen (MOTRIN) tablet 600 mg PO Q6 HRS PRN 02/06/2019 Active 600 mg documented as of this encounter (statuses as of 10/06/2019) Active Problems Problem Noted Date S/P trigger finger release 10/06/2019 Trigger finger, right middle finger 09/10/2019 Overview: Added automatically from request for surgery [id number] Essential hypertension 05/07/2019 Seasonal allergies 05/07/2019 S/P [...] 08/15/2016 Generalized anxiety disorder 08/15/2016 Overview: Therapist [facility] Mild intermittent asthma without complication 08/15/2016 Overview: [facility] 2012 JASWINDER on CPAP Overview: [facility]- CPAP. AHI 35 on 07/23/17 NPSG through [facility] documented as of this encounter (statuses as of 10/06/2019) Resolved Problems Problem Noted Date Resolved Date Problem 03/03/2019 05/07/2019 Right wrist pain 12/09/2017 05/07/2019 Calculus of gallbladder without cholecystitis without 09/10/2016 10/04/2016 obstruction Gallbladder polyp 08/15/2016 10/04/2016 documented as of this encounter (statuses as of 10/06/2019) Immunizations Name Administration Dates Next Due Influenza [...] - Inhaled Oxygen Concentration - - Weight 132 kg (291 lb) 10/06/2019 3:35 PM EST Height 177.8 cm (5' 10") 10/06/2019 3:35 PM EST Body Mass Index 41.75 10/06/2019 3:35 PM EST documented in this encounter Progress Notes Britt Leal, KARLA-C - 10/06/2019 3:15 PM EST Name: Be Segovia : 1980 Date of Service: 10/06/2019 SUBJECTIVE: History of Present Illness: Be Segovia is a 38-y.o. male who presents to the office today for a wound check. Dr. Maysdid a Right middle trigger finger release 09/29/19. Thought it was not healing correctly . OBJECTIVE: Physical Examination: Ht 5' 10" (1.778 m) Wt 291 lb (132 kg) BMI 41.75 kg/m2 The patient's right middle trigger finger incision is well approximated. No drainage or erythema . He is neurovascularly intact distally. ASSESSMENT: ICD-9-CM ICD-10-CM 1. S/P trigger finger release V45.89 Z98.890 PLAN: Will return for his regular appointment. Author: JENIFER Dickinson 10/06/2019 16:14 documented in this encounter Plan of Treatment Date Type Specialty Care Team Description 10/15/2019 Office Visit Orthopedics Jorge Wahl MD [address] [facility] [address] [place] [address] 03/03/2020 Office Visit Pulmonary Sandro Iyer MD [address] [place] [address] 03/09/2020 Office Visit Cardiology Jeanie Whitt CRNP [address] [facility] [place] [address] 04/21/2020 Office Visit Endocrinology [...] above (on the left). Work with your Core Inserter Love Wall PA-C Note: This is an individualized treatment (frequent ED use) goal for Be Segovia: Please work with your Core Inserter, who will assist you in meeting your goals of care. Weight loss vs. 18 mo Lifestyle 7 (10/06/2019 3:35 PM Natali Jones FNP max (lbs) >= [...] in this encounter Visit Diagnoses Diagnosis S/P trigger finger release - Primary documented in this encounter (Home) [address] [place], [place] (Work) [id number] documented as of this encounter
--- OUTSIDE RECORDS SUMMARY | 2019-10-09 19:59 | XMS REPORT | Summary of Care ---
:1980 Author Organization [facility] Address [address] [facility] [place] [address] Care Team Providers Name Role Phone Shad Uriostegui Primary Care Provider Reason for Visit Reason Comments ER F/U Patient went to [facility] three weeks ago for bronchitis and given a zpak, then went [facility] on 09/14/2019 and was given another antibiotic that he is still on with prednisone. Encounter Details Date Type Department Care Team Description 09/22/2019 Office Visit [facility] Shad Uriostegui, Mild intermittent asthma with acute exacerbation (Primary Dx); Medicine MD History of tobacco use; [address] Essential hypertension; [place], [place] [id number] [place] [address] Insurance coverage problems; [phone] Extreme obesity Allergies Active Allergy Reactions Severity Noted Date [...] Rash 08/30/2016 Pepcid Complete Rash 08/30/2016 Prednisone DIRECTOR SCRIPT Reaction 08/23/2016 Prilosec Otc Rash 08/30/2016 Quinolones Rash 08/30/2016 Sertraline DIRECTOR SCRIPT Reaction, Other High 08/23/2016 Sulfamethoxazole-Trimetho Other 03/23/2019 prim Trimethoprim Rash 01/30/2018 Albuterol Sulfate Other 12/07/2016 Not effective Zantac Rash Medium 11/26/2017 Bupropion Respiratory Reaction 08/30/2016 Hives documented as of this encounter (statuses as of 09/22/2019) Medications Medication Sig Dispensed Refills Start End Date Status Date clonazePAM Take 3 mg by 0 Active (KLONOPIN) 1 MG mouth EVERY Oral Tab BEDTIME. Spacer/Aero 1 Act by Does 1 Device 0 Active Chamber Mouthpiece not apply 9 Does not apply route Misc NEEDED (use with inhalor, wheezing). cetirizine Take 1 Tab by 30 Tab 5 Active (ZYRTEC) 10 MG mouth DAILY. 9 Oral Tab Losartan Potassium TAKE 1 TABLET 30 Tab 5 Active 100 MG Oral Tab BY MOUTH EVERY 9 DAY meclizine Take 1 Tab by 90 Tab 0 Active (ANTIVERT) 25 MG mouth TWO 9 Oral Tab TIMES DAILY NEEDED for dizziness/vert igo. albuterol HFA INHALE 2 PUFFS 8.5 Inhaler 3 Active (VENTOLIN) 108 (90 BY MOUTH EVERY 9 Base) MCG/ACT 4 HOURS Inhalation Aero NEEDED FOR SolnIndications: WHEEZING Mild intermittent asthma with acute exacerbation fluticasone [place] 2 Sprays 1 Bottle 5 07/23/20 Active (FLONASE) 50 in nose DAILY. 9 20 MCG/ACT Nasal 2 sprays each Suspension nostril daily atorvastatin Take 1 Tab by 90 Tab 1 Active (LIPITOR) 40 MG mouth DAILY. 9 Oral TabIndications: Mixed hyperlipidemia metoprolol Take 1 Tab by 60 Tab 1 Active (LOPRESSOR) 25 MG mouth THREE 9 Oral Tab TIMES DAILY NEEDED (heart palpitaitons). levothyroxine Take 1 Tab by 30 Tab 4 Active (SYNTHROID) 150 mouth BEFORE 9 MCG Oral Tab BREAKFAST. trazodone Take 1 Tab by 30 Tab 0 Active (DESYREL) 50 MG mouth EVERY 9 Oral BEDTIME TabIndications: NEEDED Sleep disturbance (sleep). mometasone furoate Take 2 Puffs 1 Inhaler 5 Active (ASMANEX HFA) 200 by inhalation 9 MCG/ACT Inhalation DAILY. Aerosol Clindamycin HCl Take 300 mg by 0 09/24/20 Active 300 MG Oral Cap mouth THREE 9 19 TIMES DAILY. azithromycin 2 Tabs. 0 09/22/20 Discontinued (ZITHROMAX) 250 MG 9 19 (Provider Oral Tab Discontinued) Hospital, Clinic, or Other Ordered Dose Route Frequency Start Date End Date Status Facility Administered Medication ibuprofen (MOTRIN) tablet 600 mg PO Q6 HRS PRN 02/06/2019 Active 600 mg documented as of this encounter (statuses as of 09/22/2019) Active Problems Problem Noted Date Trigger finger, right middle finger 09/10/2019 Overview: Added automatically from request for surgery [id number] Essential hypertension 05/07/2019 Seasonal allergies 05/07/2019 S/P [...] 08/15/2016 Generalized anxiety disorder 08/15/2016 Overview: Therapist [facility] Mild intermittent asthma without complication 08/15/2016 Overview: [facility] 2011 JASWINDER on CPAP Overview: [facility]. AHI 35 on 07/23/17 NPSG through [facility] documented as of this encounter (statuses as of 09/22/2019) Resolved Problems Problem Noted Date Resolved Date Problem 03/03/2019 05/07/2019 Right wrist pain 12/09/2017 05/07/2019 Calculus of gallbladder without cholecystitis without 09/10/2016 10/04/2016 obstruction Gallbladder polyp 08/15/2016 10/04/2016 documented as of this encounter (statuses as of 09/22/2019) Immunizations Name Administration Dates Next Due Influenza [...] Sign Reading Time Taken Comments Blood Pressure 132/70 09/22/2019 4:41 PM EST Pulse 68 09/22/2019 4:41 PM EST Temperature - - Respiratory Rate - - Oxygen Saturation 94% 09/22/2019 4:41 PM EST Inhaled Oxygen Concentration - - Weight 127.5 kg (281 lb) 09/22/2019 4:41 PM EST Height 177.8 cm (5' 10") 09/22/2019 4:41 PM EST Body Mass Index 40.32 09/22/2019 4:41 PM EST documented in this encounter Patient Instructions Patient InstructionsShad Uriostegui MD - 09/22/2019 4:40 PM ESTUse asmanex metered dose inhaler Ok to use albuterol proair four times daily As needed Finish up Prednisone the lungs sound good Bariatric surgery consult at [facility] is a good idea documented in this encounter Progress Notes Shad Uriostegui MD - 09/22/2019 4:40 PM EST PATIENT: Be Segovia : 1980 DATE OF SERVICE: 09/22/2019 CHIEF COMPLAINT: Chief Complaint Patient presents with ER F/U Patient went to [facility] three weeks ago for bronchitis and given a zpak , then went [facility] on 09/14/2019 and was given another antibiotic that he is still on with prednisone. Subjective HISTORY OF PRESENT ILLNESS: Be Segovia is a 38-y.o. male. HPI Persistent cough using Prednisone and finishing course clindamycin no mucous and he is feeling better he is not using inhaled corticosteroids his insurance does not cover asmanex and he got samples from pulmonary MD he has one sample left at home at all he uses PELON metered dose inhaler as needed about twice daily No colored sputum or blood nofevers Patient Active Problem List Diagnosis Extreme obesity [...] S/P nasal septoplasty Essential hypertension Seasonal allergies Trigger finger, right middle finger Family History Problem Relation Age of Onset Cancer Maternal Aunt stomach Cancer Maternal Grandmother lung Heart Maternal Grandmother [place] Cancer Other colon Hypertension Mother Hypertension Father [...] Clindamycin HCl 300 MG Oral Cap Take 300 mg by mouth THREE TIMES DAILY. clonazePAM (KLONOPIN) 1 MG Oral Tab Take 3 mg by mouth EVERY BEDTIME. fluticasone (FLONASE) 50 MCG/ACT Nasal Suspension [place] 2 Sprays in nose DAILY. 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 Physical Exam There is a cobblestone appearance to the posterior oropharynx. Chest is clear , no wheezing or rales. Normal symmetric air entry throughout both lung sandoval. No chest wall deformities or tenderness. I spent 25 minutes with the patient, greater than half of this in direct face to face counseling addressing the current condition and the plan of care. ASSESSMENT / IMPRESSION: ICD-9-CM ICD-10-CM 1. Mild intermittent asthma with acute exacerbation finish Prednisone use inhaled corticosteroids asmanex 493.92 J45.21 2. History of tobacco use V15.82 Z87.891 3. Essential hypertension at goal 401.9 I10 4. Insurance coverage problems ra difficulty to afford inhaled corticosteroids V60.89 Z59.8 5. Extreme obesity bariatric referral is good idea 278.00 E66.8 Patient Instructions Use asmanex metered dose inhaler Ok to use albuterol proair four times daily As needed Finish up Prednisone the lungs sound good Bariatric surgery consult at [facility] is a good idea Shad Uriostegui MD 09/22/2019 17:01 documented in this encounter Plan of Treatment Date Type Specialty Care Team Description [facility] [address] [facility] [address] [place] [address] [phone] [facility] rt middle [address] [facility] [address] [place] [address] [phone] 09/30/2019 Office Visit Endocrinology Cheri Redmond FNP [address] [place] [address] 10/15/2019 Office Visit Orthopedics Jorge Wahl MD [address] [facility] [address] [place] [address] [phone] 03/03/2020 Office Visit Pulmonary Sandro Iyer MD [address] [place] [address] [phone] 03/09/2020 Office Visit Cardiology Jeanie Whitt CRNP [address] [place] [place] [address] 04/21/2020 Office Visit Endocrinology Cheri Redmond FNP [address] [place] [address] documented as of this encounter Goals Goal Patient Goal Associated Recent Patient-Stated? Author Type Problems Progress Blood Pressure Blood Pressure 132/70 No Earl, < 140/90 (09/22/2019 NATALIYA Hurst 4:41 PM EST) Note: This is an individualized treatment (blood pressure) goal for Be Segovia: Displayed above (on the left) is your goal for blood pressure control. Your most recent blood pressure is also shown above, on the right. You should try to achieve blood pressures that are lower than your goal listed above (on the left). Work with your Machine Operator Transplanter General Love Solis PA-C Note: This is an individualized treatment (frequent ED use) goal for Be Segovia: Please work with your Machine Operator Transplanter, who will assist you in meeting your goals of care. Weight loss vs. 18 mo Lifestyle 17 (09/22/2019 4:41 PM Natali Jones FNP max (lbs) >= [...] filedocumented in this encounter Visit Diagnoses Diagnosis Mild intermittent asthma with acute exacerbation - Primary Unspecified asthma, with exacerbation History of tobacco use Personal history of tobacco use, presenting hazards to health Essential hypertension Unspecified essential hypertension Insurance coverage problems Other specified housing or economic circumstances Extreme obesity Morbid obesity documented in this encounter (Home) [address] [place], [place] ([place]) [id number] documented as of this encounter
--- OUTSIDE RECORDS SUMMARY | 2019-10-09 19:59 | XMS REPORT | Summary of Care ---
:1980 Author Organization [facility] Address [address] [place] [address] Care Team Providers Name Role Phone Shad Uriostegui Kavon Primary Care Provider Reason for Visit Reason Comments New Patient Right MF trigger finger Encounter Details Date Type Department Care Team Description 09/10/2019 Office Visit [facility] - Jorge Wahl, Trigger middle finger Mily DRAKE of right hand [address] (Primary Dx) [address] [place], [place] [id number] [place] [address] [phone] [phone] Allergies Active Allergy Reactions Severity Noted Date [...] Rash 08/30/2016 Pepcid Complete Rash 08/30/2016 Prednisone SOLDER CREAM MAKER Reaction 08/23/2016 Prilosec Otc Rash 08/30/2016 Quinolones Rash 08/30/2016 Sertraline SOLDER CREAM MAKER Reaction, Other High 08/23/2016 Sulfamethoxazole-Trimetho Other 03/23/2019 prim Trimethoprim Rash 01/30/2018 Albuterol Sulfate Other 12/07/2016 Not effective Zantac Rash Medium 11/26/2017 Bupropion Respiratory Reaction 08/30/2016 Hives documented as of this encounter (statuses as of 09/10/2019) Medications Medication Sig Dispensed Refills Start Date [...] intermittent asthma with acute exacerbation fluticasone (FLONASE) Tiro 2 Sprays 1 Bottle 5 07/24/2019 07/23/2020 [...] HFA) 200 inhalation MCG/ACT Inhalation DAILY. Aerosol azithromycin 2 Tabs. 0 09/06/2019 Active (ZITHROMAX) 250 MG Oral Tab Hospital, Clinic, or Other Ordered Dose Route Frequency Start Date End Date Status Facility Administered Medication ibuprofen (MOTRIN) tablet 600 mg PO Q6 HRS PRN 02/06/2019 Active 600 mg documented as of this encounter (statuses as of 09/10/2019) Active Problems Problem Noted Date Essential hypertension [...] Mild intermittent asthma without complication 08/15/2016 Overview: [facility] 2011 JASWINDER on CPAP Overview: [facility]- CPAP. AHI 35 on 07/23/17 NPSG through [facility] documented as of this encounter (statuses as of 09/10/2019) Resolved Problems Problem Noted Date Resolved Date Problem 03/03/2019 05/07/2019 Right wrist pain 12/09/2017 05/07/2019 Calculus of gallbladder without cholecystitis without 09/10/2016 10/04/2016 obstruction Gallbladder polyp 08/15/2016 10/04/2016 documented as of this encounter (statuses as of 09/10/2019) Immunizations Name Administration Dates Next Due Influenza [...] - - Weight 132 kg (291 lb) 09/10/2019 10:10 AM EST Height 177.8 cm (5' 10") 09/10/2019 10:10 AM EST Body Mass Index 41.75 09/10/2019 10:10 AM EST documented in this encounter Progress Notes Jorge Wahl MD - 09/10/2019 10:00 AM EST Name: Be Segovia : 1980 Date of service: 09/10/2019 Chief Complaint Patient presents with New Patient Right MF trigger finger HPI: Be Segovia is a 38-y.o. y/o male, who presents at the request of Abelardo Alvarado for evaluation. Long history of right middle finger triggering. The patient had a injection a year ago. It resolved the problem for some time however it recurred and has been getting worse to the point where it hurts as much as ever. Patient would like to undergo surgery. PAST MEDICAL HISTORY: He has a past medical history of Anxiety, Asthma, Cardiac dysrhythmia, Disorder of thyroid, Dizziness, GERD (gastroesophageal reflux disease), Headache disorder, High cholesterol, Hypertension, Hypothyroidism, JASWINDER on CPAP, Osteoarthritis, Otitis media, and Sinusitis, chronic. PAST SURGICAL HISTORY: He has a past surgical history that includes elbow arthroplasty nec (Right);tonsillectomy; nasal sinus operations; circumcision; laparoscopic cholecystectomy (N/A, 09/10/2016);egd (N/A, 11/26/2017); pr revise median n/carpal tunnel surg (Right, 01/15/2018); carpal tunnel release (Right); pr removal gallbladder (2015); pr reconstr nose+sylvia septal repair (N/A, 2018); arthroscopy, shoulder acromioplasty, distal clavicle (Right, 04/10/2019) ; and pr remove tonsils/adenoids,10+ y/o. MEDICATIONS: Current Outpatient Medications: albuterol HFA (VENTOLIN) 108 (90 Base) MCG/ACT Inhalation Aero Soln, INHALE 2 PUFFS BY MOUTHEVERY 4 HOURS NEEDED FOR WHEEZING, Disp: 8.5 Inhaler, Rfl: 3 atorvastatin (LIPITOR) 40 MG Oral Tab, Take 1 Tab by mouth DAILY., Disp : 90 Tab, Rfl: 1 azithromycin (ZITHROMAX) 250 MG Oral Tab, 2 Tabs., Disp: , Rfl: cetirizine (ZYRTEC) 10 MG Oral Tab, Take 1 Tab by mouth DAILY., Disp: 30 Tab, Rfl: 5 clonazePAM (KLONOPIN) 1 MG Oral Tab, Take 3 mg by mouth EVERY BEDTIME., Disp: , Rfl: fluticasone (FLONASE) 50 MCG/ACT Nasal Suspension, Tiro 2 Sprays in nose DAILY. 2 sprays each nostril daily, Disp: 1 Bottle, Rfl: 5 levothyroxine (SYNTHROID) 150 MCG Oral Tab, Take 1 Tab by mouth BEFORE BREAKFAST., Disp: 30 Tab, Rfl: 4 Losartan Potassium 100 MG Oral Tab, TAKE 1 TABLET BY MOUTH EVERY DAY, Disp: 30 Tab, Rfl: 5 meclizine (ANTIVERT) 25 MG Oral Tab, Take 1 Tab by mouth TWO TIMES DAILY NEEDED for dizziness/vertigo., Disp: 90 Tab, Rfl: 0 metoprolol (LOPRESSOR) 25 MG Oral Tab, Take 1 Tab by mouth THREE TIMES DAILY NEEDED (heart palpitaitons)., Disp: 60 Tab, Rfl: 1 mometasone furoate (ASMANEX HFA) 200 MCG/ACT Inhalation Aerosol, Take 2 Puffs by inhalation DAILY., Disp: 1 Inhaler, Rfl: 5 Spacer/Aero Chamber Mouthpiece Does not apply Misc, 1 Act by Does not apply route NEEDED (use with inhalor, wheezing)., Disp: 1 Device, Rfl: 0 trazodone (DESYREL) 50 MG Oral Tab, Take 1 Tab by mouth EVERY BEDTIME NEEDED (sleep)., Disp: 30 Tab, Rfl: 0 Current Facility-Administered Medications: ibuprofen (MOTRIN) tablet 600 mg, 600 mg, Oral, Q6H PRN, Abelardo Alvarado MD ALLERGIES: He is allergic to sertraline; zantac; advair diskus; avelox [ moxifloxacin]; bactrim [sulfamethoxazole w/trimethoprim]; biaxin [clarithromycin ]; citalopram; codeine; doxy; doxycycline; dye intravenous radiographic imaging contrast; escitalopram; famotidine; iv dye [ct dye]; keflex; lexapro;morphine; pantoprazole; penicillins; pepcid complete; prednisone; prilosec otc; quinolones ; sulfamethoxazole-trimethoprim; trimethoprim; ventolin [albuterol sulfate]; zyban [bupropion]; cephalexin monohydrate; fluticasone; and iodinated diagnostic agents. SOCIAL HISTORY: He reports that he has quit smoking. He smoked 0.00 packs per day. He has never used smokeless tobacco. He reports that he does not drink alcohol or use drugs. FAMILY HISTORY: family history includes Cancer in his maternal aunt, maternal grandmother, and other; Heart in his maternal grandmother; High Cholesterol in his father; Hypertension in his father and mother. ROS: Nursing Notes: Sherry Gao LPN 09/10/2019 10:12 AM Signed PATIENT: Be Segovia DATE OF SERVICE: 09/10/2019 Right MF trigger finger Body mass index is 41.75 kg/m. This patient's BMI has been calculated and is above average, and no BMI management plan is appropriate. AUTHOR: Sherry Gao LPN 09/10/2019 10:11 Sherry Gao LPN 09/10/2019 10:11 I reviewed the above and have made changes as appropriate. Physical Exam: Vitals: Ht 5' 10" (1.778 m) Wt 291 lb (132 kg) BMI 41.75 kg/m2 Gen: NAD, A&Ox3 SKIN/PALPATION: Normal rugal patterns, sweat, turgor, and temperature. Cuticles , nails, nail curvature, and pulp bulk are essentially normal in appearance. No skin changes. SWELLING: none WARMTH: no warmth DEFORMITY: no gross deformity or malalignment NEUROLOGICAL EXAM: Sensation intact to light touch. VASCULAR EXAM: Capillary refill is <2 seconds. There is a palpable tender knot is noted at the A1 fabian location of the middle finger right side.Triggering can be elicited with flexion and extension Imaging & Tests: X-rays of the hand showed no fractures or dislocations Assessment: ICD-9-CM ICD-10-CM 1. Trigger middle finger of right hand 727.03 M65.331 Right hand middle finger triggering. Surgery was decided upon. Risks of surgery were explained to the patient to include but not be limited to infection damage to neighboring structures such as nerves vessels tendons and the possibility of continued symptoms postop. The patient understands risks ofsurgery and wished to go ahead Plan & Discussion: --Right middle finger trigger release under local I will see the patient back 2 weeks postopfor suture removal Jorge Wahl MD Hand Surgery 09/10/2019 documented in this encounter Plan of Treatment Date Type Specialty Care Team Description 09/22/2019 Office Visit Internal Medicine Shad Uriostegui MD [address] [place] [address] [phone] 09/30/2019 Office Visit Endocrinology Cheri Redmond FNP [address] [place] [address] 03/03/2020 Office Visit Pulmonary Sandro Iyer MD [address] [place] [address] [phone] 03/09/2020 Office Visit Cardiology Jeanie Whitt, AUBRIE [address] [facility] [place] [address] 04/21/2020 Office Visit Endocrinology Cheri Redmond, NATALIYA [address] [facility] [place] [address] documented as of this encounter Goals Goal Patient Goal Associated Recent Patient-Stated? Author Type Problems Progress Blood Pressure Blood Pressure 118/84 No Earl, < 140/90 (09/03/2019 NATALIYA Hurst 3:08 PM EST) Note: This is an individualized treatment (blood pressure) goal for Besteven Segovia: Displayed above (on the left) is your goal for blood pressure control. Your most recent blood pressure is also shown above, on the right. You should try to achieve blood pressures that are lower than your goal listed above (on the left). Work with your Community Fundraiser General Love Solis PA-C Note: This is an individualized treatment (frequent ED use) goal for Besteven Segovia: Please work with your Community Fundraiser, who will assist you in meeting your goals of care. Weight loss vs. 18 mo Lifestyle 7 (09/10/2019 10:10 AM No Natali Elliott FNP max (lbs) >= 10 EST) Note: This is an individualized lifestyle goal for Besteven Segovia: Your body mass index (BMI) is [...] (acquired) documented in this encounter (Home) [address] [facility] [place], [place] (Work) [address] documented as of this encounter
[2019-10-09 20:01] VITALS: BP 126/84
--- NOTE | 2019-10-09 20:16 | UC ---
Respiratory Complaint HPI - HPI Summary HPI Summary: 38-year-old male with history of asthma presents with complaints of persistent cough, chest congestion, mild shortness of breath, and wheezing for the past week. He was seen at [facility] on 10/05/2019 and diagnosed with acute bronchitis with asthma exacerbation and started on prednisone 40 mg daily 5 days. Patient states that his symptoms are not improving and he is having to use his rescue inhaler every couple of hours. Last used 2 hours ago. Denies fever, chills, nasal congestion, sore throat, chest pain, palpitations, diaphoresis, abdominal pain, nausea, vomiting, or diarrhea. - History of Current Complaint Chief Complaint: UCRespiratory Stated Complaint: CHEST CONGESTION Time Seen by Provider: 10/09/19 20:11 Hx Obtained From: Patient Pain Intensity: 3 - Allergies/Home Medications Allergies/Adverse Reactions: Allergies Allergy/AdvReac Type Severity Reaction Status Date / Time albuterol [From Ventolin HFA] Allergy Difficulty Verified 10/09/19 20:01 Breathing bupropion Allergy Difficulty Verified 10/09/19 20:01 Breathing cephalexin Allergy Rash Verified 10/09/19 20:01 citalopram [From Celexa] Allergy See Comment Verified 10/09/19 20:01 codeine Allergy Difficulty Verified 10/09/19 20:01 Breathing doxycycline Allergy Rash Verified 10/09/19 20:01 escitalopram [From Lexapro] Allergy See Comment Verified 10/09/19 20:01 famotidine Allergy Rash Verified 10/09/19 20:01 fluticasone Allergy Difficulty Verified 10/09/19 20:01 [From Advair Diskus] Breathing Iodinated Contrast Media Allergy Itching Verified 10/09/19 20:01 [Iodinated Contrast- Oral and IV Dye] moxifloxacin Allergy Hives Verified 10/09/19 20:01 nitrofurantoin Allergy Shortness Verified 10/09/19 20:01 of Breath omeprazole [From Prilosec] Allergy Rash Verified 10/09/19 20:01 Penicillins Allergy Rash Verified 10/09/19 20:01 Quinolones Allergy Rash Verified 10/09/19 20:01 salmeterol Allergy Difficulty Verified 10/09/19 20:01 [From Advair Diskus] Breathing sertraline [From Zoloft] Allergy Hallucinati Verified 10/09/19 20:01 ons sulfamethoxazole Allergy Rash Verified 10/09/19 20:01 [From Bactrim] trimethoprim [From Bactrim] Allergy Rash Verified 10/09/19 20:01 Home Medications: Home Medications Asthmanex Inhaler* 10/09/19 [History] Proair Inhaler* 10/09/19 [History] predniSONE TAB* [Deltasone 10 MG TAB*] 40 mg PO DAILY 10/09/19 [History Confirmed 10/09/19] PMH/Surg Hx/FS Hx/Imm Hx Endocrine History: Thyroid Disease Cardiovascular History: Hypertension Respiratory History: Asthma Psychological History: Anxiety Other History Of: Negative For: HIV, Hepatitis B, Hepatitis C, Anticoagulant Therapy - Surgical History Surgical History: Yes Surgery Procedure, Year, and Place: RIGHT ELBOW RECONSTRUCTION SURGERY 1983,. SLEEP APNEA SURGERY 2010 - Tonsilectomy, uvula, stretching throat. CHOLECYSTECTOMY - 09/10/16, deviated septum. carpal tunnel 2017. cicumcision with biopsy. Nasal septum surgery 03/20/2019. rt shoulder surgery-bone spurs removed and bursitis 04/10/19. right middle finger trigger finger release - Family History Known Family History: Positive: Cardiac Disease - two uncles in their 40s, no primary relatives, Hypertension, Diabetes, Other - TIA on paternal side, cancer on both sides, blood clots, asthma Family History: FHx of seasonal allergies - both parents. TIA on paternal side, cancer on both sides, blood clots - Social History Occupation: Employed Full-time Lives: Alone Alcohol Use: None Substance Use Type: None Substance Use Comment - Amount & Last Used: benzo's in the past Smoking Status (MU): Former Smoker Type: Cigarettes Amount Used/How Often: 1/2 ppd Length of Time of Smoking/Using Tobacco: 15 yrs Have You Smoked in the Last Year: No When Did the Patient Quit Smoking/Using Tobacco: 2016 Household Exposure Type: Cigarettes - Immunization History Most Recent Influenza Vaccination: fall 2015 Most Recent Tetanus Shot: utd Most Recent Pneumonia Vaccination: fall 2015 Review of Systems All Other Systems Reviewed And Are Negative: Yes Constitutional: Positive: Chills. Negative: Fever Eyes: Negative: Drainage, Eye Redness ENT: Negative: Sore Throat, Ear Ache, Nasal Discharge, Sinus Congestion, Sinus Pain/Tenderness Respiratory: Positive: Shortness Of Breath, Cough, Other - Wheezing Cardiovascular: Negative: Chest Pain Gastrointestinal: Negative: Abdominal Pain, Vomiting, Diarrhea, Nausea Genitourinary: Positive: Negative Musculoskeletal: Positive: Negative Neurological: Positive: Negative Is Patient Immunocompromised?: No Physical Exam - Summary Physical Exam Summary: GENERAL APPEARANCE: Well developed, well nourished, alert and cooperative, and appears to be in no acute distress. EYES: Conjunctiva clear. No drainage. EARS: External auditory canals and tympanic membranes clear, hearing grossly intact. NOSE: No nasal discharge. THROAT: Pharynx normal. No tonsilar inflammation, swelling, exudate, or lesions. Uvula midline. NECK: Neck supple, non-tender without lymphadenopathy. CARDIAC: Normal S1 and S2. No S3, S4 or murmurs. Rhythm is regular. There is no peripheral edema, cyanosis or pallor. Extremities are warm and well perfused. Capillary refill is less than 2 seconds. Peripheral pulses intact. LUNGS: Clear to auscultation without rales, rhonchi, wheezing or diminished breath sounds. Dry, nonproductive cough. ABDOMEN: Positive bowel sounds. Soft, nondistended, nontender. No guarding or rebound. No masses or hepatosplenomegally. MUSKULOSKELETAL: ROM intact to all extremities. No joint erythema or tenderness. Normal muscular development. Normal gait. SKIN: Skin normal color, texture and turgor with no lesions or eruptions. Triage Information Reviewed: Yes Vital Signs: Initial Vital Signs Temp 97.1 F 10/09/19 19:57 Pulse 89 10/09/19 19:57 Resp 18 10/09/19 19:57 BP 126/84 10/09/19 19:57 Pulse Ox 98 10/09/19 19:57 Vital Signs Reviewed: Yes Respiratory Course/Dx - Course Course Of Treatment: 38-year-old male with history of asthma presents with complaints of persistent cough, chest congestion, mild shortness of breath, and wheezing for the past week. He was seen at [facility] on 10/05/2019 and diagnosed with acute bronchitis with asthma exacerbation and started on prednisone 40 mg daily 5 days. Patient states that his symptoms are not improving and he is having to use his rescue inhaler every couple of hours. Last used 2 hours ago. Denies fever, chills, nasal congestion, sore throat, chest pain, palpitations, diaphoresis, abdominal pain, nausea, vomiting, or diarrhea. Afebrile. Vital signs stable. On exam patient was in no acute distress, clear bilateral breath sounds, a dry nonproductive cough, and otherwise unremarkable exam. The patient denied discussed at length that acute bronchitis is typically viral origin and that his asthma seems to be well controlled at this time however patient insists that he needs antibiotic and additional steroids at this time as he feels without these he we'll continue to worsen. Offered to treat with a course of azithromycin however the patient states he is concerned that he has taken this antibiotic to many times and is requesting treatment with a course of clindamycin at this time. Discussed with the patient the high incidence of GI adverse effect with the clindamycin however patient states he would still prefer to use. We'll place him on clindamycin 300 mg 3 times a day 7 days. We 'll provide him with a prednisone taper to start once he has completed his current course of prednisone. He is to continue using his rescue inhaler as needed. Encouraged to follow up with his primary care provider in 3 days especially if his symptoms are not improving for further evaluation and treatment. Anticipatory guidance and warning symptoms were reviewed with the patient. Verbalizes understanding and agrees with plan of care. - Differential Dx/Diagnosis Differential Diagnosis/HQI/PQRI: Asthma, Bronchitis, Lower Resp Infection, Other - URI Provider Diagnosis: Acute bronchitis Discharge ED - Sign-Out/Discharge Documenting (check all that apply): Patient Departure All imaging exams completed and their final reports reviewed: No Studies - Discharge Plan Condition: Stable Disposition: HOME Prescriptions: Benzonatate CAP* [Tessalon 100 MG CAP*] 100 mg PO TID PRN #21 cap PRN Reason: Cough Clindamycin HCl 300 mg PO TID 7 Days #21 capsule predniSONE TAB* [Deltasone 10 MG TAB*] 10 mg PO DAILY #18 tab Patient Education Materials: Acute Bronchitis (ED) Referrals: Shad Uriostegui MD [Primary Care Provider] - 3 Days Additional Instructions: Your history and exam are consistent with acute bronchitis which is most often caused by a viral infection however because there has been no improvement in your symptoms you have elected to treat with an antibiotic at this time. Start clindamycin 300 mg three times a day for 7 days. We will provide you with a tapering dose of prednisone to start once you have completed your current course. Take prednisone 30 mg (3 tabs) for 3 days then 20 mg (2 tabs) for 3 days, then 10 mg (1 tab) for 3 days, then stop. Continue to use her albuterol inhaler as needed. Get plenty of rest. Drink plenty of fluids. Run a cool mist humidifer in your room at night. Take over the counter acetaminophen (Tylenol) or ibuprofen (Advil, Motrin) according to directions as needed for pain or fever. Take Tessalon Perles 1 cap every 8 hours as needed for cough. Follow up with your primary care provider in 3 days especially if symptoms do not improve. Seek immediate medical attention in the emergency room if you have fever greater than 100.5 F despite taking acetaminophen or ibuprofen, have chest pain , difficulty breathing, or have any worsening of symptoms. - Billing Disposition and Condition Condition: STABLE Disposition: Home
== END 2019-10-09 20:48 | disposition home or self-care (01) ==
LOC: UCEAST 19:52
DX: J20.9 Acute bronchitis, unspecified (principal); I10 Essential (primary) hypertension; J45.909 Unspecified asthma, uncomplicated; Z88.2 Allergy status to sulfonamides; Z88.8 Allergy status to other drugs, medicaments and biological substances; Z88.0 Allergy status to penicillin; Z87.891 Personal history of nicotine dependence; Z88.1 Allergy status to other antibiotic agents; Z91.041 Radiographic dye allergy status; Z88.5 Allergy status to narcotic agent; Z79.52 Long term (current) use of systemic steroids
CPT/HCPCS: 99212; G0463

== ENCOUNTER 2019-12-07 01:22 | Emergency (ER) | payer OTHER ==
[2019-12-07 01:33] VITALS: BP 131/94
--- OUTSIDE RECORDS SUMMARY | 2019-12-07 01:35 | XMS REPORT ---
:1980 Author Organization [facility] Care Team Providers Name Role Phone ROSEANNE BARCENAS Primary Care Physician Unavailable Allergies, Adverse Reactions, Alerts Allergy Code CodeSystem Reaction Severity Criticality Status Start Substance Date Moderate Medications Medication Medication Medication Start Stop Route Dose Status Fill Code CodeSystem Date Date Instructions clonazepam 19741205 RxNorm 2018-12 oral 1 mg completed for 8- tablet day(s) clonazepam 19741205 RxNorm 2019-07 oral 1 mg completed for 1-03 tablet day(s) clonazepam 19741205 RxNorm 2019-05 oral 1 mg completed for 0-03 tablet day(s) Problems Problem Name Code CodeSystem Alternate Alternate Start End Status Narrative Code CodeSystem Date Date Dysthymia 23280251 SNOMED-CT 2019- Active 4-03 Generalized [id number] SNOMED-CT 2019-0 Active anxiety 3-22 disorder Generalized [id number] SNOMED-CT 2019-0 Active anxiety 3-22 disorder Generalized [id number] SNOMED-CT 2019-0 Active anxiety 3-22 disorder Relevant diagnostic tests/laboratory data Narrative No Information Procedures Procedure Code CodeSystem Target Date of Status Service Device Device Device Name Site Procedure Delivery Code Name UID Location Psychotherap [id number] SNOMED-CT () 2019-07-22 complete Mental y, 45 04 d Health- minutes with [address], [id number] Psychotherap [id number] SNOMED-CT () 2019-08-07 complete Mental y, 45 04 d Health- minutes with [address], [id number] Psychotherap [id number] SNOMED-CT () 2019-08-20 complete Mental y, 45 04 d Health- minutes with [address], [id number] Psychotherap [id number] SNOMED-CT () 2019-08-31 complete Mental y, 45 04 d Health- minutes with [address], [id number] Psychotherap [id number] SNOMED-CT () 2019-09-18 complete Mental y, 45 04 d Health- minutes with [address], [id number] [id number] Psychotherap [id number] SNOMED-CT () 2019-10-07 complete Mental y, 45 04 d Health- minutes with [address], [id number] [id number] Psychotherap [id number] SNOMED-CT () 2019-10-22 complete Mental y, 45 04 d Health- minutes with [address], [id number] Psychotherap [id number] SNOMED-CT () 2019-02-02 complete Mental y, 45 04 d Health- minutes with [address], [id number] Psychotherap [id number] SNOMED-CT () 2019-04-28 complete Mental y, 45 04 d Health- minutes with [address], [id number] [id number] Psychotherap [id number] SNOMED-CT () 2019-05-11 complete Mental y, 45 04 d Health- minutes with [address], [id number] Psychotherap 244381 SNOMED-CT () 2019-05-20 complete Mental y, 45 04 d Health- minutes with [address], [id number] [id number] Psychotherap [id number] SNOMED-CT () 2019-03-16 complete Mental y, 45 04 d Health- minutes with [address], [id number] Psychotherap [id number] SNOMED-CT () 2019-03-30 complete Mental y, 45 04 d Health- minutes with [address] [place], [id number] [phone] Psychotherap 918373 SNOMED-CT () 2019-11-06 complete Mental y, 45 04 d Health- minutes with [place] patient [address], [id number] [id number] Office or [id number] SNOMED-CT () 2019-06-30 complete Mental other 7 d Health- outpatient Can visit for [address], established [phone] patient, [id number] which requires at least 2 of these 3 munson components: An expanded problem focused history; An expanded problem focused examination; Medical decision making of low Office or [id number] SNOMED-CT () 2019-08-04 complete Mental other 6 d Health- outpatient Can visit for [address], established [phone] patient, [id number] which requires at least 2 of these 3 munson components: A problem focused history; A problem focused examination; Straightforw deandra medical decision making. Counselin Office or [id number] SNOMED-CT () 2019-10-07 complete Mental other 6 d Health- outpatient [place] visit for [address], established [phone] patient, [id number] which requires at least 2 of these 3 munson components: A problem focused history; A problem focused examination; Straightforw deandra medical decision making. Counselin Office or [id number] SNOMED-CT () 2019-03-31 complete Mental other 6 d Health- outpatient [place] visit for [address], established [id number] patient, [id number] which requires at least 2 of these 3 munson components: A problem focused history; A problem focused examination; Straightforw deandra medical decision making. Counselin SNOMED-CT () 2019-03-02 complete Mental d Health- Can [address], [id number] [phone] SNOMED-CT () 2019-04-17 complete Mental d Health- [place] [address], [phone] SNOMED-CT () 2019-05-[address], [id number] [phone] Encounters/Encounter Diagnoses Encounter Encounter Diagnosis Diagnosis Name Diagnosis Date of Service Name Code Code CodeSystem Diagnosis Delivery Location [id number] Generalized SNOMED-CT Behavioral anxiety Health disorder Clinic , , , Vital Signs No Information Social History Element Description Description Start End Code CodeSystem AdditionalInfo Date Date SexAssignedAtBirth Male 1981-0 M AdministrativeGender 2-16 Hospital Discharge Instructions Reason For Referral Medical Equipment FDA Assessments
--- OUTSIDE RECORDS SUMMARY | 2019-12-07 01:35 | XMS REPORT | Summary of Care ---
:1980 Author Organization [facility] Address [address] [address] Care Team Providers Name Role Phone Shad Uriostegui Primary Care Provider Reason for Visit Reason Comments Hand Pain Refer to Department Only (Routine) Status Reason Specialty Diagnoses / Referred By Referred To Procedures Contact Contact Pending Review Physical Diagnoses Trigger finger, unspecified finger, unspecified laterality [facility] MD [facility] - [address] [place] [address] Physical Therapy [place] [address] [place] [address] [address] [address] [place], [place] Phone: [phone] Phone: Encounter Details Date Type Department Care Team Description 11/27/2019 Office Visit [facility] - Jodie Mari, LEAH Trigger finger, [place] [facility] [address] [place] [address] Dr unspecified finger, Therapy [address] unspecified [address] [place] [address] laterality (Primary [address] [phone] Dx) [place] [address] [phone] Allergies Active Allergy Reactions Severity Noted Date [...] Rash 08/30/2016 Pepcid Complete Rash 08/30/2016 Prednisone SENIOR QUALITY MANAGER Reaction 08/23/2016 Prilosec Otc Rash 08/30/2016 Quinolones Rash 08/30/2016 Sertraline SENIOR QUALITY MANAGER Reaction, Other High 08/23/2016 Sulfamethoxazole-Trimetho Other 03/23/2019 prim Trimethoprim Rash 01/30/2018 Albuterol Sulfate Other 12/07/2016 Not effective Zantac Rash Medium 11/26/2017 Bupropion Respiratory Reaction 08/30/2016 Hives documented as of this encounter (statuses as of 11/27/2019) Medications Medication Sig Dispensed Refills Start Date [...] Oral Tab MOUTH EVERY DAY fluticasone (FLONASE) [place] 2 Sprays 1 Bottle 5 07/24/2019 07/23/2020 Active 50 MCG/ACT Nasal in nose DAILY. 2 Suspension sprays each nostril daily atorvastatin Take 1 Tab by 90 Tab 1 08/17/2019 Active (LIPITOR) 40 MG Oral mouth DAILY. TabIndications: Mixed hyperlipidemia levothyroxine Take 1 Tab by 30 Tab 4 08/20/2019 Active (SYNTHROID) 150 MCG mouth BEFORE Oral Tab BREAKFAST. mometasone furoate Take 2 Puffs by 1 Inhaler 5 09/03/2019 Active (ASMANEX HFA) 200 inhalation MCG/ACT Inhalation DAILY. Aerosol meclizine (ANTIVERT) TAKE 1 TABLET BY 60 Tab 1 09/28/2019 Active 25 MG Oral Tab MOUTH TWICE A DAY NEEDED FOR DIZZINESS/VERTIG O metoprolol TAKE 1 TAB BY 60 Tab 1 10/30/2019 Active (LOPRESSOR) 25 MG MOUTH THREE Oral Tab TIMES DAILY NEEDED (HEART PALPITAITONS). albuterol HFA TAKE 2 PUFFS BY 8.5 Inhaler 3 11/03/2019 Active (VENTOLIN) 108 (90 MOUTH EVERY 4 Base) MCG/ACT HOURS NEEDED Inhalation Aero FOR WHEEZE SolnIndications: Mild intermittent asthma with acute exacerbation azithromycin Take 2 pills on 6 Tab 0 11/11/2019 Active (ZITHROMAX Z-SHANT) 250 the first day MG Oral Tab and 1 pill each day for 4 days methylPREDNISolone, Take as directed 21 Tab 0 11/19/2019 Active dose-shant, (MEDROL) 4 MG Oral Tablet Therapy Pack documented as of this encounter (statuses as of 11/27/2019) Active Problems Problem Noted Date S/P trigger finger release 10/06/2019 Trigger finger, right middle finger 09/10/2019 Overview: Added automatically from request for surgery [id number] Essential hypertension 05/07/2019 Seasonal allergies 05/07/2019 S/P [...] 08/15/2016 Generalized anxiety disorder 08/15/2016 Overview: Therapist [facility] Mild intermittent asthma without complication 08/15/2016 Overview: [facility] 2011 JASWINDER on CPAP Overview: [facility]- CPAP. AHI 35 on 9/26/17 NPSG through [facility] documented as of this encounter (statuses as of 11/27/2019) Resolved Problems Problem Noted Date Resolved Date Problem 03/03/2019 05/07/2019 Right wrist pain 12/09/2017 05/07/2019 Calculus of gallbladder without cholecystitis without 09/10/2016 10/04/2016 obstruction Gallbladder polyp 08/15/2016 10/04/2016 documented as of this encounter (statuses as of 11/27/2019) Immunizations Name Administration Dates Next Due Influenza [...] on filedocumented in this encounter Progress Notes Jodie Mari, PT - 11/27/2019 11:00 AM EST [facility] Initial Evaluation Outpatient Physical [facility] [address] [place] [phone] Patient: Be Segovia : 1980 Date of Service: 11/27/2019 Referring Physician: Jorge Wahl Primary Diagnosis: ICD-9-CM ICD-10-CM 1. Trigger finger, unspecified finger, unspecified laterality 727.03 M65.30 Time In: 1100 Time Out: 1140 Subjective: He is a 38-y.o.-year-old male who presents for outpatient physical therapy with a chiefcomplaint of middle finger snapping post right middle trigger finger release on 09/29/19. Slight painat the knuckle if does repetitive gripping. Would like to know what he can do for it at home. Prior Functional Status: pain and triggering with gripping and extending the 3rd digit Current Functional Status: some pain with repetitive gripping, clicking noted during gripping Abuse/Neglect Screening Are you being threatened or hurt by anyone? : No FOTO Data FOTO Intake Completed: Yes Intake FS Score: 72 Predicted FS Score: 73 Objective: Past Medical History: Diagnosis Date Anxiety Asthma Cardiac dysrhythmia Disorder of thyroid Dizziness GERD (gastroesophageal reflux disease) Headache disorder High cholesterol Hypertension Hypothyroidism JASWINDER on CPAP pt uses a bipap Osteoarthritis Otitis media Sinusitis, chronic Past Surgical History: Procedure Laterality Date ARTHROSCOPY, SHOULDER ACROMIOPLASTY, DISTAL CLAVICLE Right 04/10/2019 Procedure: RIGHT SHOULDER ARTHROSCOPIC SUBACROMIAL DECOMPRESSION ; Surgeon: Percy Funes MD; Location: [facility] MAIN OR CARPAL TUNNEL RELEASE Right CIRCUMCISION EGD N/A 11/26/2017 Procedure: EGD with biopsies; Surgeon: Brianda Fairbanks MD; Location: [facility] MAIN OR ELBOW ARTHROPLASTY NEC Right LAPAROSCOPIC CHOLECYSTECTOMY N/A 09/10/2016 Procedure: LAPAROSCOPIC CHOLECYSTECTOMY; Surgeon: Mars Nicholas MD; Location: [facility] MAIN OR NASAL SINUS OPERATIONS WI RECONSTR NOSE+JIMENEZ SEPTAL REPAIR N/A 03/20/2019 Procedure: SEPTORHINOPLASTY, REDUCTION OF INFERIOR TURBINATES; Surgeon: Zechariah Suggs Jr., MD; Location: [facility] MAIN OR WI REMOVAL GALLBLADDER 2015 WI REMOVE TONSILS/ADENOIDS,12+ Y/O tonsillectomy WI REVISE MEDIAN N/CARPAL TUNNEL SURG Right 01/15/2018 Procedure: RELEASE CARPAL TUNNEL/RIGHT CARPAL TUNNEL RELEASE; Surgeon: Abelardo Alvarado MD; Location: [facility] MAIN OR TONSILLECTOMY Current Outpatient Medications: albuterol HFA (VENTOLIN) 108 (90 Base) MCG/ACT Inhalation Aero Soln, TAKE 2 PUFFS BY MOUTH EVERY 4 HOURS NEEDED FOR WHEEZE, Disp: 8.5 Inhaler, Rfl : 3 atorvastatin (LIPITOR) 40 MG Oral Tab, Take 1 Tab by mouth DAILY., Disp : 90 Tab, Rfl: 1 azithromycin (ZITHROMAX Z-SHANT) 250 MG Oral Tab, Take 2 pills on the first day and 1 pill each day for 4 days, Disp: 6 Tab, Rfl: 0 cetirizine (ZYRTEC) 10 MG Oral Tab, Take 1 Tab by mouth DAILY., Disp: 30 Tab, Rfl: 5 clonazePAM (KLONOPIN) 1 MG Oral Tab, Take 3 mg by mouth EVERY BEDTIME., Disp: , Rfl: fluticasone (FLONASE) 50 MCG/ACT Nasal Suspension, [place] 2 Sprays in nose DAILY. 2 sprays each nostril daily, Disp: 1 Bottle, Rfl: 5 levothyroxine (SYNTHROID) 150 MCG Oral Tab, Take 1 Tab by mouth BEFORE BREAKFAST., Disp: 30 Tab, Rfl: 4 Losartan Potassium 100 MG Oral Tab, TAKE 1 TABLET BY MOUTH EVERY DAY, Disp: 30 Tab, Rfl: 5 meclizine (ANTIVERT) 25 MG Oral Tab, TAKE 1 TABLET BY MOUTH TWICE A DAY NEEDED FOR DIZZINESS/VERTIGO, Disp: 60 Tab, Rfl: 1 methylPREDNISolone, dose-shant, (MEDROL) 4 MG Oral Tablet Therapy Pack, Take as directed, Disp: 21 Tab, Rfl: 0 metoprolol (LOPRESSOR) 25 MG Oral Tab, TAKE 1 TAB BY MOUTH THREE TIMES DAILY NEEDED (HEART PALPITAITONS)., Disp: 60 Tab, Rfl: 1 mometasone furoate (ASMANEX HFA) 200 MCG/ACT Inhalation Aerosol, Take 2 Puffs by inhalation DAILY., Disp: 1 Inhaler, Rfl: 5 Spacer/Aero Chamber Mouthpiece Does not apply Misc, 1 Act by Does not apply route NEEDED (use with inhalor, wheezing)., Disp: 1 Device, Rfl: 0 Allergies Allergen Reactions Sertraline SENIOR QUALITY MANAGER Reaction and Other Zantac Rash Advair Diskus [...] Rash Penicillins Rash Pepcid Complete Rash Prednisone SENIOR QUALITY MANAGER Reaction Prilosec Otc Rash Quinolones Rash Sulfamethoxazole-Trimethoprim Other Trimethoprim Rash Ventolin [Albuterol Sulfate] Other Not effective Zyban [Bupropion] Respiratory Reaction Hives Cephalexin Monohydrate Rash Fluticasone Other Headaches, breathing problems Iodinated Diagnostic Agents Dermatologic Reaction Wound is healed There is no at right triggering. Wrist and finger ROM WNL but wrist extension increases pain at wrist- tautness noted There is no catching of the tendon palpable but audible clicking noted with flexion and extension of the 3rd MP joint. Decreased after scar massage and stretching Right casing cooker strength: 40#, Left: 70# Plan of Care Plan of Care Start Date: 11/27/19 Plan of Care Expiration Date: 02/25/20 Prior Function Comment: pain and triggering with gripping and extending the 3rd digit Current Function Comment: some pain with repetitive gripping, clicking noted during gripping Rehabilitative Prognosis: Good Planned Intervention(s): PT Eval Low Complexity (57975);Therapeutic Exercise ( Timed) (05591);Ultrasound (Timed) (75600);Manual Therapy (Timed) (92296);Moist Hot Pack (36804);Cold Pack (32276) Frequency of Treatments: 1 time weekly Duration of Treatments: 3 months History Components: Moderate (1-2 personal factors and/or comorbidities) Examination of Body Systems/Components: Low (Addressing 1-2 elements) Clinical Presentation: Stable - unchanging or predictable (Low) Clinical Decision Making (complexity): Low Treatment Number: 1 Total Time of Evaluation: 15 Outcome Tools Used: FOTO Assessment: Patient presents s/p 3rd digit trigger release with noted clicking in the finger duringflexion and extension. Displays decreased wrist and finger extensor length with palpable scar tissueand decreased casing cooker strength. Would benefit from therapy to decrease scar tissue, improve tissue length and strength to tolerate all ADL's. Was Physical Therapy treatment performed at this visit? Yes: Interventions: FOTO Data FOTO Intake Completed: Yes Intake FS Score: 72 Predicted FS Score: 73 Therapeutic Exercises (39600) Patient Education/Home Exercise Program: HEP given and performed Number of Exercises?: 3 Total Minutes (all Therapeutic Exercise): 10 Exercise #1 Exercise Name: Wrist extension/flexion stretch Reason for Exercise: Flexibility Location/Body Area: Wrist;Hand Sets/Reps: 3x30 seconds Exercise #2 Exercise Name: finger extension stretch Reason for Exercise: Flexibility Location/Body Area: Hand Sets/Reps: 3x30 seconds Exercise #3 Exercise Name: rubberband extension Reason for Exercise: Strengthening Location/Body Area: Hand Sets/Reps: 10 Manual Therapy (28911) Soft Tissue Mobilization: Scar Mobilization Soft Tissue Mobilization Details: scar massage and STM to flexor tendons Total Minutes (All Manual Therapy): 10 Modalities Modalities Needed?: Ultrasound Ultrasound (83177) Reason for Use: soft tissue extensibility Body Area: bautista Frequency: 1.0 MHz Frequency Description: Continuous Intensity: 1 Total Minutes: 5 minutes Plan for Next Visit: Continue per POC. US and scar massage. Evaluation Complexity Assessment: History Components: Moderate (1-2 personal factors and/or comorbidities) Examination of Body Systems/Components: Low (Addressing 1-2 elements) Clinical Presentation: Stable - unchanging or predictable (Low) Clinical Decision Making (complexity): Low Treatment Number: 1 Total Time of Evaluation: 15 Total Number of Timed Code Treatment Minutes: 25 Author: Jodie Mari, PT 11/27/2019 11:36 documented in this encounter Plan of Treatment Date Type Specialty Care Team Description 12/11/2019 Office Visit Physical Therapy Jodie Mari, PT [address] [place], [place] [id number] 12/31/2019 Office Visit Orthopedics Jorge Wahl MD [address] [facility] [address] [place] [address] [phone] 01/14/2020 Office Visit Pulmonary Sandro Iyer MD [address] [place] [address] [phone] 03/03/2020 Office Visit Pulmonary Sandro Iyer MD [address] [place] [address] [phone] 03/09/2020 Office Visit Cardiology Jeanie Whitt CRNP [address] [address] [phone] 04/21/2020 Office Visit Endocrinology Cheri Redmond, NATALIYA [address] [place] [address] Health Maintenance Due Date Last Done Comments HEPATITIS A IMMUNIZATION SERIES Aged Out No longer eligible based on patient's age to complete this topic documented as of this encounter Goals Goal Patient Goal Associated Recent Patient-Stated? Author Type Problems Progress Blood Pressure Blood Pressure 128/78 No Earl, < 140/90 (11/10/2019 NATALIYA Hurst 1:08 PM EST) Note: This is an individualized treatment (blood pressure) goal for Be Segovia: Displayed above (on the left) is your goal for blood pressure control. Your most recent blood pressure is also shown above, on the right. You should try to achieve blood pressures that are lower than your goal listed above (on the left). Work with your Freelance Graphic Designer General No Love Matias PA-C Note: This is an individualized treatment (frequent ED use) goal for Besteven Segovia: Please work with your Freelance Graphic Designer, who will assist you in meeting your goals of care. Weight loss vs. 18 mo Lifestyle 6 (11/19/2019 9:32 AM No Natlai Elliott FNP max (lbs) >= 10 EST) [...] this encounter Visit Diagnoses Diagnosis Trigger finger, unspecified finger, unspecified laterality documented in this encounter (Work) [address] [place] [address] documented as of this encounter
--- OUTSIDE RECORDS SUMMARY | 2019-12-07 01:35 | XMS REPORT | Summary of Care ---
:1980 Author Organization [facility] Address [address] [place] [address] Care Team Providers Name Role Phone Shad Uriostegui Primary Care Provider Reason for Visit Reason Comments Congestion c/o congestion x 2 months on / off. Encounter Details Date Type Department Care Team Description 11/10/2019 Office Visit [facility] maxillary Practice MD Luz sinusitis (Primary Dx) [address] [place] [address] [place] [address] [phone] Allergies Active Allergy Reactions Severity Noted Date [...] Rash 08/30/2016 Pepcid Complete Rash 08/30/2016 Prednisone DRIER AND GRINDER TENDER Reaction 08/23/2016 Prilosec Otc Rash 08/30/2016 Quinolones Rash 08/30/2016 Sertraline DRIER AND GRINDER TENDER Reaction, Other High 08/23/2016 Sulfamethoxazole-Trimetho Other 03/23/2019 prim Trimethoprim Rash 01/30/2018 Albuterol Sulfate Other 12/07/2016 Not effective Zantac Rash Medium 11/26/2017 Bupropion Respiratory Reaction 08/30/2016 Hives documented as of this encounter (statuses as of 11/10/2019) Medications Medication Sig Dispensed Refills Start End [...] Oral Tab BY MOUTH 19 EVERY DAY fluticasone (FLONASE) [place] 2 1 Bottle 5 07/24/20 Active 50 MCG/ACT Nasal Sprays in 19 020 Suspension nose DAILY. 2 sprays each nostril daily atorvastatin (LIPITOR) Take 1 Tab by 90 Tab 1 08/17/20 Active 40 MG Oral mouth DAILY. 19 TabIndications: Mixed hyperlipidemia levothyroxine Take 1 Tab by 30 Tab 4 08/20/20 Active (SYNTHROID) 150 MCG mouth BEFORE 19 Oral Tab BREAKFAST. mometasone furoate Take 2 Puffs 1 Inhaler 5 09/03/20 Active (ASMANEX HFA) 200 by inhalation 19 MCG/ACT Inhalation DAILY. Aerosol meclizine (ANTIVERT) TAKE 1 TABLET 60 Tab 1 09/28/20 Active 25 MG Oral Tab BY MOUTH 19 TWICE A DAY NEEDED FOR DIZZINESS/CARLOS TIGO metoprolol (LOPRESSOR) TAKE 1 TAB BY 60 Tab 1 10/30/19 Active 25 MG Oral Tab MOUTH THREE 20 TIMES DAILY NEEDED (HEART PALPITAITONS) . albuterol HFA TAKE 2 PUFFS 8.5 Inhaler 3 11/03/19 Active (VENTOLIN) 108 (90 BY MOUTH 20 Base) MCG/ACT EVERY 4 HOURS Inhalation Aero NEEDED FOR SolnIndications: Mild WHEEZE intermittent asthma with acute exacerbation methylPREDNISolone Take by 0 Discontinued (MEDROL PO) mouth DAILY. 020 (Therapy Completed) predniSONE 5 MG (21) Take by 0 Discontinued Oral Tablet Therapy mouth. 020 (Therapy Pack Completed) Hospital, Clinic, or Ordered Dose Route Frequency Start Date End Date Status Other Facility Administered Medication ibuprofen (MOTRIN) 600 mg PO Q6 HRS PRN 02/06/2019 11/10/2019 Discontinued tablet 600 mg documented as of this encounter (statuses as of 11/10/2019) Active Problems Problem Noted Date S/P trigger finger release 10/06/2019 Trigger finger, right middle finger 09/10/2019 Overview: Added automatically from request for surgery [id number] Essential hypertension 05/07/2019 Seasonal allergies 05/07/2019 S/P [...] 08/15/2016 Generalized anxiety disorder 08/15/2016 Overview: Therapist [facility] Mild intermittent asthma without complication 08/15/2016 Overview: [facility] 2012 JASWINDER on CPAP Overview: [facility]- CPAP. AHI 35 on 07/23/17 NPSG through [facility] documented as of this encounter (statuses as of 11/10/2019) Resolved Problems Problem Noted Date Resolved Date Problem 03/03/2019 05/07/2019 Right wrist pain 12/09/2017 05/07/2019 Calculus of gallbladder without cholecystitis without 09/10/2016 10/04/2016 obstruction Gallbladder polyp 08/15/2016 10/04/2016 documented as of this encounter (statuses as of 11/10/2019) Immunizations Name Administration Dates Next Due Influenza [...] Sign Reading Time Taken Comments Blood Pressure 128/78 11/10/2019 1:08 PM EST Pulse 69 11/10/2019 1:08 PM EST Temperature 36.8 11/10/2019 1:08 PM EST C (98.2 F) Respiratory Rate - - Oxygen Saturation 98% 11/10/2019 1:08 PM EST Inhaled Oxygen Concentration - - Weight 132.5 kg (292 lb) 11/10/2019 1:08 PM EST Height 177.8 cm (5' 10") 11/10/2019 1:08 PM EST Body Mass Index 41.9 11/10/2019 1:08 PM EST documented in this encounter Patient Instructions Patient InstructionsLuz Rmaos MD - 11/10/2019 1:00 PM EST1. Take Z- pack as directed 2. Continue Flonase 3. Take Mucinex 600 mg 2 times a day 4. Call if no improvement or worse documented in this encounter Progress Notes Luz Ramos MD - 11/10/2019 1:00 PM EST PATIENT: Be Segovia : 1980 DATE OF SERVICE: 11/10/2019 Subjective SUBJECTIVE: Be Segovia is a 38-y.o. male who presents for evaluation of nasal congestion, bilateral sinus pressure, more on the L, postnasal drip and productive cough with sputum Symptoms began 2 months ago and are intermittent since that time. Past history is significant for asthma. Past Medical History: Diagnosis Date Anxiety Asthma [...] 108 (90 Base) MCG/ACT Inhalation Aero Soln TAKE 2 PUFFS BY MOUTH EVERY 4 HOURS NEEDED FOR WHEEZE atorvastatin (LIPITOR) 40 MG Oral Tab Take 1 Tab by mouth DAILY. cetirizine (ZYRTEC) 10 MG Oral Tab Take 1 Tab by mouth DAILY. clonazePAM (KLONOPIN) 1 MG Oral Tab Take 3 mg by mouth EVERY BEDTIME. fluticasone (FLONASE) 50 MCG/ACT Nasal Suspension [place] 2 Sprays in nose DAILY. 2 sprays eachnostril daily levothyroxine (SYNTHROID) 150 MCG Oral Tab Take 1 Tab by mouth BEFORE BREAKFAST. Losartan Potassium 100 MG Oral Tab TAKE 1 TABLET BY MOUTH EVERY DAY meclizine (ANTIVERT) 25 MG Oral Tab TAKE 1 TABLET BY MOUTH TWICE A DAY NEEDED FOR DIZZINESS/VERTIGO metoprolol (LOPRESSOR) 25 MG Oral Tab TAKE 1 TAB BY MOUTH THREE TIMES DAILY NEEDED (HEART PALPITAITONS). mometasone furoate (ASMANEX HFA) 200 MCG/ACT Inhalation Aerosol Take 2 Puffs by inhalation DAILY. Spacer/Aero Chamber Mouthpiece Does not apply Misc 1 Act by Does not apply route NEEDED (use with inhalor, wheezing). No current facility-administered medications for this visit. Allergies Allergen Reactions Sertraline DRIER AND GRINDER TENDER Reaction and Other Zantac Rash Advair Diskus [...] Rash Penicillins Rash Pepcid Complete Rash Prednisone DRIER AND GRINDER TENDER Reaction Prilosec Otc Rash Quinolones Rash Sulfamethoxazole-Trimethoprim [...] Financial resource strain: Not on file Food insecurity Worry: Not on file Inability: Not on file Transportation needs Medical: Not on file Non-medical: Not on file Tobacco Use Smoking status: Former Smoker Packs/day: 0.00 Smokeless tobacco: Never Used Substance and Sexual Activity Alcohol use: No Binge frequency: Never Drug use: No Sexual activity: Never Lifestyle Physical activity Days per week: Not on file Minutes per session: Not on file Stress: Not on file Relationships Social connections Talks on phone: Not on file Gets together: Not on file Attends yazidi service: Not on file Active member of club or organization: Not on file Attends meetings of clubs or organizations: Not on file Relationship status: Not on file Intimate partner violence Fear of current or ex partner: Not [...] 60 lbs Social History Narrative Lives in [place], [place] Lives alone no significant other Never No children 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 Objective OBJECTIVE: BP 128/78 | Pulse 69 | Temp 98.2 F (36.8 C) | Ht 5' 10" (1.778 m) | Wt 292 lb (132.5 kg) | SpO2 98% | BMI 41.90 kg/m GENERAL: alert, no distress. HEENT: neck has left anterior cervical nodes enlarged, pharynx erythematous without exudate, bilateral sinuses are tender, postnasal drip noted and nasal mucosa congested. LUNGS: clear to auscultation bilaterally. HEART: regular rate and rhythm, S1, S2 normal, no murmur, click, rub or gallop. ICD-9-CM ICD-10-CM 1. Chronic maxillary sinusitis 473.0 J32.0 Patient Instructions 1. Take Z-pack as directed 2. Continue Flonase 3. Take Mucinex 600 mg 2 times a day 4. Call if no improvement or worse Author: Luz Ramos MD 11/10/2019 13:22 documented in this encounter Plan of Treatment Date Type Specialty Care Team Description 01/14/2020 Office Visit Pulmonary Sandro Iyer MD [address] [place] [address] [phone] 03/03/2020 Office Visit Pulmonary Sandro Iyer MD [address] [place] [address] [phone] 03/09/2020 Office Visit Cardiology Jeanie Whitt CRNP [address] [address] 04/21/2020 Office Visit Endocrinology Cheri Redmond FNP [address] [facility] [place] [address] Health Maintenance Due Date [...] above (on the left). Work with your Boiler Room Helper General Love Solis PA-C Note: This is an individualized treatment (frequent ED use) goal for Be Segovia: Please work with your Boiler Room Helper, who will assist you in meeting your goals of care. Weight loss vs. 18 mo Lifestyle 6 (11/10/2019 1:08 PM Natali Jones FNP max (lbs) >= [...] filedocumented in this encounter Visit Diagnoses Diagnosis Chronic maxillary sinusitis documented in this encounter (Work) [address] [place] [address] documented as of this encounter
--- OUTSIDE RECORDS SUMMARY | 2019-12-07 01:35 | XMS REPORT | Summary of Care ---
:1980 Author Organization [facility] Address [address] [address] Care Team Providers Name Role Phone Shad Uriostegui Primary Care Provider Reason for Visit Reason Comments New Patient s/p right middle trigger finger release Encounter Details Date Type Department Care Team Description 10/15/2019 Office Visit [facility] Jorge Wahl MD Trigger finger, [address] [facility] [address] [place] [address] unspecified finger, [address] [place], [place] [id number] [place] [address], [place] laterality (Primary [phone] Dx) [phone] Allergies Active Allergy Reactions Severity Noted Date [...] Rash 08/30/2016 Pepcid Complete Rash 08/30/2016 Prednisone PROCESS CAMERA OPERATOR Reaction 08/23/2016 Prilosec Otc Rash 08/30/2016 Quinolones Rash 08/30/2016 Sertraline PROCESS CAMERA OPERATOR Reaction, Other High 08/23/2016 Sulfamethoxazole-Trimetho Other 03/23/2019 prim Trimethoprim Rash 01/30/2018 Albuterol Sulfate Other 12/07/2016 Not effective Zantac Rash Medium 11/26/2017 Bupropion Respiratory Reaction 08/30/2016 Hives documented as of this encounter (statuses as of 10/15/2019) Medications Medication Sig Dispensed Refills Start Date [...] with WHEEZING acute exacerbation fluticasone (FLONASE) 50 [place] 2 Sprays 1 Bottle 5 07/24/2019 Active [...] as of this encounter (statuses as of 10/15/2019) Active Problems Problem Noted Date S/P trigger finger release 10/06/2019 Trigger finger, right middle finger 09/10/2019 Overview: Added automatically from request for surgery [id number] Essential hypertension 05/07/2019 Seasonal allergies 05/07/2019 S/P [...] 08/15/2016 Generalized anxiety disorder 08/15/2016 Overview: Therapist [facility] Mild intermittent asthma without complication 08/15/2016 Overview: [facility] 2012 JASWINDER on CPAP Overview: [facility]- CPAP. AHI 35 on 07/23/17 NPSG through [facility] documented as of this encounter (statuses as of 10/15/2019) Resolved Problems Problem Noted Date Resolved Date Problem 03/03/2019 05/07/2019 Right wrist pain 12/09/2017 05/07/2019 Calculus of gallbladder without cholecystitis without 09/10/2016 10/04/2016 obstruction Gallbladder polyp 08/15/2016 10/04/2016 documented as of this encounter (statuses as of 10/15/2019) Immunizations Name Administration Dates Next Due Influenza [...] Sign Reading Time Taken Comments Blood Pressure 128/72 10/15/2019 9:49 AM EST Pulse - - Temperature - - Respiratory Rate - - Oxygen Saturation - - Inhaled Oxygen Concentration - - Weight 127.5 kg (281 lb) 10/15/2019 9:49 AM EST Height 177.8 cm (5' 10") 10/15/2019 9:49 AM EST Body Mass Index 40.32 10/15/2019 9:49 AM EST documented in this encounter Progress Notes Jorge Wahl MD - 10/15/2019 9:45 AM EST Name: Be Segovia : 1980 Date of service: 10/15/2019 Chief Complaint Patient presents with New Patient s/p right middle trigger finger release HPI: Be Segovia is a 38-y.o. y/o male, who presents at the request of Jorge Wahl for evaluation. Patient is 2 weeks postop. He is eager to get back to work. He has no complaints PAST MEDICAL HISTORY: He has a past [...] DAILY., Disp : 90 Tab, Rfl: 1 cetirizine (ZYRTEC) 10 MG Oral Tab, Take 1 Tab by mouth DAILY., Disp: 30 Tab, Rfl: 5 clonazePAM (KLONOPIN) 1 MG Oral Tab, Take 3 mg by mouth EVERY BEDTIME., Disp: , Rfl: fluticasone (FLONASE) 50 MCG/ACT Nasal Suspension, [place] 2 Sprays in nose DAILY. 2 sprays [...] FOR DIZZINESS/VERTIGO, Disp: 60 Tab, Rfl: 1 methylPREDNISolone (MEDROL PO), Take by mouth DAILY., Disp: , Rfl: metoprolol (LOPRESSOR) 25 MG Oral Tab, Take [...] his father and mother. ROS: Nursing Notes: Jacy Rodriguez LPN 10/15/2019 9:51 AM Sign at exiting of workspace PATIENT: Be Segovia : 1980 DATE OF SERVICE: 10/15/2019 Chief Complaint Patient presents with New Patient s/p right middle trigger finger release BP 128/72 | Ht 5' 10" (1.778 m) | Wt 281 lb (127.5 kg) | BMI 40.32 kg/m CONSTITUTIONAL: negative. HEENT: negative. EYES: negative. RESPIRATORY: negative. CARDIOVASCULAR: negative. GASTROINTESTINAL: negative. GENITOURINARY: negative. INTEGUMENT/BREAST: negative. HEMATOLOGIC/LYMPHATIC: negative. MUSCULOSKELETAL: Negative except right hand . NEUROLOGICAL: negative. BEHAVIORAL/PSYCH: negative. ENDOCRINE: Negative. ALLERGIC/IMMUNOLOGIC: Negative. Body mass index is 40.32 kg/m. pt aware AUTHOR: Jacy Rodriguez LPN 10/15/2019 09:50 I reviewed the above and have made changes as appropriate. Physical Exam: Vitals: BP 128/72 Ht 5' 10" (1.778 m) Wt 281 lb (127.5 kg) BMI 40.32 kg/m2 Gen: NAD, A&Ox3 SKIN/PALPATION: Normal rugal patterns, sweat, turgor, and temperature. Cuticles , nails, nail curvature, and pulp bulk are essentially normal in appearance. No skin changes. SWELLING: none WARMTH: no warmth DEFORMITY: no gross deformity or malalignment NEUROLOGICAL EXAM: Sensation intact to light touch. VASCULAR EXAM: Capillary refill is <2 seconds. Sutures are removed no erythema or drainage. Range of motion is quite good Imaging & Tests: Assessment: ICD-9-CM ICD-10-CM 1. Trigger finger, unspecified finger, unspecified laterality 727.03 M65.30 Status post trigger finger release doing well Plan & Discussion: I will see the patient back on an as-needed basis He can go back to work with no restrictions Jorge Wahl MD Hand Surgery 10/15/2019 documented in this encounter Plan of Treatment Date Type Specialty Care Team Description 03/03/2020 Office Visit Pulmonary Sandro Iyer MD [address] [place] [address] [phone] 03/09/2020 Office Visit Cardiology Jeanie Whitt CRNP [address] [address] 04/21/2020 Office Visit Endocrinology Cheri Redmond FNP [address] [facility] [place] [address] [phone] Health Maintenance Due Date Last Done Comments HEPATITIS A IMMUNIZATION SERIES Aged Out No longer eligible based on patient's age to complete this topic documented as of this encounter Goals Goal Patient Goal Associated Recent Patient-Stated? Author Type Problems Progress Blood Pressure Blood Pressure 128/72 No Earl, < 140/90 (10/15/2019 NATALIYA Hurst 9:49 AM EST) Note: This is an individualized treatment (blood pressure) goal for Be Segovia: Displayed above (on the left) is your goal for blood pressure control. Your most recent blood pressure is also shown above, on the right. You should try to achieve blood pressures that are lower than your goal listed above (on the left). Work with your Rn Hospital General Love Solis PA-C Note: This is an individualized treatment (frequent ED use) goal for Be Segovia: Please work with your Rn Hospital, who will assist you in meeting your goals of care. Weight loss vs. 18 mo Lifestyle 17 (10/15/2019 9:49 AM No Natali Elliott FNP max (lbs) [...] an individualized lifestyle goal for Besteven Segovia: Please schedule regular visits with your [...] in this encounter (Work) [address] [place] [address] documented as of this encounter
--- OUTSIDE RECORDS SUMMARY | 2019-12-07 01:35 | XMS REPORT | Summary of Care ---
:1980 Author Organization [facility] Address [address] [place] [address] Care Team Providers Name Role Phone [place] Primary Care Provider Reason for Referral Refer to Department Only (Routine) Status Reason Specialty Diagnoses / Referred By Referred To Procedures Contact Contact Pending Review ENDOCRINOLOGY Diagnoses Hypothyroidism, unspecified type Stephenie Zaragoza, [facility] [address] [place] [address] Smith Reason for Visit Reason Comments Congestion chest and sinus Encounter Details Date Type Department Care Team Description 10/30/2019 Office Visit [place] [facility] Stephenie Zaragoza, Hypothyroidism, unspecified type (Primary Dx); Practice [facility] Acute recurrent sinusitis, unspecified location; [address] [facility] [place] [address] [place] [address] [phone] Allergies Active Allergy Reactions Severity Noted Date [...] Rash 08/30/2016 Pepcid Complete Rash 08/30/2016 Prednisone GENERATOR OPERATOR Reaction 08/23/2016 Prilosec Otc Rash 08/30/2016 Quinolones Rash 08/30/2016 Sertraline GENERATOR OPERATOR Reaction, Other High 08/23/2016 Sulfamethoxazole-Trimetho Other 03/23/2019 prim Trimethoprim Rash 01/30/2018 Albuterol Sulfate Other 12/07/2016 Not effective Zantac Rash Medium 11/26/2017 Bupropion Respiratory Reaction 08/30/2016 Hives documented as of this encounter (statuses as of 10/30/2019) Medications Medication Sig Dispensed Refills Start End [...] asthma WHEEZING with acute exacerbation fluticasone (FLONASE) Bylas 2 1 Bottle 5 07/24/20 Active 50 [...] TWICE A DAY NEEDED FOR DIZZINESS/CARLOS TIGO methylPREDNISolone Take by 0 Active (MEDROL PO) mouth DAILY. predniSONE 5 MG (21) Take by 0 Active Oral Tablet Therapy mouth. Pack trazodone (DESYREL) 50 TAKE 1 TABLET 30 Tab 0 10/16/20 Discontinued MG Oral BY MOUTH AT 19 020 (Therapy TabIndications: Sleep BEDTIME Completed) disturbance NEEDED FOR SLEEP Hospital, Clinic, or Other Ordered Dose Route Frequency Start Date End Date Status Facility Administered Medication ibuprofen (MOTRIN) tablet 600 mg PO Q6 HRS PRN 02/06/2019 Active 600 mg documented as of this encounter (statuses as of 10/30/2019) Active Problems Problem Noted Date S/P trigger finger release 10/06/2019 Trigger finger, right middle finger 09/10/2019 Overview: Added automatically from request for surgery [id number] Essential hypertension 05/07/2019 Seasonal allergies 05/07/2019 S/P [...] 08/15/2016 Generalized anxiety disorder 08/15/2016 Overview: Therapist [facility] Mild intermittent asthma without complication 08/15/2016 Overview: pfts [facility] 2012 JASWINDER on CPAP Overview: [facility]- CPAP. AHI 35 on 07/23/17 NPSG through [facility] documented as of this encounter (statuses as of 10/30/2019) Resolved Problems Problem Noted Date Resolved Date Problem 03/03/2019 05/07/2019 Right wrist pain 12/09/2017 05/07/2019 Calculus of gallbladder without cholecystitis without 09/10/2016 10/04/2016 obstruction Gallbladder polyp 08/15/2016 10/04/2016 documented as of this encounter (statuses as of 10/30/2019) Immunizations Name Administration Dates Next Due Influenza [...] Sign Reading Time Taken Comments Blood Pressure 130/72 10/30/2019 9:12 AM EST Pulse 75 10/30/2019 9:12 AM EST Temperature 36.8 10/30/2019 9:12 AM EST C (98.2 F) Respiratory Rate - - Oxygen Saturation 95% 10/30/2019 9:12 AM EST Inhaled Oxygen Concentration - - Weight 130.6 kg (288 lb) 10/30/2019 9:12 AM EST Height - - Body Mass Index 41.32 10/15/2019 9:49 AM EST documented in this encounter Patient Instructions Patient InstructionsStephenie Zaragoza FNP - 10/30/2019 9:00 AM ESTRest Fluids Steam may help loosen congestion Mucinex thins mucus salt water gargle as needed for sore/scratchy throat Call if symptoms fail to resolve or worsen Finish antibiotic 9: 20 AM EST documented in this encounter Progress Notes Stephenie Zaragoza FNP - 10/30/2019 9:00 AM EST PATIENT: Be Segovia : 1980 DATE OF SERVICE: 10/30/2019 CHIEF COMPLAINT: Chief Complaint Patient presents with Congestion chest and sinus Subjective HISTORY OF PRESENT ILLNESS: Be Segovia is a 38-y.o. male. HPI URI sx - went to [facility] 10/27/[facility] - Dx sinusitis - on Prednisone and Clindamycin - still coughing. Has appointment with Die Maintenance Technician in December No notes to review at time of visit today Also needs referral to local endocrinology Past Medical History: Diagnosis Date Anxiety Asthma [...] BEDTIME. fluticasone (FLONASE) 50 MCG/ACT Nasal Suspension Bylas 2 Sprays in nose DAILY. 2 sprays eachnostril daily levothyroxine (SYNTHROID) 150 MCG Oral Tab Take 1 Tab by mouth BEFORE BREAKFAST. Losartan Potassium 100 MG Oral Tab TAKE 1 TABLET BY MOUTH EVERY DAY meclizine (ANTIVERT) 25 MG Oral Tab TAKE 1 TABLET BY MOUTH TWICE A DAY NEEDED FOR DIZZINESS/VERTIGO methylPREDNISolone (MEDROL PO) Take by mouth DAILY. metoprolol (LOPRESSOR) 25 MG Oral Tab Take 1 Tab by mouth THREE TIMES DAILY NEEDED (heart palpitaitons). mometasone furoate (ASMANEX HFA) 200 MCG/ACT Inhalation Aerosol Take 2 Puffs by inhalation DAILY. predniSONE 5 MG (21) Oral Tablet Therapy Pack Take by mouth. Spacer/Aero Chamber Mouthpiece Does not apply Misc 1 Act by Does not apply route NEEDED (use with inhalor, wheezing). 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 Negative for chills and fever. HENT: Positive for congestion. Negative for ear pain and sore throat. Respiratory: Positive for cough and shortness of breath. Negative for sputum production and wheezing. Cardiovascular: Negative for chest pain. Musculoskeletal: Positive for myalgias. Objective PHYSICAL EXAM: VITALS: BP 130/72 | Pulse 75 | Temp 98.2 F (36.8 C) (Tympanic) | Wt 288 lb (130.6 kg) |SpO2 95% | BMI 41.32 kg/m Body mass index is 41.32 kg/ m. Physical Exam Vitals signs and nursing note reviewed. Constitutional: General: He is not in acute distress. Appearance: He is obese. HENT: Head: Normocephalic and atraumatic. Right Ear: Tympanic membrane is retracted. Tympanic membrane is not erythematous. Left Ear: Tympanic membrane is retracted. Tympanic membrane is not erythematous. Nose: Mucosal edema, congestion and rhinorrhea present. Mouth/Throat: Lips: [place]. Mouth: Mucous membranes are moist. Pharynx: Oropharynx is clear. Uvula midline. Eyes: Extraocular Movements: Extraocular movements intact. Conjunctiva/sclera: Conjunctivae normal. Pupils: Pupils are equal, round, and reactive to light. Neck: Musculoskeletal: Normal range of motion. No neck rigidity. Cardiovascular: Rate and Rhythm: Normal rate and regular rhythm. Pulses: Normal pulses. Heart sounds: Normal heart sounds. Pulmonary: Effort: Pulmonary effort is normal. No respiratory distress. Breath sounds: Normal breath sounds. No wheezing, rhonchi or rales. Lymphadenopathy: Cervical: No cervical adenopathy. Skin: General: Skin is warm and dry. Capillary Refill: Capillary refill takes less than 2 seconds. Coloration: Skin is not cyanotic. Neurological: Mental Status: He is alert and oriented to person, place, and time. Cranial Nerves: Cranial nerves are intact. Gait: Gait is intact. Psychiatric: Behavior: Behavior is cooperative. ASSESSMENT / IMPRESSION: ICD-9-CM ICD-10-CM 1. Hypothyroidism, unspecified type 244.9 E03.9 REFER TO ENDOCRINOLOGY 2. Acute recurrent sinusitis, unspecified location 461.9 J01.91 3. Cough 786.2 R05 Plan Rest Fluids Steam may help loosen congestion Mucinex thins mucus salt water gargle as needed for sore/scratchy throat Call if symptoms fail to resolve or worsen Finish antibiotic Author: NATALIYA Oviedo 10/30/2019 09:32 documented in this encounter Plan of Treatment Date Type Specialty Care Team Description 01/14/2020 Office Visit Pulmonary Sandro Iyer MD [address] [place] [address] [phone] 03/03/2020 Office Visit Pulmonary Sandro Iyer MD [address] [place] [address] [phone] 03/09/2020 Office Visit Cardiology Jeanie Whitt CRNP [address] [facility] [place] [address] 04/21/2020 Office Visit Endocrinology Cheri Redmond FNP [address] [facility] [place] [address] Name Type Priority Associated Diagnoses Order Schedule REFER TO ENDOCRINOLOGY Referral Routine Hypothyroidism, Expected: unspecified type 10/30/2019, Expires: 10/30/2020 Health Maintenance Due Date Last Done Comments HEPATITIS A IMMUNIZATION SERIES Aged Out No longer eligible based on patient's age to complete this topic documented as of this encounter Goals Goal Patient Goal Associated Recent Patient-Stated? Author Type Problems Progress Blood Pressure Blood Pressure 130/72 No Earl, < 140/90 (10/30/2019 NATALIYA Hurst 9:12 AM EST) Note: This is an individualized treatment (blood pressure) goal for Be Segovia: Displayed above (on the left) is your goal for blood pressure control. Your most recent blood pressure is also shown above, on the right. You should try to achieve blood pressures that are lower than your goal listed above (on the left). Work with your Subscription Agent General Love Solis PA-C Note: This is an individualized treatment (frequent ED use) goal for Be Segovia: Please work with your Subscription Agent, who will assist you in meeting your goals of care. Weight loss vs. 18 mo Lifestyle 10 (10/30/2019 9:12 AM No Natali Elliott FNP max (lbs) [...] Regular appointments with primary care Lifestyle Love oSlis PA- C provider (PCP) Note: This is [...] filedocumented in this encounter Visit Diagnoses Diagnosis Hypothyroidism, unspecified type Acute recurrent sinusitis, unspecified location [place] documented in this encounter (Work) [address] [place] [address] documented as of this encounter"
[2019-12-07] MEDS ORDERED: Tetan/Diph/Pertus SYR(Tdap)* 0.5 ML SYR(BOOSTRIX) use SYR contains LATEX IM ONE (01:51)
--- NOTE | 2019-12-07 01:55 | ED ---
Laceration/Wound HPI - HPI Summary HPI Summary: Patient is a 38 y/o M with laceration to his right hand. He states that he cut his hand on a metal can that he was recycling this evening. Patient is concerned for tetanus as it has been years since his most recent shot. No fever as vitals show 98.3 F. Home medications and allergies are reviewed. - History of Current Complaint Stated Complaint: RT HAND LAC PER PT Time Seen by Provider: 12/07/19 01:49 Hx Obtained From: Patient Mechanism of Injury: Sharp/Blunt Trauma Onset/Duration: Still Present Current Severity: None Pain Intensity: 0 Pain Scale Used: 0-10 Numeric Associated Signs & Symptoms: Negative - Allergy/Home Medications Allergies/Adverse Reactions: Allergies Allergy/AdvReac Type Severity Reaction Status Date / Time albuterol [From Ventolin HFA] Allergy Difficulty Verified 10/09/19 20:01 Breathing bupropion Allergy Difficulty Verified 10/09/19 20:01 Breathing cephalexin Allergy Rash Verified 10/09/19 20:01 citalopram [From Celexa] Allergy See Comment Verified 10/09/19 20:01 codeine Allergy Difficulty Verified 10/09/19 20:01 Breathing doxycycline Allergy Rash Verified 10/09/19 20:01 escitalopram [From Lexapro] Allergy See Comment Verified 10/09/19 20:01 famotidine Allergy Rash Verified 10/09/19 20:01 fluticasone Allergy Difficulty Verified 10/09/19 20:01 [From Advair Diskus] Breathing Iodinated Contrast Media Allergy Itching Verified 10/09/19 20:01 [Iodinated Contrast- Oral and IV Dye] moxifloxacin Allergy Hives Verified 10/09/19 20:01 nitrofurantoin Allergy Shortness Verified 10/09/19 20:01 of Breath omeprazole [From Prilosec] Allergy Rash Verified 10/09/19 20:01 Penicillins Allergy Rash Verified 10/09/19 20:01 Quinolones Allergy Rash Verified 10/09/19 20:01 salmeterol Allergy Difficulty Verified 10/09/19 20:01 [From Advair Diskus] Breathing sertraline [From Zoloft] Allergy Hallucinati Verified 10/09/19 20:01 ons sulfamethoxazole Allergy Rash Verified 10/09/19 20:01 [From Bactrim] trimethoprim [From Bactrim] Allergy Rash Verified 10/09/19 20:01 PMH/Surg Hx/FS Hx/Imm Hx Endocrine/Hematology History: Reports: Hx Thyroid Disease Denies: Hx Anticoagulant Therapy, Hx Diabetes Cardiovascular History: Reports: Hx Hypertension Denies: Hx Congestive Heart Failure, Hx Deep Vein Thrombosis, Hx Myocardial Infarction, Hx Pacemaker/ICD Respiratory History: Reports: Hx Asthma, Hx Sleep Apnea - that was cured via surgery, Other Respiratory Problems/Disorders - pneumonia 2x Denies: Hx Chronic Obstructive Pulmonary Disease (COPD), Hx Lung Cancer, Hx Pneumonia, Hx Pulmonary Embolism GI History: Denies: Hx Gall Bladder Disease, Hx Gastrointestinal Bleed, Hx Ulcer, Hx Urosepsis History: Denies: Hx Kidney Stones, Hx Renal Disease Sensory History: Denies: Hx Contacts or Glasses, Hx Deafness, Hx Hearing Aid Opthamlomology History: Denies: Hx Contacts or Glasses Neurological History: Denies: Hx Dementia, Hx Migraine, Hx Seizures Psychiatric History: Reports: Hx Anxiety, Hx Panic Disorder - TO TAKE MEDICATION PRIOR TO MRI Denies: Hx Depression, Hx Schizophrenia, Hx Bipolar Disorder, Hx Substance Abuse - Surgical History Surgery Procedure, Year, and Place: RIGHT ELBOW RECONSTRUCTION SURGERY 1983,. SLEEP APNEA SURGERY 2010 - Tonsilectomy, uvula, stretching throat. CHOLECYSTECTOMY - 09/10/16, deviated septum. carpal tunnel 2017. cicumcision with biopsy. Nasal septum surgery 03/20/2019. rt shoulder surgery-bone spurs removed and bursitis 04/10/19. right middle finger trigger finger release - Immunization History Date of Tetanus Vaccine: unknown Date of Influenza Vaccine: 07/12/15 Infectious Disease History: No Infectious Disease History: Denies: Hx Clostridium Difficile, Hx Hepatitis, Hx Human Immunodeficiency Virus (HIV), Hx of Known/Suspected MRSA, Hx Shingles, Hx Tuberculosis, Hx Known/ Suspected VRE, Hx Known/Suspected VRSA, History Other Infectious Disease, Traveled Outside the [place] in Last 30 Days - Family History Known Family History: Positive: Cardiac Disease - two uncles in their 40s, no primary relatives, Hypertension, Diabetes, Other - TIA on paternal side, cancer on both sides, blood clots, asthma Family History: FHx of seasonal allergies - both parents. TIA on paternal side, cancer on both sides, blood clots - Social History Alcohol Use: None Hx Substance Use: No Substance Use Type: Reports: None Substance Use Comment - Amount & Last Used: benzo's in the past Hx Tobacco Use: Yes Smoking Status (MU): Former Smoker Type: Cigarettes Amount Used/How Often: 1/2 ppd Length of Time of Smoking/Using Tobacco: 15 yrs Have You Smoked in the Last Year: No Review of Systems Negative: Fever - No fever as vitals show 98.3 F. Skin: Other - positive - right hand laceration All Other Systems Reviewed And Are Negative: Yes Physical Exam - Summary Physical Exam Summary: Appearance: Well-appearing, Well-nourished, lying in bed comfortable Skin: Warm, dry, no obvious rash; very superficial laceration to the left hand with no active bleeding Eyes: sclera anicteric, no conjunctival pallor ENT: mucous membranes moist Neck: deferred Respiratory: No signs of respiratory distress Cardiovascular: Appears well perfused, pulses are nml Abdomen: deferred Musculoskeletal: Moving all 4 extremities without obvious discomfort Neurological: Awake and alert, mentation is normal, speech is fluent and appropriate Psychiatric: affect is normal, does not appear anxious or depressed Triage Information Reviewed: Yes Vital Signs On Initial Exam: Initial Vitals Temp Pulse Resp BP Pulse Ox 98.3 F 98 15 131/94 93 12/07/19 01:24 12/07/19 01:24 12/07/19 01:24 12/07/19 01:24 12/07/19 01:24 Vital Signs Reviewed: Yes Procedures - Sedation Patient Received Moderate/Deep Sedation with Procedure: No Diagnostics - Vital Signs Vital Signs Temp Pulse Resp BP Pulse Ox 12/07/19 01:24 98.3 F 98 15 131/94 93 - Laboratory Lab Statement: Any lab studies that have been ordered have been reviewed, and results considered in the medical decision making process. Laceration Repair Course/Dx - Course Course Of Treatment: Patient is a 38 y/o M with laceration to his right hand. He states that he cut his hand on a metal can that he was recycling this evening. Patient is concerned for tetanus as it has been years since his most recent shot. On exam, a very superficial laceration to the left hand with no active bleeding is noted. Patient received a tetanus shot and was discharged to home. - Clinical Impression Provider Diagnoses: Hand laceration Discharge ED - Sign-Out/Discharge Documenting (check all that apply): Patient Departure - discharge - Discharge Plan Condition: Stable Disposition: HOME Patient Education Materials: Laceration (ED) Referrals: Shad Uriostegui MD [Primary Care Provider] - Additional Instructions: Please return to ED for any new or concerning symptoms. - Billing Disposition and Condition Condition: STABLE Disposition: Home - Attestation Statements Document Initiated by Jean: Yes Documenting Scribe: SUHA DICKINSON Provider For Whom Jean is Documenting (Include Credential): RIKY PAREDES MD Scribe Attestation: ISUHA, scribed for RIKY PAREDES MD on 12/10/19 at 1845. Scribe Documentation Reviewed: Yes Provider Attestation: The documentation as recorded by the SUHA castillo accurately reflects the service I personally performed and the decisions made by me, RIKY PAREDES MD Status of Scribe Document: Viewed
== END 2019-12-07 02:09 | disposition home or self-care (01) ==
LOC: ED 01:22
DX: S61.411A Laceration without foreign body of right hand, initial encounter (principal); Z23 Encounter for immunization; W26.8XXA Contact with other sharp object(s), not elsewhere classified, initial encounter; Y92.009 Unspecified place in unspecified non-institutional (private) residence as the place of occurrence of the external cause; E07.9 Disorder of thyroid, unspecified; I10 Essential (primary) hypertension; J45.909 Unspecified asthma, uncomplicated; F41.9 Anxiety disorder, unspecified; Z90.49 Acquired absence of other specified parts of digestive tract; Z87.891 Personal history of nicotine dependence; Z88.5 Allergy status to narcotic agent; Z88.0 Allergy status to penicillin; Z88.2 Allergy status to sulfonamides; Z88.8 Allergy status to other drugs, medicaments and biological substances; Z88.1 Allergy status to other antibiotic agents; Z91.041 Radiographic dye allergy status
CPT/HCPCS: 90471; 90715; 99281

== ENCOUNTER 2020-01-01 16:51 | Emergency (ER) | payer BC, OTHER ==
[2020-01-01 16:55] VITALS: BP 144/89
--- OUTSIDE RECORDS SUMMARY | 2020-01-01 17:02 | XMS REPORT | Summary of Care ---
:1980 Author Organization [facility] Address [address] [address] Care Team Providers Name Role Phone Shad Uriostegui Primary Care Provider Reason for Visit Reason Comments Follow-up 6 week f/u middle finger right trigger finger. Encounter Details Date Type Department Care Team Description 12/31/2019 Office Visit [facility] - Jorge Wahl, Pain of hand , [place] unspecified [address] [facility] [address] [facility] laterality (Primary [address] Dx) [place], [place] [address] [place] [address] [phone] Allergies Active Allergy Reactions Severity Noted Date [...] Rash 08/30/2016 Pepcid Complete Rash 08/30/2016 Prednisone ICE CREAM MAN Reaction 08/23/2016 Prilosec Otc Rash 08/30/2016 Quinolones Rash 08/30/2016 Sertraline ICE CREAM MAN Reaction, Other High 08/23/2016 Sulfamethoxazole-Trimetho Other 03/23/2019 prim Trimethoprim Rash 01/30/2018 Albuterol Sulfate Other 12/07/2016 Not effective Zantac Rash Medium 11/26/2017 Bupropion Respiratory Reaction 08/30/2016 Hives documented as of this encounter (statuses as of 12/31/2019) Medications Medication Sig Dispensed Refills Start Date End Date Status clonazePAM Take 3 mg by mouth 0 Active (KLONOPIN) 1 MG Oral EVERY BEDTIME. Tab Spacer/Aero Chamber 1 Act by Does not 1 Device 0 04/23/2019 Active Mouthpiece Does not apply route apply Misc NEEDED (use with inhalor, wheezing). cetirizine (ZYRTEC) Take 1 Tab by 30 Tab 5 05/21/2019 Active 10 MG Oral Tab mouth DAILY. fluticasone [place] 2 Sprays in 1 Bottle 5 07/24/2019 Active (FLONASE) 50 MCG/ACT nose DAILY. 2 0 Nasal Suspension sprays each nostril daily atorvastatin Take 1 Tab by 90 Tab 1 08/17/2019 Active (LIPITOR) 40 MG Oral mouth DAILY. TabIndications: Mixed hyperlipidemia levothyroxine Take 1 Tab by 30 Tab 4 08/20/2019 Active (SYNTHROID) 150 MCG mouth BEFORE Oral Tab BREAKFAST. mometasone furoate Take 2 Puffs by 1 Inhaler 5 09/03/2019 Active (ASMANEX HFA) 200 inhalation DAILY. MCG/ACT Inhalation Aerosol meclizine (ANTIVERT) TAKE 1 TABLET BY 60 Tab 1 09/28/2019 Active 25 MG Oral Tab MOUTH TWICE A DAY NEEDED FOR DIZZINESS/VERTIGO albuterol HFA TAKE 2 PUFFS BY 8.5 Inhaler 3 11/03/2019 Active (VENTOLIN) 108 (90 MOUTH EVERY 4 Base) MCG/ACT HOURS NEEDED Inhalation Aero FOR WHEEZE SolnIndications: Mild intermittent asthma with acute exacerbation azithromycin Take 2 pills on 6 Tab 0 11/11/2019 Active (ZITHROMAX Z-SHANT) the first day and 250 MG Oral Tab 1 pill each day for 4 days methylPREDNISolone, Take as directed 21 Tab 0 11/19/2019 Active dose-shant, (MEDROL) 4 MG Oral Tablet Therapy Pack Losartan Potassium TAKE 1 TABLET BY 30 Tab 5 12/07/2019 Active 100 MG Oral MOUTH EVERY DAY TabIndications: Essential hypertension metoprolol TAKE 1 TABLET BY 90 Tab 1 12/18/2019 Active (LOPRESSOR) 25 MG MOUTH 3 TIMES A Oral Tab DAY NEEDED FOR HEART PALPITATIONS documented as of this encounter (statuses as of 12/31/2019) Active Problems Problem Noted Date S/P trigger finger release 10/06/2019 Trigger finger, right middle finger 09/10/2019 Overview: Added automatically from request for surgery [id number] Essential hypertension 05/07/2019 Seasonal allergies 05/07/2019 S/P nasal septoplasty 03/20/2019 Trigger middle finger of right hand 07/31/2018 S/P carpal tunnel release 02/10/2018 Carpal tunnel syndrome of right wrist 12/09/2017 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 Mild intermittent asthma without complication 08/15/2016 Overview: [facility] 2011 JASWINDER on CPAP Overview: [facility] Professional [facility] Care- CPAP. AHI 35 on 07/23/17 NPSG through [facility] documented as of this encounter (statuses as of 12/31/2019) Resolved Problems Problem Noted Date Resolved Date Problem 03/03/2019 05/07/2019 Right wrist pain 12/09/2017 05/07/2019 Calculus of gallbladder without cholecystitis without 09/10/2016 10/04/2016 obstruction Gallbladder polyp 08/15/2016 10/04/2016 documented as of this encounter (statuses as of 12/31/2019) Immunizations Name Administration Dates Next Due Influenza (IM) Preservative Free 08/06/2019, 11/06/2018, 07/16/2017, 08/15/2016, 08/16/2015 MMR VACCINE 02/16/2019, 01/12/2019 PNEUMOCOCCAL POLYSACCHARIDE VACCINE 11/06/2016 Pneumococcal Conjugate(13 Valent) 08/15/2016 TDAP Vaccine 12/09/2018 documented as of this encounter Social History Tobacco Use Types Packs/Day Years Used Date Former Smoker 0 Smokeless Tobacco: Never Used Tobacco Cessation: Counseling Given: No Alcohol Use Drinks/Week oz/Week Comments No Alcohol Habits Answer Date Recorded How often do you have a drink containing alcohol? Not asked How many drinks containing alcohol do you have on a typical Not asked day when you are drinking? How often do you have six or more drinks on one occasion? Never 03/11/2019 Sex Assigned at Date Recorded Not on file documented as of this encounter Last Filed Vital Signs Vital Sign Reading Time Taken Comments Blood Pressure 135/76 12/31/2019 11:38 AM EST Pulse - - Temperature - - Respiratory Rate - - Oxygen Saturation - - Inhaled Oxygen Concentration - - Weight 132.5 kg (292 lb) 12/31/2019 11:38 AM EST Height 177.8 cm (5' 10") 12/31/2019 11:38 AM EST Body Mass Index 41.9 12/31/2019 11:38 AM EST documented in this encounter Progress Notes Jorge Wahl MD - 12/31/2019 11:30 AM EST Name: Be Segovia : 1980 Date of service: 12/31/2019 Chief Complaint Patient presents with ? Follow-up 6 week f/u middle finger right trigger finger. HPI: Be Segovia is a 39-y.o. y/o male, who presents at the request of Jorge Wahl for evaluation. Status post trigger release. Patient has slight popping of his knuckle. He has no triggering he has very slight tenderness at the operative site PAST MEDICAL HISTORY: He has a past [...] remove tonsils/adenoids,10+ y/o. MEDICATIONS: Current Outpatient Medications: ? albuterol HFA (VENTOLIN) 108 (90 Base) MCG/ACT Inhalation Aero Soln, TAKE 2 PUFFS BY MOUTH EVERY 4 HOURS NEEDED FOR WHEEZE, Disp: 8.5 Inhaler, Rfl : 3 ? atorvastatin (LIPITOR) 40 MG Oral Tab, Take 1 Tab by mouth DAILY., Disp : 90 Tab, Rfl: 1 ? azithromycin (ZITHROMAX Z-SHANT) 250 MG Oral Tab, Take 2 pills on the first day and 1 pill each day for 4 days, Disp: 6 Tab, Rfl: 0 ? cetirizine (ZYRTEC) 10 MG Oral Tab, Take 1 Tab by mouth DAILY., Disp: 30 Tab, Rfl: 5 ? clonazePAM (KLONOPIN) 1 MG Oral Tab, Take 3 mg by mouth EVERY BEDTIME. , Disp: , Rfl: ? fluticasone (FLONASE) 50 MCG/ACT Nasal Suspension, [place] 2 Sprays in nose DAILY. 2 sprays each nostril daily, Disp: 1 Bottle, Rfl: 5 ? levothyroxine (SYNTHROID) 150 MCG Oral Tab, Take 1 Tab by mouth BEFORE BREAKFAST., Disp: 30Tab, Rfl: 4 ? Losartan Potassium 100 MG Oral Tab, TAKE 1 TABLET BY MOUTH EVERY DAY, Disp: 30 Tab, Rfl: 5 ? meclizine (ANTIVERT) 25 MG Oral Tab, TAKE 1 TABLET BY MOUTH TWICE A DAY NEEDED FOR DIZZINESS/VERTIGO, Disp: 60 Tab, Rfl: 1 ? methylPREDNISolone, dose-shant, (MEDROL) 4 MG Oral Tablet Therapy Pack, Take as directed, Disp: 21 Tab, Rfl: 0 ? metoprolol (LOPRESSOR) 25 MG Oral Tab, TAKE 1 TABLET BY MOUTH 3 TIMES A DAY NEEDED FOR HEART PALPITATIONS, Disp: 90 Tab, Rfl: 1 ? mometasone furoate (ASMANEX HFA) 200 MCG/ACT Inhalation Aerosol, Take 2 Puffs by inhalationDAILY., Disp: 1 Inhaler, Rfl: 5 ? Spacer/Aero Chamber Mouthpiece Does not apply Misc, 1 Act by Does not apply route NEEDED(use with inhalor, wheezing)., Disp: 1 Device, Rfl: 0 ALLERGIES: He is allergic to sertraline; zantac; [...] his father and mother. ROS: Nursing Notes: Mariluz Cochran LPN 12/31/2019 11:41 AM Signed NAME: Be Segovia : 1980 DATE OF SERVICE: 12/31/2019 Chief Complaint Patient presents with ? Follow-up 6 week f/u middle finger right trigger finger. BP 135/76 | Ht 5' 10" (1.778 m) | Wt 292 lb (132.5 kg) | BMI 41.90 kg/m CONSTITUTIONAL: negative. HEENT: negative. EYES: negative RESPIRATORY: negative. CARDIOVASCULAR: negative. GASTROINTESTINAL: negative. GENITOURINARY: negative. INTEGUMENT/BREAST: negative. HEMATOLOGIC/LYMPHATIC: negative. MUSCULOSKELETAL: negative except right hand. NEUROLOGICAL: negative. BEHAVIORAL/PSYCH: negative. ENDOCRINE: negative. ALLERGIC/IMMUNOLOGIC: Negative. Body mass index is 41.9 kg/m. - Patient Educated. AUTHOR: Mariluz Cochran LPN 12/31/2019 11:41 I reviewed the above and have made changes as appropriate. Physical Exam: Vitals: BP 135/76 Ht 5' 10" (1.778 m) Wt 292 lb (132.5 kg) BMI 41.9 kg/m2 Gen: NAD, A&Ox3 SKIN/PALPATION: Normal rugal patterns, sweat, turgor, and temperature. Cuticles , nails, nail curvature, and pulp bulk are essentially normal in appearance. No skin changes. SWELLING: none WARMTH: no warmth DEFORMITY: no gross deformity or malalignment NEUROLOGICAL EXAM: Sensation intact to light touch. VASCULAR EXAM: Capillary refill is <2 seconds no further triggering. Full range of motion. Normal strength and stability. Very slight operative site discomfort Imaging & Tests: Assessment: ICD-9-CM ICD-10-CM 1. Pain of hand, unspecified laterality 729.5 M79.643 Status post trigger release Plan & Discussion: --No further intervention I will see the patient back on an as-needed basis Jorge Wahl MD Hand Surgery 12/31/2019 documented in this encounter Plan of Treatment Date Type Specialty Care Team Description 01/12/2020 Office Visit Otorhinolaryngology Zechariah Suggs Jr., MD [address] [phone] 01/14/2020 Office Visit Pulmonary Sandro Iyer MD [address] [place] [address] 03/03/2020 Office Visit Pulmonary Sandor Iyer MD [address] [place] [address] [address] 03/09/2020 Office Visit Cardiology Jeanie Whitt CRNP [address] [place] [address] 04/21/2020 Office Visit Endocrinology Cheri Redmond FNP [address] [facility] [address] [place] [address] [phone] Health Maintenance Due Date Last Done Comments HEPATITIS A IMMUNIZATION SERIES Aged Out No longer eligible based on patient's age to complete this topic documented as of this encounter Goals Goal Patient Goal Associated Recent Patient-Stated? Author Type Problems Progress Blood Pressure Blood Pressure 135/76 No Earl, < 140/90 (12/31/2019 NATALIYA Hurst 11:38 AM EST) Note: This is an individualized treatment (blood pressure) goal for Be Burkett Luca: Displayed above (on the left) is your goal for blood pressure control. Your most recent blood pressure is also shown above, on the right. You should try to achieve blood pressures that are lower than your goal listed above (on the left). Work with your Hood Maker General Love Solis PA-C Note: This is an individualized treatment (frequent ED use) goal for Be Madelaine Segovia: Please work with your Hood Maker, who will assist you in meeting your goals of care. Weight loss vs. 18 mo Lifestyle 6 (12/31/2019 11:38 AM No Natali Elliott FNP max (lbs) [...] filedocumented in this encounter Visit Diagnoses Diagnosis Pain of hand, unspecified laterality documented in this encounter (Work) [address] [place] [address] documented as of this encounter
--- OUTSIDE RECORDS SUMMARY | 2020-01-01 17:02 | XMS REPORT | Summary of Care ---
:[address] [facility] Address [address] [address] Care Team Providers Name Role Phone Shad Uriostegui Primary Care Provider Reason for Visit Reason Comments Hand Pain Encounter Details Date Type Department Care Team Description 12/11/2019 Office Visit [facility] - Jodie Mari, PT Trigger finger, [place] [facility] [address] unspecified finger, Therapy [address] [place] [address] laterality (Primary [address] [phone] Dx) [place] [address] [phone] Allergies Active Allergy Reactions Severity Noted Date [...] Rash 08/30/2016 Pepcid Complete Rash 08/30/2016 Prednisone SUMMER NANNY Reaction 08/23/2016 Prilosec Otc Rash 08/30/2016 Quinolones Rash 08/30/2016 Sertraline SUMMER NANNY Reaction, Other High 08/23/2016 Sulfamethoxazole-Trimetho Other 03/23/2019 prim Trimethoprim Rash 01/30/2018 Albuterol Sulfate Other 12/07/2016 Not effective Zantac Rash Medium 11/26/2017 Bupropion Respiratory Reaction 08/30/2016 Hives documented as of this encounter (statuses as of 12/11/2019) Medications Medication Sig Dispensed Refills Start Date [...] 10 MG Oral Tab mouth DAILY. fluticasone (FLONASE) [place] 2 Sprays 1 Bottle 5 07/24/2019 07/23/2020 [...] Oral MOUTH EVERY DAY TabIndications: Essential hypertension documented as of this encounter (statuses as of 12/11/2019) Active Problems Problem Noted Date S/P trigger finger release 10/06/2019 Trigger finger, right middle finger 09/10/2019 Overview: Added automatically from request for surgery [id number] Essential hypertension 05/07/2019 Seasonal allergies 05/07/2019 S/P [...] 08/15/2016 Generalized anxiety disorder 08/15/2016 Overview: Therapist [facility] Mild intermittent asthma without complication 08/15/2016 Overview: [facility] 2011 JASWINDER on CPAP Overview: [facility] Professional Home Care- CPAP. AHI 35 on 07/23/17 NPSG through [facility] documented as of this encounter (statuses as of 12/11/2019) Resolved Problems Problem Noted Date Resolved Date Problem 03/03/2019 05/07/2019 Right wrist pain 12/09/2017 05/07/2019 Calculus of gallbladder without cholecystitis without 09/10/2016 10/04/2016 obstruction Gallbladder polyp 08/15/2016 10/04/2016 documented as of this encounter (statuses as of 12/11/2019) Immunizations Name Administration Dates Next Due Influenza [...] encounter Progress Notes Jodie Mari, PT - 12/11/2019 1:[address] [facility] Treatment Note Outpatient Physical [facility] [place] [facility] [address] [place] [phone] Treatment Number: 2 Referring Physician: Jorge Wahl Primary Diagnosis: ICD-9-CM ICD-10-CM 1. Trigger finger, unspecified finger, unspecified laterality 727.03 M65.30 Plan of Care Expiration Date: Time In: 99 Time Out: 123 Total Session Minutes: 24 Pain at Start of Care: 0/10 Pain at End of Care: 0/10 Subjective Comments: Gets clicking if flexes the fingers fast. 3rd digit knuckle is sore once in awhile. No trigger finger like symptoms. Is doing a lot of massage and stretching. Interventions: Therapeutic Exercises (51594) Number of Exercises?: 3 Total Minutes (all Therapeutic Exercise): 9 Exercise #1 Exercise Name: Wrist extension/flexion stretch Reason for Exercise: Flexibility Location/Body Area: Wrist;Hand Sets/Reps: 3x30 seconds Exercise #2 Exercise Name: finger extension stretch Reason for Exercise: Flexibility Location/Body Area: Hand Sets/Reps: 3x30 seconds Exercise #3 Exercise Name: joint distraction Reason for Exercise: Joint Mobility Location/Body Area: Hand Sets/Reps: 10 Manual Therapy (07473) Soft Tissue Mobilization: Scar Mobilization Soft Tissue Mobilization Details: scar massage and STM to flexor tendons Joint Mobilization: MCP distraction Total Minutes (All Manual Therapy): 10 Modalities Modalities Needed?: Ultrasound Ultrasound (32415) Reason for Use: soft tissue extensibility Body Area: bautista Frequency: 1.0 MHz Frequency Description: Continuous Intensity: 1 Total Minutes: 5 minutes Assessment: Patient demonstrates full finger ROM. Scar tissue noted with pain during MCP distraction but not finger ROM. Patient also reports ongoing difficulty in mopping/sweeping. Skilled PhysicalTherapy services are required to address ongoing functional and objective limitations/impairments including painful joint distraction and adhesions at the flexor tendon. Plan for Next Visit: Continue per POC. Total UNTIMED Code Treatment Minutes: Total TIMED Code Treatment Minutes: 24 Total Treatment Minutes: 24 Re- Eval: Insurance/Visits: Author: Jodie Mari, PT 12/11/2019 13:25 documented in this encounter Plan of Treatment Date Type Specialty Care Team Description 12/25/2019 Office Visit Physical Therapy Jodie Mari, PT [address] [place] [address] 12/31/2019 Office Visit Orthopedics Jorge Wahl MD [address] [facility] [address] [place] [address] [phone] 01/14/2020 Office Visit Pulmonary Sandro Iyer MD [address] [place] [address] [phone] 03/03/2020 Office Visit Pulmonary Sandro Iyer MD [address] [place] [address] [phone] 03/09/2020 Office Visit Cardiology Jeanie Whitt CRNP [address] [place] [address] 04/21/2020 Office Visit Endocrinology Cheri Redmond, NATALIYA [address] [facility] [address] [place] [address] [phone] Health Maintenance Due Date Last Done Comments [...] above (on the left). Work with your Traditional Chinese Herbalist General Love Solis PA-C Note: This is an individualized treatment (frequent ED use) goal for Besteven Segovia: Please work with your Traditional Chinese Herbalist, who will assist you in meeting your goals of care. Weight loss vs. 18 mo Lifestyle 6 (11/19/2019 9:32 AM No Natali Elliott FNP max (lbs) [...] an individualized lifestyle goal for Be Madelaine Luca: Please schedule regular visits with your primary [...] in this encounter (Work) [address] [place] [address] documented as of this encounter
--- OUTSIDE RECORDS SUMMARY | 2020-01-01 17:02 | XMS REPORT | Summary of Care ---
:1980 Author Organization [facility] Address [address] [address] Care Team Providers Name Role Phone Shad Uriostegui Primary Care Provider Reason for Visit Reason Comments Hand Pain Encounter Details Date Type Department Care Team Description 12/25/2019 Office Visit [facility] - Jodie Mari, PT Trigger finger, [place] [facility] [address] unspecified finger, Therapy [address] [place] [address] laterality (Primary [address] [phone] Dx) [place] [address] [phone] Allergies Active Allergy Reactions Severity Noted Date [...] Rash 08/30/2016 Pepcid Complete Rash 08/30/2016 Prednisone FACE BURLER Reaction 08/23/2016 Prilosec Otc Rash 08/30/2016 Quinolones Rash 08/30/2016 Sertraline FACE BURLER Reaction, Other High 08/23/2016 Sulfamethoxazole-Trimetho Other 03/23/2019 prim Trimethoprim Rash 01/30/2018 Albuterol Sulfate Other 12/07/2016 Not effective Zantac Rash Medium 11/26/2017 Bupropion Respiratory Reaction 08/30/2016 Hives documented as of this encounter (statuses as of 12/25/2019) Medications Medication Sig Dispensed Refills Start Date [...] 10 MG Oral Tab mouth DAILY. fluticasone [place] 2 Sprays in 1 Bottle 5 07/24/2019 [...] as of this encounter (statuses as of 12/25/2019) Active Problems Problem Noted Date S/P trigger finger release 10/06/2019 Trigger finger, right middle finger 09/10/2019 Overview: Added automatically from request for surgery [id number] Essential hypertension 05/07/2019 Seasonal allergies 05/07/2019 S/P [...] 08/15/2016 Generalized anxiety disorder 08/15/2016 Overview: Therapist [facility] Mild intermittent asthma without complication 08/15/[address] [facility] 2012 JASWINDER on CPAP Overview: [facility] Professional Home Care- CPAP. AHI 35 on 07/23/17 NPSG through [facility] documented as of this encounter (statuses as of 12/25/2019) Resolved Problems Problem Noted Date Resolved Date Problem 03/03/2019 05/07/2019 Right wrist pain 12/09/2017 05/07/2019 Calculus of gallbladder without cholecystitis without 09/10/2016 10/04/2016 obstruction Gallbladder polyp 08/15/2016 10/04/2016 documented as of this encounter (statuses as of 12/25/2019) Immunizations Name Administration Dates Next Due Influenza [...] encounter Progress Notes Jodie Mari, PT - 12/25/2019 12:30 PM EST [facility] Treatment Note Outpatient Physical Therapy [facility] [address] [place] [phone] Treatment Number: 3 Referring Physician: Jorge Wahl Primary Diagnosis: ICD-9-CM ICD-10-CM 1. Trigger finger, unspecified finger, unspecified laterality 727.03 M65.30 Plan of Care Expiration Date: Time In: 1235 Time Out: 1250 Total Session Minutes: 15 Pain at Start of Care: 0/10 Pain at End of Care: 0/10 Subjective Comments: Patient reports pain at the 3rd MCP on the dorsal side. Denies pain at the incision and no popping or snapping Interventions: Therapeutic Exercises (81815) Total Minutes (all Therapeutic Exercise): 10 Ultrasound (65348) Reason for Use: soft tissue extensibility Body Area: bautista Frequency: 1.0 MHz Frequency Description: Continuous Intensity: 1 Total Minutes: 5 minutes Assessment: Patient demonstrates full finger ROM, full wrist ROM and good recall of HEP. Pain at the 3rd MTP with finger flexion but only on the ventral side. Follows up with physician next week. Plan for Next Visit: Patient will be d/c'd to HEP unless otherwise indicated by physician at followup Total UNTIMED Code Treatment Minutes: Total TIMED Code Treatment Minutes: 15 Total Treatment Minutes: 15 Re- Eval: Insurance/Visits: Author: Jodie Mari, PT 12/25/2019 12:58 documented in this encounter Plan of Treatment Date Type Specialty Care Team Description 12/31/2019 Office Visit Orthopedics Jorge Wahl MD [address] [facility] [address] [place], [place] [id number] 01/14/2020 Office Visit Pulmonary Sandro Iyer MD [address] [place] [id number] 03/03/2020 Office Visit Pulmonary Sandro Iyer MD [address] [place] [address] 03/09/2020 Office Visit Cardiology Jeanie Whitt CRNP [address] [facility] [address] [place] [address] 04/21/2020 Office Visit Endocrinology Cheri Redmond FNP [address] [facility] [address] [place] [address] Health Maintenance Due Date [...] above (on the left). Work with your Golf Starter And Ranger General No Love Matias PA-C Note: This is an individualized treatment (frequent ED use) goal for Be Segovia: Please work with your Golf Starter And Ranger, who will assist you in meeting your [...] in this encounter (Work) [address] [place] [address] documented as of this encounter
== END 2020-01-01 18:40 | disposition left against medical advice (07) ==
LOC: ED 16:51
DX: R05 Cough (principal); Z53.21 Procedure and treatment not carried out due to patient leaving prior to being seen by health care provider
CPT/HCPCS: 99281

== ENCOUNTER 2020-01-05 00:04 | Emergency (ER) | payer BC, OTHER ==
--- NOTE | 2020-01-05 01:44 | ED ---
Influenza-Like Illness - HPI Summary HPI Summary: 39 year old Male presents with cough for the past week. He was diagnosed with bronchitis and placed on steroid and antibiotic he believes clindamycin. States that he's had nonproductive cough. States cough is worse. He denies any chest pain or shortness of breath. No vomiting. No nausea. He admits to slight sore throat. No sinus congestion. Has history asthma. Does not smoke. no Recent travel. He states his exposed the flu. - History of Current Complaint Chief Complaint: EDUpperRespComplaint Time Seen by Provider: 01/05/20 01:27 - Allergy/Home Medications Allergies/Adverse Reactions: Allergies Allergy/AdvReac Type Severity Reaction Status Date / Time albuterol [From Ventolin HFA] Allergy Difficulty Verified 01/05/20 00:07 Breathing bupropion Allergy Difficulty Verified 01/05/20 00:07 Breathing cephalexin Allergy Rash Verified 01/05/20 00:07 citalopram [From Celexa] Allergy See Comment Verified 01/05/20 00:07 codeine Allergy Difficulty Verified 01/05/20 00:07 Breathing doxycycline Allergy Rash Verified 01/05/20 00:07 escitalopram [From Lexapro] Allergy See Comment Verified 01/05/20 00:07 famotidine Allergy Rash Verified 01/05/20 00:07 fluticasone Allergy Difficulty Verified 01/05/20 00:07 [From Advair Diskus] Breathing Iodinated Contrast Media Allergy Itching Verified 01/05/20 00:07 [Iodinated Contrast- Oral and IV Dye] moxifloxacin Allergy Hives Verified 01/05/20 00:07 nitrofurantoin Allergy Shortness Verified 01/05/20 00:07 of Breath omeprazole [From Prilosec] Allergy Rash Verified 01/05/20 00:07 Penicillins Allergy Rash Verified 01/05/20 00:07 Quinolones Allergy Rash Verified 01/05/20 00:07 salmeterol Allergy Difficulty Verified 01/05/20 00:07 [From Advair Diskus] Breathing sertraline [From Zoloft] Allergy Hallucinati Verified 01/05/20 00:07 ons sulfamethoxazole Allergy Rash Verified 01/05/20 00:07 [From Bactrim] trimethoprim [From Bactrim] Allergy Rash Verified 01/05/20 00:07 Home Medications: Home Medications clonazePAM TAB(*) [Klonopin TAB(*)] 3 mg PO DAILY 07/30/12 [History Confirmed ] Meclizine TAB* [Antivert 12.5 TAB*] 25 mg PO TID PRN #15 tab MDD 3 07/28/18 [Rx Confirmed 01/05/20] Losartan Potassium 100 mg PO DAILY 12/14/18 [History Confirmed 01/05/20] Calcium Carbonate CHEW TAB* [Tums*] 1,000 mg PO BID PRN 01/17/19 [History Confirmed 01/05/20] diphenhydrAMINE HCl [Benadryl Allergy 25 MG CAP] 50 mg PO QPM PRN 01/17/19 [ History Confirmed 01/05/20] Levothyroxine TAB* [Synthroid 137 MCG TAB*] 150 mcg PO DAILY 04/20/19 [History Confirmed 01/05/20] Fluticasone NASAL SPRAY 50MCG* [Flonase NASAL SPRAY 50MCG*] 1 spray INH DAILY [History Confirmed 01/05/20] Metoprolol Succinate [Metoprolol Succinate ER] 25 mg PO SEE INSTRUCTIONS [History Confirmed 01/05/20] Asthmanex Inhaler* 2 inh INH DAILY 10/09/19 [History Confirmed 01/05/20] Benzonatate CAP* [Tessalon 100 MG CAP*] 100 mg PO TID PRN #21 cap 10/09/19 [Rx Confirmed 01/05/20] Proair Inhaler* 2 inh INH DAILY 10/09/19 [History Confirmed 01/05/20] clindamycin HCL [Clindamycin HCl] 300 mg PO TID 7 Days #21 capsule 10/09/19 [Rx Confirmed 01/05/20] predniSONE 10 mg TAB [Deltasone 10 MG TAB*] 40 mg PO DAILY 10/09/19 [History Confirmed 01/05/20] PMH/Surg Hx/FS Hx/Imm Hx Endocrine/Hematology History: Reports: Hx Thyroid Disease Denies: Hx Anticoagulant Therapy, Hx Diabetes Cardiovascular History: Reports: Hx Hypertension Denies: Hx Congestive Heart Failure, Hx Deep Vein Thrombosis, Hx Myocardial Infarction, Hx Pacemaker/ICD Respiratory History: Reports: Hx Asthma, Hx Sleep Apnea - that was cured via surgery, Other Respiratory Problems/Disorders - pneumonia 2x Denies: Hx Chronic Obstructive Pulmonary Disease (COPD), Hx Lung Cancer, Hx Pneumonia, Hx Pulmonary Embolism GI History: Denies: Hx Gall Bladder Disease, Hx Gastrointestinal Bleed, Hx Ulcer, Hx Urosepsis History: Denies: Hx Kidney Stones, Hx Renal Disease Sensory History: Denies: Hx Contacts or Glasses, Hx Deafness, Hx Hearing Aid Opthamlomology History: Denies: Hx Contacts or Glasses Neurological History: Denies: Hx Dementia, Hx Migraine, Hx Seizures Psychiatric History: Reports: Hx Anxiety, Hx Panic Disorder - TO TAKE MEDICATION PRIOR TO MRI Denies: Hx Depression, Hx Schizophrenia, Hx Bipolar Disorder, Hx Substance Abuse - Surgical History Surgery Procedure, Year, and Place: RIGHT ELBOW RECONSTRUCTION SURGERY 1983,. SLEEP APNEA SURGERY 2010 - Tonsilectomy, uvula, stretching throat. CHOLECYSTECTOMY - 09/10/16, deviated septum. carpal tunnel 2017. cicumcision with biopsy. Nasal septum surgery 03/20/2019. rt shoulder surgery-bone spurs removed and bursitis 04/10/19. right middle finger trigger finger release - Immunization History Date of Tetanus Vaccine: unknown Date of Influenza Vaccine: 07/12/15 Infectious Disease History: No Infectious Disease History: Denies: Hx Clostridium Difficile, Hx Hepatitis, Hx Human Immunodeficiency Virus (HIV), Hx of Known/Suspected MRSA, Hx Shingles, Hx Tuberculosis, Hx Known/ Suspected VRE, Hx Known/Suspected VRSA, History Other Infectious Disease, Traveled Outside the [place] in Last 30 Days - Family History Known Family History: Positive: Cardiac Disease - two uncles in their 40s, no primary relatives, Hypertension, Diabetes, Other - TIA on paternal side, cancer on both sides, blood clots, asthma Family History: FHx of seasonal allergies - both parents. TIA on paternal side, cancer on both sides, blood clots - Social History Alcohol Use: None Hx Substance Use: No Substance Use Type: Reports: None Substance Use Comment - Amount & Last Used: benzo's in the past Hx Tobacco Use: Yes Smoking Status (MU): Former Smoker Type: Cigarettes Amount Used/How Often: 1/2 ppd Length of Time of Smoking/Using Tobacco: 15 yrs Have You Smoked in the Last Year: No Review of Systems Negative: Fever Negative: Chest Pain Positive: Cough. Negative: Shortness Of Breath Negative: Abdominal Pain All Other Systems Reviewed And Are Negative: Yes Physical Exam Triage Information Reviewed: Yes Vital Signs On Initial Exam: Initial Vitals Temp Pulse Resp BP Pulse Ox 97.4 F 84 15 124/86 95 01/05/20 00:05 01/05/20 00:05 01/05/20 00:05 01/05/20 00:05 01/05/20 00:05 Vital Signs Reviewed: Yes Appearance: Positive: Well-Appearing Skin: Positive: Warm, Dry Head/Face: Positive: Normal Head/Face Inspection Eyes: Positive: Normal, EOMI, GABINO, Conjunctiva Clear ENT: Positive: Normal ENT inspection, Pharynx normal, TMs normal Respiratory/Lung Sounds: Positive: Clear to Auscultation, Breath Sounds Present Cardiovascular: Positive: Normal, RRR Abdomen Description: Positive: Nontender, Soft Bowel Sounds: Positive: Present Musculoskeletal: Positive: Normal Neurological: Positive: Normal Psychiatric: Positive: Normal Procedures - Sedation Patient Received Moderate/Deep Sedation with Procedure: No Diagnostics - Vital Signs Vital Signs Temp Pulse Resp BP Pulse Ox 01/05/20 00:05 97.4 F 84 15 124/86 95 - Laboratory Lab Results: Lab Results 01/05/20 Range/Units 01:32 Influenza A (Rapid) Pending Influenza B (Rapid) Pending Lab Statement: Any lab studies that have been ordered have been reviewed, and results considered in the medical decision making process. - Radiology chest Radiology Interpretation Completed By: ED Physician Summary of Radiographic Findings: no pneumonia Flu Symptom Course/Dx - Course Course Of Treatment: 39 year old Male presents with cough for the past week. He was diagnosed with bronchitis and placed on steroid and antibiotic he believes clindamycin. States that he's had nonproductive cough. States cough is worse. He denies any chest pain or shortness of breath. No vomiting. No nausea. He admits to slight sore throat. No sinus congestion. Has history asthma. Does not smoke. no Recent travel. He states his exposed the flu. On exam lungs clear to auscultation. Flu is negative. Chest x-ray normal. Told to follow up primary. Patient understands and agrees with plan. - Diagnoses Differential Diagnosis/HQI/PQRI: Positive: Bronchitis, Influenza, Pneumonia Provider Diagnoses: Bronchitis Discharge ED - Sign-Out/Discharge Documenting (check all that apply): Patient Departure - Discharge Plan Condition: Good Disposition: HOME Patient Education Materials: Acute Bronchitis (ED) Forms: *Work Release Referrals: Shad Uriostegui MD [Primary Care Provider] - Additional Instructions: Drink plenty of fluids use inhaler as needed Follow up with primary within 5 days Return to ED if develop any new or worsening symptoms - Billing Disposition and Condition Condition: GOOD Disposition: Home
[2020-01-05 01:59] LABS: Influenza A Molecular Negative (Negative); Influenza B Molecular Negative (Negative)
[2020-01-05 02:15] VITALS: BP 134/74
== END 2020-01-05 02:14 | disposition home or self-care (01) ==
LOC: ED 00:04
DX: J40 Bronchitis, not specified as acute or chronic (principal); E03.9 Hypothyroidism, unspecified; R05 Cough; I10 Essential (primary) hypertension; Z87.891 Personal history of nicotine dependence; Z88.2 Allergy status to sulfonamides; Z88.0 Allergy status to penicillin; Z88.8 Allergy status to other drugs, medicaments and biological substances
CPT/HCPCS: 71046; 99282